=== PATIENT | female | born 1945 | race Caucasian/White ===

== ENCOUNTER 2016-12-06 09:08 | Inpatient (IN) | payer OTHER ==
[~2016-12-06] VITALS: Ht 157.5 cm; Wt 92.0 kg
[~2016-12-06 09:08] MED LIST: ACET-1138 PO; ALBU1AER9 INH; ASPEC81 PO; CLB200 PO; FLVHFA110 INH; OTC SLEEP AID PO; OXYSR10 PO; RXC5 PO; SNK PO
[2016-12-06] MEDS ORDERED: HYDR-3419 PO (10:21)
--- NOTE | 2016-12-06 10:24 | EMERGENCY ROOM VISIT NOTE ---
History Report prepared by Hira: Jeremías Payne Under the Supervision of: Dr. Himanshu Zelaya M.D. First contact with patient: 09:26 Chief Complaint: LEG PAIN,LEG INJURY Stated Complaint: SWOLLEN SORE LEG History of Present Illness The patient is a 71 year old female who presents to the Emergency Room with complaints of worsening left leg pain that started 2 days ago. She also complains of swelling to that leg. The patient notes that her pain is worsened with walking. She denies any chest pain, shortness of breath, fevers, chills, or recent trauma or weight loss. The patient has been having some night-time sweating over the past few days, to the point where she has had to change her clothes. She has past medical history of a left DVT 20 years ago, as well as surgery 10 years ago on her left knee. The patient had a right knee replacement in July. She is not taking any hormonal therapies. She does not smoke or drink alcohol. The patient is not on any blood thinners. Source of History: patient Onset: 2 days ago Position: leg (left) Timing: worsening Modifying Factors (Worsening): exertion (walking) Associated Symptoms: + diaphoresis, No SOB, No chest pain, No chills, No fevers Note: Associated symptoms: Left leg swelling. Review of Systems See HPI for pertinent positives & negatives. A total of 10 systems reviewed and were otherwise negative. Past Medical & Surgical Medical Problems: (1) Arthritis of right knee (2) Left leg DVT Family History Cancer Social History Smoking Status: Never Smoker Alcohol Use: none Drug Use: none Housing Status: lives alone Occupation Status: retired Current/Historical Medications Scheduled Acetaminophen (Tylenol Extra Strength), 1,000 MG PO TID Albuterol (Proair Hfa), 2 PUFFS INH Q4HR PRN Aspirin (Aspirin EC Low Dose), 81 MG PO BID Celecoxib (Celebrex), 200 MG PO BID Levothyroxine Sodium (Synthroid), 50 MCG PO QAM Losartan Potassium (Losartan Potassium), 12.5 MG PO QAM Polyethylene Glycol 3350 (Miralax), 17 GM PO PRN Rivaroxaban (Xarelto), 15 MG PO BID Senna (Senna Lax), 2 TABS PO HS Tolterodine Tartrate (Detrol LA), 1 CAP PO QAM Venlafaxine Hcl (Venlafaxine Hcl Er), 1 TAB PO QAM [Otc Sleep Aid], 1-2 TAB PO HS Scheduled PRN Fluticasone Propionate (Flovent Hfa 110MCG Inhaler *), 2 PUFFS INH BID PRN for PRN Hydrocodone/Acetaminophen 5MG/325MG ([place] 5MG/325MG), 1 TAB PO Q8 PRN for Pain Allergies Coded Allergies: Potato (Verified Allergy, Severe, THROAT SWELLS,EYES ITCHY (RAW POTATOES ONLY), 12/06/16) KOLE Inhibitors (Verified Allergy, Unknown, COUGH, 12/06/16) Adhesives (Verified Allergy, Unknown, HEAVIER SURG TAPE-REDNESS SORE SKIN , 12/06/16) Cat Dander (Verified Allergy, Unknown, ITCHY NOSE, ITCHY EYES,RUNNY NOSE, 12/06/16) Grass (Verified Allergy, Unknown, GRASS,MOLD-ITCHY EYES RUNNY NOSE, ) Latex1 -Allergic Contact Dermititis (Verified Allergy, Unknown, CONTACT DERMATITIS, 12/06/16) Tetanus Toxoid (Verified Allergy, Unknown, SWELLING AT SITE, 12/06/16) Physical Exam Vital Signs Date Time Temp Pulse Resp B/P Pulse Ox O2 Delivery O2 Flow Rate FiO2 12/06/16 13:47 100 18 129/84 94 Room Air 12/06/16 13:02 101 12/06/16 12:40 95 Room Air 12/06/16 12:40 105 19 150/83 95 Room Air 12/06/16 10:31 97 18 148/100 95 Room Air 12/06/16 09:17 37.0 91 18 123/55 92 Room Air Physical Exam GENERAL: Patient is a healthy-appearing well-nourished HEAD: Normocephalic atraumatic EYES: Ocular movements intact pupils equal and react to light OROPHARYNX mucous membranes are moist no exudates present no erythema or edema present NECK: Supple no nuchal rigidity CHEST: Good equal expansion LUNGS: Clear and equal to auscultation CARDIAC: Normal S1 and S2 ABDOMEN: Soft nontender no guarding BACK: No CVA tenderness EXTREMITIES: Left leg is grossly swollen NEURO: Patient is following commands is answering questions appropriately. Alert and oriented x3 Cranial Nerves 2-12 grossly intact Medical Decision & Procedures ER Provider Diagnostic Interpretation: X-ray results as stated below per my interpretation and radiologist interpretation. Other radiology results as stated below per my review and radiologist interpretation: ULTRASOUND LEFT LOWER EXTREMITY VENOUS CLINICAL HISTORY: Left leg swelling. COMPARISON STUDY: No priors. TECHNIQUE: Real-time, grayscale, and color Doppler sonography of the deep veins of the left lower extremity was performed from the inguinal crease to the calf. Compression and augmentation were utilized. FINDINGS: There is extensive and nearly occlusive deep venous thrombosis seen throughout the left lower extremity, extending from the left common femoral vein to the calf. There is complete thrombosis of the left greater saphenous vein at the junction with the common femoral vein. Thrombus is also seen within the profunda femoris vein. IMPRESSION: Extensive left lower extremity deep venous thrombosis as above. Electronically signed by: Henrry Vazquez M.D. 12/06/2016 12:28 PM Dictated Date/Time: 12/06/2016 12:[address] ANGIOGRAM OF THE CHEST CLINICAL HISTORY: Leg pain. Deep venous thrombosis. COMPARISON STUDY: Chest x-ray dated 05/30/2016. TECHNIQUE: Following the IV administration of 118 cc of Optiray 320, CT angiogram of the chest was performed from the upper abdomen to the thoracic inlet utilizing the pulmonary embolus protocol. Images are reviewed in the axial, sagittal, and coronal planes. 3-D MIPS images are created and assessed. IV contrast was administered without complication. CT DOSE: 581.22 mGy.cm FINDINGS: Thyroid: Imaged portions of the thyroid gland are normal in size and attenuation. Thoracic aorta: There is mild after carotid calcification of the thoracic aorta, which is normal in caliber and demonstrates bovine variant arch anatomy. No dissection is seen. Pulmonary vasculature: The pulmonary trunk is normal in caliber. There are no filling defects identified in main, lobar, or proximal segmental pulmonary branches to suggest pulmonary embolus. Evaluation of the peripheral branches is degraded by motion artifact. Heart: The heart is top normal in size and without pericardial effusion. Lungs and pleural spaces: Evaluation of the lung parenchyma is significantly degraded by expiratory motion artifact. There is no lobar consolidation or pleural effusion. Scarring is noted in the left upper lobe. Trachea and central airways appear clear. Mild diffuse peribronchial thickening is noted. Foci of air trapping are suggested. Mild mucous plugging is noted in the left lower lobe. Mediastinum: There is no mediastinal lymphadenopathy. Ronit: Clear. Axillae: There is no axillary lymphadenopathy. Upper abdomen: There is a small hiatal hernia. Fatty atrophy is noted in the pancreas. Partially visualized upper abdominal viscera is otherwise within normal limits. Skeletal structures: No lytic or blastic bony lesions are seen. IMPRESSION: 1. There is no evidence of pulmonary embolus in the main, lobar, or proximal segmental pulmonary arteries. 2. There is no airspace consolidation or pleural effusion. 3. Mild diffuse peribronchial thickening suggests reactive airway disease. Small foci of mucous plugging are noted in the lower lobes. Clinical correlation will be required. 4. Additional changes as above. Electronically signed by: Henrry Vazquez M.D. 12/06/2016 1:54 PM Dictated Date/Time: 12/06/2016 1:47 PM Laboratory Results Test 12/06/16 12:45 12/06/16 13:07 12/06/16 14:00 Immature Granulocyte % (Auto) 0.9 % White Blood Count 16.37 K/uL (4.8-10.8) Red Blood Count 4.78 M/uL (4.2-5.4) Hemoglobin 12.6 g/dL (12.0-16.0) Hematocrit 37.5 % (37-47) Mean Corpuscular Volume 78.5 fL (80-100) Mean Corpuscular Hemoglobin 26.4 pg (25-34) Mean Corpuscular Hemoglobin Concent 33.6 g/dl (32-36) Platelet Count 181 K/uL (130-400) Mean Platelet Volume 9.9 fL (7.4-10.4) Neutrophils (%) (Auto) 81.9 % Lymphocytes (%) (Auto) 8.7 % Monocytes (%) (Auto) 8.2 % Eosinophils (%) (Auto) 0.2 % Basophils (%) (Auto) 0.1 % Neutrophils # (Auto) 13.41 K/uL (1.4-6.5) Lymphocytes # (Auto) 1.43 K/uL (1.2-3.4) Monocytes # (Auto) 1.34 K/uL (0.11-0.59) Eosinophils # (Auto) 0.03 K/uL (0-0.5) Basophils # (Auto) 0.02 K/uL (0-0.2) Immature Granulocyte # (Auto) 0.14 K/uL (0.00-0.02) Activated Partial Thromboplast Time 25.8 SECONDS (21.0-31.0) Partial Thromboplastin Ratio 1.0 Total Bilirubin 0.8 mg/dl (0.2-1) Aspartate Amino Transf (AST/SGOT) 14 U/L (15-37) Alanine Aminotransferase (ALT/SGPT) 16 U/L (12-78) Alkaline Phosphatase 66 U/L (45-117) Total Protein 6.8 gm/dl (6.4-8.2) Albumin 2.9 gm/dl (3.4-5.0) Globulin 3.9 gm/dl (2.5-4.0) Albumin/Globulin Ratio 0.7 (0.9-2) Hepatitis C Antibody Screen NEG (NEG) Bedside Hemoglobin 12.6 g/dl (12.0-16.0) Bedside Hematocrit 37 % (37-47) Bedside Sodium 140 mEq/L (135-144) Bedside Potassium 3.4 mEq/L (3.3-5.0) Bedside Chloride 105 mEq/L (101-112) Bedside Total CO2 22 mEq/l (24-31) Bedside Blood Urea Nitrogen 14 mg/dl (7-18) Bedside Creatinine 0.9 mg/dl (0.6-1.3) Bedside Glucose (other) 90 mg/dl (70-99) Bedside Ionized Calcium (Rosario) 1.13 mmol/l (1.12-1.32) Labs reviewed by ED physician. Medications Administered Medications (Trade) Dose Ordered Sig/Anna Route Start Time Stop Time Status Last Admin Dose Admin Acetaminophen/ Hydrocodone Bitart ([place] 5/325 Tab) 2 tab NOW STAT PO 12/06/16 10:25 12/06/16 10:26 DC 12/06/16 10:31 2 TAB ED Course 1019: Past medical records reviewed. The patient was evaluated in room A2. A complete history and physical examination was performed. 1025: Ordered [place] 5/325 Tab 2 tab PO. 1403: I reevaluated the patient and she is resting comfortably. The patient verbally expressed understanding and agreement of the treatment plan. The patient will be evaluated for further treatment. 1406: I discussed the patient with Dr. Ulices Sauceda psychiatric aide instructor - he will evaluate the patient for further treatment. Medical Decision Differential diagnosis: Etiologies such as DVT, musculoskeletal, infection, joint effusion, trauma, lymphedema, idiopathic, CHF, as well as others were entertained. This is a 71-year-old female who presents emergency department complaining of swollen left leg to the point that the patient cannot longer walk in her leg. She does have a large DVT present. Because of the size of the DVT the patient was also sent for CAT scan of the chest. This did not show any evidence of a PE. I did discuss the case with the hospitalist service who agreed to admit the patient. Patient family were in agreement with the treatment plan. Consults Time Called: 1400 Consulting Physician: Dr. Ulices Sauceda psychiatric aide instructor Returned Call: 1406 I discussed the patient with Dr. Ulices Sauceda psychiatric aide instructor - he will evaluate the patient for further treatment. Impression Primary Impression: Deep vein thrombosis Scribe Attestation The scribe's documentation has been prepared under my direction and personally reviewed by me in its entirety. I confirm that the note above accurately reflects all work, treatment, procedures, and medical decision making performed by me. Departure Information Dispostion Being Evaluated By Hospitalist Prescriptions Rivaroxaban (Xarelto) 15 Mg Tab 15 MG PO BID for 21 Days, #42 Prov: Ayana Betancur M.D. 12/07/16 Hydrocodone/Acetaminophen 5MG/325MG ([place] 5MG/325MG) Tab 1 TAB PO Q8 Y for Pain for 7 Days, #21 TAB PRN PAIN Prov: Ayana Betancur M.D. 12/07/16 Referrals Kari Walters D.O. (PCP) Patient Instructions My [facility] Problem Qualifiers Primary Impression: Deep vein thrombosis DVT location: lower extremity Affected thrombotic vein of extremity: unspecified vein of extremity Laterality: left Chronicity: acute Qualified Codes: I82.402 - Acute embolism and thrombosis of unspecified deep veins of left lower extremity
[2016-12-06] MEDS ORDERED: HYDROCODONE/ACETAMOPHEN 5/325MG TAB PO STA (10:25)
--- NOTE | 2016-12-06 12:29 | DIAGNOSTIC IMAGING REPORT ---
ULTRASOUND LEFT LOWER EXTREMITY VENOUS CLINICAL HISTORY: Left leg swelling. COMPARISON STUDY: No priors. TECHNIQUE: Real-time, grayscale, and color Doppler sonography of the deep veins of the left lower extremity was performed from the inguinal crease to the calf. Compression and augmentation were utilized. FINDINGS: There is extensive and nearly occlusive deep venous thrombosis seen throughout the left lower extremity, extending from the left common femoral vein to the calf. There is complete thrombosis of the left greater saphenous vein at the junction with the common femoral vein. Thrombus is also seen within the profunda femoris vein. IMPRESSION: Extensive left lower extremity deep venous thrombosis as above. Electronically signed by: Henrry Vazquez M.D. 12/06/2016 12:28 PM Dictated Date/Time: 12/06/2016 12:26 PM
[2016-12-06] MEDS ORDERED: OPTIRAY 320 IV PRN (12:45)
[2016-12-06 13:01] LABS: BASO % 0.1 %; BASO ABS # 0.02 K/uL (0-0.2); COMPLETE YES; EOS % 0.2 %; HEMATOCRIT 37.5 % (37-47); IG% 0.9 %; LYMPH % 8.7 %; LYMPH ABS # 1.43 K/uL (1.2-3.4); MEAN CELL VOLUME 78.5 fL (80-100); MEAN CORPUSCULAR HEMOGLOBIN 26.4 pg (25-34); MEAN CORPUSCULAR HGB CONC 33.6 g/dl (32-36); MEAN PLATELET VOLUME 9.9 fL (7.4-10.4); MONO % 8.2 %; NEUT % 81.9 %; PLATELET COUNT 181 K/uL (130-400); RED BLOOD COUNT 4.78 M/uL (4.2-5.4); WHITE BLOOD COUNT 16.37 K/uL (4.8-10.8)
[2016-12-06 13:18] LABS: ISTAT CREATININE 0.9 mg/dl (0.6-1.3); ISTAT HEMOGLOBIN 12.6 g/dl (12.0-16.0); ISTAT IONIZED CALCIUM 1.13 mmol/l (1.12-1.32)
[2016-12-06 13:18] LABS: BUN/CREATININE RATIO 15.9 (10-20); CALCIUM 8.3 mg/dl (8.5-10.1); CREATININE 0.92 mg/dl (0.60-1.20); POTASSIUM 3.5 mmol/L (3.5-5.1)
[2016-12-06 13:21] LABS: ALB/GLOB RATIO 0.7 (0.9-2)
[2016-12-06 13:25] LABS: INR 1.1 (0.9-1.1); PROTHROMBIN TIME (PATIENT) 11.4 SECONDS (9.0-12.0)
--- NOTE | 2016-12-06 13:55 | DIAGNOSTIC IMAGING REPORT ---
CT ANGIOGRAM OF THE CHEST CLINICAL HISTORY: Leg pain. Deep venous thrombosis. COMPARISON STUDY: Chest x-ray dated 05/30/2016. TECHNIQUE: Following the IV administration of 118 cc of Optiray 320, CT angiogram of the chest was performed from the upper abdomen to the thoracic inlet utilizing the pulmonary embolus protocol. Images are reviewed in the axial, sagittal, and coronal planes. 3-D MIPS images are created and assessed. IV contrast was administered without complication. CT DOSE: 581.22 mGy.cm FINDINGS: Thyroid: Imaged portions of the thyroid gland are normal in size and attenuation. Thoracic aorta: There is mild after carotid calcification of the thoracic aorta, which is normal in caliber and demonstrates bovine variant arch anatomy. No dissection is seen. Pulmonary vasculature: The pulmonary trunk is normal in caliber. There are no filling defects identified in main, lobar, or proximal segmental pulmonary branches to suggest pulmonary embolus. Evaluation of the peripheral branches is degraded by motion artifact. Heart: The heart is top normal in size and without pericardial effusion. Lungs and pleural spaces: Evaluation of the lung parenchyma is significantly degraded by expiratory motion artifact. There is no lobar consolidation or pleural effusion. Scarring is noted in the left upper lobe. Trachea and central airways appear clear. Mild diffuse peribronchial thickening is noted. Foci of air trapping are suggested. Mild mucous plugging is noted in the left lower lobe. Mediastinum: There is no mediastinal lymphadenopathy. Ronit: Clear. Axillae: There is no axillary lymphadenopathy. Upper abdomen: There is a small hiatal hernia. Fatty atrophy is noted in the pancreas. Partially visualized upper abdominal viscera is otherwise within normal limits. Skeletal structures: No lytic or blastic bony lesions are seen. IMPRESSION: 1. There is no evidence of pulmonary embolus in the main, lobar, or proximal segmental pulmonary arteries. 2. There is no airspace consolidation or pleural effusion. 3. Mild diffuse peribronchial thickening suggests reactive airway disease. Small foci of mucous plugging are noted in the lower lobes. Clinical correlation will be required. 4. Additional changes as above. Electronically signed by: Henrry Vazquez M.D. 12/06/2016 1:54 PM Dictated Date/Time: 12/06/2016 1:47 PM
[2016-12-06] MEDS ORDERED: ENOXAPARIN 1 MG/KG SQ SCH (14:45)
[2016-12-06] MEDS ORDERED: ACETAMINOPHEN 325 MG TAB PO PRN (15:00)
[2016-12-06] MEDS ORDERED: ONDANSETRON INJ 2 MG/ML 2 ML VIAL IV PRN (15:00)
[2016-12-06] MEDS ORDERED: ENOXAPARIN 100 MG/1ML SYR SQ SCH (16:15)
[2016-12-06] MEDS ORDERED: FLUTICASONE HFA 110MCG INHALER INH PRN (16:30)
[2016-12-06] MEDS ORDERED: HYDROCODONE/ACETAMOPHEN 5/325MG TAB PO PRN (16:30)
[2016-12-06 17:00] VITALS: BP 118/77; PULSE 93; PULSE 96; TEMP 36.5; O2SAT 93; O2SAT 94; Ht 157.5 cm; Wt 92.0 kg
--- NOTE | 2016-12-06 20:32 | History and Physical ---
History & Physical Date & Time of Service: Dec 06, 2016 at 20:01 Chief Complaint: Deep Vein Thrombosis Primary Care Physician: Kari Walters D.O. History of Present Illness Source: patient, clinic records, hospital records 71 year old female with PMH HTN, obesity, history of MTHFR mutation, OA presents to the Emergency Room with complaints of worsening LLE pain and swelling that started since Saturday. Pt said that today the pain got worst. she said that she cannot walk or stand for a long period of time on the left leg due to the pain. She said that she has been having some night-time sweating over the past few days. she had right knee surgery done last July. She denies any recent travel, long car trip or trauma. She had a Right LE DVT back about 15 to 20 years ago. Denies any chest pain, shortness of breath, fevers, palpitation. Past Medical/Surgical History Medical Problems: (1) Left leg DVT Status: Resolved Family History Cancer Social History Smoking Status: Never Smoker Alcohol Use: none Drug Use: none Occupational Status: retired Immunizations History of Influenza Vaccine: Yes History of Tetanus Vaccine?: No History of Pneumococcal: Yes History of Hepatitis B Vaccine: No Multi-Drug Resistant Organisms History of MDRO: No Allergies Coded Allergies: Potato (Verified Allergy, Severe, THROAT SWELLS,EYES ITCHY (RAW POTATOES ONLY), 12/06/16) KOLE Inhibitors (Verified Allergy, Unknown, COUGH, 12/06/16) Adhesives (Verified Allergy, Unknown, HEAVIER SURG TAPE-REDNESS SORE SKIN , 12/06/16) Cat Dander (Verified Allergy, Unknown, ITCHY NOSE, ITCHY EYES,RUNNY NOSE, 12/06/16) Grass (Verified Allergy, Unknown, GRASS,MOLD-ITCHY EYES RUNNY NOSE, ) Latex1 -Allergic Contact Dermititis (Verified Allergy, Unknown, CONTACT DERMATITIS, 12/06/16) Tetanus Toxoid (Verified Allergy, Unknown, SWELLING AT SITE, 12/06/16) Home Medications Scheduled Acetaminophen (Tylenol Extra Strength), 1,000 MG PO TID Albuterol (Proair Hfa), 2 PUFFS INH Q4HR PRN Aspirin (Aspirin EC Low Dose), 81 MG PO BID Celecoxib (Celebrex), 200 MG PO BID Levothyroxine Sodium (Synthroid), 50 MCG PO QAM Losartan Potassium (Losartan Potassium), 12.5 MG PO QAM Polyethylene Glycol 3350 (Miralax), 17 GM PO PRN Senna (Senna Lax), 2 TABS PO HS Tolterodine Tartrate (Detrol LA), 1 CAP PO QAM Venlafaxine Hcl (Venlafaxine Hcl Er), 1 TAB PO QAM [Otc Sleep Aid], 1-2 TAB PO HS Scheduled PRN Fluticasone Propionate (Flovent Hfa 110MCG Inhaler *), 2 PUFFS INH BID PRN for PRN Physical Exam Vital Signs Date Time Temp Pulse Resp B/P Pulse Ox O2 Delivery O2 Flow Rate FiO2 12/06/16 17:00 36.5 96 24 118/77 93 Room Air 12/06/16 16:52 101 18 100/79 93 Room Air 12/06/16 15:42 93 18 120/80 93 Room Air 12/06/16 13:47 100 18 129/84 94 Room Air 12/06/16 13:02 101 12/06/16 12:40 95 Room Air 12/06/16 12:40 105 19 150/83 95 Room Air 12/06/16 10:31 97 18 148/100 95 Room Air 12/06/16 09:17 37.0 91 18 123/55 92 Room Air General Appearance: WD/WN, no apparent distress Head: normocephalic, atraumatic Eyes: normal inspection, PERRL, EOMI ENT: normal ENT inspection, hearing grossly normal Neck: supple, no JVD Respiratory/Chest: lungs clear, normal breath sounds, no respiratory distress, no accessory muscle use Cardiovascular: regular rate, rhythm, no JVD Abdomen/GI: normal bowel sounds, non tender, soft Back: normal inspection, no CVA tenderness Extremities/Musculoskelatal: + calf tenderness (left), + pertinent finding ( left left tendernes and swelling) Neurologic/Psych: fine hairer II-XII nml as tested, no motor/sensory deficits, alert, normal mood/affect, oriented x 3 Skin: warm/dry, no rash Diagnostics Laboratory Results Results Past 24 Hours Test 12/06/16 12:45 12/06/16 13:07 12/06/16 14:00 Range/Units White Blood Count 16.37 4.8-10.8 K/uL Red Blood Count 4.78 4.2-5.4 M/uL Hemoglobin 12.6 12.0-16.0 g/dL Hematocrit 37.5 37-47 % Mean Corpuscular Volume 78.5 80-100 fL Mean Corpuscular Hemoglobin 26.4 25-34 pg Mean Corpuscular Hemoglobin Concent 33.6 32-36 g/dl Platelet Count 181 130-400 K/uL Mean Platelet Volume 9.9 7.4-10.4 fL Neutrophils (%) (Auto) 81.9 % Lymphocytes (%) (Auto) 8.7 % Monocytes (%) (Auto) 8.2 % Eosinophils (%) (Auto) 0.2 % Basophils (%) (Auto) 0.1 % Neutrophils # (Auto) 13.41 1.4-6.5 K/uL Lymphocytes # (Auto) 1.43 1.2-3.4 K/uL Monocytes # (Auto) 1.34 0.11-0.59 K/uL Eosinophils # (Auto) 0.03 0-0.5 K/uL Basophils # (Auto) 0.02 0-0.2 K/uL RDW Standard Deviation 49.4 36.4-46.3 fL RDW Coefficient of Variation 17.2 11.5-14.5 % Immature Granulocyte % (Auto) 0.9 % Immature Granulocyte # (Auto) 0.14 0.00-0.02 K/uL Prothrombin Time 11.4 9.0-12.0 SECONDS Prothromb Time International Ratio 1.1 0.9-1.1 Activated Partial Thromboplast Time 25.8 21.0-31.0 SECONDS Partial Thromboplastin Ratio 1.0 Sodium Level 142 136-145 mmol/L Potassium Level 3.5 3.5-5.1 mmol/L Chloride Level 109 98-107 mmol/L Carbon Dioxide Level 24 21-32 mmol/L Anion Gap 9.0 17.0 16-25 mmol/L Blood Urea Nitrogen 15 7-18 mg/dl Creatinine 0.92 0.60-1.20 mg/dl Est Creatinine Clear Calc Drug Dose 60.1 ml/min Estimated GFR () 73.1 Estimated GFR (Non- 63.1 BUN/Creatinine Ratio 15.9 10-20 Random Glucose 89 70-99 mg/dl Calcium Level 8.3 8.5-10.1 mg/dl Total Bilirubin 0.8 0.2-1 mg/dl Aspartate Amino Transf (AST/SGOT) 14 15-37 U/L Alanine Aminotransferase (ALT/SGPT) 16 12-78 U/L Alkaline Phosphatase 66 45-117 U/L Total Protein 6.8 6.4-8.2 gm/dl Albumin 2.9 3.4-5.0 gm/dl Globulin 3.9 2.5-4.0 gm/dl Albumin/Globulin Ratio 0.7 0.9-2 Bedside Hemoglobin 12.6 12.0-16.0 g/dl Bedside Hematocrit 37 37-47 % Bedside Sodium 140 135-144 mEq/L Bedside Potassium 3.4 3.3-5.0 mEq/L Bedside Chloride 105 101-112 mEq/L Bedside Total CO2 22 24-31 mEq/l Bedside Blood Urea Nitrogen 14 7-18 mg/dl Bedside Creatinine 0.9 0.6-1.3 mg/dl Bedside Glucose (other) 90 70-99 mg/dl Bedside Ionized Calcium (Rosario) 1.13 1.12-1.32 mmol/l Diagnostic Radiology ULTRASOUND LEFT LOWER EXTREMITY VENOUS CLINICAL HISTORY: Left leg swelling. COMPARISON STUDY: No priors. TECHNIQUE: Real-time, grayscale, and color Doppler sonography of the deep veins of the left lower extremity was performed from the inguinal crease to the calf. Compression and augmentation were utilized. FINDINGS: There is extensive and nearly occlusive deep venous thrombosis seen throughout the left lower extremity, extending from the left common femoral vein to the calf. There is complete thrombosis of the left greater saphenous vein at the junction with the common femoral vein. Thrombus is also seen within the profunda femoris vein. IMPRESSION: Extensive left lower extremity deep venous thrombosis as above. Electronically signed by: Henrry Vazquez M.D. 12/06/2016 12:[address] ANGIOGRAM OF THE CHEST CLINICAL HISTORY: Leg pain. Deep venous thrombosis. COMPARISON STUDY: Chest x-ray dated 05/30/2016. TECHNIQUE: Following the IV administration of 118 cc of Optiray 320, CT angiogram of the chest was performed from the upper abdomen to the thoracic inlet utilizing the pulmonary embolus protocol. Images are reviewed in the axial, sagittal, and coronal planes. 3-D MIPS images are created and assessed. IV contrast was administered without complication. CT DOSE: 581.22 mGy.cm FINDINGS: Thyroid: Imaged portions of the thyroid gland are normal in size and attenuation. Thoracic aorta: There is mild after carotid calcification of the thoracic aorta, which is normal in caliber and demonstrates bovine variant arch anatomy. No dissection is seen. Pulmonary vasculature: The pulmonary trunk is normal in caliber. There are no filling defects identified in main, lobar, or proximal segmental pulmonary branches to suggest pulmonary embolus. Evaluation of the peripheral branches is degraded by motion artifact. Heart: The heart is top normal in size and without pericardial effusion. Lungs and pleural spaces: Evaluation of the lung parenchyma is significantly degraded by expiratory motion artifact. There is no lobar consolidation or pleural effusion. Scarring is noted in the left upper lobe. Trachea and central airways appear clear. Mild diffuse peribronchial thickening is noted. Foci of air trapping are suggested. Mild mucous plugging is noted in the left lower lobe. Mediastinum: There is no mediastinal lymphadenopathy. Ronit: Clear. Axillae: There is no axillary lymphadenopathy. Upper abdomen: There is a small hiatal hernia. Fatty atrophy is noted in the pancreas. Partially visualized upper abdominal viscera is otherwise within normal limits. Skeletal structures: No lytic or blastic bony lesions are seen. IMPRESSION: 1. There is no evidence of pulmonary embolus in the main, lobar, or proximal segmental pulmonary arteries. 2. There is no airspace consolidation or pleural effusion. 3. Mild diffuse peribronchial thickening suggests reactive airway disease. Small foci of mucous plugging are noted in the lower lobes. Clinical correlation will be required. 4. Additional changes as above. Electronically signed by: Henrry Vazquez M.D. Impression Assessment and Plan LLE DVT/PAIN Doppler U/S showed There is extensive and nearly occlusive deep venous thrombosis seen throughout the left lower extremity, extending from the left common femoral vein to the calf. There is complete thrombosis of the left greater saphenous vein at the junction with the common femoral vein CTA thorax was negative for PE VS stable, saturated well RA Coag work up pending Will start on lovenox 90 mg BID and coumadin 5 mg Will monitor INR Will do hydrocodone prn for the pain continue monitor pt. HTN Continue losartan 12.5 mg daily continue monitor BP ELEVATED DVT mostly reactive due to DVT afebrile will monitor CBC Asthma stable continue respiratory treatment Obesity Diet and exrcise DVT px on lovenox/coumadin CODE STATUS DNR Level of Care Med/Surg Advanced Directives Existing Living Will: No Existing Power of Donor Specialist: No Resuscitation Status DO NOT RESUSCITATE VTE Prophylaxis VTE Risk Assessment Done? Y/N: Yes Risk Level: High Given or contraindicated: Enoxaparin (Lovenox)SQ, Warfarin (Coumadin) Additional Copies To Kari Walters D.O.
[2016-12-06] MEDS ORDERED: WARFARIN SOD 5 MG TAB PO ONE (21:00)
[2016-12-06] MEDS: ASPIRIN 81 MG ECTAB PO SCH (22:07)
[2016-12-06 23:03] VITALS: BP 120/73; PULSE 95; TEMP 36.7; O2SAT 92
[2016-12-06] MEDS ORDERED: LORAZEPAM 0.5 MG TAB PO ONE (23:30)
[2016-12-07] VITALS: O2SAT 95
[2016-12-07] MEDS ORDERED: HYDROmorphone INJ 0.5 MG/0.5 ML SYR IV ONE (02:00)
[2016-12-07] MEDS ORDERED: HYDROCODONE/ACETAMOPHEN 5/325MG TAB PO PRN ×2 (04:00→06:00)
[2016-12-07] MEDS ORDERED: ENOXAPARIN 100 MG/1ML SYR SQ SCH (06:00)
[2016-12-07] MEDS ORDERED: LEVOTHYROXINE 50 MCG TAB PO SCH (06:30)
[2016-12-07 07:32] LABS: HEMATOCRIT 35.1 % (37-47); MEAN CELL VOLUME 80.9 fL (80-100); MEAN CORPUSCULAR HEMOGLOBIN 26.3 pg (25-34); MEAN CORPUSCULAR HGB CONC 32.5 g/dl (32-36); MEAN PLATELET VOLUME 10.1 fL (7.4-10.4); PLATELET COUNT 181 K/uL (130-400); RED BLOOD COUNT 4.34 M/uL (4.2-5.4); WHITE BLOOD COUNT 11.29 K/uL (4.8-10.8)
[2016-12-07 07:37] LABS: INR 1.1 (0.9-1.1); PROTHROMBIN TIME (PATIENT) 11.3 SECONDS (9.0-12.0)
[2016-12-07 08:06] VITALS: O2SAT 95
[2016-12-07 08:07] VITALS: BP 132/84; PULSE 80; TEMP 36.8; O2SAT 95
[2016-12-07 08:17] LABS: BUN/CREATININE RATIO 18.1 (10-20); CALCIUM 8.5 mg/dl (8.5-10.1); CREATININE 0.98 mg/dl (0.60-1.20); POTASSIUM 3.6 mmol/L (3.5-5.1)
[2016-12-07] MEDS: ASPIRIN 81 MG ECTAB PO SCH (08:17)
[2016-12-07] MEDS ORDERED: TOLTERODINE TARTRATE LA 4 MG CAPCR PO SCH (09:00)
[2016-12-07] MEDS ORDERED: VENLAFAXINE HCL XR 150 MG CAPXR PO SCH (09:00)
[2016-12-07] MEDS ORDERED: LOSARTAN POTASSIUM 25 MG TAB PO SCH (09:00)
[2016-12-07 09:22] VITALS: O2SAT 95
--- NOTE | 2016-12-07 12:30 | Progress Note ---
Medicine Progress Note Date & Time of Visit: Dec 07, 2016 at 12:17. Subjective Pt was seen and examined Lying in bed with no distress Pt said that she is still having pain in the left leg The leg is swollen Denies any chest pain, palpitation, dizziness and SOB Objective Last 8 Hrs Date Time Temp Pulse Resp B/P Pulse Ox O2 Delivery O2 Flow Rate FiO2 12/07/16 09:22 95 Room Air 12/07/16 08:07 36.8 80 16 132/84 95 Room Air 12/07/16 08:06 95 Room Air Physical Exam: General- No acute distress Head- atraumatic Eyes- PERRL, EOMI ENT- oropharynx clear Neck- supple, no JVD Lungs- clear to auscultation and percussion Heart- regular rhythm; no murmur Abdomen- normal bowel sounds, soft Extremities- + LLE edema and pain Neuro- alert, oriented x 3; PERRL, EOMI Skin- warm & dry Laboratory Results: Last 24 Hours Test 12/06/16 12:45 12/06/16 13:07 12/06/16 14:00 12/07/16 07:18 White Blood Count 16.37 K/uL 11.29 K/uL Red Blood Count 4.78 M/uL 4.34 M/uL Hemoglobin 12.6 g/dL 11.4 g/dL Hematocrit 37.5 % 35.1 % Mean Corpuscular Volume 78.5 fL 80.9 fL Mean Corpuscular Hemoglobin 26.4 pg 26.3 pg Mean Corpuscular Hemoglobin Concent 33.6 g/dl 32.5 g/dl Platelet Count 181 K/uL 181 K/uL Mean Platelet Volume 9.9 fL 10.1 fL Neutrophils (%) (Auto) 81.9 % Lymphocytes (%) (Auto) 8.7 % Monocytes (%) (Auto) 8.2 % Eosinophils (%) (Auto) 0.2 % Basophils (%) (Auto) 0.1 % Neutrophils # (Auto) 13.41 K/uL Lymphocytes # (Auto) 1.43 K/uL Monocytes # (Auto) 1.34 K/uL Eosinophils # (Auto) 0.03 K/uL Basophils # (Auto) 0.02 K/uL RDW Standard Deviation 49.4 fL 52.4 fL RDW Coefficient of Variation 17.2 % 17.6 % Immature Granulocyte % (Auto) 0.9 % Immature Granulocyte # (Auto) 0.14 K/uL Prothrombin Time 11.4 SECONDS 11.3 SECONDS Prothromb Time International Ratio 1.1 1.1 Activated Partial Thromboplast Time 25.8 SECONDS Partial Thromboplastin Ratio 1.0 Sodium Level 142 mmol/L 139 mmol/L Potassium Level 3.5 mmol/L 3.6 mmol/L Chloride Level 109 mmol/L 105 mmol/L Carbon Dioxide Level 24 mmol/L 23 mmol/L Anion Gap 9.0 mmol/L 17.0 mmol/L 11.0 mmol/L Blood Urea Nitrogen 15 mg/dl 18 mg/dl Creatinine 0.92 mg/dl 0.98 mg/dl Est Creatinine Clear Calc Drug Dose 60.1 ml/min 56.4 ml/min Estimated GFR () 73.1 67.7 Estimated GFR (Non- 63.1 58.4 BUN/Creatinine Ratio 15.9 18.1 Random Glucose 89 mg/dl 114 mg/dl Calcium Level 8.3 mg/dl 8.5 mg/dl Total Bilirubin 0.8 mg/dl Aspartate Amino Transf (AST/SGOT) 14 U/L Alanine Aminotransferase (ALT/SGPT) 16 U/L Alkaline Phosphatase 66 U/L Total Protein 6.8 gm/dl Albumin 2.9 gm/dl Globulin 3.9 gm/dl Albumin/Globulin Ratio 0.7 Hepatitis C Antibody Screen NEG Bedside Hemoglobin 12.6 g/dl Bedside Hematocrit 37 % Bedside Sodium 140 mEq/L Bedside Potassium 3.4 mEq/L Bedside Chloride 105 mEq/L Bedside Total CO2 22 mEq/l Bedside Blood Urea Nitrogen 14 mg/dl Bedside Creatinine 0.9 mg/dl Bedside Glucose (other) 90 mg/dl Bedside Ionized Calcium (Rosario) 1.13 mmol/l Assessment & Plan LLE DVT/PAIN Doppler U/S showed There is extensive and nearly occlusive deep venous thrombosis seen throughout the left lower extremity, extending from the left common femoral vein to the calf. There is complete thrombosis of the left greater saphenous vein at the junction with the common femoral vein CTA thorax was negative for PE VS stable, saturated well RA Coag work up pending Case discussed today with vascular for the complete saphenous vein that recommends to treat with anticoagulant. She was started on lovenox 90 mg BID and coumadin 5 mg yesterday Pt said that she would rather try the new anticoagulant agents Will check to see if her insurance will cover for the new agents Continue hydrocodone prn for the pain HTN Continue losartan 12.5 mg daily continue monitor BP ELEVATED DVT mostly reactive due to DVT afebrile WBC trending down Asthma stable continue respiratory treatment Obesity Diet and exrcise DVT px on lovenox/coumadin CODE STATUS DNR Current Inpatient Medications: Current Inpatient Medications Medications (Trade) Dose Ordered Sig/Anna Route Start Time Stop Time Status Last Admin Dose Admin Ioversol (Optiray 320) 100 ml UD PRN IV 12/06/16 12:45 12/10/16 12:44 Acetaminophen (Tylenol Tab) 650 mg Q4H PRN PO 12/06/16 15:00 01/05/17 14:59 Ondansetron HCl (Zofran Inj) 4 mg Q6H PRN IV 12/06/16 15:00 01/05/17 14:59 Aspirin (Ecotrin Tab) 81 mg BID PO 12/06/16 21:00 01/05/17 20:59 12/07/16 08:17 81 MG Fluticasone Propionate (Flovent Hfa 110MCG Inhaler) 2 puffs BID PRN INH 12/06/16 16:30 01/05/17 16:29 Levothyroxine Sodium (Synthroid Tab) 50 mcg DAILYBB PO 12/07/16 06:30 01/06/17 06:29 12/07/16 05:55 50 MCG Losartan Potassium (coZAAR TAB) 12.5 mg QAM PO 12/07/16 09:00 01/06/17 08:59 12/07/16 08:18 12.5 MG Tolterodine Tartrate (Detrol LA Cap) 4 mg QAM PO 12/07/16 09:00 01/06/17 08:59 12/07/16 08:17 4 MG Venlafaxine HCl (effeXOR EXTENDED REL CAP) 150 mg QAM PO 12/07/16 09:00 01/06/17 08:59 12/07/16 08:17 150 MG Enoxaparin Sodium (Lovenox Inj) 90 mg Q12@0600,1800 SQ 12/07/16 06:00 01/06/17 05:59 12/07/16 05:56 90 MG Warfarin Sodium (Coumadin Tab) 5 mg DAILY@16 PO 12/07/16 16:00 01/06/17 15:59 Acetaminophen/ Hydrocodone Bitart ([place] 5/325 Tab) pain not relieved by tylenol Q6HWA PRN PO 12/07/16 04:00 12/21/16 03:59
[2016-12-07 15:19] VITALS: BP 114/69; PULSE 97; TEMP 36.8; O2SAT 96
[2016-12-07] MEDS ORDERED: WARFARIN SOD 5 MG TAB PO SCH (16:00)
[2016-12-07] MEDS ORDERED: RIVAROXABAN TAB 15 MG TAB PO ONE (16:09)
[2016-12-07] MEDS ORDERED: HYDR-5688 PO (16:20)
--- NOTE | 2016-12-07 16:39 | Discharge Instructions ---
Discharge Instructions Admission Reason for Admission: Deep Vein Thrombosis Discharge Discharge Diagnosis / Problem: (1) Deep vein thrombosis VTE Date & Time Date of VTE Diagnosis: Dec 06, 2016 Time of VTE Diagnosis: 12:26 Discharge Goals Goal(s): Decrease discomfort, Improve function, Improve disease control Activity Recommendations Activity Limitations: resume your previous activity (as tolerated) . Instructions / Follow-Up Instructions / Follow-Up Please follow up with your primary care provider Dr. Walters on Dec 13 at 10: 50 am you will be starting on Xarelto that is a blood thinner, first dose given before discharge Please monitor for any bleeding, if any bleeding occurs, please seek medical attention Please give patient one tab of Xarelto to take home that she can take in the morning. Medication Instructions: Your condition is typically treated with an anticoagulant. Anticoagulants will thin your blood to help prevent new clots. * You should take her medication exactly as directed. * Never skip a dose. * Never take a double dose. If you miss a dose, take it as soon as you remember. Call your Primary Care doctor if you experience any of the following: * Swelling or Pain in your leg * Sudden, continuous pain deep in a muscle * Pain that worsens when you are active or when you stand still for a long time * Chest Pain * Sudden Shortness of Breath * Rapid or pounding heart beat * Fainting * Dizziness * Cough with blood or bloody sputum * Sweating more than normal * Bruises * Heavy or uncontrolled bleeding * Blood in your urine, stool or vomit * Black or tarry stools Caring for Your Self at Home: * Avoid sitting, standing or lying down for long periods without moving your legs and feet * When traveling by car, stop to get out and move around at least once every 3 hours * On long airplane, train or bus rides, get up and move around when possible * If you can't get up, wiggle your toes and tighten your calves to keep your blood moving Follow Up: It is important for you to keep your follow up appointments with your medical provider. Current Hospital Diet Patient's current hospital diet: AHA Diet (Heart Healthy) Discharge Diet Recommended Diet: AHA Diet (Heart Healthy) Pending Studies Studies pending at discharge: yes List of pending studies: Coag work up pending Medical Emergencies . Who to Call and When: Medical Emergencies: If at any time you feel your situation is an emergency, please call 911 immediately. . Non-Emergent Contact Non-Emergency issues call your: Primary Care Provider Call Non-Emergent contact if: you have any medication questions . . "Provider Documentation" section prepared by Ayana Betancur. VTE Core Measure Inpt VTE Proph given/why not?: Enoxaparin (Lovenox)SQ, Warfarin (Coumadin) [place] Drug Monitoring Program Search Results: no issues identified
[2016-12-07] MEDS ORDERED: XRL15 PO (16:40)
[2016-12-07] MEDS ORDERED: RIVAROXABAN TAB 15 MG TAB PO SCH ×2 (16:45)
[2016-12-07 17:21] VITALS: BP 114/69; PULSE 97; TEMP 36.8; O2SAT 96
[2016-12-08] MEDS ORDERED: RIVAROXABAN TAB 15 MG TAB PO SCH (09:00)
--- NOTE | 2016-12-09 21:14 | Discharge Summary ---
Discharge Summary Admission Date: Dec 06, 2016 at 15:03 Discharge Date: Dec 07, 2016 Discharge Disposition: Home Principal Diagnosis: LLE DVT Secondary Diagnoses/Problems: HTN Asthma Obesity Procedures: CT ANGIOGRAM OF THE CHEST CLINICAL HISTORY: Leg pain. Deep venous thrombosis. COMPARISON STUDY: Chest x-ray dated 05/30/2016. TECHNIQUE: Following the IV administration of 118 cc of Optiray 320, CT angiogram of the chest was performed from the upper abdomen to the thoracic inlet utilizing the pulmonary embolus protocol. Images are reviewed in the axial, sagittal, and coronal planes. 3-D MIPS images are created and assessed. IV contrast was administered without complication. CT DOSE: 581.22 mGy.cm FINDINGS: Thyroid: Imaged portions of the thyroid gland are normal in size and attenuation. Thoracic aorta: There is mild after carotid calcification of the thoracic aorta, which is normal in caliber and demonstrates bovine variant arch anatomy. No dissection is seen. Pulmonary vasculature: The pulmonary trunk is normal in caliber. There are no filling defects identified in main, lobar, or proximal segmental pulmonary branches to suggest pulmonary embolus. Evaluation of the peripheral branches is degraded by motion artifact. Heart: The heart is top normal in size and without pericardial effusion. Lungs and pleural spaces: Evaluation of the lung parenchyma is significantly degraded by expiratory motion artifact. There is no lobar consolidation or pleural effusion. Scarring is noted in the left upper lobe. Trachea and central airways appear clear. Mild diffuse peribronchial thickening is noted. Foci of air trapping are suggested. Mild mucous plugging is noted in the left lower lobe. Mediastinum: There is no mediastinal lymphadenopathy. Ronit: Clear. Axillae: There is no axillary lymphadenopathy. Upper abdomen: There is a small hiatal hernia. Fatty atrophy is noted in the pancreas. Partially visualized upper abdominal viscera is otherwise within normal limits. Skeletal structures: No lytic or blastic bony lesions are seen. IMPRESSION: 1. There is no evidence of pulmonary embolus in the main, lobar, or proximal segmental pulmonary arteries. 2. There is no airspace consolidation or pleural effusion. 3. Mild diffuse peribronchial thickening suggests reactive airway disease. Small foci of mucous plugging are noted in the lower lobes. Clinical correlation will be required. 4. Additional changes as above. Electronically signed by: Henrry Vazquez M.D. 12/06/2016 1:54 PM Dictated Date/Time: 12/06/2016 1:47 PM ULTRASOUND LEFT LOWER EXTREMITY VENOUS CLINICAL HISTORY: Left leg swelling. COMPARISON STUDY: No priors. TECHNIQUE: Real-time, grayscale, and color Doppler sonography of the deep veins of the left lower extremity was performed from the inguinal crease to the calf. Compression and augmentation were utilized. FINDINGS: There is extensive and nearly occlusive deep venous thrombosis seen throughout the left lower extremity, extending from the left common femoral vein to the calf. There is complete thrombosis of the left greater saphenous vein at the junction with the common femoral vein. Thrombus is also seen within the profunda femoris vein. IMPRESSION: Extensive left lower extremity deep venous thrombosis as above. Electronically signed by: Henrry Vazquez M.D. 12/06/2016 12:28 PM Dictated Date/Time: 12/06/2016 12:26 PM Medication Reconciliation New Medications: Rivaroxaban (Xarelto) 15 Mg Tab 15 MG PO BID for 21 Days, #42 Hydrocodone/Acetaminophen 5MG/325MG ([place] 5MG/325MG) Tab 1 TAB PO Q8 PRN for Pain for 7 Days, #21 TAB PRN PAIN Continued Medications: Acetaminophen (Tylenol Extra Strength) 500 Mg Tab 1000 MG PO TID for 21 Days, #126 TAB Albuterol (Proair Hfa) Aers 2 PUFFS INH Q4HR PRN Aspirin (Aspirin EC Low Dose) 81 Mg Ectab 81 MG PO BID for 30 Days Celecoxib (Celebrex) 200 Mg Cap 200 MG PO BID, #60 CAP Fluticasone Propionate (Flovent Hfa 110MCG Inhaler *) Aero 2 PUFFS INH BID PRN for PRN, 0 Refills Levothyroxine Sodium (Synthroid) 50 Mcg Tab 50 MCG PO QAM, TAB Losartan Potassium (Losartan Potassium) 25 Mg Tab 12.5 MG PO QAM Polyethylene Glycol 3350 (Miralax) 1 Pow Pow 17 GM PO PRN, #255 GM Senna (Senna Lax) 8.6 Mg Tab 2 TABS PO HS, #30 Tolterodine Tartrate (Detrol LA) 4 Mg Capcr 1 CAP PO QAM for 90 Days, #90 CAP 3 Refills Venlafaxine Hcl (Venlafaxine Hcl Er) 150 Mg Tab 1 TAB PO QAM for 30 Days, #30 TAB 2 Refills Discontinued Medications: [Otc Sleep Aid] () 1-2 TAB PO HS Admission Information HPI (per Admitting provider): 71 year old female with PMH HTN, obesity, history of MTHFR mutation, OA presents to the Emergency Room with complaints of worsening LLE pain and swelling that started since Saturday. Pt said that today the pain got worst. she said that she cannot walk or stand for a long period of time on the left leg due to the pain. She said that she has been having some night-time sweating over the past few days. she had right knee surgery done last July. She denies any recent travel, long car trip or trauma. She had a Right LE DVT back about 15 to 20 years ago. Denies any chest pain, shortness of breath, fevers, palpitation. 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 There is complete thrombosis of the left greater saphenous vein at the junction with the common femoral vein CTA thorax was negative for PE VS stable, saturated well RA Coag work up pending Case discussed today with vascular for the complete saphenous vein that recommends to treat with anticoagulant. She was started on lovenox 90 mg BID and coumadin 5 mg yesterday Pt said that she would rather try the new anticoagulant agents Will check to see if her insurance will cover for the new agents Continue hydrocodone prn for the pain HTN Continue losartan 12.5 mg daily continue monitor BP ELEVATED DVT mostly reactive due to DVT afebrile WBC trending down Asthma stable continue respiratory treatment Obesity Diet and exrcise DVT px on lovenox/coumadin CODE STATUS DNR Total time spent on discharge = 35 minutes This includes examination of the patient, discharge planning, medication reconciliation, and communication with other providers. Discharge Instructions Discharge Instructions Admission Reason for Admission: Deep Vein Thrombosis Discharge Discharge Diagnosis / Problem: (1) Deep vein thrombosis VTE Date & Time Date of VTE Diagnosis: Dec 06, 2016 Time of VTE Diagnosis: 12:26 Discharge Goals Goal(s): Decrease discomfort, Improve function, Improve disease control Activity Recommendations Activity Limitations: resume your previous activity (as tolerated) . Instructions / Follow-Up Instructions / Follow-Up Please follow up with your primary care provider Dr. Walters on Dec 13 at 10: 50 am you will be starting on Xarelto that is a blood thinner, first dose given before discharge Please monitor for any bleeding, if any bleeding occurs, please seek medical attention Please give patient one tab of Xarelto to take home that she can take in the morning. Medication Instructions: Your condition is typically treated with an anticoagulant. Anticoagulants will thin your blood to help prevent new clots. * You should take her medication exactly as directed. * Never skip a dose. * Never take a double dose. If you miss a dose, take it as soon as you remember. Call your Primary Care doctor if you experience any of the following: * Swelling or Pain in your leg * Sudden, continuous pain deep in a muscle * Pain that worsens when you are active or when you stand still for a long time * Chest Pain * Sudden Shortness of Breath * Rapid or pounding heart beat * Fainting * Dizziness * Cough with blood or bloody sputum * Sweating more than normal * Bruises * Heavy or uncontrolled bleeding * Blood in your urine, stool or vomit * Black or tarry stools Caring for Your Self at Home: * Avoid sitting, standing or lying down for long periods without moving your legs and feet * When traveling by car, stop to get out and move around at least once every 3 hours * On long airplane, train or bus rides, get up and move around when possible * If you can't get up, wiggle your toes and tighten your calves to keep your blood moving Follow Up: It is important for you to keep your follow up appointments with your medical provider. Current Hospital Diet Patient's current hospital diet: AHA Diet (Heart Healthy) Discharge Diet Recommended Diet: AHA Diet (Heart Healthy) Pending Studies Studies pending at discharge: yes List of pending studies: Coag work up pending Medical Emergencies . Who to Call and When: Medical Emergencies: If at any time you feel your situation is an emergency, please call 911 immediately. . Non-Emergent Contact Non-Emergency issues call your: Primary Care Provider Call Non-Emergent contact if: you have any medication questions . . "Provider Documentation" section prepared by Ayana Betancur. VTE Core Measure Inpt VTE Proph given/why not?: Enoxaparin (Lovenox)SQ, Warfarin (Coumadin) [place] Drug Monitoring Program Search Results: no issues identified Additional Copies To Kari Walters D.O.
[2016-12-12 16:35] LABS: ANTITHROMBINIII ACTIVITY** 95 % activity (80-120); B2 GLYCOPROTEIN IGA <9 SAU (<=20); B2 GLYCOPROTEIN IGG <9 SGU (<=20); B2 GLYCOPROTEIN IGM <9 SMU (<=20); LUPUS ANTICOAGULANT** TC36573X Negative (Negative); PROTEIN C ACTIVITY** TC 1777X 125 % (70-180); PROTEIN S ACT(FUNCT)**1779X 87 % (60-140)
[2017-04-23] MEDS ORDERED: DTRSR4 PO (12:14)
[2017-04-23] MEDS ORDERED: VENL150T33 PO (12:14)
[2017-04-23] MEDS ORDERED: POLY335019 PO (12:18)
[2017-04-23] MEDS ORDERED: CZR25 PO (14:33)
[2017-04-23] MEDS ORDERED: LEVO50TA PO (14:33)
== END 2016-12-07 17:51 | disposition home or self-care (01) | DRG 300 ==
LOC: ENRESERVDT → ENRESERVTM → C.EDB 09:10 → C.MS2W 15:03
PROVIDERS: ADMIT Internal Medicine; ATTEND Internal Medicine
DX: I82.412 Acute embolism and thrombosis of left femoral vein (principal); E72.12 Methylenetetrahydrofolate reductase deficiency; I82.492 Acute embolism and thrombosis of other specified deep vein of left lower extremity; I82.4Z2 Acute embolism and thrombosis of unspecified deep veins of left distal lower extremity; I10 Essential (primary) hypertension; J45.909 Unspecified asthma, uncomplicated; E66.9 Obesity, unspecified; Z51.81 Encounter for therapeutic drug level monitoring; Z79.899 Other long term (current) drug therapy; Z79.01 Long term (current) use of anticoagulants; Z79.82 Long term (current) use of aspirin; Z86.718 Personal history of other venous thrombosis and embolism; Z66 Do not resuscitate; Z68.37 Body mass index [BMI] 37.0-37.9, adult

== ENCOUNTER 2017-04-23 18:01 | Emergency (ER) | payer OTHER ==
[~2017-04-23] VITALS: Ht 157.5 cm; Wt 100.0 kg
[~2017-04-23 18:01] MED LIST changes: +CZR25 PO; +DTRSR4 PO; +HYDR-5688 PO; +LEVO50TA PO; -OTC SLEEP AID PO; -OXYSR10 PO; +POLY335019 PO; -RXC5 PO; +VENL150T33 PO; +XRL15 PO
[2017-04-23 18:11] VITALS: TEMP 36.8; Ht 157.5 cm; Wt 100.0 kg
[2017-04-23] MEDS ORDERED: SNG10 PO (18:26)
[2017-04-23] MEDS ORDERED: HYDR-5688 PO (18:26)
[2017-04-23] MEDS ORDERED: FLNIN INH (18:26)
[2017-04-23] MEDS ORDERED: VNTHFA/IN INH (18:26)
[2017-04-23] MEDS ORDERED: PRED10TA PO (18:26)
[2017-04-23] MEDS ORDERED: CALC600T37 PO (18:26)
[2017-04-23] MEDS ORDERED: LIDO/EPINEPHRINE/SOD BICARB 20 ML VIAL INFIL ONE (18:30)
--- NOTE | 2017-04-23 18:31 | EMERGENCY ROOM VISIT NOTE ---
ED Visit Note First contact with patient: 18:15 CHIEF COMPLAINT: Left ankle laceration HISTORY OF PRESENT ILLNESS: This 72-year-old female patient presents to the emergency department by ambulance after cutting the left ankle on a piece of porcelain. The bleeding has stopped. Denies weakness or numbness of the left foot. The patient rates the pain as and 1/10. The patient denies any other injuries. The patient's Tetanus shot is up to date. REVIEW OF SYSTEMS: A 6 system review of systems was completed with positives and pertinent negatives listed in the HPI. ALLERGIES: Jer inhibitors, latex MEDICATIONS: Reviewed with the patient PMH: Hypertension, anxiety, history of DVT SOCIAL HISTORY: She does not smoke, occasionally drinks alcohol. She lives at home by herself. PHYSICAL EXAM: Vital Signs: Reviewed Nurse's notes, vital signs stable. GENERAL : 72-year-old female, in no acute distress, well-developed, well-nourished. SKIN: There is a 1 cm, superficial flap-like laceration noted to the medial aspect of the left ankle. It does not keep apart.. There is no foreign material in the wound and it looks clean. There is some oozing of blood from the wound. No deep structures such as tendons, bones, or significant blood vessels are seen in the base of the wound. EMERGENCY DEPARTMENT COURSE: I examined the patient. Verbal consent was obtained to perform the procedure. Using sterile technique the wound was cleansed with Betadine. The area was sterilely draped. 2 ml of 1% buffered lidocaine with epinephrine was used to anesthetize the laceration on the ankle. Once the patient was anesthetized, the wound was copiously irrigated under pressure with sterile saline. The wound was explored and was as described above. The laceration was repaired using 2 simple interrupted 5-0 nylon sutures with the wound edges being well approximated. The patient tolerated the procedure well. Hemostasis was achieved. The area was cleaned with sterile saline and dressed with bacitracin ointment and bandage. The patient was discharged home in good condition. DIAGNOSIS: Left ankle laceration DISCHARGE INSTRUCTIONS & TREATMENT: Keep wound clean and dry. Please elevate the leg overnight. Keep the dressing in place overnight. Also, apply some cold compresses for 20 minute intervals for the next few hours. You May unbandage it tomorrow. Do not allow any crusting or dried blood to accumulate on sutures. If this occurs, use a 1:1 solution of hydrogen peroxide/water on a Q-tip to clean the wound. Use an antibiotic ointment for 3-4 days, then let wound dry. Suture removal in 10-12 days. Return sooner for any signs of infection (increasing redness, swelling, drainage). Tylenol 500 mg every 6 hrs for pain. Keep covered when in sun until sutures removed then SPF 50 or higher for one year. Vitamin E oil if desired two weeks after suture removal for reduction of scar.
--- NOTE | 2017-04-23 19:00 | EMERGENCY ROOM VISIT NOTE ---
ED Visit Note First contact with patient: 18:15 I did evaluate and examine this patient myself. I did guide management for the patient. I agree with the APC's assessment as discussed. Please see the APC's dictation for further details. She has a laceration to her left ankle which was repaired. Her tetanus is up-to-date.
[2017-04-23 19:13] VITALS: BP 158/98; PULSE 89; O2SAT 96
== END 2017-04-23 19:14 | disposition home or self-care (01) ==
LOC: EDBD 18:01 → C.EDD 18:02
DX: S91.012A Laceration without foreign body, left ankle, initial encounter (principal); W45.8XXA Other foreign body or object entering through skin, initial encounter; I10 Essential (primary) hypertension; F41.9 Anxiety disorder, unspecified

== ENCOUNTER → 2017-08-28 | Outpatient (CLI) | payer OTHER ==
[~2017-08-28] MED LIST changes: -ACET-1138 PO; -ALBU1AER9 INH; -ASPEC81 PO; +CALC600T37 PO; -CLB200 PO; +FLNIN INH; -FLVHFA110 INH; +PRED10TA PO; +SNG10 PO; -SNK PO; +VNTHFA/IN INH; -XRL15 PO
[2017-08-28 17:06] LABS: SYNOVIAL FLUID APPEARANCE CLEAR; SYNOVIAL FLUID COLOR YELLOW
== END | disposition home or self-care (01) ==
LOC: C.LAB 16:06
DX: T84.039A Mechanical loosening of unspecified internal prosthetic joint, initial encounter (principal); Y83.1 Surgical operation with implant of artificial internal device as the cause of abnormal reaction of the patient, or of later complication, without mention of misadventure at the time of the procedure

== ENCOUNTER 2017-11-13 17:44 | Emergency (ER) | payer OTHER ==
[~2017-11-13] VITALS: Ht 157.5 cm; Wt 107.1 kg
[2017-11-13 17:56] VITALS: TEMP 36.7; Ht 157.5 cm; Wt 107.1 kg
--- NOTE | 2017-11-13 18:49 | EMERGENCY ROOM VISIT NOTE ---
History Report prepared by Hira: Samira Loza Under the Supervision of: Dr. Himanshu Zelaya M.D. First contact with patient: 18:43 Chief Complaint: LEG PAIN,LEG INJURY Stated Complaint: PAIN IN LEFT LEG History of Present Illness The patient is a 72 year old female who presents to the Emergency Room with complaints of persistent left leg swelling that began about one week ago. The patient states her leg has been sore and she has been short of breath. She notes that she prescribed Coumadin last summer after being diagnosed with a blood clot. The patient denies any abdominal pain. Source of History: patient Onset: one week Position: leg (left) Quality: other (swelling) Timing: other (persistent) Associated Symptoms: + SOB Review of Systems See HPI for pertinent positives & negatives. A total of 10 systems reviewed and were otherwise negative. Past Medical & Surgical Medical Problems: (1) Arthritis of right knee (2) Left leg DVT Family History Cancer Social History Smoking Status: Never Smoker Alcohol Use: none Drug Use: none Housing Status: lives alone Occupation Status: retired Current/Historical Medications Scheduled Cephalexin Monohydrate (Keflex), 500 MG PO QID Hydrocodone/Acetaminophen 5MG/325MG (Thompson 5MG/325MG), 1 TABLET PO Q8 Levothyroxine Sodium (Synthroid), 50 MCG PO QAM Losartan Potassium (Losartan Potassium), 12.5 MG PO QAM Montelukast Sod (Montelukast Sodium), 10 MG PO DAILY Polyethylene Glycol 3350 (Miralax), 17 GM PO PRN Sulfa/Trimethoprim (Bactrim Ds 800MG/160MG), 1 TAB PO BID Tolterodine Tartrate (Detrol LA), 4 MG PO QAM Venlafaxine Hcl (Venlafaxine Hcl Er), 150 MG PO QAM Scheduled PRN Albuterol Hfa (Ventolin Hfa), 2 PUFFS INH Q6H PRN for SOB/Wheezing Fluticasone Propionate (Fluticasone Propionate), 2 PUFFS INH QAM PRN for SOB/ Wheezing Allergies Coded Allergies: Potato (Verified Allergy, Severe, THROAT SWELLS,EYES ITCHY (RAW POTATOES ONLY), 11/13/17) KOLE Inhibitors (Verified Allergy, Unknown, COUGH, 11/13/17) Adhesives (Verified Allergy, Unknown, HEAVIER SURG TAPE-REDNESS SORE SKIN , 11/13/17) Cat Dander (Verified Allergy, Unknown, ITCHY NOSE, ITCHY EYES,RUNNY NOSE, 11/13/17) Grass (Verified Allergy, Unknown, GRASS,MOLD-ITCHY EYES RUNNY NOSE, ) Latex1 -Allergic Contact Dermititis (Verified Allergy, Unknown, CONTACT DERMATITIS, 11/13/17) Tetanus Toxoid (Verified Allergy, Unknown, SWELLING AT SITE, 11/13/17) Physical Exam Vital Signs Date Time Temp Pulse Resp B/P (MAP) Pulse Ox O2 Delivery O2 Flow Rate FiO2 11/13/17 20:59 96 20 130/82 96 Room Air 11/13/17 19:28 91 11/13/17 19:11 98 11/13/17 18:37 92 154/80 95 Room Air 11/13/17 17:56 36.7 105 18 184/108 95 Room Air Physical Exam GENERAL: Patient is a healthy-appearing well-nourished female HEAD: Normocephalic atraumatic EYES: Ocular movements intact pupils equal and react to light OROPHARYNX mucous membranes are moist no exudates present no erythema or edema present NECK: Supple no nuchal rigidity CHEST: Good equal expansion LUNGS: Clear and equal to auscultation CARDIAC: Normal S1 and S2 ABDOMEN: Soft nontender no guarding BACK: No CVA tenderness EXTREMITIES: Cellulitis to right lower extremity. NEURO: Patient is following commands and answering questions appropriately. Alert and oriented x3 Cranial Nerves 2-12 grossly intact Medical Decision & Procedures ER Provider Diagnostic Interpretation: Radiology results as stated below per my review and radiologist interpretation: CT ANGIOGRAM OF THE CHEST CLINICAL HISTORY: Dyspnea. COMPARISON STUDY: Chest x-ray dated 11/13/2017. Chest CT dated 12/06/2016. TECHNIQUE: Following the IV administration of 89 cc of Optiray 320, CT angiogram of the chest was performed from the upper abdomen to the thoracic inlet utilizing the pulmonary embolus protocol. Images are reviewed in the axial, sagittal, and coronal planes. 3-D MIPS images are created and assessed. IV contrast was administered without complication. A dose lowering technique was utilized adhering to the principles of ALARA. The examination is degraded by motion artifact. CT DOSE: 650.98 mGy.cm FINDINGS: Thyroid: Imaged portions of the thyroid gland are normal in size and attenuation. Thoracic aorta: There is mild atherosclerotic calcification of the thoracic aorta, which is normal in caliber and demonstrates bovine variant arch anatomy. No dissection is seen. Pulmonary vasculature: The pulmonary trunk is normal in caliber. There are no filling defects identified in main, lobar, or segmental pulmonary branches to suggest pulmonary embolus. Heart: The heart is enlarged and without pericardial effusion. Lungs and pleural spaces: Evaluation of the lung parenchyma is degraded by motion artifact. Parenchymal scarring are is identified in the anterior left upper lobe, similar in appearance to previous. No airspace consolidation or pleural effusion is identified. The trachea and central airways are patent. Mediastinum: There is no mediastinal lymphadenopathy. Ronit: Clear. Axillae: There is no axillary lymphadenopathy. Upper abdomen: There is a tiny hiatal hernia. Partially visualized upper abdominal viscera is otherwise within normal limits. Skeletal structures: The skeletal structures are osteopenic. No lytic or blastic bony lesions are seen. IMPRESSION: 1. There is no evidence of pulmonary embolus in the main, lobar, or segmental pulmonary arteries. 2. There is no airspace consolidation or pleural effusion. 3. Cardiomegaly. Electronically signed by: Henrry Vazquez M.D. 11/13/2017 9:08 PM Dictated Date/Time: 11/13/2017 9:02 PM SINGLE VIEW CHEST CLINICAL HISTORY: Atypical chest pain. FINDINGS: An AP, portable, upright chest radiograph is compared to study dated 05/30/2016 and correlated with chest CT dated 12/06/2016. The examination is degraded by portable technique, apical lordotic positioning, and patient rotation. The heart is enlarged. There is pulmonary vascular congestion. No airspace consolidation or large pleural effusion is identified. No pneumothorax is seen. The skeletal structures are osteopenic. The bony thorax is grossly intact. IMPRESSION: Cardiomegaly with mild pulmonary vascular congestion. Electronically signed by: Henrry Vazquez M.D. 11/13/2017 7:09 PM Dictated Date/Time: 11/13/2017 7:06 PM ULTRASOUND LEFT LOWER EXTREMITY VENOUS CLINICAL HISTORY: Left leg swelling. COMPARISON STUDY: Left lower extremity venous ultrasound dated 12/06/2016. TECHNIQUE: Real-time, grayscale, and color Doppler sonography of the deep veins of the left lower extremity was performed from the inguinal crease to the calf. Compression and augmentation were utilized. FINDINGS: There is no sonographic evidence of deep venous thrombosis identified in the left lower extremity. The common femoral, superficial femoral, and popliteal veins are patent and normally compressible. The greater saphenous vein and the profunda femoris vein at the junction with the common femoral vein are clear. Reversal of flow is noted in the greater saphenous vein. The visualized calf veins are patent. IMPRESSION: There is no sonographic evidence of deep venous thrombosis identified in the left lower extremity. Electronically signed by: Henrry Vazquez M.D. 11/13/2017 8:37 PM Dictated Date/Time: 11/13/2017 8:36 PM Laboratory Results 11/13/17 18:55 Red Blood Count 4.47, Mean Corpuscular Volume 82.6, Mean Corpuscular Hemoglobin 27.5, Mean Corpuscular Hemoglobin Concent 33.3, Mean Platelet Volume 10.9, Neutrophils (%) (Auto) 59.1, Lymphocytes (%) (Auto) 27.8, Monocytes (%) (Auto) 10.0, Eosinophils (%) (Auto) 2.1, Basophils (%) (Auto) 0.7, Neutrophils # (Auto ) 4.48, Lymphocytes # (Auto) 2.11, Monocytes # (Auto) 0.76, Eosinophils # (Auto ) 0.16, Basophils # (Auto) 0.05 11/13/17 18:55 Test 11/13/17 18:55 11/13/17 19:02 11/13/17 19:06 White Blood Count 7.58 K/uL (4.8-10.8) Red Blood Count 4.47 M/uL (4.2-5.4) Hemoglobin 12.3 g/dL (12.0-16.0) Hematocrit 36.9 % (37-47) Mean Corpuscular Volume 82.6 fL (80-100) Mean Corpuscular Hemoglobin 27.5 pg (25-34) Mean Corpuscular Hemoglobin Concent 33.3 g/dl (32-36) Platelet Count 261 K/uL (130-400) Mean Platelet Volume 10.9 fL (7.4-10.4) Neutrophils (%) (Auto) 59.1 % Lymphocytes (%) (Auto) 27.8 % Monocytes (%) (Auto) 10.0 % Eosinophils (%) (Auto) 2.1 % Basophils (%) (Auto) 0.7 % Neutrophils # (Auto) 4.48 K/uL (1.4-6.5) Lymphocytes # (Auto) 2.11 K/uL (1.2-3.4) Monocytes # (Auto) 0.76 K/uL (0.11-0.59) Eosinophils # (Auto) 0.16 K/uL (0-0.5) Basophils # (Auto) 0.05 K/uL (0-0.2) RDW Standard Deviation 44.8 fL (36.4-46.3) RDW Coefficient of Variation 14.9 % (11.5-14.5) Immature Granulocyte % (Auto) 0.3 % Immature Granulocyte # (Auto) 0.02 K/uL (0.00-0.02) Est Creatinine Clear Calc Drug Dose 63.9 ml/min Estimated GFR () 71.7 Estimated GFR (Non- 61.8 BUN/Creatinine Ratio 16.9 (10-20) Calcium Level 8.7 mg/dl (8.5-10.1) Total Bilirubin 0.3 mg/dl (0.2-1) Direct Bilirubin < 0.1 mg/dl (0-0.2) Aspartate Amino Transf (AST/SGOT) 19 U/L (15-37) Alanine Aminotransferase (ALT/SGPT) 22 U/L (12-78) Alkaline Phosphatase 81 U/L (45-117) Total Creatine Kinase 42 U/L (26-192) Creatine Kinase MB 1.1 ng/ml (0.5-3.6) Creatine Kinase MB Ratio 2.6 (0-3.0) Troponin I < 0.015 ng/ml (0-0.045) Total Protein 7.0 gm/dl (6.4-8.2) Albumin 3.4 gm/dl (3.4-5.0) Lipase 137 U/L (73-393) Bedside D-Dimer > 450 ng/mlFEU (0-450) Bedside Hemoglobin 11.6 g/dl (12.0-16.0) Bedside Hematocrit 34 % (37-47) Bedside Sodium 143 mEq/L (135-144) Bedside Potassium 3.6 mEq/L (3.3-5.0) Bedside Chloride 107 mEq/L (101-112) Bedside Total CO2 24 mEq/l (24-31) Anion Gap 16.0 mmol/L (16-25) Bedside Blood Urea Nitrogen 16 mg/dl (7-18) Bedside Creatinine 0.8 mg/dl (0.6-1.3) Bedside Glucose (other) 120 mg/dl (70-99) Bedside Ionized Calcium (Rosario) 1.16 mmol/l (1.12-1.32) Labs reviewed by ED physician. Medications Administered Medications (Trade) Dose Ordered Sig/Anna Route Start Time Stop Time Status Last Admin Dose Admin Ceftriaxone Sodium (Rocephin Inj) 1 gm NOW STAT IV 11/13/17 20:48 11/13/17 20:50 DC 11/13/17 21:09 1 GM Trimethoprim/ Sulfamethoxazole (Septra Ds 800/ 160MG Tab) 1 tab NOW STAT PO 11/13/17 20:48 11/13/17 20:50 DC 11/13/17 21:09 1 TAB ECG Indication: other (leg swelling) Rate (beats per minute): 81 Rhythm: sinus rhythm Findings: no acute ischemic change, no ectopy Change: Patient's Electrocardiogram interpreted by me. ED Course 1845: Past medical records reviewed. The patient was evaluated in room B11. A complete history and physical examination was performed. 1944: Ordered Ioversol 100ml IV. 2047: Ordered Rocephin Inj 1gm IV and Septra Ds 800/160m Tab 1 tab PO. 2122: Upon reexamination the patient is feeling significantly better. I discussed results and treatment plan with the patient. She verbalizes agreement and understanding. The patient is ready for discharge. Medical Decision Differential diagnosis: Etiologies such as cellulitis, abscess, MRSA infection, DVT, necrotizing fasciitis, dermatitis, drug eruption, as well as others were entertained. This is a 72-year-old female presents emergency department complaining of left lower extremities swelling. Patient does have history of DVT therefore laboratory work was drawn. Patient does have an elevation in her d-dimer. In addition the patient was sent for an ultrasound of her left lower extremity as well as CT of her chest that she is complaining of shortness of breath. Both tests are negative for PE or DVT. Based on this finding I feel the patient can be started on Rocephin and Bactrim however I stressed the need for repeat ultrasound in 1 week if she is any drinking or pain going up her leg move the patient was in agreement with treatment plan. She was also given compression stockings to wear. Medication Reconcilliation Current Medication List: was personally reviewed by me Blood Pressure Screening Patient's blood pressure: Normal blood pressure Impression Primary Impression: Cellulitis Scribe Attestation The scribe's documentation has been prepared under my direction and personally reviewed by me in its entirety. I confirm that the note above accurately reflects all work, treatment, procedures, and medical decision making performed by me. Departure Information Dispostion Home / Self-Care Prescriptions Sulfa/Trimethoprim (Bactrim Ds 800MG/160MG) Tab 1 TAB PO BID for 10 Days, #20 TAB Prov: Himanshu Zelaya MD 11/13/17 Cephalexin Monohydrate (KEFLEX) 500 Mg Cap 500 MG PO QID for 10 Days, #40 CAP Prov: Himanshu Zelaya MD 11/13/17 Referrals No Doctor, Assigned (PCP) Forms HOME CARE DOCUMENTATION FORM, IMPORTANT VISIT INFORMATION Patient Instructions My [facility] Additional Instructions Return if you develop streaking, fevers, chills or pain worsens for repeat U/S You have been examined and treated today on an emergency basis only. This is not a substitute for, or an effort to provide, complete comprehensive medical care. It is impossible to recognize and treat all injuries or illnesses in a single emergency department visit. It is therefore important that you follow up closely with DR Walters. Call as soon as possible for an appointment. Thank you for your time and consideration. I look forward to speaking with you again soon. Please don't hesitate to call us if you have any questions. Problem Qualifiers Primary Impression: Cellulitis Site of cellulitis: extremity Site of cellulitis of extremity: lower extremity Laterality: unspecified laterality Qualified Codes: L03.119 - Cellulitis of unspecified part of limb
[2017-11-13 19:08] LABS: BASO % 0.7 %; BASO ABS # 0.05 K/uL (0-0.2); EOS % 2.1 %; EOS ABS # 0.16 K/uL (0-0.5); HEMATOCRIT 36.9 % (37-47); HEMOGLOBIN 12.3 g/dL (12.0-16.0); IG# 0.02 K/uL (0.00-0.02); LYMPH % 27.8 %; LYMPH ABS # 2.11 K/uL (1.2-3.4); MEAN CELL VOLUME 82.6 fL (80-100); MEAN CORPUSCULAR HEMOGLOBIN 27.5 pg (25-34); MEAN CORPUSCULAR HGB CONC 33.3 g/dl (32-36); MEAN PLATELET VOLUME 10.9 fL (7.4-10.4); MONO ABS # 0.76 K/uL (0.11-0.59); NEUT % 59.1 %; NEUT ABS # 4.48 K/uL (1.4-6.5); PLATELET COUNT 261 K/uL (130-400); RED CELL DISTRIBUTION WIDTH CV 14.9 % (11.5-14.5); RED CELL DISTRIBUTION WIDTH SD 44.8 fL (36.4-46.3); WHITE BLOOD COUNT 7.58 K/uL (4.8-10.8)
[2017-11-13 19:11] VITALS: O2SAT 98
--- NOTE | 2017-11-13 19:11 | DIAGNOSTIC IMAGING REPORT ---
SINGLE VIEW CHEST CLINICAL HISTORY: Atypical chest pain. FINDINGS: An AP, portable, upright chest radiograph is compared to study dated 05/30/2016 and correlated with chest CT dated 12/06/2016. The examination is degraded by portable technique, apical lordotic positioning, and patient rotation. The heart is enlarged. There is pulmonary vascular congestion. No airspace consolidation or large pleural effusion is identified. No pneumothorax is seen. The skeletal structures are osteopenic. The bony thorax is grossly intact. IMPRESSION: Cardiomegaly with mild pulmonary vascular congestion. Electronically signed by: Henrry Vazquez M.D. 11/13/2017 7:09 PM Dictated Date/Time: 11/13/2017 7:06 PM
[2017-11-13 19:18] LABS: ISTAT CREATININE 0.8 mg/dl (0.6-1.3); ISTAT IONIZED CALCIUM 1.16 mmol/l (1.12-1.32); ISTAT POTASSIUM 3.6 mEq/L (3.3-5.0)
[2017-11-13 19:27] LABS: ALBUMIN 3.4 gm/dl (3.4-5.0); ALT/SGPT 22 U/L (12-78); AST/SGOT 19 U/L (15-37); BLOOD UREA NITROGEN 16 mg/dl (7-18); CALCIUM 8.7 mg/dl (8.5-10.1); CARBON DIOXIDE 24 mmol/L (21-32); CREATININE 0.93 mg/dl (0.60-1.20); GLUCOSE 115 mg/dl (70-99); LIPASE 137 U/L (73-393); POTASSIUM 3.5 mmol/L (3.5-5.1); SODIUM 141 mmol/L (136-145)
[2017-11-13 19:32] LABS: ALKALINE PHOSPHATASE 81 U/L (45-117); CKMB 1.1 ng/ml (0.5-3.6)
[2017-11-13] MEDS ORDERED: OPTIRAY 320 IV PRN (19:45)
--- NOTE | 2017-11-13 20:39 | DIAGNOSTIC IMAGING REPORT ---
ULTRASOUND LEFT LOWER EXTREMITY VENOUS CLINICAL HISTORY: Left leg swelling. COMPARISON STUDY: Left lower extremity venous ultrasound dated 12/06/2016. TECHNIQUE: Real-time, grayscale, and color Doppler sonography of the deep veins of the left lower extremity was performed from the inguinal crease to the calf. Compression and augmentation were utilized. FINDINGS: There is no sonographic evidence of deep venous thrombosis identified in the left lower extremity. The common femoral, superficial femoral, and popliteal veins are patent and normally compressible. The greater saphenous vein and the profunda femoris vein at the junction with the common femoral vein are clear. Reversal of flow is noted in the greater saphenous vein. The visualized calf veins are patent. IMPRESSION: There is no sonographic evidence of deep venous thrombosis identified in the left lower extremity. Electronically signed by: Henrry Vazquez M.D. 11/13/2017 8:37 PM Dictated Date/Time: 11/13/2017 8:36 PM
[2017-11-13] MEDS ORDERED: SULFAMETHOXAZOLE/TRIMETHOPRIM DS 800/160MG TAB PO STA (20:48)
[2017-11-13] MEDS ORDERED: CEFTRIAXONE SOD INJ 1 GM ADDVIAL IV STA (20:48)
[2017-11-13 20:59] VITALS: BP 130/82; PULSE 96; O2SAT 96
--- NOTE | 2017-11-13 21:10 | DIAGNOSTIC IMAGING REPORT ---
CT ANGIOGRAM OF THE CHEST CLINICAL HISTORY: Dyspnea. COMPARISON STUDY: Chest x-ray dated 11/13/2017. Chest CT dated 12/06/2016. TECHNIQUE: Following the IV administration of 89 cc of Optiray 320, CT angiogram of the chest was performed from the upper abdomen to the thoracic inlet utilizing the pulmonary embolus protocol. Images are reviewed in the axial, sagittal, and coronal planes. 3-D MIPS images are created and assessed. IV contrast was administered without complication. A dose lowering technique was utilized adhering to the principles of ALARA. The examination is degraded by motion artifact. CT DOSE: 650.98 mGy.cm FINDINGS: Thyroid: Imaged portions of the thyroid gland are normal in size and attenuation. Thoracic aorta: There is mild atherosclerotic calcification of the thoracic aorta, which is normal in caliber and demonstrates bovine variant arch anatomy. No dissection is seen. Pulmonary vasculature: The pulmonary trunk is normal in caliber. There are no filling defects identified in main, lobar, or segmental pulmonary branches to suggest pulmonary embolus. Heart: The heart is enlarged and without pericardial effusion. Lungs and pleural spaces: Evaluation of the lung parenchyma is degraded by motion artifact. Parenchymal scarring are is identified in the anterior left upper lobe, similar in appearance to previous. No airspace consolidation or pleural effusion is identified. The trachea and central airways are patent. Mediastinum: There is no mediastinal lymphadenopathy. Ronit: Clear. Axillae: There is no axillary lymphadenopathy. Upper abdomen: There is a tiny hiatal hernia. Partially visualized upper abdominal viscera is otherwise within normal limits. Skeletal structures: The skeletal structures are osteopenic. No lytic or blastic bony lesions are seen. IMPRESSION: 1. There is no evidence of pulmonary embolus in the main, lobar, or segmental pulmonary arteries. 2. There is no airspace consolidation or pleural effusion. 3. Cardiomegaly. Electronically signed by: Henrry Vazquez M.D. 11/13/2017 9:08 PM Dictated Date/Time: 11/13/2017 9:02 PM
[2017-11-13] MEDS ORDERED: CEPH500C2 PO (21:24)
[2017-11-13] MEDS ORDERED: SULF800T23 PO (21:24)
== END 2017-11-13 21:36 | disposition home or self-care (01) ==
LOC: C.EDB 17:45
DX: L03.115 Cellulitis of right lower limb (principal); M17.11 Unilateral primary osteoarthritis, right knee; Z79.01 Long term (current) use of anticoagulants; Z86.718 Personal history of other venous thrombosis and embolism

== ENCOUNTER → 2018-01-15 | Day surgery (SDC) | payer OTHER ==
[2018-01-08 09:15] VITALS: Ht 157.5 cm; Wt 104.5 kg
[~2018-01-15] VITALS: Ht 157.5 cm; Wt 104.5 kg
[~2018-01-15] MED LIST changes: +500ML BSS 0.3ML EPI 1:1000PF IRRIG ONE; +ACETAMINOPHEN 325 MG TAB PO PRN; +AMVISC PLUS 0.8ML SYRINGE INT OCU ONE; +ATROPINE SULFATE 0.1 MG/ML 5ML SYR IV PRN; +BSS FLUSH ONE; -CALC600T37 PO; +ENDOCOAT 0.85ML SYRINGE INT OCU ONE; +EpHEDrine SULFATE INJ 50 MG/ML AMP IV PRN; +EpINEphrine INJ 1MG/ML AMP 1 MG/ML AMP ONE; +LACTATED RINGER'S 1000ML 500 ML IV SCH; +LIDOCAINE 4% OP SOLN DROP CHARGE ONE; +LIDOCAINE 4% OP SOLN DROP CHARGE OPR SCH; +LIDOCAINE HCL 1% MPF 2 ML VIAL ONE; +MIDAZOLAM HCL 1 MG/ML 2ML VIAL ONE; +MIX: 4ML BSS 1ML EPI 1:1000 PF TOP ONE; +MOXIFLOXACIN OPH SOLN PER DROP CHARGE ONE; +POVIDONE-IODINE OP SOLN 30 ML BTL ONE; -PRED10TA PO; +PROPARACAINE 0.5% OP SOLN PER DROP CHARGE OPR SCH; +TOBRAMYCIN/DEXAMETHASONE OPH OINT PER APPLN CHARGE ONE
--- NOTE | 2018-01-15 06:35 | History & Physical Bridge - SC ---
H&P Re-Evaluation Bridge Note: I have examined the patient, reviewed the History & Physical and in the interval since the performance of the History & Physical I have noted the following changes of clinical significance: No changes noted
[2018-01-15] MEDS: PHENYLEPHRINE HCL 2.5% OP SOLN PER DROP CHARGE OPR SCH ×3 (06:39→06:49)
[2018-01-15] MEDS: TROPICAMIDE 1% OP SOLN PER DROP CHARGE OPR SCH ×3 (06:40→06:50)
[2018-01-15] MEDS: CYCLOPENTOLATE HCL 1% OP SOLN PER DROP CHARGE OPR SCH ×3 (06:41→06:51)
[2018-01-15] MEDS: MOXIFLOXACIN OPH SOLN PER DROP CHARGE OPR SCH ×3 (06:42→06:52)
--- NOTE | 2018-01-15 07:21 | [facility] Post Operative Brief Note ---
Immediate Operative Summary Operative Date Jan 15, 2018. Pre-Operative Diagnosis Right Eye Cataract Post-Operative Diagnosis same Procedure(s) Performed Right Cataract Phacoemulsification With Intraocular Lens Implant Surgeon Dr. Inessa Chavez Apple Picker Surgeon(s) 0 Estimated Blood Loss 0 Findings Consistent with Post-Op Diagnosis Specimens none Anesthesia Type MAC Complication(s) none Disposition Accompanied Pt To Recovery: no Disposition:
--- NOTE | 2018-01-15 07:22 | [facility] Operative Report ---
Operative Report Date of Service Jan 15, 2018. Operative Report DATE OF OPERATION: 01/15/18 PREOPERATIVE DIAGNOSIS: Senile nuclear cataract, right eye POSTOPERATIVE DIAGNOSIS: Senile nuclear cataract, right eye PROCEDURE PERFORMED: Phacoemulsification with intraocular lens implantation, right eye SURGEON: Dr. Mateusz Chavez ANESTHESIA: Topical with 1% intracameral lidocaine and monitored anesthesia care COMPLICATIONS: None DESCRIPTION OF PROCEDURE: After positively identifying the patient both verbally and by wristband in the preoperative area, the right eye was marked as the operative eye. The patient was then brought back to the operating room by the anesthesia and nursing staff where they were given a drop of Lidocaine and betadine into the operative eye. They were then sterilely prepped and draped in the standard fashion typical for ophthalmic surgery. Steri-strips were placed along the upper eyelids to keep the lashes back, and a lid speculum was placed into the operative eye. At this point, a documented time out was performed with members of the ophthalmology, nursing, and anesthesia staffs all agreeing upon the correct patient, correct location for surgery, correct procedure, and correct type and power of intraocular lens to be implanted. The microscope was then swung into position. First, a paracentesis wound was made using a sideport blade. Then, in sequence, 1% preservative-free lidocaine followed by Endocoat viscoelastic was injected into the anterior chamber. Next , the main incision was made with a keratome blade in triplanar fashion. A sharp cystotome was introduced into the eye and used to create a tear in the anterior capsule, which was directed into a continuous curvilinear capsulorrhexis using Utrata forceps. Hydrodissection was then performed with BSS on a flat-tip cannula. Next, the phacoemulsification handpiece was introduced into the eye and used to remove the nucleus in a [id number] fashion. This was done without complication and then the irrigation-aspiration handpiece was introduced into the eye and used to remove all remaining cortical and epinuclear material. Amvisc was then injected into the anterior chamber as well as into the capsular bag and using the lens injector system, an MX60 19.5 D lens, serial number [id number], and expiration date 05/2020 was injected into the capsular bag and rotated into the correct position. Next, the irrigation- aspiration handpiece was used to remove all remaining Amvisc. BSS was used to hydrate the main wound, and then BSS was injected into the paracentesis site to reach physiologic pressure and then the main wound was checked and found to be watertight. The patient was given drops of Vigamox and Tobradex ointment into the operative eye, and then the surrounding area was cleaned and dried. A clear plastic shield was placed over the eye and the patient was then sat up and taken from the operating room by the anesthesia staff having tolerated the procedure well and suffering no complications. DISPOSITION: The patient was returned to the recovery room in stable condition. I attest to the content of the Intraoperative Record and any orders documented therein. Any exceptions are noted below.
[2018-01-15 07:23] VITALS: TEMP 36.8
--- NOTE | 2018-01-15 07:23 | Discharge Instructions-SurgCtr ---
Discharge Instructions Date of Service Jan 15, 2018. Visit Reason for Visit: Cataract Right Eye Discharge Discharge Diagnosis / Problem: right cataract Discharge Goals Goal(s): Decrease discomfort, Improve function Activity Recommendations Activity Limitations: as noted below Anesthesia . Post Anesthesia Instructions: If you have had General Anesthesia or IV Sedation: * Do not drive today. * Resume driving when surgeon permits. * Do not make important decisions or sign legal documents today. * Call surgeon for: 1. Temperature elevations greater than 101 degrees F. 2. Uncontrollable pain. 3. Excessive bleeding. 4. Persistent nausea and vomiting. 5. Medication intolerance (nausea, vomiting or rash). * For nausea and vomiting use only clear liquids such as: tea, soda, bouillon until nausea subsides, then gradually increase diet as tolerated. * If you have any concerns or questions, call your surgeon's office. If physician is unavailable and it is an emergency, call 911 or go to the nearest emergency room. . Instructions / Follow-Up Instructions / Follow-Up ACTIVITY RECOMMENDATIONS: * Light activities. * You may walk outside, read, watch television. * You may notice redness on the white part of the eye and some blurry vision - this is normal. MEDICATIONS: Resume previous medications unless instructed otherwise by your surgeon. Start all eye drops at 9:30 am today: * Eye drops (today): Prednisone - one drop in operative eye every 2 hours while awake Ofloxacin - one drop in operative eye every 2 hours while awake Ketorolac - one drop in operative eye 4 times daily SPECIAL CARE INSTRUCTIONS: * Tape plastic shield over eye to sleep at night. Call your doctor at with any concerns or problems. FOLLOW UP VISIT: Follow-up with Dr Chavez at [facility] as scheduled. Diet Recommendations Home Diet: no limitations Procedures Procedures Performed: Right Cataract Phacoemulsification With Intraocular Lens Implant Pending Studies Studies pending at discharge: no Medical Emergencies . Who to Call and When: Medical Emergencies: If at any time you feel your situation is an emergency, please call 911 immediately. . Non-Emergent Contact Non-Emergency issues call your: Surgeon . . "Provider Documentation" section prepared by aMteusz Chavez. .
--- NOTE | 2018-01-15 07:33 | Anesthesia Progress Nt - [facility] ---
Anesthesia Post Op Note Date & Time Jan 15, 2018 at 07:33 Vital Signs Pain Intensity: 0 Vital Signs Past 12 Hours Date Time Temp Pulse Resp B/P (MAP) Pulse Ox O2 Delivery O2 Flow Rate FiO2 01/15/18 07:23 36.8 71 16 139/86 (103) 96 Room Air 01/15/18 06:34 36.8 89 16 151/55 (87) 95 Room Air Notes Mental Status: alert / awake / arousable, participated in evaluation Pt Amnestic to Procedure: Yes Nausea / Vomiting: adequately controlled Pain: adequately controlled Airway Patency, RR, SpO2: stable & adequate BP & HR: stable & adequate Hydration State: stable & adequate Anesthetic Complications: no major complications apparent
[2018-01-15 07:43] VITALS: BP 147/88; PULSE 86; O2SAT 97
== END | disposition home or self-care (01) ==
LOC: X.SURG 06:07
PROVIDERS: ATTEND Ophthalmology
DX: H25.11 Age-related nuclear cataract, right eye (principal); I10 Essential (primary) hypertension; J45.909 Unspecified asthma, uncomplicated; Z86.718 Personal history of other venous thrombosis and embolism; Z85.3 Personal history of malignant neoplasm of breast

== ENCOUNTER → 2018-01-23 | Outpatient (CLI) | payer OTHER ==
[~2018-01-23] MED LIST changes: -500ML BSS 0.3ML EPI 1:1000PF IRRIG ONE; -ACETAMINOPHEN 325 MG TAB PO PRN; -AMVISC PLUS 0.8ML SYRINGE INT OCU ONE; -ATROPINE SULFATE 0.1 MG/ML 5ML SYR IV PRN; -BSS FLUSH ONE; -ENDOCOAT 0.85ML SYRINGE INT OCU ONE; -EpHEDrine SULFATE INJ 50 MG/ML AMP IV PRN; -EpINEphrine INJ 1MG/ML AMP 1 MG/ML AMP ONE; +GADAVIST IV PRN; -LACTATED RINGER'S 1000ML 500 ML IV SCH; -LIDOCAINE 4% OP SOLN DROP CHARGE ONE; -LIDOCAINE 4% OP SOLN DROP CHARGE OPR SCH; -LIDOCAINE HCL 1% MPF 2 ML VIAL ONE; -MIDAZOLAM HCL 1 MG/ML 2ML VIAL ONE; -MIX: 4ML BSS 1ML EPI 1:1000 PF TOP ONE; -MOXIFLOXACIN OPH SOLN PER DROP CHARGE ONE; -POVIDONE-IODINE OP SOLN 30 ML BTL ONE; -PROPARACAINE 0.5% OP SOLN PER DROP CHARGE OPR SCH; -TOBRAMYCIN/DEXAMETHASONE OPH OINT PER APPLN CHARGE ONE; +TROS1CAP2 PO
--- NOTE | 2018-01-23 18:52 | DIAGNOSTIC IMAGING REPORT ---
MRI OF THE LUMBAR SPINE COMBO CLINICAL HISTORY: Chronic low back pain. Bilateral leg pain. COMPARISON STUDY: No priors. TECHNIQUE: MRI of the lumbar spine is performed utilizing various T1 and T2-weighted sequences in the axial and sagittal planes. Contrast-enhanced sequences are acquired following the IV administration of 10.5 cc of Gadavist. The examination is compromised by large body habitus, motion artifact, and susceptibility artifact from metallic orthopedic spinal hardware. FINDINGS: Lumbar spine: Vertebral body height and alignment are maintained throughout the lumbar spine. Anterior osteophytes are seen throughout. There are extensive postoperative changes from laminectomy and posterior fusion seen from L2 through S1. Interpedicular screws are present at all levels. The transverse processes are grossly intact. Chronic degenerative endplate change is seen at T12-L1. Significant endplate edema is noted at L1-L2. No destructive bony lesion is suggested. Intervertebral discs: Degenerative disc desiccation is seen throughout the lumbar spine. There is advanced loss of height at all levels from L1-L2 through L5-S1. Spinal cord: The visualized spinal cord is normal in morphology and signal intensity. The conus medullaris terminates at the L1-L2 interspace. The nerve roots of the cauda equina are normal in morphology. No abnormal enhancement is identified on the postcontrast sequences. T12-L1: This is only seen on the sagittal sequence. There is a small posterior disc bulge with annular fissure. There is no significant acquired compromise of the central canal. L1-L2: There is a small posterior disc osteophyte complex. There is no significant acquired compromise of the central canal. This causes bilateral subarticular stenosis. The disc bulge may abut the transiting bilateral nerve roots. The neural foramina appear patent. Facet arthropathy is of no consequence. L2-L3: There is a small posterior disc bulge with annular fissure. There is no significant acquired compromise of the central canal. Bilateral subarticular stenosis is observed. The disc bulge may abut the transiting bilateral nerve roots. L3-L4: The central canal and neural foramina are grossly patent. L4-L5: The central canal and neural foramina are grossly patent. L5-S1: A left lateral disc bulge is suggested. This causes subarticular stenosis and impinges on the exiting left L5 nerve root. The central canal and neural foramina are grossly clear. Sacrum: The visualized sacrum is normal in morphology and signal intensity. Soft tissues: There is diffuse fatty atrophy of the paraspinous musculature. There is a simple appearing fluid collection identified within the dorsal subcutaneous soft tissues at the operative levels. This measures approximately 11 x 1.5 x 1.0 cm and likely represent a chronic seroma. This does not approach the central canal. An additional small fluid collection is seen posterior to the thecal sac at L4-L5. This measures 2.9 x 1.1 x 2.3 cm and also likely represents a seroma. There is no associated mass effect on the thecal sac. Bilateral renal cysts are noted. The largest on the right measures 6.6 cm only seen on the tube buffer sequence. IMPRESSION: 1. The examination is compromised by motion artifact, large body habitus, and susceptibility artifact from extensive metallic spinal hardware. 2. There is no large disc herniation or significant acquired compromise of the central canal. 3. Spondylotic change as above. See discussion for detailed level by level analysis. 4. There is a large simple appearing dorsal subcutaneous fluid collection deep to the incision site, likely representing a large seroma. 5. An additional small simple appearing fluid collection is seen posterior to the thecal sac at L4-L5. This also likely represents a small seroma, there is no associated mass effect on the posterior thecal sac. 6. Significant degenerative endplate edema is seen at L1-L2. Dictated: 01/23/2018 6:08 PM Transcribed: 01/23/2018 6:51 PM [facility] Electronically signed by: Henrry Vazquez M.D. 01/24/2018 7:16 AM Dictated Date/Time: 01/23/2018 6:08 PM
== END | disposition home or self-care (01) ==
LOC: C.MRI 16:55
PROVIDERS: ATTEND Orthopaedic Surgery Orthopaedic Surgery of the Spine
DX: M54.5 Low back pain (principal); R60.0 Localized edema

== ENCOUNTER → 2018-01-29 | Day surgery (SDC) | payer OTHER ==
[2018-01-27 15:39] VITALS: Ht 157.5 cm; Wt 104.5 kg
[~2018-01-29] VITALS: Ht 157.5 cm; Wt 104.5 kg
[~2018-01-29] MED LIST changes: +500ML BSS 0.3ML EPI 1:1000PF IRRIG ONE; +ACETAMINOPHEN 325 MG TAB PO PRN; +AMVISC PLUS 0.8ML SYRINGE INT OCU ONE; +ATROPINE SULFATE 0.1 MG/ML 5ML SYR IV PRN; +BSS FLUSH ONE; -DTRSR4 PO; +ENDOCOAT 0.85ML SYRINGE INT OCU ONE; +EpHEDrine SULFATE INJ 50 MG/ML AMP IV PRN; +EpINEphrine INJ 1MG/ML AMP 1 MG/ML AMP ONE; -GADAVIST IV PRN; +LACTATED RINGER'S 1000ML 500 ML IV SCH; +LIDOCAINE 4% OP SOLN DROP CHARGE ONE; +LIDOCAINE 4% OP SOLN DROP CHARGE OPL SCH; +LIDOCAINE HCL 1% MPF 2 ML VIAL ONE; +MIDAZOLAM HCL 1 MG/ML 2ML VIAL ONE; +MIX: 4ML BSS 1ML EPI 1:1000 PF TOP ONE; +MOXIFLOXACIN OPH SOLN PER DROP CHARGE ONE; +POVIDONE-IODINE OP SOLN 30 ML BTL ONE; +PROPARACAINE 0.5% OP SOLN PER DROP CHARGE OPL SCH; +TOBRAMYCIN/DEXAMETHASONE OPH OINT PER APPLN CHARGE ONE
[2018-01-29] MEDS: PHENYLEPHRINE HCL 2.5% OP SOLN PER DROP CHARGE OPL SCH ×3 (06:42→06:51)
[2018-01-29] MEDS: TROPICAMIDE 1% OP SOLN PER DROP CHARGE OPL SCH ×3 (06:43→06:53)
[2018-01-29] MEDS: CYCLOPENTOLATE HCL 1% OP SOLN PER DROP CHARGE OPL SCH ×3 (06:44→06:54)
[2018-01-29] MEDS: MOXIFLOXACIN OPH SOLN PER DROP CHARGE OPL SCH ×3 (06:45→06:55)
--- NOTE | 2018-01-29 07:57 | [facility] Post Operative Brief Note ---
Immediate Operative Summary Operative Date Jan 29, 2018. Pre-Operative Diagnosis Left Eye Cataract Post-Operative Diagnosis Same Procedure(s) Performed Left Cataract Phacoemulsification With Intraocular Lens Implant Surgeon Dr. Inessa Chavez Electromechanic Surgeon(s) None Estimated Blood Loss 0 Findings Consistent with Post-Op Diagnosis Specimens None Anesthesia Type MAC Complication(s) none Disposition Accompanied Pt To Recovery: no Disposition:
--- NOTE | 2018-01-29 07:58 | [facility] Operative Report ---
Operative Report Date of Service Jan 29, 2018. Operative Report DATE OF OPERATION: 01/29/18 PREOPERATIVE DIAGNOSIS: Senile nuclear cataract, left eye POSTOPERATIVE DIAGNOSIS: Senile nuclear cataract, left eye PROCEDURE PERFORMED: Phacoemulsification with intraocular lens implantation, left eye SURGEON: Dr. Mateusz Chavez ANESTHESIA: Topical with 1% intracameral lidocaine and monitored anesthesia care COMPLICATIONS: None DESCRIPTION OF PROCEDURE: After positively identifying the patient both verbally and by wristband in the preoperative area, the left eye was marked as the operative eye. The patient was then brought back to the operating room by the anesthesia and nursing staff where they were given a drop of Lidocaine and betadine into the operative eye. They were then sterilely prepped and draped in the standard fashion typical for ophthalmic surgery. Steri-strips were placed along the upper eyelids to keep the lashes back, and a lid speculum was placed into the operative eye. At this point, a documented time out was performed with members of the ophthalmology, nursing, and anesthesia staffs all agreeing upon the correct patient, correct location for surgery, correct procedure, and correct type and power of intraocular lens to be implanted. The microscope was then swung into position. First, a paracentesis wound was made using a sideport blade. Then, in sequence, 1% preservative-free lidocaine followed by Endocoat viscoelastic was injected into the anterior chamber. Next , the main incision was made with a keratome blade in triplanar fashion. A sharp cystotome was introduced into the eye and used to create a tear in the anterior capsule, which was directed into a continuous curvilinear capsulorrhexis using Utrata forceps. Hydrodissection was then performed with BSS on a flat-tip cannula. Next, the phacoemulsification handpiece was introduced into the eye and used to remove the nucleus in a [id number] fashion. This was done without complication and then the irrigation-aspiration handpiece was introduced into the eye and used to remove all remaining cortical and epinuclear material. Amvisc was then injected into the anterior chamber as well as into the capsular bag and using the lens injector system, an MX60 19.5 D lens, serial number [id number], and expiration date 09/2019 was injected into the capsular bag and rotated into the correct position. Next, the irrigation- aspiration handpiece was used to remove all remaining Amvisc. BSS was used to hydrate the main wound, and then BSS was injected into the paracentesis site to reach physiologic pressure and then the main wound was checked and found to be watertight. The patient was given drops of Vigamox and Tobradex ointment into the operative eye, and then the surrounding area was cleaned and dried. A clear plastic shield was placed over the eye and the patient was then sat up and taken from the operating room by the anesthesia staff having tolerated the procedure well and suffering no complications. DISPOSITION: The patient was returned to the recovery room in stable condition. I attest to the content of the Intraoperative Record and any orders documented therein. Any exceptions are noted below.
--- NOTE | 2018-01-29 07:59 | Discharge Instructions-[facility]urgCtr ---
Discharge Instructions Date of Service Jan 29, 2018. Visit Reason for Visit: Cataract Left Eye Discharge Discharge Diagnosis / Problem: left cataract Discharge Goals Goal(s): Decrease discomfort, Improve function Activity Recommendations Activity Limitations: as noted below Anesthesia . Post Anesthesia Instructions: If you have had General Anesthesia or IV Sedation: * Do not drive today. * Resume driving when surgeon permits. * Do not make important decisions or sign legal documents today. * Call surgeon for: 1. Temperature elevations greater than 101 degrees F. 2. Uncontrollable pain. 3. Excessive bleeding. 4. Persistent nausea and vomiting. 5. Medication intolerance (nausea, vomiting or rash). * For nausea and vomiting use only clear liquids such as: tea, soda, bouillon until nausea subsides, then gradually increase diet as tolerated. * If you have any concerns or questions, call your surgeon's office. If physician is unavailable and it is an emergency, call 911 or go to the nearest emergency room. . Instructions / Follow-Up Instructions / Follow-Up ACTIVITY RECOMMENDATIONS: * Light activities. * You may walk outside, read, watch television. * You may notice redness on the white part of the eye and some blurry vision - this is normal. MEDICATIONS: Resume previous medications unless instructed otherwise by your surgeon. Start all eye drops at 10 am today: * Eye drops (today): Prednisone - one drop in operative eye every 2 hours while awake Ofloxacin - one drop in operative eye every 2 hours while awake Ketorolac - one drop in operative eye 4 times daily SPECIAL CARE INSTRUCTIONS: * Tape plastic shield over eye to sleep at night. Call your doctor at with any concerns or problems. FOLLOW UP VISIT: Follow-up with Dr Chavez at [facility] as scheduled. Diet Recommendations Home Diet: no limitations Procedures Procedures Performed: Left Cataract Phacoemulsification With Intraocular Lens Implant Pending Studies Studies pending at discharge: no Medical Emergencies . Who to Call and When: Medical Emergencies: If at any time you feel your situation is an emergency, please call 911 immediately. . Non-Emergent Contact Non-Emergency issues call your: Surgeon . . "Provider Documentation" section prepared by Mateusz Chavez. .
[2018-01-29 08:02] VITALS: TEMP 36.8
[2018-01-29 08:20] VITALS: BP 151/84; PULSE 89; O2SAT 95
--- NOTE | 2018-01-29 08:25 | Anesthesia Progress Nt - [facility] ---
Anesthesia Post Op Note Date & Time Jan 29, 2018 at 08:24 Vital Signs Pain Intensity: 0 Vital Signs Past 12 Hours Date Time Temp Pulse Resp B/P (MAP) Pulse Ox O2 Delivery O2 Flow Rate FiO2 01/29/18 08:20 89 16 151/84 (106) 95 Room Air 01/29/18 08:02 36.8 89 20 158/96 (116) 96 Room Air 01/29/18 06:32 36.8 95 20 153/94 (113) 94 Room Air Notes Mental Status: alert / awake / arousable, participated in evaluation Pt Amnestic to Procedure: Yes Nausea / Vomiting: adequately controlled Pain: adequately controlled Airway Patency, RR, SpO2: stable & adequate BP & HR: stable & adequate Hydration State: stable & adequate Anesthetic Complications: no major complications apparent
== END | disposition home or self-care (01) ==
LOC: X.SURG 06:11
PROVIDERS: ATTEND Ophthalmology
DX: H25.12 Age-related nuclear cataract, left eye (principal); I10 Essential (primary) hypertension; J45.909 Unspecified asthma, uncomplicated; E66.01 Morbid (severe) obesity due to excess calories; Z88.7 Allergy status to serum and vaccine; Z91.040 Latex allergy status; Z96.653 Presence of artificial knee joint, bilateral; Z98.890 Other specified postprocedural states; Z98.41 Cataract extraction status, right eye; Z86.718 Personal history of other venous thrombosis and embolism; Z85.3 Personal history of malignant neoplasm of breast

== ENCOUNTER 2019-07-03 11:23 | Inpatient (IN) ==
[2019-07-03] MEDS ORDERED: dilTIAZem HCl 5 MG/ML 5 ML VIAL IV STA (11:35)
[2019-07-03] MEDS ORDERED: SODIUM CHLORIDE 0.9% 500 ML IV SCH (11:45)
[2019-07-03] MEDS: dilTIAZem HCL 125 MG in DEXTROSE 5% 100 ML IV SCH ×2 (11:58→21:16)
--- NOTE | 2019-07-03 12:00 | XRay Report ---
XR chest 1V portable CLINICAL HISTORY: Chest Pain dyspnea COMPARISON STUDY: 11/13/2017 FINDINGS: Moderate cardiomegaly. Prominent pulmonary vasculature. Diaphragms are smooth. IMPRESSION: Congestive heart failure The above report was generated using voice recognition software. It may contain grammatical, syntax or spelling errors. Electronically signed by: Johann Pena M.D. 07/03/2019 11:58 AM
[2019-07-03 12:01] LABS: Basophils # (auto) 0.05 K/uL (0-0.2); Basophils % (auto) 0.5 %; Eosinophils # (auto) 0.18 K/uL (0-0.5); Hematocrit (blood only) 40.9 % (37-47); Hemoglobin 13.6 g/dL (12.0-16.0); Immature Granulocytes # (auto) 0.03 K/uL (0.00-0.02); Immature Granulocytes % (auto) 0.3 %; Lymphocytes % (auto) 16.4 %; Mean Corpuscular Hgb Conc 33.3 g/dL (32-36); Mean Corpuscular Volume 87.2 fL (80-100); Mean Platelet Volume 11.1 fL (7.4-10.4); Monocytes # (auto) 0.65 K/uL (0.11-0.59); Monocytes % (auto) 7.1 %; Neutrophils # (auto) 6.71 K/uL (1.4-6.5); Neutrophils % (auto) 73.7 %; Platelet Count 305 K/uL (130-400); RDW Coefficient of Variation 14.6 % (11.5-14.5); RDW Standard Deviation 46.1 fL (36.4-46.3); Red Blood Count 4.69 M/uL (4.2-5.4); White Blood Count 9.12 K/uL (4.8-10.8)
[2019-07-03 12:18] LABS: Alanine Aminotransferase 18 U/L (12-78); Albumin Level 3.4 gm/dl (3.4-5.0); Aspartate Aminotransferase 17 U/L (15-37); BUN Creatinine Ratio 14.4 (10-20); Blood Urea Nitrogen 16 mg/dl (7-18); Calcium 8.9 mg/dl (8.5-10.1); Carbon Dioxide 24 mmol/L (21-32); Chloride 110 mmol/L (98-107); Creatinine Clr Calc Pharmacy 51.3 ml/min; Est GFR (Non-African American) 50.9; Glucose 140 mg/dl (70-99); Lipase 81 U/L (73-393); Potassium 3.6 mmol/L (3.5-5.1); Sodium 143 mmol/L (136-145)
[2019-07-03 12:23] LABS: Albumin Globulin Ratio 0.9 (0.9-2); Alkaline Phosphatase 89 U/L (45-117); Bilirubin,Total 0.7 mg/dl (0.2-1); Globulin 3.9 gm/dl (2.5-4.0); Total Protein 7.3 gm/dl (6.4-8.2); Troponin I < 0.015 ng/ml (0-0.045)
--- NOTE | 2019-07-03 14:37 | History & Physical Report ---
Date of Service July 03, 2019 Assessment & Plan (1) Acute respiratory failure with hypoxia: This is a 74yo F with a PMH of asthma, h/o DVT, mood disorder, HTN, hypothyroidism and other medical problems listed below who presents with progressive SOB x 3 days and was found to have new onset A fib with RVR and asthma exacerbation. -Has been saturating at 95% on 4L NC. Does not require oxygen at home -In setting of A Fib with RVR and asthma exacerbation (2) Atrial fibrillation with RVR: Found to be tachycardic at 155 bpm, EKG with atrial fibrillation with RVR -No leukocytosis or electrolyte abnormalities. Troponin is normal. TSH and mag pending -Chest x-ray with evidence of congestive heart failure -Started on diltiazem bolus and drip with reduction of HR to 120s -Plan to continue drip for now -IV heparin for anticoagulation -Routine cardio consult (3) Asthma exacerbation: Non-compliant with Flovent but has been taking rescue inhaler -Added Xopenex nebs Q6H, solumedrol 40mg x 1. Will continue with prednisone 40mg daily -Continue supplemental O2 (4) Volume overload: Evidence of CHF on CXR -No documented history of CHF -Given 20mg IV Lasix and will give another 20mg this evening. Monitor volume status -2D echo (5) HTN (hypertension): Continue losartan (6) Mood disorder: Stable. Continue Effexor, Buspar DVT Ppx: Receiving IV heparin Code status: FULL PCP: Prateek Walters Dispo: Admitted to telemetry. Plan to return home once medically stable. Patient seen in collaboration with Dr. Warner. Please see addendum. History of Present Illness Chief Complaint: resp distress Primary Care Provider: Dameon Wallace DO This is a 74yo F with a PMH of asthma, h/o DVT, mood disorder, HTN, hypothyroidism and other medical problems listed below who presents with progressive SOB x 3 days. Shortness of breath started as exertional but progressed to constant as of today. Patient has not been able to do her normal amount of housework. Associated symptoms include lightheadedness, dizziness and nausea. Has been audibly wheezing for the past few days and has been using rescue albuterol inhaler as well as her nebulizer treatment nightly. 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 Denies chest pain or palpitations. No fever, chills, headache, visual changes, vomiting, abdominal pain, dysuria, constipation or diarrhea. Denies weight gain, orthopnea or PND. Has chronic lower extremity swelling that is at baseline. ED, patient found to be tachycardic at 155 bpm. EKG with atrial fibrillation with RVR. Is saturation at 97% on 4 L NC O2 (does not require O2 at home). Chest x-ray with evidence of congestive heart failure. No leukocytosis or electrolyte abnormalities. Troponin is normal. Denies history of atrial fibrillation. Does have history of DVT was approximately 5-10 years ago. Allergies Allergy/AdvReac Type Severity Reaction Status Date / Time potato Allergy Severe THROAT Verified 07/03/19 12:25 SWELLS,EYES ITCHY (RAW POTATOES ONLY) adhesive Allergy Unknown HEAVIER Verified 07/03/19 12:25 SURG TAPE-REDNESS SORE SKIN cat dander Allergy Unknown ITCHY Verified 07/03/19 12:25 NOSE, ITCHY EYES,RUNNY NOSE grass pollen-perennial rye, Allergy Unknown GRASS,MOLD-ITCHY Verified 07/03/19 12:25 standar EYES RUNNY NOSE latex Allergy Unknown CONTACT Verified 07/03/19 12:25 DERMATITIS tetanus toxoid, adsorbed Allergy Unknown SWELLING Verified 07/03/19 12:25 AT SITE KOLE Inhibitors AdvReac Unknown COUGH Unverified 07/03/19 12:25 Home Medications Home Medications Medication Instructions Recorded Confirmed Type buspirone 10 mg PO BID 01/24/19 07/03/19 History levothyroxine 50 mcg PO QAM 01/24/19 07/03/19 History losartan 12.5 mg PO QAM 01/24/19 07/03/19 History montelukast 10 mg PO QAM 01/24/19 07/03/19 History venlafaxine 150 mg PO QAM 01/24/19 07/03/19 History albuterol sulfate 2 inh INHALATION Q4H PRN 07/03/19 07/03/19 History fluticasone propionate [Flovent 2 puff INHALATION BID 07/03/19 07/03/19 History HFA] gabapentin 300 mg PO HS 07/03/19 07/03/19 History Past Med/Surg History Medical History Mood disorder (Chronic) History of DVT (deep vein thrombosis) (Chronic) Depression (Chronic) HTN (hypertension) (Chronic) Prediabetes (Chronic) Asthma (Chronic) Scoliosis (Chronic) Arthritis (Chronic) Surgical History H/O: hysterectomy (Chronic) History of mastectomy (Chronic) Family History Other Heart disease Social History Preferred Language: Latvian Feels Safe at Home: Yes Smoking Status: Never smoker Review of Systems Review of Systems: At least ten systems reviewed and negative except as noted in the HPI. Physical Exam Physical Exam: General Appearance: WD/WN, vitals as above, appears to be in respiratory distress when speaking with accessory muscle use, diaphoretic, saturating at 95% on 4L NC Head: normocephalic, atraumatic Eyes: normal inspection, PERRL, conjunctivae normal, anicteric sclerae ENT: external ear and nose normal, oropharynx normal Neck: trachea midline, no thyromegaly, normal visual inspection Respiratory: normal respiratory effort, poor air movement bilaterally, expiratory wheezes. + accessory muscle use Cardiovascular: tachycardic, irregular rate & rhythm, no murmur appreciated, normal peripheral pulses, trace BLE edema L>R. Vessels: no JVD or carotid bruit Chest: normal inspection of chest Abdomen/GI: normal bowel sounds, soft, nontender, no hepatosplenomegaly Extremities/Musculoskelatal: no cyanosis or clubbing, extremities motor strength 5/5 Neurologic: PERRL, EOMI, accommodation nl, no face palsy, no dysarthria CN's II-XI intact bilaterally and moves all extremities Psychiatric: A+Ox3, euthymic affect Skin: no rashes, normal color, warm/dry Results & Data Vital Signs (Past 12 Hours) Vital Signs Temp Pulse Pulse Resp BP BP Pulse Ox 07/03/19 13:18 105 H 20 151/117 H 96 07/03/19 12:30 107 H 23 161/132 H 92 07/03/19 12:17 112 H 28 H 158/106 H 93 07/03/19 12:00 105 H 25 H 93 07/03/19 11:51 110 H 28 H 151/85 H 94 07/03/19 11:45 139 H 26 H 96 07/03/19 11:38 36.5 C 150 H 22 162/124 H 97 07/03/19 11:33 166 H 26 H 95 07/03/19 11:31 151 H 26 H 162/124 H 07/03/19 11:29 155 H 21 140/125 H Laboratory Results Short CBC 07/03/19 Range/Units 11:47 WBC 9.12 (4.8-10.8) K/uL Hgb 13.6 (12.0-16.0) g/dL Hct 40.9 (37-47) % Plt Count 305 (130-400) K/uL BMP 07/03/19 11:47 Sodium 143 Potassium 3.6 Chloride 110 H Carbon Dioxide 24 BUN 16 Creatinine 1.08 Glucose 140 H Calcium 8.9 Cardiac Enzymes 07/03/19 Range/Units 11:47 Troponin I < 0.015 (0-0.045) ng/ml Liver Function 07/03/19 Range/Units 11:47 Total Bilirubin 0.7 (0.2-1) mg/dl AST 17 (15-37) U/L ALT 18 (12-78) U/L Alkaline Phosphatase 89 (45-117) U/L Albumin 3.4 (3.4-5.0) gm/dl Diagnostic Findings CXR: IMPRESSION: Congestive heart failure ECG Rhythm: atrial fibrillation Code Status & VTE Plan VTE Prophylaxis Plan VTE Prophylaxis will be ordered: Yes Supervising Physician Co-Signing Physician Notes I have seen and assessed the patient with physician plant attendant or assistant operator and agree with the assessment and plan and would like to comment that This is a 74 year old female with History of Thromboembolism in the distant past with residual left lower extremity swelling and not currently on anticoagulation medication at home, with history of asthma, and no previous known cardiac arrhythmia, with primary symptoms of dyspnea and on presentation to the ED was found to be in ATRIAL FIBRILLATION WITH RAPID VENTRICULAR RESPONSE and also wheezing suggestive of ACUTE ASTHMA EXACERBATION. Om Chest X ray suggestive of volume overload and suggestive of Acute Congestive heart failure. In treatment of the atrial fibrillation, patient has elly on Diltiazem drip and started on IV heparin and will need over time to be transition to oral rate control medications. Patient's acute asthma exacerbation also refractory to initial nebulizer treatments and will need further nebulizer treatments and solumedrol 40 mg IV x 1 given. would avoid excessive IV solumedrol to avoid exacerbation of tachycardia. Because of patient's history of thromboembolism in the past, a d- dimer was sent to try to rule out pulmonary embolism. However patient has ELEVA CAMILLE D-DIMER and plans are being made to obtain CTA of the Chest while currently on ANTICOAGULATION WITH ANTICOAGULATION THERAPY of HEPARIN IV for treatment of stroke prevention from atrial fibrillation. will continue to monitor patient on telemetry otherwise agree with assessment and plan of physician plant attendant or assistant operator On exam General: awake and verbal, cooperative Lungs: expiratory wheezes Heart: tachycardia to the 120s with irregular rhythm Abdomen: soft, nontender, positive bowel sounds Extremities: left lower extremity more swollen the left lower extremity My colleague Dr. Ashby will be following the patient starting on 07/04/19
[2019-07-03] MEDS ORDERED: LEVALBUTEROL HCL 0.63 MG/3 ML NEB NEB STA (14:38)
--- NOTE | 2019-07-03 14:46 | Emergency Department Note ---
Entered by Cielo Faye acting as a scribe for Himanshu Silveira DO History of Present Illness General Chief complaint: Respiratory Distress Time Seen by Provider: 07/03/19 11:35 Source: patient and EMS History of Present Illness Provider complaint: respiratory distress Onset (ago): day(s) 2 Pain Consistency: + other (worsening) Quality: + other (respiratory distress) Relieved By: + none Associated symptoms: + other (could barely talk secondary to respiratory distress, runny nose); no cough Treatments prior to arrival: other (albuterol inhaler) The patient is a 74 year old female who presents to the ED with complaints of worsening shortness of breath that started 2 days ago. The patient states that she has asthma and has been using her inhaler and nebulizer but it has not been helping. Per EMS, the patient could barely breathe upon arrival. Per EMS, the patient was given an albuterol inhaler en route. The patient states that she also has a runny nose but denies having a cough. Home Medications Home Medications Medication Instructions Recorded Confirmed Type buspirone 10 mg PO BID 01/24/19 07/03/19 History levothyroxine 50 mcg PO QAM 01/24/19 07/03/19 History losartan 12.5 mg PO QAM 01/24/19 07/03/19 History montelukast 10 mg PO QAM 01/24/19 07/03/19 History venlafaxine 150 mg PO QAM 01/24/19 07/03/19 History gabapentin 300 mg PO HS 07/03/19 07/03/19 History Allergies Allergy/AdvReac Type Severity Reaction Status Date / Time potato Allergy Severe THROAT Verified 07/03/19 12:25 SWELLS,EYES ITCHY (RAW POTATOES ONLY) adhesive Allergy Unknown HEAVIER Verified 07/03/19 12:25 SURG TAPE-REDNESS SORE SKIN cat dander Allergy Unknown ITCHY Verified 07/03/19 12:25 NOSE, ITCHY EYES,RUNNY NOSE grass pollen-perennial rye, Allergy Unknown GRASS,MOLD-ITCHY Verified 07/03/19 12:25 standar EYES RUNNY NOSE latex Allergy Unknown CONTACT Verified 07/03/19 12:25 DERMATITIS tetanus toxoid, adsorbed Allergy Unknown SWELLING Verified 07/03/19 12:25 AT SITE KOLE Inhibitors AdvReac Unknown COUGH Unverified 07/03/19 12:25 Past Med/Surg History Medical History Asthma Scoliosis Arthritis Social History Preferred Language: Austrian Feels Safe at Home: Yes Smoking Status: Never smoker Review of Systems See HPI for pertinent positives & negatives. and A total of 10 systems reviewed and were otherwise negative Physical Exam Vital Signs Vital Signs - 24 hr 07/03/19 11:29 07/03/19 11:31 07/03/19 11:33 Temperature Temperature Source Sepsis Recent Fever Within 48 Hours Sepsis New/Unexplained Change in Mental Status Sepsis Action Taken by Nursing Pulse Rate 155 H 151 H 166 H Pulse Rate [Right Radial] Pulse Rate from SpO2 Sensor 165 H Pulse Rhythm Pulse Strength Respiratory Rate 21 26 H 26 H Respiratory Effort / Characteristics Respiratory Depth Respiratory Pattern Blood Pressure 140/125 H 162/124 H Blood Pressure [Right Arm] Blood Pressure Mean 130 136 Blood Pressure Mean [Right Arm] Blood Pressure Position Blood Pressure Position [Right Arm] Pulse Oximetry 95 Oxygen Delivery Method Nasal Cannula Oxygen Flow Rate 4 07/03/19 11:35 07/03/19 11:38 07/03/19 11:45 Temperature 36.5 C Temperature Source Oral Sepsis Recent Fever Within 48 Hours No Sepsis New/Unexplained Change in Mental Status No Sepsis Action Taken by Nursing No Action Required Pulse Rate 150 H 139 H Pulse Rate [Right Radial] Pulse Rate from SpO2 Sensor 148 H Pulse Rhythm Irregular Pulse Strength Normal Respiratory Rate 22 26 H Respiratory Effort / Characteristics Labored Short of Breath Non-Labored Spontaneous Respiratory Depth Shallow Normal Respiratory Pattern Tachypnea Regular Blood Pressure 162/124 H Blood Pressure [Right Arm] Blood Pressure Mean 136 Blood Pressure Mean [Right Arm] Blood Pressure Position Lying Blood Pressure Position [Right Arm] Pulse Oximetry 97 96 Oxygen Delivery Method Nasal Cannula Nasal Cannula Nasal Cannula Oxygen Flow Rate 4 4 4 07/03/19 11:51 07/03/19 12:00 07/03/19 12:17 Temperature Temperature Source Sepsis Recent Fever Within 48 Hours Sepsis New/Unexplained Change in Mental Status Sepsis Action Taken by Nursing Pulse Rate 110 H 105 H Pulse Rate [Right Radial] 112 H Pulse Rate from SpO2 Sensor 115 H 111 H Pulse Rhythm Pulse Strength Respiratory Rate 28 H 25 H 28 H Respiratory Effort / Characteristics Labored Short of Breath Respiratory Depth Shallow Respiratory Pattern Blood Pressure 151/85 H Blood Pressure [Right Arm] 158/106 H Blood Pressure Mean 107 Blood Pressure Mean [Right Arm] 123 Blood Pressure Position Blood Pressure Position [Right Arm] Lying Pulse Oximetry 94 93 93 Oxygen Delivery Method Nasal Cannula Nasal Cannula Nasal Cannula Oxygen Flow Rate 4 4 4 07/03/19 12:30 07/03/19 13:18 Temperature Temperature Source Sepsis Recent Fever Within 48 Hours Sepsis New/Unexplained Change in Mental Status Sepsis Action Taken by Nursing Pulse Rate 107 H Pulse Rate [Right Radial] 105 H Pulse Rate from SpO2 Sensor 122 H Pulse Rhythm Pulse Strength Respiratory Rate 23 20 Respiratory Effort / Characteristics Respiratory Depth Respiratory Pattern Blood Pressure 161/132 H Blood Pressure [Right Arm] 151/117 H Blood Pressure Mean 141 Blood Pressure Mean [Right Arm] 128 Blood Pressure Position Blood Pressure Position [Right Arm] Pulse Oximetry 92 96 Oxygen Delivery Method Room Air Oxygen Flow Rate CONSTITUTIONAL/VITAL SIGNS: Reviewed / noted above. GENERAL: Non-toxic in appearance. INTEGUMENTARY: Warm, dry, and [place]. HEAD: Normocephalic. EYES: without scleral icterus or trauma. ENT/OROPHARYNX: clear and moist. LYMPHADENOPATHY/NECK: Is supple without lymphadenopathy or meningismus. RESPIRATORY: Increased work of breathing. Stridulous breathing in upper airway that can be controlled by the patient. CARDIOVASCULAR: Irregular, tachycardic rate and regular rhythm. GI/ABDOMEN: Soft and nontender. No organomegaly or pulsatile mass. No rebound or guarding. Normal bowel sounds. EXTREMITIES: Warm and well perfused. BACK: No CVA tenderness. NEUROLOGICAL: Intact without focal deficits. PSYCHIATRIC: normal affect. MUSCULOSKELETAL: Normally developed with good muscle tone. Course 1129: Past medical records reviewed. The patient was evaluated in room A4. A complete history and physical exam was performed. 1357: I discussed the patient's case with Marivel Sauceda PA-C. She will evaluate the patient for further management. Consultations Consultation #1: I discussed the patient's case with Marivel Sauceda PA-C. She will evaluate the patient for further management. Time: 13:57 Administered Medications Diltiazem HCl 125 mg/ Dextrose 125 mls @ 10 mls/hr IV .[id number] [facility]; Protocol Stop: 08/02/19 11:44 Last Admin: 07/03/19 11:58 Dose: 10 mg/hr, 10 mls/hr Documented by: [id number] Cosigned by: [id number] Discontinued Medications Diltiazem HCl (Cardizem) 25 mg IV NOW STA Stop: 07/03/19 11:36 Last Admin: 07/03/19 11:45 Dose: 25 mg Documented by: [id number] Cosigned by: [id number] Sodium Chloride (Nss) 500 mls @ 999 mls/hr IV .Q31M DAO Stop: 07/03/19 12:15 Last Infusion: 07/03/19 12:21 Dose: 0 mls/hr Documented by: [id number] Admin: 07/03/19 11:47 Dose: 999 mls/hr Documented by: [id number] Medical Decision Making Differential Diagnosis Differential diagnosis: Etiologies such as infections, reactive airway disease, COPD, pneumonia, pleural effusion, pulmonary edema, ARDS, pneumothorax, CHF, cardiac ischemia, cardiac tamponade, dysrhythmia, anemia, pulmonary embolism, musculoskeletal, gastroin testinal process, as well as others were entertained. Medical Records Attestation: I reviewed the patient's medical records. Home Medications Current Medication List: was personally reviewed by me Laboratory Data Attestation: I reviewed the patient's lab results. Result diagrams: 07/03/19 11:47 07/03/19 11:47 Lab Results 07/03/19 07/03/19 Range/Units 11:47 11:47 WBC 9.12 (4.8-10.8) K/uL RBC 4.69 (4.2-5.4) M/uL Hgb 13.6 (12.0-16.0) g/dL Hct 40.9 (37-47) % MCV 87.2 (80-100) fL MCH 29.0 (25-34) pg MCHC 33.3 (32-36) g/dL RDW Std Deviation 46.1 (36.4-46.3) fL RDW Coeff of Stephan 14.6 H (11.5-14.5) % Plt Count 305 (130-400) K/uL MPV 11.1 H (7.4-10.4) fL Immature Gran % (Auto) 0.3 % Neut % (Auto) 73.7 % Lymph % (Auto) 16.4 % Wayne % (Auto) 7.1 % Eos % (Auto) 2.0 % Baso % (Auto) 0.5 % Immature Gran # (Auto) 0.03 H (0.00-0.02) K/uL Neut # (Auto) 6.71 H (1.4-6.5) K/uL Lymph # (Auto) 1.50 (1.2-3.4) K/uL Wayne # (Auto) 0.65 H (0.11-0.59) K/uL Eos # (Auto) 0.18 (0-0.5) K/uL Baso # (Auto) 0.05 (0-0.2) K/uL Sodium 143 (136-145) mmol/L Potassium 3.6 (3.5-5.1) mmol/L Chloride 110 H (98-107) mmol/L Carbon Dioxide 24 (21-32) mmol/L Anion Gap 9.0 (3-11) BUN 16 (7-18) mg/dl Creatinine 1.08 (0.6-1.2) mg/dl Est Cr Clr Drug Dosing 51.3 ml/min Est GFR ( Amer) 59.0 Est GFR (Non-Af Amer) 50.9 BUN/Creatinine Ratio 14.4 (10-20) Glucose 140 H (70-99) mg/dl Calcium 8.9 (8.5-10.1) mg/dl Total Bilirubin 0.7 (0.2-1) mg/dl AST 17 (15-37) U/L ALT 18 (12-78) U/L Alkaline Phosphatase 89 (45-117) U/L Troponin I < 0.015 (0-0.045) ng/ml Total Protein 7.3 (6.4-8.2) gm/dl Albumin 3.4 (3.4-5.0) gm/dl Globulin 3.9 (2.5-4.0) gm/dl Albumin/Globulin Ratio 0.9 (0.9-2) Lipase 81 (73-393) U/L Imaging Data Radiologist's Impression: Radiology results as stated below per my review and the radiologist's interpretation: XR chest 1V portable CLINICAL HISTORY: Chest Pain dyspnea COMPARISON STUDY: 11/13/2017 FINDINGS: Moderate cardiomegaly. Prominent pulmonary vasculature. Diaphragms are smooth. IMPRESSION: Congestive heart failure The above report was generated using voice recognition software. It may contain grammatical, syntax or spelling errors. Electronically signed by: Johann Pena M.D. 07/03/2019 11:58 AM ECG Data Attestation: I personally reviewed and interpreted this ECG as follows: Indication: SOB/dyspnea Rate (beats per minute): 162 Rhythm: atrial fibrillation Findings: no PAC, no PVC, no ST elevation and no ectopy Blood Pressure Blood Pressure Findings: Elevated blood pressure Blood Pressure Disposition: further management by hospitalist MDM Narrative This is a 74-year-old female who presents to the ED with a chief complaint of shortness of breath x2 days. The patient was brought in by EMS wheezing and short of breath. She is found to be in A. fib with RVR. The patient was given IV Solu-Medrol by EMS and a DuoNeb treatment. The patient's exam reveals some upper airway stridorous noises that are distractible or can be resolved by the patient. She is moving good air in her lungs. She is tachycardic. EKG showed A. fib with a rate of 160. No ST elevations or ectopy. CBC and complete metabolic panel were normal lipase was negative. Troponin was negative. Chest x-ray, per the radiologist reveals congestive changes. The patient was given IV diltiazem bolus and IV diltiazem drip. Heart rate was improved. She was given a DuoNeb treatment. The patient did have some improvement of her symptoms with this. Her oxygen saturations remained around 96% on room air. Her vital signs improved. She will be seen by the hospitalist for further evaluation and care. Impression & Plan Atrial fibrillation with RVR Critical Care Time Critical Care Time: Yes Total Critical Care Time: 35 I have personally spent 35 minutes of critical care time in the direct management of this patient. This includes bedside care, interpretation of diagnostic studies, and testing, discussion with consultants, patient, and family members, and other required patient management activities. This 35 mi nutes is in excess of all separately billable procedures. Discharge Plan Visit Data Chief Complaint: Respiratory Distress ED Provider: Himanshu Silveira Discharge Problem: Atrial fibrillation with RVR Patient Disposition: Being Evaluated by Hospitalist Forms Stand Alone Forms: My [facility] Prescriptions Prescriptions: No Action venlafaxine 150 mg capsule,extended release 24hr 150 mg PO QAM RF: 0 levothyroxine 50 mcg tablet 50 mcg PO QAM RF: 0 buspirone 10 mg tablet 10 mg PO BID RF: 0 losartan 25 mg tablet 12.5 mg PO QAM RF: 0 montelukast 10 mg tablet 10 mg PO QAM RF: 0 gabapentin 300 mg capsule 300 mg PO HS RF: 0 Referrals Referrals: Dameon Wallace, [Primary Care Provider] - The scribe's documentation has been prepared under my direction and personally reviewed by me in its entirety. I confirm that the note above accurately reflects all work, treatment, procedures, and medical decision making performed by me.
[2019-07-03] MEDS ORDERED: HEPARIN SOD (PORCINE) 1000 UNIT/ML 10 ML VIAL IV STA (15:14)
[2019-07-03] MEDS ORDERED: FUROSEMIDE 20 MG in SYRINGE 0 ML IV ONE ×2 (15:22→18:45)
[2019-07-03 15:48] LABS: D Dimer 1090 ug/L FEU (0-500)
[2019-07-03] MEDS ORDERED: ALBUTEROL HFA 8 GM INHALER INH ONE (15:56)
[2019-07-03 16:10] LABS: Magnesium 2.2 mg/dl (1.8-2.4); Thyroid Stimulating Hormone 3.15 uIu/ml (0.300-4.500)
[2019-07-03] MEDS: HEPARIN SODIUM/DEXTROSE 25,000 UNITS/500 ML BAG IV SCH (16:26)
[2019-07-03] MEDS ORDERED: ONDANSETRON INJ 2 MG/ML 2 ML VIAL IV PRN (16:57)
[2019-07-03] MEDS ORDERED: POLYETHYLENE (MIRALAX) 17 GM PACK PO PRN (16:57)
[2019-07-03] MEDS ORDERED: ALBUTEROL HFA 8 GM INHALER INH PRN (16:57)
[2019-07-03] MEDS ORDERED: FUROSEMIDE 40 MG/4 ML VIAL IV ONE (17:00)
[2019-07-03] MEDS ORDERED: METOPROLOL TARTRATE 25 MG TAB PO STA (18:24)
[2019-07-03] MEDS ORDERED: METOPROLOL TARTRATE 1 MG/ML VIAL IV STA (18:25)
[2019-07-03] MEDS ORDERED: METOPROLOL TARTRATE 1 MG/ML VIAL IV PRN (18:25)
[2019-07-03] MEDS ORDERED: METOPROLOL TARTRATE 1 MG/ML VIAL IV ONE (18:29)
[2019-07-03] MEDS: FUROSEMIDE 20 MG in SYRINGE 0 ML IV SCH ×2 (18:32→21:48)
[2019-07-03] MEDS: LEVALBUTEROL HCL 0.63 MG/3 ML NEB NEB SCH (18:51)
[2019-07-03] MEDS: FLUTICASONE HFA 110MCG INHALER INH SCH (21:18)
[2019-07-03] MEDS: GABAPENTIN 300 MG CAP PO SCH (21:20)
[2019-07-03] MEDS ORDERED: OPTIRAY 320 125ml IV PRN (21:27)
--- NOTE | 2019-07-03 21:55 | CT Scan Report ---
CT ANGIOGRAPHY OF THE CHEST, PULMONARY EMBOLUS PROTOCOL CLINICAL HISTORY: Shortness of breath. Evaluate for pulmonary embolus. COMPARISON STUDY: Chest CT January 24, 2019. Chest radiograph performed earlier today. TECHNIQUE: Following IV administration of 119 mL of Optiray-320, helical axial images of the chest we re obtained utilizing the pulmonary embolus protocol. Maximal intensity projections and sagittal and coronal reformats were viewed on an independent 3D workstation. IV contrast was administered withou t complication. Automated exposure control was utilized for the study. A dose lowering technique wa s utilized adhering to the principles of ALARA. CT DOSE: 543.61 mGy.cm FINDINGS: No central pulmonary emboli are identified. This exam is significantly compromised by resp iratory motion. The segmental and subsegmental pulmonary arteries are suboptimally assessed. There is moderate cardiomegaly. No enlarged thoracic lymph node is are present. There is no pneumothorax. Sma ll bilateral pleural effusions are noted. Lungs are suboptimally assessed given respiratory motion. G roundglass opacities are noted within the lungs. There are scattered bilateral airspace opacities as well. These are most pronounced within the bilateral lower lobes. Bony thorax and upper abdomen are u nremarkable. IMPRESSION: 1. No central or lobar pulmonary emboli identified. Remainder of pulmonary arteries suboptimally asse ssed respiratory motion. 2. Suspected pulmonary edema with small bilateral pleural effusions. 3. Additional bilateral airspace opacities within the lungs which may reflect a superimposed infectio us process or alveolar edema. 4. Moderate cardiomegaly. Electronically signed by: Mohan Hutson M.D. 07/03/2019 9:53 PM
[2019-07-03 22:46] LABS: Partial Thromboplastin Ratio 2.4
[2019-07-03 22:48] LABS: Partial Thromboplastin Time 65.3 Seconds (21.0-31.0)
[2019-07-04] MEDS: LEVALBUTEROL HCL 0.63 MG/3 ML NEB NEB SCH ×3 (00:43→13:40)
[2019-07-04] MEDS: dilTIAZem HCL 125 MG in DEXTROSE 5% 100 ML IV SCH ×3 (05:51→23:29)
[2019-07-04] MEDS: LEVOTHYROXINE SODIUM 50 MCG TABLET PO SCH (06:05)
[2019-07-04 06:13] LABS: Hematocrit (blood only) 37.6 % (37-47); Hemoglobin 12.4 g/dL (12.0-16.0); Mean Corpuscular Hemoglobin 28.3 pg (25-34); Mean Corpuscular Volume 85.8 fL (80-100); Mean Platelet Volume 11.4 fL (7.4-10.4); Platelet Count 339 K/uL (130-400); RDW Coefficient of Variation 14.4 % (11.5-14.5); RDW Standard Deviation 44.7 fL (36.4-46.3); Red Blood Count 4.38 M/uL (4.2-5.4); White Blood Count 8.04 K/uL (4.8-10.8)
[2019-07-04 06:30] LABS: Partial Thromboplastin Time 54.9 Seconds (21.0-31.0)
[2019-07-04 06:37] LABS: Albumin Level 3.3 gm/dl (3.4-5.0); BUN Creatinine Ratio 16.6 (10-20); Calcium 8.3 mg/dl (8.5-10.1); Creatinine Clr Calc Pharmacy 49.5 ml/min; Est GFR (African American) 54.7; Est GFR (Non-African American) 47.2; Potassium 3.3 mmol/L (3.5-5.1)
[2019-07-04 06:40] LABS: Albumin Globulin Ratio 0.9 (0.9-2); Bilirubin,Total 0.7 mg/dl (0.2-1); Globulin 3.6 gm/dl (2.5-4.0); Total Protein 6.9 gm/dl (6.4-8.2)
[2019-07-04] MEDS ORDERED: POTASSIUM CHLORIDE 20 MEQ TABCR PO ONE (07:45)
[2019-07-04] MEDS: FLUTICASONE HFA 110MCG INHALER INH SCH ×2 (07:49→20:13)
[2019-07-04] MEDS: MONTELUKAST SODIUM 10 MG TABLET PO SCH (07:50)
[2019-07-04] MEDS: LOSARTAN POTASSIUM 25 MG TAB PO SCH (07:52)
[2019-07-04] MEDS: VENLAFAXINE HCL XR 150 MG CAPXR PO SCH (07:54)
[2019-07-04] MEDS ORDERED: predniSONE 20 MG TAB PO SCH (09:00)
[2019-07-04] MEDS ORDERED: METOPROLOL TARTRATE 25 MG TAB PO SCH (09:00)
[2019-07-04] MEDS ORDERED: methylPREDNISolone 125 MG/2 ML VIAL IV STA (11:52)
[2019-07-04] MEDS ORDERED: methylPREDNISolone 125 MG in SYRINGE 0 ML IV ONE (12:00)
--- NOTE | 2019-07-04 12:00 | Cardiology Consultation ---
Date of Consultation July 04, 2019 Assessment & Plan (1) Acute respiratory failure with hypoxia: (2) Asthma exacerbation: (3) Atrial fibrillation with RVR: (4) Volume overload: I would continue the IV Lasix but I would hold metoprolol at present due to exacerbation of asthma. I also increased her steroids to Solu-Medrol 120 mg daily. Her heart rate is controlled with IV diltiazem which I would continue. I will review her echocardiogram when it is complete. History of Present Illness Attending Physician: Evelyn Ashby DO History of Present Illness This is a 74-year-old female with no previous history of heart disease. She does have a history of asthma starting approximately 5 years ago. She was in her usual state of health until several weeks ago she noted increased shortness of breath with activity. Her symptoms have progressed over the past several weeks and recently become worse resulting in her coming to the hospital. After arrival here she was noted to be in atrial fibrillation with RVR. CT of the chest was negative for pulmonary emboli. She has been started on oxygen and treatment for both exacerbation of asthma and heart failure. She was also started on diltiazem which has improved her heart rates. She states that she is feeling better. Allergies Allergy/AdvReac Type Severity Reaction Status Date / Time potato Allergy Severe THROAT Verified 07/03/19 12:25 SWELLS,EYES ITCHY (RAW POTATOES ONLY) adhesive Allergy Unknown HEAVIER Verified 07/03/19 12:25 SURG TAPE-REDNESS SORE SKIN cat dander Allergy Unknown ITCHY Verified 07/03/19 12:25 NOSE, ITCHY EYES,RUNNY NOSE grass pollen-perennial rye, Allergy Unknown GRASS,MOLD-ITCHY Verified 07/03/19 12:25 standar EYES RUNNY NOSE latex Allergy Unknown CONTACT Verified 07/03/19 12:25 DERMATITIS tetanus toxoid, adsorbed Allergy Unknown SWELLING Verified 07/03/19 12:25 AT SITE KOLE Inhibitors AdvReac Unknown COUGH Unverified 07/03/19 12:25 Home Medications Home Medications Medication Instructions Recorded Confirmed Type buspirone 10 mg PO BID 01/24/19 07/03/19 History levothyroxine 50 mcg PO QAM 01/24/19 07/03/19 History losartan 12.5 mg PO QAM 01/24/19 07/03/19 History montelukast 10 mg PO QAM 01/24/19 07/03/19 History venlafaxine 150 mg PO QAM 01/24/19 07/03/19 History albuterol sulfate 2 inh INHALATION Q4H PRN 07/03/19 07/03/19 History fluticasone propionate [Flovent 2 puff INHALATION BID 07/03/19 07/03/19 History HFA] gabapentin 300 mg PO HS 07/03/19 07/03/19 History Patient History Medical History Mood disorder (Chronic) History of DVT (deep vein thrombosis) (Chronic) Depression (Chronic) HTN (hypertension) (Chronic) Prediabetes (Chronic) Asthma (Chronic) Scoliosis (Chronic) Arthritis (Chronic) Surgical History H/O: hysterectomy (Chronic) History of mastectomy (Chronic) Family History Other Heart disease Social History Preferred Language: [place]i Communication Ability: Effective Assembly Technician Required: No Beliefs That Will Affect Care: None Current Living Situation: Alone Other Information That Helps Us Care for You: No Feels Safe at Home: Yes Safety Concerns: Feels Safe At This Time Smoking Status: Never smoker Hx Alcohol Use: Yes Alcohol type: wine Hx Substance Use: No Review of Systems Review of Systems: All systems reviewed & are unremarkable except as noted in HPI & below Nothing additional Physical Exam Physical Exam: General: no acute distress and stated age Head: normocephalic, no masses, lesions, tenderness or abnormalities Eyes: conjunctiva are pink and non-injected, sclera clear Neck: supple, no adenopathy, no bruits, normal jugular venous pulse, no hepatojugular reflux Chest: normal shape and normal respiratory effort Lungs: Wheezing both lung perez Cardiac Exam: - irregular rate & rhythm, no murmurs gallops or rubs - normal S1, normal S2 Pulses: 2(+) throughout Abdomen: abdomen soft, non-tender, no abnormal masses and no hepatosplenomegaly Musculoskeletal: no gait disturbance, no joint inflammation, no deforming ar thritis Extremities: no edema and no cyanosis Neuro: grossly normal exam Results & Data Vital Signs (Past 12 Hours) Vital Signs Temp Pulse Pulse Resp BP Pulse Ox 07/04/19 11:43 36.8 C 80 22 129/80 92 07/04/19 08:45 71 18 93 07/04/19 08:06 92 H 22 151/85 H 93 07/04/19 04:32 36.2 C L 81 24 132/78 91 07/04/19 00:44 77 22 93 Laboratory Results Laboratory Results - last 24 hr 07/03/19 07/03/19 07/03/19 11:47 11:47 11:51 WBC RBC Hgb Hct MCV MCH MCHC RDW Std Deviation RDW Coeff of Stephan Plt Count MPV APTT PTT Ratio D-Dimer 1090 H* Sodium 143 Potassium 3.6 Chloride 110 H Carbon Dioxide 24 Anion Gap 9.0 BUN 16 Creatinine 1.08 Est Cr Clr Drug Dosing 51.3 Est GFR ( Amer) 59.0 Est GFR (Non-Af Amer) 50.9 BUN/Creatinine Ratio 14.4 Glucose 140 H Calcium 8.9 Magnesium 2.2 Total Bilirubin 0.7 AST 17 ALT 18 Alkaline Phosphatase 89 Troponin I < 0.015 Total Protein 7.3 Albumin 3.4 Globulin 3.9 Albumin/Globulin Ratio 0.9 Lipase 81 TSH 3.150 07/03/19 07/04/19 07/04/19 22:20 05:42 05:42 WBC 8.04 RBC 4.38 Hgb 12.4 Hct 37.6 MCV 85.8 MCH 28.3 MCHC 33.0 RDW Std Deviation 44.7 RDW Coeff of Stephan 14.4 Plt Count 339 MPV 11.4 H APTT 65.3 H* 54.9 H* PTT Ratio 2.4 2.0 D-Dimer Sodium Potassium Chloride Carbon Dioxide Anion Gap BUN Creatinine Est Cr Clr Drug Dosing Est GFR ( Amer) Est GFR (Non-Af Amer) BUN/Creatinine Ratio Glucose Calcium Magnesium Total Bilirubin AST ALT Alkaline Phosphatase Troponin I Total Protein Albumin Globulin Albumin/Globulin Ratio Lipase TSH 07/04/19 05:42 WBC RBC Hgb Hct MCV MCH MCHC RDW Std Deviation RDW Coeff of Stephan Plt Count MPV APTT PTT Ratio D-Dimer Sodium 140 Potassium 3.3 L Chloride 106 Carbon Dioxide 23 Anion Gap 11.0 BUN 19 H Creatinine 1.15 Est Cr Clr Drug Dosing 49.5 Est GFR ( Amer) 54.7 Est GFR (Non-Af Amer) 47.2 BUN/Creatinine Ratio 16.6 Glucose 180 H Calcium 8.3 L Magnesium 2.0 Total Bilirubin 0.7 AST 16 ALT 20 Alkaline Phosphatase 76 Troponin I Total Protein 6.9 Albumin 3.3 L Globulin 3.6 Albumin/Globulin Ratio 0.9 Lipase TSH Medications Administered Laboratory Results - last 24 hr 07/03/19 07/03/19 07/03/19 11:47 11:47 11:51 WBC RBC Hgb Hct MCV MCH MCHC RDW Std Deviation RDW Coeff of Stephan Plt Count MPV APTT PTT Ratio D-Dimer 1090 H* Sodium 143 Potassium 3.6 Chloride 110 H Carbon Dioxide 24 Anion Gap 9.0 BUN 16 Creatinine 1.08 Est Cr Clr Drug Dosing 51.3 Est GFR ( Amer) 59.0 Est GFR (Non-Af Amer) 50.9 BUN/Creatinine Ratio 14.4 Glucose 140 H Calcium 8.9 Magnesium 2.2 Total Bilirubin 0.7 AST 17 ALT 18 Alkaline Phosphatase 89 Troponin I < 0.015 Total Protein 7.3 Albumin 3.4 Globulin 3.9 Albumin/Globulin Ratio 0.9 Lipase 81 TSH 3.150 07/03/19 07/04/19 07/04/19 22:20 05:42 05:42 WBC 8.04 RBC 4.38 Hgb 12.4 Hct 37.6Current Inpatient Medications Acetaminophen (Tylenol) 650 mg PO Q4H PRN PRN Reason: Pain or Fever Stop: 08/02/19 16:56 Albuterol (Ventolin Hfa) 2 puffs INH Q4H PRN PRN Reason: Shortness Of Breath Stop: 08/02/19 16:56 Buspirone HCl (Buspar) 10 mg PO BID DAO Stop: 08/02/19 20:59 Last Admin: 07/04/19 07:53 Dose: 10 mg Documented by: Fluticasone Propionate (Flovent Hfa 110mch) 2 puffs INH BID DAO Stop: 08/02/19 20:59 Last Admin: 07/04/19 07:49 Dose: 2 puffs Documented by: Gabapentin (Neurontin) 300 mg PO HS DAO Stop: 08/02/19 20:59 Last Admin: 07/03/19 21:20 Dose: 300 mg Documented by: Diltiazem HCl 125 mg/ Dextrose 125 mls @ 15 mls/hr IV .Q8H20M [facility]; Protocol Stop: 08/02/19 11:44 Last Admin: 07/04/19 05:51 Dose: 15 mg/hr, 15 mls/hr Documented by: Heparin Sodium/Dextrose (Heparin Sodium/Dextrose) 25,000 units in 500 mls @ 25 mls/hr IV .Q20H [facility]; Protocol Stop: 08/02/19 15:14 Last Titration: 07/03/19 19:13 Dose: 1,250 units/hr, 25 mls/hr Documented by: Methylprednisolone 125 mg/ (Syringe) 2 mls @ 1.5 mls/min IV DAILY DAO Stop: 08/04/19 08:59 Furosemide 20 mg/ Syringe 2 mls @ 4 mls/min IV BID [facility] Stop: 08/03/19 20:59 Ioversol (Optiray 320 125ml) 119 ml IV ONCE PRN PRN Reason: Interaction Checking Stop: 07/07/19 21:26 Last Admin: 07/03/19 21:28 Dose: 119 ml Documented by: Levalbuterol HCl (Xopenex 0.63 Mg/3 Ml Neb) 0.63 mg NEB Q6R [facility] Stop: 08/02/19 18:59 Last Admin: 07/04/19 08:49 Dose: 0.63 mg Documented by: Levothyroxine Sodium (Synthroid) 50 mcg PO DAILYBB [facility] Stop: 08/03/19 06:29 Last Admin: 07/04/19 06:05 Dose: 50 mcg Documented by: Losartan Potassium (Cozaar) 12.5 mg PO QAM [facility] Stop: 08/03/19 08:59 Last Admin: 07/04/19 07:52 Dose: 12.5 mg Documented by: Metoprolol Tartrate (Lopressor) 5 mg IV Q4 PRN PRN Reason: heart rate above 110 beats per minute Stop: 08/02/19 19:59 Montelukast Sodium (Singulair) 10 mg PO QAM [facility] Stop: 08/03/19 08:59 Last Admin: 07/04/19 07:50 Dose: 10 mg Documented by: Ondansetron HCl (Zofran) 4 mg IV Q6H PRN PRN Reason: Nausea Stop: 08/02/19 16:56 Polyethylene Glycol (Miralax Powder Packet) 17 gm PO DAILY PRN PRN Reason: Constipation Stop: 08/02/19 16:56 Venlafaxine HCl (Effexor Extended Release) 150 mg PO QAM [facility] Stop: 08/03/19 08:59 Last Admin: 07/04/19 07:54 Dose: 150 mg Documented by: MCV 85.8 MCH 28.3 MCHC 33.0 RDW Std Deviation 44.7 RDW Coeff of Stephan 14.4 Plt Count 339 MPV 11.4 H APTT 65.3 H* 54.9 H* PTT Ratio 2.4 2.0 D-Dimer Sodium Potassium Chloride Carbon Dioxide Anion Gap BUN Creatinine Est Cr Clr Drug Dosing Est GFR ( Amer) Est GFR (Non-Af Amer) BUN/Creatinine Ratio Glucose Calcium Magnesium Total Bilirubin AST ALT Alkaline Phosphatase Troponin I Total Protein Albumin Globulin Albumin/Globulin Ratio Lipase TSH 07/04/19 05:42 WBC RBC Hgb Hct MCV MCH MCHC RDW Std Deviation RDW Coeff of Stephan Plt Count MPV APTT PTT Ratio D-Dimer Sodium 140 Potassium 3.3 L Chloride 106 Carbon Dioxide 23 Anion Gap 11.0 BUN 19 H Creatinine 1.15 Est Cr Clr Drug Dosing 49.5 Est GFR ( Amer) 54.7 Est GFR (Non-Af Amer) 47.2 BUN/Creatinine Ratio 16.6 Glucose 180 H Calcium 8.3 L Magnesium 2.0 Total Bilirubin 0.7 AST 16 ALT 20 Alkaline Phosphatase 76 Troponin I Total Protein 6.9 Albumin 3.3 L Globulin 3.6 Albumin/Globulin Ratio 0.9 Lipase TSH
[2019-07-04] MEDS: HEPARIN SODIUM/DEXTROSE 25,000 UNITS/500 ML BAG IV SCH (13:17)
--- NOTE | 2019-07-04 16:42 | Hospitalist Progress Note ---
Date of Service July 04, 2019 Assessment & Plan (1) Acute respiratory failure with hypoxia: Secondary to acute heart failure exacerbation in the setting of atrial fibrillation with RVR. Continue management of atrial fibrillation with diltiazem for rate control. Cont IV Lasix. Continue anticoagulation while cardiology is considering immediate cardioversion versus elective cardioversion as an outpatient. (2) Acute diastolic heart failure: Cont Lasix. (3) Atrial fibrillation with RVR: Continue diltiazem and heparin. Awaiting cardiology recommendations for immediate cardioversion versus elective cardioversion as outpatient. The patient remains in atrial fibrillation on telemetry overnight. (4) Asthma exacerbation: Reports a history of asthma but also denies any history of pulmonary function test or methacholine challenge test to confirm the diagnosis of asthma. She is on PRN nebulizers and prednisone. Changing to IV solumedrol. Continue supplemental oxygen. (5) HTN (hypertension): Continue diltiazem. Cont losartan per home regimen. Currently at goal. (6) DVT prophylaxis: Heparin drip Full code Disposition-hospitalized for the next 2 to 3 days. Expect home when medically stable. Evelyn Ashby DO [facility] Hospitalist Subjective Significant work of breathing. Hypoxia ongoing. She is still in atrial fibrillation and significantly fatigued. Denies limitations, chest pain. Tolerating p.o. Reports feeling improved from admission. Review of Systems Review of Systems: All systems reviewed & are unremarkable except as noted in HPI & below Physical Exam Physical Exam: CONSTITUTIONAL: obese, vitals as above, generally well- appearing with some conversational dyspnea EYES: normal conjunctivae, no scleral icterus ENT: MMM RESPIRATORY: clear to auscultation bilaterally, no crackles, rales or wheezes, increased respiratory effort, slight conversational dyspnea as noted above. CARDIOVASCULAR: regular rate and rhythm, S1 and 2 heard without murmurs, gallops or rubs, no JVD, no peripheral edema GASTROINTESTINAL: normal bowel sounds, soft, nontender, nondistended MUSCULOSKELETAL: strength 5/5 throughout, head is normocephalic and atraumatic SKIN: warm and dry NEUROLOGIC: CN 2-12 grossly intact, no sensory deficit, normal cognition, no gross focal deficits. PSYCHIATRIC: alert cooperative and oriented to person, place and time. Euthymic mood, makes good eye contact, language grossly intact Results & Data Vital Signs (Past 12 Hours) Vital Signs Temp Pulse Resp BP Pulse Ox 07/04/19 15:51 36.7 C 86 20 135/83 95 07/04/19 11:43 36.8 C 80 22 129/80 92 07/04/19 08:45 71 18 93 07/04/19 08:06 92 H 22 151/85 H 93 Laboratory Results Short CBC 07/04/19 Range/Units 05:42 WBC 8.04 (4.8-10.8) K/uL Hgb 12.4 (12.0-16.0) g/dL Hct 37.6 (37-47) % Plt Count 339 (130-400) K/uL BMP 07/04/19 05:42 Sodium 140 Potassium 3.3 L Chloride 106 Carbon Dioxide 23 BUN 19 H Creatinine 1.15 Glucose 180 H Calcium 8.3 L Liver Function 07/04/19 Range/Units 05:42 Total Bilirubin 0.7 (0.2-1) mg/dl AST 16 (15-37) U/L ALT 20 (12-78) U/L Alkaline Phosphatase 76 (45-117) U/L Albumin 3.3 L (3.4-5.0) gm/dl Medications Administered Current Inpatient Medications Acetaminophen (Tylenol) 650 mg PO Q4H PRN PRN Reason: Pain or Fever Stop: 08/02/19 16:56 Albuterol (Ventolin Hfa) 2 puffs INH Q4H PRN PRN Reason: Shortness Of Breath Stop: 08/02/19 16:56 Buspirone HCl (Buspar) 10 mg PO BID [facility] Stop: 08/02/19 20:59 Last Admin: 07/04/19 07:53 Dose: 10 mg Documented by: Fluticasone Propionate (Flovent Hfa 110mch) 2 puffs INH BID DAO Stop: 08/02/19 20:59 Last Admin: 07/04/19 07:49 Dose: 2 puffs Documented by: Gabapentin (Neurontin) 300 mg PO HS [facility] Stop: 08/02/19 20:59 Last Admin: 07/03/19 21:20 Dose: 300 mg Documented by: Diltiazem HCl 125 mg/ Dextrose 125 mls @ 15 mls/hr IV .Q8H20M [facility]; Protocol Stop: 08/02/19 11:44 Last Admin: 07/04/19 14:15 Dose: 15 mg/hr, 15 mls/hr Documented by: Heparin Sodium/Dextrose (Heparin Sodium/Dextrose) 25,000 units in 500 mls @ 25 mls/hr IV .Q20H [facility]; Protocol Stop: 08/02/19 15:14 Last Admin: 07/04/19 13:17 Dose: 1,250 units/hr, 25 mls/hr Documented by: Furosemide 20 mg/ Syringe 2 mls @ 4 mls/min IV BID [facility] Stop: 08/03/19 20:59 Ioversol (Optiray 320 125ml) 119 ml IV ONCE PRN PRN Reason: Interaction Checking Stop: 07/07/19 21:26 Last Admin: 07/03/19 21:28 Dose: 119 ml Documented by: Levalbuterol HCl (Xopenex 0.63 Mg/3 Ml Neb) 0.63 mg NEB Q6R [facility] Stop: 08/02/19 18:59 Last Admin: 07/04/19 13:40 Dose: Not Given Documented by: Levothyroxine Sodium (Synthroid) 50 mcg PO DAILYBB [facility] Stop: 08/03/19 06:29 Last Admin: 07/04/19 06:05 Dose: 50 mcg Documented by: Losartan Potassium (Cozaar) 12.5 mg PO [facility] Stop: 08/03/19 08:59 Last Admin: 07/04/19 07:52 Dose: 12.5 mg Documented by: Metoprolol Tartrate (Lopressor) 5 mg IV Q4 PRN PRN Reason: heart rate above 110 beats per minute Stop: 08/02/19 19:59 Montelukast Sodium (Singulair) 10 mg PO [facility] Stop: 08/03/19 08:59 Last Admin: 07/04/19 07:50 Dose: 10 mg Documented by: Ondansetron HCl (Zofran) 4 mg IV Q6H PRN PRN Reason: Nausea Stop: 08/02/19 16:56 Polyethylene Glycol (Miralax Powder Packet) 17 gm PO DAILY PRN PRN Reason: Constipation Stop: 08/02/19 16:56 Venlafaxine HCl (Effexor Extended Release) 150 mg PO [facility] Stop: 08/03/19 08:59 Last Admin: 07/04/19 07:54 Dose: 150 mg Documented by:
[2019-07-04] MEDS ORDERED: LEVALBUTEROL HCL 0.63 MG/3 ML NEB NEB PRN (18:39)
[2019-07-04] MEDS: FUROSEMIDE 20 MG in SYRINGE 0 ML IV SCH (20:13)
[2019-07-04] MEDS: GABAPENTIN 300 MG CAP PO SCH (20:14)
[2019-07-05] MEDS: LEVOTHYROXINE SODIUM 50 MCG TABLET PO SCH (06:15)
[2019-07-05] MEDS: FLUTICASONE HFA 110MCG INHALER INH SCH ×2 (07:37→20:35)
[2019-07-05] MEDS: LOSARTAN POTASSIUM 25 MG TAB PO SCH (07:38)
[2019-07-05] MEDS: VENLAFAXINE HCL XR 150 MG CAPXR PO SCH (07:38)
[2019-07-05] MEDS: MONTELUKAST SODIUM 10 MG TABLET PO SCH (07:39)
[2019-07-05 07:40] LABS: Hematocrit (blood only) 40.1 % (37-47); Hemoglobin 13.3 g/dL (12.0-16.0); Mean Corpuscular Hgb Conc 33.2 g/dL (32-36); Mean Corpuscular Volume 87.4 fL (80-100); Mean Platelet Volume 11.6 fL (7.4-10.4); Platelet Count 382 K/uL (130-400); RDW Coefficient of Variation 14.7 % (11.5-14.5); RDW Standard Deviation 46.3 fL (36.4-46.3); Red Blood Count 4.59 M/uL (4.2-5.4); White Blood Count 14.99 K/uL (4.8-10.8)
[2019-07-05] MEDS: FUROSEMIDE 20 MG in SYRINGE 0 ML IV SCH (07:40)
[2019-07-05] MEDS: ACETAMINOPHEN 325 MG TAB PO PRN (07:45)
[2019-07-05 08:12] LABS: Creatinine Clr Calc Pharmacy 38.4 ml/min; Est GFR (Non-African American) 34.5; Potassium 3.4 mmol/L (3.5-5.1)
[2019-07-05 08:13] LABS: Partial Thromboplastin Ratio 2.1
[2019-07-05] MEDS: dilTIAZem HCL 125 MG in DEXTROSE 5% 100 ML IV SCH ×2 (08:43→17:42)
[2019-07-05] MEDS ORDERED: methylPREDNISolone 125 MG in SYRINGE 0 ML IV SCH (09:00)
[2019-07-05] MEDS: methylPREDNISolone 40 MG in SYRINGE 0 ML IV SCH ×2 (09:36→17:52)
[2019-07-05] MEDS: HEPARIN SODIUM/DEXTROSE 25,000 UNITS/500 ML BAG IV SCH (09:38)
--- NOTE | 2019-07-05 12:19 | Cardiology Progress Note ---
Date of Service July 05, 2019 Assessment & Plan (1) Acute respiratory failure with hypoxia: (2) Asthma exacerbation: (3) Atrial fibrillation with RVR: (4) Volume overload: The patient is markedly improved. I will discontinue the IV Lasix. Continue the diltiazem drip to control her heart rates. Eventually she will have to be switched over to p.o. medications. Consideration has to be given to either immediate cardioversion or sending the patient home for several weeks on anticoagulation to return to have an elective cardioversion. Subjective Feeling much improved today. Less short of breath. She remains in atrial fibrillation but her heart rates are controlled. Review of Systems Review of Systems: All systems reviewed & are unremarkable except as noted in HPI & below Nothing additional. Physical Exam Physical Exam: General: no acute distress and stated age Head: normocephalic, no masses, lesions, tenderness or abnormalities Eyes: conjunctiva are pink and non-injected, sclera clear Neck: supple, no adenopathy, no bruits, normal jugular venous pulse, no hepatojugular reflux Chest: normal shape and normal respiratory effort Lungs: clear to auscultation and percussion Cardiac Exam: - irregular rate & rhythm, no murmurs gallops or rubs - normal S1, normal S2 Pulses: 2(+) throughout Abdomen: abdomen soft, non-tender, no abnormal masses and no hepatosplenomegaly Musculoskeletal: no gait disturbance, no joint inflammation, no deforming arthritis Extremities: no edema and no cyanosis Neuro: grossly normal exam Results & Data Vital Signs (Past 12 Hours) Vital Signs Temp Pulse Resp BP Pulse Ox 07/05/19 11:24 76 18 131/92 94 07/05/19 07:11 36.4 C L 92 H 22 147/81 H 95 07/05/19 04:00 36.5 C 76 20 150/97 H 94 Laboratory Results Laboratory Results - last 24 hr 07/05/19 07/05/19 07/05/19 06:50 06:50 06:50 WBC 14.99 H RBC 4.59 Hgb 13.3 Hct 40.1 MCV 87.4 MCH 29.0 MCHC 33.2 RDW Std Deviation 46.3 RDW Coeff of Stephan 14.7 H Plt Count 382 MPV 11.6 H APTT 57.0 H* PTT Ratio 2.1 Sodium 139 Potassium 3.4 L Chloride 104 Carbon Dioxide 24 Anion Gap 11.0 BUN 30 H D Creatinine 1.49 H D Est Cr Clr Drug Dosing 38.4 Est GFR ( Amer) 40.0 Est GFR (Non-Af Amer) 34.5 BUN/Creatinine Ratio 20.0 Glucose 163 H Calcium 9.0 Medications Administered Current Inpatient Medications Acetaminophen (Tylenol) 650 mg PO Q4H PRN PRN Reason: Pain or Fever Stop: 08/02/19 16:56 Last Admin: 07/05/19 07:45 Dose: 650 mg Documented by: Albuterol (Ventolin Hfa) 2 puffs INH Q4H PRN PRN Reason: Shortness Of Breath Stop: 08/02/19 16:56 Buspirone HCl (Buspar) 10 mg PO BID [facility] Stop: 08/02/19 20:59 Last Admin: 07/05/19 07:38 Dose: 10 mg Documented by: Fluticasone Propionate (Flovent Hfa 110mch) 2 puffs INH BID DAO Stop: 08/02/19 20:59 Last Admin: 07/05/19 07:37 Dose: 2 puffs Documented by: Gabapentin (Neurontin) 300 mg PO HS DAO Stop: 08/02/19 20:59 Last Admin: 07/04/19 20:14 Dose: 300 mg Documented by: Diltiazem HCl 125 mg/ Dextrose 125 mls @ 15 mls/hr IV .Q8H20M [facility]; Protocol Stop: 08/02/19 11:44 Last Admin: 07/05/19 08:43 Dose: 15 mg/hr, 15 mls/hr Documented by: Heparin Sodium/Dextrose (Heparin Sodium/Dextrose) 25,000 units in 500 mls @ 25 mls/hr IV .Q20H [facility]; Protocol Stop: 08/02/19 15:14 Last Admin: 07/05/19 09:38 Dose: 1,250 units/hr, 25 mls/hr Documented by: Methylprednisolone 40 mg/ (Syringe) 0.64 mls @ 1.5 mls/min IV Q8H [facility] Stop: 08/04/19 08:29 Last Admin: 07/05/19 09:36 Dose: 1.5 mls/min Documented by: Ioversol (Optiray 320 125ml) 119 ml IV ONCE PRN PRN Reason: Interaction Checking Stop: 07/07/19 21:26 Last Admin: 07/03/19 21:28 Dose: 119 ml Documented by: Levalbuterol HCl (Xopenex 0.63 Mg/3 Ml Neb) 0.63 mg NEB Q6R PRN PRN Reason: Shortness Of Breath Or Wheezing Stop: 08/02/19 18:59 [facility]: 08/03/19 06:29 Last Admin: 07/05/19 06:15 Dose: 50 mcg Documented by: Losartan Potassium (Cozaar) 12.5 mg PO [facility] Stop: 08/03/19 08:59 Last Admin: 07/05/19 07:38 Dose: 12.5 mg Documented by: Metoprolol Tartrate (Lopressor) 5 mg IV Q4 PRN PRN Reason: heart rate above 110 beats per minute Stop: 08/02/19 19:59 Montelukast Sodium (Singulair) 10 mg PO [facility] Stop: 08/03/19 08:59 Last Admin: 07/05/19 07:39 Dose: 10 mg Documented by: Ondansetron HCl (Zofran) 4 mg IV Q6H PRN PRN Reason: Nausea Stop: 08/02/19 16:56 Polyethylene Glycol (Miralax Powder Packet) 17 gm PO DAILY PRN PRN Reason: Constipation Stop: 08/02/19 16:56 Venlafaxine HCl (Effexor Extended Release) 150 mg PO [facility] Stop: 08/03/19 08:59 Last Admin: 07/05/19 07:38 Dose: 150 mg Documented by:
--- NOTE | 2019-07-05 12:36 | Hospitalist Progress Note ---
Date of Service July 05, 2019 Assessment & Plan (1) Acute respiratory failure with hypoxia: Secondary to acute heart failure exacerbation in the setting of atrial fibrillation with RVR. Continue management of atrial fibrillation with diltiazem for rate control. No further IV Lasix per cardiology at this point. Continue anticoagulation while cardiology is considering immediate cardioversion versus elective cardioversion as an outpatient. (2) Acute diastolic heart failure: Improved from a breathing standpoint. Lasix discontinued by cardiology today. Continue good blood pressure control efforts. Losartan held but diltiazem running. Acute kidney injury is present so no further p.o. Lasix is recommended at this time. Continue to trend BMP. (3) Atrial fibrillation with RVR: Continue diltiazem and heparin. Awaiting cardiology recommendations for immediate cardioversion versus elective cardioversion as outpatient. The patient remains in atrial fibrillation on telemetry overnight. (4) Acute kidney injury: Likely related to atrial fibrillation with RVR in addition to diuretics today for treatment of CHF exacerbation. Holding Lasix at this time. We will also hold losartan at this time. (5) Asthma exacerbation: Reports a history of asthma but also denies any history of pulmonary function test or methacholine challenge test to confirm the diagnosis of asthma. She is on PRN nebulizers and Solu-Medrol 40 mg every 8. Continue this for another day and consider transition to prednisone. Wheezing is resolved. She is improved from a breathing standpoint today. Continue supplemental oxygen. (6) HTN (hypertension): Continue diltiazem. Losartan on hold in setting of KALEE. Currently at goal. (7) DVT prophylaxis: Heparin drip Full code Disposition-supplies for the next 2 to 3 days. Expect home when medically stable. Evelyn Ashby, [facility] Subjective Improved today, feels less short of breath. Denies coughing. Reports that she is doing less belly breathing, however, I am seeing some of this going during her conversation in addition to conversational dyspnea to a certain extent. She is still hypoxic. Telemetry review reveals consistent atrial fibrillation with PVCs with a rate of 70s to 80s overnight leukocytosis was noted with an increase of 8-15K likely as a result of steroids. Review of Systems Review of Systems: All systems reviewed & are unremarkable except as noted in HPI & below Physical Exam Physical Exam: CONSTITUTIONAL: obese, vitals as above, generally well- appearing with some conversational dyspnea that is improved since yesterday. EYES: normal conjunctivae, no scleral icterus ENT: MMM RESPIRATORY: clear to auscultation bilaterally, no crackles, rales or wheezes, normal respiratory effort, slight conversational dyspnea as noted above. CARDIOVASCULAR: regular rate and rhythm, S1 and 2 heard without murmurs, gallops or rubs, no JVD, no peripheral edema GASTROINTESTINAL: normal bowel sounds, soft, nontender, nondistended MUSCULOSKELETAL: strength 5/5 throughout, head is normocephalic and atraumatic SKIN: warm and dry NEUROLOGIC: CN 2-12 grossly intact, no sensory deficit, normal cognition, no gross focal deficits. PSYCHIATRIC: alert cooperative and oriented to person, place and time. Euthymic mood, makes good eye contact, language grossly intact Results & Data Vital Signs (Past 12 Hours) Vital Signs Temp Pulse Resp BP Pulse Ox 07/05/19 11:24 76 18 131/92 94 07/05/19 07:11 36.4 C L 92 H 22 147/81 H 95 07/05/19 04:00 36.5 C 76 20 150/97 H 94 Laboratory Results Short CBC 07/05/19 Range/Units 06:50 WBC 14.99 H (4.8-10.8) K/uL Hgb 13.3 (12.0-16.0) g/dL Hct 40.1 (37-47) % Plt Count 382 (130-400) K/uL BMP 07/05/19 06:50 Sodium 139 Potassium 3.4 L Chloride 104 Carbon Dioxide 24 BUN 30 H D Creatinine 1.49 H D Glucose 163 H Calcium 9.0 Medications Administered Current Inpatient Medications Acetaminophen (Tylenol) 650 mg PO Q4H PRN PRN Reason: Pain or Fever Stop: 08/02/19 16:56 Last Admin: 07/05/19 07:45 Dose: 650 mg Documented by: Albuterol (Ventolin Hfa) 2 puffs INH Q4H PRN PRN Reason: Shortness Of Breath Stop: 08/02/19 16:56 Buspirone HCl (Buspar) 10 mg PO BID DAO Stop: 08/02/19 20:59 Last Admin: 07/05/19 07:38 Dose: 10 mg Documented by: Fluticasone Propionate (Flovent Hfa 110mch) 2 puffs INH BID DAO Stop: 08/02/19 20:59 Last Admin: 07/05/19 07:37 Dose: 2 puffs Documented by: Gabapentin (Neurontin) 300 mg PO HS [facility] Stop: 08/02/19 20:59 Last Admin: 07/04/19 20:14 Dose: 300 mg Documented by: Diltiazem HCl 125 mg/ Dextrose 125 mls @ 15 mls/hr IV .Q8H20M [facility]; Protocol Stop: 08/02/19 11:44 Last Admin: 07/05/19 08:43 Dose: 15 mg/hr, 15 mls/hr Documented by: Heparin Sodium/Dextrose (Heparin Sodium/Dextrose) 25,000 units in 500 mls @ 25 mls/hr IV .Q20H [facility]; Protocol Stop: 08/02/19 15:14 Last Admin: 07/05/19 09:38 Dose: 1,250 units/hr, 25 mls/hr Documented by: Methylprednisolone 40 mg/ (Syringe) 0.64 mls @ 1.5 mls/min IV Q8H [facility] Stop: 08/04/19 08:29 Last Admin: 07/05/19 09:36 Dose: 1.5 mls/min Documented by: Ioversol (Optiray 320 125ml) 119 ml IV ONCE PRN PRN Reason: Interaction Checking Stop: 07/07/19 21:26 Last Admin: 07/03/19 21:28 Dose: 119 ml Documented by: Levalbuterol HCl (Xopenex 0.63 Mg/3 Ml Neb) 0.63 mg NEB Q6R PRN PRN Reason: Shortness Of Breath Or Wheezing Stop: 08/02/19 18:59 Levothyroxine S[facility] ([facility]) [facility] Stop: 08/03/19 06:29 Last Admin: 07/05/19 06:15 Dose: 50 mcg Documented by: Losartan Potassium (Cozaar) 12.5 mg PO [facility] Stop: 08/03/19 08:59 Last Admin: 07/05/19 07:38 Dose: 12.5 mg Documented by: Metoprolol Tartrate (Lopressor) 5 mg IV Q4 PRN PRN Reason: heart rate above 110 beats per minute Stop: 08/02/19 19:59 Montelukast Sodium (Singulair) 10 mg PO [facility] Stop: 08/03/19 08:59 Last Admin: 07/05/19 07:39 Dose: 10 mg Documented by: Ondansetron HCl (Zofran) 4 mg IV Q6H PRN PRN Reason: Nausea Stop: 08/02/19 16:56 Polyethylene Glycol (Miralax Powder Packet) 17 gm PO DAILY PRN PRN Reason: Constipation Stop: 08/02/19 16:56 Venlafaxine HCl (Effexor Extended Release) 150 mg PO [facility] Stop: 08/03/19 08:59 Last Admin: 07/05/19 07:38 Dose: 150 mg Documented by:
[2019-07-05] MEDS: GABAPENTIN 300 MG CAP PO SCH (20:36)
[2019-07-06] MEDS: dilTIAZem HCL 125 MG in DEXTROSE 5% 100 ML IV SCH ×2 (00:14→08:04)
[2019-07-06] MEDS: methylPREDNISolone 40 MG in SYRINGE 0 ML IV SCH ×2 (00:52→18:58)
[2019-07-06] MEDS: LEVOTHYROXINE SODIUM 50 MCG TABLET PO SCH (06:04)
[2019-07-06] MEDS: HEPARIN SODIUM/DEXTROSE 25,000 UNITS/500 ML BAG IV SCH (06:05)
[2019-07-06 06:17] LABS: Hematocrit (blood only) 38.3 % (37-47); Hemoglobin 12.6 g/dL (12.0-16.0); Mean Corpuscular Hemoglobin 28.6 pg (25-34); Mean Corpuscular Hgb Conc 32.9 g/dL (32-36); Mean Corpuscular Volume 86.8 fL (80-100); Mean Platelet Volume 10.8 fL (7.4-10.4); Platelet Count 288 K/uL (130-400); RDW Coefficient of Variation 14.5 % (11.5-14.5); RDW Standard Deviation 45.6 fL (36.4-46.3); Red Blood Count 4.41 M/uL (4.2-5.4); White Blood Count 8.18 K/uL (4.8-10.8)
[2019-07-06 06:48] LABS: Partial Thromboplastin Ratio 1.8
[2019-07-06 06:49] LABS: BUN Creatinine Ratio 24.2 (10-20); Calcium 8.8 mg/dl (8.5-10.1); Creatinine Clr Calc Pharmacy 42.9 ml/min; Est GFR (African American) 45.4; Est GFR (Non-African American) 39.2; Potassium 3.5 mmol/L (3.5-5.1)
[2019-07-06 06:56] LABS: Partial Thromboplastin Time 48.8 Seconds (21.0-31.0)
[2019-07-06] MEDS: MONTELUKAST SODIUM 10 MG TABLET PO SCH (08:01)
[2019-07-06] MEDS: VENLAFAXINE HCL XR 150 MG CAPXR PO SCH (08:01)
[2019-07-06] MEDS: FLUTICASONE HFA 110MCG INHALER INH SCH ×2 (08:02→20:55)
--- NOTE | 2019-07-06 09:29 | Hospitalist Progress Note ---
Date of Service July 06, 2019 Assessment & Plan (1) Acute respiratory failure with hypoxia: Secondary to acute heart failure exacerbation in the setting of atrial fibrillation with RVR. Continue management of atrial fibrillation with diltiazem for rate control. Cont IV Lasix. Continue anticoagulation while cardiology is considering immediate cardioversion versus elective cardioversion as an outpatient. Cannot cardiovert until pulmonary status is improved and more stable, ideally off oxygen. (2) Acute diastolic heart failure: Lasix held in setting of KALEE. Cont low sodium diet. (3) Atrial fibrillation with RVR: Continue diltiazem and heparin. Awaiting cardiology recommendations for immediate cardioversion versus elective cardioversion as outpatient. The patient remains in atrial fibrillation on telemetry overnight. (4) Asthma exacerbation: Reports a history of asthma but also denies any history of pulmonary function test or methacholine challenge test to confirm the diagnosis of asthma. She is on PRN nebulizers and solumedrol. Switch to short course of prednisone. Continue supplemental oxygen. (5) HTN (hypertension): Continue diltiazem. (6) DVT prophylaxis: Heparin drip Full code Disposition-hospitalized for the next 2 to 3 days while pulmonary status improves. Expect home when medically stable. Evelyn Ashby DO [facility] Hospitalist Subjective Improved from a breathing standpoint Denies chest pain still hypoxic and afib on tele overnight 6-beat run of NSVT overnight KALEE improving. Review of Systems Review of Systems: All systems reviewed & are unremarkable except as noted in HPI & below Physical Exam Physical Exam: CONSTITUTIONAL: obese, vitals as above, generally well- appearing, no conversational dyspnea noted. EYES: normal conjunctivae, no scleral icterus ENT: MMM RESPIRATORY: no wheezing or rales, crackles at right base. Normal respiratory effort on supplemental oxygen. CARDIOVASCULAR: irregular rate and rhythm, S1 and 2 heard without murmurs, gallops or rubs, no JVD, no peripheral edema GASTROINTESTINAL: normal bowel sounds, soft, nontender, nondistended MUSCULOSKELETAL: strength 5/5 throughout, head is normocephalic and atraumatic SKIN: warm and dry NEUROLOGIC: CN 2-12 grossly intact, no sensory deficit, normal cognition, no gross focal deficits. PSYCHIATRIC: alert cooperative and oriented to person, place and time. Euthymic mood, makes good eye contact, language grossly intact Results & Data Vital Signs (Past 12 Hours) Vital Signs Temp Pulse Pulse Resp BP Pulse Ox 07/06/19 06:52 36.5 C 77 19 130/73 93 07/06/19 03:15 36.5 C 73 18 145/85 H 94 07/05/19 22:40 37 C 80 16 120/73 93 07/05/19 22:20 85 Laboratory Results Short CBC 07/06/19 Range/Units 06:01 WBC 8.18 (4.8-10.8) K/uL Hgb 12.6 (12.0-16.0) g/dL Hct 38.3 (37-47) % Plt Count 288 (130-400) K/uL BMP 07/06/19 06:01 Sodium 140 Potassium 3.5 Chloride 104 Carbon Dioxide 26 BUN 32 H Creatinine 1.34 H Glucose 186 H Calcium 8.8 Medications Administered Current Inpatient Medications Acetaminophen (Tylenol) 650 mg PO Q4H PRN PRN Reason: Pain or Fever Stop: 08/02/19 16:56 Last Admin: 07/05/19 07:45 Dose: 650 mg Documented by: Albuterol (Ventolin Hfa) 2 puffs INH Q4H PRN PRN Reason: Shortness Of Breath Stop: 08/02/19 16:56 Buspirone HCl (Buspar) 10 mg PO BID [facility] Stop: 08/02/19 20:59 Last Admin: 07/06/19 08:01 Dose: 10 mg Documented by: Fluticasone Propionate (Flovent Hfa 110mch) 2 puffs INH BID [facility] Stop: 08/02/19 20:59 Last Admin: 07/06/19 08:02 Dose: 2 puffs Documented by: Gabapentin (Neurontin) 300 mg PO HS [facility] Stop: 08/02/19 20:59 Last Admin: 07/05/19 20:36 Dose: 300 mg Documented by: Diltiazem HCl 125 mg/ Dextrose 125 mls @ 15 mls/hr IV .Q8H20M [facility]; Protocol Stop: 08/02/19 11:44 Last Admin: 07/06/19 08:04 Dose: 15 mg/hr, 15 mls/hr Documented by: Heparin Sodium/Dextrose (Heparin Sodium/Dextrose) 25,000 units in 500 mls @ 25 mls/hr IV .Q20H [facility]; Protocol Stop: 08/02/19 15:14 Last Admin: 07/06/19 06:05 Dose: 1,250 units/hr, 25 mls/hr Documented by: Methylprednisolone 40 mg/ (Syringe) 0.64 mls @ 1.5 mls/min IV Q8H [facility] Stop: 08/04/19 08:29 Last Admin: 07/06/19 00:52 Dose: 1.5 mls/min Documented by: Ioversol (Optiray 320 125ml) 119 ml IV ONCE PRN PRN Reason: Interaction Checking Stop: 07/07/19 21:26 Last Admin: 07/03/19 21:28 Dose: 119 ml Documented by: Levalbuterol HCl (Xopenex 0.63 Mg/3 Ml Neb) 0.63 mg NEB Q6R PRN PRN Reason: Shortness Of Breath Or Wheezing Stop: 08/02/19 18:59 Last Admin: 07/05/19 17:21 Dose: 0.63 mg Documented by: Levothyroxine Sodium (Synthroid) [facility] Stop: 08/03/19 06:29 Last Admin: 07/06/19 06:04 Dose: 50 mcg Documented by: Losartan Potassium (Cozaar) 12.5 mg PO [facility] Stop: 08/03/19 08:59 Last Admin: 07/05/19 07:38 Dose: 12.5 mg Documented by: Metoprolol Tartrate (Lopressor) 5 mg IV Q4 PRN PRN Reason: heart rate above 110 beats per minute Stop: 08/02/19 19:59 Montelukast Sodium (Singulair) 10 mg PO [facility] Stop: 08/03/19 08:59 Last Admin: 07/06/19 08:01 Dose: 10 mg Documented by: Ondansetron HCl (Zofran) 4 mg IV Q6H PRN PRN Reason: Nausea Stop: 08/02/19 16:56 Polyethylene Glycol (Miralax Powder Packet) 17 gm PO DAILY PRN PRN Reason: Constipation Stop: 08/02/19 16:56 Venlafaxine HCl (Effexor Extended Release) [facility] Stop: 08/03/19 08:59 Last Admin: 07/06/19 08:01 Dose: 150 mg Documented by:
[2019-07-06] MEDS ORDERED: predniSONE 20 MG TAB PO ONE ×2 (09:45)
--- NOTE | 2019-07-06 10:20 | Cardiology Progress Note ---
Date of Service July 06, 2019 Assessment & Plan (1) Acute respiratory failure with hypoxia: (2) Asthma exacerbation: (3) Atrial fibrillation with RVR: (4) Volume overload: The patient is slowly improving. She is still hypoxic and requiring oxygen. I will switch her over to oral anticoagulation and diltiazem. Although her exam does not suggest congestive heart failure I will give her another 20 mg of IV Lasix today. It may take another day or so before her hypoxia improves. Subjective The patient feels better but is still hypoxic on room air. Review of Systems Review of Systems: All systems reviewed & are unremarkable except as noted in HPI & below Nothing additional to add. Physical Exam Physical Exam: General: no acute distress and stated age Head: normocephalic, no masses, lesions, tenderness or abnormalities Eyes: conjunctiva are pink and non-injected, sclera clear Neck: supple, no adenopathy, no bruits, normal jugular venous pulse, no hepatojugular reflux Chest: normal shape and normal respiratory effort Lungs: clear to auscultation and percussion Cardiac Exam: - irregular rate & rhythm, no murmurs gallops or rubs - normal S1, normal S2 Pulses: 2(+) throughout Abdomen: abdomen soft, non-tender, no abnormal masses and no hepatosplenomegaly Musculoskeletal: no gait disturbance, no joint inflammation, no deforming arthritis Extremities: no edema and no cyanosis Neuro: grossly normal exam Results & Data Vital Signs (Past 12 Hours) Vital Signs Temp Pulse Pulse Resp BP Pulse Ox 07/06/19 06:52 36.5 C 77 19 130/73 93 07/06/19 03:15 36.5 C 73 18 145/85 H 94 07/05/19 22:40 37 C 80 16 120/73 93 07/05/19 22:20 85 Laboratory Results Laboratory Results - last 24 hr 07/06/19 07/06/19 07/06/19 06:01 06:01 06:01 WBC 8.18 RBC 4.41 Hgb 12.6 Hct 38.3 MCV 86.8 MCH 28.6 MCHC 32.9 RDW Std Deviation 45.6 RDW Coeff of Stephan 14.5 Plt Count 288 MPV 10.8 H APTT 48.8 H* PTT Ratio 1.8 Sodium 140 Potassium 3.5 Chloride 104 Carbon Dioxide 26 Anion Gap 10.0 BUN 32 H Creatinine 1.34 H Est Cr Clr Drug Dosing 42.9 Est GFR ( Amer) 45.4 Est GFR (Non-Af Amer) 39.2 BUN/Creatinine Ratio 24.2 H Glucose 186 H Calcium 8.8 Medications Administered Current Inpatient Medications Acetaminophen (Tylenol) 650 mg PO Q4H PRN PRN Reason: Pain or Fever Stop: 08/02/19 16:56 Last Admin: 07/05/19 07:45 Dose: 650 mg Documented by: Albuterol (Ventolin Hfa) 2 puffs INH Q4H PRN PRN Reason: Shortness Of Breath Stop: 08/02/19 16:56 Apixaban (Eliquis) 5 mg PO BID [facility] Stop: 08/05/19 10:14 Buspirone HCl (Buspar) 10 mg PO BID [facility] Stop: 08/02/19 20:59 Last Admin: 07/06/19 08:01 Dose: 10 mg Documented by: Diltiazem HCl (Cardizem) 60 mg PO QID [facility] Stop: 08/05/19 12:59 Fluticasone Propionate (Flovent Hfa 110mch) 2 puffs INH BID [facility] Stop: 08/02/19 20:59 Last Admin: 07/06/19 08:02 Dose: 2 puffs Documented by: Gabapentin (Neurontin) 300 mg PO HS [facility] Stop: 08/02/19 20:59 Last Admin: 07/05/19 20:36 Dose: 300 mg Documented by: Furosemide 20 mg/ Syringe 2 mls @ 4 mls/min IV ONE ONE Stop: 07/06/19 10:15 Ioversol (Optiray 320 125ml) 119 ml IV ONCE PRN PRN Reason: Interaction Checking Stop: 07/07/19 21:26 Last Admin: 07/03/19 21:28 Dose: 119 ml Documented by: Levalbuterol HCl (Xopenex 0.63 Mg/3 Ml Neb) 0.63 mg NEB Q6R PRN PRN Reason: Shortness Of Breath Or Wheezing Stop: 08/02/19 18:59 Last Admin: 07/05/19 17:21 Dose: 0.63 mg Documented by: Levothyroxine Sodium (Synthroid) 50 mcg PO DAILYBB [facility] Stop: 08/03/19 06:29 Last Admin: 09/16/19 06:04 Dose: 50 mcg Documented by: Losartan Potassium (Cozaar) [facility] Stop: 08/03/19 08:59 Last Admin: 07/05/19 07:38 Dose: 12.5 mg Documented by: Metoprolol Tartrate (Lopressor) 5 mg IV Q4 PRN PRN Reason: heart rate above 110 beats per minute Stop: 08/02/19 19:59 Montelukast Sodium (Singulair) 10 mg PO [facility] Stop: 08/03/19 08:59 Last Admin: 07/06/19 08:01 Dose: 10 mg Documented by: Ondansetron HCl (Zofran) 4 mg IV Q6H PRN PRN Reason: Nausea Stop: 08/02/19 16:56 Polyethylene Glycol (Miralax Powder Packet) 17 gm PO DAILY PRN PRN Reason: Constipation Stop: 08/02/19 16:56 Prednisone (Prednisone) 40 mg PO DAILY [facility] Stop: 08/06/19 08:59 Venlafaxine HCl (Effexor Extended Release) 150 mg PO [facility] Stop: 08/03/19 08:59 Last Admin: 07/06/19 08:01 Dose: 150 mg Documented by:
[2019-07-06] MEDS: FUROSEMIDE 20 MG in SYRINGE 0 ML IV ONE ×2 (11:36→11:37)
[2019-07-06] MEDS: APIXABAN 5 MG TABLET PO SCH ×3 (11:36→20:54)
[2019-07-06] MEDS: dilTIAZem HCl 60 MG TAB PO SCH ×3 (13:16→20:52)
[2019-07-06] MEDS: ACETAMINOPHEN 325 MG TAB PO PRN (19:50)
[2019-07-06] MEDS: GABAPENTIN 300 MG CAP PO SCH (20:53)
[2019-07-07] MEDS: LEVOTHYROXINE SODIUM 50 MCG TABLET PO SCH (06:24)
[2019-07-07 06:57] LABS: Hematocrit (blood only) 41.9 % (37-47); Hemoglobin 13.7 g/dL (12.0-16.0); Mean Corpuscular Hemoglobin 28.2 pg (25-34); Mean Corpuscular Hgb Conc 32.7 g/dL (32-36); Mean Corpuscular Volume 86.4 fL (80-100); Mean Platelet Volume 10.7 fL (7.4-10.4); Platelet Count 257 K/uL (130-400); RDW Coefficient of Variation 14.4 % (11.5-14.5); Red Blood Count 4.85 M/uL (4.2-5.4); White Blood Count 6.01 K/uL (4.8-10.8)
[2019-07-07 07:22] LABS: Appearance Urine Clear (Clear); Bacteria Urine Automated Negative (Negative); Bilirubin Urine Negative (Negative); Blood Urine Negative (Negative); Color Urine Yellow; Epithelial Cell Urine Auto >30 /lpf (0-5); Glucose Urine UA Trace (Negative); Ketones Urine Negative (Negative); Leukocyte Esterase Urine 1+ (Negative); Nitrite Urine Negative (Negative); Protein Urine Negative (Negative); RBC Urine Automated 0-4 /hpf (0-4); Specific Gravity Urine 1.017 (1.000-1.030); Urobilinogen Urine Negative (Negative); pH Urine 6.5 (4.5-7.5)
[2019-07-07 07:42] LABS: BUN Creatinine Ratio 26.5 (10-20); Calcium 8.2 mg/dl (8.5-10.1); Creatinine Clr Calc Pharmacy 59.4 ml/min; Est GFR (Non-African American) 58.7; Magnesium 2.5 mg/dl (1.8-2.4); Potassium 3.3 mmol/L (3.5-5.1)
[2019-07-07] MEDS: ACETAMINOPHEN 325 MG TAB PO PRN (07:56)
[2019-07-07] MEDS: APIXABAN 5 MG TABLET PO SCH ×2 (07:59→20:44)
[2019-07-07] MEDS: VENLAFAXINE HCL XR 150 MG CAPXR PO SCH (07:59)
[2019-07-07] MEDS: MONTELUKAST SODIUM 10 MG TABLET PO SCH (08:00)
[2019-07-07] MEDS: dilTIAZem HCl 60 MG TAB PO SCH ×4 (08:00→20:42)
[2019-07-07] MEDS: FLUTICASONE HFA 110MCG INHALER INH SCH ×2 (08:00→20:43)
[2019-07-07] MEDS: predniSONE 20 MG TAB PO SCH (08:00)
[2019-07-07] MEDS: POTASSIUM CHLORIDE 20 MEQ TABCR PO SCH ×2 (08:54→16:10)
--- NOTE | 2019-07-07 09:30 | Hospitalist Progress Note ---
Date of Service July 07, 2019 Assessment & Plan (1) Acute respiratory failure with hypoxia: Resolved, secondary to acute heart failure exacerbation in the setting of atrial fibrillation with RVR. Titrating oxygen off as tolerated. (2) Acute diastolic heart failure: Lasix held in setting of KALEE. Cont low sodium diet. (3) Atrial fibrillation with RVR: Cont diltiazem and eliquis. Awaiting cardiology recommendations for immediate cardioversion versus elective cardioversion as outpatient. The patient remains in atrial fibrillation on telemetry overnight. (4) Asthma exacerbation: Cont with short course of prednisone. PRN nebs, but no wheezing. Questionable diagnosis of asthma as no prior PFTs performed per patient. PCP to follow-up (5) HTN (hypertension): Losartan was held in setting of KALEE which has improved. Losartan restart as this has resolved and BP has increased. (6) Acute kidney injury: resolved (7) DVT prophylaxis: Eliquis Full code Disposition-per Cardio recommendations. Evelyn Ashby DO [facility] Hospitalist Subjective doing well Breathing is improved and not requiring oxygen for support any longer Lungs are now clear to auscultation where there were crackles yesterday on exam. Hypertensive off Losartan which was held in setting of KALEE PVCs on telemetry review Denies chest pain or other symptoms at this time Ambulating at baseline. Review of Systems Review of Systems: All systems reviewed & are unremarkable except as noted in HPI & below Physical Exam Physical Exam: CONSTITUTIONAL: obese, vitals as above, generally well- appearing, no conversational dyspnea noted. EYES: normal conjunctivae, no scleral icterus ENT: MMM RESPIRATORY: Clear to auscultation bilaterally. No crackles, wheezes or rales. Normal respiratory effort on supplemental oxygen. CARDIOVASCULAR: irregular rate and rhythm, S1 and 2 heard without murmurs, gallops or rubs, no JVD, no peripheral edema GASTROINTESTINAL: normal bowel sounds, soft, nontender, nondistended MUSCULOSKELETAL: strength 5/5 throughout, head is normocephalic and atraumatic SKIN: warm and dry NEUROLOGIC: CN 2-12 grossly intact, no sensory deficit, normal cognition, no gross focal deficits. PSYCHIATRIC: alert cooperative and oriented to person, place and time. Euthymic mood, makes good eye contact, language grossly intact Results & Data Vital Signs (Past 12 Hours) Vital Signs Temp Pulse Resp BP Pulse Ox 07/07/19 07:53 36.7 C 110 H 22 165/102 H 96 07/07/19 03:48 36.5 C 110 H 20 160/90 H 96 07/07/19 00:22 36.7 C 91 H 19 164/98 H 94 Laboratory Results Short CBC 07/07/19 Range/Units 06:34 WBC 6.01 (4.8-10.8) K/uL Hgb 13.7 (12.0-16.0) g/dL Hct 41.9 (37-47) % Plt Count 257 (130-400) K/uL BMP 07/07/19 06:34 Sodium 142 Potassium 3.3 L Chloride 106 Carbon Dioxide 28 BUN 25 H Creatinine 0.96 D Glucose 137 H Calcium 8.2 L Urine 07/07/19 Range/Units 07:00 Urine Color Yellow Urine Appearance Clear (Clear) Urine pH 6.5 (4.5-7.5) Ur Specific [place] 1.017 (1.000-1.030) Urine Protein Negative (Negative) Urine Glucose (UA) Trace H (Negative) Medications Administered Current Inpatient Medications Acetaminophen (Tylenol) 650 mg PO Q4H PRN PRN Reason: Pain or Fever Stop: 08/02/19 16:56 Last Admin: 07/07/19 07:56 Dose: 650 mg Documented by: Albuterol (Ventolin Hfa) 2 puffs INH Q4H PRN PRN Reason: Shortness Of Breath Stop: 08/02/19 16:56 Apixaban (Eliquis) 5 mg PO BID [facility] Stop: 08/05/19 10:59 Last Admin: 07/07/19 07:59 Dose: 5 mg Documented by: Buspirone HCl (Buspar) 10 mg PO BID [facility] Stop: 08/02/19 20:59 Last Admin: 07/07/19 08:00 Dose: 10 mg Documented by: Diltiazem HCl (Cardizem) 60 mg PO QID [facility] Stop: 08/05/19 12:59 Last Admin: 07/07/19 08:00 Dose: 60 mg Documented by: Fluticasone Propionate (Flovent Hfa 110mch) 2 puffs INH BID [facility] Stop: 08/02/19 20:59 Last Admin: 07/07/19 08:00 Dose: 2 puffs Documented by: Gabapentin (Neurontin) 300 mg PO HS [facility] Stop: 08/02/19 20:59 Last Admin: 07/06/19 20:53 Dose: 300 mg Documented by: Ioversol (Optiray 320 125ml) 119 ml IV ONCE PRN PRN Reason: Interaction Checking Stop: 07/07/19 21:26 Last Admin: 07/03/19 21:28 Dose: 119 ml Documented by: Levalbuterol HCl (Xopenex 0.63 Mg/3 Ml Neb) 0.63 mg NEB Q6R PRN PRN Reason: Shortness Of Breath Or Wheezing Stop: 08/02/19 18:59 Last Admin: 07/05/19 17:21 Dose: 0.63 mg Documented by: Levothyroxine Sodium (Synthroid) 50 mcg PO DAILYPSYCHIATRIC Stop: 08/03/19 06:29 Last Admin: 07/07/19 06:24 Dose: 50 mcg Documented by: Losartan Potassium (Cozaar) [facility] Stop: 08/03/19 08:59 Last Admin: 07/05/19 07:38 Dose: 12.5 mg Documented by: Metoprolol Tartrate (Lopressor) 5 mg IV Q4 PRN PRN Reason: heart rate above 110 beats per minute Stop: 08/02/19 19:59 Montelukast Sodium (Singulair) [facility] Stop: 08/03/19 08:59 Last Admin: 07/07/19 08:00 Dose: 10 mg Documented by: Ondansetron HCl (Zofran) 4 mg IV Q6H PRN PRN Reason: Nausea Stop: 08/02/19 16:56 Polyethylene Glycol (Miralax Powder Packet) 17 gm PO DAILY PRN PRN Reason: Constipation Stop: 08/02/19 16:56 Potassium Chloride (Klor-Con M20) 40 meq PO Q6H [facility] Stop: 07/07/19 14:16 Last Admin: 07/07/19 08:54 Dose: 40 meq Documented by: Prednisone (Prednisone) 40 mg PO DAILY [facility] Stop: 08/06/19 08:59 Last Admin: 07/07/19 08:00 Dose: 40 mg Documented by: Venlafaxine HCl (Effexor Extended Release) [facility] Stop: 08/03/19 08:59 Last Admin: 07/07/19 07:59 Dose: 150 mg Documented by:
--- NOTE | 2019-07-07 10:53 | Cardiology Progress Note ---
Date of Service July 07, 2019 Assessment & Plan (1) Acute respiratory failure with hypoxia: (2) Asthma exacerbation: (3) Atrial fibrillation with RVR: (4) Volume overload: The patient is sating well on room air. She remains in atrial fibrillation with controlled heart rate. She is hypertensive and I will add her losartan back which she takes at home. Continue with Eliquis. Reassess tomorrow with potential discharge and elective cardioversion as an outpatient. Subjective The patient continues to improve and has no current complaints. She is in atrial fibrillation with. Review of Systems Review of Systems: All systems reviewed & are unremarkable except as noted in HPI & below Nothing additional to add. Physical Exam Physical Exam: General: no acute distress and stated age Head: normocephalic, no masses, lesions, tenderness or abnormalities Eyes: conjunctiva are pink and non-injected, sclera clear Neck: supple, no adenopathy, no bruits, normal jugular venous pulse, no hepatojugular reflux Chest: normal shape and normal respiratory effort Lungs: clear to auscultation and percussion Cardiac Exam: - regular rate & rhythm, no murmurs gallops or rubs - normal S1, normal S2 Pulses: 2(+) throughout Abdomen: abdomen soft, non-tender, no abnormal masses and no hepatosplenomegaly Musculoskeletal: no gait disturbance, no joint inflammation, no deforming arthritis Extremities: no edema and no cyanosis Neuro: grossly normal exam Results & Data Vital Signs (Past 12 Hours) Vital Signs Temp Pulse Resp BP Pulse Ox 07/07/19 10:44 94 07/07/19 10:43 36.6 C 108 H 20 163/110 H 95 07/07/19 07:53 36.7 C 110 H 22 165/102 H 96 07/07/19 03:48 36.5 C 110 H 20 160/90 H 96 07/07/19 00:22 36.7 C 91 H 19 164/98 H 94 Laboratory Results Laboratory Results - last 24 hr 07/07/19 07/07/19 07/07/19 06:34 06:34 07:00 WBC 6.01 RBC 4.85 Hgb 13.7 Hct 41.9 MCV 86.4 MCH 28.2 MCHC 32.7 RDW Std Deviation 45.0 RDW Coeff of Stephan 14.4 Plt Count 257 MPV 10.7 H Sodium 142 Potassium 3.3 L Chloride 106 Carbon Dioxide 28 Anion Gap 8.0 BUN 25 H Creatinine 0.96 D Est Cr Clr Drug Dosing 59.4 Est GFR ( Amer) 68.0 Est GFR (Non-Af Amer) 58.7 BUN/Creatinine Ratio 26.5 H Glucose 137 H Calcium 8.2 L Magnesium 2.5 H Urine Color Yellow Urine Appearance Clear Urine pH 6.5 Ur Specific [place] 1.017 Urine Protein Negative Urine Glucose (UA) Trace H Urine Ketones Negative Urine Blood Negative Urine Nitrite Negative Urine Bilirubin Negative Urine Urobilinogen Negative Ur Leukocyte Esterase 1+ H Urine WBC (Auto) 5-10 H Urine RBC (Auto) 0-4 U Hyaline Cast (Auto) 1-5 U Epithel Cells (Auto) >30 H Urine Bacteria (Auto) Negative Medications Administered Current Inpatient Medications Acetaminophen (Tylenol) 650 mg PO Q4H PRN PRN Reason: Pain or Fever Stop: 08/02/19 16:56 Last Admin: 07/07/19 07:56 Dose: 650 mg Documented by: Albuterol (Ventolin Hfa) 2 puffs INH Q4H PRN PRN Reason: Shortness Of Breath Stop: 08/02/19 16:56 Apixaban (Eliquis) 5 mg PO BID [facility] Stop: 08/05/19 10:59 Last Admin: 07/07/19 07:59 Dose: 5 mg Documented by: Buspirone HCl (Buspar) 10 mg PO BID [facility] Stop: 08/02/19 20:59 Last Admin: 07/07/19 08:00 Dose: 10 mg Documented by: Diltiazem HCl (Cardizem) 60 mg PO QID [facility] Stop: 08/05/19 12:59 Last Admin: 07/07/19 08:00 Dose: 60 mg Documented by: Fluticasone Propionate (Flovent Hfa 110mch) 2 puffs INH BID [facility] Stop: 08/02/19 20:59 Last Admin: 07/07/19 08:00 Dose: 2 puffs Documented by: Gabapentin (Neurontin) 300 mg PO HS [facility] Stop: 08/02/19 20:59 Last Admin: 07/06/19 20:53 Dose: 300 mg Documented by: Ioversol (Optiray 320 125ml) 119 ml IV ONCE PRN PRN Reason: Interaction Checking Stop: 07/07/19 21:26 Last Admin: 07/03/19 21:28 Dose: 119 ml Documented by: Levalbuterol HCl (Xopenex 0.63 Mg/3 Ml Neb) 0.63 mg NEB Q6R PRN PRN Reason: Shortness Of Breath Or Wheezing Stop: 08/02/19 18:59 Last Admin: 07/05/19 17:21 Dose: 0.63 mg Documented by: Levothyroxine Sodium (Synthroid) 50 mcg PO DAILYBB [facility] Stop: 08/03/19 06:29 Last Admin: 07/07/19 06:24 Dose: 50 mcg Documented by: [facility]artan Pot[facility]) [facility] Stop: 08/06/19 10:59 Metoprolol Tartrate (Lopressor) 5 mg IV Q4 PRN PRN Reason: heart rate above 110 beats per minute Stop: 08/02/19 19:59 Montelukast Sodium (Singulair) [facility] Stop: 08/03/19 08:59 Last Admin: 07/07/19 08:00 Dose: 10 mg Documented by: Ondansetron HCl (Zofran) 4 mg IV Q6H PRN PRN Reason: Nausea Stop: 08/02/19 16:56 Polyethylene Glycol (Miralax Powder Packet) 17 gm PO DAILY PRN PRN Reason: Constipation Stop: 08/02/19 16:56 Potassium Chloride (Klor-Con M20) 40 meq PO Q6H [facility] Stop: 07/07/19 14:16 Last Admin: 07/07/19 08:54 Dose: 40 meq Documented by: Prednisone (Prednisone) 40 mg PO DAILY [facility] Stop: 08/06/19 08:59 Last Admin: 07/07/19 08:00 Dose: 40 mg Documented by: Venlafaxine HCl (Effexor Extended Release) [facility] Stop: 08/03/19 08:59 Last Admin: 07/07/19 07:59 Dose: 150 mg Documented by:
[2019-07-07] MEDS: LOSARTAN POTASSIUM 25 MG TAB PO SCH (12:13)
[2019-07-07] MEDS: GABAPENTIN 300 MG CAP PO SCH (20:43)
[2019-07-08] MEDS: LEVOTHYROXINE SODIUM 50 MCG TABLET PO SCH (06:35)
[2019-07-08] MEDS: dilTIAZem HCl 60 MG TAB PO SCH (07:38)
[2019-07-08] MEDS: APIXABAN 5 MG TABLET PO SCH ×2 (07:38→20:49)
[2019-07-08] MEDS: FLUTICASONE HFA 110MCG INHALER INH SCH ×2 (07:39→20:48)
[2019-07-08] MEDS: predniSONE 20 MG TAB PO SCH (07:39)
[2019-07-08] MEDS: MONTELUKAST SODIUM 10 MG TABLET PO SCH (07:39)
[2019-07-08] MEDS: LOSARTAN POTASSIUM 25 MG TAB PO SCH (07:39)
[2019-07-08] MEDS: VENLAFAXINE HCL XR 150 MG CAPXR PO SCH (07:40)
[2019-07-08 08:09] LABS: BUN Creatinine Ratio 22.9 (10-20); Calcium 8.5 mg/dl (8.5-10.1); Est GFR (African American) 71.6; Est GFR (Non-African American) 61.8; Magnesium 2.3 mg/dl (1.8-2.4); Potassium 3.5 mmol/L (3.5-5.1)
--- NOTE | 2019-07-08 10:19 | Cardiology Progress Note ---
Date of Service July 08, 2019 Assessment & Plan (1) Acute respiratory failure with hypoxia: (2) Asthma exacerbation: (3) Atrial fibrillation with RVR: (4) Volume overload: On the telemetry the patient is still in atrial fibrillation but I can occasionally see sinus beats, so I am hopeful that she may convert to normal sinus rhythm on her own. She is now on room air and ambulating without dyspnea. I think she can be discharged to outpatient follow-up. I would continue the diltiazem, which we increased today. Along with Evan. I will see her as an outpatient and if necessary proceed with an elective cardioversion. Subjective The patient had an uneventful night and has no new cardiac complaints. Review of Systems Review of Systems: All systems reviewed & are unremarkable except as noted in HPI & below Nothing additional. Physical Exam Physical Exam: General: no acute distress and stated age Head: normocephalic, no masses, lesions, tenderness or abnormalities Eyes: conjunctiva are pink and non-injected, sclera clear Neck: supple, no adenopathy, no bruits, normal jugular venous pulse, no hepatojugular reflux Chest: normal shape and normal respiratory effort Lungs: clear to auscultation and percussion Cardiac Exam: - irregular rate & rhythm, no murmurs gallops or rubs - normal S1, normal S2 Pulses: 2(+) throughout Abdomen: abdomen soft, non-tender, no abnormal masses and no hepatosplenomegaly Musculoskeletal: no gait disturbance, no joint inflammation, no deforming arthritis Extremities: no edema and no cyanosis Neuro: grossly normal exam Results & Data Vital Signs (Past 12 Hours) Vital Signs Temp Pulse Resp BP Pulse Ox 07/08/19 08:10 36.8 C 101 H 18 161/94 H 93 07/08/19 04:55 36.6 C 100 H 21 158/96 H 95 07/07/19 23:51 36.7 C 101 H 19 152/93 H 93 Laboratory Results Laboratory Results - last 24 hr 07/08/19 07:14 Sodium 141 Potassium 3.5 Chloride 108 H Carbon Dioxide 27 Anion Gap 7.0 BUN 21 H Creatinine 0.92 Est Cr Clr Drug Dosing 62.0 Est GFR ( Amer) 71.6 Est GFR (Non-Af Amer) 61.8 BUN/Creatinine Ratio 22.9 H Glucose 98 Calcium 8.5 Magnesium 2.3 Medications Administered Current Inpatient Medications Acetaminophen (Tylenol) 650 mg PO Q4H PRN PRN Reason: Pain or Fever Stop: 08/02/19 16:56 Last Admin: 07/07/19 07:56 Dose: 650 mg Documented by: Albuterol (Ventolin Hfa) 2 puffs INH Q4H PRN PRN Reason: Shortness Of Breath Stop: 08/02/19 16:56 Apixaban (Eliquis) 5 mg PO BID [facility] Stop: 08/05/19 10:59 Last Admin: 07/08/19 07:38 Dose: 5 mg Documented by: Buspirone HCl (Buspar) 10 mg PO BID [facility] Stop: 08/02/19 20:59 Last Admin: 07/08/19 07:39 Dose: 10 mg Documented by: Diltiazem HCl (Cardizem Cd) 300 mg PO QAM [facility] Stop: 08/08/19 08:59 Diltiazem HCl (Cardizem Cd) 300 mg PO TODAY@1500 [facility] Stop: 07/08/19 15:01 Fluticasone Propionate (Flovent Hfa 110mch) 2 puffs INH BID [facility] Stop: 08/02/19 20:59 Last Admin: 07/08/19 07:39 Dose: 2 puffs Documented by: Gabapentin (Neurontin) 300 mg PO HS [facility] Stop: 08/02/19 20:59 Last Admin: 07/07/19 20:43 Dose: 300 mg Documented by: Levalbuterol HCl (Xopenex 0.63 Mg/3 Ml Neb) 0.63 mg NEB Q6R PRN PRN Reason: Shortness Of Breath Or Wheezing Stop: 08/02/19 18:59 Last Admin: 07/05/19 17:21 Dose: 0.63 mg Documented by: Levothyroxine Sodium (Synthroid) 50 mcg PO DAILYBB [facility] Stop: 08/03/19 06:29 Last Admin: 07/08/19 06:35 Dose: 50 mcg Documented by: Losartan Potassium (Cozaar) 25 mg PO QAM [facility] Stop: 08/06/19 10:59 Last Admin: 07/08/19 07:39 Dose: 25 mg Documented by: Metoprolol Tartrate (Lopressor) 5 mg IV Q4 PRN PRN Reason: heart rate above 110 beats per minute Stop: 08/02/19 19:59 Montelukast Sodium (Singulair) 10 mg PO QAM [facility] Stop: 08/03/19 08:59 Last Admin: 07/08/19 07:39 Dose: 10 mg Documented by: Ondansetron HCl (Zofran) 4 mg IV Q6H PRN PRN Reason: Nausea Stop: 08/02/19 16:56 Polyethylene Glycol (Miralax Powder Packet) 17 gm PO DAILY PRN PRN Reason: Constipation Stop: 08/02/19 16:56 Prednisone (Prednisone) 40 mg PO DAILY [facility] Stop: 08/06/19 08:59 Last Admin: 07/08/19 07:39 Dose: 40 mg Documented by: Venlafaxine HCl (Effexor Extended Release) 150 mg PO [facility] Stop: 08/03/19 08:59 Last Admin: 07/08/19 07:40 Dose: 150 mg Documented by:
[2019-07-08] MEDS ORDERED: dilTIAZem HCL 300 MG CAPCR PO SCH (15:00)
[2019-07-08] MEDS ORDERED: POTASSIUM CHLORIDE 20 MEQ TABCR PO STA (15:34)
[2019-07-08] MEDS ORDERED: hydroCHLOROthiazide 25 MG TAB PO STA (15:35)
--- NOTE | 2019-07-08 15:46 | Hospitalist Progress Note ---
Date of Service July 08, 2019 Assessment & Plan (1) Acute respiratory failure with hypoxia: -This is a 74yo F with a PMH of asthma, h/o DVT, mood disorder, HTN, hypothyroidism and other medical problems listed below who presented with progressive SOB and was found to have new onset A fib with RVR and asthma exacerbation -acute respiratory failure had resolved -patient breathing on room air comfortably (2) Asthma exacerbation: -patient had wheezes on this admission -as per review of previous hospitalist review, patient had no prior pulmonary function testing -prednisone taper -PRN nebulizers as needed -will need outpatient follow up (3) Atrial fibrillation with RVR: Atrial fibrillation with rapid ventricular response (heart rate better controlled but there is persistent atrial fibrillation) Anticoagulated by Anticoagulation treatment -continue current anticoagulation as Eliquis 5 mg for stroke risk prevention because of atrial fibrillation -patient recently in the hospital on diltiazem 60 mg QID -had received diltiazem 60 mg in AM of 07/08/19 but review of telemetry continued to show atrial fibrillation with tachycardia above 100 beats per minute, discussed with cardiology Dr. Green about changing to ditliazem CD at 3PM 07/08/19 and then continue diltiazem CD as 300 mg daily -given patient has returned to sinus rhythm during this hospital stay, patient may need outpatient cardioversion (4) Acute diastolic heart failure: -patient had Lasix on this hospital stay but then was stopped due to elevated creatinine and concerns for acute kidney injury -low sodium diet (5) HTN (hypertension): -at home patient takes 12.5 mg daily of Losartan -Losartan was initially held in setting of acute kidney injury which has improved -Losartan was restarted as 25 mg daily starting on 07/07/19 -Blood pressure remains elevated on 07/08/19, start 25 mg HCTZ in addition to Losartan (6) Acute kidney injury: -resolved -monitor renal function while on HCTZ diuretic for blood pressure controll (7) DVT prophylaxis: -Eliquis Full code Subjective Patient continues to be tachycardic to 110 beats per minute with atrial fibrillation. Patient also with elevated blood pressure. Plans were discussed earlier today with patient about potential hospital discharge but because of hypertension, patient agrees to stay in the hospital for cardiovascular medication adjustments including heart rate control and monitoring. No lightheadedness. No dizziness. No headache. denies chest pain or palpitations. no shortness of breath. no wheezing. breathing on room air Physical Exam Constitutional: + obese and comfortable Eyes: PERRL, conjunctivae normal, anicteric sclerae EOM intact bilaterally ENMT: external ear and nose normal, oropharynx normal Neck: normal visual inspection Respiratory: normal respiratory effort Cardiovascular: Rate/Rhythm: + tachycardic and + irregularly irregular Gastrointestinal (Abdomen): normal bowel sounds, soft, nontender, no hepatosplenomegaly Musculoskeletal: Head/Neck/Chest: normocephalic and head atraumatic Neurologic: PERRL, EOMI, accommodation nl, no face palsy, no dysarthria CN's II-XI intact bilaterally Psychiatric: A+Ox3, euthymic affect Results & Data Vital Signs (Past 12 Hours) Vital Signs Temp Pulse Pulse Pulse Resp BP BP 07/08/19 15:32 110 H 179/100 H 07/08/19 15:28 36.5 C 96 H 18 180/94 H 07/08/19 11:51 36.6 C 111 H 18 171/89 H 07/08/19 11:38 110 H 07/08/19 08:10 36.8 C 101 H 18 161/94 H 07/08/19 04:55 36.6 C 100 H 21 158/96 H Pulse Ox 07/08/19 15:32 07/08/19 15:28 92 07/08/19 11:51 93 07/08/19 11:38 07/08/19 08:10 93 07/08/19 04:55 95
[2019-07-08] MEDS: GABAPENTIN 300 MG CAP PO SCH (20:48)
[2019-07-09] MEDS: LEVOTHYROXINE SODIUM 50 MCG TABLET PO SCH (05:49)
[2019-07-09 07:22] LABS: Albumin Level 3.1 gm/dl (3.4-5.0); BUN Creatinine Ratio 22.7 (10-20); Calcium 8.7 mg/dl (8.5-10.1); Creatinine Clr Calc Pharmacy 60.7 ml/min; Est GFR (African American) 71.6; Est GFR (Non-African American) 61.8; Magnesium 2.4 mg/dl (1.8-2.4); Potassium 3.5 mmol/L (3.5-5.1)
[2019-07-09 07:25] LABS: Albumin Globulin Ratio 0.9 (0.9-2); Bilirubin,Total 0.5 mg/dl (0.2-1); Globulin 3.3 gm/dl (2.5-4.0); Total Protein 6.4 gm/dl (6.4-8.2)
[2019-07-09 07:55] VITALS: O2SAT 93
[2019-07-09] MEDS: MONTELUKAST SODIUM 10 MG TABLET PO SCH (08:16)
[2019-07-09] MEDS: VENLAFAXINE HCL XR 150 MG CAPXR PO SCH (08:16)
[2019-07-09] MEDS: LOSARTAN POTASSIUM 25 MG TAB PO SCH (08:16)
[2019-07-09] MEDS: APIXABAN 5 MG TABLET PO SCH (08:17)
[2019-07-09] MEDS: FLUTICASONE HFA 110MCG INHALER INH SCH (08:17)
[2019-07-09] MEDS ORDERED: dilTIAZem HCL 300 MG CAPCR PO SCH (09:00)
[2019-07-09] MEDS ORDERED: hydroCHLOROthiazide 25 MG TAB PO SCH (09:00)
[2019-07-09] MEDS ORDERED: predniSONE 20 MG TAB PO SCH (09:00)
--- NOTE | 2019-07-09 11:01 | Hospitalist Progress Note ---
Date of Service July 09, 2019 Assessment & Plan (1) Acute respiratory failure with hypoxia: -This is a 74yo F with a PMH of asthma, h/o DVT, mood disorder, HTN, hypothyroidism and other medical problems listed below who presented with progressive SOB and was found to have new onset A fib with RVR and asthma exacerbation -acute respiratory failure had resolved -patient breathing on room air comfortably (2) Asthma exacerbation: -patient had wheezes on this admission and treatment included nebulizer treatments and systemic steroids -as per review of previous hospitalist review, patient had no prior pulmonary function testing -on prednisone taper -Patient to take prednisone 20 mg daily for 3 more days because of asthma. Patient should discuss with primary care doctor if any further testing for asthma diagnosis Elevated D-Dimer on admission -07/03/19 CTA: No central or lobar pulmonary emboli identified. Remainder of pulmonary arteries suboptimally assessed respiratory motion. (3) Atrial fibrillation with RVR: Atrial fibrillation with rapid ventricular response (heart rate better controlled but there is persistent atrial fibrillation) Anticoagulated by Anticoagulation treatment -continue current anticoagulation as Eliquis 5 mg for stroke risk prevention because of atrial fibrillation -patient recently in the hospital on diltiazem 60 mg QID -had received diltiazem 60 mg in AM of 07/08/19 but review of telemetry continued to show atrial fibrillation with tachycardia above 100 beats per minute, discussed with cardiology Dr. Green about changing to ditliazem CD at 3PM 07/08/19 and then continue diltiazem CD as 300 mg daily -given patient has returned to sinus rhythm during this hospital stay, patient may need outpatient cardioversion -Discharge Medications sent to [address] [address] Patient should take Diltiazem 300 mg daily, Eliquis 5 mg twice a day for heart rate control of the atrial fibrillation and to prevent stroke from atrial fibrillation. Dr. Green of [facility] Cardiology service evaluated the patient at [facility] to coordinate outpatient follow up for cardioversion. A hospital follow up appointment to cardiology 07/14/2019 1:00 PM Provider Aamir Green, DO Department Cardiology, [facility] (4) Acute diastolic heart failure: -patient had Lasix on this hospital stay but then was stopped due to elevated creatinine and concerns for acute kidney injury -heart healthy low sodium diet (5) HTN (hypertension): -at home patient takes 12.5 mg daily of Losartan -Losartan was initially held in setting of acute kidney injury which has improved -Losartan was restarted as 25 mg daily starting on 07/07/19 -Blood pressure remains elevated on 07/08/19, start 25 mg HCTZ in addition to Losartan -Blood pressure improved by 07/09/19 -Patient should take Losartan 25 mg daily, Hydrochlorothiazide 25 mg daily for blood pressure Patient should take potassium supplements of 10 meq daily until follow up with primary care doctor. Patient should have basic metabolic panel lab and serum magnesium check by primary care doctor because of being on increased dose of Losartan and also on Hydrochlorothiazide Patient has primary care doctor follow up 07/15/2019 11:10 AM Provider Kari Walters DO [facility] (6) Acute kidney injury: -resolved -monitor renal function while on HCTZ diuretic for blood pressure controll (7) DVT prophylaxis: -Eliquis Full code Discharge Diagnosis: Acute respiratory failure with hypoxia (Resolved), Atrial fibrillation with rapid ventricular response (heart rate better controlled but there is persistent atrial fibrillation), Anticoagulated by Anticoagulation treatment, Exacerbation of asthma, hypertension, elevated D-dimer on this admission Subjective Patient continues to be in atrial fibrillation but recent heart rates are under 100 beats per minute. Blood pressure better controlled today. no dizziness. no headache. no chest pain. no palpitations. no shortness of breath. patient breathing on room air. discharge plans discussed at length Physical Exam Constitutional: + obese and comfortable Eyes: PERRL, conjunctivae normal, anicteric sclerae EOM intact bilaterally ENMT: external ear and nose normal, oropharynx normal Neck: normal visual inspection Respiratory: normal respiratory effort Cardiovascular: Rate/Rhythm: + tachycardic and + irregularly irregular Gastrointestinal (Abdomen): normal bowel sounds, soft, nontender, no hepatosplenomegaly Musculoskeletal: Head/Neck/Chest: normocephalic and head atraumatic Neurologic: PERRL, EOMI, accommodation nl, no face palsy, no dysarthria CN's II-XI intact bilaterally Psychiatric: A+Ox3, euthymic affect Results & Data Vital Signs (Past 12 Hours) Vital Signs Temp Pulse Resp BP Pulse Ox 07/09/19 07:54 36.3 C L 82 18 149/85 H 93 07/09/19 04:15 36.9 C 107 H 18 174/94 H 95 07/09/19 00:20 36.8 C 92 H 18 129/82 92
--- NOTE | 2019-07-09 11:13 | Discharge Summary ---
Date of Service July 09, 2019 Admission HPI Per Admitting Provider This is a 74yo F with a PMH of asthma, h/o DVT, mood disorder, HTN, hypothyroidism and other medical problems listed below who presents with progressive SOB x 3 days. Shortness of breath started as exertional but pr ogressed to constant as of today. Patient has not been able to do her normal amount of housework. Associated symptoms include lightheadedness, dizziness and nausea. Has been audibly wheezing for the past few days and has been using rescue albuterol inhaler as well as her nebulizer treatment nightly. 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 Denies chest pain or palpitations. No fever, chills, headache, visual changes, vomiting, abdominal pain, dysuria, constipation or diarrhea. Denies weight gain, orthopnea or PND. Has chronic lower extremity swelling that is at baseline. ED, patient found to be tachycardic at 155 bpm. EKG with atrial fibrillation with RVR. Is saturation at 97% on 4 L NC O2 (does not require O2 at home). Chest x-ray with evidence of congestive heart failure. No leukocytosis or electrolyte abnormalities. Troponin is normal. Denies history of atrial fibrillation. Does have history of DVT was approximately 5-10 years ago. Admission Exam Per Admitting Provider General Appearance: WD/WN, vitals as above, appears to be in respiratory distress when speaking with accessory muscle use, diaphoretic, saturating at 95% on 4L NC Head: normocephalic, atraumatic Eyes: normal inspection, PERRL, conjunctivae normal, anicteric sclerae ENT: external ear and nose normal, oropharynx normal Neck: trachea midline, no thyromegaly, normal visual inspection Respiratory: normal respiratory effort, poor air movement bilaterally, expiratory wheezes. + accessory muscle use Cardiovascular: tachycardic, irregular rate & rhythm, no murmur appreciated, normal peripheral pulses, trace BLE edema L>R. Vessels: no JVD or carotid bruit Chest: normal inspection of chest Abdomen/GI: normal bowel sounds, soft, nontender, no hepatosplenomegaly Extremities/Musculoskelatal: no cyanosis or clubbing, extremities motor strength 5/5 Neurologic: PERRL, EOMI, accommodation nl, no face palsy, no dysarthria CN's II-XI intact bilaterally and moves all extremities Psychiatric: A+Ox3, euthymic affect Skin: no rashes, normal color, warm/dry Principal Diagnosis Acute respiratory failure with hypoxia (Resolved), Atrial fibrillation with rapid ventricular response (heart rate better controlled but there is persistent atrial fibrillation), Anticoagulated by Anticoagulation treatment, Exacerbation of asthma, hypertension, elevated D-dimer on this admission Discharge Exam Constitutional + obese and comfortable Eyes PERRL, conjunctivae normal, anicteric sclerae EOM intact bilaterally ENMT external ear and nose normal, oropharynx normal Neck normal visual inspection Respiratory normal respiratory effort Cardiovascular Rate/Rhythm: regular rate and + irregularly irregular Gastrointestinal (Abdomen) normal bowel sounds, soft, nontender, no hepatosplenomegaly Musculoskeletal Head/Neck/Chest: normocephalic and head atraumatic Neurologic PERRL, EOMI, accommodation nl, no face palsy, no dysarthria CN's II-XI intact bilaterally Psychiatric A+Ox3, euthymic affect Discharge Data Allergies Allergy/AdvReac Type Severity Reaction Status Date / Time adhesive Allergy Unknown HEAVIER Verified 07/03/19 12:25 SURG TAPE-REDNESS SORE SKIN cat dander Allergy Unknown ITCHY Verified 07/03/19 12:25 NOSE, ITCHY EYES,RUNNY NOSE grass pollen-perennial rye, Allergy Unknown GRASS,MOLD-ITCHY Verified 07/03/19 12:25 standar EYES RUNNY NOSE latex Allergy Unknown CONTACT Verified 07/03/19 12:25 DERMATITIS tetanus toxoid, adsorbed Allergy Unknown SWELLING Verified 07/03/19 12:25 AT SITE KOLE Inhibitors AdvReac Unknown COUGH Unverified 07/03/19 12:25 Consultations 07/03/19 16:14 ED Decision to Admit Stat 07/03/19 16:57 Consult Cardiology Routine Ordered Studies 07/03/19 15:56 CT angio chest PE protocol Routine Hospital Course (1) Acute respiratory failure with hypoxia: -This is a 74yo F with a PMH of asthma, h/o DVT, mood disorder, HTN, hypothyroidism and other medical problems listed below who presented with progressive SOB and was found to have new onset A fib with RVR and asthma exacerbation -acute respiratory failure had resolved -patient breathing on room air comfortably (2) Asthma exacerbation: -patient had wheezes on this admission and treatment included nebulizer treatments and systemic steroids -as per review of previous hospitalist review, patient had no prior pulmonary function testing -on prednisone taper -Patient to take prednisone 20 mg daily for 3 more days because of asthma. Patient should discuss with primary care doctor if any further testing for asthma diagnosis Elevated D-Dimer on admission -07/03/19 CTA: No central or lobar pulmonary emboli identified. Remainder of pulmonary arteries suboptimally assessed respiratory motion. (3) Atrial fibrillation with RVR: Atrial fibrillation with rapid ventricular response (heart rate better controlled but there is persistent atrial fibrillation) Anticoagulated by Anticoagulation treatment -continue current anticoagulation as Eliquis 5 mg for stroke risk prevention because of atrial fibrillation -patient recently in the hospital on diltiazem 60 mg QID -had received diltiazem 60 mg in AM of 07/08/19 but review of telemetry continued to show atrial fibrillation with tachycardia above 100 beats per minute, discussed with cardiology Dr. Green about changing to ditliazem CD at 3PM 06/21 06/08 and then continue diltiazem CD as 300 mg daily -given patient has returned to sinus rhythm during this hospital stay, patient may need outpatient cardioversion -Discharge Medications sent to [address] [address] Patient should take Diltiazem 300 mg daily, Eliquis 5 mg twice a day for heart rate control of the atrial fibrillation and to prevent stroke from atrial fibrillation. Dr. Green of [facility] Cardiology service evaluated the patient at [facility] to coordinate outpatient follow up for cardioversion. A hospital follow up appointment to cardiology 07/14/2019 1:00 PM Provider Aamir Green, Department Cardiology, [facility] (4) Acute diastolic heart failure: -patient had Lasix on this hospital stay but then was stopped due to elevated creatinine and concerns for acute kidney injury -heart healthy low sodium diet (5) HTN (hypertension): -at home patient takes 12.5 mg daily of Losartan -Losartan was initially held in setting of acute kidney injury which has improved -Losartan was restarted as 25 mg daily starting on 07/07/19 -Blood pressure remains elevated on 07/08/19, start 25 mg HCTZ in addition to Losartan -Blood pressure improved by 07/09/19 -Patient should take Losartan 25 mg daily, Hydrochlorothiazide 25 mg daily for blood pressure Patient should take potassium supplements of 10 meq daily until follow up with primary care doctor. Patient should have basic metabolic panel lab and serum magnesium check by primary care doctor because of being on increased dose of Losartan and also on Hydrochlorothiazide Patient has primary care doctor follow up 07/15/2019 11:10 AM Provider Kari Walters DO Department [facility] (6) Acute kidney injury: -resolved -monitor renal function while on HCTZ diuretic for blood pressure controll (7) DVT prophylaxis: -Eliquis Full code Discharge Diagnosis: Acute respiratory failure with hypoxia (Resolved), Atrial fibrillation with rapid ventricular response (heart rate better controlled but there is persistent atrial fibrillation), Anticoagulated by Anticoagulation treatment, Exacerbation of asthma, hypertension, elevated D-dimer on this admi ssion Total Time Total Time Spent Total Time Spent (In Minutes): 40 minutes Total Time Includes: Examination of the Patient, Discharge Planning, Medication Reconciliation and Communication With Other Providers Discharge Plan Discharge Items Patient Disposition: Home - Self-Care Reason For Visit: RESP DISTRESS, A FIB WITH RVR Discharge Diagnosis: Acute respiratory failure with hypoxia (Resolved), Atrial fibrillation with rapid ventricular response (heart rate better controlled but there is persistent atrial fibrillation), Anticoagulated by Anticoagulation treatment, Exacerbation of asthma, hypertension, elevated D-dimer on this admission Condition on Discharge: Good Activity: Per Instructions section Non-emergency contact: Primary Care Provider and Hand Picker Call non-emergency contact if: you have any medication questions Follow-up/Referrals: Dameon Wallace DO [Primary Care Provider] - Diet: Heart Healthy and Low Sodium (2gm) Addtl Attending Provider Instructions: Discharge Medications sent to [address] [address] Patient should take Diltiazem 300 mg daily, Eliquis 5 mg twice a day for heart rate control of the atrial fibrillation and to prevent stroke from atrial fibrillation. Dr. Green of [facility] Cardiology service evaluated the patient at [facility] to coordinate outpatient follow up for cardioversion. A hospital follow up appointment to cardiology 07/14/2019 1:00 PM Provider Aamir Green DO Department Cardiology, [facility] Patient should take Losartan 25 mg daily, Hydrochlorothiazide 25 mg daily for blood pressure Patient should take potassium supplements of 10 meq daily until follow up with primary care doctor. Patient should have basic metabolic panel lab and serum magnesium check by primary care doctor because of being on increased dose of Losartan and also on Hydrochlorothiazide Patient has primary care doctor follow up 07/15/2019 11:10 AM Provider Kari Walters DO [facility] Patient to take prednisone 20 mg daily for 3 more days because of asthma. Patient should discuss with primary care doctor if any further testing for asthma diagnosis Other follow up 07/21/2019 1:00 PM Provider Brenda Trujillo PA-C [facility] Call your Primary Care doctor if any of the following symptoms or problems start or get worse: * Shortness of breath or difficulty breathing * Wake up at night short of breath * Chest pain * Cough * Swelling of your hands, feet, or legs * More fatigued or tired with your normal activity * Palpitations - sudden fast heart beats WEIGHT * Weigh yourself every morning after using the bathroom. * Use the same scale. * Wear the same amount of clothing. * Write your weight down on a chart. * Call your Primary Care doctor if you gain more than 2-3 pounds in 1-2 days. MEDICATIONS * Use this discharge instruction sheet for medication instructions. * Take your medications at the time your doctor ordered. * Do not skip a dose of your medicines. * If you miss a dose of medicine, take it as soon as possible, but DO NOT DOUBLE A DOSE. * Read your medicine information when you get home. * Know all of the side effects of your medicine. If in doubt, ask your pharmacist * Call your Primary Care doctor's office if you have any side effects. * Be sure all of your doctors know what medicine and herbs you take (including cold, flu, and herbal medicine). Take the following with you to your follow-up doctor appointments: * Weight Chart * Medication List * List of questions Do not drink excessive alcohol, beer or wine. Pending Studies at Discharge: No Stand-Alone Forms: My [facility] Medications and DC Order Prescriptions: New diltiazem HCl [Cardizem CD] 300 mg Capsule,Extended Release 24hr 300 mg PO QAM 30 Days Qty: 30 RF: 0 Eliquis 5 mg Tablet 5 mg PO BID 30 Days Qty: 60 RF: 0 prednisone 20 mg Tablet 20 mg PO DAILY 3 Days Qty: 3 RF: 0 losartan 25 mg Tablet 25 mg PO QAM 30 Days Qty: 30 RF: 0 hydrochlorothiazide 25 mg Tablet 25 mg PO QAM 30 Days Qty: 30 RF: 0 potassium chloride [Klor-Con M10] 10 mEq Tablet,Er Particles/Crystals 10 meq PO DAILY 10 Days Qty: 10 RF: 0 Continued venlafaxine 150 mg capsule,extended release 24hr 150 mg PO QAM RF: 0 levothyroxine 50 mcg tablet 50 mcg PO QAM RF: 0 buspirone 10 mg tablet 10 mg PO BID RF: 0 montelukast 10 mg tablet 10 mg PO QAM RF: 0 gabapentin 300 mg capsule 300 mg PO HS RF: 0 albuterol sulfate 90 mcg/actuation HFA aerosol inhaler 2 inh inhalation Q4H PRN (Reason: Shortness Of Breath) RF: 0 Flovent HFA 110 mcg/actuation Hfa Aerosol Inhaler 2 puff INHALATION BID RF: 0 Discontinued losartan 25 mg tablet 12.5 mg PO QAM RF: 0 Discharge Orders: Discharge Order (Routine); Ordered 07/09/19 Ordered By: Kendall Warner Admission Data Admit Date/Time: 07/03/19 14:25 Attending Provider: Kendall Warner Admit Provider: Kendall Warner Primary Care Provider: Dameon Wallace Other Providers: Kendall Wraner ; Tucker Purvis
[2019-07-09 12:13] VITALS: BP 130/80; PULSE 96; TEMP 97.9
[2019-07-10] MEDS ORDERED: POTASSIUM CHLORIDE 10 MEQ TABCR PO SCH (09:00)
== END 2019-07-09 12:21 | disposition home or self-care (01) | DRG 308 ==
LOC: ED 11:23 → 2S 14:25 → SUATTDRO 14:25 → 2S 16:30

== ENCOUNTER 2019-08-27 09:04 | Inpatient (IN) ==
[2019-08-27 10:22] LABS: Base Excess VBG 0.4 mEq/L; pH VBG 7.42 (7.36-7.41)
[2019-08-27 10:24] LABS: Basophils # (auto) 0.02 K/uL (0-0.2); Basophils % (auto) 0.2 %; Eosinophils # (auto) 0.11 K/uL (0-0.5); Eosinophils % (auto) 1.3 %; Hematocrit (blood only) 41.2 % (37-47); Hemoglobin 13.3 g/dL (12.0-16.0); Immature Granulocytes # (auto) 0.03 K/uL (0.00-0.02); Immature Granulocytes % (auto) 0.4 %; Lymphocytes # (auto) 2.03 K/uL (1.2-3.4); Mean Corpuscular Hemoglobin 28.2 pg (25-34); Mean Corpuscular Hgb Conc 32.3 g/dL (32-36); Mean Corpuscular Volume 87.5 fL (80-100); Monocytes # (auto) 0.79 K/uL (0.11-0.59); Monocytes % (auto) 9.3 %; Neutrophils # (auto) 5.48 K/uL (1.4-6.5); Neutrophils % (auto) 64.8 %; Platelet Count 308 K/uL (130-400); RDW Coefficient of Variation 16.2 % (11.5-14.5); RDW Standard Deviation 51.6 fL (36.4-46.3); Red Blood Count 4.71 M/uL (4.2-5.4); White Blood Count 8.46 K/uL (4.8-10.8)
[2019-08-27 10:35] LABS: INR 1.2 (0.9-1.1); Partial Thromboplastin Time 26.5 Seconds (21.0-31.0); Prothrombin Time 12.4 Seconds (9.0-12.0)
[2019-08-27] MEDS ORDERED: LORazepam 0.5 MG/1 ML VIAL IV STA (10:38)
[2019-08-27 10:40] LABS: Alanine Aminotransferase 16 U/L (12-78); Albumin Level 3.2 gm/dl (3.4-5.0); Aspartate Aminotransferase 11 U/L (15-37); BUN Creatinine Ratio 13.7 (10-20); Blood Urea Nitrogen 16 mg/dl (7-18); Carbon Dioxide 24 mmol/L (21-32); Chloride 113 mmol/L (98-107); Creatinine Clr Calc Pharmacy 49.9 ml/min; Est GFR (African American) 55.8; Est GFR (Non-African American) 48.2; Glucose 118 mg/dl (70-99); Magnesium 2.1 mg/dl (1.8-2.4); Potassium 3.5 mmol/L (3.5-5.1); Sodium 144 mmol/L (136-145)
--- NOTE | 2019-08-27 10:47 | XRay Report ---
XR chest 1V portable CLINICAL HISTORY: 74 years-old Female presenting with SOB. TECHNIQUE: Portable upright AP view of the chest was obtained. COMPARISON: 07/03/2019. FINDINGS: Atherosclerosis of the aortic arch. Cardiac silhouette enlarged. Mild pulmonary vascular prominence t uziel this is slightly decreased from prior. Heterogeneous and coarsened lung markings. Minimal basil ar opacities. Trace bilateral pleural effusions may be present. No pneumothorax. Degenerative changes of the thoracic spine. Surgical clips noted in the left breast indicating biopsy or lumpectomy. IMPRESSION: 1. Cardiomegaly with mild volume overload and congestive change. No uday pulmonary edema. 2. Suspected bibasilar atelectasis possible trace bilateral pleural effusions. Electronically signed by: Antelmo Cole M.D. 08/27/2019 10:46 AM
[2019-08-27 10:51] LABS: Albumin Globulin Ratio 0.9 (0.9-2); Alkaline Phosphatase 74 U/L (45-117); Bilirubin,Total 0.7 mg/dl (0.2-1); Globulin 3.5 gm/dl (2.5-4.0); NT Pro B Type Natriuretic Pept 4492 pg/ml (0-900); Phosphorus 3.7 mg/dl (2.5-4.9); Total Protein 6.7 gm/dl (6.4-8.2); Troponin I < 0.015 ng/ml (0-0.045)
[2019-08-27 11:03] LABS: T4 Free Thyroxine 1.17 ng/dl (0.8-1.6)
[2019-08-27] MEDS ORDERED: dilTIAZem HCl 5 MG/ML 5 ML VIAL IV STA (11:24)
[2019-08-27] MEDS ORDERED: FUROSEMIDE 40 MG/4 ML VIAL IV STA (11:28)
[2019-08-27] MEDS ORDERED: POTASSIUM CHLORIDE 20 MEQ TABCR PO STA (11:30)
[2019-08-27 12:44] LABS: Appearance Urine Turbid (Clear); Bacteria Urine Automated Negative (Negative); Blood Urine 2+ (Negative); Color Urine Dark Yellow; Epithelial Cell Urine Auto >30 /lpf (0-5); Glucose Urine UA Negative (Negative); Ketones Urine Negative (Negative); Leukocyte Esterase Urine Negative (Negative); Nitrite Urine Negative (Negative); Protein Urine Trace (Negative); Specific Gravity Urine 1.025 (1.000-1.030); Urobilinogen Urine Negative (Negative)
[2019-08-27] MEDS ORDERED: APIXABAN 5 MG TABLET PO ONE (12:53)
[2019-08-27] MEDS ORDERED: FUROSEMIDE 20 MG in SYRINGE 0 ML IV ONE (12:58)
[2019-08-27] MEDS ORDERED: FUROSEMIDE 40 MG/4 ML VIAL IV ONE (12:58)
[2019-08-27] MEDS ORDERED: LOSARTAN POTASSIUM 25 MG TAB PO ONE (13:15)
[2019-08-27 13:24] LABS: Bilirubin Urine Negative (Negative); Ictotest Urine Negative (Negative)
[2019-08-27] MEDS ORDERED: METOPROLOL TARTRATE 50 MG TAB PO STA (13:26)
[2019-08-27] MEDS ORDERED: dilTIAZem HCL 300 MG CAPCR PO ONE (13:29)
--- NOTE | 2019-08-27 13:33 | History & Physical Report ---
Date of Service August 27, 2019 Assessment & Plan (1) Heart failure, diastolic, with acute decompensation: This is a 74yo F with a PMH of persistent atrial fibrillation on Eliquis, asthma, chronic diastolic heart failure, HTN, depression, hypothyroidism and other medical problems listed below who presents with progressive SOB and was found to have atrial fibrillation with RVR and acute decompensated diastolic heart failure. -SOB, BLE edema, weight gain -Chest x-ray cardiomegaly with mild volume overload and congestive change. No uday pulmonary edema. Suspected bibasilar atelectasis possible trace bilateral pleural effusions -Given 40mg IV Lasix in ED. Plan to continue diuresis with 40mg IV BID with strict I&Os, daily weight, low sodium diet -Continue supplemental O2 -Can in place (2) Atrial fibrillation with RVR: Admitted with new onset A Fib in Jun 2019, was discharged home on Cartia XT 300mg daily, Lopressor 25mg BID and anticoagulated on Eliquis -BORIS guided external direct current cardioversion attempted by Dr. Hilario on 07/15/19 but unsuccessful x 4 attempts -Presenting with A Fib with RVR today, given 20mg diltiazem by EMS and an additional 25mg in ED -Given missed morning dose of Cartia XT 300mg and Eliquis -Discussed with Dr. Walters who recommends holding Lopressor while patient in respiratory distress. Will re-evaluate for beta luis armando in AM -Placed on diltiazem drip @ 5 mls/hr -Monitor on telemetry (3) Acute respiratory failure with hypoxia: Initially hypoxic and high 80s, now 98% on 4 L nasal cannula O2 -Does not require home O2 -H/o asthma, although recently seen by Dr. Anderson in pulm clinic and he is not convinced patient has asthma- suspects possible cardiac etiology related to fluid overload resulting in her shortness of breath and wheezing -Has PFTs pending for next week - singulair, nebs and inhalers have been on hold, per patient -Discussed with Dr. Hubbard today, who recommends starting with diuresis and he will evaluate patient tomorrow. No nebs or steroids for now (4) Mood disorder: Continue Venlafaxine, buspirone (5) HTN (hypertension): Mildly elevated upon arrival -Continue losartan. Holding hctz while receiving IV lasix DVT Ppx: Eliquis Code status: FULL per discussion with patient PCP: Radha Dispo: Admitted to PCU. Discharge planning ordered (needs additional help managing medications at home) Patient seen in collaboration with Dr. García. Please see addendum. History of Present Illness Chief Complaint: SOB Primary Care Provider: Kari Walters DO This is a 74yo F with a PMH of persistent atrial fibrillation on Eliquis, asthma, chronic diastolic heart failure, HTN, depression, hypothyroidism and other medical problems listed below who presents with progressive SOB. Patient was recently admitted from 07/09-07/09 with new onset atrial fibrillation with RVR , decompensated diastolic heart failure and asthma exacerbation. Did not spontaneously convert to NSR during admission and was discharged home on Cartia XT 300mg daily and anticoagulated on Eliquis. BORIS guided external direct current cardioversion attempted by Dr. Hilario on 07/15/19 but unsuccessful x 4 attempts. Followed up with cardiology service on August 10 and it was determined that patient had not yet filled metoprolol tartrate prescription and was encouraged to do so. However, patient is still unsure if she is taking medication or not. Followed up with Dr. Anderson of pulmonary group on August 20 and asthma felt to be secondary to cardiac etiology and close cardiac follow-up was strongly recommended. Due for PFTs next week. Has been short of breath since discharge from previous admission but became progressively so last evening. Now wheezing as well and endorsing intermittent palpitations. Also with lower extremity edema and 8 pound weight gain. Denies any lightheadedness, visual changes, chest pain, nausea, vomiting, abdominal pain, dysuria, diarrhea or constipation. In the ED, noted to be tachycardic in 130s. EKG with atrial fibrillation with RVR. Is saturation at 98% on 4 L NC O2 (does not require O2 at home). BiPAP was initiated but patient intolerant so was discontinued as she was switched back to nasal cannula oxygen. Chest x-ray cardiomegaly with mild volume overload and congestive change. No uday pulmonary edema. Suspected bibasilar atelectasis possible trace bilateral pleural effusions. Allergies Allergy/AdvReac Type Severity Reaction Status Date / Time adhesive Allergy Unknown HEAVIER Verified 08/27/19 09:30 SURG TAPE-REDNESS SORE SKIN cat dander Allergy Unknown ITCHY Verified 08/27/19 09:30 NOSE, ITCHY EYES,RUNNY NOSE grass pollen-perennial rye, Allergy Unknown GRASS,MOLD-ITCHY Verified 08/27/19 09:30 standar EYES RUNNY NOSE latex Allergy Unknown CONTACT Verified 08/27/19 09:30 DERMATITIS tetanus toxoid, adsorbed Allergy Unknown SWELLING Verified 08/27/19 09:30 AT SITE KOLE Inhibitors AdvReac Unknown COUGH Unverified 08/27/19 09:30 Home Medications Home Medications Medication Instructions Recorded Confirmed Type buspirone 10 mg PO BID 01/24/19 08/27/19 History montelukast 10 mg PO QAM 01/24/19 08/27/19 History albuterol sulfate 2 inh INHALATION Q4H PRN 07/03/19 08/27/19 History gabapentin 300 mg PO HS 07/03/19 08/27/19 History apixaban 5 mg tablet 5 mg PO BID 08/19/19 08/27/19 History hydrochlorothiazide 25 mg tablet 25 mg PO QAM 08/19/19 08/27/19 History losartan 25 mg tablet 12.5 mg PO QAM 08/19/19 08/27/19 History potassium chloride ER 10 mEq 10 meq PO DAILY 08/19/19 08/27/19 History capsule,extended release ipratropium-albuterol 3 ml INHALATION QID 08/27/19 08/27/19 History levothyroxine 25 mcg PO QAM 08/27/19 08/27/19 History metoprolol tartrate 25 mg PO BID 08/27/19 08/27/19 History venlafaxine 75 mg PO DAILY 08/27/19 08/27/19 History Past Med/Surg History Medical History Chronic diastolic heart failure (Chronic) Mood disorder (Chronic) Depression (Chronic) HTN (hypertension) (Chronic) Prediabetes (Chronic) Asthma (Chronic) Scoliosis (Chronic) Arthritis (Chronic) History of DVT (deep vein thrombosis) Surgical History H/O: hysterectomy (Chronic) History of mastectomy (Chronic) Family History Other Heart disease Social History Preferred Language: French Communication Ability: Effective Hearing Dog Trainer Required: No Beliefs That Will Affect Care: None Current Living Situation: Alone Other Information That Helps Us Care for You: No Feels Safe at Home: Yes Safety Concerns: Feels Safe At This Time Smoking Status: Never smoker Do You Dip or Chew Tobacco: No ; Second Hand Exposure: No ; Tobacco Cessation Education Requested by Patient: No Hx Alcohol Use: Yes Alcohol type: wine Hx Substance Use: No Review of Systems Review of Systems: At least ten systems reviewed and negative except as noted in the HPI. Physical Exam Physical Exam: General Appearance: WD/WN, vitals as above, dyspneic when speaking, 98% on 4L NC, obese Head: normocephalic, atraumatic Eyes: normal inspection, PERRL, conjunctivae normal, anicteric sclerae ENT: external ear and nose normal, oropharynx normal Neck: trachea midline, no thyromegaly normal visual inspection Respiratory: diffuse wheezing throughout lung perez. No rales or rhonchi. Increased insp/exp effort, + accessory muscle use Cardiovascular: irregular rate & rhythm, no murmur appreciated, normal peripheral pulses, 1+ BLE edema bilaterally. Vessels: no JVD or carotid bruit Chest: normal inspection of chest Abdomen/GI: normal bowel sounds, soft, nontender, no hepatosplenomegaly Extremities/Musculoskelatal: no cyanosis or clubbing, extremities motor strength 5/5 Neurologic: PERRL, EOMI, accommodation nl, no face palsy, no dysarthria CN's II-XI intact bilaterally and moves all extremities Psychiatric: A+Ox3, euthymic affect Skin: no rashes, normal color, warm/dry Results & Data Vital Signs (Past 12 Hours) Vital Signs Temp Pulse Pulse Resp BP BP Pulse Ox 08/27/19 13:11 118 H 22 08/27/19 13:00 127 H 23 149/118 H 98 08/27/19 12:56 112 H 20 130/89 98 08/27/19 12:51 116 H 30 H 150/108 H 98 08/27/19 12:46 119 H 30 H 153/123 H 99 08/27/19 12:41 129 H 28 H 121/84 100 08/27/19 12:35 114 H 25 H 167/107 H 98 08/27/19 12:30 109 H 25 H 155/129 H 98 08/27/19 12:20 101 H 24 121/96 98 08/27/19 12:16 106 H 29 H 121/88 99 08/27/19 12:11 97 H 31 H 97/82 L 98 08/27/19 12:05 110 H 31 H 140/77 99 08/27/19 12:00 112 H 30 H 117/83 95 08/27/19 11:56 104 H 31 H 128/93 96 08/27/19 11:46 116 H 30 H 118/111 H 08/27/19 11:41 107 H 28 H 133/100 93 08/27/19 11:35 138 H 34 H 173/114 H 97 08/27/19 11:30 131 H 28 H 145/103 H 98 08/27/19 11:00 137 H 25 H 155/128 H 100 08/27/19 10:50 129 H 33 H 156/114 H 97 08/27/19 10:30 134 H 24 156/114 H 86 L 08/27/19 10:29 133 H 24 141/107 H 90 08/27/19 10:22 131 H 22 100 08/27/19 09:23 94 08/27/19 09:17 36.7 C 123 H 33 H 163/100 H 94 08/27/19 09:16 115 H 31 H 163/100 H 96 Laboratory Results Short CBC 08/27/19 Range/Units 10:06 WBC 8.46 (4.8-10.8) K/uL Hgb 13.3 (12.0-16.0) g/dL Hct 41.2 (37-47) % Plt Count 308 (130-400) K/uL BMP 08/27/19 10:06 Sodium 144 Potassium 3.5 Chloride 113 H Carbon Dioxide 24 BUN 16 Creatinine 1.13 Glucose 118 H Calcium 9.0 Cardiac Enzymes 08/27/19 Range/Units 10:06 Troponin I < 0.015 (0-0.045) ng/ml Liver Function 08/27/19 Range/Units 10:06 Total Bilirubin 0.7 (0.2-1) mg/dl AST 11 L (15-37) U/L ALT 16 (12-78) U/L Alkaline Phosphatase 74 (45-117) U/L Albumin 3.2 L (3.4-5.0) gm/dl Urine 08/27/19 Range/Units 12:30 Urine Color Dark Yellow Urine Appearance Turbid A (Clear) Urine pH 5.0 (4.5-7.5) Ur Specific Hayden 1.025 (1.000-1.030) Urine Protein Trace H (Negative) Urine Glucose (UA) Negative (Negative) Diagnostic Findings CXR: IMPRESSION: 1. Cardiomegaly with mild volume overload and congestive change. No uday pulmonary edema. 2. Suspected bibasilar atelectasis possible trace bilateral pleural effusions. ECG Rhythm: atrial fibrillation Code Status & VTE Plan VTE Prophylaxis Plan VTE Prophylaxis will be ordered: Yes Supervising Physician Co-Signing Physician Notes Attending Addendum: care coordinated with SÁNCHEZ Wilks please refer to her notes for full details, I agree with her notes patient seen and examined, records reviewed by myself as well on exam, patient seen resting in bed, comfortable states she feels improved compared to admission denies shortness of breath, chest pain no other symptoms VS noted and reviewed oriented x 3, not in distress, speaks in sentences with no effort nor accessory muscle use normal rate,irregularly irregular rhythm, no murmurs mild rales at the bases, no wheezing non distended, soft, nontender mild bipedal edema, erythema, warmth no neuro deficits WBC 8.4 Hg 13.3 Crea 1.13 ASSESSMENT AND PLAN A FIB IN RVR continue Diltiazem drip hold B blockers in light of possible Asthma component ACUTE DECOMPENSATION OF CHRONIC DIASTOLIC CHF likely from #1 Lasix IV BID ordered other diagnoses and plan of care as per SÁNCHEZ Wilks's notes Contreras García MD
[2019-08-27 13:39] LABS: Amorphous Sediment Urine Present (None Prsent); Mucus Urine Present (None Prsent)
[2019-08-27] MEDS ORDERED: dilTIAZem HCl 125 MG in DEXTROSE 5% 100 ML IV SCH (13:45)
[2019-08-27] MEDS: dilTIAZem HCl 125 MG in DEXTROSE 5% 100 ML IV SCH (13:59)
[2019-08-27] MEDS ORDERED: POLYETHYLENE (MIRALAX) 17 GM PACK PO PRN (14:34)
[2019-08-27] MEDS ORDERED: ALBUTEROL HFA 8 GM INHALER INH PRN (14:51)
--- NOTE | 2019-08-27 16:45 | Emergency Department Note ---
Entered by Jem Santacruz acting as a scribe for History of Present Illness General Chief complaint: Shortness of Breath/Dyspnea Time Seen by Provider: 08/27/19 09:12 Source: patient History of Present Illness Provider complaint: Shortness of breath Onset (ago): week(s) (Couple weeks) Location: chest Severity: similar to prior episodes Pain Consistency: + other (Worsening) Maximum Pain Intensity: 2 Current Pain Intensity: 2 Relieved By: + medication Exacerbated By: + movement Associated symptoms: + chest pain and + other (Lower extremity swelling) The patient is a 74 year old female who presents to the Emergency Room via EMS with complaints of constant shortness of breath that has been persistent for the past couple of weeks but became acutely worse this morning. The patient states her breathing is especially difficult when she is walking. The patient endorses some chest pressure that does not radiate anywhere. The patient also has noticed an increase in her lower extremity swelling as well as recent weight gain. Upon arrival to the ED the patient's oxygen saturation was 94% on 2L NC however the patient mentioned that she normally does not wear any oxygen. The patient has a history of Afib with RVR for which she takes 300mg PO Cardizem daily. Per EMS, the patient's heart rate was initially in the 140s-180s but after receiving 20mg IV of Cardizem it improved to the 120s. They also reports that the patient's respiratory rate was 30-40s. The patient explained that she is unsure if it is asthma or allergies that is causing the breathing issues but she has a breathing test scheduled for this month to further evaluate. Home Medications Home Medications Medication Instructions Recorded Confirmed Type buspirone 10 mg PO BID 01/24/19 08/27/19 History montelukast 10 mg PO QAM 01/24/19 08/27/19 History albuterol sulfate 2 inh INHALATION Q4H PRN 07/03/19 08/27/19 History gabapentin 300 mg PO HS 07/03/19 08/27/19 History apixaban 5 mg tablet 5 mg PO BID 08/19/19 08/27/19 History hydrochlorothiazide 25 mg tablet 25 mg PO QAM 08/19/19 08/27/19 History losartan 25 mg tablet 12.5 mg PO QAM 08/19/19 08/27/19 History potassium chloride ER 10 mEq 10 meq PO DAILY 08/19/19 08/27/19 History capsule,extended release ipratropium-albuterol 3 ml INHALATION QID 08/27/19 08/27/19 History levothyroxine 25 mcg PO QAM 08/27/19 08/27/19 History metoprolol tartrate 25 mg PO BID 08/27/19 08/27/19 History venlafaxine 75 mg PO DAILY 08/27/19 08/27/19 History Allergies Allergy/AdvReac Type Severity Reaction Status Date / Time adhesive Allergy Unknown HEAVIER Verified 08/27/19 09:30 SURG TAPE-REDNESS SORE SKIN cat dander Allergy Unknown ITCHY Verified 08/27/19 09:30 NOSE, ITCHY EYES,RUNNY NOSE grass pollen-perennial rye, Allergy Unknown GRASS,MOLD-ITCHY Verified 08/27/19 09:30 standar EYES RUNNY NOSE latex Allergy Unknown CONTACT Verified 08/27/19 09:30 DERMATITIS tetanus toxoid, adsorbed Allergy Unknown SWELLING Verified 08/27/19 09:30 AT SITE KOLE Inhibitors AdvReac Unknown COUGH Unverified 08/27/19 09:30 Past Med/Surg History Medical History Chronic diastolic heart failure (Chronic) Mood disorder (Chronic) Depression (Chronic) HTN (hypertension) (Chronic) Prediabetes (Chronic) Asthma (Chronic) Scoliosis (Chronic) Arthritis (Chronic) History of DVT (deep vein thrombosis) Surgical History H/O: hysterectomy (Chronic) History of mastectomy (Chronic) Family History Other Heart disease Social History Preferred Language: Kazakh Communication Ability: Effective Ssas Developer Required: No Beliefs That Will Affect Care: None Current Living Situation: Alone Other Information That Helps Us Care for You: No Feels Safe at Home: Yes Safety Concerns: Feels Safe At This Time Smoking Status: Never smoker Do You Dip or Chew Tobacco: No ; Second Hand Exposure: No ; Tobacco Cessation Education Requested by Patient: No Hx Alcohol Use: Yes Alcohol type: wine Hx Substance Use: No Review of Systems See HPI for pertinent positives & negatives. and A total of 10 systems reviewed and were otherwise negative Physical Exam Vital Signs Vital Signs - 24 hr 08/27/19 09:16 08/27/19 09:17 08/27/19 09:23 Temperature 36.7 C Temperature Source Oral Sepsis Recent Fever Within 48 Hours No Sepsis New/Unexplained Change in Mental Status No Sepsis Action Taken by Nursing No Action Required Pulse Rate 115 H 123 H Pulse Rate [Apical] Pulse Rate from SpO2 Sensor 118 H Pulse Rhythm Irregular Pulse Rhythm [Apical] Respiratory Rate 31 H 33 H Respiratory Effort / Characteristics Short of Breath Respiratory Depth Respiratory Pattern Blood Pressure 163/100 H 163/100 H Blood Pressure [Right Arm] Blood Pressure Mean 121 121 Blood Pressure Mean [Right Arm] Pulse Oximetry 96 94 94 Oxygen Delivery Method Nasal Cannula Nasal Cannula Oxygen Flow Rate 2 2 Fraction of Inspired Oxygen 08/27/19 10:22 08/27/19 10:29 08/27/19 10:30 Temperature Temperature Source Sepsis Recent Fever Within 48 Hours Sepsis New/Unexplained Change in Mental Status Sepsis Action Taken by Nursing Pulse Rate 131 H 133 H 134 H Pulse Rate [Apical] Pulse Rate from SpO2 Sensor 131 H 140 H Pulse Rhythm Pulse Rhythm [Apical] Respiratory Rate 22 24 24 Respiratory Effort / Characteristics Non-Labored Spontaneous Respiratory Depth Normal Respiratory Pattern Regular Blood Pressure 141/107 H 156/114 H Blood Pressure [Right Arm] Blood Pressure Mean 118 128 Blood Pressure Mean [Right Arm] Pulse Oximetry 100 90 86 L Oxygen Delivery Method Oxygen Flow Rate Fraction of Inspired Oxygen 30 08/27/19 10:50 08/27/19 11:00 08/27/19 11:30 Temperature Temperature Source Sepsis Recent Fever Within 48 Hours Sepsis New/Unexplained Change in Mental Status Sepsis Action Taken by Nursing Pulse Rate 137 H 131 H Pulse Rate [Apical] 129 H Pulse Rate from SpO2 Sensor 139 H 132 H Pulse Rhythm Pulse Rhythm [Apical] Irregular Respiratory Rate 33 H 25 H 28 H Respiratory Effort / Characteristics Short of Breath Respiratory Depth Respiratory Pattern Blood Pressure 155/128 H 145/103 H Blood Pressure [Right Arm] 156/114 H Blood Pressure Mean 137 117 Blood Pressure Mean [Right Arm] 128 Pulse Oximetry 97 100 98 Oxygen Delivery Method Nasal Cannula Oxygen Flow Rate 4 Fraction of Inspired Oxygen 08/27/19 11:35 08/27/19 11:41 08/27/19 11:46 Temperature Temperature Source Sepsis Recent Fever Within 48 Hours Sepsis New/Unexplained Change in Mental Status Sepsis Action Taken by Nursing Pulse Rate 138 H 107 H 116 H Pulse Rate [Apical] Pulse Rate from SpO2 Sensor 138 H 160 H Pulse Rhythm Pulse Rhythm [Apical] Respiratory Rate 34 H 28 H 30 H Respiratory Effort / Characteristics Respiratory Depth Respiratory Pattern Blood Pressure 173/114 H 133/100 118/111 H Blood Pressure [Right Arm] Blood Pressure Mean 133 111 113 Blood Pressure Mean [Right Arm] Pulse Oximetry 97 93 Oxygen Delivery Method Oxygen Flow Rate Fraction of Inspired Oxygen 08/27/19 11:56 08/27/19 12:00 08/27/19 12:05 Temperature Temperature Source Sepsis Recent Fever Within 48 Hours Sepsis New/Unexplained Change in Mental Status Sepsis Action Taken by Nursing Pulse Rate 104 H 112 H 110 H Pulse Rate [Apical] Pulse Rate from SpO2 Sensor 90 103 H 111 H Pulse Rhythm Pulse Rhythm [Apical] Respiratory Rate 31 H 30 H 31 H Respiratory Effort / Characteristics Respiratory Depth Respiratory Pattern Blood Pressure 128/93 117/83 140/77 Blood Pressure [Right Arm] Blood Pressure Mean 104 94 98 Blood Pressure Mean [Right Arm] Pulse Oximetry 96 95 99 Oxygen Delivery Method Oxygen Flow Rate Fraction of Inspired Oxygen 08/27/19 12:11 08/27/19 12:16 08/27/19 12:20 Temperature Temperature Source Sepsis Recent Fever Within 48 Hours Sepsis New/Unexplained Change in Mental Status Sepsis Action Taken by Nursing Pulse Rate 97 H 106 H 101 H Pulse Rate [Apical] Pulse Rate from SpO2 Sensor 104 H 104 H 103 H Pulse Rhythm Pulse Rhythm [Apical] Respiratory Rate 31 H 29 H 24 Respiratory Effort / Characteristics Respiratory Depth Respiratory Pattern Blood Pressure 97/82 L 121/88 121/96 Blood Pressure [Right Arm] Blood Pressure Mean 87 99 104 Blood Pressure Mean [Right Arm] Pulse Oximetry 98 99 98 Oxygen Delivery Method Oxygen Flow Rate Fraction of Inspired Oxygen 08/27/19 12:30 08/27/19 12:35 08/27/19 12:41 Temperature Temperature Source Sepsis Recent Fever Within 48 Hours Sepsis New/Unexplained Change in Mental Status Sepsis Action Taken by Nursing Pulse Rate 109 H 114 H 129 H Pulse Rate [Apical] Pulse Rate from SpO2 Sensor 118 H 124 H 132 H Pulse Rhythm Pulse Rhythm [Apical] Respiratory Rate 25 H 25 H 28 H Respiratory Effort / Characteristics Respiratory Depth Respiratory Pattern Blood Pressure 155/129 H 167/107 H 121/84 Blood Pressure [Right Arm] Blood Pressure Mean 137 127 96 Blood Pressure Mean [Right Arm] Pulse Oximetry 98 98 100 Oxygen Delivery Method Oxygen Flow Rate Fraction of Inspired Oxygen 08/27/19 12:46 08/27/19 12:51 08/27/19 12:56 Temperature Temperature Source Sepsis Recent Fever Within 48 Hours Sepsis New/Unexplained Change in Mental Status Sepsis Action Taken by Nursing Pulse Rate 119 H 116 H 112 H Pulse Rate [Apical] Pulse Rate from SpO2 Sensor 125 H 121 H 120 H Pulse Rhythm Pulse Rhythm [Apical] Respiratory Rate 30 H 30 H 20 Respiratory Effort / Characteristics Respiratory Depth Respiratory Pattern Blood Pressure 153/123 H 150/108 H 130/89 Blood Pressure [Right Arm] Blood Pressure Mean 133 122 102 Blood Pressure Mean [Right Arm] Pulse Oximetry 99 98 98 Oxygen Delivery Method Oxygen Flow Rate Fraction of Inspired Oxygen 08/27/19 13:00 Temperature Temperature Source Sepsis Recent Fever Within 48 Hours Sepsis New/Unexplained Change in Mental Status Sepsis Action Taken by Nursing Pulse Rate 127 H Pulse Rate [Apical] Pulse Rate from SpO2 Sensor 124 H Pulse Rhythm Pulse Rhythm [Apical] Respiratory Rate 23 Respiratory Effort / Characteristics Respiratory Depth Respiratory Pattern Blood Pressure 149/118 H Blood Pressure [Right Arm] Blood Pressure Mean 128 Blood Pressure Mean [Right Arm] Pulse Oximetry 98 Oxygen Delivery Method Oxygen Flow Rate Fraction of Inspired Oxygen GENERAL: Awake, alert, mild dyspneic HENT: Normocephalic, atraumatic. Oropharynx unremarkable. EYES: Normal conjunctiva. Sclera non-icteric. NECK: Supple. No nuchal rigidity. FROM. No JVD. RESPIRATORY: Diminished breath sounds at bilateral bases. CARDIAC: Tachycardic rate, irregular rhythm. Extremities warm and well perfused. Pulses equal. ABDOMEN: Soft, non-distended. No tenderness to palpation. No rebound or guarding. No masses. RECTAL: Deferred. MUSCULOSKELETAL: Chest examination reveals no tenderness. The back is symmetrica l on inspection without obvious abnormality. There is no CVA tenderness to palpation. No joint edema. LOWER EXTREMITIES: Calves are equal size bilaterally and non-tender.1+ bilateral LE edema.. No discoloration. NEURO: Normal sensorium. No sensory or motor deficits noted. SKIN: No rash or jaundice noted. Course 0958: Past medical records reviewed. The patient was evaluated in room B09, and a complete history and physical examination were performed. 1126: I reevaluated the patient and updated her on results. We also discussed the treatment plan and she is agreeable. 1201: I spoke to Ida Sauceda PAC under Dr. Ricky Nicole about the patient's case. They are going to accept the patient for further evaluation. Consultations Consultation #1: I spoke to Ida Sauceda PAC under Dr. Ricky Nicole about the patient's case. They are going to accept the patient for further evaluation. Time: 12:01 Administered Medications Apixaban (Eliquis) 5 mg PO BID DAO Stop: 09/26/19 20:59 Last Admin: 08/27/19 20:34 Dose: 5 mg Documented by: [id number] Buspirone HCl (Buspar) 10 mg PO BID DAO Stop: 09/26/19 20:59 Last Admin: 08/27/19 20:33 Dose: 10 mg Documented by: [id number] Gabapentin (Neurontin) 300 mg PO HS DAO Stop: 09/26/19 20:59 Last Admin: 08/27/19 20:33 Dose: 300 mg Documented by: [id number] Diltiazem HCl 125 mg/ Dextrose 125 mls @ 5 mls/hr IV .Q24H DAO Stop: 09/26/19 13:44 Last Admin: 08/27/19 13:59 Dose: 5 mg/hr, 5 mls/hr Documented by: [id number] Furosemide 40 mg/ Syringe 4 mls @ 4 mls/min IV BID DAO Stop: 09/26/19 20:59 Last Admin: 08/27/19 20:34 Dose: 4 mls/min Documented by: [id number] Discontinued Medications Apixaban (Eliquis) 5 mg PO NOW ONE Stop: 08/27/19 12:54 Last Admin: 08/27/19 13:52 Dose: 5 mg Documented by: [id number] Diltiazem HCl (Cardizem) 25 mg IV NOW STA Stop: 08/27/19 11:25 Last Admin: 08/27/19 11:32 Dose: 25 mg Documented by: [id number] Cosigned by: [id number] Diltiazem HCl (Cardizem Cd) 300 mg PO NOW ONE Stop: 08/27/19 13:30 Last Admin: 08/27/19 13:55 Dose: 300 mg Documented by: [id number] Furosemide (Lasix) 20 mg IV NOW STA Stop: 08/27/19 11:29 Last Admin: 08/27/19 12:36 Dose: 20 mg Documented by: [id number] Furosemide (Lasix) 20 mg IV NOW ONE Stop: 08/27/19 12:59 Last Admin: 08/27/19 13:54 Dose: 20 mg Documented by: [id number] Lorazepam (Ativan) 0.5 mg in 1 mls @ 0.5 mls/min IV NOW STA Stop: 08/27/19 10:39 Last Admin: 08/27/19 10:48 Dose: 0.5 mls/min Documented by: [id number] Losartan Potassium (Cozaar) 12.5 mg PO NOW ONE Stop: 08/27/19 13:16 Last Admin: 08/27/19 13:52 Dose: 12.5 mg Documented by: [id number] Metoprolol Tartrate (Lopressor) 25 mg PO NOW STA Stop: 08/27/19 13:27 Last Admin: 08/27/19 13:59 Dose: 25 mg Documented by: [id number] Potassium Chloride (Klor-Con M20) 40 meq PO NOW STA Stop: 08/27/19 11:31 Last Admin: 08/27/19 12:36 Dose: 40 meq Documented by: [id number] Medical Decision Making Differential Diagnosis Differential diagnoses includes but is not limited to pneumonia, bronchitis, COPD/Asthma exacerbation, pneumothorax, pulmonary embolism, congestive heart failure, acute coronary syndrome, amongst others. Medical Records Attestation: I reviewed the patient's medical records. Home Medications Current Medication List: was personally reviewed by me Laboratory Data Attestation: I reviewed the patient's lab results. Result diagrams: 08/27/19 10:06 08/27/19 10:06 Lab Results 08/27/19 08/27/19 08/27/19 Range/Units 10:06 10:06 10:06 WBC 8.46 (4.8-10.8) K/uL RBC 4.71 (4.2-5.4) M/uL Hgb 13.3 (12.0-16.0) g/dL Hct 41.2 (37-47) % MCV 87.5 (80-100) fL MCH 28.2 (25-34) pg MCHC 32.3 (32-36) g/dL RDW Std Deviation 51.6 H (36.4-46.3) fL RDW Coeff of Stephan 16.2 H (11.5-14.5) % Plt Count 308 (130-400) K/uL MPV 11.0 H (7.4-10.4) fL Immature Gran % (Auto) 0.4 % Neut % (Auto) 64.8 % Lymph % (Auto) 24.0 % [place] % (Auto) 9.3 % Eos % (Auto) 1.3 % Baso % (Auto) 0.2 % Immature Gran # (Auto) 0.03 H (0.00-0.02) K/uL Neut # (Auto) 5.48 (1.4-6.5) K/uL Lymph # (Auto) 2.03 (1.2-3.4) K/uL [place] # (Auto) 0.79 H (0.11-0.59) K/uL Eos # (Auto) 0.11 (0-0.5) K/uL Baso # (Auto) 0.02 (0-0.2) K/uL PT 12.4 H (9.0-12.0) Seconds INR 1.2 H (0.9-1.1) APTT 26.5 (21.0-31.0) Seconds PTT Ratio 1.0 VBG pH (7.36-7.41) VBG pCO2 (38-50) mmHg VBG pO2 mmHg VBG HCO3 mmol/L VBG O2 Saturation % VBG Base Excess mEq/L Barometric Pressure mm/Hg Sodium 144 (136-145) mmol/L Potassium 3.5 (3.5-5.1) mmol/L Chloride 113 H (98-107) mmol/L Carbon Dioxide 24 (21-32) mmol/L Anion Gap 7.0 (3-11) BUN 16 (7-18) mg/dl Creatinine 1.13 (0.6-1.2) mg/dl Est Cr Clr Drug Dosing 49.9 ml/min Est GFR ( Amer) 55.8 Est GFR (Non-Af Amer) 48.2 BUN/Creatinine Ratio 13.7 (10-20) Glucose 118 H (70-99) mg/dl Calcium 9.0 (8.5-10.1) mg/dl Phosphorus 3.7 (2.5-4.9) mg/dl Magnesium 2.1 (1.8-2.4) mg/dl Total Bilirubin 0.7 (0.2-1) mg/dl AST 11 L (15-37) U/L ALT 16 (12-78) U/L Alkaline Phosphatase 74 (45-117) U/L Troponin I < 0.015 (0-0.045) ng/ml NT-Pro-B Natriuret Pep 4492 H (0-900) pg/ml Total Protein 6.7 (6.4-8.2) gm/dl Albumin 3.2 L (3.4-5.0) gm/dl Globulin 3.5 (2.5-4.0) gm/dl Albumin/Globulin Ratio 0.9 (0.9-2) TSH 4.540 H (0.300-4.500) uIu/ml Free T4 1.17 (0.8-1.6) ng/dl Urine Color Urine Appearance (Clear) Urine pH (4.5-7.5) Ur Specific [place] (1.000-1.030) Urine Protein (Negative) Urine Glucose (UA) (Negative) Urine Ketones (Negative) Urine Blood (Negative) Urine Nitrite (Negative) Urine Bilirubin (Negative) Urine Urobilinogen (Negative) Ur Leukocyte Esterase (Negative) Urine WBC (Auto) (0-5) /hpf Urine RBC (Auto) (0-4) /hpf U Hyaline Cast (Auto) (0-5) /lpf U Epithel Cells (Auto) (0-5) /lpf Urine Bacteria (Auto) (Negative) Ur Renal Epithelial Cell Amorphous Sediment (None Prsent) Urine Mucus (None Prsent) 08/27/19 08/27/19 Range/Units 10:08 12:30 WBC (4.8-10.8) K/uL RBC (4.2-5.4) M/uL Hgb (12.0-16.0) g/dL Hct (37-47) % MCV (80-100) fL MCH (25-34) pg MCHC (32-36) g/dL RDW Std Deviation (36.4-46.3) fL RDW Coeff of Stephan (11.5-14.5) % Plt Count (130-400) K/uL MPV (7.4-10.4) fL Immature Gran % (Auto) % Neut % (Auto) % Lymph % (Auto) % [place] % (Auto) % Eos % (Auto) % Baso % (Auto) % Immature Gran # (Auto) (0.00-0.02) K/uL Neut # (Auto) (1.4-6.5) K/uL Lymph # (Auto) (1.2-3.4) K/uL [place] # (Auto) (0.11-0.59) K/uL Eos # (Auto) (0-0.5) K/uL Baso # (Auto) (0-0.2) K/uL PT (9.0-12.0) Seconds INR (0.9-1.1) APTT (21.0-31.0) Seconds PTT Ratio VBG pH 7.42 H (7.36-7.41) VBG pCO2 39 (38-50) mmHg VBG pO2 32 mmHg VBG HCO3 25 mmol/L VBG O2 Saturation 61.0 % VBG Base Excess 0.4 mEq/L Barometric Pressure 734.4 mm/Hg Sodium (136-145) mmol/L Potassium (3.5-5.1) mmol/L Chloride (98-107) mmol/L Carbon Dioxide (21-32) mmol/L Anion Gap (3-11) BUN (7-18) mg/dl Creatinine (0.6-1.2) mg/dl Est Cr Clr Drug Dosing ml/min Est GFR ( Amer) Est GFR (Non-Af Amer) BUN/Creatinine Ratio (10-20) Glucose (70-99) mg/dl Calcium (8.5-10.1) mg/dl Phosphorus (2.5-4.9) mg/dl Magnesium (1.8-2.4) mg/dl Total Bilirubin (0.2-1) mg/dl AST (15-37) U/L ALT (12-78) U/L Alkaline Phosphatase (45-117) U/L Troponin I (0-0.045) ng/ml NT-Pro-B Natriuret Pep (0-900) pg/ml Total Protein (6.4-8.2) gm/dl Albumin (3.4-5.0) gm/dl Globulin (2.5-4.0) gm/dl Albumin/Globulin Ratio (0.9-2) TSH (0.300-4.500) uIu/ml Free T4 (0.8-1.6) ng/dl Urine Color Dark Yellow Urine Appearance Turbid A (Clear) Urine pH 5.0 (4.5-7.5) Ur Specific [place] 1.025 (1.000-1.030) Urine Protein Trace H (Negative) Urine Glucose (UA) Negative (Negative) Urine Ketones Negative (Negative) Urine Blood 2+ H (Negative) Urine Nitrite Negative (Negative) Urine Bilirubin Negative (Negative) Urine Urobilinogen Negative (Negative) Ur Leukocyte Esterase Negative (Negative) Urine WBC (Auto) 1-5 (0-5) /hpf Urine RBC (Auto) 5-10 H (0-4) /hpf U Hyaline Cast (Auto) 1-5 (0-5) /lpf U Epithel Cells (Auto) >30 H (0-5) /lpf Urine Bacteria (Auto) Negative (Negative) Ur Renal Epithelial Cell Not Reportable Amorphous Sediment Present A (None Prsent) Urine Mucus Present A (None Prsent) Imaging Data Radiologist's Impression: Radiology results as stated below per my review and the radiologist's interpretation: XR chest 1V portable CLINICAL HISTORY: 74 years-old Female presenting with SOB. TECHNIQUE: Portable upright AP view of the chest was obtained. COMPARISON: 07/03/2019. FINDINGS: Atherosclerosis of the aortic arch. Cardiac silhouette enlarged. Mild pulmonary vascular prominence though this is slightly decreased from prior. Heterogeneous and coarsened lung markings. Minimal basilar opacities. Trace bilateral pleural effusions may be present. No pneumothorax. Degenerative changes of the thoracic spine. Surgical clips noted in the left breast indicating biopsy or lumpectomy. IMPRESSION: 1. Cardiomegaly with mild volume overload and congestive change. No uday pulm onary edema. 2. Suspected bibasilar atelectasis possible trace bilateral pleural effusions. Electronically signed by: Antelmo Cole M.D. 08/27/2019 10:46 AM ECG Data Attestation: I personally reviewed and interpreted this ECG as follows: Indication: + SOB/dyspnea Rate (beats per minute): 123 Rhythm: + atrial fibrillation (with RVR) ECG [place]: + Normal ECG ST segments: no ST elevation ECG Findings: + Other (Non specific ST & T wave abnormality, QTC of 518); no PACs and no PVCs Blood Pressure Blood Pressure Findings: Elevated blood pressure Blood Pressure Disposition: further management by hospitalist MDM Narrative The patient is a pleasant 74-year-old woman with a past medical history of A. fib on Eliquis, CHF, HTN who presents emergency department with worsening shortness of breath and increased weight gain per hpi. Patient was given 20 mg of IV diltiazem by EMS prior to arrival with improvement in heart rate from 160s 130s. On arrival patient is chronically ill-appearing with mild respiratory d istress, afebrile with heart rate in the 130s, O2 saturation 94% on 2L and otherwise vital signs stable. Patient did appear to have increased work of breathing and therefore was ordered for BiPAP however she was unable to tolerate this despite Ativan given her report of claustrophia. Chest x-ray does demonstrate venous congestion and bilateral pleural effusions. WBC, H/H, platelets wnl. Chemistry without acidosis. VBG unremarkable. LFTs and electrolytes unremarkable. Troponin negative. BNP 4400 without prior for comparison. Patient was given additional IV diltiazem for her RVR. Given the tiffany cecilia's symptoms with respiratory failure related to volume overload reasonable to admit the patient for further management. Patient was agreeable with this. Case was discussed with Sohail Garcia PA-C, who evaluate the patient for admission. Impression & Plan Atrial fibrillation with RVR, Congestive heart failure, Acute respiratory failure with hypoxia, On apixaban therapy Critical Care Time Critical Care Time: Yes Total Critical Care Time: 60 I have personally spent greater than 60 minutes of critical care time in the direct management of this patient. This includes bedside care, interpretation of diagnostic studies, and testing, discussion with consultants, patient, and family members, and other required patient management activities. This 60 minutes is in excess of all separately billable procedures. Discharge Plan Visit Data *Final* Discharge Date/Time: 08/27/19 14:02 Chief Complaint: Shortness of Breath/Dyspnea ED Provider: Eligio Merchant Discharge Problem: Atrial fibrillation with RVR, Congestive heart failure, Acute respiratory failure with hypoxia, On apixaban therapy Patient Disposition: Admitted As Inpatient Discharge Instructions Interventions: ED Discharge Assessment Last Done: 08/27/19 14:02 The scribe's documentation has been prepared under my direction and personally reviewed by me in its entirety. I confirm that the note above accurately reflects all work, treatment, procedures, and medical decision making performed by me.
[2019-08-27] MEDS: GABAPENTIN 300 MG CAP PO SCH (20:33)
[2019-08-27] MEDS: FUROSEMIDE 40 MG in SYRINGE 0 ML IV SCH (20:34)
[2019-08-27] MEDS: APIXABAN 5 MG TABLET PO SCH (20:34)
[2019-08-27] MEDS ORDERED: METOPROLOL TARTRATE 25 MG TAB PO SCH (21:00)
[2019-08-28 05:54] LABS: Hematocrit (blood only) 39.2 % (37-47); Hemoglobin 12.6 g/dL (12.0-16.0); Mean Corpuscular Hemoglobin 28.1 pg (25-34); Mean Corpuscular Hgb Conc 32.1 g/dL (32-36); Mean Corpuscular Volume 87.5 fL (80-100); Mean Platelet Volume 10.8 fL (7.4-10.4); Platelet Count 289 K/uL (130-400); RDW Coefficient of Variation 16.1 % (11.5-14.5); RDW Standard Deviation 51.5 fL (36.4-46.3); Red Blood Count 4.48 M/uL (4.2-5.4); White Blood Count 8.21 K/uL (4.8-10.8)
[2019-08-28] MEDS: LEVOTHYROXINE SODIUM 25 MCG TABLET PO SCH (05:57)
[2019-08-28 06:33] LABS: BUN Creatinine Ratio 11.8 (10-20); Calcium 8.6 mg/dl (8.5-10.1); Creatinine Clr Calc Pharmacy 49.9 ml/min; Est GFR (African American) 55.8; Est GFR (Non-African American) 48.2; Potassium 3.2 mmol/L (3.5-5.1)
[2019-08-28] MEDS: VENLAFAXINE HCL XR 75 MG CAPXR PO SCH (08:05)
[2019-08-28] MEDS: LOSARTAN POTASSIUM 25 MG TAB PO SCH (08:05)
[2019-08-28] MEDS: APIXABAN 5 MG TABLET PO SCH ×2 (08:06→21:33)
[2019-08-28] MEDS: FUROSEMIDE 40 MG in SYRINGE 0 ML IV SCH ×2 (08:12→19:42)
[2019-08-28] MEDS ORDERED: POTASSIUM CHLORIDE 10 MEQ TABCR PO STA (08:48)
[2019-08-28] MEDS ORDERED: POTASSIUM CHLORIDE 10 MEQ TABCR PO SCH (09:00)
[2019-08-28] MEDS: POTASSIUM CHLORIDE 10 MEQ TABCR PO SCH ×2 (09:24→21:32)
[2019-08-28] MEDS: MONTELUKAST SODIUM 10 MG TABLET PO SCH (09:24)
--- NOTE | 2019-08-28 11:38 | Pulmonary Consultation ---
Date of Consultation August 28, 2019 Assessment & Plan (1) Acute diastolic heart failure: Recommend continue IV diuresis and following her I/Os closely. I think she is responding to diuresis and she is feeling better today. Her BNP was severely elevated on admission. I do not think she has significant underlying asthma. She will need PFTs as an outpatient. Her history really is not very compelling for asthma and it seems that she has had significant improvement with diuresis as noted previously. I would limit her use of albuterol as this could potentiate her atrial fibrillation. I discussed with her checking her daily weight and taking extra dose of Lasix if her weight gain is substantial. She needs to monitor her weight daily with a scale at home and know what her dry weight is as well. Weight loss is advised. She would benefit from an outpatient sleep study. She needs follow-up with Dr. Anderson after discharge. Lastly, as of note, she does have some issues of medical compliance as noted above. She stopped medications on her own because she felt that she was taking too many medications. I did address this with her. Pulmonary will sign off. Please call us with questions. Thank you for the consult. (2) Mitral valve regurgitation: (3) Acute respiratory failure with hypoxia: (4) Medical non-compliance: History of Present Illness Reason for Consultation: Shortness of breath and possible asthma Attending Physician: Grady Griffiths MD History of Present Illness This is a 74-year-old female with past medical history of diastolic heart failure, mitral valve regurgitation, atrial fibrillation on Eliquis, arthritis who presented to the hospital due to increasing shortness of breath. Patient notes that for the last 2 weeks she has been feeling increasingly short of breath with an occasional wheeze and cough. She describes that she stopped most of her medications about 2 weeks ago for unclear reasons. She notes that she just felt that she was taking too many medications. She was started on IV diuresis in the hospital and feels about 50% better today. She denies any f cirilo, chills or weight loss. She does endorse some weight gain but cannot quantify how much. She notes that her legs were also swelling have decreased since admission.She does endorse night sweats on occasion. She lives alone at home and has a few steps that she has had trouble with walking up lately. She notes that she has been very short of breath walking just a few steps lately and is normally able to walk about 50-100 feet. She also notes that she has had significant Paroxysmal nocturnal dyspnea. She sleeps on a bed that is adjustable and has been sleeping and increased angle lately. She does endorse some seasonal allergies as well that manifest as rhinitis. She lives alone at home. She has a wall unit for air conditioning and forced oil and electric heating .Does have some carpeting at home. She has 1 dog. She is allergic to cats, grass and dust. She does mow the lawn's herself.She is a non-smoker. She notes that her parents smoked heavily when she was a child. She denies any respiratory issues as a child. 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 She also previously worked for [employer]. 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 She has been receiving IV Lasix in the hospital and has had substantial improvement in her symptoms. She had an elevated pro-BNP on admission of over 4000. Allergies Allergy/AdvReac Type Severity Reaction Status Date / Time adhesive Allergy Unknown HEAVIER Verified 08/27/19 09:30 SURG TAPE-REDNESS SORE SKIN cat dander Allergy Unknown ITCHY Verified 08/27/19 09:30 NOSE, ITCHY EYES,RUNNY NOSE grass pollen-perennial rye, Allergy Unknown GRASS,MOLD-ITCHY Verified 08/27/19 09:30 standar EYES RUNNY NOSE latex Allergy Unknown CONTACT Verified 08/27/19 09:30 DERMATITIS tetanus toxoid, adsorbed Allergy Unknown SWELLING Verified 08/27/19 09:30 AT SITE KOLE Inhibitors AdvReac Unknown COUGH Unverified 08/27/19 09:30 Home Medications Home Medications Medication Instructions Recorded Confirmed Type buspirone 10 mg PO BID 01/24/19 08/27/19 History montelukast 10 mg PO QAM 01/24/19 08/27/19 History albuterol sulfate 2 inh INHALATION Q4H PRN 07/03/19 08/27/19 History gabapentin 300 mg PO HS 07/03/19 08/27/19 History apixaban 5 mg tablet 5 mg PO BID 08/19/19 08/27/19 History hydrochlorothiazide 25 mg tablet 25 mg PO QAM 08/19/19 08/27/19 History losartan 25 mg tablet 12.5 mg PO QAM 08/19/19 08/27/19 History potassium chloride ER 10 mEq 10 meq PO DAILY 08/19/19 08/27/19 History capsule,extended release ipratropium-albuterol 3 ml INHALATION QID 08/27/19 08/27/19 History levothyroxine 25 mcg PO QAM 08/27/19 08/27/19 History metoprolol tartrate 25 mg PO BID 08/27/19 08/27/19 History venlafaxine 75 mg PO DAILY 08/27/19 08/27/19 History Patient History Medical History Chronic diastolic heart failure (Chronic) Mood disorder (Chronic) Depression (Chronic) HTN (hypertension) (Chronic) Prediabetes (Chronic) Asthma (Chronic) Scoliosis (Chronic) Arthritis (Chronic) History of DVT (deep vein thrombosis) Surgical History H/O: hysterectomy (Chronic) History of mastectomy (Chronic) Family History Other Heart disease Social History Preferred Language: Togolese Communication Ability: Effective 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 Eyes: PERRL, conjunctivae normal, anicteric sclerae ENMT: external ear and nose normal, oropharynx normal Neck: normal visual inspection Respiratory: normal respiratory effort, lungs clear to auscultation Cardiovascular: Rate/Rhythm: regular rate and regular rhythm Heart Sounds: normal S2 Extremities: + varicosities 1-2+ pitting edema bilateral lower extremity. She has varicose veins on her left leg. Gastrointestinal (Abdomen): normal bowel sounds, soft, nontender, no hepatosplenomegaly Musculoskeletal: no cyanosis or clubbing, extremities motor strength 5/5 Skin: no rashes, warm and dry She has a Red lesion on her forearm that was apparently from prior IV stick. Neurologic: PERRL, EOMI, accommodation nl, no face palsy, no dysarthria Psychiatric: A+Ox3, euthymic affect Lymphatic: no cervical or axillary lymphadenopathy Results & Data Vital Signs (Past 12 Hours) Vital Signs Temp Pulse Resp BP Pulse Ox 08/28/19 06:58 97.5 F L 93 H 20 136/88 90 08/28/19 03:00 97.5 F L 98 H 15 131/80 96 08/27/19 23:38 97.3 F L 98 H 20 128/75 96 Personally reviewed the patient's pertinent labs and chest imaging. PG Care Time/CCT Total # of Minutes Spent Total Time Spent with Patient: Total time spent is greater than 50% in coordination of care (as documented) at patient's floor/unit and/or counseling patient:
[2019-08-28] MEDS: dilTIAZem HCL 300 MG CAPCR PO SCH (12:41)
--- NOTE | 2019-08-28 12:54 | Cardiology Progress Note ---
Date of Service August 28, 2019 Assessment & Plan (1) Acute diastolic heart failure: (2) Atrial fibrillation with RVR: (3) Medical non-compliance: Restart Cardizem CD 300 mg daily. Wean diltiazem infusion as tolerated. Consider addition of low-dose metoprolol today pending heart rate response. Continue apixaban twice daily. Volume status improved since admission. Continue IV diuretic therapy. Follow daily weight, GFR, electrolytes, and fluid balance. Replace electrolytes as in dicated. I long discussion with the patient regarding importance of compliance. All questions answered to her satisfaction. Subjective Patient seen and examined the bedside. Heart rate improved overnight. Intravenous diltiazem infusing at 5 mg/h. She did not receive her a.m. dose of diltiazem CD. Metoprolol on hold due to active wheezing on admission. Fluid balance -3.7 L since admission. Renal function remains stable. Patient states overall she is feeling much better. Review of Systems Review of Systems: All systems reviewed & are unremarkable except as noted in HPI & below Physical Exam Physical Exam: General: NAD, AAO x3, well nourished. Obese. HEENT: Normocephalic. Atraumatic. Conjunctiva pink, no scleral icterus. Neck: No carotid bruits, the carotid upstrokes are brisk. Unable to assess neck veins due to body habitus. Heart: Irregular rhythm, tachycardic, normal S1 and S2. No murmur, or rub appreciated. PMI is not displaced. No RV heave. Lungs: Clear bilateral without rales , rhonchi, or wheeze. Abdomen: Normal bowel sounds. Soft. Nontender. No masses or organomegaly. No abdominal bruits. Extremities: 1+ bilateral pretibial edema. Pulses: radial=2/4, Dorsalis pedis =2/4, posterior tibial=2/4. Neuro: Cranial nerves grossly intact. No focal motor deficit. Results & Data Vital Signs (Past 12 Hours) Vital Signs Temp Pulse Resp BP Pulse Ox 08/28/19 11:13 36.4 C L 98 H 22 142/88 H 93 08/28/19 06:58 36.4 C L 93 H 20 136/88 90 08/28/19 03:00 36.4 C L 98 H 15 131/80 96
[2019-08-28] MEDS: dilTIAZem HCl 125 MG in DEXTROSE 5% 100 ML IV SCH (15:04)
--- NOTE | 2019-08-28 18:12 | Hospitalist Progress Note ---
Date of Service August 28, 2019 Assessment & Plan (1) Heart failure, diastolic, with acute decompensation: Patient is a 74-year-old female with H/O persistent atrial fibrillation on Eliquis, asthma, chronic diastolic heart failure, HTN, depression, hypothyroidism and other medical problems listed below who presents with progressive SOB and was found to have atrial fibrillation with RVR and acute decompensated diastolic heart failure. Acute on chronic diastolic heart failure Chest x-ray cardiomegaly with mild volume overload and congestive change. No uday pulmonary edema. Suspected bibasilar atelectasis possible trace bilateral pleural effusions Continue IV diuresis Monitor electrolytes, renal function, daily weight Continue supplemental oxygen as needed Appreciate cardiology input (2) Atrial fibrillation with RVR: A. fib RVR BORIS guided external direct current cardioversion attempted by Dr. Hilario on 07/15/19 but unsuccessful x 4 attempts Likely due to noncompliance with medications Wean off off Cardizem drip as able Restarted Cardizem p.o. 300 mg daily Plan to restart metoprolol as able On Eliquis for anticoagulation Cardiology on board (3) Acute respiratory failure with hypoxia: Acute respiratory failure with hypoxia Likely secondary to CHF exacerbation Needs PFTs, sleep study as outpatient Asthma exacerbation less likely Appreciate pulmonology input Continue singular Minimize albuterol use due to tachycardia Supplemental oxygen as needed (4) Mood disorder: Continue Venlafaxine, buspirone (5) HTN (hypertension): Presented with elevated hypertension Likely secondary to noncompliance Continue current medications Monitor blood pressure DVT Px: Eliquis Code status: FULL Disposition Likely discharge home when stable Subjective Patient is seen and examined at bedside Shortness of breath slightly better today Reports dry cough Leg swelling improved Denies any chest pain, palpitation, nausea, abdominal pain, dizziness On Cardizem drip Review of Systems Review of Systems: All systems reviewed & are unremarkable except as noted in HPI & below Physical Exam Physical Exam: Physical Exam: Vitals signs as noted above General Appearance:Moderately built and nourished, no apparent distress Head: normocephalic, Atraumatic Eyes: normal inspection, EOMI Neck: supple, Trachea midline Respiratory/Chest: Normal breath sounds, B/L wheezing Cardiovascular: Irregularly Irregular, +Tachycardia, No murmur Abdomen/GI:Soft, Non tender, Bowel sounds present Extremities/Musculoskelatal:normal inspection, B/L LE edema improving Neurologic/Psych:AAOX3, grossly no focal neurological deficits Skin: normal color, warm Results & Data Vital Signs (Past 12 Hours) Vital Signs Temp Pulse Resp BP Pulse Ox 08/28/19 15:22 36.5 C 109 H 18 124/71 97 08/28/19 11:13 36.4 C L 98 H 22 142/88 H 93 08/28/19 06:58 36.4 C L 93 H 20 136/88 90 Laboratory Results Short CBC 08/28/19 Range/Units 05:25 WBC 8.21 (4.8-10.8) K/uL Hgb 12.6 (12.0-16.0) g/dL Hct 39.2 (37-47) % Plt Count 289 (130-400) K/uL BMP 08/28/19 05:25 Sodium 141 Potassium 3.2 L Chloride 106 Carbon Dioxide 28 BUN 13 Creatinine 1.13 Glucose 105 H Calcium 8.6
[2019-08-28] MEDS: GABAPENTIN 300 MG CAP PO SCH (22:13)
[2019-08-29] MEDS ORDERED: COUGH DROP (SUGAR FREE) LOZ 24 LOZ/1 BOX BUCCAL STA (03:45)
[2019-08-29] MEDS: LEVOTHYROXINE SODIUM 25 MCG TABLET PO SCH (05:25)
[2019-08-29 05:49] LABS: Hematocrit (blood only) 39.7 % (37-47); Hemoglobin 13.3 g/dL (12.0-16.0); Mean Corpuscular Hemoglobin 29.1 pg (25-34); Mean Corpuscular Hgb Conc 33.5 g/dL (32-36); Mean Corpuscular Volume 86.9 fL (80-100); Mean Platelet Volume 10.9 fL (7.4-10.4); Platelet Count 317 K/uL (130-400); RDW Coefficient of Variation 15.8 % (11.5-14.5); RDW Standard Deviation 50.3 fL (36.4-46.3); Red Blood Count 4.57 M/uL (4.2-5.4); White Blood Count 9.01 K/uL (4.8-10.8)
[2019-08-29 06:16] LABS: BUN Creatinine Ratio 16.9 (10-20); Calcium 8.7 mg/dl (8.5-10.1); Creatinine Clr Calc Pharmacy 46.8 ml/min; Est GFR (African American) 54.1; Est GFR (Non-African American) 46.7; Magnesium 1.9 mg/dl (1.8-2.4); Potassium 3.5 mmol/L (3.5-5.1)
[2019-08-29] MEDS: FUROSEMIDE 40 MG in SYRINGE 0 ML IV SCH (08:07)
[2019-08-29] MEDS: LOSARTAN POTASSIUM 25 MG TAB PO SCH (08:07)
[2019-08-29] MEDS: dilTIAZem HCL 300 MG CAPCR PO SCH (08:08)
[2019-08-29] MEDS: MONTELUKAST SODIUM 10 MG TABLET PO SCH (08:09)
[2019-08-29] MEDS: APIXABAN 5 MG TABLET PO SCH ×2 (08:09→19:39)
[2019-08-29] MEDS: POTASSIUM CHLORIDE 10 MEQ TABCR PO SCH (08:10)
[2019-08-29] MEDS: VENLAFAXINE HCL XR 75 MG CAPXR PO SCH (08:10)
--- NOTE | 2019-08-29 11:40 | Cardiology Progress Note ---
Date of Service August 29, 2019 Assessment & Plan (1) Acute diastolic heart failure: Patient clinically improving with IV diuretics, heart rate controlled. Anticoagulated with apixaban Plan discontinue IV furosemide Add Toprol-XL 12.5 mg p.o. twice daily to diltiazem for heart rate control Change diuretics to furosemide 20 mg p.o. daily spironolactone 12.5 g p.o. day while holding Would recommend discontinuing Can catheter and increasing activity If blood pressure is low would hold losartan in setting of preserved LV function and nondiabetic (2) Atrial fibrillation with RVR: (3) Acute respiratory failure with hypoxia: Subjective Patient seen and examined, chart, medications, telemetry reviewed. Patient improved this morning heart rates lower, lower extremity edema improved less dyspneic. Patient ambulatory in room. No chest pains or discomfort. No dizziness or lightheadedness. No bleeding difficulties. Physical Exam Constitutional: WD/WN, vitals as above + obese; no acute distress Eyes: PERRL, conjunctivae normal, anicteric sclerae ENMT: external ear and nose normal, oropharynx normal Neck: trachea midline, no thyromegaly + thick neck Respiratory: normal respiratory effort, lungs clear to auscultation Cardiovascular: Rate/Rhythm: + irregularly irregular Heart Sounds: normal S1 and normal S2; no gallop and no murmur Palpation: normal PMI Vessels: normal carotid upstroke and radial pulses present; no JVD and no carotid bruit Extremities: + edema (Trace) Gastrointestinal (Abdomen): normal bowel sounds, soft, nontender, no hepatosplenomegaly Musculoskeletal: no cyanosis or clubbing, extremities motor strength 5/5 Skin: no rashes, warm and dry Neurologic: PERRL, EOMI, accommodation nl, no face palsy, no dysarthria Psychiatric: A+Ox3, euthymic affect Results & Data Vital Signs (Past 12 Hours) Vital Signs Temp Pulse Resp BP Pulse Ox 08/29/19 10:58 36.7 C 92 H 22 97/59 L 94 08/29/19 06:56 36.5 C 81 20 108/72 94 08/29/19 03:56 36.3 C L 85 22 108/61 96 08/29/19 00:07 36.5 C 82 20 122/73 95 Laboratory Results Laboratory Results - last 24 hr 08/29/19 08/29/19 05:24 05:24 WBC 9.01 RBC 4.57 Hgb 13.3 Hct 39.7 MCV 86.9 MCH 29.1 MCHC 33.5 RDW Std Deviation 50.3 H RDW Coeff of Stephan 15.8 H Plt Count 317 MPV 10.9 H Sodium 141 Potassium 3.5 Chloride 106 Carbon Dioxide 28 Anion Gap 7.0 BUN 20 H D Creatinine 1.16 Est Cr Clr Drug Dosing 46.8 Est GFR ( Amer) 54.1 Est GFR (Non-Af Amer) 46.7 BUN/Creatinine Ratio 16.9 Glucose 97 Calcium 8.7 Magnesium 1.9
--- NOTE | 2019-08-29 17:15 | Hospitalist Progress Note ---
Date of Service August 29, 2019 Assessment & Plan (1) Heart failure, diastolic, with acute decompensation: Patient is a 74-year-old female with H/O persistent atrial fibrillation on Eliquis, asthma, chronic diastolic heart failure, HTN, depression, hypothyroidism and other medical problems listed below who presents with progressive SOB and was found to have atrial fibrillation with RVR and acute decompensated diastolic heart failure. Acute on chronic diastolic heart failure Chest x-ray cardiomegaly with mild volume overload and congestive change. No uday pulmonary edema. Suspected bibasilar atelectasis possible trace bilateral pleural effusions IV diuresis transition to Lasix p.o. 20 mg daily, spironolactone to 12.5 mg daily Monitor electrolytes, renal function, daily weight Continue supplemental oxygen as needed Appreciate cardiology input (2) Atrial fibrillation with RVR: A. fib RVR BORIS guided external direct current cardioversion attempted by Dr. Hilario on 07/15/19 but unsuccessful x 4 attempts Likely due to noncompliance with medications Weaned off off Cardizem drip Continue Cardizem p.o. 300 mg daily Continue metoprolol 12.5 mg p.o. twice daily On Eliquis for anticoagulation Cardiology on board (3) Acute respiratory failure with hypoxia: Acute respiratory failure with hypoxia Likely secondary to CHF exacerbation Needs PFTs, sleep study as outpatient Asthma exacerbation less likely Appreciate pulmonology input Continue singular Minimize albuterol use due to tachycardia Supplemental oxygen as needed (4) Mood disorder: Continue Venlafaxine, buspirone (5) HTN (hypertension): Presented with elevated hypertension Likely secondary to noncompliance Continue current medications Monitor blood pressure Hold losartan if blood pressure low DVT Px: Eliquis Code status: FULL Disposition Likely discharge home when stable Subjective Patient is seen and examined at bedside Minimal CARRASCO Leg edema improved Denies any chest pain, palpitation, nausea, abdominal pain, dizziness Weaned off of Cardizem drip Review of Systems Review of Systems: All systems reviewed & are unremarkable except as noted in HPI & below Physical Exam Physical Exam: Physical Exam: Vitals signs as noted above General Appearance:Moderately built and nourished, no apparent distress Head: normocephalic, Atraumatic Eyes: normal inspection, EOMI Neck: supple, Trachea midline Respiratory/Chest: Normal breath sounds, CTA Cardiovascular: Irregularly Irregular, No murmur Abdomen/GI:Soft, Non tender, Bowel sounds present Extremities/Musculoskelatal:normal inspection, B/L LE edema improved Neurologic/Psych:AAOX3, grossly no focal neurological deficits Skin: normal color, warm Results & Data Vital Signs (Past 12 Hours) Vital Signs Temp Pulse Resp BP Pulse Ox 08/29/19 15:16 36.5 C 89 18 105/73 92 08/29/19 14:55 96 08/29/19 10:58 36.7 C 92 H 22 97/59 L 94 08/29/19 06:56 36.5 C 81 20 108/72 94 Laboratory Results Short CBC 08/29/19 Range/Units 05:24 WBC 9.01 (4.8-10.8) K/uL Hgb 13.3 (12.0-16.0) g/dL Hct 39.7 (37-47) % Plt Count 317 (130-400) K/uL BMP 08/29/19 05:24 Sodium 141 Potassium 3.5 Chloride 106 Carbon Dioxide 28 BUN 20 H D Creatinine 1.16 Glucose 97 Calcium 8.7
[2019-08-29] MEDS: METOPROLOL SUCC 25MG EXT REL TAB PO SCH (18:00)
[2019-08-29] MEDS: GABAPENTIN 300 MG CAP PO SCH (19:37)
[2019-08-30] MEDS: ACETAMINOPHEN 325 MG TAB PO PRN (04:55)
[2019-08-30] MEDS: LEVOTHYROXINE SODIUM 25 MCG TABLET PO SCH (05:59)
[2019-08-30 06:15] LABS: BUN Creatinine Ratio 20.2 (10-20); Est GFR (African American) 59.6; Est GFR (Non-African American) 51.5; Potassium 3.7 mmol/L (3.5-5.1)
[2019-08-30] MEDS: dilTIAZem HCL 300 MG CAPCR PO SCH (08:53)
[2019-08-30] MEDS: LOSARTAN POTASSIUM 25 MG TAB PO SCH (08:53)
[2019-08-30] MEDS: VENLAFAXINE HCL XR 75 MG CAPXR PO SCH (08:53)
[2019-08-30] MEDS: MONTELUKAST SODIUM 10 MG TABLET PO SCH (08:54)
[2019-08-30] MEDS: SPIRONOLACTONE 25 MG TAB PO SCH (08:54)
[2019-08-30] MEDS: METOPROLOL SUCC 25MG EXT REL TAB PO SCH ×3 (08:54→19:36)
[2019-08-30] MEDS: FUROSEMIDE 20 MG TAB PO SCH (08:55)
[2019-08-30] MEDS ORDERED: APIXABAN 2.5 MG TAB PO SCH (09:00)
--- NOTE | 2019-08-30 10:29 | Cardiology Progress Note ---
Date of Service August 30, 2019 Assessment & Plan (1) Acute diastolic heart failure: Patient clinically improving with IV diuretics, heart rate controlled. Anticoagulated with apixaban Plan discontinue IV furosemide Add Toprol-XL 12.5 mg p.o. twice daily to diltiazem for heart rate control Change diuretics to furosemide 20 mg p.o. daily spironolactone 12.5 g p.o. day while holding Patient without complaint this morning heart rate coming under slightly better control. Transient run of nonsustained VT last night concerning and patient may warrant ischemic work-up this admission Will keep npo after midnight (2) Atrial fibrillation with RVR: Rates improving. Still dyspnea with exertion (3) Acute respiratory failure with hypoxia: Subjective Patient seen and examined, chart, medications, telemetry reviewed. Clinically patient feels improved though still dyspneic with exertion Telemetry last night demonstrated 2 runs of nonsustained ventricular tachycardia, asymptomatic Patient denies any chest pains dizziness, lightheadedness Physical Exam Constitutional: WD/WN, vitals as above + obese; no acute distress Eyes: PERRL, conjunctivae normal, anicteric sclerae ENMT: external ear and nose normal, oropharynx normal Neck: trachea midline, no thyromegaly + thick neck Respiratory: normal respiratory effort, lungs clear to auscultation Cardiovascular: Rate/Rhythm: + irregularly irregular Heart Sounds: normal S1 and normal S2; no gallop and no murmur Palpation: normal PMI Vessels: normal carotid upstroke and radial pulses present; no JVD and no carotid bruit Extremities: + edema (Trace) Gastrointestinal (Abdomen): normal bowel sounds, soft, nontender, no hepatosplenomegaly Musculoskeletal: no cyanosis or clubbing, extremities motor strength 5/5 Skin: no rashes, warm and dry Neurologic: PERRL, EOMI, accommodation nl, no face palsy, no dysarthria Psychiatric: A+Ox3, euthymic affect Results & Data Vital Signs (Past 12 Hours) Vital Signs Temp Pulse Resp BP Pulse Ox 08/30/19 06:44 36.5 C 94 H 20 106/81 95 08/30/19 04:12 36.9 C 75 20 112/73 94 08/29/19 23:11 36.6 C 81 20 138/70 95 Laboratory Results Laboratory Results - last 24 hr 08/30/19 05:12 Sodium 139 Potassium 3.7 Chloride 104 Carbon Dioxide 30 Anion Gap 5.0 BUN 22 H Creatinine 1.07 Est Cr Clr Drug Dosing 51.0 Est GFR ( Amer) 59.6 Est GFR (Non-Af Amer) 51.5 BUN/Creatinine Ratio 20.2 H Glucose 99 Calcium 9.0
--- NOTE | 2019-08-30 14:10 | Hospitalist Progress Note ---
Date of Service August 30, 2019 Assessment & Plan (1) Heart failure, diastolic, with acute decompensation: Patient is a 74-year-old female with H/O persistent atrial fibrillation on Eliquis, asthma, chronic diastolic heart failure, HTN, depression, hypothyroidism and other medical problems listed below who presents with progressive SOB and was found to have atrial fibrillation with RVR and acute decompensated diastolic heart failure. Acute on chronic diastolic heart failure Chest x-ray cardiomegaly with mild volume overload and congestive change. No uday pulmonary edema. Suspected bibasilar atelectasis possible trace bilateral pleural effusions IV diuresis transition to Lasix p.o. 20 mg daily, spironolactone to 12.5 mg daily Monitor electrolytes, renal function, daily weight Continue supplemental oxygen as needed Appreciate cardiology input (2) Atrial fibrillation with RVR: A. fib RVR NSVT BORIS guided external direct current cardioversion attempted by Dr. Hilario on 07/15/19 but unsuccessful x 4 attempts Likely due to noncompliance with medications Weaned off off Cardizem drip Continue Cardizem 300 mg daily Increased metoprolol 12.5 mg TID Eliquis on hold for Cath in AM Cardiology on board NPO after midnight (3) Acute respiratory failure with hypoxia: Acute respiratory failure with hypoxia Likely secondary to CHF exacerbation Needs PFTs, sleep study as outpatient Asthma exacerbation less likely Appreciate pulmonology input Continue singular Minimize albuterol use due to tachycardia Supplemental oxygen as needed (4) Mood disorder: Continue Venlafaxine, buspirone (5) HTN (hypertension): Presented with elevated hypertension Likely secondary to noncompliance Continue current medications Monitor blood pressure Hold losartan for now DVT Px: Eliquis on hold Code status: FULL Disposition Likely discharge home when stable Subjective Patient is seen and examined at bedside Still has Minimal CARRASCO Also reports intermittent chest tightness associated with palpitations 2 runs of NSVT overnight Denies any nausea, abdominal pain, dizziness Review of Systems Review of Systems: All systems reviewed & are unremarkable except as noted in HPI & below Physical Exam Physical Exam: Physical Exam: Vitals signs as noted above General Appearance:Moderately built and nourished, no apparent distress Head: normocephalic, Atraumatic Eyes: normal inspection, EOMI Neck: supple, Trachea midline Respiratory/Chest: Normal breath sounds, CTA Cardiovascular: Irregularly Irregular, No murmur Abdomen/GI:Soft, Non tender, Bowel sounds present Extremities/Musculoskelatal:normal inspection, B/L LE edema improved Neurologic/Psych:AAOX3, grossly no focal neurological deficits Skin: normal color, warm Results & Data Vital Signs (Past 12 Hours) Vital Signs Temp Pulse Resp BP Pulse Ox Pulse Ox Pulse Ox 08/30/19 11:51 36.4 C L 88 17 126/83 94 08/30/19 10:55 98 97 08/30/19 06:44 36.5 C 94 H 20 106/81 95 08/30/19 04:12 36.9 C 75 20 112/73 94 Pulse Ox 08/30/19 11:51 08/30/19 10:55 98 08/30/19 06:44 08/30/19 04:12 Laboratory Results [facility] 08/30/19 05:12 Sodium 139 Potassium 3.7 Chloride 104 Carbon Dioxide 30 BUN 22 H Creatinine 1.07 Glucose 99 Calcium 9.0
[2019-08-30] MEDS: GABAPENTIN 300 MG CAP PO SCH (19:37)
[2019-08-30] MEDS ORDERED: APIXABAN 5 MG TABLET PO SCH (21:00)
[2019-08-31] MEDS: LEVOTHYROXINE SODIUM 25 MCG TABLET PO SCH (06:02)
[2019-08-31 06:32] LABS: BUN Creatinine Ratio 16.7 (10-20); Calcium 9.2 mg/dl (8.5-10.1); Est GFR (Non-African American) 55.2; Potassium 3.9 mmol/L (3.5-5.1)
[2019-08-31] MEDS ORDERED: NITROGLYCERIN SL 0.4 MG/TAB TAB SL STA (07:55)
[2019-08-31] MEDS: VENLAFAXINE HCL XR 75 MG CAPXR PO SCH (09:03)
[2019-08-31] MEDS: METOPROLOL SUCC 25MG EXT REL TAB PO SCH ×3 (09:04→22:55)
[2019-08-31] MEDS: dilTIAZem HCL 300 MG CAPCR PO SCH (09:05)
[2019-08-31] MEDS: SPIRONOLACTONE 25 MG TAB PO SCH (09:05)
[2019-08-31] MEDS: FUROSEMIDE 20 MG TAB PO SCH (09:06)
[2019-08-31] MEDS: MONTELUKAST SODIUM 10 MG TABLET PO SCH (09:06)
--- NOTE | 2019-08-31 09:42 | Cardiology Progress Note ---
Date of Service August 31, 2019 Assessment & Plan (1) Acute diastolic heart failure: Patient clinically improving with IV diuretics, heart rate controlled. Anticoagulated with apixaban Plan discontinue IV furosemide Add Toprol-XL 12.5 mg p.o. twice daily to diltiazem for heart rate control Change diuretics to furosemide 20 mg p.o. daily spironolactone 12.5 g p.o. day while holding Patient with once again episode of nonsustained VT last night Chest tightness this morning We will proceed with diagnostic cardiac catheterization later today apixaban on hold (2) Atrial fibrillation with RVR: Rates improving. Still dyspnea with exertion (3) Acute respiratory failure with hypoxia: Subjective Patient seen and examined, chart, medications, telemetry reviewed. Telemetry notable for 1 additional run of nonsustained VT last night Patient complains of mild chest tightness this morning. No tachypalpitations syncope or near syncope. No orthopnea worsening peripheral edema. Rhythm remains atrial fibrillation with generally controlled ventricular response rate Physical Exam Constitutional: WD/WN, vitals as above + obese; no acute distress Eyes: PERRL, conjunctivae normal, anicteric sclerae ENMT: external ear and nose normal, oropharynx normal Neck: trachea midline, no thyromegaly + thick neck Respiratory: normal respiratory effort, lungs clear to auscultation Cardiovascular: Rate/Rhythm: + irregularly irregular Heart Sounds: normal S1 and normal S2; no gallop and no murmur Palpation: normal PMI Vessels: normal carotid upstroke and radial pulses present; no JVD and no carotid bruit Extremities: + edema (Trace) Gastrointestinal (Abdomen): normal bowel sounds, soft, nontender, no hepatosplenomegaly Musculoskeletal: no cyanosis or clubbing, extremities motor strength 5/5 Skin: no rashes, warm and dry Neurologic: PERRL, EOMI, accommodation nl, no face palsy, no dysarthria Psychiatric: A+Ox3, euthymic affect Results & Data Vital Signs (Past 12 Hours) Vital Signs Temp Pulse Pulse Pulse Resp BP Pulse Ox 08/31/19 07:22 36.7 C 91 H 20 109/89 94 08/31/19 03:34 36.5 C 69 18 124/82 95 08/31/19 00:53 81 08/30/19 23:01 36.7 C 74 16 144/77 H 94 Laboratory Results Laboratory Results - last 24 hr 08/31/19 05:19 Sodium 141 Potassium 3.9 Chloride 104 Carbon Dioxide 31 Anion Gap 6.0 BUN 17 Creatinine 1.01 Est Cr Clr Drug Dosing 54.0 Est GFR ( Amer) 64.0 Est GFR (Non-Af Amer) 55.2 BUN/Creatinine Ratio 16.7 Glucose 104 H Calcium 9.2
[2019-08-31] MEDS: SODIUM CHLORIDE 0.9% 1000ML 1,000 ML IV SCH (10:00)
[2019-08-31] MEDS ORDERED: HEPARIN (PORCINE) 1000 UNIT/ML 10 ML (CATH LAB USE ONLY) ONE ×3 (13:50→15:37)
[2019-08-31] MEDS ORDERED: MIDAZOLAM HCL 1 MG/ML 2ML VIAL ONE ×2 (13:51→15:37)
[2019-08-31] MEDS ORDERED: NITROGLYCERIN/D5W 100MCG/ML 20ML SYR ONE ×2 (13:51→15:37)
[2019-08-31] MEDS ORDERED: fentaNYL citrate 100 MCG/2 ML VIAL ONE ×2 (13:51→15:37)
[2019-08-31] MEDS ORDERED: NiCARDipine HCL INJ 2.5 MG/ML 10 ML AMP ONE ×2 (13:51→15:37)
--- NOTE | 2019-08-31 14:09 | Pre Anesthesia Assessment ---
Date of Service August 31, 2019 Pre Sedation Assessment Vital Signs Temp Pulse Pulse Pulse Resp BP Pulse Ox 08/31/19 11:19 36.8 C 95 H 20 129/80 92 08/31/19 07:22 36.7 C 91 H 20 109/89 94 08/31/19 03:34 36.5 C 69 18 124/82 95 08/31/19 00:53 81 08/30/19 23:01 36.7 C 74 16 144/77 H 94 08/30/19 19:34 36.6 C 84 17 120/77 96 08/30/19 15:42 36.4 C L 76 18 103/67 96 Cardiovascular + irregularly irregular + S1 normal and + S2 normal Respiratory normal respiratory effort, lungs clear to auscultation Pre-Sedation Airway Assessment Smoking Status: Never smoker Hx Sleep Apnea: No Hx Difficult Intubation: No Short, Thick Neck: No Thyromental Distance: > or= 3.5 Finger Breadths Oral Cavity: + WNL Mallampati Class: IV ASA: ASA4 NPO Status Date of Last Intake of Fluids: 08/31/19 Time of Last Intake of Fluids: 08:00 Last Oral Intake of Fluids Comment: sip with meds Date of Last Intake of Solid Food: 08/30/19 Procedure Planning Contraindications for Sedation: none Current Medications Reviewed: Yes Notes The planned sedation has been discussed with the patient. Informed Consent was obtained. I have identified the patient, determined the appropriateness of sedation and have assessed the patient immediately prior to the procedure. All medicine(s) and interventions are by my order.
[2019-08-31] MEDS ORDERED: ADENOSINE IV SOLN 3 MG/ML 20 ML VIAL IV ONE (14:38)
--- NOTE | 2019-08-31 14:45 | Cardiac Catheterization ---
Cardiac Cath Procedure: Brief Procedure Date August 31, 2019 Pre-Procedure Diagnosis Pre-Procedure Diagnosis: Arrhythmia and Cardiothoracic Symptom AUC Score AUC Score: 7 Post-Procedure Diagnosis Post-Procedure Diagnosis: Moderate CAD Procedure(s) Performed Procedure(s) Performed: Coronary Angiography and Left Heart Cath [employer] Consultant Paul Toussaint MD Estimated Blood Loss Estimated Blood Loss: <15cc Medication(s) Medication(s): Fentanyl (12.5 mcg IV), Heparin (4000 units IV), Lidocaine 1% (Local infiltration access site), Nicardipine (250 mcg intra-arterial after arterial sheath insertion) and Versed (1 mg IV) Preliminary Findings Right dominant coronary anatomy Left main: Long with minimal irregularities and no calcium Left anterior descending: Type III in distribution within thin small caliber mid and apical segment. Gives rise to a moderate large bifurcating diagonal branch and 2 large septal branches in its midportion. Then gives rise to 2 thin diagonal branches in its mid apical second. Within the left anterior descending there is diffuse moderate luminal irregularities in its mid and apical portion with a discrete 50 to 60% at the juncture of the mid and apical segments. Left circumflex: Large but nondominant giving rise to a large high marginal branch which courses to the apex and trifurcates at its termination. The left circumflex then continues as a single posterior lateral branch of moderate caliber there is mild luminal irregularities in the circumflex system only Right coronary artery: Very large dominant vessel giving rise to a conus and a sinoatrial branch shortly after its origin at the AV groove along posterior descending artery and along the AV groove a large terminal posterior ventricular branch with a very large atrial branch. Within the right coronary artery there is a hazy 60% stenosis in its proximal third the distal vessel has mild luminal irregularities LV angiography not performed, LVEDP 17 Patient referred for and underwent FFR evaluation of the proximal right coronary artery, nonobstructive with separate report generated Impression: Moderate coronary atherosclerosis with eccentric 60% proximal right coronary artery stenosis, 50 to 60% narrowing the mid apical left anterior descending with this being a very thin caliber vessel Recommendations Recommendations: Medical Therapy and/or Counseling Specimens Specimens: None Fluids (cc crystalloids) Fluids (cc crystalloids): 10 Anesthesia Start time: 1413, stop time: 1438 Procedural Complication(s) None Disposition Recovery Room\PACU
--- NOTE | 2019-08-31 15:10 | Cardiac Catheterization ---
Cardiac Cath Procedure Full Procedure Date August 31, 2019 Pre-Procedure Diagnosis Pre-Procedure Diagnosis: Arrhythmia and Cardiothoracic Symptom AUC Score AUC Score: 7 Post-Procedure Diagnosis Post-Procedure Diagnosis: Moderate CAD Procedure(s) Performed Procedure(s) Performed: Coronary Angiography and Left Heart Cath Stroke Coordinator Paul Toussaint MD Estimated Blood Loss Estimated Blood Loss: <15cc Medication(s) Medication(s): Fentanyl (12.5 mcg IV), Heparin (4000 units IV), Lidocaine 1% (Local infiltration access site), Nicardipine (250 mcg intra-arterial after arterial sheath insertion) and Versed (1 mg IV) Summary of Findings Right dominant coronary anatomy Left main: Long with minimal irregularities and no calcium Left anterior descending: Type III in distribution within thin small caliber mid and apical segment. Gives rise to a moderate large bifurcating diagonal branch and 2 large septal branches in its midportion. Then gives rise to 2 thin diagonal branches in its mid apical second. Within the left anterior descending there is diffuse moderate luminal irregularities in its mid and apical portion with a discrete 50 to 60% at the juncture of the mid and apical segments. Left circumflex: Large but nondominant giving rise to a large high marginal branch which courses to the apex and trifurcates at its termination. The left circumflex then continues as a single posterior lateral branch of moderate caliber there is mild luminal irregularities in the circumflex system only Right coronary artery: Very large dominant vessel giving rise to a conus and a sinoatrial branch shortly after its origin at the AV groove along posterior descending artery and along the AV groove a large terminal posterior ventricular branch with a very large atrial branch. Within the right coronary artery there is a hazy 60% stenosis in its proximal third the distal vessel has mild luminal irregularities LV angiography not performed, LVEDP 17 Patient referred for and underwent FFR evaluation of the proximal right coronary artery, nonobstructive with separate report generated Impression: Moderate coronary atherosclerosis with eccentric 60% proximal right coronary artery stenosis, 50 to 60% narrowing the mid apical left anterior descending with this being a very thin caliber vessel Hemodynamics Rest Ao:: 139/86/108 Final Ao: 139/77/103 LV: 139/0/17 Recommendations Recommendations: Medical Therapy and/or Counseling Specimens Specimens: None Radiation Exposure (mGy) 1030 Contrast (mls) 49 Fluids (cc crystalloids) Fluids (cc crystalloids): 10 Anesthesia Start time: 1413, stop time: 1438 Procedural Complication(s) None Disposition Recovery Room\PACU I attest to the content of the Intraoperative Record and any orders documented therein. Any exceptions are noted below. 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 Cardiac Status Clinical evaluation leading to the procedure Patient is a 74-year-old female with persistent atrial fibrillation and difficult to control ventricular response rates hospitalized with diastolic heart failure, chest pressure and noted nonsustained ventricular tachycardia on telemetry CAD Presenation: Stable angina (Dyspnea on exertion) Anginal Classification: CCS III Heart Failure: No Cardiogenic Shock within 24 Hours: No Cardiac Arrest within 24 Hours: No Imaging Studies Past 6 Months: Yes Stress Studies Past 6 Months: No Standard Exercise Test: No Stress Echocardiogram: No Stress Testing w/SPECT MPI: No Cardiac CTA: No Coronary Anatomy Dominant: Right Left Main (% Stenosis): Normal LAD (% Stenosis): Mid (30) and Distal (60) D1 (% Stenosis): Proximal (30, small caliber) D2 (% Stenosis): Normal Circumflex (% Stenosis): Proximal (10) OM1 (% Stenosis): Proximal (30) L PL1 (% Stenosis): Normal RCA (% Stenosis): Proximal (60 eccentric) and Mid (20) R PDA (% Stenosis): Normal R PL1 (% Stenosis): Normal Diagnostic Physicians Name: Paul Toussaint MD Status: Urgent Closure Device Percutaneous Entry Location: Radial Closure Device: Radial Band Recommendations: Medical Therapy and/or Counseling
[2019-08-31] MEDS ORDERED: SODIUM CHLORIDE 0.9% 1000ML 1,000 ML IV SCH (15:15)
[2019-08-31] MEDS ORDERED: NOREPINEPHRINE BITARTRATE 1 MG/ML 4 ML VIAL (CATH LAB USE ONLY) ONE (15:27)
[2019-08-31] MEDS ORDERED: EPTIFIBATIDE 2 MG/ML 10 ML VIAL (CATH LAB USE ONLY) ONE ×2 (15:42→15:54)
[2019-08-31] MEDS ORDERED: EPTIFIBATIDE 0.75 MG/ML 75MG VIAL (CATH LAB USE ONLY) ONE (15:49)
--- NOTE | 2019-08-31 16:35 | Post Anesthesia Assessment ---
Date of Service August 31, 2019 Post Sedation Assessment Vital Signs Temp Pulse Pulse Pulse Resp BP Pulse Ox 08/31/19 15:20 85 16 57/46 L 91 08/31/19 15:05 81 16 115/66 91 08/31/19 11:19 98.2 F 95 H 20 129/80 92 08/31/19 07:22 98.1 F 91 H 20 109/89 94 08/31/19 03:34 97.7 F 69 18 124/82 95 08/31/19 00:53 81 08/30/19 23:01 98.1 F 74 16 144/77 H 94 08/30/19 19:34 97.9 F 84 17 120/77 96 Recovery Score Activity: Moves 4 extremities Respiration: Deep Breath/Cough Circulation: +/-20% PreAnes Value Consciousness: Arouseable (by name) Oxygen Saturation: > 92% On Room Air Post Anesthesia Score: 9 Discharge Sedation Level of Care: Fast Track Phase II Post Sedation Plan On clinical assessment, the patient appears to have tolerated the sedation without complications. Patient is recovering as anticipated. Patient will continue to be monitored by nursing and may be discharged when sedation discharge criteria are met per below protocol. Upon Completions of procedure and additional 15 minutes continue every 5 minute vital signs and the P.A.R. score; then discharge to a Phase I or Fast Track to Phase II per the following guidelines: * Discharge Patient to appropriate Phase II area if PAR is 8 or greater or return to pre- procedure baseline. The post - procedure orders will be as directed. * If PAR score is less than 8 or not return to pre-procedure baseline then patient will follow Phase I monitoring till PAR is reached for Phase II. The Phase I may be done in procedure room or may call to secure a Phase I area. * If naloxone or flumazenil are used for reversal, hold in Phase I for continued monitoring from when last reversal dose was given for a minimum of 60 minutes or longer pending the nurse and/or physician discretion of patient condition before discharge to Phase II. Please call the Sedation Physician to re-evaluate and complete post-note for discharge to Phase II area. Do NOT discharge from procedure sedation or Phase 1 until post- sedation evaluation note is complete by procedure /sedation MD Sedation Discharge Instructions to be given to the patient at discharge to home.
[2019-08-31] MEDS ORDERED: CLOPIDOGREL BISULFATE 300 MG TAB ONE (16:48)
--- NOTE | 2019-08-31 16:48 | Cardiac Catheterization ---
[facility] Data: [employer] Carpenter Cardiac Status Clinical evaluation leading to the procedure CAD Presenation: STEMI Anginal Classification: CCS IV Heart Failure: No Cardiogenic Shock within 24 Hours: No Cardiac Arrest within 24 Hours: No Imaging Studies Past 6 Months: Yes Stress Studies Past 6 Months: No Diagnostic Physicians Name: Lavelle Akhtar MD Status: Elective Closure Device Percutaneous Entry Location: Femoral Closure Device: Angio-Seal Recommendations: Medical Therapy and/or Counseling and PCI without planned CABG PCI Indication: PCI for STEMI - Stable Lesion Segment Name: proximal RCA Culprit Artery: Yes Stenosis Prior to Rx (%): 60 Chronic Total Occlusion: No IVUS: No FFR: No Pre-Procedure AQUILINO Flow: 2 Previously Treated Lesion: No Lesion Complexity: Non-High/Non-C Thrombus Present: Yes Bifurcation Lesion: No Guidewire Across Lesion: Stenosis Post-Procedure (%): 0 Post-Procedure AQUILINO Flow: 3 Devices(s) Deployed: Yes Yes Intraprocedure Events Significant Disection: No Perforation: No Cardiac Cath Procedure Full Procedure Date August 31, 2019 Pre-Procedure Diagnosis Pre-Procedure Diagnosis: STEMI and Cardiothoracic Symptom AUC Score AUC Score: 9 Post-Procedure Diagnosis Post-Procedure Diagnosis: Severe CAD and Successful PCI Procedure(s) Performed Procedure(s) Performed: Coronary Angiography, Drug Eluting Stent, IVUS and Fractional Flow [employer] Associate Lavelle Akhtar MD Industrial Safety Engineer(s) Kamar Prado Estimated Blood Loss Estimated Blood Loss: <15cc Medication(s) Medication(s): Adenosine, Fentanyl (12.5 mcg IV), Heparin (4000 units IV), Integrilin, Lidocaine 1% (Local infiltration access site), Nicardipine (250 mcg intra-arterial after arterial sheath insertion), Nitroglycerin and Versed (1 mg IV) Summary of Findings Indication: Exertional dyspnea/CAD, Inferior ST elevations Access: 6Fr right radial artery 6Fr right VICE PRESIDENT LENDING Catheters: JR4 guide Findings: For full details of patient's initial coronary angiography please see cath repor t dictated by Dr. Toussaint. Briefly patient found to have a intermediate proximal-mid RCA lesion. Decision to proceed with FFR. - RCA cannulated with JR4 guide - BMW wire placed into distal RCA - ACIST FFR catheter placed into mid RCA - FFR 0.92 - Post procedure angiography revealed no coronary complications. - Patient returned to holding area where became hypotensive, pale with chest pain and inferior ST elevations. - Brought back emergently to clinical laboratory aide for repeat angiography. -- PCI -- Antithrombotic therapy: Heparin, integrilin, clopidogrel Procedure: - 6Fr sheath placed to RT VICE PRESIDENT LENDING - RCA cannulated with JR4 guide - RCA found to have clot in proximal, mid and distal segments with some apparent clot/dye hang-up in distal branches of PDA. - Started on IV integrilin - BMW wire placed into distal vessel - Post integrilin thombus improved. - IVUS catheter placed into distal vessel - pullback revealed no residual intra- vessel thrombus and minimal disease in mid segment. Proximal lesion with circumferential calcium, ~50-60% stenosis. - Decision made to stent proximal lesion and 4.0 x 15 mm [place] JAILENE placed - Stent post-dilated with 4.0 noncompliant balloon - IC vasodilators administered for spasm - Post procedure AQUILINO 3 flow, stent well expanded with minimal residual stenosis and no apparent cardiac complications. Arterial Closure: Angio-Seal Summary: 1. Acute diffuse RCA thrombosis post FFR procedure. 2. Calcified, moderate to severe proximal RCA stenosis. 3. Successful PCI of proximal RCA with single JAILENE (4.0 x 15 [place]). Recommendations: To PCU for continued monitoring Continue integrilin for 4 hrs Loaded with clopidogrel 600mg in clinical laboratory aide Resume Eliquis tomorrow and continue dual therapy with clopidogrel, DOAC for at least 6 months. Continue statin, and ASCVD risk factor modification Consult cardiac Rehab Hemodynamics Rest Ao:: 100/62/80 Final Ao: 106/61/78 LV: -- Recommendations Recommendations: Medical Therapy and/or Counseling and PCI without planned CABG Specimens Specimens: None Radiation Exposure (mGy) 1303 Contrast (mls) 80 Fluids (cc crystalloids) Fluids (cc crystalloids): 600 Drains Drains: none Anesthesia moderate Procedural Complication(s) None Disposition PCU I attest to the content of the Intraoperative Record and any orders documented therein. Any exceptions are noted below.
--- NOTE | 2019-08-31 16:55 | Cardiology Progress Note ---
Date of Service August 31, 2019 Subjective Event summary of this afternoon. Patient underwent diagnostic coronary angiography via right radial access with hazy moderate 50 to 60% narrowing of the proximal right coronary noted. Patient underwent FFR evaluation without obstructive disease discerned with uneventful procedure and appropriate therapies She returned to the holding area post procedure where she developed sudden onset chest pressure pain shortness of breath and diaphoresis transient hypotension. EKG reflected acute ST elevation inferior leads with posterior reflection and patient returned emergently to the diagnostic cardiac catheterization lab. Full report per Dr. Akhtar. In summary patient had diffuse thrombus initially through the right coronary artery which improved dramatically with Integrilin infusion. EDUARDO of the proximal right coronary lesion did not demonstrate an acute plaque but given transient change in size and acute event elected to to receive drug-eluting stent to this area. With good result Patient symptoms resolved and Research Kennel Supervisor promptly Second procedure was performed via right femoral access Plan: Plavix load given in the Research Kennel Supervisor and will continue orally daily. Patient to complete Integrilin infusion this evening Resume Eliquis in a.m. after evaluated Results & Data Vital Signs (Past 12 Hours) Vital Signs Temp Pulse Resp BP Pulse Ox 08/31/19 16:40 92 H 18 107/82 93 08/31/19 16:25 90 18 130/92 93 08/31/19 15:20 85 16 57/46 L 91 08/31/19 15:05 81 16 115/66 91 08/31/19: 36.8 C 95 H 20 129/80 92 08/31/19 07:22 36.7 C 91 H 20 109/89 94
[2019-08-31] MEDS ORDERED: EPTIFIBATIDE BOLUS/DRIP IV STA (17:07)
[2019-08-31] MEDS ORDERED: EPTIFIBATIDE 75 MG/100 ML VIAL IV SCH (17:15)
--- NOTE | 2019-08-31 18:12 | Hospitalist Progress Note ---
Date of Service August 31, 2019 Assessment & Plan (1) Heart failure, diastolic, with acute decompensation: Patient is a 74-year-old female with H/O persistent atrial fibrillation on Eliquis, asthma, chronic diastolic heart failure, HTN, depression, hypothyroidism and other medical problems listed below who presents with progressive SOB and was found to have atrial fibrillation with RVR and acute decompensated diastolic heart failure. Acute on chronic diastolic heart failure Chest x-ray cardiomegaly with mild volume overload and congestive change. No uday pulmonary edema. Suspected bibasilar atelectasis possible trace bilateral pleural effusions IV diuresis transition to Lasix p.o. 20 mg daily, spironolactone to 12.5 mg daily Monitor electrolytes, renal function, daily weight Continue supplemental oxygen as needed Appreciate cardiology input STEMI Coronary artery disease 08/31/19: S/P cardiac cath: Moderate coronary atherosclerosis with eccentric 60% proximal right coronary artery stenosis, 50 to 60% narrowing the mid apical left anterior descending with this being a very thin caliber vessel 08/31/19: Repeat Cardiac Cath:Acute diffuse RCA thrombosis post FFR procedure. Calcified, moderate to severe proximal RCA stenosis. Successful PCI of proximal RCA with single JAILENE (4.0 x 15 [place]). Needs dual antiplatelet therapy for at least 6 months Plan to resume Eliquis tomorrow Cardiac rehab Continue statin Appreciate Cardiology help (2) Atrial fibrillation with RVR: A. fib RVR NSVT BORIS guided external direct current cardioversion attempted by Dr. Hilario on 07/15/19 but unsuccessful x 4 attempts Likely due to noncompliance with medications Weaned off off Cardizem drip Continue Cardizem 300 mg daily Increased metoprolol 12.5 mg TID Plan to resume Eliquis in AM Cardiology on board (3) Acute respiratory failure with hypoxia: Acute respiratory failure with hypoxia Likely secondary to CHF exacerbation Needs PFTs, sleep study as outpatient Asthma exacerbation less likely Appreciate pulmonology input Continue singular Minimize albuterol use due to tachycardia Supplemental oxygen as needed (4) Mood disorder: Continue Venlafaxine, buspirone (5) HTN (hypertension): Presented with elevated hypertension Likely secondary to noncompliance Continue current medications Monitor blood pressure Hold losartan for now DVT Px: SCDs Eliquis on hold Code status: FULL Disposition Likely discharge home when stable Subjective Patient is seen and examined at bedside Transient chest pain this morning Had cardiac catheterization today Had 1 NSVT overnight Denies any nausea, SOB, abdominal pain, dizziness Review of Systems Review of Systems: All systems reviewed & are unremarkable except as noted in HPI & below Physical Exam Physical Exam: Physical Exam: Vitals signs as noted above General Appearance:Moderately built and nourished, no apparent distress Head: normocephalic, Atraumatic Eyes: normal inspection, EOMI Neck: supple, Trachea midline Respiratory/Chest: Normal breath sounds, CTA Cardiovascular: Irregularly Irregular, No murmur Abdomen/GI:Soft, Non tender, Bowel sounds present Extremities/Musculoskelatal:normal inspection, B/L LE edema improved Neurologic/Psych:AAOX3, grossly no focal neurological deficits Skin: normal color, warm Results & Data Vital Signs (Past 12 Hours) Vital Signs Temp Pulse Resp BP Pulse Ox 08/31/19 17:31 36.6 C 92 H 18 127/100 96 08/31/19 17:25 36.3 C L 95 H 17 128/70 97 08/31/19 16:40 92 H 18 107/82 93 08/31/19 16:25 90 18 130/92 93 08/31/19 15:20 85 16 57/46 L 91 08/31/19 15:05 81 16 115/66 91 08/31/19 11:19 36.8 C 95 H 20 129/80 92 08/31/19 07:22 36.7 C 91 H 20 109/89 94 Laboratory Results [facility] 08/31/19 05:19 Sodium 141 Potassium 3.9 Chloride 104 Carbon Dioxide 31 BUN 17 Creatinine 1.01 Glucose 104 H Calcium 9.2
[2019-08-31] MEDS: ACETAMINOPHEN 325 MG TAB PO PRN (18:14)
[2019-08-31] MEDS: GABAPENTIN 300 MG CAP PO SCH (22:55)
[2019-09-01 06:14] LABS: Hematocrit (blood only) 40.6 % (37-47); Hemoglobin 13.1 g/dL (12.0-16.0); Mean Corpuscular Hemoglobin 28.3 pg (25-34); Mean Corpuscular Hgb Conc 32.3 g/dL (32-36); Mean Corpuscular Volume 87.7 fL (80-100); Mean Platelet Volume 10.8 fL (7.4-10.4); Platelet Count 302 K/uL (130-400); RDW Coefficient of Variation 15.7 % (11.5-14.5); RDW Standard Deviation 50.7 fL (36.4-46.3); Red Blood Count 4.63 M/uL (4.2-5.4); White Blood Count 10.81 K/uL (4.8-10.8)
[2019-09-01] MEDS: LEVOTHYROXINE SODIUM 25 MCG TABLET PO SCH (06:14)
[2019-09-01] MEDS: SODIUM CHLORIDE 0.9% 1000ML 1,000 ML IV SCH (06:22)
[2019-09-01 06:53] LABS: BUN Creatinine Ratio 15.1 (10-20); Calcium 9.1 mg/dl (8.5-10.1); Creatinine Clr Calc Pharmacy 55.6 ml/min; Est GFR (African American) 65.5; Est GFR (Non-African American) 56.5; Magnesium 2.4 mg/dl (1.8-2.4)
[2019-09-01] MEDS: METOPROLOL SUCC 25MG EXT REL TAB PO SCH ×3 (08:59→20:23)
[2019-09-01] MEDS: VENLAFAXINE HCL XR 75 MG CAPXR PO SCH (09:00)
[2019-09-01] MEDS: CLOPIDOGREL BISULFATE 75 MG TAB PO SCH (09:01)
[2019-09-01] MEDS: APIXABAN 5 MG TABLET PO SCH ×2 (09:01→20:24)
[2019-09-01] MEDS: SPIRONOLACTONE 25 MG TAB PO SCH (09:02)
[2019-09-01] MEDS: MONTELUKAST SODIUM 10 MG TABLET PO SCH (09:03)
[2019-09-01] MEDS: FUROSEMIDE 20 MG TAB PO SCH (09:03)
[2019-09-01] MEDS: dilTIAZem HCL 300 MG CAPCR PO SCH (09:04)
--- NOTE | 2019-09-01 15:00 | Hospitalist Progress Note ---
Date of Service September 01, 2019 Assessment & Plan (1) Heart failure, diastolic, with acute decompensation: Patient is a 74-year-old female with H/O persistent atrial fibrillation on Eliquis, asthma, chronic diastolic heart failure, HTN, depression, hypothyroidism and other medical problems listed below who presents with progressive SOB and was found to have atrial fibrillation with RVR and acute decompensated diastolic heart failure. Acute on chronic diastolic heart failure Chest x-ray cardiomegaly with mild volume overload and congestive change. No uday pulmonary edema. Suspected bibasilar atelectasis possible trace bilateral pleural effusions IV diuresis transition to Lasix p.o. 20 mg daily, spironolactone to 12.5 mg daily Monitor electrolytes, renal function, daily weight Continue supplemental oxygen as needed Appreciate cardiology input STEMI Coronary artery disease 08/31/19: S/P cardiac cath: Moderate coronary atherosclerosis with eccentric 60% proximal right coronary artery stenosis, 50 to 60% narrowing the mid apical left anterior descending with this being a very thin caliber vessel 08/31/19: Repeat Cardiac Cath:Acute diffuse RCA thrombosis post FFR procedure. Calcified, moderate to severe proximal RCA stenosis. Successful PCI of proximal RCA with single JAILENE (4.0 x 15 [place]). Continue Plavix Eliquis resumed today Started on Lipitor Check lipid panel Cardiac rehab Appreciate Cardiology help (2) Atrial fibrillation with RVR: A. fib RVR NSVT BORIS guided external direct current cardioversion attempted by Dr. Hilario on 07/15/19 but unsuccessful x 4 attempts Likely due to noncompliance with medications Weaned off off Cardizem drip Continue Cardizem 300 mg daily Increased metoprolol 12.5 mg TID On Eliquis for anticoagulation Cardiology on board (3) Acute respiratory failure with hypoxia: Acute respiratory failure with hypoxia Likely secondary to CHF exacerbation Needs PFTs, sleep study as outpatient Asthma exacerbation less likely Appreciate pulmonology input Continue singular Minimize albuterol use due to tachycardia Supplemental oxygen as needed (4) Mood disorder: Continue Venlafaxine, buspirone (5) HTN (hypertension): Presented with elevated hypertension Likely secondary to noncompliance Continue current medications Monitor blood pressure Hold losartan for now DVT Px: Eliquis Code status: FULL Disposition Likely discharge home with Home Health when medically stable Subjective Patient is seen and examined at bedside Reports mild frontal headache and feels tired Mild leukocytosis today, afebrile Denies any chest pain, palpitations, SOB, dizziness Had cardiac catheterization yesterday Also denies any nausea, SOB, abdominal pain Review of Systems Review of Systems: All systems reviewed & are unremarkable except as noted in HPI & below Physical Exam Physical Exam: Physical Exam: Vitals signs as noted above General Appearance:Moderately built and nourished, no apparent distress Head: normocephalic, Atraumatic Eyes: normal inspection, EOMI Neck: supple, Trachea midline Respiratory/Chest: Normal breath sounds, CTA Cardiovascular: Irregularly Irregular, No murmur Abdomen/GI:Soft, Non tender, Bowel sounds present Extremities/Musculoskelatal:normal inspection, B/L LE edema improved Neurologic/Psych:AAOX3, grossly no focal neurological deficits Skin: normal color, warm Results & Data Vital Signs (Past 12 Hours) Vital Signs Temp Pulse Pulse Pulse Resp BP Pulse Ox 09/01/19 13:56 92 H 147/82 H 09/01/19 11:22 37 C 89 18 108/73 95 09/01/19 08:00 78 09/01/19 07:44 36.6 C 87 18 141/86 H 94 09/01/19 04:00 36.3 C L 86 20 129/80 96 Laboratory Results Short CBC 09/01/19 Range/Units 05:25 WBC 10.81 H (4.8-10.8) K/uL Hgb 13.1 (12.0-16.0) g/dL Hct 40.6 (37-47) % Plt Count 302 (130-400) K/uL BMP 09/01/19 05:25 Sodium 141 Potassium 4.0 Chloride 105 Carbon Dioxide 31 BUN 15 Creatinine 0.99 Glucose 103 H Calcium 9.1
--- NOTE | 2019-09-01 15:15 | Cardiology Progress Note ---
Date of Service September 01, 2019 Assessment & Plan (1) ACS (acute coronary syndrome): Cardiac catheterization performed on 08/31/2019 demonstrated hazy proximal right coronary stenosis. Lesion was interrogated by flow wire and shortly after patient developed acute coronary syndrome with right coronary artery diffuse thrombosis. Patient responded to IV Integrilin. Proximal right coronary artery lesion stented successfully with clinical improvement Patient tolerated the events well except for superficial ecchymoses Plan: Restart apixaban, continue aspirin x30 days then discontinue continue clopidogrel 75 mill grams per day treat lipids as already started (2) Acute diastolic heart failure: Clinically improved (3) Atrial fibrillation with RVR: Rates improving. Willing increase Toprol to 25 mg twice per day (4) Acute respiratory failure with hypoxia: Subjective Patient seen and examined, chart, medications, telemetry reviewed. Patient complains of bruising and ecchymoses this morning but otherwise no complaints. Breathing is somewhat easier. She remains in atrial fibrillation with variable rate response. No chest pains or discomfort Physical Exam Constitutional: WD/WN, vitals as above + obese; no acute distress Eyes: PERRL, conjunctivae normal, anicteric sclerae ENMT: Mallampati Class: IV Neck: trachea midline, no thyromegaly + thick neck Respiratory: normal respiratory effort, lungs clear to auscultation Cardiovascular: Rate/Rhythm: + irregularly irregular Heart Sounds: normal S1 and normal S2; no gallop and no murmur Palpation: normal PMI Vessels: normal carotid upstroke and radial pulses present; no JVD and no carotid bruit Extremities: no edema Right radial and right femoral access sites without hematoma Gastrointestinal (Abdomen): normal bowel sounds, soft, nontender, no hepatosplenomegaly Musculoskeletal: no cyanosis or clubbing, extremities motor strength 5/5 Skin: no rashes, warm and dry Neurologic: PERRL, EOMI, accommodation nl, no face palsy, no dysarthria Psychiatric: A+Ox3, euthymic affect Results & Data Vital Signs (Past 12 Hours) Vital Signs Temp Pulse Pulse Pulse Resp BP Pulse Ox 09/01/19 13:56 92 H 147/82 H 09/01/19 11:22 37 C 89 18 108/73 95 09/01/19 08:00 78 09/01/19 07:44 36.6 C 87 18 141/86 H 94 09/01/19 04:00 36.3 C L 86 20 129/80 96 Laboratory Results Laboratory Results - last 24 hr 09/01/19 09/01/19 05:25 05:25 WBC 10.81 H RBC 4.63 Hgb 13.1 Hct 40.6 MCV 87.7 MCH 28.3 MCHC 32.3 RDW Std Deviation 50.7 H RDW Coeff of Stpehan 15.7 H Plt Count 302 MPV 10.8 H Sodium 141 Potassium 4.0 Chloride 105 Carbon Dioxide 31 Anion Gap 5.0 BUN 15 Creatinine 0.99 Est Cr Clr Drug Dosing 55.6 Est GFR ( Amer) 65.5 Est GFR (Non-Af Amer) 56.5 BUN/Creatinine Ratio 15.1 Glucose 103 H Calcium 9.1 Magnesium 2.4
[2019-09-01] MEDS ORDERED: METOPROLOL SUCC 25MG EXT REL TAB PO SCH (17:00)
[2019-09-01] MEDS: ATORVASTATIN 40 MG TAB PO SCH (17:16)
[2019-09-01] MEDS ORDERED: Nursing to Pharmacy Communication ONE (18:22)
[2019-09-01] MEDS: GABAPENTIN 300 MG CAP PO SCH (20:24)
[2019-09-02 06:08] LABS: Basophils # (auto) 0.02 K/uL (0-0.2); Basophils % (auto) 0.2 %; Eosinophils # (auto) 0.26 K/uL (0-0.5); Eosinophils % (auto) 2.8 %; Hematocrit (blood only) 37.9 % (37-47); Hemoglobin 12.3 g/dL (12.0-16.0); Immature Granulocytes # (auto) 0.02 K/uL (0.00-0.02); Immature Granulocytes % (auto) 0.2 %; Lymphocytes # (auto) 1.78 K/uL (1.2-3.4); Mean Corpuscular Hemoglobin 28.3 pg (25-34); Mean Corpuscular Hgb Conc 32.5 g/dL (32-36); Mean Corpuscular Volume 87.3 fL (80-100); Monocytes # (auto) 1.15 K/uL (0.11-0.59); Monocytes % (auto) 12.3 %; Neutrophils # (auto) 6.14 K/uL (1.4-6.5); Neutrophils % (auto) 65.5 %; Platelet Count 266 K/uL (130-400); RDW Coefficient of Variation 15.5 % (11.5-14.5); RDW Standard Deviation 49.9 fL (36.4-46.3); Red Blood Count 4.34 M/uL (4.2-5.4); White Blood Count 9.37 K/uL (4.8-10.8)
[2019-09-02 06:28] LABS: BUN Creatinine Ratio 14.9 (10-20); Calcium 8.7 mg/dl (8.5-10.1); Est GFR (African American) 67.2; Est GFR (Non-African American) 57.9; Potassium 3.6 mmol/L (3.5-5.1)
[2019-09-02] MEDS: LEVOTHYROXINE SODIUM 25 MCG TABLET PO SCH (06:34)
[2019-09-02] MEDS: dilTIAZem HCL 300 MG CAPCR PO SCH (08:04)
[2019-09-02] MEDS: SPIRONOLACTONE 25 MG TAB PO SCH (08:05)
[2019-09-02] MEDS: FUROSEMIDE 20 MG TAB PO SCH (08:05)
[2019-09-02] MEDS: MONTELUKAST SODIUM 10 MG TABLET PO SCH (08:05)
[2019-09-02] MEDS: METOPROLOL SUCC 25MG EXT REL TAB PO SCH (08:06)
[2019-09-02] MEDS: ATORVASTATIN 40 MG TAB PO SCH (08:06)
[2019-09-02] MEDS: APIXABAN 5 MG TABLET PO SCH (08:07)
[2019-09-02] MEDS: VENLAFAXINE HCL XR 75 MG CAPXR PO SCH (08:07)
[2019-09-02] MEDS: CLOPIDOGREL BISULFATE 75 MG TAB PO SCH (08:07)
--- NOTE | 2019-09-02 12:50 | Cardiology Progress Note ---
Date of Service September 02, 2019 Assessment & Plan (1) ACS (acute coronary syndrome): Cardiac catheterization performed on 08/31/2019 demonstrated hazy proximal right coronary stenosis. Lesion was interrogated by flow wire and shortly after patient developed acute coronary syndrome with right coronary artery diffuse thrombosis. Patient responded to IV Integrilin. Proximal right coronary artery lesion stented successfully with clinical improvement Patient tolerated the events well except for superficial ecchymoses Plan: Continue apixaban and Plavix. Aspirin 81 mg x 30 days then discontinue Follow-up cardiology 1 to 2 weeks time, cardiac rehab (2) Acute diastolic heart failure: Clinically improved Would continue low-dose furosemide 20 g/day with spironolactone 12.5 mill grams per day (3) Atrial fibrillation with RVR: Better rate control on current combination therapies would continue diltiazem and Toprol as currently ordered (4) Acute respiratory failure with hypoxia: Subjective Patient was seen, examined, chart, medications and telemetry reviewed. Patient was ambulatory in room with physical therapy and in hallway with walker with good tolerance. Notes dyspnea has improved. She remains in atrial fibrillation with controlled ventricular response rate. No dizziness or lightheadedness. No chest pain no bleeding difficulties. Physical Exam Constitutional: WD/WN, vitals as above + obese; no acute distress Eyes: PERRL, conjunctivae normal, anicteric sclerae ENMT: Mallampati Class: IV Neck: trachea midline, no thyromegaly + thick neck Respiratory: normal respiratory effort, lungs clear to auscultation Cardiovascular: Rate/Rhythm: + irregularly irregular Heart Sounds: normal S1 and normal S2; no gallop and no murmur Palpation: normal PMI Vessels: normal carotid upstroke and radial pulses present; no JVD and no carotid bruit Extremities: no edema Right radial and right femoral puncture sites healing well no bruit Gastrointestinal (Abdomen): normal bowel sounds, soft, nontender, no hepatosplenomegaly Musculoskeletal: no cyanosis or clubbing, extremities motor strength 5/5 Skin: no rashes, warm and dry Neurologic: PERRL, EOMI, accommodation nl, no face palsy, no dysarthria Psychiatric: A+Ox3, euthymic affect Results & Data Vital Signs (Past 12 Hours) Vital Signs Temp Pulse Pulse Resp BP Pulse Ox 09/02/19 11:17 36.9 C 85 19 130/75 96 09/02/19 08:00 88 09/02/19 07:45 36.6 C 93 H 18 123/81 97 09/02/19 04:12 36.4 C L 62 20 110/74 96
--- NOTE | 2019-09-02 16:01 | Hospitalist Progress Note ---
Date of Service September 02, 2019 Assessment & Plan (1) ACS (acute coronary syndrome): Presented with dyspnea on exertion. Cardiac catheterization demonstrated 50 to 60% narrowing of the proximal RCA. FFR evaluation did not show any significant obstructive disease. After the procedure, she developed sudden onset of chest pressure, dyspnea, diaphoresis, and hypotension. EKG demonstrated ST elevation inferiorly. Patient returned to [facility] where she was found to have thrombosis in the RCA. PCI with drug-eluting stent performed with good results. Patient is anticoagulated with apixaban for chronic atrial fibrillation and history of DVT. Dual antiplatelet therapy with aspirin and clopidogrel recommended for 30 days, then monotherapy with clopidogrel thereafter. Beta blockade with metoprolol succinate. LDL-c = 108. High-intensity atorvastatin 40 mg daily. (2) Heart failure, diastolic, with acute decompensation: Admission chest x-ray showed cardiomegaly and pulmonary vascular congestion. Recent echocardiogram 07/04/19 demonstrated normal left ventricular systolic function. Acute on chronic left ventricular diastolic heart failure. Diuretics adjusted with improvement. Discharged on furosemide 20 mg daily and spironolactone 12.5 mg daily. Received CHF instructions. (3) Atrial fibrillation with RVR: Chronic atrial fibrillation. Atrial fibrillation with rapid ventricular response at time of admission. Rate controlled with metoprolol succinate 25 twice daily and diltiazem extended release 300 mg daily. Continue anticoagulation with apixaban. (4) HTN (hypertension): Continue cardiovascular medications as noted above. (5) DVT prophylaxis: Received apixaban for chronic atrial fibrillation and history of DVT. (6) Discharge planning issues: Discharge to home. Family Medicine follow-up with Dr. Kari Walters. Cardiology follow-up with [facility]. Subjective Recheck for acute coronary syndrome and other problems. Patient seen in their room around 1530. Doing well. No chest pain or SOB. Ready to go home. Physical Exam Constitutional: no acute distress Respiratory: no respiratory distress Auscultation: lungs clear to a uscultation bilaterally Cardiovascular: Rate/Rhythm: + irregularly irregular Heart Sounds: no gallop and no cardiac rub Vessels: no JVD Extremities: no calf tenderness and no edema Gastrointestinal (Abdomen): normal bowel sounds, soft, nontender, no hepatosplenomegaly Skin: no rashes, warm and dry Psychiatric: Orientation: alert and oriented x 3 Results & Data Vital Signs (Past 12 Hours) Vital Signs Temp Pulse Pulse Resp BP Pulse Ox 09/02/19 15:01 36.4 C L 88 20 130/74 96 09/02/19 11:17 36.9 C 85 19 130/75 96 09/02/19 08:00 88 09/02/19 07:45 36.6 C 93 H 18 123/81 97 09/02/19 04:12 36.4 C L 62 20 110/74 96 Laboratory Results 09/02/19 05:39 09/02/19 05:39
--- NOTE | 2019-09-02 17:07 | Discharge Summary ---
Date of Service Date of Admission: 08/27/19 Date of Discharge: 09/02/19 Admission HPI Per Admitting Provider This is a 74yo F with a PMH of persistent atrial fibrillation on Eliquis, asthma, chronic diastolic heart failure, HTN, depression, hypothyroidism and other medical problems listed below who presents with progressive SOB. Patient was recently admitted from 07/09-07/09 with new onset atrial fibrillation with RVR, decompensated diastolic heart failure and asthma exacerbation. Did not spontaneously convert to NSR during admission and was discharged home on Cartia XT 300mg daily and anticoagulated on Eliquis. BORIS guided external direct current cardioversion attempted by Dr. Hilario on 07/15/19 but unsuccessful x 4 attempts. Followed up with cardiology service on August 10 and it was determined that patient had not yet filled metoprolol tartrate prescription and was encouraged to do so. However, patient is still unsure if she is taking medication or not. Followed up with Dr. Anderson of pulmonary group on August 20 and asthma felt to be secondary to cardiac etiology and close cardiac follow-up was strongly recommended. Due for PFTs next week. Has been short of breath since discharge from previous admission but became progressively so last evening. Now wheezing as well and endorsing intermittent palpitations. Also with lower extremity edema and 8 pound weight gain. Denies any lightheadedness, visual changes, chest pain, nausea, vomiting, abdominal pain, dysuria, diarrhea or constipation. In the ED, noted to be tachycardic in 130s. EKG with atrial fibrillation with RVR. Is saturation at 98% on 4 L NC O2 (does not require O2 at home). BiPAP was initiated but patient intolerant so was discontinued as she was switched back to nasal cannula oxygen. Chest x-ray cardiomegaly with mild volume overload and congestive change. No uday pulmonary edema. Suspected bibasilar atelectasis possible trace bilateral pleural effusions. Admission Exam Per Admitting Provider General Appearance: WD/WN, vitals as above, dyspneic when speaking, 98% on 4L NC, obese Head: normocephalic, atraumatic Eyes: normal inspection, PERRL, conjunctivae normal, anicteric sclerae ENT: external ear and nose normal, oropharynx normal Neck: trachea midline, no thyromegaly normal visual inspection Respiratory: diffuse wheezing throughout lung perez. No rales or rhonchi. Increased insp/exp effort, + accessory muscle use Cardiovascular: irregular rate & rhythm, no murmur appreciated, normal peripheral pulses, 1+ BLE edema bilaterally. Vessels: no JVD or carotid bruit Chest: normal inspection of chest Abdomen/GI: normal bowel sounds, soft, nontender, no hepatosplenomegaly Extremities/Musculoskelatal: no cyanosis or clubbing, extremities motor strength 5/5 Neurologic: PERRL, EOMI, accommodation nl, no face palsy, no dysarthria CN's II-XI intact bilaterally and moves all extremities Psychiatric: A+Ox3, euthymic affect Skin: no rashes, normal color, warm/dry Principal Diagnosis acute coronary syndrome with ST elevation MT acute on chronic left ventricular diastolic heart failure atrial fibrillation with rapid ventricular response Discharge Data Allergies Allergy/AdvReac Type Severity Reaction Status Date / Time adhesive Allergy Unknown HEAVIER Verified 08/27/19 09:30 SURG TAPE-REDNESS SORE SKIN cat dander Allergy Unknown ITCHY Verified 08/27/19 09:30 NOSE, ITCHY EYES,RUNNY NOSE grass pollen-perennial rye, Allergy Unknown GRASS,MOLD-ITCHY Verified 08/27/19 09:30 standar EYES RUNNY NOSE latex Allergy Unknown CONTACT Verified 08/27/19 09:30 DERMATITIS tetanus toxoid, adsorbed Allergy Unknown SWELLING Verified 08/27/19 09:30 AT SITE KOLE Inhibitors AdvReac Unknown COUGH Unverified 08/27/19 09:30 Consultations 08/27/19 11:28 ED Decision to Admit Stat 08/27/19 14:34 Consult Cardiology Routine Consult Case Management - Discharge Planning Routine 08/27/19 14:52 Consult Pulmonology Routine 08/31/19 17:11 Consult Cardiac Rehabilitation Routine Procedures Performed Operation Date: 08/31/19 12:00 Actual Procedures p Cath, Left with Cors and Vent - Paul Toussaint MD s Cineradiography w/Routine Exam - Paul Toussaint MD s Fraction Flow Spreckels SGL Ves - Yony Akhtar MD Operation Date: 08/31/19 15:30 Actual Procedures p Drug Eluting Stent SGl Vessel - Yony Akhtar MD s IVUS Coronary Single Vessel - Yony Akhtar MD s Cineradiography w/Routine Exam - Yony Akhtar MD Ordered Studies 08/31/19 13:36 CL Cath Imgs for PACS use only Routine 08/31/19 15:34 CL Cath Imgs for PACS use only Routine 08/31/19 16:24 CL IVUS Coronary Single Vessel Routine Hospital Course (1) ACS (acute coronary syndrome): Presented with dyspnea on exertion. Cardiac catheterization demonstrated 50 to 60% narrowing of the proximal RCA. FFR evaluation did not show any significant obstructive disease. After the procedure, she developed sudden onset of chest pressure, dyspnea, diaphoresis, and hypotension. EKG demonstrated ST elevation inferiorly. Patient returned to the [facility] where she was found to have thrombosis in the RCA. PCI with drug-eluting stent performed with good results. Patient is anticoagulated with apixaban for chronic atrial fibrillation and history of DVT. Dual antiplatelet therapy with aspirin and clopidogrel recommended for 30 days, then monotherapy with clopidogrel thereafter. Beta blockade with metoprolol succinate. LDL-c = 108. High-intensity atorvastatin 40 mg daily. (2) Heart failure, diastolic, with acute decompensation: Admission chest x-ray showed cardiomegaly and pulmonary vascular congestion. Recent echocardiogram 07/04/19 demonstrated normal left ventricular systolic function. Acute on chronic left ventricular diastolic heart failure. Diuretics adjusted with improvement. Discharged on furosemide 20 mg daily and spironolactone 12.5 mg daily. Received CHF instructions. (3) Atrial fibrillation with RVR: Chronic atrial fibrillation. Atrial fibrillation with rapid ventricular response at time of admission. Rate controlled with metoprolol succinate 25 twice daily and diltiazem extended release 300 mg daily. Continue anticoagulation with apixaban. (4) HTN (hypertension): Continue cardiovascular medications as noted above. (5) DVT prophylaxis: Received apixaban for chronic atrial fibrillation and history of DVT. (6) Discharge planning issues: Discharged to home. Family Medicine follow-up with Dr. Krai Walters. Cardiology follow-up with [facility]. Total Time Total Time Spent Total Time Spent (In Minutes): 45 Discharge Plan Discharge Items Patient Disposition: Home - Self-Care Reason For Visit: shortness of breath Discharge Diagnosis: coronary artery disease (blockage in coronary artery) congestive heart failure (fluid in lungs) atrial fibrillation (irregular heart rhythm) Condition on Discharge: Good Activity: As commented below Activity Comment: gradually increase acitivity as tolerated; rest if tired or short of breath Non-emergency contact: Primary Care Provider, Hospitalist and Cheesemaker Call non-emergency contact if: you have any medication questions, your symptoms worsen and your temperature is above 101 Follow-up/Referrals: Kari Walters DO [Primary Care Provider] - (09/07/2019 3:10 PM Johann Vang MD (covering for Dr. Waltesr) [facility]) Sara Nunez PA-C [Physician State Comptroller] - (09/11/2019 3:30 PM Sara Nunez PA-C Cardiology [facility]) Diet: Heart Healthy Add Attending Provider Instructions: MEDICATION CHANGES: Start aspirin 81 mg daily for 30 days, then stop. For coronary disease & stent. Start clopidogrel (Plavix) 75 mg daily, continue unless instructed by Cardiology to stop. For coronary disease & stent. Start metoprolol succinate (Toprol XL) 25 mg twice a day. For coronary disease and atrial fibrillation. Start furosemide (Lasix) 20 mg daily For congestive heart failure. Start spironolactone (Aldactone) 12.5 mg daily. For congestive heart failure. Start atorvastatin (Lipitor) 40 mg daily. For coronary disease and high cholesterol. Start nitroglycerin (Nitrostat) 0.4 mg under tongue as needed. Take as needed for chest pain or pressure. May repeat dose in 5 min. Call 911 if no relief. STOP: metoprolol tartrate (Lopressor), hydrochlorothiazide, potassium chloride, losartan (Cozaar) SUMMARY OF TEST RESULTS: Chest x-ray showed fluid in lungs. Electrocardiogram showed atrial fibrillation. Heart catheterization showed blockage in coronary artery. LDL cholesterol = 108. INSTRUCTIONS FOR CONGESTIVE HEART FAILURE: Call 911 and go to the Emergency Room if: * You have tightness or pain in your chest that does not go away with rest or Nitroglycerin * You are very short of breath even with rest Call your doctor if any of the following symptoms or problems start or get worse: * Shortness of breath or difficulty breathing * Wake up at night short of breath * Chest pain * Cough * Swelling of your hands, fee, or legs * More fatigued or tired with your normal activity * Palpitations - sudden fast heart beats WEIGHT * Weigh yourself every morning after using the bathroom. * Use the same scale. * Wear the same amount of clothing. * Write your weight down on your chart. * Call your doctor if you gain more than 2-3 pounds in 1-2 days. MEDICATIONS * Use this discharge instruction sheet for instructions. * Take your medications at the time your doctor ordered. * Do not skip a dose of your medicines. * If you miss a dose of medicine, take as soon as possible, but DO NOT DOUBLE A DOSE. * Read your medicine information when you get home. * Know all of the side effects of your medicine. * Call your doctor's office if you have any side effects. * Be sure all of your doctors know what medicine and herbs you take (including cold, flu, and herbal medicine). * Pain Medicine: If you do not get relief from your pain, please call your doctor for help. Take the following with you to your follow-up doctor appointments: * Weight Chart * Medication List * List of questions Do not drink excessive alcohol, beer or wine. OTHER INSTRUCTIONS: Seek medical attention if you have: * temperature above 101 * chest pain or trouble breathing * abdominal pain, nausea, vomiting * diarrhea, dark stools or bloody stools * any unanswered questions or concerns Call 911 if symptoms are severe. Please take good care of yourself. Call if you have any questions or problems. You can reach a [facility] hospitalist on duty at [facility] 24 hours a day by calling [phone]. My cell # is [phone]. Pending Studies at Discharge: No Stand-Alone Forms: My [facility], Smoking Cessation Medications and DC Order Prescriptions: New atorvastatin 40 mg Tablet 40 mg PO QAM Qty: 30 RF: 5 clopidogrel 75 mg Tablet 75 mg PO QAM Qty: 30 RF: 5 spironolactone 25 mg Tablet 12.5 mg PO DAILY Qty: 30 RF: 5 metoprolol succinate 25 mg Tablet Extended Release 24 Hr 25 mg PO BID Qty: 60 RF: 5 aspirin [Adult Low Dose Aspirin] 81 mg tablet,delayed release (DR/EC) 81 mg PO DAILY Qty: 30 RF: 0 nitroglycerin [Nitrostat] 0.4 mg tablet, sublingual 0.4 mg Sublingual Q5M PRN (Reason: chest pain) Qty: 25 RF: 1 furosemide 20 mg Tablet 20 mg PO QAM Qty: 30 RF: 5 Continued Eliquis 5 mg tablet 5 mg PO BID RF: 0 buspirone 10 mg tablet 10 mg PO BID RF: 0 montelukast 10 mg tablet 10 mg PO DAILY RF: 0 gabapentin 300 mg capsule 300 mg PO HS RF: 0 albuterol sulfate 90 mcg/actuation HFA aerosol inhaler 2 inh inhalation Q4H PRN (Reason: Shortness Of Breath) RF: 0 ipratropium-albuterol 0.5 mg-3 mg(2.5 mg base)/3 mL solution for nebulization 3 ml inhalation QID RF: 0 levothyroxine 25 mcg tablet 25 mcg PO QAM RF: 0 venlafaxine 75 mg capsule,extended release 24hr 75 mg PO DAILY RF: 0 diltiazem HCl [Cardizem CD] 300 mg capsule,extended release 24hr 300 mg PO DAILY RF: 0 Discontinued potassium chloride 10 mEq capsule, extended release 10 meq PO DAILY RF: 0 losartan 25 mg tablet 12.5 mg PO QAM RF: 0 hydrochlorothiazide 25 mg tablet 25 mg PO QAM RF: 0 metoprolol tartrate 25 mg tablet 25 mg PO BID RF: 0 Discharge Orders: Discharge Order (Routine); Ordered 09/02/19 Ordered By: hSay Hargorve Admission Data Admit Date/Time: 08/27/19 13:03 Attending Provider: Shay Hargrove Admit Provider: Contreras García Primary Care Provider: Kari Walters Other Providers: González Hubbard ; Cezar Walters ; Marion Rodriguez ; Grady Griffiths
--- NOTE | 2019-09-03 12:14 | Cardiology Consultation ---
Date of Consultation August 27, 2019 Assessment & Plan (1) Acute diastolic heart failure: (2) Permanent atrial fibrillation with rapid ventricular response: (3) Asthma: Recommend rate control strategy. Restart oral diltiazem 300 mg daily. IV Cardizem infusion will be added at this time due to active wheezing to improve rate control. Beta-luis armando will not be started until respiratory status/wheeze has improved. Continue IV diuresis with Lasix 40 mg twice daily. Follow fluid balance, daily weight, GFR, and electrolytes. Continue Eliquis 5 mg twice daily. History of Present Illness Reason for Consultation: Atrial fibrillation with rapid ventricular response, acute decompensated diastolic heart failure Requesting Physician: Dr. Griffiths Attending Physician: Dr. Griffiths History of Present Illness Complex 74-year-old female presented to the emergency department with progressive shortness of breath, edema, weight gain, and palpitations. Carries history of persistent atrial fibrillation with rapid ventricular response, asthma, chronic diastolic heart failure, and hypertension. Recent history significant for attempted outpatient BORIS guided external direct-current cardioversion 07/15/[address] Arellano. Cardioversion was unsuccessful x4 attempts. Metoprolol 25 mill grams twice daily added at that time, however, patient misunderstood instructions and did not fill the prescription. May not have taken diltiazem now in several days. Atrial fibrillation with rapid ventricular response noted on presentation. Treated with intravenous diltiazem with improvement of heart rate. She is chronically anticoagulated with Eliquis. Patient reports mild dyspnea at rest. She received 1 dose of intravenous Lasix in ER and is currently diuresing. Heart rate 120 bpm. Intolerant to BiPAP. No signs/symptoms of GI/ blood loss. Offers no other concerns/complaints at this time. Allergies Allergy/AdvReac Type Severity Reaction Status Date / Time adhesive Allergy Unknown HEAVIER Verified 08/27/19 09:30 SURG TAPE-REDNESS SORE SKIN cat dander Allergy Unknown ITCHY Verified 08/27/19 09:30 NOSE, ITCHY EYES,RUNNY NOSE grass pollen-perennial rye, Allergy Unknown GRASS,MOLD-ITCHY Verified 08/27/19 09:30 standar EYES RUNNY NOSE latex Allergy Unknown CONTACT Verified 08/27/19 09:30 DERMATITIS tetanus toxoid, adsorbed Allergy Unknown SWELLING Verified 08/27/19 09:30 AT SITE KOLE Inhibitors AdvReac Unknown COUGH Unverified 08/27/19 09:30 Home Medications Home Medications Medication Instructions Recorded Confirmed Type buspirone 10 mg PO BID 01/24/19 08/27/19 History montelukast 10 mg PO DAILY 01/24/19 09/02/19 History albuterol sulfate 2 inh INHALATION Q4H PRN 07/03/19 08/27/19 History gabapentin 300 mg PO HS 07/03/19 08/27/19 History apixaban 5 mg tablet 5 mg PO BID 08/19/19 08/27/19 History ipratropium-albuterol 3 ml INHALATION QID 08/27/19 08/27/19 History levothyroxine 25 mcg PO QAM 08/27/19 08/27/19 History venlafaxine 75 mg PO DAILY 08/27/19 08/27/19 History aspirin [Adult Low Dose Aspirin] 81 mg PO DAILY #30 tab 09/02/19 Rx atorvastatin 40 mg PO QAM #30 tab 09/02/19 Rx clopidogrel 75 mg PO QAM #30 tab 09/02/19 Rx diltiazem HCl [Cardizem CD] 300 mg PO DAILY 09/02/19 09/02/19 History furosemide 20 mg PO QAM #30 tab 09/02/19 Rx metoprolol succinate 25 mg PO BID #60 tab 09/02/19 Rx nitroglycerin [Nitrostat] 0.4 mg SUBLINGUAL Q5M PRN #25 tab 09/02/19 Rx spironolactone 12.5 mg PO DAILY #30 tab 09/02/19 Rx Patient History Medical History Arthritis (Chronic) Asthma (Chronic) Atrial fibrillation Chronic diastolic heart failure (Chronic) Coronary artery disease 08/31/19 thrombus RCA, PCI with JAILENE Depression (Chronic) Dyslipidemia History of DVT (deep vein thrombosis) Hypertension Mood disorder (Chronic) Prediabetes (Chronic) Scoliosis (Chronic) Surgical History H/O: hysterectomy (Chronic) History of mastectomy (Chronic) Status post coronary artery stent placement 08/31/19 thrombus RCA, PCI with JAILENE Family History Other Heart disease Social History Preferred Language: Setswana Communication Ability: Effective Scrap Handler Required: No Beliefs That Will Affect Care: None Current Living Situation: Alone Feels Safe at Home: Yes Smoking Status: Never smoker Second Hand Exposure: No ; Hx Alcohol Use: Yes Alcohol type: wine Hx Substance Use: No Review of Systems Review of Systems: All systems reviewed & are unremarkable except as noted in HPI & below Physical Exam Physical Exam: General: NAD, AAO x3, well nourished. Obese. HEENT: Normocephalic. Atraumatic. Conjunctiva pink, no scleral icterus. Neck: No carotid bruits, the carotid upstrokes are brisk. Unable to assess neck veins due to body habitus. Heart: Irregular rhythm, tachycardic, normal S1 and S2. No murmur, or rub appreciated. PMI is not displaced. No RV heave. Lungs: Clear bilateral without rales , rhonchi, or wheeze. Abdomen: Normal bowel sounds. Soft. Nontender. No masses or organomegaly. No abdominal bruits. Extremities: 1+ bilateral pretibial edema. Pulses: radial=2/4, Dorsalis pedis =2/4, posterior tibial=2/4. Neuro: Cranial nerves grossly intact. No focal motor deficit.
== END 2019-09-02 18:30 | disposition home or self-care (01) | DRG 246 ==
LOC: ED 09:04 → SUATTDRO 13:03 → 2S 13:03

== ENCOUNTER 2020-04-19 13:51 | Inpatient (IN) ==
[2020-04-19] MEDS ORDERED: cefTRIAXone SODIUM 2,000 MG/70 ML BAG IV STA (15:08)
[2020-04-19] MEDS ORDERED: MoRPHine SULFATE 2 MG/ML CARP IV STA (15:08)
[2020-04-19] MEDS ORDERED: SODIUM CHLORIDE 0.9% 1000ML 500 ML IV ONE (15:08)
[2020-04-19] MEDS ORDERED: ACETAMINOPHEN 1,000 MG/100 ML VIAL IV STA (15:08)
--- NOTE | 2020-04-19 15:47 | XRay Report ---
XR chest 1V portable HISTORY: weakness COMPARISON: Chest 08/27/2019. FINDINGS: The heart remains enlarged. No new focal lung consolidations to suggest pneumonia. No evide nce for pulmonary edema. No pleural effusion is. No pneumothorax. IMPRESSION: Stable mild cardiomegaly. ACT 112: Negative or not required by law. Electronically signed by: Demetrius Caraballo M.D. 04/19/2020 3:46 PM
--- NOTE | 2020-04-19 16:18 | CT Scan Report ---
HEAD CT NONCONTRAST CT DOSE: 614.27 mGy.cm HISTORY: Altered mental status. TECHNIQUE: Multiaxial CT images of the head were performed without the use of intravenous contrast. A utomated exposure control was utilized for this study. A dose lowering technique was utilized adheri ng to the principles of ALARA. Comparison: None. Findings: The paranasal sinuses and mastoid air cells are clear. The calvarium and skull base are int act. There is no hematoma or acute infarct. White matter hypodensity is nonspecific but suggestive of microvascular ischemic change. The ventricles and sulci demonstrate mild age-related involutional ch anges. There is a 2 cm hyperdense extra-axial mass within the left high convexity with associated jens cification. This likely represents a meningioma. No adjacent edema. No midline shift. Impression: 1. No acute intracranial abnormality. 2. A 2 cm extra-axial mass within the left high convexity. This favors a meningioma. ACT 112: Negative or not required by law. Electronically signed by: Demetrius Caraballo M.D. 04/19/2020 4:17 PM
[2020-04-19 16:25] LABS: Basophils # (auto) 0.02 K/uL (0-0.2); Basophils % (auto) 0.1 %; Eosinophils # (auto) 0.01 K/uL (0-0.5); Eosinophils % (auto) 0.1 %; Hematocrit (blood only) 41.7 % (37-47); Hemoglobin 13.5 g/dL (12.0-16.0); Immature Granulocytes # (auto) 0.03 K/uL (0.00-0.02); Immature Granulocytes % (auto) 0.2 %; Lymphocytes # (auto) 0.97 K/uL (1.2-3.4); Lymphocytes % (auto) 6.9 %; Mean Corpuscular Hemoglobin 28.4 pg (25-34); Mean Corpuscular Hgb Conc 32.4 g/dL (32-36); Mean Corpuscular Volume 87.6 fL (80-100); Mean Platelet Volume 11.5 fL (7.4-10.4); Monocytes % (auto) 7.8 %; Neutrophils # (auto) 11.96 K/uL (1.4-6.5); Neutrophils % (auto) 84.9 %; Platelet Count 296 K/uL (130-400); RDW Coefficient of Variation 14.7 % (11.5-14.5); RDW Standard Deviation 47.5 fL (36.4-46.3); Red Blood Count 4.76 M/uL (4.2-5.4); White Blood Count 14.09 K/uL (4.8-10.8)
[2020-04-19 16:34] LABS: Alanine Aminotransferase 16 U/L (12-78); Albumin Level 3.5 gm/dl (3.4-5.0); Aspartate Aminotransferase 38 U/L (15-37); BUN Creatinine Ratio 20.7 (10-20); Blood Urea Nitrogen 28 mg/dl (7-18); Calcium 9.1 mg/dl (8.5-10.1); Carbon Dioxide 24 mmol/L (21-32); Chloride 105 mmol/L (98-107); Creatinine Clr Calc Pharmacy 37.5 ml/min; Est GFR (African American) 45.1; Est GFR (Non-African American) 38.9; Glucose 107 mg/dl (70-99); Sodium 137 mmol/L (136-145)
--- NOTE | 2020-04-19 16:38 | Electrocardiogram Report ---
Test Reason : Blood Pressure : / mmHG Vent. Rate : 088 BPM Atrial Rate : 300 BPM P-R Int : 000 ms QRS Dur : 082 ms QT Int : 376 ms P-R-T Axes : 000 026 -18 degrees QTc Int : 454 ms Poor data quality, interpretation may be adversely affected Atrial fibrillation with premature ventricular or aberrantly conducted complexes Diffuse Minor Nonspecific ST and T wave abnormality Abnormal ECG When compared with ECG of 01-SEP-2019 12:24, No significant change Confirmed by Josue Barger ([id number]) on 04/19/2020 4:38:29 PM Referred By: REFERRED SELF Confirmed By:Josue Barger
[2020-04-19 16:49] LABS: Albumin Globulin Ratio 0.9 (0.9-2); Alkaline Phosphatase 112 U/L (45-117); Bilirubin,Total 1.2 mg/dl (0.2-1); Creatine Kinase 1442 U/L (26-192); Creatine Kinase MB 17.9 ng/ml (0.5-3.6); Globulin 3.7 gm/dl (2.5-4.0); Total Protein 7.2 gm/dl (6.4-8.2); Troponin I < 0.015 ng/ml (0-0.045)
[2020-04-19] MEDS ORDERED: SODIUM CHLORIDE 0.9% 500 ML IV ONE (17:11)
[2020-04-19 17:27] LABS: Appearance Urine Cloudy (Clear); Bacteria Urine Automated 4+ (Negative); Bilirubin Urine Negative (Negative); Blood Urine 1+ (Negative); Color Urine Dark Yellow; Epithelial Cell Urine Auto 0-5 /lpf (0-5); Glucose Urine UA Negative (Negative); Ketones Urine Negative (Negative); Leukocyte Esterase Urine 2+ (Negative); Nitrite Urine Positive (Negative); Protein Urine Negative (Negative); RBC Urine Automated 0-4 /hpf (0-4); Specific Gravity Urine 1.021 (1.000-1.030); Urobilinogen Urine Negative (Negative); WBC Urine Automated >30 /hpf (0-5)
--- NOTE | 2020-04-19 18:46 | History & Physical Report ---
Date of Service April 19, 2020 Assessment & Plan (1) UTI (urinary tract infection): Has been complaining of frequency with dysuria No fever at home but noted to be febrile in the emergency room UA suggestive of infection with high white count Started with intravenous ceftriaxone and will continue Urine and blood cultures have been ordered (2) KALEE (acute kidney injury): Has been on oral spironolactone and Lasix as an outpatient for diastolic heart failure Looks dry BUN and creatinine has been increased compared with prior results KALEE secondary to dehydration We will give cautious amount of intravenous fluid and hold Lasix and spironolactone for now Hold lisinopril as well We will need to restart these medications when improvement of kidney function Status post fall with increased creatinine Doubt any rhabdomyolysis We will give IV fluid and monitor kidney function (3) Mood disorder: History of mood disorders with anxiety Has been complaining of occasional hallucination with mild confusion Head CT has been negative May be complicated by dehydration and renal impairment with infection We will observe Psychiatric evaluation if the condition gets worse (4) Chronic diastolic heart failure: Has been on Lasix and Spironolactone as an outpatient Admitted with dehydration and KALEE Will need diuretics on discharge (5) Asthma: Stable DVT prophylaxis On apixaban History of Present Illness Chief Complaint: Weakness, urinary frequency and increasing confusion Primary Care Provider: Kari Walters DO She is a 75-year-old female with significant past medical history including atrial fibrillation on anticoagulation, history of diastolic heart failure, mitral valve regurgitation, depression with mood disorder, controlled asthma and osteoarthritis has been complaining of occasional hallucination and forgetfulness for the last 2 to 3 weeks. She has been gradually weak and the weakness is worse as of today when she ended up with a fall injuring her left k nee. She also complains to have increasing frequency and pain associated with urination. Denies any fever but did have sweating and feeling of cold with it. Denies any shortness of breath and/or chest pain, any nausea or vomiting and complains that her legs have been swollen for a long time denies any acute swelling. In the ER she was noted to be febrile without tachycardia and a low blood pres sure. Her white count was elevated to 14,000 with UA very suggestive of infection and she was noted to be in acute kidney injury. She is admitted to [facility] telemetry unit for continuation of care. Allergies Allergy/AdvReac Type Severity Reaction Status Date / Time adhesive Allergy Unknown HEAVIER Verified 04/19/20 15:33 SURG TAPE-REDNESS SORE SKIN cat dander Allergy Unknown ITCHY Verified 04/19/20 15:33 NOSE, ITCHY EYES,RUNNY NOSE grass pollen-perennial rye, Allergy Unknown GRASS,MOLD-ITCHY Verified 04/19/20 15:33 standar EYES RUNNY NOSE latex Allergy Unknown CONTACT Verified 04/19/20 15:33 DERMATITIS tetanus toxoid, adsorbed Allergy Unknown SWELLING Verified 04/19/20 15:33 AT SITE KOLE Inhibitors AdvReac Unknown COUGH Unverified 04/19/20 15:33 Home Medications Home Medications Medication Instructions Recorded Confirmed Type buspirone 10 mg PO BID 01/24/19 04/19/20 History montelukast 10 mg PO DAILY 01/24/19 04/19/20 History gabapentin 300 mg PO HS 07/03/19 04/19/20 History apixaban 5 mg tablet 5 mg PO BID 08/19/19 04/19/20 History levothyroxine 25 mcg PO QAM 08/27/19 04/19/20 History atorvastatin 40 mg PO QAM #30 tab 09/02/19 04/19/20 Rx clopidogrel 75 mg PO QAM #30 tab 09/02/19 04/19/20 Rx diltiazem HCl [Cardizem CD] 300 mg PO DAILY 09/02/19 04/19/20 History furosemide 20 mg PO QAM #30 tab 09/02/19 04/19/20 Rx nitroglycerin [Nitrostat] 0.4 mg SUBLINGUAL Q5M PRN #25 tab 09/02/19 04/19/20 Rx digoxin 125 mcg PO 3XWK 04/19/20 04/19/20 History losartan 25 mg PO DAILY 04/19/20 04/19/20 History metoprolol succinate 50 mg PO BID 04/19/20 04/19/20 History potassium chloride 10 meq PO DAILY 04/19/20 04/19/20 History sertraline 25 mg PO DAILY 04/19/20 04/19/20 History spironolactone 25 mg PO DAILY 04/19/20 04/19/20 History Past Med/Surg History Medical History Arthritis (Chronic) Asthma (Chronic) Atrial fibrillation Chronic diastolic heart failure (Chronic) Coronary artery disease 08/31/19 thrombus RCA, PCI with JAILENE Depression (Chronic) Dyslipidemia History of DVT (deep vein thrombosis) Hypertension Mood disorder (Chronic) Prediabetes (Chronic) Scoliosis (Chronic) Surgical History H/O: hysterectomy (Chronic) History of mastectomy (Chronic) Status post coronary artery stent placement 08/31/19 thrombus RCA, PCI with JAILENE Family History Other Heart disease Social History Preferred Language: Czech Communication Ability: Effective [employer] Required: No Beliefs That Will Affect Care: None Current Living Situation: Family Current Living Situation Comment: w/ son Feels Safe at Home: Yes Smoking Status: Never smoker Second Hand Exposure: No ; Hx Alcohol Use: Yes Alcohol type: wine Hx Substance Use: No Review of Systems Review of Systems: All systems reviewed & are unremarkable except as noted in HPI & below Physical Exam Physical Exam: Lying in bed comfortably Constitutional: well developed, well nourished, + ill appearing and + obese; no acute distress Eyes: PERRL, conjunctivae normal, anicteric sclerae ENMT: Dry mouth Neck: trachea midline, no thyromegaly Respiratory: normal respiratory effort; no respiratory distress Auscultation: lungs clear to auscultation bilaterally Cardiovascular: Rate/Rhythm: + irregularly irregular Heart Sounds: + murmur Extremities: + edema (Bilateral leg edema, chronic, and may have component of lymphedema) Gastrointestinal (Abdomen): Inspection/Auscultation: abdomen normal to inspection and normal bowel sounds; abdomen not distended Percussion/Palpation: + abdomen tender (Minimally tender in the hypogastrium) and abdomen soft Musculoskeletal: Osteoarthritic changes generally. Minimal bruising involving the lateral aspect of left knee Neurologic: moves all extremities; no focal motor deficits Alert, awake and oriented x3 Psychiatric: Orientation: alert and oriented x 3 Mood: + depressed mood Complains to have hallucination with mild confusion for the last 3 weeks Results & Data Results & Data ([facility]) Vital Signs (Past 12 Hours) Vital Signs Temp Pulse Pulse Resp BP Pulse Ox 04/19/20 18:01 77 18 132/67 96 04/19/20 17:30 87 24 97 04/19/20 17:00 83 24 152/92 H 95 04/19/20 16:30 90 22 158/95 H 97 04/19/20 16:24 36.9 C 83 24 97 04/19/20 15:30 88 19 116/87 98 04/19/20 15:25 88 20 134/90 99 04/19/20 15:10 99 04/19/20 14:42 88 20 168/90 H 95 04/19/20 14:06 37.8 C H 86 18 137/96 95 Laboratory Results Short CBC 04/19/20 Range/Units 15:54 WBC 14.09 H (4.8-10.8) K/uL Hgb 13.5 (12.0-16.0) g/dL Hct 41.7 (37-47) % Plt Count 296 (130-400) K/uL BMP 04/19/20 15:54 Sodium 137 Potassium 4.0 Chloride 105 Carbon Dioxide 24 BUN 28 H Creatinine 1.34 H Glucose 107 H Calcium 9.1 Cardiac Enzymes 04/19/20 Range/Units 15:54 Total Creatine Kinase 1442 H (26-192) U/L CK-MB (CK-2) 17.9 H (0.5-3.6) ng/ml Troponin I < 0.015 (0-0.045) ng/ml Liver Function 04/19/20 Range/Units 15:54 Total Bilirubin 1.2 H (0.2-1) mg/dl AST 38 H (15-37) U/L ALT 16 (12-78) U/L Alkaline Phosphatase 112 (45-117) U/L Albumin 3.5 (3.4-5.0) gm/dl Urine 04/19/20 Range/Units 16:41 Urine Color Dark Yellow Urine Appearance Cloudy A (Clear) Urine pH 5.0 (4.5-7.5) Ur Specific [place] 1.021 (1.000-1.030) Urine Protein Negative (Negative) Urine Glucose (UA) Negative (Negative) Medications Administered Home Medications Medication Instructions Recorded Confirmed buspirone 10 mg PO BID 01/24/19 04/19/20 montelukast 10 mg PO DAILY 01/24/19 04/19/20 gabapentin 300 mg PO HS 07/03/19 04/19/20 apixaban 5 mg tablet 5 mg PO BID 08/19/19 04/19/20 levothyroxine 25 mcg PO QAM 08/27/19 04/19/20 diltiazem HCl [Cardizem CD] 300 mg PO DAILY 09/02/19 04/19/20 digoxin 125 mcg PO 3XWK 04/19/20 04/19/20 losartan 25 mg PO DAILY 04/19/20 04/19/20 metoprolol succinate 50 mg PO BID 04/19/20 04/19/20 potassium chloride 10 meq PO DAILY 04/19/20 04/19/20 sertraline 25 mg PO DAILY 04/19/20 04/19/20 spironolactone 25 mg PO DAILY 04/19/20 04/19/20 Previous Rx's Medication Instructions Recorded atorvastatin 40 mg PO QAM #30 tab 09/02/19 clopidogrel 75 mg PO QAM #30 tab 09/02/19 furosemide 20 mg PO QAM #30 tab 09/02/19 nitroglycerin [Nitrostat] 0.4 mg SUBLINGUAL Q5M PRN #25 tab 09/02/19 Code Status & VTE Plan VTE Prophylaxis Plan VTE Prophylaxis will be ordered: Yes
[2020-04-19] MEDS: SODIUM CHLORIDE 0.9% 1000ML 1,000 ML IV SCH (18:58)
--- NOTE | 2020-04-19 21:36 | Emergency Department Note ---
History of Present Illness General Chief complaint: Illness Stated complaint: mhid Time Seen by Provider: 04/19/20 14:58 Source: patient, EMS, RN notes reviewed and old records reviewed Mode of arrival: EMS Limitations: no limitations History of Present Illness Provider complaint: Hallucinations Onset (ago): day(s) 2 Maximum Pain Intensity: 4 Current Pain Intensity: 0 Treatments prior to arrival: none This is a 75-year-old female sent in by her family over concerns of the patient is hallucinating. The family notes that the patient gets like this when she has a urinary tract infection. The patient thought there were elephants in her room today. She denies any pain any shortness of breath any chest pain. She denies any close contact with the virus. She did not take anything for the hallucinations prior to coming in. Patient is aware of where she is knows who the president is and knows what month we are in. Home Medications Home Medications Medication Instructions Recorded Confirmed Type buspirone 10 mg PO BID 01/24/19 04/19/20 History montelukast 10 mg PO DAILY 01/24/19 04/19/20 History gabapentin 300 mg PO HS 07/03/19 04/19/20 History apixaban 5 mg tablet 5 mg PO BID 08/19/19 04/19/20 History levothyroxine 25 mcg PO QAM 08/27/19 04/19/20 History atorvastatin 40 mg PO QAM #30 tab 09/02/19 04/19/20 Rx clopidogrel 75 mg PO QAM #30 tab 09/02/19 04/19/20 Rx diltiazem HCl [Cardizem CD] 300 mg PO DAILY 09/02/19 04/19/20 History furosemide 20 mg PO QAM #30 tab 09/02/19 04/19/20 Rx nitroglycerin [Nitrostat] 0.4 mg SUBLINGUAL Q5M PRN #25 tab 09/02/19 04/19/20 Rx digoxin 125 mcg PO 3XWK 04/19/20 04/19/20 History losartan 25 mg PO DAILY 04/19/20 04/19/20 History metoprolol succinate 50 mg PO BID 04/19/20 04/19/20 History potassium chloride 10 meq PO DAILY 04/19/20 04/19/20 History sertraline 25 mg PO DAILY 04/19/20 04/19/20 History spironolactone 25 mg PO DAILY 04/19/20 04/19/20 History Allergies Allergy/AdvReac Type Severity Reaction Status Date / Time adhesive Allergy Unknown HEAVIER Verified 04/19/20 15:33 SURG TAPE-REDNESS SORE SKIN cat dander Allergy Unknown ITCHY Verified 04/19/20 15:33 NOSE, ITCHY EYES,RUNNY NOSE grass pollen-perennial rye, Allergy Unknown GRASS,MOLD-ITCHY Verified 04/19/20 15:33 standar EYES RUNNY NOSE latex Allergy Unknown CONTACT Verified 04/19/20 15:33 DERMATITIS tetanus toxoid, adsorbed Allergy Unknown SWELLING Verified 04/19/20 15:33 AT SITE KOLE Inhibitors AdvReac Unknown COUGH Unverified 04/19/20 15:33 Past Med/Surg History Medical History Arthritis (Chronic) Asthma (Chronic) Atrial fibrillation Chronic diastolic heart failure (Chronic) Coronary artery disease 08/31/19 thrombus RCA, PCI with JAILENE Depression (Chronic) Dyslipidemia History of DVT (deep vein thrombosis) Hypertension Mood disorder (Chronic) Prediabetes (Chronic) Scoliosis (Chronic) Surgical History H/O: hysterectomy (Chronic) History of mastectomy (Chronic) Status post coronary artery stent placement 08/31/19 thrombus RCA, PCI with JAILENE Family History Other Heart disease Social History Preferred Language: Citizen Of [place] Communication Ability: Effective Recruiting Manager Required: No Beliefs That Will Affect Care: None Current Living Situation: Family Current Living Situation Comment: w/ son Feels Safe at Home: Yes Smoking Status: Never smoker Second Hand Exposure: No ; Hx Alcohol Use: Yes Alcohol type: wine Hx Substance Use: No Review of Systems A total of 10 systems reviewed and were otherwise negative Physical Exam Vital Signs Vital Signs - 24 hr 04/19/20 14:06 04/19/20 14:42 04/19/20 15:10 Temperature 37.8 C H Temperature Source Oral Pulse Rate 86 88 Pulse Rate [Apical] Pulse Rate from SpO2 Sensor Respiratory Rate 18 20 Respiratory Effort / Characteristics Respiratory Depth Respiratory Pattern Blood Pressure 137/96 168/90 H Blood Pressure Mean 109 120 Pulse Oximetry 95 95 99 Oxygen Delivery Method Room Air Room Air Sepsis Recent Fever Within 48 Hours No Sepsis Action Taken by Nursing No Action Required 04/19/20 15:25 04/19/20 15:30 04/19/20 16:24 Temperature 36.9 C Temperature Source Oral Pulse Rate 88 88 Pulse Rate [Apical] 83 Pulse Rate from SpO2 Sensor 89 Respiratory Rate 20 19 24 Respiratory Effort / Characteristics Non-Labored Spontaneous Respiratory Depth Normal Respiratory Pattern Regular Blood Pressure 134/90 116/87 Blood Pressure Mean 96 98 Pulse Oximetry 99 98 97 Oxygen Delivery Method Room Air Room Air Room Air Sepsis Recent Fever Within 48 Hours Sepsis Action Taken by Nursing 04/19/20 16:30 04/19/20 17:00 04/19/20 17:30 Temperature Temperature Source Pulse Rate 90 83 87 Pulse Rate [Apical] Pulse Rate from SpO2 Sensor 88 83 85 Respiratory Rate 22 24 24 Respiratory Effort / Characteristics Respiratory Depth Respiratory Pattern Blood Pressure 158/95 H 152/92 H Blood Pressure Mean 116 118 Pulse Oximetry 97 95 97 Oxygen Delivery Method Sepsis Recent Fever Within 48 Hours Sepsis Action Taken by Nursing 04/19/20 18:01 04/19/20 18:30 04/19/20 19:00 Temperature Temperature Source Pulse Rate 77 78 80 Pulse Rate [Apical] Pulse Rate from SpO2 Sensor Respiratory Rate 18 16 17 Respiratory Effort / Characteristics Respiratory Depth Respiratory Pattern Blood Pressure 132/67 132/78 132/77 Blood Pressure Mean 86 104 90 Pulse Oximetry 96 98 95 Oxygen Delivery Method Sepsis Recent Fever Within 48 Hours Sepsis Action Taken by Nursing 04/19/20 19:30 04/19/20 20:00 04/19/20 20:37 Temperature 36.6 C Temperature Source Oral Pulse Rate 82 88 77 Pulse Rate [Apical] Pulse Rate from SpO2 Sensor 75 Respiratory Rate 21 16 20 Respiratory Effort / Characteristics Respiratory Depth Respiratory Pattern Blood Pressure 136/80 145/72 H 118/73 Blood Pressure Mean 85 100 85 Pulse Oximetry 97 97 Oxygen Delivery Method Sepsis Recent Fever Within 48 Hours Sepsis Action Taken by Nursing 04/19/20 21:01 Temperature Temperature Source Pulse Rate 73 Pulse Rate [Apical] Pulse Rate from SpO2 Sensor 74 Respiratory Rate 20 Respiratory Effort / Characteristics Respiratory Depth Respiratory Pattern Blood Pressure 122/70 Blood Pressure Mean 82 Pulse Oximetry 95 Oxygen Delivery Method Sepsis Recent Fever Within 48 Hours Sepsis Action Taken by Nursing VITAL SIGNS - Vital signs and nursing notes were reviewed. GENERAL - 75-year-old female appearing stated age who is in no acute distress. Communicates well with provider and answers questions appropriately. SKIN - Without rashes. HEAD - NC/AT. EYES - PERRL with EOMI bilaterally. Sclera anicteric. Palpebral conjunctiva pink and moist with no injection noted. EARS - No deformities of external structures noted on gross examination bilaterally. No pain elicited with palpation of the tragus bilaterally. External auditory canals without discharge or otorrhea. Tympanic membranes pearly gonzalez without retraction or bulging. No fluid or purulent material visualized behind the TM. Handle of malleus, umbo, cone of light, pars tensa/flaccid all easily visualized. NOSE - Midline and without cyanosis. No epistaxis or purulent drainage noted. Septum midline without deviation or septal hematoma noted. MOUTH/OROPHARYNX - Without perioral cyanosis. Buccal mucosa pink and moist and without leukoplakia. Tongue midline with equal elevation of palate bilaterally. No tonsillar hypertrophy, erythema, or exudates noted. dentition noted. NECK - Neck with FROM. Supple to palpation. lymphadenopathy noted. No nuchal rigidity. LUNGS - Chest wall symmetric without accessory muscle use, intercostals retractions, or central cyanosis. Normal vesicular breath sounds CTA B/L. No wheezes, rales, or rhonchi appreciated. CARDIAC - RRR with S1/S2. No murmur, rubs, or gallops appreciated. ABDOMEN - Abdominal contour without pulsations or visible masses. BS normoactive all four quadrants. No tenderness, palpable masses, hepatosplenomegaly, or ascites noted. EXTREMITIES - No clubbing or peripheral cyanosis. No pretibial edema present. +3/5 radial, posterior tibial, and dorsalis pedis pulses palpated throughout. +5/5 strength noted in UE/LE bilaterally. NEUROLOGIC - Cranial nerves II through XII grossly intact. Sensory intact to light touch throughout. Patellar reflexes +2/4. PSYCH - A&Ox3 and cooperates fully with examiner. Pt is very pleasant and interacts well with examiner. Course Administered Medications Sodium Chloride (Nss 1000ml) 1,000 mls @ 125 mls/hr IV .Q8H DAO Stop: 04/20/20 18:29 Last Admin: 04/19/20 18:58 Dose: 125 mls/hr Documented by: [id number] Discontinued Medications Sodium Chloride (Nss 1000ml) 500 mls @ 999 mls/hr IV .Q31M ONE Stop: 04/19/20 15:38 Last Infusion: 04/19/20 15:57 Dose: 0 mls/hr Documented by: [id number] Admin: 04/19/20 15:26 Dose: 999 mls/hr Documented by: [id number] Acetaminophen (Ofirmev) 1,000 mg in 100 mls @ 400 mls/hr IV NOW STA Stop: 04/19/20 15:22 Last Infusion: 04/19/20 15:43 Dose: 0 mls/hr Documented by: [id number] Admin: 04/19/20 15:25 Dose: 400 mls/hr Documented by: [id number] Ceftriaxone Sodium (Rocephin) 2,000 mg in 70 mls @ 140 mls/hr IV NOW STA Stop: 04/19/20 15:37 Last Infusion: 04/19/20 15:56 Dose: 0 mls/hr Documented by: [id number] Admin: 04/19/20 15:26 Dose: 140 mls/hr Documented by: [id number] Sodium Chloride (Nss) 500 mls @ 999 mls/hr IV .Q31M ONE Stop: 04/19/20 17:41 Last Infusion: 04/19/20 17:56 Dose: 0 mls/hr Documented by: [id number] Admin: 04/19/20 17:25 Dose: 999 mls/hr Documented by: [id number] Morphine Sulfate (Morphine Sulfate) 2 mg IV NOW STA Stop: 04/19/20 15:09 Last Admin: 04/19/20 15:25 Dose: 2 mg Documented by: [id number] Medical Decision Making Differential Diagnosis Infection, dehydration, metabolic abnormality, hypo/hyperglycemia, electrolyte disturbance, anemia, hypoxia, cardiac sources, intracerebral event, toxicologic, neurologic, as well as other pathologies. Medical Records Attestation: I reviewed the patient's medical records. Home Medications Current Medication List: was personally reviewed by me Laboratory Data Attestation: I reviewed the patient's lab results. Result diagrams: 04/19/20 15:54 04/19/20 15:54 Lab Results 04/19/20 04/19/20 04/19/20 Range/Units 15:54 15:54 16:41 WBC 14.09 H (4.8-10.8) K/uL RBC 4.76 (4.2-5.4) M/uL Hgb 13.5 (12.0-16.0) g/dL Hct 41.7 (37-47) % MCV 87.6 (80-100) fL MCH 28.4 (25-34) pg MCHC 32.4 (32-36) g/dL RDW Std Deviation 47.5 H (36.4-46.3) fL RDW Coeff of Stephan 14.7 H (11.5-14.5) % Plt Count 296 (130-400) K/uL MPV 11.5 H (7.4-10.4) fL Immature Gran % (Auto) 0.2 % Neut % (Auto) 84.9 % Lymph % (Auto) 6.9 % [place] % (Auto) 7.8 % Eos % (Auto) 0.1 % Baso % (Auto) 0.1 % Neut # (Auto) 11.96 H (1.4-6.5) K/uL Lymph # (Auto) 0.97 L (1.2-3.4) K/uL [place] # (Auto) 1.10 H (0.11-0.59) K/uL Eos # (Auto) 0.01 (0-0.5) K/uL Baso # (Auto) 0.02 (0-0.2) K/uL Immature Gran # (Auto) 0.03 H (0.00-0.02) K/uL Sodium 137 (136-145) mmol/L Potassium 4.0 (3.5-5.1) mmol/L Chloride 105 (98-107) mmol/L Carbon Dioxide 24 (21-32) mmol/L Anion Gap 8.0 (3-11) BUN 28 H (7-18) mg/dl Creatinine 1.34 H (0.6-1.2) mg/dl Est Cr Clr Drug Dosing 37.5 ml/min Est GFR ( Amer) 45.1 Est GFR (Non-Af Amer) 38.9 BUN/Creatinine Ratio 20.7 H (10-20) Glucose 107 H (70-99) mg/dl Calcium 9.1 (8.5-10.1) mg/dl Total Bilirubin 1.2 H (0.2-1) mg/dl AST 38 H (15-37) U/L ALT 16 (12-78) U/L Alkaline Phosphatase 112 (45-117) U/L Total Creatine Kinase 1442 H (26-192) U/L CK-MB (CK-2) 17.9 H (0.5-3.6) ng/ml CK/CKMB % Calc 1.2 (0-3.0) Troponin I < 0.015 (0-0.045) ng/ml Total Protein 7.2 (6.4-8.2) gm/dl Albumin 3.5 (3.4-5.0) gm/dl Globulin 3.7 (2.5-4.0) gm/dl Albumin/Globulin Ratio 0.9 (0.9-2) TSH 2.330 (0.300-4.500) uIu/ml Urine Color Dark Yellow Urine Appearance Cloudy A (Clear) Urine pH 5.0 (4.5-7.5) Ur Specific [place] 1.021 (1.000-1.030) Urine Protein Negative (Negative) Urine Glucose (UA) Negative (Negative) Urine Ketones Negative (Negative) Urine Blood 1+ H (Negative) Urine Nitrite Positive A (Negative) Urine Bilirubin Negative (Negative) Urine Urobilinogen Negative (Negative) Ur Leukocyte Esterase 2+ H (Negative) Urine WBC (Auto) >30 H (0-5) /hpf Urine RBC (Auto) 0-4 (0-4) /hpf U Hyaline Cast (Auto) Not Reportable U Epithel Cells (Auto) 0-5 (0-5) /lpf Urine Bacteria (Auto) 4+ H (Negative) Imaging Data Radiologist's Impression: [facility], [place] [phone] XRay Report Patient: LISA THOMAS Date: 04/19/20 MR#: [id number]: [address] Acct ID:[id number]: [facility] Zip[facility] [place] [address] Age: 75Location: ED Sex: F Room/Bed: Att Phy:Diagnosis: mhid [place] Phy: Kari Walters DOService Date: 04/19/20 Fam Phy:Interpreting Phy: Demetrius Caraballo MD Admit Phy: Ordering Phy: Himanshu Zelaya MD cc: ~ XR chest 1V portable HISTORY: weakness COMPARISON: Chest 08/27/2019. FINDINGS: The heart remains enlarged. No new focal lung consolidations to suggest pneumonia. No evidence for pulmonary edema. No pleural effusion is. No pneumothorax. IMPRESSION: Stable mild cardiomegaly. ACT 112: Negative or not required by law. Electronically signed by: Demetrius Caraballo M.D. 04/19/2020 3:46 PM Dictated: 04/19/20 1540 Transcribed: 04/19/20 1540 [place], [place] [phone] CT Scan Report Patient: LISA THOMAS Date: 04/19/20 MR#: [id number]: [address] Acct ID:[id number]: Date: [address] [place] [address] Zip: [place] [address] Age: 75Location: ED Sex: F Room/Bed: Att Phy:Diagnosis: mhid [place] Phy: Kari Walters DOService Date: 04/19/20 Fam Phy:Interpreting Phy: Demetrius Caraballo MD Admit Phy: Ordering Phy: Himanshu Zelaya MD cc: ~ HEAD CT NONCONTRAST CT DOSE: 614.27 mGy.cm HISTORY: Altered mental status. TECHNIQUE: Multiaxial CT images of the head were performed without the use of intravenous contrast. Automated exposure control was utilized for this study. A dose lowering technique was utilized adhering to the principles of ALARA. Comparison: None. Findings: The paranasal sinuses and mastoid air cells are clear. The calvarium and skull base are intact. There is no hematoma or acute infarct. White matter hypodensity is nonspecific but suggestive of microvascular ischemic change. The ventricles and sulci demonstrate mild age-related involutional changes. There is a 2 cm hyperdense extra-axial mass within the left high convexity with associated calcification. This likely represents a meningioma. No adjacent edema. No midline shift. Impression: 1. No acute intracranial abnormality. 2. A 2 cm extra-axial mass within the left high convexity. This favors a meningioma. ACT 112: Negative or not required by law. Electronically signed by: Demetrius Caraballo M.D. 04/19/2020 4:17 PM Dictated: 04/19/20 1612 ECG Data Attestation: I personally reviewed and interpreted this ECG as follows: Indication: + altered mental status Rate (beats per minute): 88 Rhythm: + atrial fibrillation ECG Terril: + Normal ECG ST segments: no ST depression and no ST elevation ECG Findings: + PVCs Comparison ECG Date: from (09/01/2019) Change: no significant change MDM Narrative Patient was seen and evaluated as above in room A10. Review was performed of nursing notes and vital signs. I did review pertinent previous visits and patient history. After obtaining a thorough history and physical examination the above work up was performed. This is a 75-year-old female who presents the emergency department with concerns about hallucinations. Patient does have an elevation in her white blood cell count does appear to have a urinary tract infection. Based on all these fi ndings I did discuss the case with the hospitalist service who did agree to admit the patient. Patient is in agreement with the treatment plan. An order was placed for continuous cardiac monitoring. The monitor shows a rate of 73 with Normal Sinus rhythm. The patient was evaluated during the global COVID-19 pandemic, and that diagnosis was suspected/considered upon their initial presentation. Their evaluation, treatment and testing was consistent with current guidelines for patients who present with complaints or symptoms that may be related to COVID- 19. Impression & Plan UTI (urinary tract infection), KALEE (acute kidney injury), Altered mental status Discharge Plan Visit Data Chief Complaint: Illness Stated Complaint: mhid ED Provider: Himanshu Zelaya Discharge Problem: UTI (urinary tract infection), KALEE (acute kidney injury), Altered mental status Forms Stand Alone Forms: [facility] Prescriptions Prescriptions: No Action Eliquis 5 mg tablet 5 mg PO BID RF: 0 buspirone 10 mg tablet 10 mg PO BID RF: 0 montelukast 10 mg tablet 10 mg PO DAILY RF: 0 gabapentin 300 mg capsule 300 mg PO HS RF: 0 metoprolol succinate 50 mg tablet extended release 24 hr 50 mg PO BID RF: 0 losartan 25 mg tablet 25 mg PO DAILY RF: 0 sertraline 25 mg tablet 25 mg PO DAILY RF: 0 digoxin 125 mcg (0.125 mg) tablet 125 mcg PO 3XWK RF: 0 potassium chloride 10 mEq tablet,ER particles/crystals 10 meq PO DAILY RF: 0 spironolactone 25 mg tablet 25 mg PO DAILY RF: 0 levothyroxine 25 mcg tablet 25 mcg PO QAM RF: 0 diltiazem HCl [Cardizem CD] 300 mg capsule,extended release 24hr 300 mg PO DAILY RF: 0 furosemide 20 mg Tablet 20 mg PO QAM Qty: 30 RF: 5 atorvastatin 40 mg Tablet 40 mg PO QAM Qty: 30 RF: 5 clopidogrel 75 mg Tablet 75 mg PO QAM Qty: 30 RF: 5 nitroglycerin [Nitrostat] 0.4 mg tablet, sublingual 0.4 mg Sublingual Q5M PRN (Reason: chest pain) Qty: 25 RF: 1 Referrals Referrals: Kari Walters DO [Primary Care Provider] - Discharge Problem: UTI (urinary tract infection) Qualifiers: Urinary tract infection type: site unspecified Hematuria presence: without hematuria Qualified Code(s): N39.0 - Urinary tract infection, site not specified Altered mental status Qualifiers: Altered mental status type: unspecified Qualified Code(s): R41.82 - Altered mental status, unspecified
[2020-04-19] MEDS ORDERED: NITROGLYCERIN SL 0.4 MG/TAB TAB SL PRN (23:09)
[2020-04-20] MEDS: APIXABAN 5 MG TABLET PO SCH ×3 (00:23→20:45)
[2020-04-20] MEDS: GABAPENTIN 300 MG CAP PO SCH ×2 (00:23→20:46)
[2020-04-20] MEDS: METOPROLOL SUCC 50MG EXT REL TAB PO SCH ×3 (00:24→20:45)
[2020-04-20] MEDS ORDERED: OXYCODONE HCL IR 5 MG TAB (IMMEDIATE RELEASE) PO STA (00:41)
[2020-04-20] MEDS: NYSTATIN POWDER 15GM BTL EXT SCH ×3 (03:19→20:46)
[2020-04-20] MEDS: SODIUM CHLORIDE 0.9% 1000ML 1,000 ML IV SCH ×2 (03:19→10:39)
[2020-04-20] MEDS: LEVOTHYROXINE SODIUM 25 MCG TABLET PO SCH (06:40)
[2020-04-20 06:41] LABS: Basophils # (auto) 0.02 K/uL (0-0.2); Basophils % (auto) 0.2 %; Eosinophils # (auto) 0.18 K/uL (0-0.5); Hematocrit (blood only) 36.1 % (37-47); Hemoglobin 11.9 g/dL (12.0-16.0); Immature Granulocytes # (auto) 0.03 K/uL (0.00-0.02); Immature Granulocytes % (auto) 0.3 %; Lymphocytes # (auto) 1.45 K/uL (1.2-3.4); Lymphocytes % (auto) 15.8 %; Mean Corpuscular Hemoglobin 28.4 pg (25-34); Mean Corpuscular Volume 86.2 fL (80-100); Mean Platelet Volume 10.7 fL (7.4-10.4); Monocytes # (auto) 1.07 K/uL (0.11-0.59); Monocytes % (auto) 11.7 %; Neutrophils # (auto) 6.41 K/uL (1.4-6.5); Platelet Count 238 K/uL (130-400); RDW Standard Deviation 47.6 fL (36.4-46.3); Red Blood Count 4.19 M/uL (4.2-5.4); White Blood Count 9.16 K/uL (4.8-10.8)
[2020-04-20 07:16] LABS: BUN Creatinine Ratio 20.3 (10-20); Calcium 8.2 mg/dl (8.5-10.1); Creatinine Clr Calc Pharmacy 54.2 ml/min; Est GFR (African American) 69.3; Est GFR (Non-African American) 59.8; Magnesium 2.1 mg/dl (1.8-2.4); Potassium 3.8 mmol/L (3.5-5.1)
[2020-04-20] MEDS: dilTIAZem HCL 300 MG CAPCR PO SCH (07:54)
[2020-04-20] MEDS: SERTRALINE HCL 50 MG TABLET PO SCH (07:54)
[2020-04-20] MEDS: MONTELUKAST SODIUM 10 MG TABLET PO SCH (07:54)
[2020-04-20] MEDS: POTASSIUM CHLORIDE 10 MEQ TABCR PO SCH (07:54)
[2020-04-20] MEDS: CLOPIDOGREL BISULFATE 75 MG TAB PO SCH (07:54)
[2020-04-20] MEDS: cefTRIAXone SODIUM 2,000 MG in DEXTROSE 5% 50 ML IV SCH (16:11)
[2020-04-20] MEDS: TRAMADOL HCL 50 MG TABLET PO PRN ×2 (16:11→21:29)
[2020-04-20] MEDS: DIGOXIN 0.125 MG TAB PO SCH (16:12)
--- NOTE | 2020-04-20 18:26 | Hospitalist Progress Note ---
Date of Service April 20, 2020 Assessment & Plan (1) UTI (urinary tract infection): UTI Urine culture: Gram-negative bacilli Leukocytosis normalized Continue IV fluids Continue Rocephin Mild rhabdomyolysis Likely secondary to fall Continue IV fluids Monitor CK levels Meningioma CT Head: No acute intracranial abnormality. A 2 cm extra-axial mass within the left high convexity. This favors a meningioma. Incidental finding on CT scan Follow up as outpatient (2) KALEE (acute kidney injury): On diuretics-- spironolactone and Lasix for diastolic heart failure Dehydrated on admission Hold diuretics Continue IV fluids for now Monitor volume status Cr levels improved Monitor renal function Also hold lisinopril for now (3) Mood disorder: H/O Mood disorder with anxiety Continue Zoloft (4) Chronic diastolic heart failure: Lasix, and spironolactone as able Monitor volume status Hypothyroidism continue levothyroxine (5) Asthma: Stable DVT Px: Eliquis Admission and Anticipated Discharge Date Admission Date: April 19, 2020 Subjective Patient is seen and examined at bedside Sleepy this morning Complains of chronic left-sided pain Hallucinations resolved States having some dysuria Denies any chest pain, shortness of breath, dizziness, nausea, abdominal pain Review of Systems Review of Systems: All systems reviewed & are unremarkable except as noted in HPI & below Physical Exam Physical Exam: Physical Exam: Vitals signs as noted above General Appearance:Obese, no apparent distress Head: normocephalic, Atraumatic Eyes: normal inspection, EOMI Neck: supple, Trachea midline Respiratory/Chest: Normal breath sounds, CTA Cardiovascular: S1, S2, + murmur Abdomen/GI:Soft, Non tender, Bowel sounds present Extremities/Musculoskelatal:normal inspection, 1+ B/L leg edema Neurologic/Psych:AAOX3, grossly no focal neurological deficits Skin: normal color, warm Results & Data Results & Data ([facility]) Vital Signs (Past 12 Hours) Vital Signs Temp Pulse Pulse Resp BP Pulse Ox 04/20/20 16:30 65 04/20/20 16:20 37.1 C 63 20 116/73 94 04/20/20 16:12 62 04/20/20 11:50 36.6 C 87 16 131/76 95 04/20/20 08:00 85 04/20/20 07:27 36.8 C 87 16 124/77 92 Laboratory Results Short CBC 04/20/20 Range/Units 06:25 WBC 9.16 (4.8-10.8) K/uL Hgb 11.9 L (12.0-16.0) g/dL Hct 36.1 L (37-47) % Plt Count 238 (130-400) K/uL BMP 04/20/20 06:25 Sodium 141 Potassium 3.8 Chloride 112 H Carbon Dioxide 24 BUN 19 H Creatinine 0.94 D Glucose 94 Calcium 8.2 L Cardiac Enzymes 04/20/20 Range/Units 06:25 Total Creatine Kinase 1040 H (26-192) U/L (1) UTI (urinary tract infection) Hematuria presence: without hematuria Urinary tract infection type: site unspecified Qualified Code(s): N39.0 - Urinary tract infection, site not specified
[2020-04-21] MEDS: LEVOTHYROXINE SODIUM 25 MCG TABLET PO SCH (05:49)
[2020-04-21 06:20] LABS: Hematocrit (blood only) 35.4 % (37-47); Hemoglobin 11.7 g/dL (12.0-16.0); Mean Corpuscular Hgb Conc 33.1 g/dL (32-36); Mean Corpuscular Volume 87.6 fL (80-100); Platelet Count 256 K/uL (130-400); RDW Coefficient of Variation 15.2 % (11.5-14.5); RDW Standard Deviation 49.4 fL (36.4-46.3); Red Blood Count 4.04 M/uL (4.2-5.4); White Blood Count 8.83 K/uL (4.8-10.8)
[2020-04-21 06:55] LABS: BUN Creatinine Ratio 18.5 (10-20); Calcium 8.3 mg/dl (8.5-10.1); Creatinine Clr Calc Pharmacy 59.2 ml/min; Est GFR (African American) 76.1; Est GFR (Non-African American) 65.6
[2020-04-21] MEDS: METOPROLOL SUCC 50MG EXT REL TAB PO SCH ×2 (08:04→20:04)
[2020-04-21] MEDS: MONTELUKAST SODIUM 10 MG TABLET PO SCH (08:04)
[2020-04-21] MEDS: NYSTATIN POWDER 15GM BTL EXT SCH ×2 (08:04→20:03)
[2020-04-21] MEDS: CLOPIDOGREL BISULFATE 75 MG TAB PO SCH (08:04)
[2020-04-21] MEDS: APIXABAN 5 MG TABLET PO SCH ×2 (08:04→20:03)
[2020-04-21] MEDS: SERTRALINE HCL 50 MG TABLET PO SCH (08:04)
[2020-04-21] MEDS: POTASSIUM CHLORIDE 10 MEQ TABCR PO SCH (08:04)
[2020-04-21] MEDS: dilTIAZem HCL 300 MG CAPCR PO SCH (08:05)
[2020-04-21] MEDS: cefTRIAXone SODIUM 2,000 MG in DEXTROSE 5% 50 ML IV SCH (15:57)
[2020-04-21] MEDS: TRAMADOL HCL 50 MG TABLET PO PRN ×2 (16:00→21:02)
--- NOTE | 2020-04-21 16:09 | Hospitalist Progress Note ---
Date of Service April 21, 2020 Assessment & Plan (1) UTI (urinary tract infection): UTI Urine culture: Klebsiella pneumonia Leukocytosis normalized Received IV fluids Continue Rocephin Mild rhabdomyolysis Likely secondary to fall Received IV fluids CK levels improved Meningioma CT Head: No acute intracranial abnormality. A 2 cm extra-axial mass within the left high convexity. This favors a meningioma. Incidental finding on CT scan Follow up as outpatient (2) KALEE (acute kidney injury): On diuretics-- spironolactone and Lasix for diastolic heart failure Dehydrated on admission Received IV fluids Monitor volume status Cr levels normalized Monitor renal function Diuretics/lisinopril held (3) Mood disorder: H/O Mood disorder with anxiety Continue Zoloft (4) Chronic diastolic heart failure: Resume Lasix, spironolactone tomorrow Monitor volume status Hypothyroidism continue levothyroxine (5) Asthma: Stable DVT Px: Eliquis Admission and Anticipated Discharge Date Admission Date: April 19, 2020 Subjective Patient is seen and examined at bedside Feels lot better today Dysuria resolved Denies any chest pain, SOB, dizziness, nausea, abdominal pain, hematuria Offers no other complaints Review of Systems Review of Systems: All systems reviewed & are unremarkable except as noted in HPI & below Physical Exam Physical Exam: Physical Exam: Vitals signs as noted above General Appearance:Obese, no apparent distress Head: normocephalic, Atraumatic Eyes: normal inspection, EOMI Neck: supple, Trachea midline Respiratory/Chest: Normal breath sounds, CTA Cardiovascular: Irregularly Irregular, + murmur Abdomen/GI:Soft, Non tender, Bowel sounds present Extremities/Musculoskelatal:normal inspection, 1+ B/L leg edema Neurologic/Psych:AAOX3, grossly no focal neurological deficits Skin: normal color, warm Results & Data Results & Data ([facility]) Vital Signs (Past 12 Hours) Vital Signs Temp Pulse Pulse Resp BP Pulse Ox 04/21/20 12:05 36.5 C 58 L 18 105/62 97 04/21/20 08:30 49 L 04/21/20 08:08 36.3 C L 69 18 110/66 90 04/21/20 08:00 65 04/21/20 04:52 36.5 C 58 L 18 101/58 L 94 Laboratory Results Short CBC 04/21/20 Range/Units 05:58 WBC 8.83 (4.8-10.8) K/uL Hgb 11.7 L (12.0-16.0) g/dL Hct 35.4 L (37-47) % Plt Count 256 (130-400) K/uL BMP 04/21/20 05:58 Sodium 139 Potassium 4.0 Chloride 111 H Carbon Dioxide 22 BUN 16 Creatinine 0.87 Glucose 87 Calcium 8.3 L Cardiac Enzymes 04/21/20 Range/Units 05:58 Total Creatine Kinase 529 H (26-192) U/L (1) UTI (urinary tract infection) Hematuria presence: without hematuria Urinary tract infection type: site unspecified Qualified Code(s): N39.0 - Urinary tract infection, site not specified
[2020-04-21] MEDS: GABAPENTIN 300 MG CAP PO SCH (20:03)
[2020-04-22] MEDS: LEVOTHYROXINE SODIUM 25 MCG TABLET PO SCH (05:47)
[2020-04-22 07:08] LABS: BUN Creatinine Ratio 21.3 (10-20); Calcium 8.5 mg/dl (8.5-10.1); Creatinine Clr Calc Pharmacy 55.9 ml/min; Est GFR (African American) 70.2; Est GFR (Non-African American) 60.5; Potassium 4.4 mmol/L (3.5-5.1)
[2020-04-22] MEDS: dilTIAZem HCL 300 MG CAPCR PO SCH (08:47)
[2020-04-22] MEDS: POTASSIUM CHLORIDE 10 MEQ TABCR PO SCH (08:47)
[2020-04-22] MEDS: TRAMADOL HCL 50 MG TABLET PO PRN ×2 (08:47→12:33)
[2020-04-22] MEDS: APIXABAN 5 MG TABLET PO SCH ×2 (08:47→20:29)
[2020-04-22] MEDS: MONTELUKAST SODIUM 10 MG TABLET PO SCH (08:47)
[2020-04-22] MEDS: METOPROLOL SUCC 50MG EXT REL TAB PO SCH ×2 (08:48→20:28)
[2020-04-22] MEDS: NYSTATIN POWDER 15GM BTL EXT SCH ×2 (08:48→20:29)
[2020-04-22] MEDS: SERTRALINE HCL 50 MG TABLET PO SCH (08:48)
[2020-04-22] MEDS: CLOPIDOGREL BISULFATE 75 MG TAB PO SCH (08:48)
--- NOTE | 2020-04-22 14:37 | XRay Report ---
XR thoracolumbar spine 2V CLINICAL HISTORY: back pain pain COMPARISON STUDY: MRI lumbar spine FINDINGS: Moderate levo scoliosis. Considerable degenerative disc changes throughout. Findings consis tent with a posterior laminectomy and fusion from L2 through S1. Increased fecal load throughout the colon consistent with fecal stasis. IMPRESSION: 1. Degenerative and postoperative change. 2. Scoliosis. 3. Fecal stasis throughout the colon ACT 112: Negative or not required by law. The above report was generated using voice recognition software. It may contain grammatical, syntax or spelling errors. Electronically signed by: Johann Pena M.D. 04/22/2020 2:35 PM
--- NOTE | 2020-04-22 14:58 | XRay Report ---
XR hip LT 2V w pelvis CLINICAL HISTORY: left hip pain COMPARISON STUDY: None. FINDINGS: Posterior decompression fusion within the visualized lumbar spine. Multiple suture coils se en within the pelvis. No acute fracture or dislocation within the pelvis or hips. Soft tissues are un remarkable. Moderate well-formed stool within the colon and rectum. Severe cartilage space narrowing with subchondral sclerosis and subchondral cystic change within the bilateral hips. There is bone-on- bone articulation. This is consistent with osteoarthritis. Possible lucency within the left superior femoral head and sclerosis within the right superior femoral head. There may be slight collapse of th e femoral heads. This could be due to long-standing degenerative change or superimposed avascular nec rosis. IMPRESSION: 1. Severe osteoarthritis within the bilateral hips with [id number] articulation. Possible avascular necrosis within the bilateral femoral heads. 2. No acute fracture or dislocation within the pelvis or hips. ACT 112: Negative or not required by law. Electronically signed by: Demetrius Caraballo M.D. 04/22/2020 2:39 PM
[2020-04-22] MEDS: OXYCODONE/ACETAMINOPHEN 5mg/325mg TAB PO PRN (17:03)
[2020-04-22] MEDS: cefTRIAXone SODIUM 2,000 MG in DEXTROSE 5% 50 ML IV SCH (17:03)
[2020-04-22] MEDS: POLYETHYLENE (MIRALAX) 17 GM PACK PO PRN (17:04)
[2020-04-22] MEDS: DIGOXIN 0.125 MG TAB PO SCH (17:04)
--- NOTE | 2020-04-22 17:37 | Hospitalist Progress Note ---
Date of Service April 22, 2020 Assessment & Plan (1) UTI (urinary tract infection): UTI Urine culture: Klebsiella pneumonia Leukocytosis normalized Received IV fluids Continue Rocephin while hospitalized Back Pain: Left Hip Pain H/O Sciatica --Thoracolumbar spine x-ray:The lateral projection confirms multilevel considerable degenerative disc changes throughout. The metallic hardware previously described appears to be intact. No evidence for subluxation. --Hip X ray:Severe osteoarthritis within the bilateral hips with ohqg-lb-amlq articulation. Possible avascular necrosis within the bilateral femoral heads. No acute fracture or dislocation within the pelvis or hips. Consulted Orthopedics Pain control Mild rhabdomyolysis Likely secondary to fall Received IV fluids CK levels improved Meningioma CT Head: No acute intracranial abnormality. A 2 cm extra-axial mass within the left high convexity. This favors a meningioma. Incidental finding on CT scan Follow up as outpatient (2) KALEE (acute kidney injury): On diuretics-- spironolactone and Lasix for diastolic heart failure Dehydrated on admission Received IV fluids Monitor volume status Cr levels normalized Monitor renal function KALEE resolved (3) Mood disorder: H/O Mood disorder with anxiety Continue Zoloft (4) Chronic diastolic heart failure: Resume Lasix, spironolactone Monitor volume status Hypothyroidism continue levothyroxine (5) Asthma: Stable DVT Px: Eliquis Admission and Anticipated Discharge Date Admission Date: April 19, 2020 Subjective Patient is seen and examined at bedside Complains of low back pain, left hip pain Denies any chest pain, SOB, dizziness, nausea, abdominal pain, hematuria Offers no other complaints Review of Systems Review of Systems: All systems reviewed & are unremarkable except as noted in HPI & below Physical Exam Physical Exam: Physical Exam: Vitals signs as noted above General Appearance:Obese, no apparent distress Head: normocephalic, Atraumatic Eyes: normal inspection, EOMI Neck: supple, Trachea midline Respiratory/Chest: Normal breath sounds, CTA Cardiovascular: Irregularly Irregular, + murmur Abdomen/GI:Soft, Non tender, Bowel sounds present Extremities/Musculoskelatal:normal inspection, 1+ B/L leg edema Neurologic/Psych:AAOX3, grossly no focal neurological deficits Skin: normal color, warm Results & Data Results & Data ([facility]) Vital Signs (Past 12 Hours) Vital Signs Temp Pulse Pulse Resp BP Pulse Ox 04/22/20 17:04 71 04/22/20 16:00 65 04/22/20 15:10 36.7 C 65 18 107/64 96 04/22/20 11:51 36.9 C 70 17 111/60 91 04/22/20 07:33 36.4 C L 72 17 108/68 92 04/22/20 07:00 55 L Laboratory Results [facility] 04/22/20 06:06 Sodium 139 Potassium 4.4 Chloride 108 H Carbon Dioxide 28 BUN 20 H Creatinine 0.93 Glucose 93 Calcium 8.5 (1) UTI (urinary tract infection) Hematuria presence: without hematuria Urinary tract infection type: site unspecified Qualified Code(s): N39.0 - Urinary tract infection, site not spe cified
[2020-04-22] MEDS: GABAPENTIN 300 MG CAP PO SCH (20:28)
[2020-04-22] MEDS ORDERED: KETOROLAC 30 MG/ML VIAL ONE (20:53)
[2020-04-23] MEDS: OXYCODONE/ACETAMINOPHEN 5mg/325mg TAB PO PRN ×3 (00:19→14:00)
[2020-04-23] MEDS: LEVOTHYROXINE SODIUM 25 MCG TABLET PO SCH (05:39)
[2020-04-23 07:40] LABS: BUN Creatinine Ratio 22.7 (10-20); Calcium 8.9 mg/dl (8.5-10.1); Creatinine Clr Calc Pharmacy 56.9 ml/min; Est GFR (Non-African American) 62.2; Potassium 4.3 mmol/L (3.5-5.1)
[2020-04-23] MEDS: METOPROLOL SUCC 50MG EXT REL TAB PO SCH ×3 (07:58→20:28)
[2020-04-23] MEDS: POLYETHYLENE (MIRALAX) 17 GM PACK PO PRN (07:59)
[2020-04-23] MEDS: SPIRONOLACTONE 25 MG TAB PO SCH (07:59)
[2020-04-23] MEDS: FUROSEMIDE 20 MG TAB PO SCH (07:59)
[2020-04-23] MEDS: APIXABAN 5 MG TABLET PO SCH ×2 (08:00→20:27)
[2020-04-23] MEDS: MONTELUKAST SODIUM 10 MG TABLET PO SCH (08:00)
[2020-04-23] MEDS: CLOPIDOGREL BISULFATE 75 MG TAB PO SCH (08:00)
[2020-04-23] MEDS: POTASSIUM CHLORIDE 10 MEQ TABCR PO SCH (08:00)
[2020-04-23] MEDS: SERTRALINE HCL 50 MG TABLET PO SCH (08:00)
[2020-04-23] MEDS: NYSTATIN POWDER 15GM BTL EXT SCH ×2 (08:00→20:29)
[2020-04-23] MEDS: dilTIAZem HCL 300 MG CAPCR PO SCH (08:01)
[2020-04-23] MEDS: dilTIAZem HCL 240 MG CAPCR PO SCH (09:42)
--- NOTE | 2020-04-23 10:18 | Orthopedic Consultation ---
Date of Consultation April 23, 2020 Assessment & Plan (1) Bilateral primary osteoarthritis of hip: At this time I would like to update an MRI of the lumbar spine to rule out any pathology contributing to her symptom complex. However believe the majority of her symptoms are in fact the advanced hip osteoarthritis possible AVN bilaterally. I have discussed with her outpatient follow-up with a hip surgeon. She understands and agrees. Present on Admission?: Yes History of Present Illness Reason for Consultation: Back and leg pain Attending Physician: Grady Griffiths MD History of Present Illness This is a 75-year-old female who presents with worsening back and bilateral leg pain. She describes her symptoms as involving the lumbosacral junction radiating into the left buttock and groin and down the leg to the knee. Activity or any hip flexion exacerbates her symptoms. They have declined significantly over the past several weeks. She denies any trauma fall or event. She does have a history of multilevel lumbar decompression and fusion. Allergies Allergy/AdvReac Type Severity Reaction Status Date / Time adhesive Allergy Unknown HEAVIER Verified 04/19/20 15:33 SURG TAPE-REDNESS SORE SKIN cat dander Allergy Unknown ITCHY Verified 04/19/20 15:33 NOSE, ITCHY EYES,RUNNY NOSE grass pollen-perennial rye, Allergy Unknown GRASS,MOLD-ITCHY Verified 04/19/20 15:33 standar EYES RUNNY NOSE latex Allergy Unknown CONTACT Verified 04/19/20 15:33 DERMATITIS tetanus toxoid, adsorbed Allergy Unknown SWELLING Verified 04/19/20 15:33 AT SITE KOLE Inhibitors AdvReac Unknown COUGH Unverified 04/19/20 15:33 Home Medications Home Medications Medication Instructions Recorded Confirmed Type buspirone 10 mg PO BID 01/24/19 04/19/20 History montelukast 10 mg PO DAILY 01/24/19 04/19/20 History gabapentin 300 mg PO HS 07/03/19 04/19/20 History apixaban 5 mg tablet 5 mg PO BID 08/19/19 04/19/20 History levothyroxine 25 mcg PO QAM 08/27/19 04/19/20 History atorvastatin 40 mg PO QAM #30 tab 09/02/19 04/19/20 Rx clopidogrel 75 mg PO QAM #30 tab 09/02/19 04/19/20 Rx diltiazem HCl [Cardizem CD] 300 mg PO DAILY 09/02/19 04/19/20 History furosemide 20 mg PO QAM #30 tab 09/02/19 04/19/20 Rx nitroglycerin [Nitrostat] 0.4 mg SUBLINGUAL Q5M PRN #25 tab 09/02/19 04/19/20 Rx digoxin 125 mcg PO 3XWK 04/19/20 04/19/20 History losartan 25 mg PO DAILY 04/19/20 04/19/20 History metoprolol succinate 50 mg PO BID 04/19/20 04/19/20 History potassium chloride 10 meq PO DAILY 04/19/20 04/19/20 History sertraline 25 mg PO DAILY 04/19/20 04/19/20 History spironolactone 25 mg PO DAILY 04/19/20 04/19/20 History Patient History Medical History Arthritis (Chronic) Asthma (Chronic) Atrial fibrillation Chronic diastolic heart failure (Chronic) Coronary artery disease 08/31/19 thrombus RCA, PCI with JAILENE Depression (Chronic) Dyslipidemia History of DVT (deep vein thrombosis) Hypertension Mood disorder (Chronic) Prediabetes (Chronic) Scoliosis (Chronic) Surgical History H/O: hysterectomy (Chronic) History of mastectomy (Chronic) Status post coronary artery stent placement 08/31/19 thrombus RCA, PCI with JAILENE Family History Other Heart disease Social History Preferred Language: Citizen Of [place] Communication Ability: Effective Taxation Agent Required: No Beliefs That Will Affect Care: None Current Living Situation: Family Current Living Situation Comment: w/ son Feels Safe at Home: Yes Smoking Status: Never smoker Second Hand Exposure: No ; Hx Alcohol Use: Yes Alcohol type: wine Hx Substance Use: No Physical Exam Physical Exam: On exam she is alert and oriented. She is cooperative. She has marked hesitation to range of motion of her legs. She is a markedly positive logroll and significant pain with straight leg raising on the left. She exhibits breakaway weakness. Results & Data ([facility]) Vital Signs (Past 12 Hours) Vital Signs Temp Pulse Pulse Resp BP Pulse Ox 04/23/20 09:38 55 L 102/65 04/23/20 08:33 58 L 04/23/20 08:04 37.0 C 58 L 18 93/59 L 93 04/23/20 03:31 36.7 C 53 L 18 100/54 L 93 04/23/20 00:59 66 04/22/20 23:58 36.5 C 62 20 96/63 L 97
--- NOTE | 2020-04-23 14:59 | CT Scan Report ---
CT OF THE RIGHT HIP WITHOUT CONTRAST CLINICAL HISTORY: avascular necrosis femoral head COMPARISON STUDY: Pelvis radiograph April 22, 2020. TECHNIQUE: Axial images of the right hip were obtained without IV contrast. Sagittal and coronal van nstructions were viewed. Automated exposure control was utilized for the study. A dose lowering tech nique was utilized adhering to the principles of ALARA. FINDINGS: Complete loss of the superior right hip joint space is noted. There is extensive osteophyte ptosis, subchondral sclerosis and subchondral cystic change. Note is made of a 1.8 cm subchondral mi xed lucent and sclerotic focus within the superior aspect of the right femoral head. No acute fractur e is noted. There are no suspicious osseous lesions. Small right hip joint effusion is present. The C T of the left hip will be reported separately. IMPRESSION: 1. Severe osteoarthritis of the right hip. 2. 1.8 cm subchondral mixed lucent and sclerotic focus within the superior aspect of the right femora l head. This could be secondary to osteoarthritis or reflect underlying avascular necrosis. ACT 112: Negative or not required by law. Electronically signed by: Mohan Hutson M.D. 04/23/2020 2:58 PM
--- NOTE | 2020-04-23 15:03 | CT Scan Report ---
CT OF THE LEFT HIP WITHOUT CONTRAST CLINICAL HISTORY: avascular necrosis femoral head COMPARISON STUDY: Pelvis and left hip radiographs April 22, 2020. TECHNIQUE: Axial images of the left hip were obtained without IV contrast. Sagittal and coronal recon structions were viewed. Automated exposure control was utilized for the study. A dose lowering techn ique was utilized adhering to the principles of ALARA. FINDINGS: Note is made of complete loss of the left hip joint space. There is extensive osteophytosis , sclerosis and subchondral cystic change within the left acetabulum and femoral head. No acute fract ure is noted. There is no suspicious osseous lesion. There is a small left joint effusion. Note is ma de of several subchondral lucencies within the superior aspect of the left femoral head. This could i ndicate avascular necrosis with collapse or sequela of severe osteoarthritis. There is no left inguin al lymphadenopathy. Previous ventral hernia repair with mesh is partially imaged. Bladder is distende d. IMPRESSION: 1. Severe osteoarthritis of the left hip. 2. No acute fracture. 3. Several subchondral lucencies within the superior aspect of the left femoral head. These could ind icate sequela of severe osteoarthritis or underlying avascular necrosis with collapse. ACT 112: Negative or not required by law. Electronically signed by: Mohan Hutson M.D. 04/23/2020 3:02 PM
--- NOTE | 2020-04-23 16:41 | Hospitalist Progress Note ---
Date of Service April 23, 2020 Assessment & Plan (1) UTI (urinary tract infection): UTI Urine culture: Klebsiella pneumonia Leukocytosis normalized Received IV fluids Continue Rocephin Day #4 Back Pain: Left Hip Pain H/O Sciatica --Thoracolumbar spine x-ray:The lateral projection confirms multilevel considerable degenerative disc changes throughout. The metallic hardware previously described appears to be intact. No evidence for subluxation. --Hip X ray:Severe osteoarthritis within the bilateral hips with wery-an-pjax articulation. Possible avascular necrosis within the bilateral femoral heads. No acute fracture or dislocation within the pelvis or hips. --CT L hip:Severe osteoarthritis of the left hip. No acute fracture. Several subchondral lucencies within the superior aspect of the left femoral head. These could indicate sequela of severe osteoarthritis or underlying avascular necrosis with collapse. --CT R hip:Severe osteoarthritis of the right hip. 1.8 cm subchondral mixed lucent and sclerotic focus within the superior aspect of the right femoral head. This could be secondary to osteoarthritis or reflect underlying avascular necrosis. --MRI lumbar Spine:Pending Appreciate Orthopedics Input Pain control PT/OT Needs to be evaluated by hip surgeon inpatient Vs outpatient outpatient Mild rhabdomyolysis Likely secondary to fall Received IV fluids CK levels improved Meningioma CT Head: No acute intracranial abnormality. A 2 cm extra-axial mass within the l eft high convexity. This favors a meningioma. Incidental finding on CT scan Follow up as outpatient Atrial Fibrillation Bradycardia noted Discussed with on 04/23/20 Continue Metoprolol 50mg BID Cardizem dose decreased to 240mg daily On Digoxin M// On Eliquis for anticoagulation monitor (2) KALEE (acute kidney injury): On diuretics-- spironolactone and Lasix for diastolic heart failure Dehydrated on admission Received IV fluids Monitor volume status Cr levels normalized Monitor renal function KALEE resolved (3) Mood disorder: H/O Mood disorder with anxiety Continue Zoloft (4) Chronic diastolic heart failure: Resume Lasix, spironolactone Monitor volume status Hypothyroidism continue levothyroxine (5) Asthma: Stable DVT Px: Eliquis Admission and Anticipated Discharge Date Admission Date: April 19, 2020 Subjective Patient is seen and examined at bedside Persistent low back pain with minimal movement Evaluated by orthopedics today Bradycardic overnight, asymptomatic No new complaints Left hip pain is better Denies any chest pain, SOB, dizziness, nausea, abdominal pain, hematuria Review of Systems Review of Systems: All systems reviewed & are unremarkable except as noted in HPI & below Physical Exam Physical Exam: Physical Exam: Vitals signs as noted above General Appearance:Obese, no apparent distress Head: normocephalic, Atraumatic Eyes: normal inspection, EOMI Neck: supple, Trachea midline Respiratory/Chest: Normal breath sounds, CTA Cardiovascular: Irregularly Irregular, + murmur Abdomen/GI:Soft, Non tender, Bowel sounds present Extremities/Musculoskelatal:normal inspection, 1+ B/L leg edema Neurologic/Psych:AAOX3, grossly no focal neurological deficits Skin: normal color, warm Results & Data Results & Data ([facility]) Vital Signs (Past 12 Hours) Vital Signs Temp Pulse Pulse Resp BP Pulse Ox 04/23/20 14:56 37.1 C 70 18 114/72 97 04/23/20 11:54 37.1 C 68 18 110/69 96 04/23/20 09:38 55 L 102/65 04/23/20 08:33 58 L 04/23/20 08:04 37.0 C 58 L 18 93/59 L 93 Laboratory Results [facility] 04/23/20 06:53 Sodium 136 Potassium 4.3 Chloride 105 Carbon Dioxide 27 BUN 21 H Creatinine 0.91 Glucose 93 Calcium 8.9 (1) UTI (urinary tract infection) Hematuria presence: without hematuria Urinary tract infection type: site unspecified Qualified Code(s): N39.0 - Urinary tract infection, site not specified
[2020-04-23] MEDS: cefTRIAXone SODIUM 2,000 MG in DEXTROSE 5% 50 ML IV SCH (17:25)
[2020-04-23] MEDS ORDERED: POLYETHYLENE (MIRALAX) 17 GM PACK PO ONE (20:00)
[2020-04-23] MEDS: GABAPENTIN 300 MG CAP PO SCH (20:29)
[2020-04-24] MEDS: LEVOTHYROXINE SODIUM 25 MCG TABLET PO SCH (05:27)
[2020-04-24] MEDS: APIXABAN 5 MG TABLET PO SCH ×2 (09:16→20:21)
[2020-04-24] MEDS: METOPROLOL SUCC 50MG EXT REL TAB PO SCH ×2 (09:16→20:22)
[2020-04-24] MEDS: CLOPIDOGREL BISULFATE 75 MG TAB PO SCH (09:16)
[2020-04-24] MEDS: MONTELUKAST SODIUM 10 MG TABLET PO SCH (09:17)
[2020-04-24] MEDS: NYSTATIN POWDER 15GM BTL EXT SCH ×2 (09:17→20:20)
[2020-04-24] MEDS: POTASSIUM CHLORIDE 10 MEQ TABCR PO SCH (09:17)
[2020-04-24] MEDS: dilTIAZem HCL 240 MG CAPCR PO SCH (09:18)
[2020-04-24] MEDS: FUROSEMIDE 20 MG TAB PO SCH (09:18)
[2020-04-24] MEDS: SERTRALINE HCL 50 MG TABLET PO SCH (09:18)
[2020-04-24] MEDS: SPIRONOLACTONE 25 MG TAB PO SCH (09:18)
[2020-04-24] MEDS: OXYCODONE/ACETAMINOPHEN 5mg/325mg TAB PO PRN ×3 (09:21→23:24)
[2020-04-24] MEDS ORDERED: LORazepam 0.5 MG TAB PO ONE (11:54)
--- NOTE | 2020-04-24 16:37 | Magnetic Resonance Report ---
MR lumbar spine wo con CLINICAL HISTORY: 75 years-old Female with back and leg pain. Chronic low back pain with radiation i nto the lower extremities. History of prior lumbar spine fusion. Lower extremity weakness. COMPARISON: MRI lumbar spine November 07, 2018 TECHNIQUE: Multiplanar, multi sequence MRI of the lumbar spine was performed without intravenous cont rast. FINDINGS: The community engagement manager localizer images demonstrate T2 hyperintense foci of the bilateral kidneys measuring up to 6.9 cm within the inferior pole right kidney suggestive of probable renal cysts, however not fully ch aracterized on this exam. The spleen appears mildly enlarged. Lumbar levoscoliosis, apex at L1-L2. Po sterior interbody estephanie and screw fusion extends from L2-S1. Multilocular fluid collection is noted wit hin the laminectomy bed at L4-L5 measuring 3.3 x 1.0 cm (image 10 series 8) which appears generally s table from the prior exam. Again, this is suggestive of a probable seroma and demonstrates no signifi cant compression of the central canal. No acute fracture, subluxation or significant bone marrow diana a. T12-L1: Mild intervertebral disc space narrowing with mild spondylitic spurring and small circumfere ntial annular disc bulge. Moderate facet arthrosis. There is apparent mild central canal stenosis wit h mild right foraminal narrowing as seen on the sagittal images. The left neuroforamen appears patent . No significant change from comparison. L1-L2: Moderate to severe disc space narrowing with moderate spondylitic spurring and small circumfe rential annular disc bulge. Ligamentum flavum thickening with severe facet arthrosis. Flattening of t he ventral thecal sac. No significant central canal stenosis. There is mild narrowing of the right la teral recess. Moderate right foraminal narrowing has not significantly changed. The left neuroforamen is patent. L2-L3: Moderate disc space narrowing and spondylitic spurring with small posterior disc osteophyte c omplex. Ligamentum flavum thickening with advanced facet arthrosis. Flattening of the ventral thecal sac without significant central canal stenosis. Moderate narrowing of the right lateral recess. There is mild left and moderate right foraminal narrowing appears stable to slightly progressed from emely rison. L3-L4: Moderate disc space narrowing with mild spondylitic spurring. No central canal or left forami nal narrowing. There is at least mild right foraminal stenosis which appears unchanged. L4-L5: Mild to moderate disc space narrowing with mild spondylitic spurring. No central canal or sig nificant foraminal narrowing, unchanged. L5-S1: Mild spondylitic spurring with small posterior annular disc bulge. Central canal appears soler nt. Mild right foraminal narrowing. Evaluation of the left neuroforamen is limited secondary to artif act. There is suggestion of at least mild left foraminal narrowing which appears unchanged. IMPRESSION: 1. No acute fracture, subluxation or bone marrow edema. 2. Posterior interbody estephanie and screw fusion redemonstrated at L2-S1. 3. Multilevel foraminal narrowing is redemonstrated as detailed above which has not significantly tracy nged from the November 07, 2018 exam. 4. No significant central canal stenosis. ACT 112: Negative or not required by law. The above report was generated using voice recognition software. It may contain grammatical, syntax o r spelling errors. Electronically signed by: Luiz Wiseman M.D. 04/24/2020 4:36 PM
--- NOTE | 2020-04-24 16:46 | Hospitalist Progress Note ---
Date of Service April 24, 2020 Assessment & Plan (1) UTI (urinary tract infection): UTI Urine culture: Klebsiella pneumonia Leukocytosis normalized Received IV fluids Continue Rocephin currently asymptomatic Back Pain: Left Hip Pain H/O Sciatica --Thoracolumbar spine x-ray:The lateral projection confirms multilevel considerable degenerative disc changes throughout. The metallic hardware previously described appears to be intact. No evidence for subluxation. --Hip X ray:Severe osteoarthritis within the bilateral hips with [id number]-iv-uaqs articulation. Possible avascular necrosis within the bilateral femoral heads. No acute fracture or dislocation within the pelvis or hips. --CT L hip:Severe osteoarthritis of the left hip. No acute fracture. Several subchondral lucencies within the superior aspect of the left femoral head. These could indicate sequela of severe osteoarthritis or underlying avascular necrosis with collapse. --CT R hip:Severe osteoarthritis of the right hip. 1.8 cm subchondral mixed lucent and sclerotic focus within the superior aspect of the right femoral head. This could be secondary to osteoarthritis or reflect underlying avascular necrosis. --MRI lumbar Spine:No acute fracture, subluxation or bone marrow edema. Posterior interbody estephanie and screw fusion redemonstrated at L2-S1. Multilevel foraminal narrowing is redemonstrated as detailed above which has not significantly changed from the November 07, 2018 exam. No significant central canal stenosis. Appreciate Orthopedics Input Pain control Continue PT/OT Needs to be evaluated by hip surgeon inpatient Vs outpatient outpatient Complains of leg cramps today Mild rhabdomyolysis Likely secondary to fall Received IV fluids Resolved Meningioma CT Head: No acute intracranial abnormality. A 2 cm extra-axial mass within the left high convexity. This favors a meningioma. Incidental finding on CT scan Follow up as outpatient Atrial Fibrillation Bradycardia resolved Discussed with on 04/23/20 Continue Metoprolol 50mg BID Cardizem dose decreased to 240mg daily On Digoxin M// On Eliquis for anticoagulation monitor (2) KALEE (acute kidney injury): On diuretics-- spironolactone and Lasix for diastolic heart failure Dehydrated on admission Received IV fluids Monitor volume status Cr levels normalized Monitor renal function KALEE resolved (3) Mood disorder: H/O Mood disorder with anxiety Continue Zoloft (4) Chronic diastolic heart failure: Resume Lasix, spironolactone Monitor volume status Hypothyroidism continue levothyroxine (5) Asthma: Stable DVT Px: Evan Admission and Anticipated Discharge Date Admission Date: April 19, 2020 Subjective Patient is seen and examined at bedside Back pain, hip pain is better today Reports bilateral leg cramps No other complaints Denies any chest pain, SOB, dizziness, nausea, abdominal pain, hematuria Review of Systems Review of Systems: All systems reviewed & are unremarkable except as noted in HPI & below Physical Exam Physical Exam: Physical Exam: Vitals signs as noted above General Appearance:Obese, no apparent distress Head: normocephalic, Atraumatic Eyes: normal inspection, EOMI Neck: supple, Trachea midline Respiratory/Chest: Normal breath sounds, CTA Cardiovascular: Irregularly Irregular, + murmur Abdomen/GI:Soft, Non tender, Bowel sounds present Extremities/Musculoskelatal:normal inspection, 1+ B/L leg edema Neurologic/Psych:AAOX3, grossly no focal neurological deficits Skin: normal color, warm Results & Data Results & Data ([facility]) Vital Signs (Past 12 Hours) Vital Signs Temp Pulse Resp BP Pulse Ox 04/24/20 15:29 36.7 C 68 18 110/64 97 04/24/20 11:22 36.7 C 94 H 20 110/71 95 04/24/20 07:52 37.1 C 64 20 100/62 95 (1) UTI (urinary tract infection) Hematuria presence: without hematuria Urinary tract infection type: site unspecified Qualified Code(s): N39.0 - Urinary tract infection, site not specified
[2020-04-24] MEDS: cefTRIAXone SODIUM 2,000 MG in DEXTROSE 5% 50 ML IV SCH (17:03)
[2020-04-24] MEDS: GABAPENTIN 300 MG CAP PO SCH (20:21)
[2020-04-25] MEDS: LEVOTHYROXINE SODIUM 25 MCG TABLET PO SCH (05:36)
[2020-04-25] MEDS: NYSTATIN POWDER 15GM BTL EXT SCH ×2 (08:08→20:51)
[2020-04-25] MEDS: OXYCODONE/ACETAMINOPHEN 5mg/325mg TAB PO PRN ×2 (08:08→15:46)
[2020-04-25] MEDS: SPIRONOLACTONE 25 MG TAB PO SCH (08:09)
[2020-04-25] MEDS: POTASSIUM CHLORIDE 10 MEQ TABCR PO SCH (08:09)
[2020-04-25] MEDS: APIXABAN 5 MG TABLET PO SCH ×2 (08:09→20:51)
[2020-04-25] MEDS: SERTRALINE HCL 50 MG TABLET PO SCH (08:09)
[2020-04-25] MEDS: METOPROLOL SUCC 50MG EXT REL TAB PO SCH ×2 (08:09→20:48)
[2020-04-25] MEDS: MONTELUKAST SODIUM 10 MG TABLET PO SCH (08:09)
[2020-04-25] MEDS: dilTIAZem HCL 240 MG CAPCR PO SCH (08:09)
[2020-04-25] MEDS: FUROSEMIDE 20 MG TAB PO SCH (08:09)
[2020-04-25] MEDS: CLOPIDOGREL BISULFATE 75 MG TAB PO SCH (08:09)
--- NOTE | 2020-04-25 11:22 | Orthopedic Progress Note ---
Date of Service April 25, 2020 Assessment & Plan (1) Bilateral primary osteoarthritis of hip: I did have discussion with this patient today reviewing her MRI findings of the lumbar spine. It is relatively benign. There is no gross neural compression it is unchanged from previous images. Suspect majority of her symptoms are in fact coming from her bilateral hip osteoarthritis. She does not currently have a orthopedic surgeon. I will have her see my partner who specializes in total hip arthroplasty. Present on Admission?: Yes Admission and Anticipated Discharge Date Admission Date: April 19, 2020 Subjective Patient complaining of bilateral leg pain with activity. Physical Exam Physical Exam: Patient is in chair at the bedside is neurologically intact. Results & Data ([facility]) Vital Signs (Past 12 Hours) Vital Signs Temp Pulse Pulse Resp BP Pulse Ox 04/25/20 07:26 36.7 C 61 20 114/72 96 04/25/20 07:00 77 04/25/20 03:00 36.5 C 76 19 110/72 92 04/24/20 23:32 36.8 C 81 19 109/68 95
--- NOTE | 2020-04-25 14:11 | Hospitalist Progress Note ---
Date of Service April 25, 2020 Assessment & Plan (1) UTI (urinary tract infection): UTI Urine culture: Klebsiella pneumonia Leukocytosis normalized Received IV fluids Received IV Rocephin currently asymptomatic Switch to p.o. antibiotics to complete the course Back Pain: Left Hip Pain H/O Sciatica --Thoracolumbar spine x-ray:The lateral projection confirms multilevel considerable degenerative disc changes throughout. The metallic hardware previously described appears to be intact. No evidence for subluxation. --Hip X ray:Severe osteoarthritis within the bilateral hips with [id number] articulation. Possible avascular necrosis within the bilateral femoral heads. No acute fracture or dislocation within the pelvis or hips. --CT L hip:Severe osteoarthritis of the left hip. No acute fracture. Several subchondral lucencies within the superior aspect of the left femoral head. These could indicate sequela of severe osteoarthritis or underlying avascular necrosis with collapse. --CT R hip:Severe osteoarthritis of the right hip. 1.8 cm subchondral mixed lucent and sclerotic focus within the superior aspect of the right femoral head. This could be secondary to osteoarthritis or reflect underlying avascular necrosis. --MRI lumbar Spine:No acute fracture, subluxation or bone marrow edema. Posterior interbody estephanie and screw fusion redemonstrated at L2-S1. Multilevel foraminal narrowing is redemonstrated as detailed above which has not significantly changed from the November 07, 2018 exam. No significant central canal stenosis. Appreciate 's Input Pain control Continue PT/OT Needs acute rehab placement No plan for any back surgery Await for orthopedics input Mild rhabdomyolysis Likely secondary to fall Received IV fluids Resolved Meningioma CT Head: No acute intracranial abnormality. A 2 cm extra-axial mass within the left high convexity. This favors a meningioma. Incidental finding on CT scan Follow up as outpatient Atrial Fibrillation Bradycardia resolved Discussed with on 04/23/20 Continue Metoprolol 50mg BID Cardizem dose decreased to 240mg daily On Digoxin // On Eliquis for anticoagulation monitor (2) KALEE (acute kidney injury): On diuretics-- spironolactone and Lasix for diastolic heart failure Dehydrated on admission Received IV fluids Monitor volume status Cr levels normalized Monitor renal function KALEE resolved (3) Mood disorder: H/O Mood disorder with anxiety Continue Zoloft (4) Chronic diastolic heart failure: Resume Lasix, spironolactone Monitor volume status Hypothyroidism continue levothyroxine (5) Asthma: Stable DVT Px: Evan Admission and Anticipated Discharge Date Admission Date: April 19, 2020 Subjective Patient is seen and examined at bedside Complains of bilateral leg pain today Improved back pain, hip pain No other complaints Denies any leg cramps today Denies any chest pain, SOB, dizziness, nausea, abdominal pain Review of Systems Review of Systems: All systems reviewed & are unremarkable except as noted in HPI & below Physical Exam Physical Exam: Physical Exam: Vitals signs as noted above General Appearance:Obese, no apparent distress Head: normocephalic, Atraumatic Eyes: normal inspection, EOMI Neck: supple, Trachea midline Respiratory/Chest: Normal breath sounds, CTA Cardiovascular: Irregularly Irregular, + murmur Abdomen/GI:Soft, Non tender, Bowel sounds present Extremities/Musculoskelatal:normal inspection, 1+ B/L leg edema Neurologic/Psych:AAOX3, grossly no focal neurological deficits Skin: normal color, warm Results & Data Results & Data ([facility]) Vital Signs (Past 12 Hours) Vital Signs Temp Pulse Pulse Resp BP Pulse Ox 04/25/20 11:00 36.7 C 90 20 110/73 96 04/25/20 07:26 36.7 C 61 20 114/72 96 04/25/20 07:00 77 04/25/20 03:00 36.5 C 76 19 110/72 92 (1) UTI (urinary tract infection) Hematuria presence: without hematuria Urinary tract infection type: site unspecified Qualified Code(s): N39.0 - Urinary tract infection, site not specified
[2020-04-25] MEDS: DIGOXIN 0.125 MG TAB PO SCH (15:46)
[2020-04-25] MEDS: CEFDINIR 300 MG CAP PO SCH ×2 (15:46→20:50)
--- NOTE | 2020-04-25 17:35 | Orthopedic Consultation ---
Date of Consultation April 25, 2020 Assessment & Plan (1) Bilateral primary osteoarthritis of hip: Severe bilateral hip AVN/DJD. I discussed with the patient conservative versus surgical treatment options. Unfortunately patient is unable to take NSAIDs secondary to being on blood thinner for atrial fibrillation. Recommended against intra-articular corticosteroid injection secondary to underlying avascular necrosis and the severity of her underlying degenerative joint disease. Recommend protected weightbearing, ambulating with walker and may participate in physical and occupational therapy as she tolerates. We discussed at length surgical treatment options including total hip replacement surgery. This is nonurgent and I would recommend follow-up in the outpatient setting once medically stabilized. She may call the office at [phone] to schedule follow-up appointment with Dr. Palmer. Patient but was agreeable to plan and all questions were answered to satisfaction. Thank you for the consultation. History of Present Illness Reason for Consultation: Bilateral hip pain and DJD/AVN Attending Physician: Grady Griffiths MD History of Present Illness The patient is a 75-year-old female admitted to [facility] secondary to UTI and KALEE who complains of chronic atraumatic bilateral hip pain, left greater than right. Reports she has tried NSAIDs in the past however she does take a blood thinner, space clopidogrel for atrial fibrillation. She does not see an orthopedic surgeon for this problem. Denies any previous surgery. Denies F/C/N/V/SOB/CP. Allergies Allergy/AdvReac Type Severity Reaction Status Date / Time adhesive Allergy Unknown HEAVIER Verified 04/19/20 15:33 SURG TAPE-REDNESS SORE SKIN cat dander Allergy Unknown ITCHY Verified 04/19/20 15:33 NOSE, ITCHY EYES,RUNNY NOSE grass pollen-perennial rye, Allergy Unknown GRASS,MOLD-ITCHY Verified 04/19/20 15:33 standar EYES RUNNY NOSE latex Allergy Unknown CONTACT Verified 04/19/20 15:33 DERMATITIS tetanus toxoid, adsorbed Allergy Unknown SWELLING Verified 04/19/20 15:33 AT SITE KOLE Inhibitors AdvReac Unknown COUGH Unverified 04/19/20 15:33 Home Medications Home Medications Medication Instructions Recorded Confirmed Type buspirone 10 mg PO BID 01/24/19 04/19/20 History montelukast 10 mg PO DAILY 01/24/19 04/19/20 History gabapentin 300 mg PO HS 07/03/19 04/19/20 History apixaban 5 mg tablet 5 mg PO BID 08/19/19 04/19/20 History levothyroxine 25 mcg PO QAM 08/27/19 04/19/20 History atorvastatin 40 mg PO QAM #30 tab 09/02/19 04/19/20 Rx clopidogrel 75 mg PO QAM #30 tab 09/02/19 04/19/20 Rx diltiazem HCl [Cardizem CD] 300 mg PO DAILY 09/02/19 04/19/20 History furosemide 20 mg PO QAM #30 tab 09/02/19 04/19/20 Rx nitroglycerin [Nitrostat] 0.4 mg SUBLINGUAL Q5M PRN #25 tab 09/02/19 04/19/20 Rx digoxin 125 mcg PO 3XWK 04/19/20 04/19/20 History losartan 25 mg PO DAILY 04/19/20 04/19/20 History metoprolol succinate 50 mg PO BID 04/19/20 04/19/20 History potassium chloride 10 meq PO DAILY 04/19/20 04/19/20 History sertraline 25 mg PO DAILY 04/19/20 04/19/20 History spironolactone 25 mg PO DAILY 04/19/20 04/19/20 History Patient History Medical History Arthritis (Chronic) Asthma (Chronic) Atrial fibrillation Chronic diastolic heart failure (Chronic) Coronary artery disease 08/31/19 thrombus RCA, PCI with JAILENE Depression (Chronic) Dyslipidemia History of DVT (deep vein thrombosis) Hypertension Mood disorder (Chronic) Prediabetes (Chronic) Scoliosis (Chronic) Surgical History H/O: hysterectomy (Chronic) History of mastectomy (Chronic) Status post coronary artery stent placement 08/31/19 thrombus RCA, PCI with JAILENE Family History Other Heart disease Social History Preferred Language: Romansh Communication Ability: Effective Pourer Off Required: No Beliefs That Will Affect Care: None Current Living Situation: Family Current Living Situation Comment: w/ son Feels Safe at Home: Yes Smoking Status: Never smoker Second Hand Exposure: No ; Hx Alcohol Use: Yes Alcohol type: wine Hx Substance Use: No Review of Systems Review of Systems: All systems reviewed & are unremarkable except as noted in HPI & below Constitutional: as per Subjective / HPI Physical Exam Physical Exam: Bilateral lower extremities are neurovascular and sensory intact grossly, limited painful range of motion bilateral hips, antalgic gait, compartment soft nontender. Constitutional: WD/WN, vitals as above Results & Data ([facility]) Vital Signs (Past 12 Hours) Vital Signs Temp Pulse Pulse Resp BP Pulse Ox 04/25/20 16:03 37.2 C 74 20 112/75 95 04/25/20 15:46 73 04/25/20 14:59 67 04/25/20 11:00 36.7 C 90 20 110/73 96 04/25/20 07:26 36.7 C 61 20 114/72 96 04/25/20 07:00 77 Diagnostic Findings XR hip LT 2V w pelvis CLINICAL HISTORY: left hip pain COMPARISON STUDY: None. FINDINGS: Posterior decompression fusion within the visualized lumbar spine. Multiple suture coils seen within the pelvis. No acute fracture or dislocation within the pelvis or hips. Soft tissues are unremarkable. Moderate well-formed stool within the colon and rectum. Severe cartilage space narrowing with subchondral sclerosis and subchondral cystic change within the bilateral hips. There is [id number] articulation. This is consistent with osteoarthritis. Possible lucency within the left superior femoral head and sclerosis within the right superior femoral head. There may be slight collapse of the femoral heads. This could be due to long-standing degenerative change or superimposed avascular necrosis. IMPRESSION: 1. Severe osteoarthritis within the bilateral hips with [id number] articulation. Possible avascular necrosis within the bilateral femoral heads. 2. No acute fracture or dislocation within the pelvis or hips. CT OF THE LEFT HIP WITHOUT CONTRAST CLINICAL HISTORY: avascular necrosis femoral head COMPARISON STUDY: Pelvis and left hip radiographs April 22, 2020. TECHNIQUE: Axial images of the left hip were obtained without IV contrast. Sagittal and coronal reconstructions were viewed. Automated exposure control was utilized for the study. A dose lowering technique was utilized adhering to the principles of ALARA. FINDINGS: Note is made of complete loss of the left hip joint space. There is extensive osteophytosis, sclerosis and subchondral cystic change within the left acetabulum and femoral head. No acute fracture is noted. There is no suspicious osseous lesion. There is a small left joint effusion. Note is made of several subchondral lucencies within the superior aspect of the left femoral head. This could indicate avascular necrosis with collapse or sequela of severe osteoarthritis. There is no left inguinal lymphadenopathy. Previous ventral hernia repair with mesh is partially imaged. Bladder is distended. IMPRESSION: 1. Severe osteoarthritis of the left hip. 2. No acute fracture. 3. Several subchondral lucencies within the superior aspect of the left femoral head. These could indicate sequela of severe osteoarthritis or underlying avascular necrosis with collapse. CT OF THE RIGHT HIP WITHOUT CONTRAST CLINICAL HISTORY: avascular necrosis femoral head COMPARISON STUDY: Pelvis radiograph April 22, 2020. TECHNIQUE: Axial images of the right hip were obtained without IV contrast. Sagittal and coronal reconstructions were viewed. Automated exposure control was utilized for the study. A dose lowering technique was utilized adhering to the principles of ALARA. FINDINGS: Complete loss of the superior right hip joint space is noted. There is extensive osteophyte ptosis, subchondral sclerosis and subchondral cystic change. Note is made of a 1.8 cm subchondral mixed lucent and sclerotic focus within the superior aspect of the right femoral head. No acute fracture is noted. There are no suspicious osseous lesions. Small right hip joint effusion is present. The CT of the left hip will be reported separately. IMPRESSION: 1. Severe osteoarthritis of the right hip. 2. 1.8 cm subchondral mixed lucent and sclerotic focus within the superior aspect of the right femoral head. This could be secondary to osteoarthritis or reflect underlying avascular necrosis.
[2020-04-25] MEDS: GABAPENTIN 300 MG CAP PO SCH (20:50)
[2020-04-26] MEDS ORDERED: ACETAMINOPHEN 325 MG TAB PO PRN (00:10)
[2020-04-26] MEDS: LIDOCAINE 5% 1 PATCH TD SCH (02:10)
[2020-04-26] MEDS: TRAMADOL HCL 50 MG TABLET PO PRN (02:20)
[2020-04-26] MEDS: LEVOTHYROXINE SODIUM 25 MCG TABLET PO SCH (05:18)
[2020-04-26] MEDS: CLOPIDOGREL BISULFATE 75 MG TAB PO SCH (07:59)
[2020-04-26] MEDS: APIXABAN 5 MG TABLET PO SCH ×2 (07:59→20:39)
[2020-04-26] MEDS: SPIRONOLACTONE 25 MG TAB PO SCH (07:59)
[2020-04-26] MEDS: METOPROLOL SUCC 50MG EXT REL TAB PO SCH ×2 (07:59→20:40)
[2020-04-26] MEDS: FUROSEMIDE 20 MG TAB PO SCH (07:59)
[2020-04-26] MEDS: POTASSIUM CHLORIDE 10 MEQ TABCR PO SCH (07:59)
[2020-04-26] MEDS: MONTELUKAST SODIUM 10 MG TABLET PO SCH (07:59)
[2020-04-26] MEDS: NYSTATIN POWDER 15GM BTL EXT SCH ×2 (08:00→20:41)
[2020-04-26] MEDS: SERTRALINE HCL 50 MG TABLET PO SCH (08:00)
[2020-04-26] MEDS: OXYCODONE/ACETAMINOPHEN 5mg/325mg TAB PO PRN ×2 (08:00→15:34)
[2020-04-26] MEDS: dilTIAZem HCL 240 MG CAPCR PO SCH (08:39)
[2020-04-26] MEDS: CEFDINIR 300 MG CAP PO SCH ×2 (08:39→20:40)
--- NOTE | 2020-04-26 14:30 | Hospitalist Progress Note ---
Date of Service April 26, 2020 Assessment & Plan (1) UTI (urinary tract infection): UTI Urine culture: Klebsiella pneumonia Leukocytosis normalized Received IV fluids Received IV Rocephin To complete antibiotic course today Back Pain: Severe Avascular Necrosis/ DJD bilateral Hip H/O Sciatica --Thoracolumbar spine x-ray:The lateral projection confirms multilevel considerable degenerative disc changes throughout. The metallic hardware previously described appears to be intact. No evidence for subluxation. --Hip X ray:Severe osteoarthritis within the bilateral hips with [id number] articulation. Possible avascular necrosis within the bilateral femoral heads. No acute fracture or dislocation within the pelvis or hips. --CT L hip:Severe osteoarthritis of the left hip. No acute fracture. Several subchondral lucencies within the superior aspect of the left femoral head. These could indicate sequela of severe osteoarthritis or underlying avascular necrosis with collapse. --CT R hip:Severe osteoarthritis of the right hip. 1.8 cm subchondral mixed lucent and sclerotic focus within the superior aspect of the right femoral head. This could be secondary to osteoarthritis or reflect underlying avascular necrosis. --MRI lumbar Spine:No acute fracture, subluxation or bone marrow edema. Posterior interbody estephanie and screw fusion redemonstrated at L2-S1. Multilevel foraminal narrowing is redemonstrated as detailed above which has not significantly changed from the November 07, 2018 exam. No significant central canal stenosis. Appreciate 's Input Pain control Continue PT/OT Needs acute rehab placement No plan for any back surgery Appreciate Orthopedics input Needs nonurgent total hip replacement Patient o call [phone] to schedule follow-up appointment with Dr. Palmer. Mild rhabdomyolysis Likely secondary to fall Received IV fluids Resolved Meningioma CT Head: No acute intracranial abnormality. A 2 cm extra-axial mass within the left high convexity. This favors a meningioma. Incidental finding on CT scan Follow up as outpatient Atrial Fibrillation Bradycardia resolved Discussed with on 04/23/20 Continue Metoprolol 50mg BID Cardizem dose decreased to 240mg daily On Digoxin // On Eliquis for anticoagulation monitor HTN BP low Losartan Held Monitor BP meds adjust meds as needed (2) KALEE (acute kidney injury): On diuretics-- spironolactone and Lasix for diastolic heart failure Dehydrated on admission Received IV fluids Monitor volume status Cr levels normalized Monitor renal function KALEE resolved (3) Mood disorder: H/O Mood disorder with anxiety Continue Zoloft (4) Chronic diastolic heart failure: Resume Lasix, spironolactone Monitor volume status Hypothyroidism continue levothyroxine (5) Asthma: Stable DVT Px: Debbyquis Admission and Anticipated Discharge Date Admission Date: April 19, 2020 Subjective Patient is seen and examined at bedside Reports B/L hip pain today No other complaints Back pain improved Denies any chest pain, SOB, dizziness, nausea, abdominal pain Needs Rehab placement Review of Systems Review of Systems: All systems reviewed & are unremarkable except as noted in HPI & below Physical Exam Physical Exam: Physical Exam: Vitals signs as noted above General Appearance:Obese, no apparent distress Head: normocephalic, Atraumatic Eyes: normal inspection, EOMI Neck: supple, Trachea midline Respiratory/Chest: Normal breath sounds, CTA Cardiovascular: Irregularly Irregular, + murmur Abdomen/GI:Soft, Non tender, Bowel sounds present Extremities/Musculoskelatal:normal inspection, 1+ B/L leg edema Neurologic/Psych:AAOX3, grossly no focal neurological deficits Skin: normal color, warm Results & Data Results & Data ([facility]) Vital Signs (Past 12 Hours) Vital Signs Temp Pulse Pulse Resp BP BP Pulse Ox 04/26/20 11:49 36.4 C L 65 18 84/54 L 97 04/26/20 09:50 62 04/26/20 08:09 37.0 C 64 20 106/65 95 04/26/20 03:52 37.2 C 56 L 22 107/71 96 (1) UTI (urinary tract infection) Hematuria presence: without hematuria Urinary tract infection type: site unspecified Qualified Code(s): N39.0 - Urinary tract infection, site not specified
[2020-04-26] MEDS: GABAPENTIN 300 MG CAP PO SCH (20:40)
[2020-04-27] MEDS: TRAMADOL HCL 50 MG TABLET PO PRN ×3 (03:45→23:26)
[2020-04-27] MEDS: LEVOTHYROXINE SODIUM 25 MCG TABLET PO SCH (05:22)
[2020-04-27 06:24] LABS: Hematocrit (blood only) 34.9 % (37-47); Hemoglobin 11.1 g/dL (12.0-16.0); Mean Corpuscular Hemoglobin 27.8 pg (25-34); Mean Corpuscular Hgb Conc 31.8 g/dL (32-36); Mean Corpuscular Volume 87.5 fL (80-100); Mean Platelet Volume 10.3 fL (7.4-10.4); Platelet Count 349 K/uL (130-400); RDW Coefficient of Variation 15.1 % (11.5-14.5); RDW Standard Deviation 49.1 fL (36.4-46.3); Red Blood Count 3.99 M/uL (4.2-5.4); White Blood Count 10.36 K/uL (4.8-10.8)
[2020-04-27 06:40] LABS: BUN Creatinine Ratio 25.8 (10-20); Creatinine Clr Calc Pharmacy 59.9 ml/min; Est GFR (African American) 77.1; Est GFR (Non-African American) 66.6; Potassium 4.6 mmol/L (3.5-5.1)
[2020-04-27] MEDS: SPIRONOLACTONE 25 MG TAB PO SCH (08:11)
[2020-04-27] MEDS: CLOPIDOGREL BISULFATE 75 MG TAB PO SCH (08:11)
[2020-04-27] MEDS: APIXABAN 5 MG TABLET PO SCH ×2 (08:11→21:38)
[2020-04-27] MEDS: dilTIAZem HCL 240 MG CAPCR PO SCH (08:11)
[2020-04-27] MEDS: SERTRALINE HCL 50 MG TABLET PO SCH (08:11)
[2020-04-27] MEDS: POTASSIUM CHLORIDE 10 MEQ TABCR PO SCH (08:11)
[2020-04-27] MEDS: MONTELUKAST SODIUM 10 MG TABLET PO SCH (08:11)
[2020-04-27] MEDS: METOPROLOL SUCC 50MG EXT REL TAB PO SCH ×2 (08:11→21:39)
[2020-04-27] MEDS: FUROSEMIDE 20 MG TAB PO SCH (08:12)
[2020-04-27] MEDS: LIDOCAINE 5% 1 PATCH TD SCH (08:12)
[2020-04-27] MEDS: NYSTATIN POWDER 15GM BTL EXT SCH ×2 (08:12→21:38)
--- NOTE | 2020-04-27 15:17 | Hospitalist Progress Note ---
Date of Service April 27, 2020 Assessment & Plan (1) UTI (urinary tract infection): UTI Urine culture: Klebsiella pneumonia Leukocytosis normalized Received IV fluids Received IV Rocephin Antibiotic course this is finished and the patient does not have any urinary symptoms Back Pain: Severe Avascular Necrosis/ DJD bilateral Hip H/O Sciatica --. No evidence for subluxation. --Hip X ray:Severe osteoarthritis within the bilateral hips with [id number] articulation. Possible avascular necrosis within the bilateral femoral heads. No acute fracture or dislocation within the pelvis or hips. --CT L hip:Severe osteoarthritis of the left hip. No acute fracture. Several subchondral lucencies within the superior aspect of the left femoral head. These could indicate sequela of severe osteoarthritis or underlying avascular necrosis with collapse. --CT R hip:Severe osteoarthritis of the right hip. 1.8 cm subchondral mixed lucent and sclerotic focus within the superior aspect of the right femoral head. This could be secondary to osteoarthritis or reflect underlying avascular necrosis. -Appreciate Orthopedics input Needs nonurgent total hip replacement Patient o call [phone] to schedule follow-up appointment with Dr. Palmer. History of back surgery, now with ongoing back pain Thoracolumbar spine x-ray:The lateral projection confirms multilevel considerable degenerative disc changes throughout. The metallic hardware previously described appears to be intact MRI lumbar Spine:No acute fracture, subluxation or bone marrow edema. Posterior interbody estephanie and screw fusion redemonstrated at L2-S1. Multilevel foraminal narrowing is redemonstrated as detailed above which has not significantly changed from the November 07, 2018 exam. No significant central canal stenosis. Appreciate Dr. Potts's input and recommendation Continue PT/OT Needs acute rehab placement No plan for any back surgery Mild rhabdomyolysis Likely secondary to fall Received IV fluids Resolved Meningioma CT Head: No acute intracranial abnormality. A 2 cm extra-axial mass within the left high convexity. This favors a meningioma. Incidental finding on CT scan Follow up as outpatient Atrial Fibrillation Bradycardia resolved Discussed with on 04/23/20 Continue Metoprolol 50mg BID Cardizem dose decreased to 240mg daily On Digoxin M//F On Eliquis for anticoagulation monitor HTN BP low Losartan Held Monitor BP meds adjust meds as needed (2) KALEE (acute kidney injury): On diuretics-- spironolactone and Lasix for diastolic heart failure Dehydrated on admission Received IV fluids Monitor volume status Cr levels normalized Monitor renal function KALEE resolved (3) Mood disorder: H/O Mood disorder with anxiety Continue Zoloft (4) Chronic diastolic heart failure: Resume Lasix, spironolactone Monitor volume status Hypothyroidism continue levothyroxine (5) Asthma: Stable DVT Px: Evan Admission and Anticipated Discharge Date Admission Date: April 19, 2020 Subjective The patient was seen and examined in medical floor She has been complaining of pain in the hip mostly on the left side She denies any chest pain and/or palpitation, no abdominal pain nausea no vomiting, no fever and/or chills Awaiting results of coffee test before discharging from the hospital Review of Systems Review of Systems: All systems reviewed and are unremarkable except as noted below Musculoskeletal: + back pain Bilateral hip pain Physical Exam Physical Exam: Sitting on a chair without any acute distress Constitutional: well developed, well nourished and + obese; no acute distress Eyes: PERRL, conjunctivae normal, anicteric sclerae Neck: trachea midline, no thyromegaly Respiratory: normal respiratory effort; no respiratory distress Auscultation: lungs clear to auscultation bilaterally Cardiovascular: Rate/Rhythm: + irregularly irregular Heart Sounds: + murmur Extremities: + edema (Bilateral leg edema, chronic, and may have component of lymphedema) Gastrointestinal (Abdomen): Inspection/Auscultation: abdomen normal to inspection and normal bowel sounds; abdomen not distended Percussion/Palpation: abdomen soft; abdomen nontender (Minimally tender in the hypogastrium) Musculoskeletal: Pain with movement of the hip joints bilaterally Neurologic: moves all extremities; no focal motor deficits Psychiatric: Orientation: alert and oriented x 3 Mood: + depressed mood Results & Data Results & Data ([facility]) Vital Signs (Past 12 Hours) Vital Signs Temp Pulse Pulse Resp BP Pulse Ox 04/27/20 12:00 36.7 C 76 18 114/71 97 04/27/20 08:00 36.9 C 63 18 99/63 L 94 04/27/20 07:39 77 04/27/20 05:02 60 Laboratory Results Short CBC 04/27/20 Range/Units 05:50 WBC 10.36 (4.8-10.8) K/uL Hgb 11.1 L (12.0-16.0) g/dL Hct 34.9 L (37-47) % Plt Count 349 (130-400) K/uL BMP 04/27/20 05:50 Sodium 135 L Potassium 4.6 Chloride 104 Carbon Dioxide 26 BUN 22 H Creatinine 0.86 Glucose 90 Calcium 9.0 Medications Administered Current Inpatient Medications Acetaminophen (Tylenol) 650 mg PO Q6H PRN PRN Reason: Fever Stop: 05/26/20 00:09 Apixaban (Eliquis) 5 mg PO BID [facility] Stop: 05/19/20 23:08 Last Admin: 04/27/20 08:11 Dose: 5 mg Documented by: Buspirone HCl (Buspar) 10 mg PO BID [facility] Stop: 05/19/20 23:08 Last Admin: 04/27/20 08:11 Dose: 10 mg Documented by: Clopidogrel Bisulfate (Plavix) 75 mg PO QAM [facility] Stop: 05/20/20 08:59 Last Admin: 04/27/20 08:11 Dose: 75 mg Documented by: Digoxin (Lanoxin) 0.125 mg PO MoWeFr@1600 [facility] Stop: 05/20/20 15:59 Last Admin: 04/25/20 15:46 Dose: 0.125 mg Documented by: Diltiazem HCl (Cardizem Cd) 240 mg PO DAILY [facility] Stop: 05/23/20 09:29 Last Admin: 04/27/20 08:11 Dose: 240 mg Documented by: Furosemide (Lasix) 20 mg PO QAM [facility] Stop: 05/23/20 08:59 Last Admin: 04/27/20 08:12 Dose: 20 mg Documented by: Gabapentin (Neurontin) 300 mg PO HS [facility] Stop: 05/19/20 23:08 Last Admin: 04/26/20 20:40 Dose: 300 mg Documented by: Levothyroxine Sodium (Synthroid) 25 mcg PO DAILYBB [facility] Stop: 05/20/20 06:29 Last Admin: 04/27/20 05:22 Dose: 25 mcg Documented by: Lidocaine (Lidoderm 5%) 1 patch TD QAM [facility] Stop: 05/26/20 00:59 Last Admin: 04/27/20 08:12 Dose: 1 patch Documented by: Metoprolol Succinate (Toprol Xl) 50 mg PO BID [facility] Stop: 05/19/20 23:08 Last Admin: 04/27/20 08:11 Dose: 50 mg Documented by: Miscellaneous (Remove Lidoderm Patch) 1 ea N/A DAILY@2100 [facility] Stop: 05/26/20 12:59 Last Admin: 04/26/20 12:17 Dose: Not Given Documented by: Montelukast Sodium (Singulair) 10 mg PO DAILY [facility] Stop: 05/20/20 08:59 Last Admin: 04/27/20 08:11 Dose: 10 mg Documented by: Nitroglycerin (Nitrostat) 0.4 mg SL Q5M PRN PRN Reason: chest pain Stop: 05/19/20 23:08 Nystatin (Mycostatin) 1 appln EXT BID [facility] Stop: 05/20/20 01:34 Last Admin: 04/27/20 08:12 Dose: 1 appln Documented by: Oxycodone/Acetaminophen (Percocet 5mg/325mg) 1 tab PO Q6H PRN PRN Reason: Pain Stop: 05/06/20 15:29 Last Admin: 04/26/20 15:34 Dose: 1 tab Documented by: Polyethylene Glycol (Miralax Powder Packet) 17 gm PO DAILY PRN PRN Reason: Constipation Stop: 05/21/20 12:39 Last Admin: 04/23/20 07:59 Dose: 17 gm Documented by: Potassium Chloride (Klor-Con M10) 10 meq PO DAILY [facility] Stop: 05/20/20 08:59 Last Admin: 04/27/20 08:11 Dose: 10 meq Documented by: Sertraline HCl (Zoloft) 25 mg PO DAILY [facility] Stop: 05/20/20 08:59 Last Admin: 04/27/20 08:11 Dose: 25 mg Documented by: Spironolactone (Aldactone) 25 mg PO DAILY [facility] Stop: 05/23/20 08:59 Last Admin: 04/27/20 08:11 Dose: 25 mg Documented by: Tramadol HCl (Ultram) 25 - 50 mg PO Q4H PRN PRN Reason: Pain Stop: 05/26/20 00:09 Last Admin: 04/27/20 08:11 Dose: 50 mg Documented by: (1) UTI (urinary tract infection) Hematuria presence: without hematuria Urinary tract infection type: site unspecified Qualified Code(s): N39.0 - Urinary tract infection, site not specified
[2020-04-27] MEDS: DIGOXIN 0.125 MG TAB PO SCH (15:50)
[2020-04-27] MEDS: GABAPENTIN 300 MG CAP PO SCH (21:38)
[2020-04-28] MEDS: OXYCODONE/ACETAMINOPHEN 5mg/325mg TAB PO PRN (02:32)
[2020-04-28] MEDS: LEVOTHYROXINE SODIUM 25 MCG TABLET PO SCH (06:42)
[2020-04-28] MEDS: TRAMADOL HCL 50 MG TABLET PO PRN ×2 (06:42→15:38)
[2020-04-28] MEDS: FUROSEMIDE 20 MG TAB PO SCH (08:20)
[2020-04-28] MEDS: NYSTATIN POWDER 15GM BTL EXT SCH ×2 (08:20→20:18)
[2020-04-28] MEDS: dilTIAZem HCL 240 MG CAPCR PO SCH (08:20)
[2020-04-28] MEDS: SPIRONOLACTONE 25 MG TAB PO SCH (08:20)
[2020-04-28] MEDS: POTASSIUM CHLORIDE 10 MEQ TABCR PO SCH (08:20)
[2020-04-28] MEDS: CLOPIDOGREL BISULFATE 75 MG TAB PO SCH (08:20)
[2020-04-28] MEDS: APIXABAN 5 MG TABLET PO SCH ×2 (08:20→20:16)
[2020-04-28] MEDS: MONTELUKAST SODIUM 10 MG TABLET PO SCH (08:21)
[2020-04-28] MEDS: LIDOCAINE 5% 1 PATCH TD SCH (08:21)
[2020-04-28] MEDS: SERTRALINE HCL 50 MG TABLET PO SCH (08:21)
[2020-04-28] MEDS: METOPROLOL SUCC 50MG EXT REL TAB PO SCH ×2 (08:21→20:16)
--- NOTE | 2020-04-28 16:43 | Hospitalist Progress Note ---
Date of Service April 28, 2020 Assessment & Plan (1) UTI (urinary tract infection): UTI Urine culture: Klebsiella pneumonia Leukocytosis normalized Received IV fluids Received IV Rocephin Antibiotic course this is finished and the patient does not have any urinary symptoms Back Pain: Severe Avascular Necrosis/ DJD bilateral Hip H/O Sciatica --. No evidence for subluxation. --Hip X ray:Severe osteoarthritis within the bilateral hips with [id number] articulation. Possible avascular necrosis within the bilateral femoral heads. No acute fracture or dislocation within the pelvis or hips. --CT L hip:Severe osteoarthritis of the left hip. No acute fracture. Several subchondral lucencies within the superior aspect of the left femoral head. These could indicate sequela of severe osteoarthritis or underlying avascular necrosis with collapse. --CT R hip:Severe osteoarthritis of the right hip. 1.8 cm subchondral mixed lucent and sclerotic focus within the superior aspect of the right femoral head. This could be secondary to osteoarthritis or reflect underlying avascular necrosis. -Appreciate Orthopedics input Needs nonurgent total hip replacement Patient o call [phone] to schedule follow-up appointment with Dr. Palmer. Remains stable with minimal pain at rest History of back surgery, now with ongoing back pain Thoracolumbar spine x-ray:The lateral projection confirms multilevel considerable degenerative disc changes throughout. The metallic hardware previously described appears to be intact MRI lumbar Spine:No acute fracture, subluxation or bone marrow edema. Posterior interbody estephanie and screw fusion redemonstrated at L2-S1. Multilevel foraminal narrowing is redemonstrated as detailed above which has not significantly changed from the November 07, 2018 exam. No significant central canal stenosis. Appreciate Dr. Potts's input and recommendation Continue PT/OT Needs acute rehab placement No plan for any back surgery Mild rhabdomyolysis Likely secondary to fall Received IV fluids Resolved Meningioma CT Head: No acute intracranial abnormality. A 2 cm extra-axial mass within the left high convexity. This favors a meningioma. Incidental finding on CT scan Follow up as outpatient No neurological symptoms Atrial Fibrillation Bradycardia resolved Discussed with on 04/23/20 Continue Metoprolol 50mg BID Cardizem dose decreased to 240mg daily On Digoxin M// On Eliquis for anticoagulation monitor -rate remains controlled HTN BP low Losartan Held Monitor BP meds adjust meds as needed (2) KALEE (acute kidney injury): On diuretics-- spironolactone and Lasix for diastolic heart failure Dehydrated on admission Received IV fluids Monitor volume status Cr levels normalized Monitor renal function KALEE resolved (3) Mood disorder: H/O Mood disorder with anxiety Continue Zoloft (4) Chronic diastolic heart failure: Resume Lasix, spironolactone Monitor volume status Hypothyroidism continue levothyroxine (5) Asthma: Stable DVT Px: Eliquis Avoid deep COVID-19 test results before being transferred to rehab facility Admission and Anticipated Discharge Date Admission Date: April 19, 2020 Subjective The patient was seen and examined in medical floor She has been complaining of pain in the hip mostly on the left side She denies any chest pain and/or palpitation, no abdominal pain nausea no vomiting, no fever and/or chills Awaiting results of coffee test before discharging from the hospital 04/28/2020 The patient was seen and examined in medical floor She has been waiting for the cord be placed before she can be transferred to rehab facility Denies any significant symptoms except ongoing pain in the hips Review of Systems Review of Systems: All systems reviewed and are unremarkable except as noted below Musculoskeletal: + back pain Bilateral hip pain Physical Exam Physical Exam: Lying in bed comfortably Constitutional: well developed, well nourished and + obese; no acute distress Eyes: PERRL, conjunctivae normal, anicteric sclerae Neck: trachea midline, no thyromegaly Respiratory: normal respiratory effort; no respiratory distress Auscultation: lungs clear to auscultation bilaterally Cardiovascular: Rate/Rhythm: + irregularly irregular; + abnormal rate and + abnormal rhythm Heart Sounds: + murmur Extremities: + edema (Bilateral leg edema, chronic, and may have component of lymphedema) Gastrointestinal (Abdomen): Inspection/Auscultation: abdomen normal to inspection and normal bowel sounds; abdomen not distended Percussion/Palpation: abdomen soft; abdomen nontender (Minimally tender in the hypogastrium) Musculoskeletal: Bilateral hip pain on movement of the hips Neurologic: moves all extremities; no focal motor deficits Psychiatric: Orientation: alert and oriented x 3 Mood: + depressed mood Results & Data Results & Data ([facility]) Vital Signs (Past 12 Hours) Vital Signs Temp Pulse Pulse Resp BP BP Pulse Ox 04/28/20 16:00 72 04/28/20 14:37 37.0 C 67 18 100/65 94 04/28/20 11:00 36.6 C 90 18 110/72 98 04/28/20 09:11 62 04/28/20 07:00 36.6 C 58 L 18 114/72 97 Medications Administered Current Inpatient Medications Acetaminophen (Tylenol) 650 mg PO Q6H PRN PRN Reason: Fever Stop: 05/26/20 00:09 Apixaban (Eliquis) 5 mg PO BID [facility] Stop: 05/19/20 23:08 Last Admin: 04/28/20 08:20 Dose: 5 mg Documented by: Buspirone HCl (Buspar) 10 mg PO BID [facility] Stop: 05/19/20 23:08 Last Admin: 04/28/20 08:20 Dose: 10 mg Documented by: Clopidogrel Bisulfate (Plavix) 75 mg PO QAM [facility] Stop: 05/20/20 08:59 Last Admin: 04/28/20 08:20 Dose: 75 mg Documented by: Digoxin (Lanoxin) 0.125 mg PO MoWeFr@1600 [facility] Stop: 05/20/20 15:59 Last Admin: 04/27/20 15:50 Dose: 0.125 mg Documented by: Diltiazem HCl (Cardizem Cd) 240 mg PO DAILY [facility] Stop: 05/23/20 09:29 Last Admin: 04/28/20 08:20 Dose: 240 mg Documented by: Furosemide (Lasix) 20 mg PO QAM [facility] Stop: 05/23/20 08:59 Last Admin: 04/28/20 08:20 Dose: 20 mg Documented by: Gabapentin (Neurontin) 300 mg PO HS [facility] Stop: 05/19/20 23:08 Last Admin: 04/27/20 21:38 Dose: 300 mg Documented by: Levothyroxine Sodium (Synthroid) 25 mcg PO DAILYBB [facility] Stop: 05/20/20 06:29 Last Admin: 04/28/20 06:42 Dose: 25 mcg Documented by: Lidocaine (Lidoderm 5%) 1 patch TD QAM [facility] Stop: 05/26/20 00:59 Last Admin: 04/28/20 08:21 Dose: 1 patch Documented by: Metoprolol Succinate (Toprol Xl) 50 mg PO BID [facility] Stop: 05/19/20 23:08 Last Admin: 04/28/20 08:21 Dose: 50 mg Documented by: Miscellaneous (Remove Lidoderm Patch) 1 ea N/A DAILY@2100 [facility] Stop: 05/26/20 12:59 Last Admin: 04/27/20 21:39 Dose: 1 ea Documented by: Montelukast Sodium (Singulair) 10 mg PO DAILY [facility] Stop: 05/20/20 08:59 Last Admin: 04/28/20 08:21 Dose: 10 mg Documented by: Nitroglycerin (Nitrostat) 0.4 mg SL Q5M PRN PRN Reason: chest pain Stop: 05/19/20 23:08 Nystatin (Mycostatin) 1 appln EXT BID [facility] Stop: 05/20/20 01:34 Last Admin: 04/28/20 08:20 Dose: 1 appln Documented by: Oxycodone/Acetaminophen (Percocet 5mg/325mg) 1 tab PO Q6H PRN PRN Reason: Pain Stop: 05/06/20 15:29 Last Admin: 04/28/20 02:32 Dose: 1 tab Documented by: Polyethylene Glycol (Miralax Powder Packet) 17 gm PO DAILY PRN PRN Reason: Constipation Stop: 05/21/20 12:39 Last Admin: 04/23/20 07:59 Dose: 17 gm Documented by: Potassium Chloride (Klor-Con M10) 10 meq PO DAILY [facility] Stop: 05/20/20 08:59 Last Admin: 04/28/20 08:20 Dose: 10 meq Documented by: Sertraline HCl (Zoloft) 25 mg PO DAILY [facility] Stop: 05/20/20 08:59 Last Admin: 04/28/20 08:21 Dose: 25 mg Documented by: Spironolactone (Aldactone) 25 mg PO DAILY [facility] Stop: 05/23/20 08:59 Last Admin: 04/28/20 08:20 Dose: 25 mg Documented by: Tramadol HCl (Ultram) 25 - 50 mg PO Q4H PRN PRN Reason: Pain Stop: 05/26/20 00:09 Last Admin: 04/28/20 15:38 Dose: 50 mg Documented by: (1) UTI (urinary tract infection) Hematuria presence: without hematuria Urinary tract infection type: site unspecified Qualified Code(s): N39.0 - Urinary tract infection, site not specified
[2020-04-28] MEDS: GABAPENTIN 300 MG CAP PO SCH (20:18)
[2020-04-29] MEDS: TRAMADOL HCL 50 MG TABLET PO PRN ×2 (06:01→10:32)
[2020-04-29] MEDS: LEVOTHYROXINE SODIUM 25 MCG TABLET PO SCH (06:01)
[2020-04-29 07:03] LABS: Basophils # (auto) 0.04 K/uL (0-0.2); Basophils % (auto) 0.5 %; Eosinophils # (auto) 0.23 K/uL (0-0.5); Eosinophils % (auto) 2.7 %; Hematocrit (blood only) 35.9 % (37-47); Hemoglobin 11.7 g/dL (12.0-16.0); Immature Granulocytes # (auto) 0.03 K/uL (0.00-0.02); Immature Granulocytes % (auto) 0.4 %; Mean Corpuscular Hemoglobin 28.3 pg (25-34); Mean Corpuscular Hgb Conc 32.6 g/dL (32-36); Mean Corpuscular Volume 86.9 fL (80-100); Mean Platelet Volume 10.4 fL (7.4-10.4); Monocytes # (auto) 0.78 K/uL (0.11-0.59); Monocytes % (auto) 9.3 %; Neutrophils # (auto) 5.73 K/uL (1.4-6.5); Neutrophils % (auto) 68.1 %; Platelet Count 378 K/uL (130-400); RDW Coefficient of Variation 15.1 % (11.5-14.5); RDW Standard Deviation 48.2 fL (36.4-46.3); Red Blood Count 4.13 M/uL (4.2-5.4); White Blood Count 8.41 K/uL (4.8-10.8)
[2020-04-29 07:32] LABS: BUN Creatinine Ratio 26.9 (10-20); Calcium 8.9 mg/dl (8.5-10.1); Creatinine Clr Calc Pharmacy 53.8 ml/min; Est GFR (African American) 69.3; Est GFR (Non-African American) 59.8; Potassium 4.6 mmol/L (3.5-5.1)
[2020-04-29] MEDS: POTASSIUM CHLORIDE 10 MEQ TABCR PO SCH (07:49)
[2020-04-29] MEDS: APIXABAN 5 MG TABLET PO SCH (07:49)
[2020-04-29] MEDS: NYSTATIN POWDER 15GM BTL EXT SCH (07:49)
[2020-04-29] MEDS: CLOPIDOGREL BISULFATE 75 MG TAB PO SCH (07:49)
[2020-04-29] MEDS: MONTELUKAST SODIUM 10 MG TABLET PO SCH (07:49)
[2020-04-29] MEDS: METOPROLOL SUCC 50MG EXT REL TAB PO SCH (07:50)
[2020-04-29] MEDS: dilTIAZem HCL 240 MG CAPCR PO SCH (07:50)
[2020-04-29] MEDS: FUROSEMIDE 20 MG TAB PO SCH (07:50)
[2020-04-29] MEDS: SPIRONOLACTONE 25 MG TAB PO SCH (07:50)
[2020-04-29] MEDS: LIDOCAINE 5% 1 PATCH TD SCH (07:54)
[2020-04-29] MEDS: SERTRALINE HCL 50 MG TABLET PO SCH (07:54)
--- NOTE | 2020-04-29 11:46 | Hospitalist Progress Note ---
Date of Service April 29, 2020 Assessment & Plan (1) UTI (urinary tract infection): UTI Urine culture: Klebsiella pneumonia Leukocytosis normalized Received IV fluids Received IV Rocephin Antibiotic course this is finished and the patient does not have any urinary symptoms Denies any symptoms of UTI Back Pain: Severe Avascular Necrosis/ DJD bilateral Hip H/O Sciatica --. No evidence for subluxation. --Hip X ray:Severe osteoarthritis within the bilateral hips with [id number] articulation. Possible avascular necrosis within the bilateral femoral heads. No acute fracture or dislocation within the pelvis or hips. --CT L hip:Severe osteoarthritis of the left hip. No acute fracture. Several subchondral lucencies within the superior aspect of the left femoral head. These could indicate sequela of severe osteoarthritis or underlying avascular necrosis with collapse. --CT R hip:Severe osteoarthritis of the right hip. 1.8 cm subchondral mixed lucent and sclerotic focus within the superior aspect of the right femoral head. This could be secondary to osteoarthritis or reflect underlying avascular necrosis. -Appreciate Orthopedics input Needs nonurgent total hip replacement Patient o call [phone] to schedule follow-up appointment with Dr. Palmer. Remains stable with minimal pain at rest History of back surgery, now with ongoing back pain Thoracolumbar spine x-ray:The lateral projection confirms multilevel considerable degenerative disc changes throughout. The metallic hardware previously described appears to be intact MRI lumbar Spine:No acute fracture, subluxation or bone marrow edema. Posterior interbody estephanie and screw fusion redemonstrated at L2-S1. Multilevel foraminal narrowing is redemonstrated as detailed above which has not significantly changed from the November 07, 2018 exam. No significant central canal stenosis. Appreciate Dr. Potts's input and recommendation Continue PT/OT Needs acute rehab placement Does not have any radiculopathy pain Mild rhabdomyolysis Likely secondary to fall Received IV fluids Resolved Meningioma CT Head: No acute intracranial abnormality. A 2 cm extra-axial mass within the left high convexity. This favors a meningioma. Incidental finding on CT scan Follow up as outpatient with neurologist No neurological symptoms Atrial Fibrillation Bradycardia resolved Discussed with on 04/23/20 Continue Metoprolol 50mg BID Cardizem dose decreased to 240mg daily On Digoxin M//F On Eliquis for anticoagulation monitor -rate remains controlled HTN BP low Losartan Held Monitor BP meds adjust meds as needed (2) KALEE (acute kidney injury): On diuretics-- spironolactone and Lasix for diastolic heart failure Dehydrated on admission Received IV fluids Monitor volume status Cr levels normalized Monitor renal function KALEE resolved (3) Mood disorder: H/O Mood disorder with anxiety Continue Zoloft (4) Chronic diastolic heart failure: Resume Lasix, spironolactone Monitor volume status Not hypervolemic Hypothyroidism continue levothyroxine (5) Asthma: Stable DVT Px: Eliquis COVID-19 test is negative She will be discharged to rehab this afternoon Admission and Anticipated Discharge Date Admission Date: April 19, 2020 Subjective The patient was seen and examined in medical floor She has been complaining of pain in the hip mostly on the left side She denies any chest pain and/or palpitation, no abdominal pain nausea no vomiting, no fever and/or chills Awaiting results of coffee test before discharging from the hospital 04/28/2020 The patient was seen and examined in medical floor She has been waiting for the cord be placed before she can be transferred to rehab facility Denies any significant symptoms except ongoing pain in the hips 04/29/2020 The patient was seen and examined in medical telemetry unit She complains to have pain in both the hips but otherwise unremarkable symptoms Denies any chest pain, shortness of breath, palpitation, any abdominal pain, nausea and/or vomiting Review of Systems Review of Systems: All systems reviewed and are unremarkable except as noted below Musculoskeletal: + back pain Bilateral hip pain Physical Exam Physical Exam: Lying in bed comfortably Constitutional: well developed, well nourished and + obese; no acute distress Eyes: PERRL, conjunctivae normal, anicteric sclerae Neck: trachea midline, no thyromegaly Respiratory: normal respiratory effort; no respiratory distress Auscultation: lungs clear to auscultation bilaterally Cardiovascular: Rate/Rhythm: + irregularly irregular; + abnormal rate and + abnormal rhythm Heart Sounds: + murmur Extremities: + edema (Bilateral leg edema, chronic, and may have component of lymphedema) Gastrointestinal (Abdomen): Inspection/Auscultation: abdomen normal to inspection and normal bowel sounds; abdomen not distended Percussion/Palpation: abdomen soft; abdomen nontender (Minimally tender in the hypogastrium) Musculoskeletal: Bilateral hip pain with movement of the hip joints Neurologic: moves all extremities; no focal motor deficits Psychiatric: Orientation: alert and oriented x 3 Mood: + depressed mood Lymphatic: no cervical or axillary lymphadenopathy Results & Data Results & Data ([facility]) Vital Signs (Past 12 Hours) Vital Signs Temp Pulse Pulse Resp BP BP Pulse Ox 04/29/20 11:17 37.2 C 71 20 108/68 96 04/29/20 07:28 68 04/29/20 06:59 36.8 C 67 19 115/73 96 04/29/20 04:28 36.6 C 59 L 18 107/66 95 04/28/20 23:43 69 04/28/20 23:42 102/62 Laboratory Results Short CBC 04/29/20 Range/Units 06:37 WBC 8.41 (4.8-10.8) K/uL Hgb 11.7 L (12.0-16.0) g/dL Hct 35.9 L (37-47) % Plt Count 378 (130-400) K/uL BMP 04/29/20 06:37 Sodium 136 Potassium 4.6 Chloride 105 Carbon Dioxide 25 BUN 25 H Creatinine 0.94 Glucose 91 Calcium 8.9 Medications Administered Current Inpatient Medications Acetaminophen (Tylenol) 650 mg PO Q6H PRN PRN Reason: Fever Stop: 05/26/20 00:09 Apixaban (Eliquis) 5 mg PO BID [facility] Stop: 05/19/20 23:08 Last Admin: 04/29/20 07:49 Dose: 5 mg Documented by: Buspirone HCl (Buspar) 10 mg PO BID [facility] Stop: 05/19/20 23:08 Last Admin: 04/29/20 07:48 Dose: 10 mg Documented by: Clopidogrel Bisulfate (Plavix) 75 mg PO QAM [facility] Stop: 05/20/20 08:59 Last Admin: 04/29/20 07:49 Dose: 75 mg Documented by: Digoxin (Lanoxin) 0.125 mg PO MoWeFr@1600 [facility] Stop: 05/20/20 15:59 Last Admin: 04/27/20 15:50 Dose: 0.125 mg Documented by: Diltiazem HCl (Cardizem Cd) 240 mg PO DAILY [facility] Stop: 05/23/20 09:29 Last Admin: 04/29/20 07:50 Dose: 240 mg Documented by: Furosemide (Lasix) 20 mg PO QAM [facility] Stop: 05/23/20 08:59 Last Admin: 04/29/20 07:50 Dose: 20 mg Documented by: Gabapentin (Neurontin) 300 mg PO HS [facility] Stop: 05/19/20 23:08 Last Admin: 04/28/20 20:18 Dose: 300 mg Documented by: Levothyroxine Sodium (Synthroid) 25 mcg PO DAILYBB [facility] Stop: 05/20/20 06:29 Last Admin: 04/29/20 06:01 Dose: 25 mcg Documented by: Lidocaine (Lidoderm 5%) 1 patch TD QAM [facility] Stop: 05/26/20 00:59 Last Admin: 04/29/20 07:54 Dose: 1 patch Documented by: Metoprolol Succinate (Toprol Xl) 50 mg PO BID [facility] Stop: 05/19/20 23:08 Last Admin: 04/29/20 07:50 Dose: 50 mg Documented by: Miscellaneous (Remove Lidoderm Patch) 1 ea N/A DAILY@2100 [facility] Stop: 05/26/20 12:59 Last Admin: 04/28/20 20:16 Dose: 1 ea Documented by: Montelukast Sodium (Singulair) 10 mg PO DAILY [facility] Stop: 05/20/20 08:59 Last Admin: 04/29/20 07:49 Dose: 10 mg Documented by: Nitroglycerin (Nitrostat) 0.4 mg SL Q5M PRN PRN Reason: chest pain Stop: 05/19/20 23:08 Nystatin (Mycostatin) 1 appln EXT BID [facility] Stop: 05/20/20 01:34 Last Admin: 04/29/20 07:49 Dose: 1 appln Documented by: Oxycodone/Acetaminophen (Percocet 5mg/325mg) 1 tab PO Q6H PRN PRN Reason: Pain Stop: 05/06/20 15:29 Last Admin: 04/28/20 02:32 Dose: 1 tab Documented by: Polyethylene Glycol (Miralax Powder Packet) 17 gm PO DAILY PRN PRN Reason: Constipation Stop: 05/21/20 12:39 Last Admin: 04/23/20 07:59 Dose: 17 gm Documented by: Potassium Chloride (Klor-Con M10) 10 meq PO DAILY [facility] Stop: 05/20/20 08:59 Last Admin: 04/29/20 07:49 Dose: 10 meq Documented by: Sertraline HCl (Zoloft) 25 mg PO DAILY [facility] Stop: 05/20/20 08:59 Last Admin: 04/29/20 07:54 Dose: 25 mg Documented by: Spironolactone (Aldactone) 25 mg PO DAILY [facility] Stop: 05/23/20 08:59 Last Admin: 04/29/20 07:50 Dose: 25 mg Documented by: Tramadol HCl (Ultram) 25 - 50 mg PO Q4H PRN PRN Reason: Pain Stop: 05/26/20 00:09 Last Admin: 04/29/20 10:32 Dose: 50 mg Documented by: (1) UTI (urinary tract infection) Hematuria presence: without hematuria Urinary tract infection type: site unspecified Qualified Code(s): N39.0 - Urinary tract infection, site not specified
[2020-04-29] MEDS: OXYCODONE/ACETAMINOPHEN 5mg/325mg TAB PO PRN (15:05)
[2020-04-29] MEDS: DIGOXIN 0.125 MG TAB PO SCH (15:06)
--- NOTE | 2020-04-30 08:39 | Discharge Summary ---
Date of Service April 30, 2020 Admission HPI Per Admitting Provider She is a 75-year-old female with significant past medical history including atrial fibrillation on anticoagulation, history of diastolic heart failure, mitral valve regurgitation, depression with mood disorder, controlled asthma and osteoarthritis has been complaining of occasional hallucination and forgetfulness for the last 2 to 3 weeks. She has been gradually weak and the weakness is worse as of today when she ended up with a fall injuring her left knee. She also complains to have increasing frequency and pain associated with urination. Denies any fever but did have sweating and feeling of cold with it. Denies any shortness of breath and/or chest pain, any nausea or vomiting and complains that her legs have been swollen for a long time denies any acute swelling. In the ER she was noted to be febrile without tachycardia and a low blood pressure. Her white count was elevated to 14,000 with UA very suggestive of infection and she was noted to be in acute kidney injury. She is admitted to [facility] telemetry unit for continuation of care. Admission Exam Per Admitting Provider Physical Exam: Lying in bed comfortably Constitutional: well developed, well nourished, + ill appearing and + obese; no acute distress Eyes: PERRL, conjunctivae normal, anicteric sclerae ENMT: Dry mouth Neck: trachea midline, no thyromegaly Respiratory: normal respiratory effort; no respiratory distress Auscultation: lungs clear to auscultation bilaterally Cardiovascular: Rate/Rhythm: + irregularly irregular Heart Sounds: + murmur Extremities: + edema (Bilateral leg edema, chronic, and may have component of lymphedema) Gastrointestinal (Abdomen): Inspection/Auscultation: abdomen normal to inspection and normal bowel sounds; abdomen not distended Percussion/Palpation: + abdomen tender (Minimally tender in the hypogastrium) and abdomen soft Musculoskeletal: Osteoarthritic changes generally. Minimal bruising involving the lateral aspect of left knee Neurologic: moves all extremities; no focal motor deficits Alert, awake and oriented x3 Psychiatric: Orientation: alert and oriented x 3 Mood: + depressed mood C omplains to have hallucination with mild confusion for the last 3 weeks Principal Diagnosis Bilateral hip pain secondary to avascular necrosis, chronic back pain with history of back surgery, atrial fibrillation on Eliquis, chronic diastolic heart failure Discharge Exam Constitutional well developed, well nourished and + obese; no acute distress Eyes PERRL, conjunctivae normal, anicteric sclerae Neck trachea midline, no thyromegaly Respiratory normal respiratory effort; no respiratory distress Auscultation: lungs clear to auscultation bilaterally Cardiovascular Rate/Rhythm: + irregularly irregular; + abnormal rate and + abnormal rhythm Heart Sounds: + murmur Extremities: + edema (Bilateral leg edema, chronic, and may have component of lymphedema) Gastrointestinal (Abdomen) Inspection/Auscultation: abdomen normal to inspection and normal bowel sounds; abdomen not distended Percussion/Palpation: abdomen soft; abdomen nontender (Minimally tender in the hypogastrium) Neurologic moves all extremities; no focal motor deficits Psychiatric Orientation: alert and oriented x 3 Mood: + depressed mood Lymphatic no cervical or axillary lymphadenopathy Discharge Data Allergies Allergy/AdvReac Type Severity Reaction Status Date / Time adhesive Allergy Unknown HEAVIER Verified 04/19/20 15:33 SURG TAPE-REDNESS SORE SKIN cat dander Allergy Unknown ITCHY Verified 04/19/20 15:33 NOSE, ITCHY EYES,RUNNY NOSE grass pollen-perennial rye, Allergy Unknown GRASS,MOLD-ITCHY Verified 04/19/20 15:33 standar EYES RUNNY NOSE latex Allergy Unknown CONTACT Verified 04/19/20 15:33 DERMATITIS tetanus toxoid, adsorbed Allergy Unknown SWELLING Verified 04/19/20 15:33 AT SITE KOLE Inhibitors AdvReac Unknown COUGH Unverified 04/19/20 15:33 Consultations 04/19/20 17:37 ED Decision to Admit Stat 04/22/20 12:28 Consult Orthopedic Surgery Routine 04/25/20 11:34 Consult Orthopedic Surgery Routine Ordered Studies 04/19/20 15:08 CT head/brain wo con Stat 04/23/20 12:47 CT hip LT wo con Routine CT hip RT wo con Routine 04/24/20 MR lumbar spine wo con Routine Hospital Course (1) UTI (urinary tract infection): UTI Urine culture: Klebsiella pneumonia Leukocytosis normalized Received IV fluids Received IV Rocephin Antibiotic course this is finished and the patient does not have any urinary sym ptoms Denies any symptoms of UTI Back Pain: Severe Avascular Necrosis/ DJD bilateral Hip H/O Sciatica --. No evidence for subluxation. --Hip X ray:Severe osteoarthritis within the bilateral hips with [id number] articulation. Possible avascular necrosis within the bilateral femoral heads. No acute fracture or dislocation within the pelvis or hips. --CT L hip:Severe osteoarthritis of the left hip. No acute fracture. Several subchondral lucencies within the superior aspect of the left femoral head. These could indicate sequela of severe osteoarthritis or underlying avascular necrosis with collapse. --CT R hip:Severe osteoarthritis of the right hip. 1.8 cm subchondral mixed lucent and sclerotic focus within the superior aspect of the right femoral head. This could be secondary to osteoarthritis or reflect underlying avascular necrosis. -Appreciate Orthopedics input Needs nonurgent total hip replacement Patient o call [phone] to schedule follow-up appointment with Dr. Palmer. Remains stable with minimal pain at rest History of back surgery, now with ongoing back pain Thoracolumbar spine x-ray:The lateral projection confirms multilevel considerable degenerative disc changes throughout. The metallic hardware previously described appears to be intact MRI lumbar Spine:No acute fracture, subluxation or bone marrow edema. Posterior interbody estephanie and screw fusion redemonstrated at L2-S1. Multilevel foraminal narrowing is redemonstrated as detailed above which has not significantly changed from the November 07, 2018 exam. No significant central canal stenosis. Appreciate Dr. Potts's input and recommendation Continue PT/OT Needs acute rehab placement Does not have any radiculopathy pain Mild rhabdomyolysis Likely secondary to fall Received IV fluids Resolved Meningioma CT Head: No acute intracranial abnormality. A 2 cm extra-axial mass within the left high convexity. This favors a meningioma. Incidental finding on CT scan Follow up as outpatient with neurologist No neurological symptoms Atrial Fibrillation Bradycardia resolved Discussed with on 04/23/20 Continue Metoprolol 50mg BID Cardizem dose decreased to 240mg daily On Digoxin // On Eliquis for anticoagulation monitor -rate remains controlled HTN BP low Losartan Held Monitor BP meds adjust meds as needed (2) KALEE (acute kidney injury): On diuretics-- spironolactone and Lasix for diastolic heart failure Dehydrated on admission Received IV fluids Monitor volume status Cr levels normalized Monitor renal function KALEE resolved (3) Mood disorder: H/O Mood disorder with anxiety Continue Zoloft (4) Chronic diastolic heart failure: Resume Lasix, spironolactone Monitor volume status Not hypervolemic Hypothyroidism continue levothyroxine (5) Asthma: Stable DVT Px: Eliquis COVID-19 test is negative She will be discharged to rehab this afternoon Total Time Total Time Spent Total Time Spent (In Minutes): 35 minutes Total Time Includes: Examination of the Patient, Discharge Planning, Medication Reconciliation and Communication With Other Providers Discharge Plan Discharge Items Patient Disposition: Transfer Inpatient Rehab Fac Reason For Visit: KALEE,UTI Discharge Diagnosis: Bilateral hip pain secondary to avascular necrosis, chronic back pain with history of back surgery, atrial fibrillation on Eliquis, chronic diastolic heart failure Condition on Discharge: Fair Activity: As commented below Activity Comment: Continue PT Non-emergency contact: Primary Care Provider Call non-emergency contact if: you have any medication questions and your symptoms worsen Follow-up/Referrals: Kari Walters DO [Primary Care Provider] - (Please make an appointment with your primary care physician within 7 days following discharge from the facility) Dilip Palmer DO [Physician] - (Please call Dr. Palmer's office for an appointment Follow up for treatment of hip AVN/DJD) Diet: Heart Healthy Addtl Attending Provider Instructions: Please take precaution to avoid falls Pending Studies at Discharge: No Stand-Alone Forms: My [employer] Skilled Items Patient informed of condition?: Yes DNR: Yes Discharge Level of Care: Skilled Communicable Disease: No Discharge Prognosis: Stable Lines: None Urinary Catheter: No Medications and DC Order Prescriptions: New diltiazem HCl 240 mg Capsule,Extended Release 24hr 240 mg PO DAILY 30 Days Qty: 30 RF: 0 oxycodone-acetaminophen [Percocet] 5-325 mg Tablet 1 tab PO Q4H PRN (Reason: pain) 3 Days Qty: 15 RF: 0 lidocaine 5 % Adhesive Patch,Medicated 1 patch transdermal QAM 30 Days Qty: 30 RF: 0 Continued Eliquis 5 mg tablet 5 mg PO BID RF: 0 buspirone 10 mg tablet 10 mg PO BID RF: 0 montelukast 10 mg tablet 10 mg PO DAILY RF: 0 gabapentin 300 mg capsule 300 mg PO HS RF: 0 metoprolol succinate 50 mg tablet extended release 24 hr 50 mg PO BID RF: 0 sertraline 25 mg tablet 25 mg PO DAILY RF: 0 digoxin 125 mcg (0.125 mg) tablet 125 mcg PO 3XWK RF: 0 potassium chloride 10 mEq tablet,ER particles/crystals 10 meq PO DAILY RF: 0 spironolactone 25 mg tablet 25 mg PO DAILY RF: 0 levothyroxine 25 mcg tablet 25 mcg PO QAM RF: 0 furosemide 20 mg Tablet 20 mg PO QAM Qty: 30 RF: 5 atorvastatin 40 mg Tablet 40 mg PO QAM Qty: 30 RF: 5 clopidogrel 75 mg Tablet 75 mg PO QAM Qty: 30 RF: 5 nitroglycerin [Nitrostat] 0.4 mg tablet, sublingual 0.4 mg Sublingual Q5M PRN (Reason: chest pain) Qty: 25 RF: 1 Discontinued losartan 25 mg tablet 25 mg PO DAILY RF: 0 diltiazem HCl [Cardizem CD] 300 mg capsule,extended release 24hr 300 mg PO DAILY RF: 0 Discharge Orders: Discharge Order (Routine); Ordered 04/29/20 Ordered By: Leandro Blanco Admission Data Admit Date/Time: 04/19/20 18:28 Attending Provider: Leandro Blanco Admit Provider: Leandro Blanco Primary Care Provider: Kari Walters Other Providers: Marion Rodriguez ; Eddi Potts Casey R ; Grady Griffiths Other Interventions: Discharge Summary Assessment (RN) Last Done: 04/29/20 12:17 DC Date/Time DO NOT enter until pt leaves facility: 04/29/20 16:34
== END 2020-04-29 16:34 | DRG 690 ==
LOC: ED 13:51 → 2N 18:28 → SUATTDRO 18:28 → 2N 22:47

== ENCOUNTER 2020-09-05 00:05 | Inpatient (IN) ==
--- NOTE | 2020-09-05 00:22 | Emergency Department Note ---
Impression & Plan Depression with suicidal ideation ED Provider Note Name: LISA THOMAS Age: 75 Sex: F Arrives Via: Ambulance Informant: Patient, Crisis Paperwork ED Provider: Nehemiah Rosa MD Chief Complaint: Mental Health Evaluation Impression: Depression with Suicidal Ideation Medical Decision Makin yr old female arrives for mental health evaluation after making suicidal statements to both son and CAN help worker. Patient downplaying what happened but clearly made statements which she does admit. Previous psychiatric evaluations, most recently due to UTI and hallucinations. She is medically clear here with her Afib stable, CT head negative, CXR clear, covid negative and labs unremarkable. There is no current evidence of infection nor medical reason for her current state. She is calm, though disagrees she is a threat to herself thus proceed with 302. Crisis to work on placement. Stable throughout stay. Prior Medical Record and Triage/Nursing Notes reviewed by Me Additional history obtained from Crisis paperwork Differentials:Mood disorder, infection, hypoglycemia, electrolyte abnormalities, cardiac sources, intracerebral event, toxicologic, trauma, neurologic, as well as other pathologies. Vital Signs: reviewed and remarkable for no significant abnormalities Interventions: none Labs:Reviewed and remarkable for no significant abnormalities Imaging:X ray results are stated below per my interpretation: Chest: 1 view: No infiltrate, no effusion, normal cardiac border. [facility] Radiologist interpretation reviewed by me: CT head no acute findings EKG:Per My Interpretation: Indication Mental Health Eval: Afib 104 bpm, qtc 449. No Ectopy. No Ischemia. Compared to EKG 04/19/20, no significant changes. Cardiac/Tele Monitoring: Cardiac Monitoring: An Order was placed for continuous cardiac monitoring. The monitor shows a rate of 80 with a afib rhythm. Plan: Disposition: Signed out to Dr Mendez pending placement Condition: Good History of Present Illness:75 yr old female arrives for psychiatric evaluation. Patient reports she was in fight with son and admits making suicidal threat. She denies plan to harm self. States she said she was going to take all her medications, but she does not feels she would have harmed self. Denies suicidal ideation currently nor earlier. Denies attempt at harm. Admits depression due to anger with her son. No trauma, injuries. Denies drug, alcohol use. Fighting with son makes worse, getting out of situation makes better. Admits she is anxious right now. No medications taken for this this evening. Admits chronic back pain which is slightly worse due to getting upset. No cp, sob, abdominal pain, headache, neck pain, vision changes, syncope, shob, nausea, vomiting, urinary/bowel changes, leg swelling nor other symptoms. Admits history of psychiatric issues due to UTIs but states she feels well tonight. ROS: See above HPI for pertinent positives & negatives. A total of 10 systems reviewed and were otherwise negative. Past Medical History:Mood Disorder, Afib, Depression, Asthma, Arthritis, Dyslipidemia, Hypothyroid Past Surgical History:Knee replacement, cardiac stents, lumbar surgery, hernia surgery, csection, cataracts Family History:Father: CAD Social History:Lives with son, no smoking, occasional etoh Home Medications:See Below Allergies:adhesive, latex, tetanus toxoid, kole inhibitors Vitals:Blood Pressure: 128/94, Pulse 86, RR 20, T 37C, O2 98% on RA Physical Exam: GENERAL: Patient is elderly appearing and in no distress. EYES: No scleral icterus, unremarkable pupils. ENT: Mucous membranes moist, no nasal congestion. NECK: No masses appreciated, nomeningismus, trachea is midline. RESPIRATORY: No dyspnea. Clear to auscultation and equal bilaterally. No wheeze, no rhonchi. CARDIOVASCULAR: Irregular.No murmurs, rubs, gallops appreciated. GASTROINTESTINAL: Abdomen soft, non-tender, no peritonitis.Bowel sounds positive.No masses appreciated. BACK: No midline tenderness, no CVA tenderness EXTREMITIES: Normal motion all extremities, no cyanosis, no edema. NEUROLOGIC: Alert and oriented, no acute motor or sensory deficits, no focal weakness, cranial nerves grossly intact. SKIN: No rash, no jaundice, no diaphoresis. PSYCH: Upset she is here though calmed down quickly, admits suicidal statements and depression, denies she was actually planning on killing self, downplaying what was said GCS: 15 ED Course: Times/Reassessments: Stable, cooperative Nehemiah Rosa MD Past Med/Surg History Medical History Anxiety Arthritis Asthma rescue inhaler weekly PRN Atrial fibrillation hx cardioversion (unsuccessful) Chronic diastolic heart failure Coronary artery disease 08/31/19 thrombus RCA, PCI with JAILENE Depression Dyslipidemia History of cardioversion History of DVT (deep vein thrombosis) ~1999. Hx of breast cancer left Hypertension Hypothyroidism Kidney stones Prediabetes Scoliosis Urinary tract infection 04/19/20 treated at [facility] -- sent to [facility] [place] d/t hallucinations and further treatment for ~1 week. currently at home. Surgical History History of bilateral tubal ligation History of cataract surgery bilateral History of section x2 History of colonoscopy History of left knee replacement History of right knee joint replacement Hx of lumpectomy Left lumpectomy with lymph node removal S/P bunionectomy bilateral S/P left inguinal hernia repair x2 S/P QUINCY-BSO Status post coronary artery stent placement 08/31/19 thrombus RCA, PCI with JAILENE ([facility]). Follows with Sara Nunez. Status post lumbar surgery [facility] Family History Other Heart disease No family history of adverse response to anesthesia Social History Smoking Status: Never smoker Second Hand Exposure: Yes (hx); Hx Alcohol Use: Yes Alcohol type: wine Hx Substance Use: No Preferred Language: Georgian Communication Ability: Effective Bb Shot Packer Required: No Beliefs That Will Affect Care: None Current Living Situation: Family Current Living Situation Comment: w/ son Feels Safe at Home: Yes Assistive Devices: Cane, Glasses and Walker Allergies Allergies Allergy/AdvReac Type Severity Reaction Status Date / Time adhesive Allergy Unknown HEAVIER Verified 09/05/20 01:28 SURG TAPE-REDNESS SORE SKIN cat dander Allergy Unknown ITCHY Verified 09/05/20 01:28 NOSE, ITCHY EYES,RUNNY NOSE grass pollen-perennial rye, Allergy Unknown GRASS,MOLD-ITCHY Verified 09/05/20 01:28 standar EYES RUNNY NOSE latex Allergy Unknown CONTACT Verified 09/05/20 01:28 DERMATITIS tetanus toxoid, adsorbed Allergy Unknown SWELLING Verified 09/05/20 01:28 AT SITE KOLE Inhibitors AdvReac Unknown COUGH Unverified 09/05/20 01:28 Home Meds Home Medications Medication Instructions Recorded Confirmed gabapentin 300 mg PO HS 07/03/19 09/05/20 apixaban 5 mg tablet 5 mg PO BID 08/19/19 09/05/20 levothyroxine 25 mcg PO QAM 08/27/19 09/05/20 digoxin 125 mcg PO 3XWK 04/19/20 09/05/20 potassium chloride 10 meq PO DAILY 04/19/20 09/05/20 sertraline 25 mg PO QAM 04/19/20 09/05/20 spironolactone 25 mg PO QAM 04/19/20 09/05/20 albuterol sulfate [Ventolin HFA] 1 inh INHALATION QID PRN 05/19/20 09/05/20 hydrocodone-acetaminophen 1 tab PO Q6 PRN 05/19/20 09/05/20 aspirin [Aspirin Low Dose] 81 mg PO DAILY 09/05/20 09/05/20 metoprolol succinate 100 mg PO BID 09/05/20 09/05/20 Previous Rx's Medication Instructions Recorded atorvastatin 40 mg PO QAM #30 tab 09/02/19 nitroglycerin [Nitrostat] 0.4 mg SUBLINGUAL Q5M PRN #25 tab 09/02/19 Results & Data (ED) Vital Signs Vital Signs - 24 hr 09/05/20 00:16 09/05/20 00:58 09/05/20 02:23 Temperature 37 C Temperature Source Oral Pulse Rate 108 H Pulse Rate [Bilateral Apical] 96 H 87 Respiratory Rate 20 20 20 Respiratory Effort / Characteristics Non-Labored Respiratory Depth Normal Blood Pressure 148/98 H Blood Pressure [Right Arm] 128/91 124/78 Blood Pressure Mean 114 Blood Pressure Mean [Right Arm] 103 93 Pulse Oximetry 95 93 95 Oxygen Delivery Method Room Air Room Air Room Air Sepsis Recent Fever Within 48 Hours No Sepsis New/Unexplained Change in Mental Status N/A Sepsis Action Taken by Nursing No Action Required 09/05/20 03:28 09/05/20 05:02 Temperature Temperature Source Pulse Rate Pulse Rate [Bilateral Apical] 90 86 Respiratory Rate 20 20 Respiratory Effort / Characteristics Respiratory Depth Blood Pressure Blood Pressure [Right Arm] 118/65 128/94 Blood Pressure Mean Blood Pressure Mean [Right Arm] 82 105 Pulse Oximetry 92 98 Oxygen Delivery Method Room Air Room Air Sepsis Recent Fever Within 48 Hours Sepsis New/Unexplained Change in Mental Status Sepsis Action Taken by Nursing Laboratory Data Result diagrams: 09/05/20 00:28 09/05/20 00:28 Lab Results 09/05/20 09/05/20 09/05/20 Range/Units 00:20 00:20 00:28 WBC 11.17 H (4.8-10.8) K/uL RBC 4.33 (4.2-5.4) M/uL Hgb 13.0 (12.0-16.0) g/dL Hct 38.3 (37-47) % MCV 88.5 (80-100) fL MCH 30.0 (25-34) pg MCHC 33.9 (32-36) g/dL RDW Std Deviation 44.9 (36.4-46.3) fL RDW Coeff of Stephan 13.9 (11.5-14.5) % Plt Count 269 (130-400) K/uL MPV 10.6 H (7.4-10.4) fL Immature Gran % (Auto) 0.2 % Neut % (Auto) 67.4 % Lymph % (Auto) 21.3 % [place] % (Auto) 9.0 % Eos % (Auto) 1.9 % Baso % (Auto) 0.2 % Neut # (Auto) 7.53 H (1.4-6.5) K/uL Lymph # (Auto) 2.38 (1.2-3.4) K/uL [place] # (Auto) 1.01 H (0.11-0.59) K/uL Eos # (Auto) 0.21 (0-0.5) K/uL Baso # (Auto) 0.02 (0-0.2) K/uL Immature Gran # (Auto) 0.02 (0.00-0.02) K/uL Sodium (136-145) mmol/L Potassium (3.5-5.1) mmol/L Chloride (98-107) mmol/L Carbon Dioxide (21-32) mmol/L Anion Gap (3-11) BUN (7-18) mg/dl Creatinine (0.6-1.2) mg/dl Est Cr Clr Drug Dosing ml/min Est GFR ( Amer) Est GFR (Non-Af Amer) BUN/Creatinine Ratio (10-20) Glucose (70-99) mg/dl Calcium (8.5-10.1) mg/dl Total Bilirubin (0.2-1) mg/dl AST (15-37) U/L ALT (12-78) U/L Alkaline Phosphatase (45-117) U/L Total Protein (6.4-8.2) gm/dl Albumin (3.4-5.0) gm/dl Globulin (2.5-4.0) gm/dl Albumin/Globulin Ratio (0.9-2) TSH (0.300-4.500) uIu/ml Urine Color Yellow Urine Appearance Clear (Clear) Urine pH 6.5 (4.5-7.5) Ur Specific Hope 1.017 (1.000-1.030) Urine Protein Negative (Negative) Urine Glucose (UA) Negative (Negative) Urine Ketones Negative (Negative) Urine Blood Negative (Negative) Urine Nitrite Negative (Negative) Urine Bilirubin Negative (Negative) Urine Urobilinogen Negative (Negative) Ur Leukocyte Esterase Negative (Negative) Digoxin (0.8-2.0) ng/ml Salicylates (2.8-20) mg/dl Urine Opiates Screen Pos H (Neg) Ur Methadone, Qual Neg (Neg) Acetaminophen (10-30) ug/ml Urine Barbiturates Neg (Neg) Ur Phencyclidine (PCP) Neg (Neg) U Amphetamin/Meth Scrn Neg (Neg) MDMA (Ecstasy) Screen Neg (Neg) U Benzodiazepines Scrn Neg (Neg) Ur Cocaine Metabolite Neg (Neg) U Marijuana (THC) Screen Neg (Neg) Ethyl Alcohol mg/dL (0-3) mg/dl COVID-19 Eval Order SARS-CoV-2, RNA, NAAT (NEGATIVE) 09/05/20 09/05/20 09/05/20 Range/Units 00:28 00:28 00:28 WBC (4.8-10.8) K/uL RBC (4.2-5.4) M/uL Hgb (12.0-16.0) g/dL Hct (37-47) % MCV (80-100) fL MCH (25-34) pg MCHC (32-36) g/dL RDW Std Deviation (36.4-46.3) fL RDW Coeff of Stephan (11.5-14.5) % Plt Count (130-400) K/uL MPV (7.4-10.4) fL Immature Gran % (Auto) % Neut % (Auto) % Lymph % (Auto) % [place] % (Auto) % Eos % (Auto) % Baso % (Auto) % Neut # (Auto) (1.4-6.5) K/uL Lymph # (Auto) (1.2-3.4) K/uL [place] # (Auto) (0.11-0.59) K/uL Eos # (Auto) (0-0.5) K/uL Baso # (Auto) (0-0.2) K/uL Immature Gran # (Auto) (0.00-0.02) K/uL Sodium 143 (136-145) mmol/L Potassium 3.6 (3.5-5.1) mmol/L Chloride 112 H (98-107) mmol/L Carbon Dioxide 25 (21-32) mmol/L Anion Gap 6.0 (3-11) BUN 13 (7-18) mg/dl Creatinine 0.90 (0.6-1.2) mg/dl Est Cr Clr Drug Dosing 53.6 ml/min Est GFR ( Amer) 73.0 Est GFR (Non-Af Amer) 63.0 BUN/Creatinine Ratio 14.1 (10-20) Glucose 102 H (70-99) mg/dl Calcium 8.7 (8.5-10.1) mg/dl Total Bilirubin 0.6 (0.2-1) mg/dl AST 20 (15-37) U/L ALT 32 (12-78) U/L Alkaline Phosphatase 100 (45-117) U/L Total Protein 6.7 (6.4-8.2) gm/dl Albumin 3.2 L (3.4-5.0) gm/dl Globulin 3.5 (2.5-4.0) gm/dl Albumin/Globulin Ratio 0.9 (0.9-2) TSH 4.380 (0.300-4.500) uIu/ml Urine Color Urine Appearance (Clear) Urine pH (4.5-7.5) Ur Specific Hope (1.000-1.030) Urine Protein (Negative) Urine Glucose (UA) (Negative) Urine Ketones (Negative) Urine Blood (Negative) Urine Nitrite (Negative) Urine Bilirubin (Negative) Urine Urobilinogen (Negative) Ur Leukocyte Esterase (Negative) Digoxin (0.8-2.0) ng/ml Salicylates < 1.7 L (2.8-20) mg/dl Urine Opiates Screen (Neg) Ur Methadone, Qual (Neg) Acetaminophen 7 L (10-30) ug/ml Urine Barbiturates (Neg) Ur Phencyclidine (PCP) (Neg) U Amphetamin/Meth Scrn (Neg) MDMA (Ecstasy) Screen (Neg) U Benzodiazepines Scrn (Neg) Ur Cocaine Metabolite (Neg) U Marijuana (THC) Screen (Neg) Ethyl Alcohol mg/dL < 3.0 (0-3) mg/dl COVID-19 Eval Order SARS-CoV-2, RNA, NAAT (NEGATIVE) 09/05/20 09/05/20 09/05/20 Range/Units 00:28 03:30 03:30 WBC (4.8-10.8) K/uL RBC (4.2-5.4) M/uL Hgb (12.0-16.0) g/dL Hct (37-47) % MCV (80-100) fL MCH (25-34) pg MCHC (32-36) g/dL RDW Std Deviation (36.4-46.3) fL RDW Coeff of Stephan (11.5-14.5) % Plt Count (130-400) K/uL MPV (7.4-10.4) fL Immature Gran % (Auto) % Neut % (Auto) % Lymph % (Auto) % [place] % (Auto) % Eos % (Auto) % Baso % (Auto) % Neut # (Auto) (1.4-6.5) K/uL Lymph # (Auto) (1.2-3.4) K/uL [place] # (Auto) (0.11-0.59) K/uL Eos # (Auto) (0-0.5) K/uL Baso # (Auto) (0-0.2) K/uL Immature Gran # (Auto) (0.00-0.02) K/uL Sodium (136-145) mmol/L Potassium (3.5-5.1) mmol/L Chloride (98-107) mmol/L Carbon Dioxide (21-32) mmol/L Anion Gap (3-11) BUN (7-18) mg/dl Creatinine (0.6-1.2) mg/dl Est Cr Clr Drug Dosing ml/min Est GFR ( Amer) Est GFR (Non-Af Amer) BUN/Creatinine Ratio (10-20) Glucose (70-99) mg/dl Calcium (8.5-10.1) mg/dl Total Bilirubin (0.2-1) mg/dl AST (15-37) U/L ALT (12-78) U/L Alkaline Phosphatase (45-117) U/L Total Protein (6.4-8.2) gm/dl Albumin (3.4-5.0) gm/dl Globulin (2.5-4.0) gm/dl Albumin/Globulin Ratio (0.9-2) TSH (0.300-4.500) uIu/ml Urine Color Urine Appearance (Clear) Urine pH (4.5-7.5) Ur Specific Hope (1.000-1.030) Urine Protein (Negative) Urine Glucose (UA) (Negative) Urine Ketones (Negative) Urine Blood (Negative) Urine Nitrite (Negative) Urine Bilirubin (Negative) Urine Urobilinogen (Negative) Ur Leukocyte Esterase (Negative) Digoxin 0.4 L (0.8-2.0) ng/ml Salicylates (2.8-20) mg/dl Urine Opiates Screen (Neg) Ur Methadone, Qual (Neg) Acetaminophen (10-30) ug/ml Urine Barbiturates (Neg) Ur Phencyclidine (PCP) (Neg) U Amphetamin/Meth Scrn (Neg) MDMA (Ecstasy) Screen (Neg) U Benzodiazepines Scrn (Neg) Ur Cocaine Metabolite (Neg) U Marijuana (THC) Screen (Neg) Ethyl Alcohol mg/dL (0-3) mg/dl COVID-19 Eval Order [facility] SARS-CoV-2, RNA, NAAT NEGATIVE (NEGATIVE) Administered Medications Hydrocodone Bitart/Acetaminophen (Hydrocodone/Acetamophen 5/325mg Tab) 1 tab PO Q6 PRN PRN Reason: Pain Stop: 09/19/20 14:59 Last Admin: 09/06/20 10:48 Dose: 1 tab Documented by: [id number] Admin: 09/05/20 20:21 Dose: 1 tab Documented by: [id number] Apixaban (Apixaban 5 Mg Tablet) 5 mg PO BID DAO Stop: 10/05/20 20:59 Last Admin: 09/06/20 08:34 Dose: 5 mg Documented by: [id number] Admin: 09/05/20 20:20 Dose: 5 mg Documented by: [id number] Aspirin (Aspirin 81 Mg Ectab) 81 mg PO DAILY DAO Stop: 10/06/20 08:59 Last Admin: 09/06/20 08:33 Dose: 81 mg Documented by: [id number] Atorvastatin Calcium (Atorvastatin 40 Mg Tab) 40 mg PO QAM DAO Stop: 10/06/20 08:59 Last Admin: 09/06/20 08:34 Dose: 40 mg Documented by: [id number] Gabapentin (Gabapentin 300 Mg Cap) 300 mg PO HS DAO Stop: 10/05/20 21:59 Last Admin: 09/05/20 20:20 Dose: 300 mg Documented by: [id number] Levothyroxine Sodium (Levothyroxine Sodium 25 Mcg Tablet) 25 mcg PO DAILYBB DAO Stop: 10/06/20 07:59 Last Admin: 09/06/20 08:33 Dose: 25 mcg Documented by: [id number] Metoprolol Succinate (Metoprolol Succ 50mg Ext Rel Tab) 100 mg PO BID DAO Stop: 10/05/20 20:59 Last Admin: 09/06/20 08:34 Dose: 100 mg Documented by: [id number] Admin: 09/05/20 20:19 Dose: 100 mg Documented by: [id number] Potassium Chloride (Potassium Chloride 10 Meq Tabcr) 10 meq PO DAILY [facility] Stop: 10/06/20 08:59 Last Admin: 09/06/20 08:34 Dose: 10 meq Documented by: [id number] Sertraline HCl (Sertraline Hcl 50 Mg Tablet) 50 mg PO QAM DAO Stop: 10/06/20 08:59 Last Admin: 09/06/20 08:34 Dose: 50 mg Documented by: [id number] Spironolactone (Spironolactone 25 Mg Tab) 25 mg PO QAM [facility] Stop: 10/06/20 08:59 Last Admin: 09/06/20 08:33 Dose: 25 mg Documented by: [id number] Discontinued Medications Apixaban (Apixaban 5 Mg Tablet) 5 mg PO BID DAO Stop: 10/05/20 08:59 Last Admin: 09/05/20 09:49 Dose: 5 mg Documented by: [id number] Aspirin (Aspirin 81 Mg Ectab) 81 mg PO DAILY DAO Stop: 10/05/20 08:59 Last Admin: 09/05/20 09:49 Dose: 81 mg Documented by: [id number] Atorvastatin Calcium (Atorvastatin 40 Mg Tab) 40 mg PO QAM DAO Stop: 10/05/20 08:59 Last Admin: 09/05/20 09:49 Dose: 40 mg Documented by: [id number] Digoxin (Digoxin 0.125 Mg Tab) 0.125 mg PO MoWeFr DAO Stop: 10/05/20 09:59 Last Admin: 09/05/20 10:09 Dose: 0.125 mg Documented by: [id number] Levothyroxine Sodium (Levothyroxine Sodium 25 Mcg Tablet) 25 mcg PO QAM [facility] Stop: 10/05/20 08:59 Last Admin: 09/05/20 09:49 Dose: 25 mcg Documented by: [id number] Metoprolol Succinate (Metoprolol Succ 50mg Ext Rel Tab) 100 mg PO BID DAO Stop: 10/05/20 08:59 Last Admin: 09/05/20 09:50 Dose: 100 mg Documented by: [id number] Morphine Sulfate (Morphine Sulfate 2 Mg/Ml Carp) 2 mg IV NOW STA Stop: 09/05/20 09:25 Last Admin: 09/05/20 09:50 Dose: 2 mg Documented by: [id number] Potassium Chloride (Potassium Chloride 10 Meq Tabcr) 10 meq PO DAILY DAO Stop: 10/05/20 08:59 Last Admin: 09/05/20 09:49 Dose: 10 meq Documented by: [id number] Sertraline HCl (Sertraline Hcl 50 Mg Tablet) 25 mg PO QAM [facility] Stop: 10/05/20 08:59 Last Admin: 09/05/20 09:50 Dose: 25 mg Documented by: [id number] Spironolactone (Spironolactone 25 Mg Tab) 25 mg PO QAM [facility] Stop: 10/05/20 08:59 Last Admin: 09/05/20 09:49 Dose: 25 mg Documented by: [id number] Discharge Plan Visit Data Chief Complaint: Mental Health Evaluation Stated Complaint: MENTAL HEALTH ED Provider: Karthik Mendez Discharge Problem: Depression with suicidal ideation Patient Disposition: Admitted As Inpatient Discharge Instructions Interventions: ED Discharge Assessment Last Done: 09/05/20 14:53
[2020-09-05 00:46] LABS: Basophils # (auto) 0.02 K/uL (0-0.2); Basophils % (auto) 0.2 %; Eosinophils # (auto) 0.21 K/uL (0-0.5); Eosinophils % (auto) 1.9 %; Hematocrit (blood only) 38.3 % (37-47); Immature Granulocytes # (auto) 0.02 K/uL (0.00-0.02); Immature Granulocytes % (auto) 0.2 %; Lymphocytes # (auto) 2.38 K/uL (1.2-3.4); Lymphocytes % (auto) 21.3 %; Mean Corpuscular Hgb Conc 33.9 g/dL (32-36); Mean Corpuscular Volume 88.5 fL (80-100); Mean Platelet Volume 10.6 fL (7.4-10.4); Monocytes # (auto) 1.01 K/uL (0.11-0.59); Neutrophils # (auto) 7.53 K/uL (1.4-6.5); Neutrophils % (auto) 67.4 %; Platelet Count 269 K/uL (130-400); RDW Coefficient of Variation 13.9 % (11.5-14.5); RDW Standard Deviation 44.9 fL (36.4-46.3); Red Blood Count 4.33 M/uL (4.2-5.4); White Blood Count 11.17 K/uL (4.8-10.8)
[2020-09-05 00:48] LABS: Appearance Urine Clear (Clear); Bilirubin Urine Negative (Negative); Blood Urine Negative (Negative); Color Urine Yellow; Glucose Urine UA Negative (Negative); Ketones Urine Negative (Negative); Leukocyte Esterase Urine Negative (Negative); Nitrite Urine Negative (Negative); Protein Urine Negative (Negative); Specific Gravity Urine 1.017 (1.000-1.030); Urobilinogen Urine Negative (Negative); pH Urine 6.5 (4.5-7.5)
[2020-09-05 01:06] LABS: Albumin Level 3.2 gm/dl (3.4-5.0); BUN Creatinine Ratio 14.1 (10-20); Calcium 8.7 mg/dl (8.5-10.1); Creatinine Clr Calc Pharmacy 53.6 ml/min; Potassium 3.6 mmol/L (3.5-5.1)
[2020-09-05 01:10] LABS: Amphetamines+Metham, Urine Neg (Neg); Barbiturates, Urine Neg (Neg); Benzodiazepine, Urine Neg (Neg); Cocaine, Urine Neg (Neg); MDMA (Ecstacy), Urine Neg (Neg); Methadone, Urine Neg (Neg); Opiate, Urine Pos (Neg); Phencyclidine, Urine Neg (Neg)
[2020-09-05 01:16] LABS: Albumin Globulin Ratio 0.9 (0.9-2); Bilirubin,Total 0.6 mg/dl (0.2-1); Globulin 3.5 gm/dl (2.5-4.0); Thyroid Stimulating Hormone 4.38 uIu/ml (0.300-4.500); Total Protein 6.7 gm/dl (6.4-8.2)
[2020-09-05 01:22] LABS: Acetaminophen 7 ug/ml (10-30); Salicylate < 1.7 mg/dl (2.8-20)
--- NOTE | 2020-09-05 07:14 | CT Scan Report ---
HEAD CT NONCONTRAST CT DOSE: 614.27 mGy.cm HISTORY: psychiatric evaluation in elderly patient TECHNIQUE: Multiaxial CT images of the head were performed without the use of intravenous contrast. A utomated exposure control was utilized for this study. A dose lowering technique was utilized adheri ng to the principles of ALARA. Comparison: Head CT 04/19/2020. Findings: The paranasal sinuses and mastoid air cells are clear. The calvarium and skull base are int act. There is no hematoma, midline shift, acute infarct. White matter hypodensity is nonspecific but suggestive of microvascular ischemic change. The ventricles and sulci demonstrate mild age-related in volutional changes. Stable 2 cm extra-axial partially calcified mass within the left frontal region. This favors a meningioma. Impression: No significant change compared to the prior study. No acute intracranial abnormality. ACT 112: Negative or not required by law. Electronically signed by: Demetrius Caraballo M.D. 09/05/2020 7:13 AM
--- NOTE | 2020-09-05 07:15 | Emergency Department Note ---
ED Visit Note 0713: Signout from Dr. Rosa. 75-year-old female with suicidal ideation. Hemodynamically stable. Medically cleared. Awaiting psychiatric evaluation. 1442: Patient to be admitted to the psych floor .
--- NOTE | 2020-09-05 08:01 | XRay Report ---
SINGLE VIEW CHEST CLINICAL HISTORY: Preadmission testing. Medical clearance for [facility]. FINDINGS: An AP, portable, semierect chest radiograph is compared to study dated 04/19/2020 and correl ated with chest CT dated 07/03/2019. The heart is enlarged noting atherosclerotic calcification of the thoracic aorta. The pulmonary vasculature is noncongested. Chronic interstitial thickening is simila r to previous. There is bibasilar scarring/atelectasis. No airspace consolidation or large pleural ef fusion is identified. No pneumothorax is seen. The skeletal structures are osteopenic. The bony thora x is grossly intact. IMPRESSION: Cardiomegaly with no acute cardiopulmonary abnormality. ACT 112: Negative or not required by law. Electronically signed by: Henrry Vazquez M.D. 09/05/2020 8:00 AM
[2020-09-05] MEDS ORDERED: SPIRONOLACTONE 25 MG TAB PO SCH (09:00)
[2020-09-05] MEDS ORDERED: APIXABAN 5 MG TABLET PO SCH (09:00)
[2020-09-05] MEDS ORDERED: POTASSIUM CHLORIDE 10 MEQ TABCR PO SCH (09:00)
[2020-09-05] MEDS ORDERED: LEVOTHYROXINE SODIUM 25 MCG TABLET PO SCH (09:00)
[2020-09-05] MEDS ORDERED: SERTRALINE HCL 50 MG TABLET PO SCH (09:00)
[2020-09-05] MEDS ORDERED: METOPROLOL SUCC 50MG EXT REL TAB PO SCH (09:00)
[2020-09-05] MEDS ORDERED: ASPIRIN 81 MG ECTAB PO SCH (09:00)
[2020-09-05] MEDS ORDERED: ATORVASTATIN 40 MG TAB PO SCH (09:00)
[2020-09-05] MEDS ORDERED: MoRPHine SULFATE 2 MG/ML CARP IV STA (09:24)
[2020-09-05] MEDS ORDERED: DIGOXIN 0.125 MG TAB PO SCH (10:00)
--- NOTE | 2020-09-05 13:44 | Electrocardiogram Report ---
Test Reason : Blood Pressure : / mmHG Vent. Rate : 104 BPM Atrial Rate : 131 BPM P-R Int : 000 ms QRS Dur : 080 ms QT Int : 342 ms P-R-T Axes : 000 017 006 degrees QTc Int : 449 ms Atrial fibrillation with rapid ventricular response Nonspecific ST abnormality Abnormal ECG When compared with ECG of 19-APR-2020 14:34, T wave inversion no longer evident in Lateral leads Confirmed by Neo Lemus ([id number]) on 09/05/2020 1:44:09 PM Referred By: REFERRED SELF Confirmed By:Neo Lemus
[2020-09-05] MEDS ORDERED: ALUMINUM/MAGNESIUM SUSP 30 ML UDC PO PRN (13:45)
[2020-09-05] MEDS ORDERED: MAGNESIUM HYDROXIDE SUSP 30 ML UDC PO PRN (13:45)
[2020-09-05] MEDS ORDERED: SODIUM CHLORIDE 0.65% NA SOLN 45 ML (OCEAN) PRN (13:45)
[2020-09-05] MEDS ORDERED: hydrOXYzine HCl 25 MG TAB PO PRN ×2 (13:45)
[2020-09-05] MEDS ORDERED: HYDROCODONE/ACETAMOPHEN 5/325MG TAB PO PRN (13:53)
[2020-09-05] MEDS ORDERED: NITROGLYCERIN SL 0.4 MG/TAB TAB SL PRN (14:56)
[2020-09-05] MEDS ORDERED: ALBUTEROL HFA 8 GM INHALER INH PRN (14:56)
--- NOTE | 2020-09-05 15:01 | History & Physical ---
Date of Service September 05, 2020 Impression / Recommendations Impression 75-year-old patient admitted involuntarily for inpatient psychiatric treatment on 09/05/2020 after being brought to the ED on a 302 warrant for suicidal statements with plan verbalized to social worker health services. The story leading to admission does seem convoluted, despite attempts to clarify in the ED. Nonetheless, the patient admits to significant stressors at home, reports she did verbalize suicidal statements with plan to overdose on pills, and upon arrival on the unit admits that she did have suicidal thoughts in the context of an argument with her son. Regardless of whether patient truly intended to use pills to attempt to end her life, it does seem the patient was uncooperative with social worker health services and resisted presenting to the ED for evaluation. It also seems that the living situation she describes is very unsafe, and without adequate support patient would not be able to provide for her own needs. Although the patient is uncertain of the history of her sertraline prescription, she does admit to desire to increase the dose of the medication to assist with symptoms of depression and increased anxiety related to her son's family now living in her home. It has been suggested that patient open up about these situations with other supports in attempts to develop a safe discharge plan for patient's physical and mental health needs. Pt is at acute risk of self harm if discharged prematurely, and it is not clear that she would be able to provide for her most basic needs at this time without additional coordination of services. Inpatient psychiatric treatment is medically necessary at this time. Dr. Marimar Wang was directly involved in review and discussion of the patient's case and participated in medical decision making regarding treatment recommendations. (1) Verbalizes suicidal thoughts: 09/05 - Pt denies SI now; however, she does admit to passive SI during argument with son. Regardless of intent to act on suicidal statements verbalized, she did have means to follow through with reported plan to overdose on medications. - Admitted to a locked inpatient behavioral health unit, on q15 minute safety checks - Encourage medication initiation/adjustments as indicated - Encourage participation in group and recreational therapies as able - Gather collateral information from outpatient providers - Suggest family meeting to involve outpatient supports in safety planning - Arrange appropriate aftercare (2) Depression: 09/05 - Current diagnosis of unspecified depressive disorder - will attempt to gather additional information to clarify diagnosis over the course of the patient's stay. She is currently prescribed low-dose sertraline 25mg and external medication history shows previous prescriptions for buspirone and venlafaxine within the last year. Pt did agree to maximize her dose of sertraline and was willing to increase to 50mg tomorrow morning - Strongly encouraged patient to consider a family meeting with outpatient supports - pt is able to identify a sister in law who lives locally and may be supportive - Pt will be encouraged to attend group programming if able; however, will work to facilitated augmented therapeutic interventions as needed given her physical limitations. - Will need to work with patient to develop a safe and appropriate discharge plan Depression Type: unspecified Qualified Code(s): F32.9 - Major depressive disorder, single episode, unspecified (3) Permanent atrial fibrillation with rapid ventricular response: 09/05 - Continue apixaban, aspirin, digoxin, metoprolol and nitroglycerin (4) Arthritis: 09/05 - Pt with significant physical limitations related to osteoarthritis of hip - requires 2 assist OOB and will likely need significant nursing interventions during stay. May need to consider augmented therapeutic interventions based on patient's ability to ambulate to group programming as scheduled. - Pt hopeful to be able to follow-up with hip replacement surgery as scheduled in 09/2020 - Continue home dose of hydrocodone q6h prn pain - Will likely need to evaluate whether patient requires additional assistance at home, will attempt to gather further information on this - PT consult placed to evaluate for needs Protective Factors Assessment Employed: No Psychiatric History Identifying Data ANA ECKERT is a 75-year-old F who currently lives in [place], [place] with her son and his family - stating she had been living independently until Summer 2019. Pt denies previous psychiatric history, but was admitted on 09/05/20 13:45 on a 302 involuntary commitment after an altercation with her son during which the patient had verbalized suicidal statements with specific plan. Additional clarification will be needed, but it appears both parties were verbalizing these statements during the argument. Chief Complaint "Well, I'll tell you. My son just gets set off so easily." History of Present Illness Ana Eckert is a 75-year-old female admitted involuntarily for inpatient psychiatric treatment on 09/05/2020 after presenting to the ED via EMS on a 302 warrant. It was reported that the patient had been engaged in a verbal altercation with her son, when he began verbalizing suicidal statements himself. Pt told ED staff that she reacted to his statements by saying she would end her life by taking pills, expressing that she had the means available to her. It is reported that the patient called the Crisis Line to report the situation, but patient hung up and did not answer attempts to call patient back. At that time, a warrant was issued and patient was brought to the ED for further evaluation. 302 petitioning statement was completed by [facility]. mental health delegate and reads: "Ana Eckert called [facility] at 9:55 PM and during the call, Ana told this social worker health services "I have a bottle of pills here I am looking at right now and if I didn't need them, I would take them all." Upon attempting to gather more information about the nature of Ana's call, Ana became tearful and began yelling at this social worker health services. Ana ended the call. This social worker health services attempted to call Ana back but there was no answer. This social worker health services left a message requesting a call back. Ana did not call back." 302 warrant was upheld in the ED as patient did not feel she needed inpatient psychiatric treatment and disagreed that she was a threat to herself. Pt was cooperative with psychiatric assessment and stated "Well, I'll tell you. My son just gets set off so easily." Pt shares that she had been living independently until Summer 2019, when her son's family got evicted from their trailer and son "called and told me he and the family were moving in." Pt states that she had stipulations with the agreement, being that they would help care for her needs and "leave a walkway for me to get around the house." Pt states that little was done to comply with these stipulations and she feels she is not getting any assistance from the family. Pt states that the son is often resistant to helping the patient when asked, and tasks are often pushed onto his three teenage boys. The patient states that when her son is overwhelmed or asked to do something, he will say "I might as well go in the garage and kill myself". The patient reports the argument leading to her admission was related to the son not reasonably fulfilling her request to fix the wheel of her walker. When the wheel broke again, an argument broke out. Pt state her son again threatened to go in the garage and kill himself. Pt states "so I told him, '' Well, I have a bottle of pills, so I'll do it right here'." Pt states to this provider that she did not intent to take the pills, but she is now admitting that she was having passive SI at that time, "wishing it would all just end." Pt admits that she did call Crisis herself, to report the situation as she feared for her son's life. It is the patient's perception that the fire crew worker was unhelpful, so she hung up the phone. Pt states that when the social worker health services called back her son answer the phone - "and he's a smooth talker." She states that he "twisted the story" to make it seem as though the patient was suicidal. Nonetheless, when police arrived, patient was unwilling to cooperate with recommendation she present to the ED for evaluation. Based on patient's reports of her home situation and concern for very poor mobility, the safety of the patient in her home is not entirely clear. Pt states that she is embarrassed for her family to see her home now that her son's family has moved in. She admits she has not disclosed most of this stress to any of her supports. She reports isolating and sleeping to escape her frustration. Pt denies previous psychiatric history and is unable to provide information related to a history of previous psychotropic prescriptions. Pt denied other needs at this time. Past Psychiatric History Current Psychiatric Diagnosis: None Outpatient Services: None recently. She states she did have 3 sessions of outpatient therapy in [place] within the last year, but is unable to recall the provider she met with. Previous Psych Admissions: Denied History of Previous Suicide Attempt: No Past Medication Trials: External medication history suggests previous prescriptions for: venlafaxine, buspirone, and sertraline. Past Head Trauma/Neuro History History of Concussion/Seizure: No Allergies Allergy/AdvReac Type Severity Reaction Status Date / Time adhesive Allergy Unknown HEAVIER Verified 09/05/20 01:28 SURG TAPE-REDNESS SORE SKIN cat dander Allergy Unknown ITCHY Verified 09/05/20 01:28 NOSE, ITCHY EYES,RUNNY NOSE grass pollen-perennial rye, Allergy Unknown GRASS,MOLD-ITCHY Verified 09/05/20 01:28 standar EYES RUNNY NOSE latex Allergy Unknown CONTACT Verified 09/05/20 01:28 DERMATITIS tetanus toxoid, adsorbed Allergy Unknown SWELLING Verified 09/05/20 01:28 AT SITE KOLE Inhibitors AdvReac Unknown COUGH Unverified 09/05/20 01:28 Home Medications Medication Instructions Recorded Confirmed Type gabapentin 300 mg PO HS 07/03/19 09/05/20 History apixaban 5 mg tablet 5 mg PO BID 08/19/19 09/05/20 History levothyroxine 25 mcg PO QAM 08/27/19 09/05/20 History atorvastatin 40 mg PO QAM #30 tab 09/02/19 09/05/20 Rx nitroglycerin [Nitrostat] 0.4 mg SUBLINGUAL Q5M PRN #25 tab 09/02/19 09/05/20 Rx digoxin 125 mcg PO 3XWK 04/19/20 09/05/20 History potassium chloride 10 meq PO DAILY 04/19/20 09/05/20 History sertraline 25 mg PO QAM 04/19/20 09/05/20 History spironolactone 25 mg PO QAM 04/19/20 09/05/20 History albuterol sulfate [Ventolin HFA] 1 inh INHALATION QID PRN 05/19/20 09/05/20 History hydrocodone-acetaminophen 1 tab PO Q6 PRN 05/19/20 09/05/20 History aspirin [Aspirin Low Dose] 81 mg PO DAILY 09/05/20 09/05/20 History metoprolol succinate 100 mg PO BID 09/05/20 09/05/20 History Family History Family History of: Doesn't Know Alcohol History Hx of Alcohol Use Over the Past 12 Months: No Smoking Use Smoking Status: Never smoker Substance History Hx of Prescription Med Misuse Over the Past 12 Months: No Hx of Over the Counter Med Misuse Over the Past 12 Months: No Hx of Inhalent Misuse Over the Past 12 Months: No Hx of Organic Substance Use Over the Past 12 Months: No Hx of Illegal Substances/Street Drug Use Over Past 12 Months: No Personal History Living Arrangements: Home (in [place]) Living Arrangements Comments: Patient's son, son's significant other, and son's 4 children recently moved into the home as well Employment Status: Retired Marital Status: Beliefs That Will Affect Care: None Hx Legal Problems: No Patient History Medical History Anxiety Arthritis Asthma rescue inhaler weekly PRN Atrial fibrillation hx cardioversion (unsuccessful) Chronic diastolic heart failure Coronary artery disease 08/31/19 thrombus RCA, PCI with JAILENE Depression Dyslipidemia History of cardioversion History of DVT (deep vein thrombosis) ~1999. Hx of breast cancer left Hypertension Hypothyroidism Kidney stones Prediabetes Scoliosis Urinary tract infection 04/19/20 treated at [facility] -- [facility] hallucinations and further treatment for ~1 week. currently at home. Surgical History History of bilateral tubal ligation History of cataract surgery bilateral History of section x2 History of colonoscopy History of left knee replacement History of right knee joint replacement Hx of lumpectomy Left lumpectomy with lymph node removal S/P bunionectomy bilateral S/P left inguinal hernia repair x2 S/P QUINCY-BSO Status post coronary artery stent placement 08/31/19 thrombus RCA, PCI with JAILENE ([facility]). Follows with Sara Nunez. Status post lumbar surgery [facility] Family History Other Heart disease No family history of adverse response to anesthesia Social History Smoking Status: Never smoker Second Hand Exposure: Yes (hx); Hx Alcohol Use: Yes Alcohol type: wine Hx Substance Use: No Preferred Language: Montserratian Communication Ability: Effective Dean Required: No Beliefs That Will Affect Care: None Current Living Situation: Family Current Living Situation Comment: w/ son Feels Safe at Home: Yes Assistive Devices: Cane, Glasses and Walker Review of Systems Review of Systems: Constitutional: reports fatigue Cardiovascular: denied Respiratory: denied Gastrointestinal: denied Neurological: denied Musculoskeletal: reports significant hip/leg pain Psychiatric: denies symptoms other than stated above Total of at least 10 systems reviewed, pertinent positives as above and in HPI. Physical Exam Psychiatric: Orientation: alert, oriented x 3 and cooperative Apperance: a ppropriately dressed, appropriately groomed and appeared stated age Obese appearing female, laying in bed appearing to be in moderate pain. Pt is appropriately dressed in hospital gown. Short gonzalez hair appearing clean and decently styled. Level of hygiene appears adequate. Eye Contact: + fair eye contact Motor Behavior: no abnormal motor movements (observed while laying down in bed) Speech: normal rate/rhythm/volume of speech Affect: + depressed affect, + tearful affect and mood congruent with affect Mood: + depressed mood and + anxious mood Thought Process: goal directed thought process and clear/coherent thought process Thought Content: reality based without delusions and + hopelessness Suicidal Thoughts: denies suicidal thoughts and denies suicidal intent states she has intermittent passive SI related to situational stressors, but denies active SI or intent to harm self. Homicidal Thoughts: denies homicidal thoughts Hallucinations: no auditory hallucinations and no visual hallucinations Cognition: recent memory grossly intact, attention grossly intact and language grossly intact Estimated Intelligence: consistent with education level Insight: + fair insight Judgement: + fair judgement Vital Signs (Past 24 Hours): Last Vital Signs Temp 37 C 09/05/20 00:16 Pulse 88 09/05/20 10:09 Resp 18 09/05/20 09:48 BP 133/84 09/05/20 09:48 Pulse Ox 99 09/05/20 09:48 Exam Statement: A physical exam was performed in the ER prior to admission to the unit by Dr. Nehemiah Rosa MD. I accept that physical as correct/medical clearance for the inpatient physical exam. Results & Data ([facility]) Laboratory Results Laboratory Results - last 24 hr 09/05/20 09/05/20 09/05/20 00:20 00:20 00:20 WBC RBC Hgb Hct MCV MCH MCHC RDW Std Deviation RDW Coeff of Stephan Plt Count MPV Immature Gran % (Auto) Neut % (Auto) Lymph % (Auto) [place] % (Auto) Eos % (Auto) Baso % (Auto) Neut # (Auto) Lymph # (Auto) [place] # (Auto) Eos # (Auto) Baso # (Auto) Immature Gran # (Auto) Sodium Potassium Chloride Carbon Dioxide Anion Gap BUN Creatinine Est Cr Clr Drug Dosing Est GFR ( Amer) Est GFR (Non-Af Amer) BUN/Creatinine Ratio Glucose Calcium Total Bilirubin AST ALT Alkaline Phosphatase Total Protein Albumin Globulin Albumin/Globulin Ratio TSH Urine Color Yellow Urine Appearance Clear Urine pH 6.5 Ur Specific Arboles 1.017 Urine Protein Negative Urine Glucose (UA) Negative Urine Ketones Negative Urine Blood Negative Urine Nitrite Negative Urine Bilirubin Negative Urine Urobilinogen Negative Ur Leukocyte Esterase Negative Digoxin Salicylates Urine Opiates Screen Pos H U Codeine Confrm GC/MS Pending Ur Morphine (GC/MS) Pending Ur Hydrocodone (GC/MS) Pending Ur Norhydrocodone Pending Ur Noroxycodone Pending Urine Oxycodone (GC/MS) Pending U Oxymorphone GC/MS Pending Ur Methadone, Qual Neg Ur Hydromorphone (GC/MS) Pending Acetaminophen Urine Barbiturates Neg Ur Phencyclidine (PCP) Neg U Amphetamin/Meth Scrn Neg MDMA (Ecstasy) Screen Neg U Benzodiazepines Scrn Neg Ur Cocaine Metabolite Neg U Marijuana (THC) Screen Neg Drug Screen Comment Pending Ethyl Alcohol mg/dL COVID-19 Eval Order SARS-CoV-2, RNA, NAAT 09/05/20 09/05/20 09/05/20 00:28 00:28 00:28 WBC 11.17 H RBC 4.33 Hgb 13.0 Hct 38.3 MCV 88.5 MCH 30.0 MCHC 33.9 RDW Std Deviation 44.9 RDW Coeff of Stephan 13.9 Plt Count 269 MPV 10.6 H Immature Gran % (Auto) 0.2 Neut % (Auto) 67.4 Lymph % (Auto) 21.3 Culberson % (Auto) 9.0 Eos % (Auto) 1.9 Baso % (Auto) 0.2 Neut # (Auto) 7.53 H Lymph # (Auto) 2.38 Culberson # (Auto) 1.01 H Eos # (Auto) 0.21 Baso # (Auto) 0.02 Immature Gran # (Auto) 0.02 Sodium 143 Potassium 3.6 Chloride 112 H Carbon Dioxide 25 Anion Gap 6.0 BUN 13 Creatinine 0.90 Est Cr Clr Drug Dosing 53.6 Est GFR ( Amer) 73.0 Est GFR (Non-Af Amer) 63.0 BUN/Creatinine Ratio 14.1 Glucose 102 H Calcium 8.7 Total Bilirubin 0.6 AST 20 ALT 32 Alkaline Phosphatase 100 Total Protein 6.7 Albumin 3.2 L Globulin 3.5 Albumin/Globulin Ratio 0.9 TSH 4.380 Urine Color Urine Appearance Urine pH Ur Specific Arboles Urine Protein Urine Glucose (UA) Urine Ketones Urine Blood Urine Nitrite Urine Bilirubin Urine Urobilinogen Ur Leukocyte Esterase Digoxin Salicylates < 1.7 L Urine Opiates Screen U Codeine Confrm GC/MS Ur Morphine (GC/MS) Ur Hydrocodone (GC/MS) Ur Norhydrocodone Ur Noroxycodone Urine Oxycodone (GC/MS) U Oxymorphone GC/MS Ur Methadone, Qual Ur Hydromorphone (GC/MS) Acetaminophen 7 L Urine Barbiturates Ur Phencyclidine (PCP) U Amphetamin/Meth Scrn MDMA (Ecstasy) Screen U Benzodiazepines Scrn Ur Cocaine Metabolite U Marijuana (THC) Screen Drug Screen Comment Ethyl Alcohol mg/dL COVID-19 Eval Order SARS-CoV-2, RNA, NAAT 09/05/20 09/05/20 09/05/20 00:28 00:28 03:30 WBC RBC Hgb Hct MCV MCH MCHC RDW Std Deviation RDW Coeff of Stephan Plt Count MPV Immature Gran % (Auto) Neut % (Auto) Lymph % (Auto) [place] % (Auto) Eos % (Auto) Baso % (Auto) Neut # (Auto) Lymph # (Auto) [place] # (Auto) Eos # (Auto) Baso # (Auto) Immature Gran # (Auto) Sodium Potassium Chloride Carbon Dioxide Anion Gap BUN Creatinine Est Cr Clr Drug Dosing Est GFR ( Amer) Est GFR (Non-Af Amer) BUN/Creatinine Ratio Glucose Calcium Total Bilirubin AST ALT Alkaline Phosphatase Total Protein Albumin Globulin Albumin/Globulin Ratio TSH Urine Color Urine Appearance Urine pH Ur Specific Arboles Urine Protein Urine Glucose (UA) Urine Ketones Urine Blood Urine Nitrite Urine Bilirubin Urine Urobilinogen Ur Leukocyte Esterase Digoxin 0.4 L Salicylates Urine Opiates Screen U Codeine Confrm GC/MS Ur Morphine (GC/MS) Ur Hydrocodone (GC/MS) Ur Norhydrocodone Ur Noroxycodone Urine Oxycodone (GC/MS) U Oxymorphone GC/MS Ur Methadone, Qual Ur Hydromorphone (GC/MS) Acetaminophen Urine Barbiturates Ur Phencyclidine (PCP) U Amphetamin/Meth Scrn MDMA (Ecstasy) Screen U Benzodiazepines Scrn Ur Cocaine Metabolite U Marijuana (THC) Screen Drug Screen Comment Ethyl Alcohol mg/dL < 3.0 COVID-19 Eval Order Covid19 IDNow atMDEC SARS-CoV-2, RNA, NAAT 09/05/20 03:30 WBC RBC Hgb Hct MCV MCH MCHC RDW Std Deviation RDW Coeff of Stephan Plt Count MPV Immature Gran % (Auto) Neut % (Auto) Lymph % (Auto) [place] % (Auto) Eos % (Auto) Baso % (Auto) Neut # (Auto) Lymph # (Auto) [place] # (Auto) Eos # (Auto) Baso # (Auto) Immature Gran # (Auto) Sodium Potassium Chloride Carbon Dioxide Anion Gap BUN Creatinine Est Cr Clr Drug Dosing Est GFR ( Amer) Est GFR (Non-Af Amer) BUN/Creatinine Ratio Glucose Calcium Total Bilirubin AST ALT Alkaline Phosphatase Total Protein Albumin Globulin Albumin/Globulin Ratio TSH Urine Color Urine Appearance Urine pH Ur Specific Arboles Urine Protein Urine Glucose (UA) Urine Ketones Urine Blood Urine Nitrite Urine Bilirubin Urine Urobilinogen Ur Leukocyte Esterase Digoxin Salicylates Urine Opiates Screen U Codeine Confrm GC/MS Ur Morphine (GC/MS) Ur Hydrocodone (GC/MS) Ur Norhydrocodone Ur Noroxycodone Urine Oxycodone (GC/MS) U Oxymorphone GC/MS Ur Methadone, Qual Ur Hydromorphone (GC/MS) Acetaminophen Urine Barbiturates Ur Phencyclidine (PCP) U Amphetamin/Meth Scrn MDMA (Ecstasy) Screen U Benzodiazepines Scrn Ur Cocaine Metabolite U Marijuana (THC) Screen Drug Screen Comment Ethyl Alcohol mg/dL COVID-19 Eval Order SARS-CoV-2, RNA, NAAT NEGATIVE Current Inpatient Medications Current Inpatient Medications: Current Inpatient Medications Hydrocodone Bitart/Acetaminophen (Hydrocodone/Acetamophen 5/325mg Tab) 1 tab PO Q6 PRN PRN Reason: Pain Stop: 09/19/20 14:59 Al Hydrox/Mg Hydrox/Simethicone (Aluminum/Magnesium Susp 30 Ml Udc) 30 ml PO Q4H PRN PRN Reason: GI Upset Stop: 10/05/20 13:44 Albuterol (Albuterol Hfa 8 Gm Inhaler) 1 puffs INH Q6R PRN PRN Reason: sob Stop: 10/05/20 14:55 Apixaban (Apixaban 5 Mg Tablet) 5 mg PO BID DAO Stop: 10/05/20 20:59 Aspirin (Aspirin 81 Mg Ectab) 81 mg PO DAILY [facility] Stop: 10/06/20 08:59 Atorvastatin Calcium (Atorvastatin 40 Mg Tab) 40 mg PO QAM [facility] Stop: 10/06/20 08:59 Digoxin (Digoxin 0.125 Mg Tab) 0.125 mg PO MoWeFr DAO Stop: 10/05/20 14:59 Gabapentin (Gabapentin 300 Mg Cap) 300 mg PO HS DAO Stop: 10/05/20 21:59 Hydroxyzine HCl (Hydroxyzine Hcl 25 Mg Tab) 50 mg PO HSZ PRN PRN Reason: Insomnia Stop: 10/05/20 13:44 Hydroxyzine HCl (Hydroxyzine Hcl 25 Mg Tab) 25 mg PO Q4H PRN PRN Reason: Anxiety Stop: 10/05/20 13:44 Levothyroxine Sodium (Levothyroxine Sodium 25 Mcg Tablet) 25 mcg PO QAM [facility] Stop: 10/06/20 08:59 Magnesium Hydroxide (Magnesium Hydroxide Susp 30 Ml Udc) 30 ml PO DAILY PRN PRN Reason: Constipation Stop: 10/05/20 13:44 Nitroglycerin (Nitroglycerin Sl 0.4 Mg/Tab Tab) 0.4 mg SL Q5M PRN PRN Reason: chest pain Stop: 10/05/20 14:55 Sodium Chloride (Sodium Chloride 0.65% Na Soln 45 Ml (Cobb)) 1 - 2 sprays NA PRN PRN PRN Reason: Nasal Dryness/Congestion Stop: 10/05/20 13:44
[2020-09-05] MEDS: METOPROLOL SUCC 50MG EXT REL TAB PO SCH (20:19)
[2020-09-05] MEDS: GABAPENTIN 300 MG CAP PO SCH (20:20)
[2020-09-05] MEDS: APIXABAN 5 MG TABLET PO SCH (20:20)
[2020-09-05] MEDS: HYDROCODONE/ACETAMOPHEN 5/325MG TAB PO PRN (20:21)
[2020-09-05] MEDS ORDERED: GABAPENTIN 300 MG CAP PO SCH (21:00)
--- NOTE | 2020-09-06 07:58 | Psychiatric Progress Note ---
Date of Service September 06, 2020 Impression / Recommendations Impression 75-year-old patient admitted involuntarily for inpatient psychiatric treatment on 09/05/2020 after being brought to the ED on a 302 warrant for suicidal statements with plan verbalized to wood processing worker. The story leading to admission does seem convoluted, despite attempts to clarify in the ED. Nonetheless, the patient admits to significant stressors at home, reports she did verbalize suicidal statements with plan to overdose on pills, and upon arrival on the unit admits that she did have suicidal thoughts in the context of an argument with her son. Regardless of whether patient truly intended to use pills to attempt to end her life, it does seem the patient was uncooperative with wood processing worker and resisted presenting to the ED for evaluation. It also seems that the living situation she describes is very unsafe, and without adequate support patient would not be able to provide for her own needs. Although the patient is uncertain of the history of her sertraline prescription, she does admit to desire to increase the dose of the medication to assist with symptoms of depression and increased anxiety related to her son's family now living in her home. It has been suggested that patient open up about these situations with other supports in attempts to develop a safe discharge plan for patient's physical and mental health needs. Pt is at acute risk of self harm if discharged prematurely, and it is not clear that she would be able to provide for her most basic needs at this time without additional coordination of services. Inpatient psychiatric treatment is medically necessary at this time. (1) Verbalizes suicidal thoughts: 09/05 - Pt denies SI now; however, she does admit to passive SI during argument with son. Regardless of intent to act on suicidal statements verbalized, she did have means to follow through with reported plan to overdose on medications. - Admitted to a locked inpatient behavioral health unit, on q15 minute safety checks - Encourage medication initiation/adjustments as indicated - Encourage participation in group and recreational therapies as able - Gather collateral information from outpatient providers - Suggest family meeting to involve outpatient supports in safety planning - Arrange appropriate aftercare 09/06 - Patient denying SI now, reporting these thoughts occurred when arguing with her son and feeling overwhelmed with the situation and his behavior. - Continue to attend groups and work on coping skills and safety plan. Encouraged to involve her supports, including her brother and sister. (2) Depression: 09/05 - Current diagnosis of unspecified depressive disorder - will attempt to gather additional information to clarify diagnosis over the course of the patient's stay. She is currently prescribed low-dose sertraline 25mg and external medication history shows previous prescriptions for buspirone and venlafaxine within the last year. Pt did agree to maximize her dose of sertraline and was willing to increase to 50mg tomorrow morning - Strongly encouraged patient to consider a family meeting with outpatient supports - pt is able to identify a sister in law who lives locally and may be supportive - Pt will be encouraged to attend group programming if able; however, will work to facilitated augmented therapeutic interventions as needed given her physical limitations. - Will need to work with patient to develop a safe and appropriate discharge plan 09/06 - Continue sertraline, explore options for supportive therapy. - Coordinate with [facility]OA who have been involved. Recommend meeting with son and possibly her sister or brother as well, for assistance in setting boundaries with her son. (3) Permanent atrial fibrillation with rapid ventricular response: 09/05 - Continue apixaban, aspirin, digoxin, metoprolol and nitroglycerin (4) Arthritis: 09/05 - Pt with significant physical limitations related to osteoarthritis of hip - requires 2 assist OOB and will likely need significant nursing interventions during stay. May need to consider augmented therapeutic interventions based on patient's ability to ambulate to group programming as scheduled. - Pt hopeful to be able to follow-up with hip replacement surgery as scheduled in 09/2020 - Continue home dose of hydrocodone q6h prn pain - Will likely need to evaluate whether patient requires additional assistance at home, will attempt to gather further information on this - PT consult placed to evaluate for needs Risk Factors Assessment Male: No : Yes Do You Have Access To A Gun?: No Health Problems: Yes Mental Health Diagnoses: Yes Substance Use Disorders: No Family History of Suicide: No Previous Psychiatric Hospitalization: No Hopelessness: No Smoker: No Protective Factors Assessment : No Responsible for Young Children: No Employed: No Stable Relationships: Yes Supportive Family: Yes Good Rapport with Provider: Yes Interval History Identifying Information LISA THOMAS is a 75-year-old F who currently lives in [place], [place] with her son and his family, denies previous psychiatric history but is prescribed sertraline, and was admitted on 09/05/20 13:45 on a 302 involuntary commitment after an altercation with her son during which the patient had verbalized suicidal statements with specific plan. Chief Complaint "Oh I've been waiting to see you". Review of Systems Sleep Information Total Hours of Sleep: 7.75 Meal Information Percent Meal Consumed - Dinner: 25 Subjective Subjective Patient was seen & assessed and interval progress reviewed with nursing and social work. Staff report she is denying SI and is processing stressors with her son and his family, who have been staying with her. She identified a sister as her primary support. She is requiring 2 person assist in the unit, and PT/OT consults have been requested. On my assessment, she was seen in her room where she had returned to bed to rest due to hip pain. She is supposed to have surgery in Sep. and has been having difficulty getting around due to pain. She reports distress due to her son's behavior, stating she has been telling him for months that he and his girlfriend and their children and dogs need to get their own place and move out, but he is refusing to leave, saying it is all going to be his when she dies so she can't make him leave. She denies SI and says mood is "not too bad, if I could just stay away from my son, I'd be fine, that's what this is all about." She says he refuses to move out when she asks him to, and if she pushes him, he threatens to kill himself. She is overwhelmed by him, his girlfriend, her 3 children and his child, and their 2 dogs have all been staying at her house for 8 months. She said he only works 1-2 days a week, and used to use drugs, but now just uses marijuana. She feels it is her fault for enabling him and always giving into him. He tries to make her feel guilty, accuses her of saying things she didn't say, like she wished he would have in a car accident instead of his brother. She feels she "just needs to stand up to him," but isn't sure how to do that. Reports good support from her sister and brother, who live nearby. She is not sure how the Office of Aging got involved, but says they dropped off some information for her to help her "stand up for myself." She would like to have a meeting with the older adult social work specialist and her son. Physical Exam Psychiatric Orientation: alert and cooperative Apperance: appropriately dressed, appropriately groomed and appeared stated age Lying in bed awake, in NAD Eye Contact: + fair eye contact Motor Behavior: no abnormal motor movements Speech: normal rate/rhythm/volume of speech Affect: + anxious affect "okay" Thought Process: goal directed thought process and linear/logical thought process Thought Content: reality based without delusions Suicidal Thoughts: denies suicidal thoughts Homicidal Thoughts: denies homicidal thoughts Hallucinations: no auditory hallucinations Cognition: recent memory grossly intact, attention grossly intact and language grossly intact Estimated Intelligence: average estimated intelligence Insight: + fair insight Judgement: + fair judgement Vital Signs (Past 24 Hours) Last Vital Signs Temp 36.6 C 09/06/20 06:00 Pulse 86 09/06/20 06:38 Resp 18 09/06/20 06:00 BP 148/93 H 09/06/20 06:38 Pulse Ox 98 09/05/20 17:25 Results & Data ([facility]) Current Inpatient Medications Current Inpatient Medications: Current Inpatient Medications Hydrocodone Bitart/Acetaminophen (Hydrocodone/Acetamophen 5/325mg Tab) 1 tab PO Q6 PRN PRN Reason: Pain Stop: 09/19/20 14:59 Last Admin: 09/05/20 20:21 Dose: 1 tab Documented by: Al Hydrox/Mg Hydrox/Simethicone (Aluminum/Magnesium Susp 30 Ml Udc) 30 ml PO Q4H PRN PRN Reason: GI Upset Stop: 10/05/20 13:44 Albuterol (Albuterol Hfa 8 Gm Inhaler) 1 puffs INH Q6R PRN PRN Reason: sob Stop: 10/05/20 14:55 Apixaban (Apixaban 5 Mg Tablet) 5 mg PO BID DAO Stop: 10/05/20 20:59 Last Admin: 09/05/20 20:20 Dose: 5 mg Documented by: Aspirin (Aspirin 81 Mg Ectab) 81 mg PO DAILY [facility] Stop: 10/06/20 08:59 Atorvastatin Calcium (Atorvastatin 40 Mg Tab) 40 mg PO QAM DAO Stop: 10/06/20 08:59 Digoxin (Digoxin 0.125 Mg Tab) 0.125 mg PO MoWeFr@0900 DAO Stop: 10/07/20 08:59 Gabapentin (Gabapentin 300 Mg Cap) 300 mg PO HS DOA Stop: 10/05/20 21:59 Last Admin: 09/05/20 20:20 Dose: 300 mg Documented by: Hydroxyzine HCl (Hydroxyzine Hcl 25 Mg Tab) 50 mg PO HSZ PRN PRN Reason: Insomnia Stop: 10/05/20 13:44 Hydroxyzine HCl (Hydroxyzine Hcl 25 Mg Tab) 25 mg PO Q4H PRN PRN Reason: Anxiety Stop: 10/05/20 13:44 Levothyroxine Sodium (Levothyroxine Sodium 25 Mcg Tablet) 25 mcg PO DAILYBB DAO Stop: 10/06/20 07:59 Magnesium Hydroxide (Magnesium Hydroxide Susp 30 Ml Udc) 30 ml PO DAILY PRN PRN Reason: Constipation Stop: 10/05/20 13:44 Metoprolol Succinate (Metoprolol Succ 50mg Ext Rel Tab) 100 mg PO BID DAO Stop: 10/05/20 20:59 Last Admin: 09/05/20 20:19 Dose: 100 mg Documented by: Nitroglycerin (Nitroglycerin Sl 0.4 Mg/Tab Tab) 0.4 mg SL Q5M PRN PRN Reason: chest pain Stop: 10/05/20 14:55 Potassium Chloride (Potassium Chloride 10 Meq Tabcr) 10 meq PO DAILY DAO Stop: 10/06/20 08:59 Sertraline HCl (Sertraline Hcl 50 Mg Tablet) 50 mg PO QAM DAO Stop: 10/06/20 08:59 Sodium Chloride (Sodium Chloride 0.65% Na Soln 45 Ml ([place])) 1 - 2 sprays NA PRN PRN PRN Reason: Nasal Dryness/Congestion Stop: 10/05/20 13:44 Spironolactone (Spironolactone 25 Mg Tab) 25 mg PO QAM DAO Stop: 10/06/20 08:59 Mental Health & Subst Abuse Tx Therapist Name of Therapist: None Creative Producer Name of Creative Producer: None Post Discharge Appointments Primary Care Physician Name Of Family Doctor: Selena (1) Depression Depression Type: unspecified Qualified Code(s): F32.9 - Major depressive disorder, single episode, unspecified
[2020-09-06] MEDS: SPIRONOLACTONE 25 MG TAB PO SCH (08:33)
[2020-09-06] MEDS: LEVOTHYROXINE SODIUM 25 MCG TABLET PO SCH (08:33)
[2020-09-06] MEDS: ASPIRIN 81 MG ECTAB PO SCH (08:33)
[2020-09-06] MEDS: APIXABAN 5 MG TABLET PO SCH ×2 (08:34→20:39)
[2020-09-06] MEDS: METOPROLOL SUCC 50MG EXT REL TAB PO SCH ×2 (08:34→20:39)
[2020-09-06] MEDS: POTASSIUM CHLORIDE 10 MEQ TABCR PO SCH (08:34)
[2020-09-06] MEDS: ATORVASTATIN 40 MG TAB PO SCH (08:34)
[2020-09-06] MEDS: SERTRALINE HCL 50 MG TABLET PO SCH (08:34)
[2020-09-06] MEDS ORDERED: SERTRALINE HCL 50 MG TABLET PO SCH (09:00)
[2020-09-06] MEDS: HYDROCODONE/ACETAMOPHEN 5/325MG TAB PO PRN ×2 (10:48→20:43)
[2020-09-06] MEDS: GABAPENTIN 300 MG CAP PO SCH (20:40)
[2020-09-07 04:26] LABS: Codeine Urine NEGATIVE ng/mL (<50); Hydrocodone Urine 1200 ng/mL (<50); Hydromor Urine 287 ng/mL (<50); Morphine Urine NEGATIVE ng/mL (<50); Norhydrocodone Conf Ur 783 ng/mL (<50); Noroxycodone Urine NEGATIVE ng/mL (<50); Oxycodone Urine NEGATIVE ng/mL (<50); Oxymorph Urine NEGATIVE ng/mL (<50)
[2020-09-07] MEDS: LEVOTHYROXINE SODIUM 25 MCG TABLET PO SCH (09:30)
[2020-09-07] MEDS: ASPIRIN 81 MG ECTAB PO SCH (09:33)
[2020-09-07] MEDS: SPIRONOLACTONE 25 MG TAB PO SCH (09:33)
[2020-09-07] MEDS: DIGOXIN 0.125 MG TAB PO SCH (09:34)
[2020-09-07] MEDS: APIXABAN 5 MG TABLET PO SCH ×2 (09:34→20:32)
[2020-09-07] MEDS: ATORVASTATIN 40 MG TAB PO SCH (09:34)
[2020-09-07] MEDS: POTASSIUM CHLORIDE 10 MEQ TABCR PO SCH (09:34)
[2020-09-07] MEDS: METOPROLOL SUCC 50MG EXT REL TAB PO SCH ×2 (09:35→20:31)
[2020-09-07] MEDS: SERTRALINE HCL 50 MG TABLET PO SCH (09:35)
[2020-09-07] MEDS: HYDROCODONE/ACETAMOPHEN 5/325MG TAB PO PRN ×2 (09:39→20:33)
--- NOTE | 2020-09-07 10:02 | Psychiatric Progress Note ---
Date of Service September 07, 2020 Impression / Recommendations Impression 75-year-old patient admitted involuntarily for inpatient psychiatric treatment on 09/05/2020 after being brought to the ED on a 302 warrant for suicidal statements with plan verbalized to floor worker. The story leading to admission does seem convoluted, despite attempts to clarify in the ED. Nonetheless, the patient admits to significant stressors at home, reports she did verbalize suicidal statements with plan to overdose on pills, and upon arrival on the unit admits that she did have suicidal thoughts in the context of an argument with her son. Regardless of whether patient truly intended to use pills to attempt to end her life, it does seem the patient was uncooperative with floor worker and resisted presenting to the ED for evaluation. It also seems that the living situation she describes is very unsafe, and without adequate support patient would not be able to provide for her own needs. Although the patient is uncertain of the history of her sertraline prescription, she does admit to desire to increase the dose of the medication to assist with symptoms of depression and increased anxiety related to her son's family now living in her home. It has been suggested that patient open up about these situations with other supports in attempts to develop a safe discharge plan for patient's physical and mental health needs. Pt is at acute risk of self harm if discharged prematurely, and it is not clear that she would be able to provide for her most basic needs at this time without additional coordination of services. Inpatient psychiatric treatment is medically necessary at this time. (1) Verbalizes suicidal thoughts: 09/05 - Pt denies SI now; however, she does admit to passive SI during argument with son. Regardless of intent to act on suicidal statements verbalized, she did have means to follow through with reported plan to overdose on medications. - Admitted to a locked inpatient behavioral health unit, on q15 minute safety checks - Encourage medication initiation/adjustments as indicated - Encourage participation in group and recreational therapies as able - Gather collateral information from outpatient providers - Suggest family meeting to involve outpatient supports in safety planning - Arrange appropriate aftercare 09/06 - Patient denying SI now, reporting these thoughts occurred when arguing with her son and feeling overwhelmed with the situation and his behavior. - Continue to attend groups and work on coping skills and safety plan. Encouraged to involve her supports, including her brother and sister. 09/07 - Pt continues to deny SI. Focus at this point it on development of a safety plan and inclusion of positive supports that can offer additional assistance to the patient. Pt has numerous meetings planned to coordinate support and services for discharge. (2) Depression: 09/05 - Current diagnosis of unspecified depressive disorder - will attempt to gather additional information to clarify diagnosis over the course of the patient's stay. She is currently prescribed low-dose sertraline 25mg and external medication history shows previous prescriptions for buspirone and venlafaxine within the last year. Pt did agree to maximize her dose of sertraline and was willing to increase to 50mg tomorrow morning - Strongly encouraged patient to consider a family meeting with outpatient supports - pt is able to identify a sister in law who lives locally and may be supportive - Pt will be encouraged to attend group programming if able; however, will work to facilitated augmented therapeutic interventions as needed given her physical limitations. - Will need to work with patient to develop a safe and appropriate discharge plan 09/06 - Continue sertraline, explore options for supportive therapy. - Coordinate with OOA who have been involved. Recommend meeting with son and possibly her sister or brother as well, for assistance in setting boundaries with her son. 09/07 - Continue treatment plan as above - Meeting with son today, [facility]ging Zoom meeting tomorrow, and patient is hopeful for meeting with her [id number] as well - Pt admits to still feeling nervous about returning home, will likely need assistance with setting appropriate boundaries with her son and opening up to supports about her current needs (3) Permanent atrial fibrillation with rapid ventricular response: 09/05 - Continue apixaban, aspirin, digoxin, metoprolol and nitroglycerin (4) Arthritis: 09/05 - Pt with significant physical limitations related to osteoarthritis of hip - requires 2 assist OOB and will likely need significant nursing interventions during stay. May need to consider augmented therapeutic interventions based on patient's ability to ambulate to group programming as scheduled. - Pt hopeful to be able to follow-up with hip replacement surgery as scheduled in 09/2020 - Continue home dose of hydrocodone q6h prn pain - Will likely need to evaluate whether patient requires additional assistance at home, will attempt to gather further information on this - PT consult placed to evaluate for needs 09/07 - PT/OT consultations completed - primary recommendation is for more frequent, low-impact movement throughout the day. Heat/cold and consideration for an NSAID was suggested. - Pt does seem to be improving with regard to mobility, admitting that she had been more sedentary at home as "I just wanted to stay out of the way." Pt reports appreciation for being pushed to be more active Risk Factors Assessment Male: No : Yes Do You Have Access To A Gun?: No Health Problems: Yes Mental Health Diagnoses: Yes Substance Use Disorders: No Family History of Suicide: No Previous Psychiatric Hospitalization: No Hopelessness: No Smoker: No Protective Factors Assessment : No Responsible for Young Children: No Employed: No Stable Relationships: Yes Supportive Family: Yes Good Rapport with Provider: Yes Interval History Identifying Information LISA THOMAS is a 75-year-old F who currently lives in [place], [place] with her son and his family, denies previous psychiatric history but is prescribed sertraline, and was admitted on 09/05/20 13:45 on a 302 involuntary commitment after an altercation with her son during which the patient had verbalized suicidal statements with specific plan. Chief Complaint "I was doing really good, but now I'm thinking about this meeting." Review of Systems Notes Constitutional: denied Cardiovascular: denied Respiratory: denied Gastrointestinal: denied Neurological: denied Musculoskeletal: reports ongoing hip pain, improvement in strength/mobility Psychiatric: denies symptoms other than stated above Total of at least 10 systems reviewed, pertinent positives as above and in HPI. Sleep Information Total Hours of Sleep: 7.5 Meal Information Percent Meal Consumed - Dinner: 100 Subjective Subjective Patient was seen & assessed and interval progress reviewed with treatment team. Staff report the patient has been participating in programming and has been very pleasant. She has a meeting scheduled with her son for this afternoon. There is also a meeting scheduled with the Office of Aging tomorrow and a meeting to be scheduled with the patient's [id number]. Pt is denying SI. Pt was seen today to assess progress since admission. She reports "I was doing really good, but now I'm thinking about this meeting." Pt is nervous as "I know he'll be on his best behavior" and "I try to put my foot down, but I need to stand firm." Pt continues to feel it would also be helpful to have a separate meeting with her [id number], as patient states they are close but admits her [place] is likely not aware of the severity of the patient's recent situation. Pt feeling consultations with PT and OT were helpful and she admits "I truly appreciate everyone's help, I do feel I do better when people push me to be active." Pt continues to deny SI, but agrees that additional effort is necessary to develop a safe and appropriate discharge plan. Pt denies other needs at this time. Physical Exam Psychiatric Orientation: alert, oriented x 3 and cooperative Apperance: appropriately dressed, appropriately groomed and appeared stated age Eye Contact: good eye contact Motor Behavior: no abnormal motor movements (observed while sitting in wheelchair at table in day area) Speech: normal rate/rhythm/volume of speech Affect: + anxious affect and mood congruent with affect Mood: + anxious mood (admitting to being nervous for meeting with son) Thought Process: goal directed thought process and clear/coherent thought process Thought Content: reality based without delusions; no hopelessness and no worthlessness Suicidal Thoughts: denies suicidal thoughts and denies suicidal intent Homicidal Thoughts: denies homicidal thoughts Hallucinations: no auditory hallucinations and no visual hallucinations Cognition: attention grossly intact and language grossly intact Estimated Intelligence: consistent with education level Insight: + fair insight Judgement: + fair judgement Vital Signs (Past 24 Hours) Last Vital Signs Temp 36.5 C 09/07/20 06:40 Pulse 91 H 09/07/20 06:40 Resp 19 09/07/20 06:40 BP 129/82 09/07/20 06:40 Pulse Ox 98 09/05/20 17:25 Results & Data ([facility]) Laboratory Results Laboratory Results - last 24 hr 09/05/20 00:20 U Codeine Confrm GC/MS NEGATIVE Ur Morphine (GC/MS) NEGATIVE Ur Hydrocodone (GC/MS) 1200 H Ur Norhydrocodone 783 H Ur Noroxycodone NEGATIVE Urine Oxycodone (GC/MS) NEGATIVE U Oxymorphone GC/MS NEGATIVE Ur Hydromorphone (GC/MS) 287 H Drug Screen Comment SEE NOTE Current Inpatient Medications Current Inpatient Medications: Current Inpatient Medications Hydrocodone Bitart/Acetaminophen (Hydrocodone/Acetamophen 5/325mg Tab) 1 tab PO Q6 PRN PRN Reason: Pain Stop: 09/19/20 14:59 Last Admin: 09/07/20 09:39 Dose: 1 tab Documented by: Al Hydrox/Mg Hydrox/Simethicone (Aluminum/Magnesium Susp 30 Ml Udc) 30 ml PO Q4H PRN PRN Reason: GI Upset Stop: 10/05/20 13:44 Albuterol (Albuterol Hfa 8 Gm Inhaler) 1 puffs INH Q6R PRN PRN Reason: sob Stop: 10/05/20 14:55 Apixaban (Apixaban 5 Mg Tablet) 5 mg PO BID [facility] Stop: 10/05/20 20:59 Last Admin: 09/07/20 09:34 Dose: 5 mg Documented by: Aspirin (Aspirin 81 Mg Ectab) 81 mg PO DAILY [facility] Stop: 10/06/20 08:59 Last Admin: 09/07/20 09:33 Dose: 81 mg Documented by: Atorvastatin Calcium (Atorvastatin 40 Mg Tab) 40 mg PO QAM [facility] Stop: 10/06/20 08:59 Last Admin: 09/07/20 09:34 Dose: 40 mg Documented by: Digoxin (Digoxin 0.125 Mg Tab) 0.125 mg PO MoWeFr@0900 [facility] Stop: 10/07/20 08:59 Last Admin: 09/07/20 09:34 Dose: 0.125 mg Documented by: Gabapentin (Gabapentin 300 Mg Cap) 300 mg PO HS DAO Stop: 10/05/20 21:59 Last Admin: 09/06/20 20:40 Dose: 300 mg Documented by: Hydroxyzine HCl (Hydroxyzine Hcl 25 Mg Tab) 50 mg PO HSZ PRN PRN Reason: Insomnia Stop: 10/05/20 13:44 Hydroxyzine HCl (Hydroxyzine Hcl 25 Mg Tab) 25 mg PO Q4H PRN PRN Reason: Anxiety Stop: 10/05/20 13:44 Levothyroxine Sodium (Levothyroxine Sodium 25 Mcg Tablet) 25 mcg PO DAILYBB [facility] Stop: 10/06/20 07:59 Last Admin: 09/07/20 09:30 Dose: 25 mcg Documented by: Magnesium Hydroxide (Magnesium Hydroxide Susp 30 Ml Udc) 30 ml PO DAILY PRN PRN Reason: Constipation Stop: 10/05/20 13:44 Metoprolol Succinate (Metoprolol Succ 50mg Ext Rel Tab) 100 mg PO BID [facility] Stop: 10/05/20 20:59 Last Admin: 09/07/20 09:35 Dose: 100 mg Documented by: Nitroglycerin (Nitroglycerin Sl 0.4 Mg/Tab Tab) 0.4 mg SL Q5M PRN PRN Reason: chest pain Stop: 10/05/20 14:55 Potassium Chloride (Potassium Chloride 10 Meq Tabcr) 10 meq PO DAILY DAO Stop: 10/06/20 08:59 Last Admin: 09/07/20 09:34 Dose: 10 meq Documented by: Sertraline HCl (Sertraline Hcl 50 Mg Tablet) 50 mg PO QAM DAO Stop: 10/06/20 08:59 Last Admin: 09/07/20 09:35 Dose: 50 mg Documented by: Sodium Chloride (Sodium Chloride 0.65% Na Soln 45 Ml ([place])) 1 - 2 sprays NA PRN PRN PRN Reason: Nasal Dryness/Congestion Stop: 10/05/20 13:44 Spironolactone (Spironolactone 25 Mg Tab) 25 mg PO QAM DAO Stop: 10/06/20 08:59 Last Admin: 09/07/20 09:33 Dose: 25 mg Documented by: Mental Health & Subst Abuse Tx Therapist Name of Therapist: None Dexigraph Operator Name of Dexigraph Operator: Yuko SINGH Date of Appointment with Dexigraph Operator: 09/08/20 Time of Appointment with Dexigraph Operator: 11:00am Post Discharge Appointments Primary Care Physician Name Of Family Doctor: Dr. Walters Primary Care Provider Appointment Comment: [address] [place] [address] (1) Depression Depression Type: unspecified Qualified Code(s): F32.9 - Major depressive disorder, single episode, unspecified
[2020-09-07] MEDS: GABAPENTIN 300 MG CAP PO SCH (20:32)
[2020-09-08] MEDS: HYDROCODONE/ACETAMOPHEN 5/325MG TAB PO PRN ×2 (06:48→20:57)
[2020-09-08] MEDS: LEVOTHYROXINE SODIUM 25 MCG TABLET PO SCH (07:40)
[2020-09-08] MEDS: APIXABAN 5 MG TABLET PO SCH ×2 (09:10→20:53)
[2020-09-08] MEDS: POTASSIUM CHLORIDE 10 MEQ TABCR PO SCH (09:10)
[2020-09-08] MEDS: ASPIRIN 81 MG ECTAB PO SCH (09:10)
[2020-09-08] MEDS: SPIRONOLACTONE 25 MG TAB PO SCH (09:10)
[2020-09-08] MEDS: ATORVASTATIN 40 MG TAB PO SCH (09:11)
[2020-09-08] MEDS: SERTRALINE HCL 50 MG TABLET PO SCH (09:11)
[2020-09-08] MEDS: METOPROLOL SUCC 50MG EXT REL TAB PO SCH ×2 (09:11→20:55)
--- NOTE | 2020-09-08 10:47 | Psychiatric Progress Note ---
Date of Service September 08, 2020 Impression / Recommendations Impression 75-year-old patient admitted involuntarily for inpatient psychiatric treatment on 09/05/2020 after being brought to the ED on a 302 warrant for suicidal statements with plan verbalized to poultry husbandry worker. The story leading to admission does seem convoluted, despite attempts to clarify in the ED. Nonetheless, the patient admits to significant stressors at home, reports she did verbalize suicidal statements with plan to overdose on pills, and upon arrival on the unit admits that she did have suicidal thoughts in the context of an argument with her son. Regardless of whether patient truly intended to use pills to attempt to end her life, it does seem the patient was uncooperative with poultry husbandry worker and resisted presenting to the ED for evaluation. It also seems that the living situation she describes is very unsafe, and without adequate support patient would not be able to provide for her own needs. Although the patient is uncertain of the history of her sertraline prescription, she does admit to desire to increase the dose of the medication to assist with symptoms of depression and increased anxiety related to her son's family now living in her home. It has been suggested that patient open up about these situations with other supports in attempts to develop a safe discharge plan for patient's physical and mental health needs. Pt is at acute risk of self harm if discharged prematurely, and it is not clear that she would be able to provide for her most basic needs at this time without additional coordination of services. Inpatient psychiatric treatment is medically necessary at this time. (1) Verbalizes suicidal thoughts: 09/05 - Pt denies SI now; however, she does admit to passive SI during argument with son. Regardless of intent to act on suicidal statements verbalized, she did have means to follow through with reported plan to overdose on medications. - Admitted to a locked inpatient behavioral health unit, on q15 minute safety checks - Encourage medication initiation/adjustments as indicated - Encourage participation in group and recreational therapies as able - Gather collateral information from outpatient providers - Suggest family meeting to involve outpatient supports in safety planning - Arrange appropriate aftercare 09/06 - Patient denying SI now, reporting these thoughts occurred when arguing with her son and feeling overwhelmed with the situation and his behavior. - Continue to attend groups and work on coping skills and safety plan. Encouraged to involve her supports, including her brother and sister. 09/07 - Pt continues to deny SI. Focus at this point it on development of a safety plan and inclusion of positive supports that can offer additional assistance to the patient. Pt has numerous meetings planned to coordinate support and services for discharge. 09/08 - Continues to deny SI. (2) Depression: 09/05 - Current diagnosis of unspecified depressive disorder - will attempt to gather additional information to clarify diagnosis over the course of the patient's stay. She is currently prescribed low-dose sertraline 25mg and external medication history shows previous prescriptions for buspirone and venlafaxine within the last year. Pt did agree to maximize her dose of sertraline and was willing to increase to 50mg tomorrow morning - Strongly encouraged patient to consider a family meeting with outpatient supports - pt is able to identify a sister in law who lives locally and may be supportive - Pt will be encouraged to attend group programming if able; however, will work to facilitated augmented therapeutic interventions as needed given her physical limitations. - Will need to work with patient to develop a safe and appropriate discharge plan 09/06 - Continue sertraline, explore options for supportive therapy. - Coordinate with [facility] who have been involved. Recommend meeting with son and possibly her sister or brother as well, for assistance in setting boundaries with her son. 09/07 - Continue treatment plan as above - Meeting with son today, Office of Aging Zoom meeting tomorrow, and patient is hopeful for meeting with her [id number]-fr-qib as well - Pt admits to still feeling nervous about returning home, will likely need assistance with setting appropriate boundaries with her son and opening up to supports about her current needs 09/08 - Continue as above - Office of Aging meeting today, pt reports feeling safe to return home with the additional support of [facility] and her [id number] - Plan will be to discharge tomorrow (3) Permanent atrial fibrillation with rapid ventricular response: 09/05 - Continue apixaban, aspirin, digoxin, metoprolol and nitroglycerin (4) Arthritis: 09/05 - Pt with significant physical limitations related to osteoarthritis of hip - requires 2 assist OOB and will likely need significant nursing interventions during stay. May need to consider augmented therapeutic interventions based on patient's ability to ambulate to group programming as scheduled. - Pt hopeful to be able to follow-up with hip replacement surgery as scheduled in 09/2020 - Continue home dose of hydrocodone q6h prn pain - Will likely need to evaluate whether patient requires additional assistance at home, will attempt to gather further information on this - PT consult placed to evaluate for needs 09/07 - PT/OT consultations completed - primary recommendation is for more frequent, low-impact movement throughout the day. Heat/cold and consideration for an NSAID was suggested. - Pt does seem to be improving with regard to mobility, admitting that she had been more sedentary at home as "I just wanted to stay out of the way." Pt reports appreciation for being pushed to be more active Risk Factors Assessment Male: No : Yes Do You Have Access To A Gun?: No Health Problems: Yes Mental Health Diagnoses: Yes Substance Use Disorders: No Family History of Suicide: No Previous Psychiatric Hospitalization: No Hopelessness: No Smoker: No Protective Factors Assessment : No Responsible for Young Children: No Employed: No Stable Relationships: Yes Supportive Family: Yes Good Rapport with Provider: Yes Interval History Identifying Information LSIA THOMAS is a 75-year-old F who currently lives in [place], [place] with her son and his family, denies previous psychiatric history but is prescribed sertraline, and was admitted on 09/05/20 13:45 on a 302 involuntary commitment after an altercation with her son during which the patient had verbalized suicidal statements with specific plan. Chief Complaint "I'm just tired out." Review of Systems Notes Constitutional: reports fatigue Cardiovascular: denied Respiratory: denied Gastrointestinal: denied Neurological: denied Musculoskeletal: reports chronic hip pain Psychiatric: denies symptoms other than stated above Total of at least 10 systems reviewed, pertinent positives as above and in HPI. Sleep Information Total Hours of Sleep: 8 Sleep Comments: 4.5 hours was on 3-11 shift. Meal Information Percent Meal Consumed - Breakfast: 100 Percent Meal Consumed - Lunch: 100 Percent Meal Consumed - Dinner: 100 Subjective Subjective Patient was seen & assessed and interval progress reviewed with nursing and social work. Staff report the patient has been participating in group programming. Family meeting held with son yesterday, Office of Aging meeting today. Pt was seen today to assess progress since admission. Pt states she is "tired out", reporting "I'm just overwhelmed with talking about everything and all the arrangements, but I'm being discharged tomorrow and I think I'm ready." Pt continues to deny SI. She reports feeling comforted knowing that her tvxbai-qv-jir and nkyzhlu-rg-pts are aware of her situation. She states that they are planning to assist with a conversation with her son to determine what he may be struggling with on a deeper level and coordinate care overall. Pt denies feeling additional medication adjustments are needed. She is planning to be picked-up by her [id number] on discharge. Pt denied other needs or concerns today. Physical Exam Psychiatric Orientation: alert, oriented x 3 and cooperative Apperance: appropriately dressed, appropriately groomed and appeared stated age Eye Contact: good eye contact Motor Behavior: no abnormal motor movements (observed while laying in bed) Speech: normal rate/rhythm/volume of speech Affect: + blunted affect Mood: no depressed mood and no anxious mood (reporting feeling "tired out" from meetings today) Thought Process: goal directed thought process and linear/logical thought process Thought Content: reality based without delusions; no hopelessness and no worthlessness Suicidal Thoughts: denies suicidal thoughts Homicidal Thoughts: denies homicidal thoughts Hallucinations: no auditory hallucinations and no visual hallucinations Cognition: attention grossly intact and language grossly intact Estimated Intelligence: consistent with education level Insight: + fair insight Judgement: + fair judgement Vital Signs (Past 24 Hours) Last Vital Signs Temp 36.5 C 09/08/20 06:38 Pulse 87 09/08/20 06:38 Resp 18 09/08/20 06:38 BP 129/64 09/08/20 06:38 Pulse Ox 98 09/05/20 17:25 Results & Data ([facility]) Current Inpatient Medications Current Inpatient Medications: Current Inpatient Medications Hydrocodone Bitart/Acetaminophen (Hydrocodone/Acetamophen 5/325mg Tab) 1 tab PO Q6 PRN PRN Reason: Pain Stop: 09/19/20 14:59 Last Admin: 09/08/20 06:48 Dose: 1 tab Documented by: Al Hydrox/Mg Hydrox/Simethicone (Aluminum/Magnesium Susp 30 Ml Udc) 30 ml PO Q4H PRN PRN Reason: GI Upset Stop: 10/05/20 13:44 Albuterol (Albuterol Hfa 8 Gm Inhaler) 1 puffs INH Q6R PRN PRN Reason: sob Stop: 10/05/20 14:55 Apixaban (Apixaban 5 Mg Tablet) 5 mg PO BID DAO Stop: 10/05/20 20:59 Last Admin: 09/08/20 09:10 Dose: 5 mg Documented by: Aspirin (Aspirin 81 Mg Ectab) 81 mg PO DAILY [facility] Stop: 10/06/20 08:59 Last Admin: 09/08/20 09:10 Dose: 81 mg Documented by: Atorvastatin Calcium (Atorvastatin 40 Mg Tab) 40 mg PO QAM [facility] Stop: 10/06/20 08:59 Last Admin: 09/08/20 09:11 Dose: 40 mg Documented by: Digoxin (Digoxin 0.125 Mg Tab) 0.125 mg PO MoWeFr@0900 [facility] Stop: 10/07/20 08:59 Last Admin: 09/07/20 09:34 Dose: 0.125 mg Documented by: Gabapentin (Gabapentin 300 Mg Cap) 300 mg PO HS [facility] Stop: 10/05/20 21:59 Last Admin: 09/07/20 20:32 Dose: 300 mg Documented by: Hydroxyzine HCl (Hydroxyzine Hcl 25 Mg Tab) 50 mg PO HSZ PRN PRN Reason: Insomnia Stop: 10/05/20 13:44 Hydroxyzine HCl (Hydroxyzine Hcl 25 Mg Tab) 25 mg PO Q4H PRN PRN Reason: Anxiety Stop: 10/05/20 13:44 Levothyroxine Sodium (Levothyroxine Sodium 25 Mcg Tablet) 25 mcg PO DAILYBB [facility] Stop: 10/06/20 07:59 Last Admin: 09/08/20 07:40 Dose: 25 mcg Documented by: Magnesium Hydroxide (Magnesium Hydroxide Susp 30 Ml Udc) 30 ml PO DAILY PRN PRN Reason: Constipation Stop: 10/05/20 13:44 Metoprolol Succinate (Metoprolol Succ 50mg Ext Rel Tab) 100 mg PO BID [facility] Stop: 10/05/20 20:59 Last Admin: 09/08/20 09:11 Dose: 100 mg Documented by: Nitroglycerin (Nitroglycerin Sl 0.4 Mg/Tab Tab) 0.4 mg SL Q5M PRN PRN Reason: chest pain Stop: 10/05/20 14:55 Potassium Chloride (Potassium Chloride 10 Meq Tabcr) 10 meq PO DAILY [facility] Stop: 10/06/20 08:59 Last Admin: 09/08/20 09:10 Dose: 10 meq Documented by: Sertraline HCl (Sertraline Hcl 50 Mg Tablet) 50 mg PO QAM [facility] Stop: 10/06/20 08:59 Last Admin: 09/08/20 09:11 Dose: 50 mg Documented by: Sodium Chloride (Sodium Chloride 0.65% Na Soln 45 Ml ([place])) 1 - 2 sprays NA PRN PRN PRN Reason: Nasal Dryness/Congestion Stop: 10/05/20 13:44 Spironolactone (Spironolactone 25 Mg Tab) 25 mg PO QAM DAO Stop: 10/06/20 08:59 Last Admin: 09/08/20 09:10 Dose: 25 mg Documented by: Mental Health & Subst Abuse Tx Therapist Name of Therapist: [facility] Therapist's Design Director Name of Design Director: Yuko SINGH Date of Appointment with Design Director: 09/08/20 Time of Appointment with Design Director: 11:00am Post Discharge Appointments Primary Care Physician Name Of Family Doctor: Dr. [facility] Date of Appointment with PCP: 09/16/20 Time of Appointment with PCP: 10:55am Provider Appointment Comment: [address] [place] [address] (1) Depression Depression Type: unspecified Qualified Code(s): F32.9 - Major depressive disorder, single episode, unspecified
[2020-09-08] MEDS: GABAPENTIN 300 MG CAP PO SCH (20:57)
[2020-09-09] MEDS: LEVOTHYROXINE SODIUM 25 MCG TABLET PO SCH (07:53)
[2020-09-09] MEDS: SERTRALINE HCL 50 MG TABLET PO SCH (08:35)
[2020-09-09] MEDS: METOPROLOL SUCC 50MG EXT REL TAB PO SCH (08:36)
[2020-09-09] MEDS: APIXABAN 5 MG TABLET PO SCH (08:36)
[2020-09-09] MEDS: POTASSIUM CHLORIDE 10 MEQ TABCR PO SCH (08:36)
[2020-09-09] MEDS: ATORVASTATIN 40 MG TAB PO SCH (08:36)
[2020-09-09] MEDS: ASPIRIN 81 MG ECTAB PO SCH (08:36)
[2020-09-09] MEDS: DIGOXIN 0.125 MG TAB PO SCH (08:36)
[2020-09-09] MEDS: SPIRONOLACTONE 25 MG TAB PO SCH (08:37)
--- NOTE | 2020-09-09 09:57 | Discharge Summary ---
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 rapid ventricular response: 09/05 - Continue apixaban, aspirin, digoxin, metoprolol and nitroglycerin (4) Arthritis: 09/05 - Pt with significant physical limitations related to osteoarthritis of hip - requires 2 assist OOB and will likely need significant nursing interventions during stay. May need to consider augmented therapeutic interventions based on patient's ability to ambulate to group programming as scheduled. - Pt hopeful to be able to follow-up with hip replacement surgery as scheduled in 09/2020 - Continue home dose of hydrocodone q6h prn pain - Will likely need to evaluate whether patient requires additional assistance at home, will attempt to gather further information on this - PT consult placed to evaluate for needs 09/07 - PT/OT consultations completed - primary recommendation is for more frequent, low-impact movement throughout the day. Heat/cold and consideration for an NSAID was suggested. - Pt does seem to be improving with regard to mobility, admitting that she had been more sedentary at home as "I just wanted to stay out of the way." Pt reports appreciation for being pushed to be more active 09/09 -The patient is able to connect her periodic feelings of helplessness with her pattern of physical inactivity and her reticence to follow through on what she says is a recommendation to have hip replacement surgery in order to increase her mobility. She says that her goals will include being able to walk up and down the half flight of stairs that separate her living area from the bathroom in her home, and also her goal is to be able to "walk outside" and "sit in the sun," when the weather improves. The patient also reports that she is aware of her chronic hip pain and is realizes that following recovery from the proposed hip replacement surgery she will have relatively less pain. Mental Health & Subst Abuse Tx Therapist Name of Therapist: Abby Therapist's Engine Watchman Name of Engine Watchman: Yuko SINGH Phone Number for Engine Watchman: [phone] Date of Appointment with Engine Watchman: 09/09/20 Time of Appointment with Engine Watchman: late afternoon? Case Management Appointment Comment: At your residence Engine Watchman Release of Information: Obtained, Reviewed and Signed Post Discharge Appointments Primary Care Physician Name Of Family Doctor: Dr. Walters Primary Care Date of Appointment with PCP: 09/16/20 Time of Appointment with PCP: 10:55am Provider Appointment Comment: [address] [place] [address] Primary Care Release of Information: Obtained, Reviewed and Signed Smoking Cessation Counseling Tobacco Cessation Medication Prescribed at Discharge: Not Applicable/Non-Smoker Discharge Plan Discharge Items Patient Disposition: Home - Self-Care Reason For Visit: DEPRESSION NOS Discharge Diagnosis: Unspecified Depression Activity: Resume your previous activity Non-emergency contact: Primary Care Provider, Therapist and Videographer Call non-emergency contact if: you have any medication questions and your symptoms worsen Follow-up/Referrals: Kari Walters DO [Primary Care Provider] - Diet: Heart Healthy Addtl Attending Provider Instructions: SPECIAL CARE INSTRUCTIONS: 1. Follow through with your scheduled aftercare appointments. If unable to keep an appointment, please call to reschedule. 2. Take your medication only as prescribed. Medication should not be changed or stopped without the approval of your doctor. In the event of worsening symptoms or concerns about side effects, contact your doctor immediately. 3. Utilize new healthy coping skills, anger management skills, and stress management skills learned during your hospitalization. Journal feelings and process them with a support person. Identify stressors or situations that may result in relapse, deterioration or inappropriate behaviors and develop a plan to deal with those issues. 4. If your coping skills are ineffective and you are in crisis, contact your outpatient providers for direction. If unable to reach your providers, please call the [facility] CRISIS LINE AT , go to the [facility] walk-in center at [address], [address], [place], or go to the closest Emergency Room. 5. Avoid alcohol and un-prescribed drugs. 6. You have been provided with the Mental Health Advance Directives Pamphlet for your review. AFTERCARE APPOINTMENTS: * Please call your insurance company prior to your scheduled appointment to confirm your aftercare providers are covered. Take your insurance information to your appointments. WHO TO CALL AND WHEN: Medical Emergencies: For questions or emergencies related to your hospital stay, please contact the Inpatient Behavioral Health Unit at [phone]. A bulb grader is on-call 13/05 for the Behavioral Health Unit for emerg encies At any time you feel your situation is an emergency, you may also call [phone] immediately. Pending Studies at Discharge: No Stand-Alone Forms: My [employer], Smoking Cessation Medications and DC Order Prescriptions: New sertraline 50 mg Tablet 50 mg PO QAM Qty: 30 RF: 0 Continued Eliquis 5 mg tablet 5 mg PO BID RF: 0 gabapentin 300 mg capsule 300 mg PO HS RF: 0 digoxin 125 mcg (0.125 mg) tablet 125 mcg PO 3XWK RF: 0 potassium chloride 10 mEq tablet,ER particles/crystals 10 meq PO DAILY RF: 0 spironolactone 25 mg tablet 25 mg PO QAM RF: 0 hydrocodone-acetaminophen 5-325 mg tablet 1 tab PO Q6 PRN (Reason: Pain) RF: 0 albuterol sulfate [Ventolin HFA] 90 mcg/actuation Hfa Aerosol Inhaler 1 inh INHALATION QID PRN (Reason: sob) RF: 0 levothyroxine 25 mcg tablet 25 mcg PO QAM RF: 0 atorvastatin 40 mg Tablet 40 mg PO QAM Qty: 30 RF: 5 nitroglycerin [Nitrostat] 0.4 mg tablet, sublingual 0.4 mg Sublingual Q5M PRN (Reason: chest pain) Qty: 25 RF: 1 metoprolol succinate 100 mg tablet extended release 24 hr 100 mg PO BID RF: 0 aspirin [Aspirin Low Dose] 81 mg Tablet,Delayed Release (Dr/Ec) 81 mg PO DAILY RF: 0 Discontinued sertraline 25 mg tablet 25 mg PO QAM RF: 0 Discharge Orders: Discharge Order (Routine); Ordered 09/09/20 Ordered By: Tucker Macdonald Admission Data Admit Date/Time: 09/05/20 13:45 Attending Provider: Marimar Wang Admit Provider: Marimar Wang Primary Care Provider: Kari Walters Other Providers: Sara Nunez Other Interventions: Discharge Summary Assessment (RN) Last Done: 09/09/20 09:26 PSY Interdisciplinary Discharge Planning Last Done: 09/09/20 09:28 [place] [address] D/C day mgmt > 30 min Patient Type Established History Expanded Problem Focused Exam Expanded Problem Focused Medical Decision Making Moderate Complexity Diagnoses Verbalizes suicidal thoughts R45.851 Depression F32.9 Depression Type: unspecified Permanent atrial fibrillation with rapid ventricular response I48.21 Arthritis M19.90 Time Spent (min) 45
== END 2020-09-09 10:55 | disposition home or self-care (01) | DRG 881 ==
LOC: ED 00:05 → 3S 13:45

== ENCOUNTER 2020-09-25 22:15 | Inpatient (IN) ==
[2020-09-25] MEDS ORDERED: ONDANSETRON INJ 2 MG/ML 2 ML VIAL IV STA (22:21)
[2020-09-25] MEDS ORDERED: SODIUM CHLORIDE 0.9% 500 ML IV SCH (22:30)
--- NOTE | 2020-09-25 22:37 | Emergency Department Note ---
Impression & Plan Hip pain, Effusion of hip joint, left ED Provider Note NAME: LISA THOMAS AGE: 75 SEX: F : 1945 ARRIVES VIA: Ambulance INFORMANT: Patient, ED PROVIDER(S): Neo Lucas DO CHIEF COMPLAINT: Hip pain HPI: The patient is a 75-year-old female who presented to the emergency department for an evaluation of left hip pain. The patient has a history of severe degenerative disease in her left hip. She was started on pain medication by her primary care physician but was also referred for an orthopedic evaluation. The patient's arthritis is felt to be very advanced and she is scheduled for hip replacement within the next few weeks. She states over the last week especially she has noticed worsening pain. She states that she went to get out of the shower at [address] point and turned the wrong way with her left hip and felt a very severe sharp pain located on the lateral aspect the left hip. She states the pain goes into her back as well as into her knee. She states the pain is worsened with any movement or rotation of the hip. She also complains of very severe pain with any ambulation or weightbearing. She states the pain is mildly improved with her outpatient pain medication. She called the ambulance this evening because she was unable to ambulate any further. ROS: See above HPI for pertinent positives & negatives. A total of 10 systems reviewed and were otherwise negative. PAST MEDICAL HISTORY: See Below PAST SURGICAL HISTORY: See Below FAMILY HISTORY: See Below SOCIAL HISTORY: See Below HOME MEDICATIONS: See Below ALLERGIES: See Below VITALS: See Below PHYSICAL EXAMINATION: GENERAL: The patient is awake and alert very anxious appearing. She appears to be in very severe pain. EYES: The conjunctivae are clear. The pupils are round and reactive. EARS, NOSE, MOUTH AND THROAT: The nose is without any evidence of any deformity. NECK: The neck is nontender and supple. RESPIRATORY: Normal respiratory effort is noted there is no evidence of wheezing rhonchi or rales CARDIOVASCULAR: Regular rate and rhythm noted there no murmurs rubs or gallops normal S1 normal S2. GASTROINTESTINAL: The abdomen is soft. Abdomen is nontender. BACK: No midline tenderness was noted. Range of motion does appear to be intact but painful. MUSCULOSKELETAL/EXTREMITIES: There is severe pain with any range of motion testing of the left hip. There is no deformity. There is mild shortening however the patient is keeping the left knee slightly flexed. SKIN: Skin was warm and dry. Pedal edema was noted bilaterally. Pulses are symmetric in both feet. NEUROLOGIC: Patient is awake alert and oriented x3. MEDICAL DECISION MAKING: The patient is a 75-year-old female who presented to the emergency department by ambulance for an evaluation of left hip pain. The patient has had chronic left hip pain and is scheduled for hip replacement in the third week of this month. She started having worsening pain over the last few days. She states that she had no specific trauma but she did turn wrong when she was in her bathroom. She is had very severe pain ever since. She has been taking her outpatient pain medication with some relief but pain became much worse this evening and she presented to the emergency department. She has no fever. She does have significant pain with range of motion testing. Radiographic studies were obtained and appear to be consistent with very severe degenerative changes. She also has a small hip effusion. The patient was treated with pain medication in the emergency department but continues have very severe pain. I do not feel the patient would do well as an outpatient at this time. I will discuss this case with the on-call [facility] hospitalist group. Triage Nursing notes reviewed. Prior medical records reviewed Vital Signs: reviewed and remarkable for elevated blood pressure. Differential diagnosis: Fracture, subluxation, dislocation, contusion, ligamentous injury, neurovascular, compartment syndrome, rhabdomyolysis, as well as other pathologies. ER treatment provided: See below Diagnostics interpreted by me: ECG: none Cardiac Monitoring: An order was placed for continuous cardiac monitoring. The monitor shows a rate of 100 beats per minute with atrial fibrillation rhythm. Laboratory studies: As stated above and show below. Imaging studies: See below Consultation(s): 0020: I discussed this case with Dr. Hawk. He will evaluate the patient in the emergency department for further management and disposition. Past Med/Surg History Medical History Anxiety Arthritis Asthma rescue inhaler weekly PRN Atrial fibrillation hx cardioversion (unsuccessful) Chronic diastolic heart failure Coronary artery disease 08/31/19 thrombus RCA, PCI with JAILENE Depression Depression with suicidal ideation Dyslipidemia History of cardioversion History of DVT (deep vein thrombosis) ~1999. Hx of breast cancer left Hypertension Hypothyroidism Kidney stones Prediabetes Scoliosis Urinary tract infection 6/30/20 treated at [facility] -- sent to [facility] in [place], [place] d/t hallucinations and further treatment for ~1 week. currently at home. Surgical History History of bilateral tubal ligation History of cataract surgery bilateral History of section x2 History of colonoscopy History of left knee replacement History of right knee joint replacement Hx of lumpectomy Left lumpectomy with lymph node removal S/P bunionectomy bilateral S/P left inguinal hernia repair x2 S/P QUINCY-BSO Status post coronary artery stent placement 08/31/19 thrombus RCA, PCI with JAILENE ([facility]). Follows with Sara Nunez. Status post lumbar surgery [facility] Family History Other Heart disease No family history of adverse response to anesthesia Social History Smoking Status: Never smoker Second Hand Exposure: Yes (hx); Hx Alcohol Use: Yes Alcohol type: wine Hx Substance Use: No Preferred Language: Khmer Communication Ability: Effective Tub Wash Operator Required: No Beliefs That Will Affect Care: None Current Living Situation: Family Current Living Situation Comment: w/ son Feels Safe at Home: Yes Assistive Devices: Cane, Glasses and Walker Allergies Allergies Allergy/AdvReac Type Severity Reaction Status Date / Time adhesive Allergy Unknown HEAVIER Verified 09/25/20 23:01 SURG TAPE-REDNESS SORE SKIN cat dander Allergy Unknown ITCHY Verified 09/25/20 23:01 NOSE, ITCHY EYES,RUNNY NOSE grass pollen-perennial rye, Allergy Unknown GRASS,MOLD-ITCHY Verified 09/25/20 23:01 standar EYES RUNNY NOSE latex Allergy Unknown CONTACT Verified 09/25/20 23:01 DERMATITIS tetanus toxoid, adsorbed Allergy Unknown SWELLING Verified 09/25/20 23:01 AT SITE KOLE Inhibitors AdvReac Unknown COUGH Unverified 09/25/20 23:01 Home Meds Home Medications Medication Instructions Recorded Confirmed gabapentin 300 mg PO HS 07/03/19 09/25/20 apixaban 5 mg tablet 5 mg PO BID 08/19/19 09/25/20 levothyroxine 25 mcg PO QAM 11/07/19 12/06/20 digoxin 125 mcg PO 3XWK 04/19/20 09/25/20 potassium chloride 10 meq PO DAILY 04/19/20 09/25/20 spironolactone 25 mg PO QAM 04/19/20 09/25/20 albuterol sulfate [Ventolin HFA] 1 inh INHALATION QID PRN 05/19/20 09/25/20 aspirin [Aspirin Low Dose] 81 mg PO DAILY 09/05/20 09/25/20 metoprolol succinate 100 mg PO BID 09/05/20 09/25/20 oxycodone-acetaminophen 1 tab PO Q6 PRN 09/25/20 09/25/20 Previous Rx's Medication Instructions Recorded atorvastatin 40 mg PO QAM #30 tab 09/02/19 nitroglycerin [Nitrostat] 0.4 mg SUBLINGUAL Q5M PRN #25 tab 09/02/19 sertraline 50 mg PO QAM #30 tab 09/09/20 Results & Data (ED) Vital Signs Vital Signs - 24 hr 09/25/20 22:22 09/25/20 22:49 09/25/20 23:50 Temperature 37.3 C Temperature Source Oral Pulse Rate 107 H Pulse Rate [Finger] 105 H Respiratory Rate 20 20 Respiratory Effort / Characteristics Non-Labored Spontaneous Respiratory Depth Normal Blood Pressure 148/79 H Blood Pressure [Right Arm] 144/112 H Blood Pressure Mean 102 Blood Pressure Mean [Right Arm] 122 Pulse Oximetry 100 95 95 Oxygen Delivery Method Room Air Room Air Room Air Sepsis New/Unexplained Change in Mental Status N/A Sepsis Action Taken by Nursing No Action Required Home Medications Current Medication List: was personally reviewed by me Laboratory Data Attestation: I reviewed the patient's lab results. Result diagrams: 09/25/20 22:35 09/25/20 22:35 Lab Results 09/25/20 09/25/20 Range/Units 22:35 22:35 WBC 11.78 H (4.8-10.8) K/uL RBC 4.87 (4.2-5.4) M/uL Hgb 14.7 (12.0-16.0) g/dL Hct 43.1 (37-47) % MCV 88.5 (80-100) fL MCH 30.2 (25-34) pg MCHC 34.1 (32-36) g/dL RDW Std Deviation 45.1 (36.4-46.3) fL RDW Coeff of Stephan 13.8 (11.5-14.5) % Plt Count 334 (130-400) K/uL MPV 10.9 H (7.4-10.4) fL Immature Gran % (Auto) 0.2 % Neut % (Auto) 74.6 % Lymph % (Auto) 16.2 % [place] % (Auto) 7.6 % Eos % (Auto) 1.1 % Baso % (Auto) 0.3 % Neut # (Auto) 8.78 H (1.4-6.5) K/uL Lymph # (Auto) 1.91 (1.2-3.4) K/uL [place] # (Auto) 0.90 H (0.11-0.59) K/uL Eos # (Auto) 0.13 (0-0.5) K/uL Baso # (Auto) 0.04 (0-0.2) K/uL Immature Gran # (Auto) 0.02 (0.00-0.02) K/uL Sodium 144 (136-145) mmol/L Potassium 3.4 L (3.5-5.1) mmol/L Chloride 111 H (98-107) mmol/L Carbon Dioxide 26 (21-32) mmol/L Anion Gap 7.0 (3-11) BUN 14 (7-18) mg/dl Creatinine 1.08 (0.6-1.2) mg/dl Est Cr Clr Drug Dosing 44.7 ml/min Est GFR ( Amer) 58.6 Est GFR (Non-Af Amer) 50.5 BUN/Creatinine Ratio 13.0 (10-20) Glucose 131 H (70-99) mg/dl Calcium 8.9 (8.5-10.1) mg/dl Total Bilirubin 0.4 (0.2-1) mg/dl AST 13 L (15-37) U/L ALT 14 (12-78) U/L Alkaline Phosphatase 90 (45-117) U/L Total Protein 7.4 (6.4-8.2) gm/dl Albumin 3.5 (3.4-5.0) gm/dl Globulin 3.9 (2.5-4.0) gm/dl Albumin/Globulin Ratio 0.9 (0.9-2) Lipase 121 (73-393) U/L Administered Medications Morphine Sulfate (Morphine Sulfate 4 Mg/Ml 1 Ml Carp\Vial) 4 mg IV Q15M PRN PRN Reason: Pain Stop: 10/09/20 22:20 Last Admin: 09/25/20 23:42 Dose: 4 mg Documented by: [id number] Admin: 09/25/20 22:48 Dose: 4 mg Documented by: [id number] Discontinued Medications Sodium Chloride (Nss) 500 mls @ 999 mls/hr IV .Q31M DAO Stop: 09/25/20 23:00 Last Infusion: 09/25/20 23:20 Dose: 0 mls/hr Documented by: [id number] Admin: 09/25/20 22:48 Dose: 999 mls/hr Documented by: [id number] Ondansetron HCl (Ondansetron Inj 2 Mg/Ml 2 Ml Vial) 4 mg IV NOW STA Stop: 09/25/20 22:22 Last Admin: 09/25/20 22:47 Dose: 4 mg Documented by: [id number] Imaging Data Radiologist's Impression: Patient: LISA THOMAS (Female) : 47 Status: ER Date: 09/25/20 23:44 Room #: History: PAIN AT LOWER BACK AND DOWN LEFT LEG Slices: 833 Priors: Tech: Simone Taylor @ [phone] Exams: CT L SPINE Contrast: Accession Numbers: [id number] Preliminary Findings Only See Final Report For Complete Findings CT L SPINE: No acute lumbar spine fracture. Severe multilevel degenerative changes of the lumbar spine. Postsurgical changes of posterior lumbar fusion of L2-S1 without evident hardware complication. Diffuse bony demineralization. 1.9 cm right adrenal adenoma. 1.7 cm simple fluid density cyst of the left interpolar kidney and large simple fluid density cyst in the right inferior kidney measuring up to at least 5.1 cm. Radiologist: Terrell Eli MD Study ready at 23:49 and initial results transmitted at 23:53 Patient: LISA THOMAS (Female) : 47 Status: ER Date: 09/25/20 23:44 Room #: History: PAIN AT LEFT HIP Slices: 455 Priors: Tech: Simone Taylor @ [phone] Exams: CT LEFT HIP Contrast: Accession Numbers: [id number] Preliminary Findings Only See Final Report For Complete Findings CT LEFT HIP: Severe degenerative and erosive changes of the left hip. Left hip joint effusion. Surgical clips in the left groin. Radiologist: Terrell Eli MD Study ready at 23:49 and initial results transmitted at 00:00 Prescription Drug Monitoring [place] Drug Monitoring Program reviewed and findings noted below Prescription Drug Findings: The patient does take chronic pain medication and this does appear on her PDMP review. Blood Pressure Blood Pressure Findings: Elevated blood pressure Discharge Plan Visit Data Chief Complaint: Hip Pain Stated Complaint: LEFT HIP PAIN ED Provider: Neo Lucas Discharge Problem: Hip pain, Effusion of hip joint, left Patient Disposition: Being Evaluated by Hospitalist Condition: Good Forms Stand Alone Forms: [facility] Prescriptions Prescriptions: No Action Eliquis 5 mg tablet 5 mg PO BID RF: 0 gabapentin 300 mg capsule 300 mg PO HS RF: 0 digoxin 125 mcg (0.125 mg) tablet 125 mcg PO 3XWK RF: 0 potassium chloride 10 mEq tablet,ER particles/crystals 10 meq PO DAILY RF: 0 spironolactone 25 mg tablet 25 mg PO QAM RF: 0 albuterol sulfate [Ventolin HFA] 90 mcg/actuation Hfa Aerosol Inhaler 1 inh INHALATION QID PRN (Reason: sob) RF: 0 oxycodone-acetaminophen 5-325 mg tablet 1 tab PO Q6 PRN (Reason: Pain) RF: 0 levothyroxine 25 mcg tablet 25 mcg PO QAM RF: 0 atorvastatin 40 mg Tablet 40 mg PO QAM Qty: 30 RF: 5 nitroglycerin [Nitrostat] 0.4 mg tablet, sublingual 0.4 mg Sublingual Q5M PRN (Reason: chest pain) Qty: 25 RF: 1 metoprolol succinate 100 mg tablet extended release 24 hr 100 mg PO BID RF: 0 aspirin [Aspirin Low Dose] 81 mg Tablet,Delayed Release (Dr/Ec) 81 mg PO DAILY RF: 0 sertraline 50 mg Tablet 50 mg PO QAM Qty: 30 RF: 0 Referrals Referrals: Kari Walters DO [Primary Care Provider] -
[2020-09-25] MEDS: MoRPHine SULFATE 4 MG/ML 1 ML CARP\\VIAL IV PRN ×2 (22:48→23:42)
[2020-09-25 23:03] LABS: Basophils # (auto) 0.04 K/uL (0-0.2); Basophils % (auto) 0.3 %; Eosinophils # (auto) 0.13 K/uL (0-0.5); Eosinophils % (auto) 1.1 %; Hematocrit (blood only) 43.1 % (37-47); Hemoglobin 14.7 g/dL (12.0-16.0); Immature Granulocytes # (auto) 0.02 K/uL (0.00-0.02); Immature Granulocytes % (auto) 0.2 %; Lymphocytes # (auto) 1.91 K/uL (1.2-3.4); Lymphocytes % (auto) 16.2 %; Mean Corpuscular Hemoglobin 30.2 pg (25-34); Mean Corpuscular Hgb Conc 34.1 g/dL (32-36); Mean Corpuscular Volume 88.5 fL (80-100); Mean Platelet Volume 10.9 fL (7.4-10.4); Monocytes % (auto) 7.6 %; Neutrophils # (auto) 8.78 K/uL (1.4-6.5); Neutrophils % (auto) 74.6 %; Platelet Count 334 K/uL (130-400); RDW Coefficient of Variation 13.8 % (11.5-14.5); RDW Standard Deviation 45.1 fL (36.4-46.3); Red Blood Count 4.87 M/uL (4.2-5.4); White Blood Count 11.78 K/uL (4.8-10.8)
[2020-09-25 23:05] LABS: Albumin Level 3.5 gm/dl (3.4-5.0); Calcium 8.9 mg/dl (8.5-10.1); Creatinine Clr Calc Pharmacy 44.7 ml/min; Est GFR (African American) 58.6; Est GFR (Non-African American) 50.5; Potassium 3.4 mmol/L (3.5-5.1)
[2020-09-25 23:07] LABS: Albumin Globulin Ratio 0.9 (0.9-2); Bilirubin,Total 0.4 mg/dl (0.2-1); Globulin 3.9 gm/dl (2.5-4.0); Total Protein 7.4 gm/dl (6.4-8.2)
[2020-09-26] MEDS ORDERED: METOPROLOL SUCC 50MG EXT REL TAB PO STA (00:27)
[2020-09-26] MEDS ORDERED: POTASSIUM CHLORIDE CRTAB 20 MEQ TABCR PO STA (00:28)
[2020-09-26 00:35] LABS: C Reactive Protein 0.71 mg/dl (0-0.29)
--- NOTE | 2020-09-26 01:33 | History & Physical Report ---
Date of Service September 26, 2020 Assessment & Plan (1) Hip pain: History chronic left hip pain/avascular necrosis Failed conservative management with medications, cortisone injections and physical therapy as per outpatient orthopedics note Intractable discomfort in the last week HTN, elevated A. fib on Eliquis, rate slightly elevated Secondary to discomfort chronic diastolic heart failure as per records, patient euvolemic to dry CAD status post stent (08/2019) status post completion of Plavix Rx hyperlipidemia, on statin Rx DM 2 diet-controlled, well-controlled as of recent outpatient hemoglobin A1c of 6.22 May 2020 breast cancer left status post surgery status post tamoxifen Rx, past history DVT Hypothyroidism, euthyroid as of last month's TSH Hypokalemia mood disorder OBS Medical telemetry given BP and heart rate elevation Analgesia Facilitate home beta-luis armando, may need dose titration Orthopedics consult Re: Intractable left hip pain Hold Eliquis for now until patient evaluated by Orthopedics Resume Eliquis if no surgical procedure planned. Replace potassium, check magnesium from lab blood Basal insulin, ISS BG goal [id number], update hemoglobin A1c DVT prophylaxis. SCDs while Eliquis on hold in anticipation of procedural intervention Full code Text document was generated using [employer] voice recognition software. It may contain grammatical or spelling errors. Kindly contact undersigned for clarification of any documentation item in question. History of Present Illness Chief Complaint: Worsening left hip pain Primary Care Provider: Kari Walters DO History obtained from patient and records. Medical history significant for chronic diastolic heart failure (EF 55%, TTE 2019), CAD status post stent, A. fib on Eliquis, hypertension, hyperlipidemia, DM 2 diet-controlled, breast cancer left status post surgery status post radiation, tamoxifen Rx, past history DVT as per records (2017), mood disorder, hypothyroidism, chronic left hip pain/avascular necrosis as per records. Last confinement 3 weeks ago at the behavioral health unit for suicidality. Patient has had worsening chronic left hip pain for for more than a year now. Elective surgery scheduled by [facility] [place] orthopedics [address] [facility] [place] Cardiology preop eval last May 2020. Updated outpatient TTE as follows : Normal LV systolic, LVEF 55%, mild MR, mild global hypokinesis now resolved. Cardiology provider recommended stopping Plavix home Rx for good; holding Eliquis for 3 days prior to date of surgery and continuing aspirin 81 mg without interruption perioperatively. In the last week patient noted worsening of left hip pain. Possible twisting event. No chest pain, no shortness of breath, no fever, no chills. Recent narcotic regimen changed by PCP lasting long enough as per patient. Intractable discomfort at the ER. 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 Allergies Allergy/AdvReac Type Severity Reaction Status Date / Time adhesive Allergy Unknown HEAVIER Verified 09/25/20 23:01 SURG TAPE-REDNESS SORE SKIN cat dander Allergy Unknown ITCHY Verified 09/25/20 23:01 NOSE, ITCHY EYES,RUNNY NOSE grass pollen-perennial rye, Allergy Unknown GRASS,MOLD-ITCHY Verified 09/25/20 23:01 standar EYES RUNNY NOSE latex Allergy Unknown CONTACT Verified 09/25/20 23:01 DERMATITIS tetanus toxoid, adsorbed Allergy Unknown SWELLING Verified 09/25/20 23:01 AT SITE KOLE Inhibitors AdvReac Unknown COUGH Unverified 09/25/20 23:01 Home Medications Medication Instructions Recorded Confirmed Type gabapentin 300 mg PO HS 07/03/19 09/25/20 History apixaban 5 mg tablet 5 mg PO BID 08/19/19 09/25/20 History levothyroxine 25 mcg PO QAM 08/27/19 09/25/20 History atorvastatin 40 mg PO QAM #30 tab 09/02/19 09/25/20 Rx nitroglycerin [Nitrostat] 0.4 mg SUBLINGUAL Q5M PRN #25 tab 09/02/19 09/25/20 Rx digoxin 125 mcg PO 3XWK 04/19/20 09/25/20 History potassium chloride 10 meq PO DAILY 04/19/20 09/25/20 History spironolactone 25 mg PO QAM 04/19/20 09/25/20 History albuterol sulfate [Ventolin HFA] 1 inh INHALATION QID PRN 05/19/20 09/25/20 History aspirin [Aspirin Low Dose] 81 mg PO DAILY 09/05/20 09/25/20 History metoprolol succinate 100 mg PO BID 09/05/20 09/25/20 History sertraline 50 mg PO QAM #30 tab 09/09/20 09/25/20 Rx oxycodone-acetaminophen 1 tab PO Q6 PRN 09/25/20 09/25/20 History Past Med/Surg History Medical History Anxiety Arthritis Asthma rescue inhaler weekly PRN Atrial fibrillation hx cardioversion (unsuccessful) Chronic diastolic heart failure Coronary artery disease 08/31/19 thrombus RCA, PCI with JAILENE Depression Depression with suicidal ideation Dyslipidemia History of cardioversion History of DVT (deep vein thrombosis) ~1999. Hx of breast cancer left Hypertension Hypothyroidism Kidney stones Prediabetes Scoliosis Urinary tract infection 04/19/20 treated at [facility] -- sent to [facility] in [place], [place] d/t hallucinations and further treatment for ~1 week. currently at home. Surgical History History of bilateral tubal ligation History of cataract surgery bilateral History of section x2 History of colonoscopy History of left knee replacement History of right knee joint replacement Hx of lumpectomy Left lumpectomy with lymph node removal S/P bunionectomy bilateral S/P left inguinal hernia repair x2 S/P QUINCY-BSO Status post coronary artery stent placement 08/31/19 thrombus RCA, PCI with JAILENE ([facility]). Follows with Sara Nunez. Status post lumbar surgery [facility] Family History Other Heart disease No family history of adverse response to anesthesia Social History Smoking Status: Never smoker Second Hand Exposure: Yes (hx); Hx Alcohol Use: Yes Alcohol type: wine Hx Substance Use: No Preferred Language: Cymraes Communication Ability: Effective Fuel Assembler Required: No Beliefs That Will Affect Care: None Current Living Situation: Family Current Living Situation Comment: w/ son Feels Safe at Home: Yes Assistive Devices: Cane, Glasses and Walker Review of Systems Review of Systems: As per HPI, all 10 systems reviewed, all other ROS negative Physical Exam Physical Exam: GENERAL: Slightly uncomfortable, pleasant, obese, no respiratory distress SKIN: Normal color, warm HEENT: [place] palpebral conjunctivae, no ptosis, dry buccal mucosa NECK : Supple, no tenderness CHEST : CTA, no tenderness HEART : Irregular, tachycardic, no obvious murmurs ABDOMEN: Some distention, nontender EXTREMITIES : Minimal LE swelling, left hip tenderness, no other conspicuous deformities noted NEUROLOGIC : Coherent, no facial asymmetry, no other gross focality Results & Data Results & Data ([facility]) Vital Signs (Past 12 Hours) Vital Signs Temp Pulse Pulse Resp BP BP Pulse Ox 09/26/20 01:00 97 H 20 143/101 H 94 09/25/20 23:50 105 H 20 144/112 H 95 09/25/20 22:49 95 09/25/20 22:22 37.3 C 107 H 20 148/79 H 100 Laboratory Results Laboratory Results WBC 11.78 K/uL (4.8-10.8) H 09/25/20 22:35 RBC 4.87 M/uL (4.2-5.4) 09/25/20 22:35 Hgb 14.7 g/dL (12.0-16.0) 09/25/20 22:35 Hct 43.1 % (37-47) 09/25/20 22:35 MCV 88.5 fL (80-100) 09/25/20 22:35 MCH 30.2 pg (25-34) 09/25/20 22:35 MCHC 34.1 g/dL (32-36) 09/25/20 22:35 RDW Std Deviation 45.1 fL (36.4-46.3) 09/25/20 22:35 RDW Coeff of Stephan 13.8 % (11.5-14.5) 09/25/20 22:35 Plt Count 334 K/uL (130-400) 09/25/20 22:35 MPV 10.9 fL (7.4-10.4) H 09/25/20 22:35 Immature Gran % (Auto) 0.2 % 09/25/20 22:35 Neut % (Auto) 74.6 % 09/25/20 22:35 Lymph % (Auto) 16.2 % 09/25/20 22:35 Humphreys % (Auto) 7.6 % 09/25/20 22:35 Eos % (Auto) 1.1 % 09/25/20 22:35 Baso % (Auto) 0.3 % 09/25/20 22:35 Neut # (Auto) 8.78 K/uL (1.4-6.5) H 09/25/20 22:35 Lymph # (Auto) 1.91 K/uL (1.2-3.4) 09/25/20 22:35 Humphreys # (Auto) 0.90 K/uL (0.11-0.59) H 09/25/20 22:35 Eos # (Auto) 0.13 K/uL (0-0.5) 09/25/20 22:35 Baso # (Auto) 0.04 K/uL (0-0.2) 09/25/20 22:35 Immature Gran # (Auto) 0.02 K/uL (0.00-0.02) 09/25/20 22:35 ESR 28 mm/hr (0-21) H 09/25/20 22:38 Sodium 144 mmol/L (136-145) 09/25/20 22:35 Potassium 3.4 mmol/L (3.5-5.1) L 09/25/20 22:35 Chloride 111 mmol/L (98-107) H 09/25/20 22:35 Carbon Dioxide 26 mmol/L (21-32) 09/25/20 22:35 Anion Gap 7.0 (3-11) 09/25/20 22:35 BUN 14 mg/dl (7-18) 09/25/20 22:35 Creatinine 1.08 mg/dl (0.6-1.2) 09/25/20 22:35 Est Cr Clr Drug Dosing 44.7 ml/min 09/25/20 22:35 Est GFR ( Amer) 58.6 09/25/20 22:35 Est GFR (Non-Af Amer) 50.5 09/25/20 22:35 BUN/Creatinine Ratio 13.0 (10-20) 09/25/20 22:35 Glucose 131 mg/dl (70-99) H 09/25/20 22:35 Calcium 8.9 mg/dl (8.5-10.1) 09/25/20 22:35 Total Bilirubin 0.4 mg/dl (0.2-1) 09/25/20 22:35 AST 13 U/L (15-37) L 09/25/20 22:35 ALT 14 U/L (12-78) 09/25/20 22:35 Alkaline Phosphatase 90 U/L (45-117) 09/25/20 22:35 C-Reactive Protein 0.71 mg/dl (0-0.29) H 09/25/20 22:35 Total Protein 7.4 gm/dl (6.4-8.2) 09/25/20 22:35 Albumin 3.5 gm/dl (3.4-5.0) 09/25/20 22:35 Globulin 3.9 gm/dl (2.5-4.0) 09/25/20 22:35 Albumin/Globulin Ratio 0.9 (0.9-2) 09/25/20 22:35 Lipase 121 U/L (73-393) 09/25/20 22:35 Procalcitonin < 0.05 ng/ml (0-0.5) 09/25/20 22:38 Digoxin 0.2 ng/ml (0.8-2.0) L 09/25/20 22:38 SARS-CoV-2 Ag (Rapid) Negative (Negative) 09/26/20 00:[address] left hip initial read: Severe degenerative and erosive changes left hip. Left hip joint effusion. Surgical clips on left groin. CT L-spine: No acute lumbar spine fracture. Postsurgical changes of posterior lumbar fusion L2-S1 without evident hardware complication. Diffuse bony demineralization. 1.9 cm right adrenal adenoma. 1.7 cm simple fluid density cyst left interpolar kidney and large simple fluid density cyst right inferior kidney measuring up to 5.1 cm. EKG as per my interpretation: Rate 85, A. fib, normal axis, T wave abnormalities inferior leads no ischemia
[2020-09-26 01:41] LABS: Magnesium 1.8 mg/dl (1.8-2.4)
[2020-09-26] MEDS: MoRPHine SULFATE 4 MG/ML 1 ML CARP\\VIAL IV PRN (01:49)
[2020-09-26] MEDS ORDERED: ACETAMINOPHEN 325 MG TAB PO PRN (02:46)
[2020-09-26] MEDS ORDERED: GLUCOSE 40% GEL 15 GM TUBE PO PRN (02:46)
[2020-09-26] MEDS ORDERED: GLUCAGON FOR INJ 1 MG VIAL SQ PRN (02:46)
[2020-09-26] MEDS ORDERED: LORazepam 0.25 MG/0.5 ML VIAL IV PRN (02:46)
[2020-09-26] MEDS ORDERED: CARBOHYDRATES FOR HYPOGLYCEMIA PO PRN (02:46)
[2020-09-26] MEDS ORDERED: NITROGLYCERIN SL 0.4 MG/TAB TAB SL PRN (02:46)
[2020-09-26] MEDS ORDERED: DEXTROSE 50% 50 ML SYRINGE IV PRN (02:46)
[2020-09-26] MEDS ORDERED: PROMETHAZINE HCL 12.5 MG in SODIUM CHLORIDE 0.9% 50 ML IV PRN (02:46)
[2020-09-26] MEDS ORDERED: MoRPHine SULFATE 4 MG/ML 1 ML CARP\\VIAL IV PRN (02:46)
[2020-09-26] MEDS ORDERED: GLUCOSE 10 TABS/TUBE PO PRN (02:46)
[2020-09-26] MEDS ORDERED: MAGNESIUM SULFATE / D5W 1 GM/100 ML BAG IV ONE (02:56)
[2020-09-26] MEDS ORDERED: SODIUM CHLOR 0.45% + 20MEQ KCL 20 MEQ/1,000 ML BAG IV ONE (03:00)
[2020-09-26] MEDS ORDERED: HYDROmorphone INJ 1 MG/ML SYRINGE IV STA (03:19)
[2020-09-26] MEDS: HYDROmorphone INJ 0.5 MG/0.5 ML SYR IV PRN ×2 (03:25→17:39)
[2020-09-26] MEDS: LIDOCAINE 5% 1 PATCH TD SCH (03:45)
[2020-09-26] MEDS: INSULIN ASPART 100 UNITS/ML 3 ML PEN SC SCH ×5 (03:54→21:14)
[2020-09-26 06:33] LABS: Basophils # (auto) 0.04 K/uL (0-0.2); Basophils % (auto) 0.4 %; Eosinophils # (auto) 0.17 K/uL (0-0.5); Eosinophils % (auto) 1.6 %; Hematocrit (blood only) 38.2 % (37-47); Hemoglobin 13.1 g/dL (12.0-16.0); Immature Granulocytes # (auto) 0.02 K/uL (0.00-0.02); Immature Granulocytes % (auto) 0.2 %; Lymphocytes # (auto) 2.65 K/uL (1.2-3.4); Lymphocytes % (auto) 24.2 %; Mean Corpuscular Hemoglobin 31.1 pg (25-34); Mean Corpuscular Hgb Conc 34.3 g/dL (32-36); Mean Corpuscular Volume 90.7 fL (80-100); Mean Platelet Volume 10.8 fL (7.4-10.4); Monocytes # (auto) 1.02 K/uL (0.11-0.59); Monocytes % (auto) 9.3 %; Neutrophils # (auto) 7.03 K/uL (1.4-6.5); Neutrophils % (auto) 64.3 %; Platelet Count 303 K/uL (130-400); RDW Standard Deviation 46.1 fL (36.4-46.3); Red Blood Count 4.21 M/uL (4.2-5.4); White Blood Count 10.93 K/uL (4.8-10.8)
[2020-09-26 06:54] LABS: Estimated Average Glucose 131 mg/dl; Hemoglobin A1C 6.2 % (4.5-5.6)
[2020-09-26 07:00] LABS: BUN Creatinine Ratio 15.3 (10-20); Calcium 8.3 mg/dl (8.5-10.1); Creatinine Clr Calc Pharmacy 54.8 ml/min; Est GFR (Non-African American) 64.7; Potassium 4.5 mmol/L (3.5-5.1)
--- NOTE | 2020-09-26 07:10 | CT Scan Report ---
CT lumbar spine wo con CT DOSE: CLINICAL HISTORY: Severe back pain with left leg radiculopathy. TECHNIQUE: Helical images were acquired in transverse plane. Reformatted sagittal and coronal images were reviewed. A dose lowering technique was utilized adhering to the principles of ALARA. CONTRAST: No contrast was administered COMPARISON STUDY: MRI dated 04/24/2020 FINDINGS: There are postsurgical changes of an L2-S1 spinal decompression and fusion with pedicle screw fixatio n. There is mild retrolisthesis of L2 on L3 which is felt to be degenerative. There is artifact secondary to the spinal hardware. No acute fractures or subluxations are visualized. There is no evidence of significant bony foraminal stenosis. Incidental note is made of 2.5 cm right adrenal adenoma. Bilateral renal cysts are suspected. IMPRESSION: 1. Postsurgical changes of an L2-S1 spinal decompression and fusion 2. No evidence of significant bony foraminal stenosis 3. 2.5 cm right adrenal adenoma 4. No acute fractures ACT 112: Negative or not required by law. Electronically signed by: Karri Arzola M.D. 09/26/2020 7:09 AM
--- NOTE | 2020-09-26 07:29 | CT Scan Report ---
CT hip LT wo con HISTORY: 75 years-old Female pain acute left-sided hip pain COMPARISON: CT lumbar spine of same day, CT left hip 04/23/2020 TECHNIQUE: Multiple axial CT images of the left hip were obtained without the use of IV contrast. A d ose lowering technique was used consistent with the principals of HUMBERTO. FINDINGS: Classifications Officer Cc/Cm localizer images demonstrate lumbar spinal fusion hardware with herniorrhaphy changes of the lo wer pelvic wall. Surgical clips project over the left inguinal tissues. 4 mm calcification is noted a t the midline near the base of the urinary bladder, unchanged. No acute process of the imaged intrape lvic structures. Mildly demineralized appearance of the bones. No acute fracture or dislocation identified. There is s evere joint space narrowing with prominent subcortical cystic change, subchondral sclerosis and raysa nal osteophytosis of the left femoral acetabular joints. Subchondral lucencies in the superior aspect of the femoral head are redemonstrated there is no significant change from the 04/23/2020 exam. There is no acute fracture or dislocation identified. Calcified loose bodies are noted within the anterior joint space measuring up to 12 mm. Synovial thickening with probable small joint effusion. IMPRESSION: 1. No acute fracture or dislocation. 2. Severe severe joint space narrowing with pronounced subchondral sclerosis and subcortical cystic c hanges/erosions are redemonstrated. Underlying avascular necrosis would be difficult to exclude. 3. Unchanged small joint effusion with numerous corticated intra-articular loose bodies. ACT 112: Negative or not required by law. The above report was generated using voice recognition software. It may contain grammatical, syntax o r spelling errors. Electronically signed by: Luiz Wiseman M.D. 09/26/2020 7:28 AM
[2020-09-26] MEDS: POTASSIUM CHLORIDE 10 MEQ TABCR PO SCH (08:49)
[2020-09-26] MEDS: ASPIRIN 81 MG ECTAB PO SCH (08:49)
[2020-09-26] MEDS: ATORVASTATIN 40 MG TAB PO SCH (08:50)
[2020-09-26] MEDS: METOPROLOL SUCC 50MG EXT REL TAB PO SCH ×2 (08:50→20:36)
[2020-09-26] MEDS: LEVOTHYROXINE SODIUM 25 MCG TABLET PO SCH (08:50)
[2020-09-26] MEDS: SERTRALINE HCL 50 MG TABLET PO SCH (08:51)
--- NOTE | 2020-09-26 09:21 | Electrocardiogram Report ---
Test Reason : Blood Pressure : / mmHG Vent. Rate : 086 BPM Atrial Rate : 220 BPM P-R Int : 000 ms QRS Dur : 084 ms QT Int : 366 ms P-R-T Axes : 000 034 013 degrees QTc Int : 437 ms Atrial fibrillation Abnormal ECG When compared with ECG of 05-SEP-2020 00:27, No significant change was found Confirmed by Neo Lemus ([id number]) on 09/26/2020 9:20:44 AM Referred By: REFERRED SELF Confirmed By:Neo Lemus
[2020-09-26] MEDS: oxyCODONE HCL IR 5 MG TAB (IMMEDIATE RELEASE) PO PRN ×2 (11:25→20:39)
[2020-09-26] MEDS ORDERED: NURSING DECISION MEDICATION ONE (12:37)
[2020-09-26] MEDS ORDERED: MICONAZOLE NITRATE POWDER 43 GM EXT PRN (13:00)
[2020-09-26] MEDS: SODIUM CHLORIDE 0.9% 1000ML 1,000 ML IV SCH (16:07)
[2020-09-26] MEDS: DIGOXIN 0.125 MG TAB PO SCH (17:29)
--- NOTE | 2020-09-26 18:08 | Hospitalist Progress Note ---
Date of Service September 26, 2020 Assessment & Plan (1) Hip pain: Intractable chronic left hip/Back Pain Vascular necrosis Failed outpatient conservative management with medications, cortisone injections and PT -Left Hip CT:No acute fracture or dislocation. Severe severe joint space narrow ing with pronounced subchondral sclerosis and subcortical cystic changes/erosions are redemonstrated. Underlying avascular necrosis would be difficult to exclude. Unchanged small joint effusion with numerous corticated intra-articular loose bodies. -Lumbar CT: Postsurgical changes of an L2-S1 spinal decompression and fusion. No evidence of significant bony foraminal stenosis. 2.5 cm right adrenal adenoma. No acute fractures -Pain control -Continue gabapentin, sertraline PT OT Orthopedics consulted Eliquis held for now Hypertension Elevated blood pressure likely situational secondary to pain Continue metoprolol Monitor Chronic atrial fibrillation Rate control with metoprolol, digoxin Apixaban held for now Heparin SQ while off Apixaban Chronic diastolic heart failure No signs of exacerbation Resume home diuretics as able CAD S/P stent (08/2019) Continue aspirin, statin, metoprolol Hyperlipidemia on statin DM II Diet controlled Last HbA1C: 6.22 May 2020 Continue insulin therapy while hospitalized Monitor BGs Breast cancer S/P surgery and tamoxifen Rx H/O DVT Resume apixaban as able Hypothyroidism Continue levothyroxine Hypokalemia Replete electrolytes as able Monitor DVT Px: Was on Apixaban Heparin SQ while off Apixaban Code Status Full code Disposition PT/OT prior to discharge Admission and Anticipated Discharge Date Admission Date: September 26, 2020 Subjective Patient is seen and examined at bedside Complains of left hip and back pain RN reported decreased urine output today Denies chest pain, shortness of breath, dizziness, nausea, abdominal pain offers no other complaints Review of Systems Review of Systems: All systems reviewed & are unremarkable except as noted in HPI & below Physical Exam Physical Exam: Physical Exam: Vitals signs as noted above General Appearance:Obese, no apparent distress Head: normocephalic, Atraumatic Eyes: normal inspection, EOMI Neck: supple, Trachea midline Respiratory/Chest: Normal breath sounds, CTA Cardiovascular: Irregularly Irregular, + murmur Abdomen/GI:Soft, Non tender, Bowel sounds present Extremities/Musculoskelatal:normal inspection, 1+ B/L leg edema, 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 Neurologic/Psych:AAOX3, grossly no focal neurological deficits Skin: normal color, warm Results & Data Results & Data ([facility]) Vital Signs (Past 12 Hours) Vital Signs Temp Pulse Pulse Resp BP Pulse Ox 09/26/20 17:45 89 144/81 H 09/26/20 17:29 89 09/26/20 16:00 99/61 L 09/26/20 15:44 36.4 C L 67 18 88/49 L 97 09/26/20 12:00 78 09/26/20 11:18 36.4 C L 73 16 122/78 96 09/26/20 07:19 36.5 C 87 16 119/78 96 Laboratory Results Short CBC 09/25/20 09/26/20 Range/Units 22:35 06:03 WBC 11.78 H 10.93 H (4.8-10.8) K/uL Hgb 14.7 13.1 (12.0-16.0) g/dL Hct 43.1 38.2 (37-47) % Plt Count 334 303 (130-400) K/uL BMP 09/25/20 09/26/20 22:35 06:03 Sodium 144 142 Potassium 3.4 L 4.5 D Chloride 111 H 111 H Carbon Dioxide 26 27 BUN 14 14 Creatinine 1.08 0.88 Glucose 131 H 103 H Calcium 8.9 8.3 L Liver Function 09/25/20 Range/Units 22:35 Total Bilirubin 0.4 (0.2-1) mg/dl AST 13 L (15-37) U/L ALT 14 (12-78) U/L Alkaline Phosphatase 90 (45-117) U/L Albumin 3.5 (3.4-5.0) gm/dl
[2020-09-26] MEDS: HEPARIN SOD 5,000 UNIT/0.5 ML VIAL SQ SCH (20:35)
--- NOTE | 2020-09-26 20:35 | Orthopedic Consultation ---
Date of Consultation September 26, 2020 Assessment & Plan (1) Degenerative joint disease of left hip: Intractable left hip pain secondary to exacerbation of severe left hip DJD and avascular necrosis. Limited relief from pain medications. Her clinical exam is consistent with IA origin. Patient would benefit from L ANTOINETTE sooner than her currently scheduled surgery, timing discussed at length, patient is currently scheduled for elective L ANTOINETTE on 10/11/20 however due to worsening ambulatory dysfunction and limited relief with pain control will proceed with surgical planning at this time. Per cardiology recommendations, will need to hold Eliquis for 3 days. Last dose 09/25/20. Will coordinate with OR. Tentatively planning on surgery 09/28/20 or 09/29/20. Will need appropriate medical clearances prior to replacement surgery. Hold anticoagulation. WBAT LLE, ambulate with assistive device. Thank you for the consultation. History of Present Illness Reason for Consultation: Intractable left hip pain Attending Physician: Grady Griffiths MD History of Present Illness The patient is a 75 year old female known to my office who presented to [facility] secondary to intractable left hip pain. Patient seen previously for severe left hip DJD and underlying avascular necrosis. Tentatively scheduled for left ANTOINETTE on 10/11/20. Due to worsening left hip pain, inability to ambulate the patient was admitted for further evaluation and treatment. The patient denies trauma to the left hip. Patient also has history of chronic lumbago and previous spinal fusion. Denies radicular symptoms to LLE. Allergies Allergy/AdvReac Type Severity Reaction Status Date / Time adhesive Allergy Unknown HEAVIER Verified 09/25/20 23:01 SURG TAPE-REDNESS SORE SKIN cat dander Allergy Unknown ITCHY Verified 09/25/20 23:01 NOSE, ITCHY EYES,RUNNY NOSE grass pollen-perennial rye, Allergy Unknown GRASS,MOLD-ITCHY Verified 09/25/20 23:01 standar EYES RUNNY NOSE latex Allergy Unknown CONTACT Verified 09/25/20 23:01 DERMATITIS tetanus toxoid, adsorbed Allergy Unknown SWELLING Verified 09/25/20 23:01 AT SITE KOLE Inhibitors AdvReac Unknown COUGH Unverified 09/25/20 23:01 Home Medications Medication Instructions Recorded Confirmed Type gabapentin 300 mg PO HS 07/03/19 09/25/20 History apixaban 5 mg tablet 5 mg PO BID 08/19/19 09/25/20 History levothyroxine 25 mcg PO QAM 08/27/19 09/25/20 History atorvastatin 40 mg PO QAM #30 tab 09/02/19 09/25/20 Rx nitroglycerin [Nitrostat] 0.4 mg SUBLINGUAL Q5M PRN #25 tab 09/02/19 09/25/20 Rx digoxin 125 mcg PO 3XWK 04/19/20 09/25/20 History potassium chloride 10 meq PO DAILY 04/19/20 09/25/20 History spironolactone 25 mg PO QAM 04/19/20 09/25/20 History albuterol sulfate [Ventolin HFA] 1 inh INHALATION QID PRN 05/19/20 09/25/20 History aspirin [Aspirin Low Dose] 81 mg PO DAILY 09/05/20 09/25/20 History metoprolol succinate 100 mg PO BID 09/05/20 09/25/20 History sertraline 50 mg PO QAM #30 tab 09/09/20 09/25/20 Rx oxycodone-acetaminophen 1 tab PO Q6 PRN 09/25/20 09/25/20 History Patient History Medical History Anxiety Arthritis Asthma rescue inhaler weekly PRN Atrial fibrillation hx cardioversion (unsuccessful) Chronic diastolic heart failure Coronary artery disease 08/31/19 thrombus RCA, PCI with JAILENE Depression Depression with suicidal ideation Dyslipidemia History of cardioversion History of DVT (deep vein thrombosis) ~1999. Hx of breast cancer left Hypertension Hypothyroidism Kidney stones Prediabetes Scoliosis Urinary tract infection 04/19/20 treated at [facility] -- sent to [facility] in [place], [place] d/t hallucinations and further treatment for ~1 week. currently at home. Surgical History History of bilateral tubal ligation History of cataract surgery bilateral History of section x2 History of colonoscopy History of left knee replacement History of right knee joint replacement Hx of lumpectomy Left lumpectomy with lymph node removal S/P bunionectomy bilateral S/P left inguinal hernia repair x2 S/P QUINCY-BSO Status post coronary artery stent placement 08/31/19 thrombus RCA, PCI with JAILENE ([facility]). Follows with Sara Nunez. Status post lumbar surgery [facility] Family History Other Heart disease No family history of adverse response to anesthesia Social History Smoking Status: Never smoker Second Hand Exposure: Yes (hx); Hx Alcohol Use: Yes Alcohol type: wine Hx Substance Use: No Preferred Language: Russian Communication Ability: Effective Laboratory Clerk Required: No Beliefs That Will Affect Care: None marital status: / Current Living Situation: Family Current Living Situation Comment: Lives with son, DIL and their 4 kids Feels Safe at Home: Yes Safety Concerns: Feels Safe At This Time Assistive Devices: Glasses and Walker Review of Systems Review of Systems: All systems reviewed & are unremarkable except as noted in HPI & below Constitutional: as per Subjective / HPI Physical Exam Physical Exam: LLE NVSI +EHL/FHL/TA/GS SILT grossly, +2 DP pulse, compartments soft NT, limited painful ROM of the hip, antalgic gait. Constitutional: WD/WN, vitals as above Results & Data ([facility]) Vital Signs (Past 12 Hours) Vital Signs Temp Pulse Pulse Resp BP Pulse Ox 09/26/20 20:11 36.6 C 85 18 96/63 L 98 09/26/20 18:09 75 09/26/20 17:45 89 144/81 H 09/26/20 17:29 89 09/26/20 16:00 99/61 L 09/26/20 15:44 36.4 C L 67 18 88/49 L 97 09/26/20 12:00 78 09/26/20 11:18 36.4 C L 73 16 122/[address] hip LT wo con HISTORY: 75 years-old Female pain acute left-sided hip pain COMPARISON: CT lumbar spine of same day, CT left hip 04/23/2020 TECHNIQUE: Multiple axial CT images of the left hip were obtained without the use of IV contrast. A dose lowering technique was used consistent with the principals of HUMBERTO. FINDINGS: Shop Helper localizer images demonstrate lumbar spinal fusion hardware with herniorrhaphy changes of the lower pelvic wall. Surgical clips project over the left inguinal tissues. 4 mm calcification is noted at the midline near the base of the urinary bladder, unchanged. No acute process of the imaged intrapelvic structures. Mildly demineralized appearance of the bones. No acute fracture or dislocation identified. There is severe joint space narrowing with prominent subcortical cystic change, subchondral sclerosis and marginal osteophytosis of the left femoral acetabular joints. Subchondral lucencies in the superior aspect of the femoral head are redemonstrated there is no significant change from the 04/23/2020 exam. There is no acute fracture or dislocation identified. Calcified loose bodies are noted within the anterior joint space measuring up to 12 mm. Synovial thickening with probable small joint effusion. IMPRESSION: 1. No acute fracture or dislocation. 2. Severe severe joint space narrowing with pronounced subchondral sclerosis and subcortical cystic changes/erosions are redemonstrated. Underlying avascular necrosis would be difficult to exclude. 3. Unchanged small joint effusion with numerous corticated intra-articular loose bodies.
[2020-09-26] MEDS: GABAPENTIN 300 MG CAP PO SCH (20:36)
[2020-09-27] MEDS: SODIUM CHLORIDE 0.9% 1000ML 1,000 ML IV SCH (04:30)
[2020-09-27 06:04] LABS: Hematocrit (blood only) 35.8 % (37-47); Hemoglobin 11.4 g/dL (12.0-16.0); Mean Corpuscular Hemoglobin 29.4 pg (25-34); Mean Corpuscular Hgb Conc 31.8 g/dL (32-36); Mean Corpuscular Volume 92.3 fL (80-100); Mean Platelet Volume 10.7 fL (7.4-10.4); Platelet Count 254 K/uL (130-400); RDW Coefficient of Variation 14.2 % (11.5-14.5); RDW Standard Deviation 48.1 fL (36.4-46.3); Red Blood Count 3.88 M/uL (4.2-5.4); White Blood Count 8.26 K/uL (4.8-10.8)
[2020-09-27 06:36] LABS: BUN Creatinine Ratio 20.8 (10-20); Calcium 8.1 mg/dl (8.5-10.1); Creatinine Clr Calc Pharmacy 54.2 ml/min; Est GFR (Non-African American) 63.8; Magnesium 2.1 mg/dl (1.8-2.4); Potassium 4.6 mmol/L (3.5-5.1)
[2020-09-27] MEDS: LEVOTHYROXINE SODIUM 25 MCG TABLET PO SCH (08:29)
[2020-09-27] MEDS: METOPROLOL SUCC 50MG EXT REL TAB PO SCH ×2 (08:29→20:54)
[2020-09-27] MEDS: LIDOCAINE 5% 1 PATCH TD SCH (08:30)
[2020-09-27] MEDS: POTASSIUM CHLORIDE 10 MEQ TABCR PO SCH (08:30)
[2020-09-27] MEDS: ATORVASTATIN 40 MG TAB PO SCH (08:30)
[2020-09-27] MEDS: ASPIRIN 81 MG ECTAB PO SCH (08:30)
[2020-09-27] MEDS: INSULIN ASPART 100 UNITS/ML 3 ML PEN SC SCH ×4 (08:32→21:17)
[2020-09-27] MEDS: SERTRALINE HCL 50 MG TABLET PO SCH (08:34)
[2020-09-27] MEDS: HEPARIN SOD 5,000 UNIT/0.5 ML VIAL SQ SCH ×2 (08:35→20:53)
[2020-09-27] MEDS: oxyCODONE HCL IR 5 MG TAB (IMMEDIATE RELEASE) PO PRN ×2 (08:38→21:02)
--- NOTE | 2020-09-27 20:33 | Hospitalist Progress Note ---
Date of Service September 27, 2020 Assessment & Plan (1) Hip pain: Intractable chronic left hip/Back Pain Vascular necrosis Failed outpatient conservative management with medications, cortisone injections and PT -Left Hip CT:No acute fracture or dislocation. Severe severe joint space narrow ing with pronounced subchondral sclerosis and subcortical cystic changes/erosions are redemonstrated. Underlying avascular necrosis would be difficult to exclude. Unchanged small joint effusion with numerous corticated intra-articular loose bodies. -Lumbar CT: Postsurgical changes of an L2-S1 spinal decompression and fusion. No evidence of significant bony foraminal stenosis. 2.5 cm right adrenal adenoma. No acute fractures -Pain control -Continue gabapentin, sertraline PT OT Appreciate Orthopedics Input Eliquis held as planned for surgery Plan for left total hip arthroplasty on . Hypertension Elevated blood pressure likely situational secondary to pain Continue metoprolol Monitor Chronic atrial fibrillation Rate control with metoprolol, digoxin Apixaban held for now Heparin SQ while off Apixaban Chronic diastolic heart failure No signs of exacerbation Resume home diuretics as able CAD S/P stent (08/2019) Continue aspirin, statin, metoprolol Hyperlipidemia on statin DM II Diet controlled Last HbA1C: 6.22 May 2020 Continue insulin therapy while hospitalized Monitor BGs Breast cancer S/P surgery and tamoxifen Rx H/O DVT Resume apixaban as able Hypothyroidism Continue levothyroxine Hypokalemia Replete electrolytes as able Monitor DVT Px: Was on Apixaban Heparin SQ while off Apixaban Code Status Full code Disposition PT/OT prior to discharge Admission and Anticipated Discharge Date Admission Date: September 26, 2020 Subjective Patient is seen and examined at bedside Persistent left hip pain with movement Plan for arthroplasty on No new complaints Sitting in chair comfortably this morning Denies chest pain, shortness of breath, dizziness, nausea, abdominal pain offers no other complaints Review of Systems Review of Systems: All systems reviewed & are unremarkable except as noted in HPI & below Physical Exam Physical Exam: Physical Exam: Vitals signs as noted above General Appearance:Obese, no apparent distress Head: normocephalic, Atraumatic Eyes: normal inspection, EOMI Neck: supple, Trachea midline Respiratory/Chest: Normal breath sounds, CTA Cardiovascular: Irregularly Irregular, + murmur Abdomen/GI:Soft, Non tender, Bowel sounds present Extremities/Musculoskelatal:normal inspection, 1+ B/L leg edema, 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 Neurologic/Psych:AAOX3, grossly no focal neurological deficits Skin: normal color, warm Results & Data Results & Data ([facility]) Vital Signs (Past 12 Hours) Vital Signs Temp Pulse Pulse Resp BP Pulse Ox 09/27/20 19:00 36.5 C 83 20 120/70 97 09/27/20 16:00 71 09/27/20 15:56 36.5 C 72 19 121/74 98 Laboratory Results Short CBC 09/27/20 Range/Units 05:25 WBC 8.26 (4.8-10.8) K/uL Hgb 11.4 L (12.0-16.0) g/dL Hct 35.8 L (37-47) % Plt Count 254 (130-400) K/uL BMP 09/27/20 05:25 Sodium 139 Potassium 4.6 Chloride 111 H Carbon Dioxide 27 BUN 19 H Creatinine 0.89 Glucose 87 Calcium 8.1 L
[2020-09-27] MEDS: GABAPENTIN 300 MG CAP PO SCH (20:55)
[2020-09-28 07:31] LABS: Hematocrit (blood only) 35.6 % (37-47); Hemoglobin 11.6 g/dL (12.0-16.0); Mean Corpuscular Hemoglobin 29.7 pg (25-34); Mean Corpuscular Hgb Conc 32.6 g/dL (32-36); Mean Corpuscular Volume 91.3 fL (80-100); Mean Platelet Volume 10.7 fL (7.4-10.4); Platelet Count 235 K/uL (130-400); RDW Coefficient of Variation 13.7 % (11.5-14.5); RDW Standard Deviation 45.2 fL (36.4-46.3); White Blood Count 6.41 K/uL (4.8-10.8)
[2020-09-28 08:00] LABS: BUN Creatinine Ratio 19.2 (10-20); Calcium 8.7 mg/dl (8.5-10.1); Creatinine Clr Calc Pharmacy 52.3 ml/min; Est GFR (African American) 70.2; Est GFR (Non-African American) 60.5; Potassium 4.5 mmol/L (3.5-5.1)
[2020-09-28] MEDS: oxyCODONE HCL IR 5 MG TAB (IMMEDIATE RELEASE) PO PRN ×2 (08:44→21:02)
[2020-09-28] MEDS: LIDOCAINE 5% 1 PATCH TD SCH (08:44)
[2020-09-28] MEDS: ATORVASTATIN 40 MG TAB PO SCH (08:45)
[2020-09-28] MEDS: POTASSIUM CHLORIDE 10 MEQ TABCR PO SCH (08:45)
[2020-09-28] MEDS: ASPIRIN 81 MG ECTAB PO SCH (08:45)
[2020-09-28] MEDS: SERTRALINE HCL 50 MG TABLET PO SCH (08:45)
[2020-09-28] MEDS: METOPROLOL SUCC 50MG EXT REL TAB PO SCH ×2 (08:45→20:58)
[2020-09-28] MEDS: INSULIN ASPART 100 UNITS/ML 3 ML PEN SC SCH ×4 (08:49→20:09)
[2020-09-28] MEDS: HEPARIN SOD 5,000 UNIT/0.5 ML VIAL SQ SCH ×2 (09:28→20:57)
[2020-09-28] MEDS: LEVOTHYROXINE SODIUM 25 MCG TABLET PO SCH (11:18)
--- NOTE | 2020-09-28 12:30 | Orthopedic Progress Note ---
Date of Service September 28, 2020 Assessment & Plan (1) Degenerative joint disease of left hip: Scheduled patient for L ANTOINETTE on 09/29/20, pending medical clearance/optimization. NPO after midnight, hold anticoagulation. Will obtain up to date XRs, [facility] unable to perform with marker ball. Admission and Anticipated Discharge Date Admission Date: September 26, 2020 Subjective Patient seen resting in bed, unchanged pain to left hip. Review of Systems Review of Systems: All systems reviewed & are unremarkable except as noted in HPI & below Constitutional: as per Subjective / HPI Physical Exam Physical Exam: LLE NVSI +EHL/FHL/TA/GS SILT grossly, +2 DP pulse, compartments soft NT, limited painful ROM of the hip, antalgic gait. Constitutional: WD/WN, vitals as above Results & Data ([facility]) Vital Signs (Past 12 Hours) Vital Signs Temp Pulse Resp BP Pulse Ox 09/28/20 11:29 36.5 C 65 16 110/53 L 98 09/28/20 07:55 36.5 C 68 16 117/59 L 98 09/28/20 04:00 36.4 C L 69 18 108/66 96
--- NOTE | 2020-09-28 13:12 | XRay Report ---
XR hip LT 2V w pelvis CLINICAL HISTORY: Severe left hip pain. COMPARISON STUDY: Left hip 04/22/2020. FINDINGS: Posterior decompression fusion within the visualized lumbar spine. Multiple suture coils se en within the pelvis. No acute fracture or dislocation within the pelvis or right hip. Soft tissues a re unremarkable. Severe cartilage space narrowing with subchondral sclerosis and subchondral cystic c hange within the bilateral hips. There is [id number] articulation. This is consistent with osteoart hritis. Progressive lucency within the left superior femoral head and sclerosis within the right supe rior femoral head. There is mild depression of the left superior femoral head measuring up to 2 mm. T his has progressed and is consistent with a subchondral fracture in the setting of avascular necrosis . Minimal right femoral head collapse remains unchanged. IMPRESSION: 1. Severe osteoarthritis within the bilateral hips with [id number] articulation. 2. Redemonstration of the bilateral femoral head avascular necrosis. This has progressed on the left which now demonstrates up to 2 mm of depression of the superior femoral head consistent with an assoc iated subchondral fracture. ACT 112: Negative or not required by law. Electronically signed by: Demetruis Caraballo M.D. 09/28/2020 1:11 PM
--- NOTE | 2020-09-28 16:02 | Anesthesiology Consultation ---
Date of Service September 28, 2020 Assessment & Plan (1) Encounter for pre-operative examination: Chart Review Chart Review: Acceptable Risk for Surgery and Patient NOT seen in Pre Admission Testing Appears patient's eliquis was held on 09/26/2020 when she came to the ER for worsening hip pain. Currently maintained on SQ heparin. Will need to confirm with patient morning of surgery. will order preop BlogGlue covDesmos test Consults Requested none Outpatient [facility] Cardiology preop eval last May 2020. Updated outpatient TTE as follows : Normal LV systolic, LVEF 55%, mild MR, mild global hypokinesis now resolved. Cardiology provider recommended stopping Plavix home Rx for good; holding Eliquis for 3 days prior to date of surgery and continuing aspirin 81 mg without interruption perioperatively. History Surgery Operation Date: 09/29/20 11:45 Proposed Procedures p Left Total Hip Arthroplasty - Dilip Palmer DO Height/Weight Height: 5 ft 1 in Weight: 84.5 kg Allergies Allergy/AdvReac Type Severity Reaction Status Date / Time adhesive Allergy Unknown HEAVIER Verified 09/25/20 23:01 SURG TAPE-REDNESS SORE SKIN cat dander Allergy Unknown ITCHY Verified 09/25/20 23:01 NOSE, ITCHY EYES,RUNNY NOSE grass pollen-perennial rye, Allergy Unknown GRASS,MOLD-ITCHY Verified 09/25/20 23:01 standar EYES RUNNY NOSE latex Allergy Unknown CONTACT Verified 09/25/20 23:01 DERMATITIS tetanus toxoid, adsorbed Allergy Unknown SWELLING Verified 09/25/20 23:01 AT SITE KOLE Inhibitors AdvReac Unknown COUGH Unverified 09/25/20 23:01 Medications Home Medications Medication Instructions Recorded Confirmed Last Taken gabapentin 300 mg PO HS 07/03/19 09/25/20 04/18/20 apixaban 5 mg tablet 5 mg PO BID 08/19/19 09/25/20 04/19/20 levothyroxine 25 mcg PO QAM 08/27/19 09/25/20 04/19/20 atorvastatin 40 mg PO QAM #30 tab 09/02/19 09/25/20 04/19/20 nitroglycerin [Nitrostat] 0.4 mg SUBLINGUAL Q5M PRN #25 tab 09/02/19 09/25/20 Unknown digoxin 125 mcg PO 3XWK 04/19/20 09/25/20 04/18/20 potassium chloride 10 meq PO DAILY 04/19/20 09/25/20 04/19/20 spironolactone 25 mg PO QAM 04/19/20 09/25/20 04/19/20 albuterol sulfate [Ventolin HFA] 1 inh INHALATION QID PRN 05/19/20 09/25/20 Unknown aspirin [Aspirin Low Dose] 81 mg PO DAILY 09/05/20 09/25/20 Unknown metoprolol succinate 100 mg PO BID 09/05/20 09/25/20 Unknown sertraline 50 mg PO QAM #30 tab 09/09/20 09/25/20 Unknown oxycodone-acetaminophen 1 tab PO Q6 PRN 09/25/20 09/25/20 Unknown Active Medications Generic Name Dose Route Start Last Admin Trade Name Freq PRN Reason Stop Dose Admin Aspirin 81 mg 09/26/20 09:00 09/28/20 08:45 Aspirin 81 Mg Ectab PO 10/26/20 08:59 81 mg DAILY DAO Administration Atorvastatin Calcium 40 mg 09/26/20 09:00 09/28/20 08:45 Atorvastatin 40 Mg Tab PO 10/26/20 08:59 40 mg QAM DAO Administration Digoxin 0.125 mg 09/26/20 16:00 09/26/20 17:29 Digoxin 0.125 Mg Tab PO 10/26/20 15:59 0.125 mg [id number] DAO Administration Gabapentin 300 mg 09/26/20 21:00 09/27/20 20:55 Gabapentin 300 Mg Cap PO 10/26/20 20:59 300 mg HS DAO Administration Heparin Sodium (Porcine) 5,000 units 09/26/20 21:00 09/28/20 09:28 Heparin Sod 5,000 Unit/0.5 Ml Vial SQ 10/26/20 20:59 Not Given Q12 DAO Hydromorphone HCl 1 mg 09/26/20 03:19 09/26/20 17:39 Hydromorphone Inj 0.5 Mg/0.5 Ml Syr IV 10/10/20 03:18 1 mg Q3H PRN Administration Pain Insulin Aspart 0 units 09/26/20 03:00 09/28/20 13:21 Insulin Aspart 100 Units/Ml 3 Ml Pen SC 10/26/20 02:59 5 units ACHS DAO Administration Levothyroxine Sodium 25 mcg 09/26/20 09:00 09/28/20 11:18 Levothyroxine Sodium 25 Mcg Tablet PO 10/26/20 08:59 25 mcg QAM DAO Administration Lidocaine 1 patch 09/26/20 03:00 09/28/20 08:44 Lidocaine 5% 1 Patch TD 10/26/20 02:59 1 patch QAM DAO Administration Metoprolol Succinate 100 mg 09/26/20 09:00 09/28/20 08:45 Metoprolol Succ 50mg Ext Rel Tab PO 10/26/20 08:59 100 mg BID DAO Administration Miscellaneous 1 ea 09/26/20 15:00 09/27/20 20:54 Remove Lidoderm Patch N/A 10/26/20 14:59 Not Given DAILY@2100 DAO Oxycodone HCl 5 - 10 mg 09/26/20 02:46 09/28/20 08:44 Oxycodone Hcl Ir 5 Mg Tab (Immediate Release) PO 10/10/20 02:45 10 mg QID PRN Administration Pain Potassium Chloride 10 meq 09/26/20 09:00 09/28/20 08:45 Potassium Chloride 10 Meq Tabcr PO 10/26/20 08:59 10 meq DAILY DAO Administration Sertraline HCl 50 mg 09/26/20 09:00 09/28/20 08:45 Sertraline Hcl 50 Mg Tablet PO 10/26/20 08:59 50 mg QAM DAO Administration Past Medical History Medical History Anxiety Arthritis Asthma rescue inhaler weekly PRN Atrial fibrillation hx cardioversion (unsuccessful) Chronic diastolic heart failure Coronary artery disease 08/31/19 thrombus RCA, PCI with JAILENE Depression Depression with suicidal ideation Dyslipidemia History of cardioversion History of DVT (deep vein thrombosis) ~1999. Hx of breast cancer left Hypertension Hypothyroidism Kidney stones Prediabetes Scoliosis Urinary tract infection 04/19/20 treated at [facility] -- sent to [facility] in [place], [place] d/t hallucinations and further treatment for ~1 week. currently at home. Past Family History Family History Other Heart disease No family history of adverse response to anesthesia Past Surgical History Surgical History History of bilateral tubal ligation History of cataract surgery bilateral History of section x2 History of colonoscopy History of left knee replacement History of right knee joint replacement Hx of lumpectomy Left lumpectomy with lymph node removal S/P bunionectomy bilateral S/P left inguinal hernia repair x2 S/P QUINCY-BSO Status post coronary artery stent placement 08/31/19 thrombus RCA, PCI with JAILENE ([facility]). Follows with Sara Nunez. Status post lumbar surgery [facility] Social History Smoking Status: Never smoker Hx Alcohol Use: Yes Alcohol type: wine alcohol intake frequency: holidays/special occasions only Hx Substance Use: No substance use type: does not use Physical Exam Vital Signs Last Vital Signs Temp 36.4 C L 09/28/20 15:44 Pulse 77 09/28/20 15:44 Resp 16 09/28/20 15:44 BP 127/72 09/28/20 15:44 Pulse Ox 97 09/28/20 15:44 Testing Laboratory Results 09/28/20 07:05 09/28/20 07:05 Hemoglobin A1c 6.2 % (4.5-5.6) H 09/25/20 22:35 Blood Type A Positive 09/26/20 06:03 Antibody Screen NEGATIVE 09/26/20 06:03 09/28/20 09/28/20 11:25 07:43 POC Glucose 194 H 76 Electrocardiogram Date: 09/26/20 DICTATED BY: Neo Lemus MD Test Reason : Blood Pressure : / mmHG Vent. Rate : 086 BPM Atrial Rate : 220 BPM P-R Int : 000 ms QRS Dur : 084 ms QT Int : 366 ms P-R-T Axes : 000 034 013 degrees QTc Int : 437 ms Atrial fibrillation Abnormal ECG When compared with ECG of 05-SEP-2020 00:27, No significant change was found Confirmed by Neo Lemus ([id number]) on 09/26/2020 9:20:44 AM Echocardiogram NO found on BORIS with cadioversion in Jun 2019. Other Testing -Lumbar CT: Postsurgical changes of an L2-S1 spinal decompression and fusion. No evidence of significant bony foraminal stenosis. 2.5 cm right adrenal adenoma. No acute fractures
--- NOTE | 2020-09-28 17:23 | Hospitalist Progress Note ---
Date of Service September 28, 2020 Assessment & Plan (1) Hip pain: Intractable chronic left hip/Back Pain Vascular necrosis Failed outpatient conservative management with medications, cortisone injections and PT -Left Hip CT:No acute fracture or dislocation. Severe severe joint space narrow ing with pronounced subchondral sclerosis and subcortical cystic changes/erosions are redemonstrated. Underlying avascular necrosis would be difficult to exclude. Unchanged small joint effusion with numerous corticated intra-articular loose bodies. -Lumbar CT: Postsurgical changes of an L2-S1 spinal decompression and fusion. No evidence of significant bony foraminal stenosis. 2.5 cm right adrenal adenoma. No acute fractures -Pain control -Continue gabapentin, sertraline PT OT Appreciate Orthopedics Input Eliquis held as planned for surgery Planned for left total hip arthroplasty tmw. NPO after midnight Hypertension Elevated blood pressure on presentation Situational secondary to pain BP better Continue metoprolol Monitor Chronic atrial fibrillation Rate control with metoprolol, digoxin Apixaban held for now Heparin SQ while off Apixaban Chronic diastolic heart failure No signs of exacerbation Resume home diuretics as able CAD S/P stent (08/2019) Continue aspirin, statin, metoprolol Hyperlipidemia on statin DM II Diet controlled Last HbA1C: 6.22 May 2020 Continue insulin therapy while hospitalized Monitor BGs Breast cancer S/P surgery and tamoxifen Rx H/O DVT Resume apixaban as able Hypothyroidism Continue levothyroxine Hypokalemia Replete electrolytes as able Monitor DVT Px: Was on Apixaban Heparin SQ while off Apixaban Code Status Full code Disposition PT/OT prior to discharge Admission and Anticipated Discharge Date Admission Date: September 26, 2020 Subjective Patient is seen and examined at bedside Denies any significant left hip pain this morning Plan for left hip arthroplasty tomorrow Offers no other complaints Denies chest pain, dyspnea, dizziness, nausea, abdominal pain Review of Systems Review of Systems: All systems reviewed & are unremarkable except as noted in HPI & below Physical Exam Physical Exam: Physical Exam: Vitals signs as noted above General Appearance:Obese, no apparent distress Head: normocephalic, Atraumatic Eyes: normal inspection, EOMI Neck: supple, Trachea midline Respiratory/Chest: Normal breath sounds, CTA Cardiovascular: Irregularly Irregular, + murmur Abdomen/GI:Soft, Non tender, Bowel sounds present Extremities/Musculoskelatal:normal inspection, 1+ B/L leg edema, Left hip and back hand Neurologic/Psych:AAOX3, grossly no focal neurological deficits Skin: normal color, warm Results & Data Results & Data ([facility]) Vital Signs (Past 12 Hours) Vital Signs Temp Pulse Pulse Resp BP Pulse Ox 09/28/20 16:09 83 09/28/20 15:44 36.4 C L 77 16 127/72 97 09/28/20 11:29 36.5 C 65 16 110/53 L 98 09/28/20 07:55 36.5 C 68 16 117/59 L 98 Laboratory Results Short CBC 09/28/20 Range/Units 07:05 WBC 6.41 (4.8-10.8) K/uL Hgb 11.6 L (12.0-16.0) g/dL Hct 35.6 L (37-47) % Plt Count 235 (130-400) K/uL BMP 09/28/20 07:05 Sodium 141 Potassium 4.5 Chloride 110 H Carbon Dioxide 28 BUN 18 Creatinine 0.93 Glucose 77 Calcium 8.7
[2020-09-28] MEDS: DIGOXIN 0.125 MG TAB PO SCH (17:30)
[2020-09-28] MEDS: GABAPENTIN 300 MG CAP PO SCH (20:58)
[2020-09-29 06:24] LABS: Hematocrit (blood only) 36.1 % (37-47); Hemoglobin 11.9 g/dL (12.0-16.0); Mean Corpuscular Hemoglobin 29.8 pg (25-34); Mean Corpuscular Volume 90.5 fL (80-100); Mean Platelet Volume 11.1 fL (7.4-10.4); Platelet Count 244 K/uL (130-400); RDW Coefficient of Variation 13.5 % (11.5-14.5); RDW Standard Deviation 44.7 fL (36.4-46.3); Red Blood Count 3.99 M/uL (4.2-5.4); White Blood Count 7.43 K/uL (4.8-10.8)
[2020-09-29] MEDS ORDERED: BUPIVACAINE 0.5 % 5 MG/1 ML PF 10ML VIAL ONE (06:35)
[2020-09-29 06:45] LABS: BUN Creatinine Ratio 22.3 (10-20); Calcium 8.5 mg/dl (8.5-10.1); Est GFR (African American) 79.4; Est GFR (Non-African American) 68.5; Potassium 4.2 mmol/L (3.5-5.1)
[2020-09-29] MEDS: METOPROLOL SUCC 50MG EXT REL TAB PO SCH ×2 (09:08→20:47)
[2020-09-29] MEDS: ASPIRIN 81 MG ECTAB PO SCH (09:09)
[2020-09-29] MEDS: POTASSIUM CHLORIDE 10 MEQ TABCR PO SCH (09:09)
[2020-09-29] MEDS: LEVOTHYROXINE SODIUM 25 MCG TABLET PO SCH (09:09)
[2020-09-29] MEDS: ATORVASTATIN 40 MG TAB PO SCH (09:09)
[2020-09-29] MEDS: SERTRALINE HCL 50 MG TABLET PO SCH (09:09)
[2020-09-29] MEDS: HEPARIN SOD 5,000 UNIT/0.5 ML VIAL SQ SCH ×2 (09:12→20:47)
[2020-09-29] MEDS: LIDOCAINE 5% 1 PATCH TD SCH (09:13)
[2020-09-29] MEDS: INSULIN ASPART 100 UNITS/ML 3 ML PEN SC SCH ×4 (09:16→20:47)
[2020-09-29] MEDS: oxyCODONE HCL IR 5 MG TAB (IMMEDIATE RELEASE) PO PRN (09:21)
[2020-09-29] MEDS ORDERED: ORTHO JOINT ANESTHETIC ONE (10:39)
[2020-09-29] MEDS ORDERED: BACITRACIN INJ 50,000 UNIT VIAL ONE (10:39)
[2020-09-29] MEDS ORDERED: ROPIVACAINE 0.5% HCL/PF 150 MG, BUPIVACAINE 0.75% MPF 20 ML, EPINEPHrine 30MG/30ML (OR ... INFIL ONE (11:00)
[2020-09-29] MEDS ORDERED: MIDAZOLAM HCL 1 MG/ML 2ML VIAL ONE (13:05)
[2020-09-29] MEDS ORDERED: ONDANSETRON INJ 2 MG/ML 2 ML VIAL ONE (13:05)
[2020-09-29] MEDS ORDERED: LIDOCAINE HCL 2% 2 ML VIAL/AMP(20MG/ML) INFIL ONE (13:05)
[2020-09-29] MEDS ORDERED: PROPOFOL IV EMULSION 10 MG/ML 20 ML VIAL IV ONE (13:05)
--- NOTE | 2020-09-29 14:01 | History & Physical Bridge Note ---
Date of Service September 29, 2020 History & Physical Bridge Note I have examined the patient, reviewed the History & Physical and in the interval since the performance of the History & Physical I have noted the following changes of clinical significance: no changes noted
--- NOTE | 2020-09-29 14:03 | Orthopedic Progress Note ---
Date of Service September 29, 2020 Assessment & Plan (1) Degenerative joint disease of left hip: The patient is a 75-year-old female who presents with severe progressive left hip DJD/AVN who has failed outpatient conservative treatments. I indicated the patient for a total hip replacement and the risks and benefits were explained in detail which included but not limited to infection, bleeding, blood clot, damage to surrounding bone, nerves, vessels, soft tissue, hip dislocation, failure of the prosthesis, leg length discrepancy, need for additional surgery and . The patient agreed to proceed with replacement of the hip and informed consent was obtained. Appropriate clearances were obtained. Admission and Anticipated Discharge Date Admission Date: September 26, 2020 Subjective Patient seen in preoperative holding, comfortable, no acute issues, medically optimized for surgery. Review of Systems Review of Systems: All systems reviewed & are unremarkable except as noted in HPI & below Constitutional: as per Subjective / HPI Physical Exam Physical Exam: LLE NVSI +EHL/FHL/TA/GS SILT grossly, +2 DP pulse, compartments soft NT, limited painful range of motion of the hip, antalgic gait. Constitutional: WD/WN, vitals as above Results & Data ([facility]) Vital Signs (Past 12 Hours) Vital Signs Temp Pulse Pulse Resp BP Pulse Ox 09/29/20 13:00 36.6 C 73 20 122/77 97 09/29/20 11:43 36.6 C 72 20 114/77 98 09/29/20 08:14 36.5 C 66 20 113/65 92 09/29/20 07:34 65 09/29/20 03:41 69 09/29/20 03:31 36.7 C 73 18 92/62 L 94
[2020-09-29] MEDS ORDERED: ATROPINE SULFATE 0.1 MG/ML 10ML SYR IV PRN (14:06)
[2020-09-29] MEDS ORDERED: ONDANSETRON INJ 2 MG/ML 2 ML VIAL IV PRN ×2 (14:06→18:05)
[2020-09-29] MEDS ORDERED: KETOROLAC 30 MG/ML VIAL IV PRN (14:06)
[2020-09-29] MEDS ORDERED: ePHEDrine sulfate 50 MG/ML AMP IV PRN (14:06)
[2020-09-29] MEDS ORDERED: HYDROmorphone INJ 1 MG/ML SYRINGE IV PRN (14:06)
--- NOTE | 2020-09-29 16:31 | Post Operative Brief Note ---
Immediate Post Op Note v1 Date of Surgery September 29, 2020 Pre & Post Diagnosis Operation Date: 09/29/20 11:45 Pre-Op Diagnosis: Degenerative joint disease of left hip Post-Op Diagnosis: Degenerative joint disease of left hip I identified the patient and participated in the time-out.: Yes Procedure Operation Date: 09/29/20 11:45 Actual Procedures p Left Total Hip Arthroplasty(Left) - Dilip Palmer DO Surgeon Dilip Palmer DO Metal Bonding Helper none Estimated Blood Loss 180 Findings Consistent with Post-Op Diagnosis Fluids 200 cc LR Specimens femoral head Anesthesia Type Spinal MAC Complications none Disposition Disposition: Recovery Room Overlapping Procedure I was present for: the critical portions of procedure. I was immediately available: during the entire case. Back up surgeon: was not required during procedure.
--- NOTE | 2020-09-29 16:34 | Operative Report ---
Post Operative Report Pre & Post Diagnosis Operation Date: 09/29/20 11:45 Pre-Op Diagnosis: Degenerative joint disease of left hip Post-Op Diagnosis: Degenerative joint disease of left hip I identified the patient and participated in the time-out.: Yes Procedure Operation Date: 09/29/20 11:45 Actual Procedures p Left Total Hip Arthroplasty(Left) - Dilip Palmer DO Surgeon Dilip Palmer DO Ict Teacher none Estimated Blood Loss 180 Findings Consistent with Post-Op Diagnosis Fluids 200 cc LR Specimens femoral head Anesthesia Type Spinal MAC Complications none Disposition Disposition: Recovery Room Indications The patient is a 75-year-old female who presents with severe progressive left hip DJD AVN who has failed outpatient conservative treatments. I indicated the patient for a total hip replacement and the risks and benefits were explained in detail which included but not limited to infection, bleeding, blood clot, damage to surrounding bone, nerves, vessels, soft tissue, hip dislocation, failure of the prosthesis, leg length discrepancy, need for additional surgery and . The patient agreed to proceed with replacement of the hip and informed consent was obtained. Appropriate clearances were obtained. Description of Procedure COMPONENTS USED: Le Biomet hip system: Acetabulum size 50, femur size 9 standard offset, femoral head 36-3.5, liner 50x36, acetabular screw 30x1. Following induction of adequate spinal anesthesia, the patient was transferred to the OR table and placed in lateral decubitus position with right hip down. The left hip was prepped and draped in the typical sterile fashion. A timeout was performed, patient identified and site glenna confirmed. Appropriate antibiot ics were given. A standard posterolateral/Ravi-Langenbeck incision was made. Subcutaneous tissue was sharply dissected. Electrocautery was utilized for hemostasis. The fascia was incised throughout the length of the wound and retracted with the Charnley retractor. The bursa was taken down and the short external rotators were identified. The piriformis was tagged with #1 Vicryl. The short external rotators and capsule were divided from the posterior aspect of the femur using electrocautery. The posterior capsule was tagged with #1 Vicryl. Both external rotators and posterior capsule were swept posterior and protected, along with protecting the sciatic nerve. The hip was dislocated by flexion and internally rotation in a controlled manner and exposure of the femoral neck was gained with an old-style Hohmann and a blunt cobra retractor. A femoral cutting guide was utilized for making the appropriate level femoral neck cut with reciprocating saw. The femoral head was removed, measured and reserved on the back table. Next, attention was turned to the acetabulum. A posterior and anterior offset retractor was placed to gain adequate exposure. Acetabular labrum as well as posterior capsule elements were removed using electrocautery and forceps. Fovea centralis was cleared of all soft tissue. Sequential reaming was performed starting at 42 mm and carried up to a 49 mm and decision was made to proceed with impaction of a 50 mm G7 Osteo-Ti cup. This was impacted and held using a single 30 mm acetabular screw. The trial acetabular liner was placed at this time. Next, attention was turned to the proximal femur where a Bovie and pickup was used to further clear short external rotators from their insertion on the femur. Box osteotome and canal finder was used to gain access to the femoral canal and the lateral reamer on power was used to further open the proximal lateral canal. Sequentially rasping was carried up to a 9 which gave good fit and fill of the proximal femur. A trial reduction was carried out with a standard offset femoral neck component a 36-3.5 mm femoral head. The trial reduction was stable in all degrees of rotation with no [id number] impingement. The hip was dislocated, trial components were removed and access to the acetabulum was re-established. The trial liner was removed and the cup was irrigated to ensure all debris was r emoved. The final acetabular liner was inserted and properly seated in the cup. Access to the femur was once more gained and the size 9 femoral stem with standard offset was impacted into position. The hip was once more assessed with the 36-3.5 mm femoral head. Stability was accessed and found to be excellent with equal leg lengths. The hip was dislocated for the last time and the final 36-3.5 ceramic femoral head was impacted in place and the hip was reduced. Range of motion was checked once again and found to be stable. A Betadine soak was performed. After 3 minutes, the hip was once more irrigated with copious sterile saline solution with bacitracin. The riana-incisional soft tissue was injected utilizing [place] ortho mix which includes a combination of Ropivicaine 0.5% 150mg, Bupivicaine 0.5%/Epinephrine 1:200,000 30ml, Toradol 30mg, Dexamethasone 4mg, Ketamine 10mg, Clonidine 100mcg and NSS 30ml Orthomix solution. The piriformis, external rotators and capsule were repaired to the greater trochanter through bone tunnels using #5 FiberWire. The fascia was closed using #1 Vicryl, subcutaneous tissue was closed using 2-0 Vicryl, and skin was closed with catherine. A sterile dry dressing was applied which included Silverlon. The patient tolerated the procedure well and was transported to PACU in stable condition. I attest to the content of the Intraoperative Record and any orders documented therein. Any exceptions are noted below.
--- NOTE | 2020-09-29 17:11 | XRay Report ---
XR hip 1V LT w pelvis HISTORY: 75 years-old Female IN PACU - A/P PELVIS and LATERAL HIP left hip total joint arthroplasty COMPARISON: Pelvis and left hip radiographs 09/28/2020 TECHNIQUE: AP view of the pelvis with crosstable view of the left hip FINDINGS: [Total joint arthroplasty demonstrates satisfactory line. No acute fracture or unexpected opaque fore ign body. Lateral skin catherine are noted along with expected postsurgical soft tissue swelling and de ep tissue air. Surgical clips of the left inguinal tissues are noted along with pelvic herniorrhaphy changes. 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 Part ially imaged lumbar spinal fusion hardware. IMPRESSION: Left hip total joint arthroplasty with expected postoperative changes. ACT 112: Negative or not required by law. The above report was generated using voice recognition software. It may contain grammatical, syntax o r spelling errors. Electronically signed by: Luiz Wiseman M.D. 09/29/2020 5:09 PM
[2020-09-29] MEDS ORDERED: HYDROmorphone INJ 0.5 MG/0.5 ML SYR IV PRN (18:05)
[2020-09-29] MEDS ORDERED: diphenhydrAMINE Capsule 25 MG CAP PO PRN (18:05)
[2020-09-29] MEDS ORDERED: METOCLOPRAMIDE HCL INJ 5 MG/ML 2 ML VIAL IV PRN (18:05)
[2020-09-29] MEDS ORDERED: bisacodyL 10 MG SUPP PR PRN (18:05)
[2020-09-29] MEDS ORDERED: NALOXONE HCL 0.4 MG/1 ML VIAL/CARP IV PRN (18:05)
[2020-09-29] MEDS ORDERED: MAGNESIUM HYDROXIDE SUSP 30 ML UDC PO PRN (18:05)
[2020-09-29] MEDS: SODIUM CHLORIDE 0.9% 1000ML 1,000 ML IV SCH (18:28)
[2020-09-29] MEDS: ceFAZolin 2000MG 2,000 MG/15 ML SYR IV SCH (19:50)
--- NOTE | 2020-09-29 20:21 | Anesthesiology Progress Note ---
Date of Service September 29, 2020 Anesthesia Post Procedure Vital Signs Vital Signs: Temp Pulse Pulse Pulse Resp BP Pulse Ox 09/29/20 20:00 36.9 C 79 18 90/56 L 96 09/29/20 19:21 36.8 C 75 20 105/69 91 09/29/20 18:30 36.3 C L 66 16 100/60 96 09/29/20 18:00 71 09/29/20 17:30 66 20 108/62 97 09/29/20 17:20 36.2 C L 64 15 102/74 100 09/29/20 17:10 63 15 112/72 100 09/29/20 17:00 66 16 110/72 100 09/29/20 16:50 71 22 110/72 92 09/29/20 16:40 74 22 118/65 99 09/29/20 16:31 36.4 C L 72 15 96/56 L 99 09/29/20 13:00 36.6 C 73 20 122/77 97 09/29/20 11:43 36.6 C 72 20 114/77 98 09/29/20 08:14 36.5 C 66 20 113/65 92 09/29/20 07:34 65 09/29/20 03:41 69 09/29/20 03:31 36.7 C 73 18 92/62 L 94 09/28/20 22:18 36.9 C 85 18 122/64 94 Pain Intensity Left Hip: Pain Intensity: 8 Transfer of Care Handoff Completed per policy Notes Mental Status: alert / awake / arousable and participated in evaluation Nausea / Vomiting: adequately controlled Pain: adequately controlled Airway Patency, RR, SpO2: stable & adequate BP & HR: stable & adequate Hydration State: stable & adequate Neuraxial Anesthesia: was administered and sensory block is resolving Anesthetic Complications: no major complications apparent and Pt Satisfied with anesthetic care
[2020-09-29] MEDS: GABAPENTIN 300 MG CAP PO SCH (20:46)
[2020-09-29] MEDS: DOCUSATE SODIUM 100 MG CAP PO SCH (20:46)
[2020-09-29] MEDS: SENNA 8.6 MG TAB PO SCH (20:46)
[2020-09-29] MEDS: ACETAMINOPHEN 500 MG TAB PO SCH (21:01)
--- NOTE | 2020-09-29 21:41 | Hospitalist Progress Note ---
Date of Service September 29, 2020 Assessment & Plan (1) Degenerative joint disease of left hip: Left ANTOINETTE performed by Dr. Palmer. POD # 0. (2) Coronary artery disease: History of CAD, s/p PCI with stent. No anginal symptoms. Continue aspirin, metoprolol, statin. (3) Chronic diastolic heart failure: Compensated. Resume spironolactone. (4) Atrial fibrillation: Rate controlled on digoxin and metoprolol. Anticoagulation with apixaban held for surgery- resume when OK from surgical perspective. (5) Hypertension: Continue metoprolol. (6) Asthma: Pulmonary status stable. Incentive spirometry postop. (7) Prediabetes: Hgb A1c = 6.2. FBS today = 86. Insulin coverage PRN. (8) DVT prophylaxis: History of chronic AF & DVT. Apixaban held for surgery. Received SQ heparin preoperatively. SCD's ordered. Resume apixaban postop when OK from surgical perspective. (9) Discharge planning issues: Discharge disposition to be determined. Family Medicine follow-up with Dr. Walters. Ortho follow-up with Dr. Palmer. Admission and Anticipated Discharge Date Admission Date: September 26, 2020 Subjective Recheck for hip pain and other problems. Patient seen in their room around 1800. Underwent left total hip arthroplasty today. Doing well postoperatively. No chest pain, cough, SOB, nausea, vomiting. Pain well-controlled. Telemetry data reviewed: AF rate-controlled, PVC's. Review of Systems: Constitutional- no fever. Cardiac- no chest pain. Pulmonary- no cough or SOB. GI- no nausea, vomiting, diarrhea, melena, hematochezia. - no urinary symptoms. Otherwise, as noted above. Physical Exam Constitutional: no acute distress Eyes: + anicteric sclerae Respiratory: normal respiratory effort, lungs clear to auscultation Cardiovascular: Rate/Rhythm: + irregularly irregular Vessels: no JVD Extremities: no calf tenderness and no edema Gastrointestinal (Abdomen): normal bowel sounds, soft, nontender, no hepatosplenomegaly Musculoskeletal: Extremities: no cyanosis Skin: no rashes, warm and dry Psychiatric: Orientation: alert and oriented x 3 Results & Data Results & Data ([facility]) Vital Signs (Past 12 Hours) Vital Signs Temp Pulse Pulse Pulse Resp BP Pulse Ox 09/29/20 20:56 37.1 C 71 16 98/64 L 96 09/29/20 20:00 36.9 C 79 18 90/56 L 96 09/29/20 19:21 36.8 C 75 20 105/69 91 09/29/20 18:30 36.3 C L 66 16 100/60 96 09/29/20 18:00 71 09/29/20 17:30 66 20 108/62 97 09/29/20 17:20 36.2 C L 64 15 102/74 100 09/29/20 17:10 63 15 112/72 100 09/29/20 17:00 66 16 110/72 100 09/29/20 16:50 71 22 110/72 92 09/29/20 16:40 74 22 118/65 99 09/29/20 16:31 36.4 C L 72 15 96/56 L 99 09/29/20 13:00 36.6 C 73 20 122/77 97 09/29/20 11:43 36.6 C 72 20 114/77 98 Laboratory Results Laboratory Results - last 24 hr 09/29/20 09/29/20 09/29/20 05:48 05:48 06:35 WBC 7.43 RBC 3.99 L Hgb 11.9 L Hct 36.1 L MCV 90.5 MCH 29.8 MCHC 33.0 RDW Std Deviation 44.7 RDW Coeff of Stephan 13.5 Plt Count 244 MPV 11.1 H Sodium 142 Potassium 4.2 Chloride 110 H Carbon Dioxide 25 Anion Gap 7.0 BUN 19 H Creatinine 0.84 Est Cr Clr Drug Dosing 58.0 Est GFR ( Amer) 79.4 Est GFR (Non-Af Amer) 68.5 BUN/Creatinine Ratio 22.3 H Glucose 82 POC Glucose 86 Calcium 8.5 09/29/20 09/29/20 09/29/20 11:12 13:11 16:37 WBC RBC Hgb Hct MCV MCH MCHC RDW Std Deviation RDW Coeff of Stephan Plt Count MPV Sodium Potassium Chloride Carbon Dioxide Anion Gap BUN Creatinine Est Cr Clr Drug Dosing Est GFR ( Amer) Est GFR (Non-Af Amer) BUN/Creatinine Ratio Glucose POC Glucose 86 75 104 H Calcium 09/29/20 09/29/20 17:52 19:57 WBC RBC Hgb Hct MCV MCH MCHC RDW Std Deviation RDW Coeff of Stephan Plt Count MPV Sodium Potassium Chloride Carbon Dioxide Anion Gap BUN Creatinine Est Cr Clr Drug Dosing Est GFR ( Amer) Est GFR (Non-Af Amer) BUN/Creatinine Ratio Glucose POC Glucose 79 168 H Calcium
[2020-09-30] MEDS: oxyCODONE HCL IR 5 MG TAB (IMMEDIATE RELEASE) PO PRN ×2 (02:48→16:29)
[2020-09-30] MEDS: SODIUM CHLORIDE 0.9% 1000ML 1,000 ML IV SCH ×2 (04:46→14:57)
[2020-09-30] MEDS: ACETAMINOPHEN 500 MG TAB PO SCH ×3 (05:09→21:36)
[2020-09-30] MEDS: ceFAZolin 2000MG 2,000 MG/15 ML SYR IV SCH (05:10)
[2020-09-30 06:23] LABS: Basophils # (auto) 0.02 K/uL (0-0.2); Basophils % (auto) 0.2 %; Eosinophils # (auto) 0.06 K/uL (0-0.5); Eosinophils % (auto) 0.5 %; Hematocrit (blood only) 33.4 % (37-47); Immature Granulocytes # (auto) 0.02 K/uL (0.00-0.02); Immature Granulocytes % (auto) 0.2 %; Lymphocytes # (auto) 0.96 K/uL (1.2-3.4); Lymphocytes % (auto) 8.1 %; Mean Corpuscular Hemoglobin 29.5 pg (25-34); Mean Corpuscular Hgb Conc 32.9 g/dL (32-36); Mean Corpuscular Volume 89.5 fL (80-100); Mean Platelet Volume 10.7 fL (7.4-10.4); Monocytes # (auto) 1.24 K/uL (0.11-0.59); Monocytes % (auto) 10.5 %; Neutrophils # (auto) 9.49 K/uL (1.4-6.5); Neutrophils % (auto) 80.5 %; Platelet Count 216 K/uL (130-400); RDW Coefficient of Variation 13.4 % (11.5-14.5); RDW Standard Deviation 43.7 fL (36.4-46.3); Red Blood Count 3.73 M/uL (4.2-5.4); White Blood Count 11.79 K/uL (4.8-10.8)
[2020-09-30 07:03] LABS: BUN Creatinine Ratio 25.3 (10-20); Calcium 7.9 mg/dl (8.5-10.1); Creatinine Clr Calc Pharmacy 49.3 ml/min; Est GFR (African American) 63.5; Est GFR (Non-African American) 54.8; Potassium 4.3 mmol/L (3.5-5.1)
[2020-09-30] MEDS: SPIRONOLACTONE 25 MG TAB PO SCH (08:27)
[2020-09-30] MEDS: ASPIRIN 81 MG ECTAB PO SCH ×2 (08:28→20:28)
[2020-09-30] MEDS: POTASSIUM CHLORIDE 10 MEQ TABCR PO SCH (08:29)
[2020-09-30] MEDS: DOCUSATE SODIUM 100 MG CAP PO SCH ×2 (08:29→20:28)
[2020-09-30] MEDS: LEVOTHYROXINE SODIUM 25 MCG TABLET PO SCH (08:29)
[2020-09-30] MEDS: SERTRALINE HCL 50 MG TABLET PO SCH (08:29)
[2020-09-30] MEDS: ATORVASTATIN 40 MG TAB PO SCH (08:29)
[2020-09-30] MEDS: MULTIVITAMIN TAB PO SCH (08:30)
[2020-09-30] MEDS: HEPARIN SOD 5,000 UNIT/0.5 ML VIAL SQ SCH ×2 (08:31→20:30)
[2020-09-30] MEDS: INSULIN ASPART 100 UNITS/ML 3 ML PEN SC SCH ×4 (08:36→21:04)
[2020-09-30] MEDS: METOPROLOL SUCC 50MG EXT REL TAB PO SCH ×2 (09:52→20:28)
[2020-09-30] MEDS: LIDOCAINE 5% 1 PATCH TD SCH (09:52)
--- NOTE | 2020-09-30 11:48 | Orthopedic Progress Note ---
Date of Service September 30, 2020 Assessment & Plan (1) Degenerative joint disease of left hip: s/p L ANTOINETTE Postoperative day #1 -ancef x 24 -DVT ppx: SCDs, TEDS, 81mg ASA BID -PT/OT -WBAT LLE -Posterior hip precautions -am labs, as above, hgb 11.0 -DC planning Admission and Anticipated Discharge Date Admission Date: September 26, 2020 Subjective Post Operative Progress Note Patient seen sitting up in bed, patient was also seen in PACU on POD 0, patient continues to look good and is medically stable, comfortable, denies complaints, pain well controlled, no acute issues. Denies F/C/N/V/SOB/CP. Review of Systems Review of Systems: All systems reviewed & are unremarkable except as noted in HPI & below Constitutional: as per Subjective / HPI Physical Exam Physical Exam: LLE NVSI +EHL/FHL/TA/GS SILT grossly, +2 DP pulse, compartments soft NT, dressing cdi. Constitutional: WD/WN, vitals as above Results & Data ([facility]) Vital Signs (Past 12 Hours) Vital Signs Temp Pulse Pulse Resp BP Pulse Ox 09/30/20 11:12 36.5 C 82 20 89/58 L 98 09/30/20 07:51 36.7 C 78 20 93/60 L 98 09/30/20 03:36 36.7 C 90 18 99/65 L 94 Laboratory Results 09/30/20 09/30/20 09/30/20 Range/Units 11:19 07:35 05:57 WBC (4.8-10.8) K/uL RBC (4.2-5.4) M/uL Hgb (12.0-16.0) g/dL Hct (37-47) % MCV (80-100) fL MCH (25-34) pg MCHC (32-36) g/dL RDW Std Deviation (36.4-46.3) fL RDW Coeff of Stephan (11.5-14.5) % Plt Count (130-400) K/uL MPV (7.4-10.4) fL Immature Gran % (Auto) % Neut % (Auto) % Lymph % (Auto) % [place] % (Auto) % Eos % (Auto) % Baso % (Auto) % Neut # (Auto) (1.4-6.5) K/uL Lymph # (Auto) (1.2-3.4) K/uL [place] # (Auto) (0.11-0.59) K/uL Eos # (Auto) (0-0.5) K/uL Baso # (Auto) (0-0.2) K/uL Immature Gran # (Auto) (0.00-0.02) K/uL Sodium 139 (136-145) mmol/L Potassium 4.3 (3.5-5.1) mmol/L Chloride 110 H (98-107) mmol/L Carbon Dioxide 24 (21-32) mmol/L Anion Gap 5.0 (3-11) BUN 26 H (7-18) mg/dl Creatinine 1.01 (0.6-1.2) mg/dl Est Cr Clr Drug Dosing 49.3 ml/min Est GFR ( Amer) 63.5 Est GFR (Non-Af Amer) 54.8 BUN/Creatinine Ratio 25.3 H (10-20) Glucose 116 H (70-99) mg/dl POC Glucose 125 H 166 H (70-99) mg/dl Calcium 7.9 L (8.5-10.1) mg/dl 09/30/20 09/29/20 09/29/20 Range/Units 05:57 19:57 17:52 WBC 11.79 H (4.8-10.8) K/uL RBC 3.73 L (4.2-5.4) M/uL Hgb 11.0 L (12.0-16.0) g/dL Hct 33.4 L (37-47) % MCV 89.5 (80-100) fL MCH 29.5 (25-34) pg MCHC 32.9 (32-36) g/dL RDW Std Deviation 43.7 (36.4-46.3) fL RDW Coeff of Stephan 13.4 (11.5-14.5) % Plt Count 216 (130-400) K/uL MPV 10.7 H (7.4-10.4) fL Immature Gran % (Auto) 0.2 % Neut % (Auto) 80.5 % Lymph % (Auto) 8.1 % [place] % (Auto) 10.5 % Eos % (Auto) 0.5 % Baso % (Auto) 0.2 % Neut # (Auto) 9.49 H (1.4-6.5) K/uL Lymph # (Auto) 0.96 L (1.2-3.4) K/uL [place] # (Auto) 1.24 H (0.11-0.59) K/uL Eos # (Auto) 0.06 (0-0.5) K/uL Baso # (Auto) 0.02 (0-0.2) K/uL Immature Gran # (Auto) 0.02 (0.00-0.02) K/uL Sodium (136-145) mmol/L Potassium (3.5-5.1) mmol/L Chloride (98-107) mmol/L Carbon Dioxide (21-32) mmol/L Anion Gap (3-11) BUN (7-18) mg/dl Creatinine (0.6-1.2) mg/dl Est Cr Clr Drug Dosing ml/min Est GFR ( Amer) Est GFR (Non-Af Amer) BUN/Creatinine Ratio (10-20) Glucose (70-99) mg/dl POC Glucose 168 H 79 (70-99) mg/dl Calcium (8.5-10.1) mg/dl 09/29/20 09/29/20 Range/Units 16:37 13:11 WBC (4.8-10.8) K/uL RBC (4.2-5.4) M/uL Hgb (12.0-16.0) g/dL Hct (37-47) % MCV (80-100) fL MCH (25-34) pg MCHC (32-36) g/dL RDW Std Deviation (36.4-46.3) fL RDW Coeff of Stephan (11.5-14.5) % Plt Count (130-400) K/uL MPV (7.4-10.4) fL Immature Gran % (Auto) % Neut % (Auto) % Lymph % (Auto) % [place] % (Auto) % Eos % (Auto) % Baso % (Auto) % Neut # (Auto) (1.4-6.5) K/uL Lymph # (Auto) (1.2-3.4) K/uL [place] # (Auto) (0.11-0.59) K/uL Eos # (Auto) (0-0.5) K/uL Baso # (Auto) (0-0.2) K/uL Immature Gran # (Auto) (0.00-0.02) K/uL Sodium (136-145) mmol/L Potassium (3.5-5.1) mmol/L Chloride (98-107) mmol/L Carbon Dioxide (21-32) mmol/L Anion Gap (3-11) BUN (7-18) mg/dl Creatinine (0.6-1.2) mg/dl Est Cr Clr Drug Dosing ml/min Est GFR ( Amer) Est GFR (Non-Af Amer) BUN/Creatinine Ratio (10-20) Glucose (70-99) mg/dl POC Glucose 104 H 75 (70-99) mg/dl Calcium (8.5-10.1) mg/dl
[2020-09-30] MEDS: DIGOXIN 0.125 MG TAB PO SCH (16:30)
[2020-09-30] MEDS: SENNA 8.6 MG TAB PO SCH (20:29)
[2020-09-30] MEDS: GABAPENTIN 300 MG CAP PO SCH (20:30)
--- NOTE | 2020-09-30 21:37 | Hospitalist Progress Note ---
Date of Service September 30, 2020 Assessment & Plan (1) Degenerative joint disease of left hip: Left ANTOINETTE performed by Dr. Palmer. POD # 1. (2) Coronary artery disease: History of CAD, s/p PCI with stent. No anginal symptoms. Continue aspirin, metoprolol, statin. (3) Chronic diastolic heart failure: Compensated. Resumed spironolactone. Stop IVF. (4) Atrial fibrillation: Rate controlled on digoxin and metoprolol. Anticoagulation with apixaban held for surgery- resume when OK from surgical perspective. (5) Hypertension: BP running a bit low. Continue metoprolol with hold parameters. (6) Asthma: Pulmonary status stable. Incentive spirometry postop. (7) Prediabetes: Hgb A1c = 6.2. FBS today = 166. Insulin coverage PRN. (8) DVT prophylaxis: History of chronic AF & DVT. Apixaban held for surgery. Received SQ heparin preoperatively. SCD's ordered. Resume apixaban postop when OK from surgical perspective. (9) Discharge planning issues: Discharge disposition to be determined. Family Medicine follow-up with Dr. Walters. Ortho follow-up with Dr. Palmer. Admission and Anticipated Discharge Date Admission Date: September 26, 2020 Subjective Recheck for hip pain and other problems. Patient seen in their room around 1800. Underwent left total hip arthroplasty yesterday. Having some postop pain. Otherwise, doing well. Telemetry data reviewed: AF usually rate-controlled, sometimes fast, 3 beat run PVC's Review of Systems: Constitutional- no fever. Cardiac- no chest pain. Pulmonary- no cough or SOB. GI- no nausea, vomiting, diarrhea, melena, hematochezia. - no dysuria. Otherwise, as noted above. Physical Exam Constitutional: no acute distress Eyes: + anicteric sclerae Respiratory: normal respiratory effort, lungs clear to auscultation Cardiovascular: Rate/Rhythm: + irregularly irregular Vessels: no JVD Extremities: no calf tenderness and no edema Gastrointestinal (Abdomen): normal bowel sounds, soft, nontender, no hepatosplenomegaly Musculoskeletal: Extremities: no cyanosis Skin: no rashes, warm and dry Psychiatric: Orientation: alert and oriented x 3 Results & Data Results & Data ([facility]) Vital Signs (Past 12 Hours) Vital Signs Temp Pulse Pulse Pulse Resp BP Pulse Ox 09/30/20 19:08 36.9 C 90 19 90/53 L 97 09/30/20 18:17 89 09/30/20 16:30 83 09/30/20 14:43 36.4 C L 82 20 91/58 L 95 09/30/20 11:12 36.5 C 82 20 89/58 L 98 Laboratory Results 09/30/20 05:57 09/30/20 05:57
[2020-10-01] MEDS: ACETAMINOPHEN 500 MG TAB PO SCH ×3 (05:52→21:33)
--- NOTE | 2020-10-01 06:25 | Orthopedic Progress Note ---
Date of Service October 01, 2020 Assessment & Plan (1) Degenerative joint disease of left hip: POD #2 s/p L ANTOINETTE -ancef x 24 -DVT ppx: SCDs, TEDS, 81mg ASA BID -PT/OT -WBAT LLE -Posterior hip precautions -DC planning Admission and Anticipated Discharge Date Admission Date: September 26, 2020 Supervising Physician Co-Signing Physician Notes Patient seen and examined, agree with above assessment plan, patient comfortable, no acute issues, pain well controlled. LLE NVSI +EHL/FHL/TA/GS SILT grossly, +2 DP pulse, compartments soft NT, dres sing cdi. s/p L ANTOINETTE POD #2 -ancef x 24 -DVT ppx: SCDs, TEDS, 81mg ASA BID -PT/OT -WBAT LLE -Posterior hip precautions -am labs, as above - hgb 10.0 -DC planning Subjective POD #2 s/p Left ANTOINETTE denies CP/SOB denies Fever/chills pain currently 11/30 Review of Systems Review of Systems: All systems reviewed & are unremarkable except as noted in HPI & below Constitutional: as per Subjective / HPI Physical Exam Physical Exam: Vital Signs Temp 36.9 C 10/01/20 03:25 Pulse 84 10/01/20 03:25 Resp 18 10/01/20 03:25 BP 120/80 10/01/20 03:25 Pulse Ox 97 10/01/20 03:25 Intake & Output 09/30/20 09/30/20 10/01/20 06:59 18:59 06:59 Intake Total 1375 / 1375 2200 / 3040 840 / 3040 Output Total / 755 300 / 1500 1200 / 1500 Balance 1370 / 620 1900 / 1540 -360 / 1540 Weight 88.2 kg 88.8 kg Intake: IV 1000 / 1000 1000 / 1840 840 / 1840 Nss 1000ML 1,0 00 ml @ 100 mls/ 1000 / 1000 1000 / 1840 840 / 1840 hr IV .Q10H SC H Rx#:[id number] Oral 375 / 375 1200 / 1200 Output: Urine 600 / 600 Urine Amount (Ca theter) 5 / 755 300 / 900 600 / 900 External 5 / 755 300 / 900 600 / 900 Other: # Unmeasured Voi ds 1 1 Weight Measureme nt Method Built in Bedscale Built in Bedscale Constitutional: WD/WN, vitals as above no acute distress Musculoskeletal: left lower extremity: NVDI, +2 DP pulse, compartments soft NT, silverlon dressing clean and dry; Results & Data ([facility]) Vital Signs (Past 12 Hours) Vital Signs Temp Pulse Pulse Pulse Resp BP Pulse Ox 10/01/20 03:25 36.9 C 84 18 120/80 97 09/30/20 23:28 36.9 C 64 16 106/56 L 94 09/30/20 23:19 81 09/30/20 19:08 36.9 C 90 19 90/53 L 97 Laboratory Results 10/01/20 10/01/20 10/01/20 Range/Units 07:40 06:47 06:47 WBC 9.98 (4.8-10.8) K/uL RBC 3.35 L (4.2-5.4) M/uL Hgb 10.0 L (12.0-16.0) g/dL Hct 30.1 L (37-47) % MCV 89.9 (80-100) fL MCH 29.9 (25-34) pg MCHC 33.2 (32-36) g/dL RDW Std Deviation 45.2 (36.4-46.3) fL RDW Coeff of Stephan 13.7 (11.5-14.5) % Plt Count 210 (130-400) K/uL MPV 11.1 H (7.4-10.4) fL Immature Gran % (Auto) 0.2 % Neut % (Auto) 78.3 % Lymph % (Auto) 9.8 % [place] % (Auto) 10.4 % Eos % (Auto) 1.1 % Baso % (Auto) 0.2 % Neut # (Auto) 7.81 H (1.4-6.5) K/uL Lymph # (Auto) 0.98 L (1.2-3.4) K/uL [place] # (Auto) 1.04 H (0.11-0.59) K/uL Eos # (Auto) 0.11 (0-0.5) K/uL Baso # (Auto) 0.02 (0-0.2) K/uL Immature Gran # (Auto) 0.02 (0.00-0.02) K/uL Sodium 141 (136-145) mmol/L Potassium 4.1 (3.5-5.1) mmol/L Chloride 114 H (98-107) mmol/L Carbon Dioxide 25 (21-32) mmol/L Anion Gap 3.0 (3-11) BUN 22 H (7-18) mg/dl Creatinine 0.83 (0.6-1.2) mg/dl Est Cr Clr Drug Dosing 60.3 ml/min Est GFR ( Amer) 80.5 Est GFR (Non-Af Amer) 69.5 BUN/Creatinine Ratio 26.4 H (10-20) Glucose 112 H (70-99) mg/dl POC Glucose 112 H (70-99) mg/dl Calcium 8.3 L (8.5-10.1) mg/dl 09/30/20 09/30/20 09/30/20 Range/Units 20:40 16:37 11:19 WBC (4.8-10.8) K/uL RBC (4.2-5.4) M/uL Hgb (12.0-16.0) g/dL Hct (37-47) % MCV (80-100) fL MCH (25-34) pg MCHC (32-36) g/dL RDW Std Deviation (36.4-46.3) fL RDW Coeff of Stephan (11.5-14.5) % Plt Count (130-400) K/uL MPV (7.4-10.4) fL Immature Gran % (Auto) % Neut % (Auto) % Lymph % (Auto) % [place] % (Auto) % Eos % (Auto) % Baso % (Auto) % Neut # (Auto) (1.4-6.5) K/uL Lymph # (Auto) (1.2-3.4) K/uL [place] # (Auto) (0.11-0.59) K/uL Eos # (Auto) (0-0.5) K/uL Baso # (Auto) (0-0.2) K/uL Immature Gran # (Auto) (0.00-0.02) K/uL Sodium (136-145) mmol/L Potassium (3.5-5.1) mmol/L Chloride (98-107) mmol/L Carbon Dioxide (21-32) mmol/L Anion Gap (3-11) BUN (7-18) mg/dl Creatinine (0.6-1.2) mg/dl Est Cr Clr Drug Dosing ml/min Est GFR ( Amer) Est GFR (Non-Af Amer) BUN/Creatinine Ratio (10-20) Glucose (70-99) mg/dl POC Glucose 135 H 141 H 125 H (70-99) mg/dl Calcium (8.5-10.1) mg/dl
[2020-10-01 07:40] LABS: Basophils # (auto) 0.02 K/uL (0-0.2); Basophils % (auto) 0.2 %; Eosinophils # (auto) 0.11 K/uL (0-0.5); Eosinophils % (auto) 1.1 %; Hematocrit (blood only) 30.1 % (37-47); Immature Granulocytes # (auto) 0.02 K/uL (0.00-0.02); Immature Granulocytes % (auto) 0.2 %; Lymphocytes # (auto) 0.98 K/uL (1.2-3.4); Lymphocytes % (auto) 9.8 %; Mean Corpuscular Hemoglobin 29.9 pg (25-34); Mean Corpuscular Hgb Conc 33.2 g/dL (32-36); Mean Corpuscular Volume 89.9 fL (80-100); Mean Platelet Volume 11.1 fL (7.4-10.4); Monocytes # (auto) 1.04 K/uL (0.11-0.59); Monocytes % (auto) 10.4 %; Neutrophils # (auto) 7.81 K/uL (1.4-6.5); Neutrophils % (auto) 78.3 %; Platelet Count 210 K/uL (130-400); RDW Coefficient of Variation 13.7 % (11.5-14.5); RDW Standard Deviation 45.2 fL (36.4-46.3); Red Blood Count 3.35 M/uL (4.2-5.4); White Blood Count 9.98 K/uL (4.8-10.8)
[2020-10-01 08:08] LABS: BUN Creatinine Ratio 26.4 (10-20); Calcium 8.3 mg/dl (8.5-10.1); Creatinine Clr Calc Pharmacy 60.3 ml/min; Est GFR (African American) 80.5; Est GFR (Non-African American) 69.5; Potassium 4.1 mmol/L (3.5-5.1)
[2020-10-01] MEDS: METOPROLOL SUCC 50MG EXT REL TAB PO SCH ×2 (09:05→20:50)
[2020-10-01] MEDS: MULTIVITAMIN TAB PO SCH (09:05)
[2020-10-01] MEDS: POTASSIUM CHLORIDE 10 MEQ TABCR PO SCH (09:06)
[2020-10-01] MEDS: LEVOTHYROXINE SODIUM 25 MCG TABLET PO SCH (09:06)
[2020-10-01] MEDS: ATORVASTATIN 40 MG TAB PO SCH (09:06)
[2020-10-01] MEDS: SPIRONOLACTONE 25 MG TAB PO SCH (09:06)
[2020-10-01] MEDS: ASPIRIN 81 MG ECTAB PO SCH ×2 (09:07→20:47)
[2020-10-01] MEDS: SERTRALINE HCL 50 MG TABLET PO SCH (09:07)
[2020-10-01] MEDS: DOCUSATE SODIUM 100 MG CAP PO SCH ×2 (09:08→20:46)
[2020-10-01] MEDS: INSULIN ASPART 100 UNITS/ML 3 ML PEN SC SCH ×4 (09:09→21:39)
[2020-10-01] MEDS: LIDOCAINE 5% 1 PATCH TD SCH (09:09)
[2020-10-01] MEDS: HEPARIN SOD 5,000 UNIT/0.5 ML VIAL SQ SCH ×2 (09:10→20:47)
[2020-10-01] MEDS: oxyCODONE HCL IR 5 MG TAB (IMMEDIATE RELEASE) PO PRN (13:46)
[2020-10-01] MEDS: GABAPENTIN 300 MG CAP PO SCH (20:46)
[2020-10-01] MEDS: SENNA 8.6 MG TAB PO SCH (20:50)
--- NOTE | 2020-10-01 23:13 | Hospitalist Progress Note ---
Date of Service October 01, 2020 Assessment & Plan (1) Degenerative joint disease of left hip: Left ANTOINETTE performed by Dr. Palmer. POD # 2. (2) Coronary artery disease: History of CAD, s/p PCI with stent. No anginal symptoms. Continue aspirin, metoprolol, statin. (3) Chronic diastolic heart failure: Compensated. Resumed spironolactone. (4) Atrial fibrillation: Rate controlled on digoxin and metoprolol. Anticoagulation with apixaban held for surgery- resume when OK from surgical perspective. (5) Hypertension: BP running a bit low. Continue metoprolol with hold parameters. (6) Asthma: Pulmonary status stable. Incentive spirometry postop. (7) Prediabetes: Hgb A1c = 6.2. FBS today = 112. Insulin coverage PRN. (8) DVT prophylaxis: History of chronic AF & DVT. Apixaban held for surgery. Received SQ heparin preoperatively. SCD's and ASA ordered. Resume apixaban postop when OK from surgical perspective. (9) Discharge planning issues: Discharge disposition to be determined. Family Medicine follow-up with Dr. Walters. Ortho follow-up with Dr. Palmer. Admission and Anticipated Discharge Date Admission Date: September 26, 2020 Subjective Recheck for hip pain and other problems. Patient seen in their room around 1340. Doing well. Less postop pain. Review of Systems: Constitutional- no fever. Cardiac- no chest pain. Pulmonary- no cough or SOB. GI- no nausea, vomiting, diarrhea, melena, hematochezia. - no dysuria. Otherwise, as noted above. Physical Exam Constitutional: no acute distress Eyes: + anicteric sclerae Respiratory: normal respiratory effort, lungs clear to auscultation Cardiovascular: Rate/Rhythm: + irregularly irregular Vessels: no JVD Extremities: no calf tenderness and no edema Gastrointestinal (Abdomen): normal bowel sounds, soft, nontender, no hepatosplenomegaly Musculoskeletal: Extremities: + extremities abnormal to inspection (left hip bandaged) and no cyanosis Skin: no rashes, warm and dry Psychiatric: Orientation: alert and oriented x 3 Results & Data Results & Data ([place]) Vital Signs (Past 12 Hours) Vital Signs Temp Pulse Pulse Resp BP Pulse Ox 10/01/20 22:57 37 C 85 18 100/62 94 10/01/20 20:52 97/59 L 10/01/20 19:34 93/59 L 10/01/20 19:28 37 C 84 16 89/50 L 98 10/01/20 15:00 36.6 C 92 H 18 130/67 90 10/01/20 14:54 82 10/01/20 12:08 36.8 C 79 18 99/65 L 96 Laboratory Results 10/01/20 06:47 10/01/20 06:47
[2020-10-02 06:18] LABS: Basophils # (auto) 0.03 K/uL (0-0.2); Basophils % (auto) 0.3 %; Eosinophils # (auto) 0.33 K/uL (0-0.5); Eosinophils % (auto) 3.3 %; Hematocrit (blood only) 29.4 % (37-47); Hemoglobin 9.7 g/dL (12.0-16.0); Immature Granulocytes # (auto) 0.03 K/uL (0.00-0.02); Immature Granulocytes % (auto) 0.3 %; Lymphocytes # (auto) 1.91 K/uL (1.2-3.4); Lymphocytes % (auto) 19.4 %; Mean Corpuscular Hemoglobin 29.8 pg (25-34); Mean Corpuscular Volume 90.5 fL (80-100); Mean Platelet Volume 10.5 fL (7.4-10.4); Monocytes # (auto) 1.25 K/uL (0.11-0.59); Monocytes % (auto) 12.7 %; Neutrophils # (auto) 6.31 K/uL (1.4-6.5); Platelet Count 212 K/uL (130-400); RDW Coefficient of Variation 13.9 % (11.5-14.5); RDW Standard Deviation 46.4 fL (36.4-46.3); Red Blood Count 3.25 M/uL (4.2-5.4); White Blood Count 9.86 K/uL (4.8-10.8)
[2020-10-02] MEDS: ACETAMINOPHEN 500 MG TAB PO SCH ×3 (06:36→21:05)
--- NOTE | 2020-10-02 06:44 | Orthopedic Progress Note ---
Date of Service October 02, 2020 Assessment & Plan (1) Degenerative joint disease of left hip: POD #3 s/p L ANTOINETTE -DVT ppx: SCDs, TEDS, 81mg ASA BID -PT/OT -WBAT LLE -Posterior hip precautions -DC planning Admission and Anticipated Discharge Date Admission Date: September 26, 2020 Supervising Physician Co-Signing Physician Notes Patient seen and examined, agree with above assessment plan, patient comfortable, no acute issues, pain well controlled. States she is doing better with PT. LLE NVSI +EHL/FHL/TA/GS SILT grossly, +2 DP pulse, compartments soft NT, dressing cdi. s/p L ANTOINETTE POD #3 -ancef x 24 -DVT ppx: SCDs, TEDS, 81mg ASA BID -PT/OT -WBAT LLE -Posterior hip precautions -am labs, as above - hgb 9.7 -DC planning - rehab Orthopedics will sign off, please call with questions, DC instructions placed in child development consultant section. Patient will need follow up 10-14 days in office, . Subjective pod #3 S/P Left ANTOINETTE Review of Systems Constitutional: as per Subjective / HPI Respiratory: no cough and no dyspnea Cardiovascular: no chest pain Gastrointestinal: no nausea and no vomiting Physical Exam Physical Exam: Vital Signs Temp 36.9 C 10/02/20 04:19 Pulse 82 10/02/20 04:19 Resp 18 10/02/20 04:19 BP 96/55 L 10/02/20 04:19 Pulse Ox 96 10/02/20 04:19 Intake & Output 10/01/20 10/01/20 10/02/20 06:59 18:59 06:59 Intake Total 840 / 3040 975 / 1625 650 / 1625 Output Total 1200 / 1500 500 / 1950 1450 / 1950 Balance -360 / 1540 475 / -325 -800 / -325 Weight 88.8 kg 88.4 kg Intake: IV 840 / 1840 Nss 1000ML 1,0 00 ml @ 100 mls/ 840 / 1840 hr IV .Q10H SC H Rx#:[id number] Oral 975 / 1625 650 / 1625 Output: Urine 600 / 600 Urine Amount (Ca theter) 600 / 900 500 / 1950 1450 / 1950 External 600 / 900 500 / 1950 1450 / 1950 Other: # Unmeasured Voi ds 1 2 Weight Measureme nt Method Built in [facility] Built in [facility] Constitutional: WD/WN, vitals as above no acute distress Musculoskeletal: left lower extremity: NVDI, +2 DP pulse, compartments soft NT, silverlon dressing clean and dry; Results & Data ([facility]) Vital Signs (Past 12 Hours) Vital Signs Temp Pulse Pulse Resp BP Pulse Ox 10/02/20 04:19 36.9 C 82 18 96/55 L 96 10/02/20 00:41 87 10/01/20 22:57 37 C 85 18 100/62 94 10/01/20 20:52 97/59 L 10/01/20 19:34 93/59 L 10/01/20 19:28 37 C 84 16 89/50 L 98 Laboratory Results Laboratory Results WBC 9.86 K/uL (4.8-10.8) 10/02/20 05:56 RBC 3.25 M/uL (4.2-5.4) L 10/02/20 05:56 Hgb 9.7 g/dL (12.0-16.0) L 10/02/20 05:56 Hct 29.4 % (37-47) L 10/02/20 05:56 MCV 90.5 fL (80-100) 10/02/20 05:56 MCH 29.8 pg (25-34) 10/02/20 05:56 MCHC 33.0 g/dL (32-36) 10/02/20 05:56 RDW Std Deviation 46.4 fL (36.4-46.3) H 10/02/20 05:56 RDW Coeff of Stephan 13.9 % (11.5-14.5) 10/02/20 05:56 Plt Count 212 K/uL (130-400) 10/02/20 05:56 MPV 10.5 fL (7.4-10.4) H 10/02/20 05:56 Immature Gran % (Auto) 0.3 % 10/02/20 05:56 Neut % (Auto) 64.0 % 10/02/20 05:56 Lymph % (Auto) 19.4 % 10/02/20 05:56 [place] % (Auto) 12.7 % 10/02/20 05:56 Eos % (Auto) 3.3 % 10/02/20 05:56 Baso % (Auto) 0.3 % 10/02/20 05:56 Neut # (Auto) 6.31 K/uL (1.4-6.5) 10/02/20 05:56 Lymph # (Auto) 1.91 K/uL (1.2-3.4) 10/02/20 05:56 [place] # (Auto) 1.25 K/uL (0.11-0.59) H 10/02/20 05:56 Eos # (Auto) 0.33 K/uL (0-0.5) 10/02/20 05:56 Baso # (Auto) 0.03 K/uL (0-0.2) 10/02/20 05:56 Immature Gran # (Auto) 0.03 K/uL (0.00-0.02) H 10/02/20 05:56 ESR 28 mm/hr (0-21) H 09/25/20 22:38 Sodium 141 mmol/L (136-145) 10/01/20 06:47 Potassium 4.1 mmol/L (3.5-5.1) 10/01/20 06:47 Chloride 114 mmol/L (98-107) H 10/01/20 06:47 Carbon Dioxide 25 mmol/L (21-32) 10/01/20 06:47 Anion Gap 3.0 (3-11) 10/01/20 06:47 BUN 22 mg/dl (7-18) H 10/01/20 06:47 Creatinine 0.83 mg/dl (0.6-1.2) 10/01/20 06:47 Est Cr Clr Drug Dosing 60.3 ml/min 10/01/20 06:47 Est GFR ( Amer) 80.5 10/01/20 06:47 Est GFR (Non-Af Amer) 69.5 10/01/20 06:47 BUN/Creatinine Ratio 26.4 (10-20) H 10/01/20 06:47 Glucose 112 mg/dl (70-99) H 10/01/20 06:47 POC Glucose 161 mg/dl (70-99) H 10/01/20 20:07 Estimat Average Glucose 131 mg/dl 09/25/20 22:35 Hemoglobin A1c 6.2 % (4.5-5.6) H 09/25/20 22:35 Calcium 8.3 mg/dl (8.5-10.1) L 10/01/20 06:47 Magnesium 2.1 mg/dl (1.8-2.4) 09/27/20 05:25 Total Bilirubin 0.4 mg/dl (0.2-1) 09/25/20 22:35 AST 13 U/L (15-37) L 09/25/20 22:35 ALT 14 U/L (12-78) 09/25/20 22:35 Alkaline Phosphatase 90 U/L (45-117) 09/25/20 22:35 C-Reactive Protein 0.71 mg/dl (0-0.29) H 09/25/20 22:35 Total Protein 7.4 gm/dl (6.4-8.2) 09/25/20 22:35 Albumin 3.5 gm/dl (3.4-5.0) 09/25/20 22:35 Globulin 3.9 gm/dl (2.5-4.0) 09/25/20 22:35 Albumin/Globulin Ratio 0.9 (0.9-2) 09/25/20 22:35 Lipase 121 U/L (73-393) 09/25/20 22:35 Procalcitonin < 0.05 ng/ml (0-0.5) 09/25/20 22:38 Digoxin 0.2 ng/ml (0.8-2.0) L 09/25/20 22:38 [facility] 09/28/[facility] 17:35 SARS-CoV-2, RNA, NAAT NEGATIVE (NEGATIVE) 09/28/20 17:35 SARS-CoV-2 Ag (Rapid) Negative (Negative) 09/26/20 00:47 Blood Type A Positive 09/26/20 06:03 Antibody Screen NEGATIVE 09/26/20 06:03
[2020-10-02 06:50] LABS: BUN Creatinine Ratio 21.5 (10-20); Calcium 8.2 mg/dl (8.5-10.1); Creatinine Clr Calc Pharmacy 73.4 ml/min; Est GFR (African American) 99.9; Est GFR (Non-African American) 86.2; Potassium 4.1 mmol/L (3.5-5.1)
[2020-10-02] MEDS: oxyCODONE HCL IR 5 MG TAB (IMMEDIATE RELEASE) PO PRN (08:07)
[2020-10-02] MEDS: METOPROLOL SUCC 50MG EXT REL TAB PO SCH ×3 (08:08→20:24)
[2020-10-02] MEDS: ASPIRIN 81 MG ECTAB PO SCH ×2 (08:08→20:20)
[2020-10-02] MEDS: SPIRONOLACTONE 25 MG TAB PO SCH (08:09)
[2020-10-02] MEDS: LEVOTHYROXINE SODIUM 25 MCG TABLET PO SCH (08:09)
[2020-10-02] MEDS: POTASSIUM CHLORIDE 10 MEQ TABCR PO SCH (08:09)
[2020-10-02] MEDS: ATORVASTATIN 40 MG TAB PO SCH (08:10)
[2020-10-02] MEDS: SERTRALINE HCL 50 MG TABLET PO SCH (08:10)
[2020-10-02] MEDS: MULTIVITAMIN TAB PO SCH (08:10)
[2020-10-02] MEDS: LIDOCAINE 5% 1 PATCH TD SCH (08:11)
[2020-10-02] MEDS: DOCUSATE SODIUM 100 MG CAP PO SCH ×2 (08:11→20:19)
[2020-10-02] MEDS: HEPARIN SOD 5,000 UNIT/0.5 ML VIAL SQ SCH ×2 (08:12→20:19)
[2020-10-02] MEDS: INSULIN ASPART 100 UNITS/ML 3 ML PEN SC SCH ×4 (08:13→21:14)
[2020-10-02] MEDS: SENNA 8.6 MG TAB PO SCH (20:18)
[2020-10-02] MEDS: GABAPENTIN 300 MG CAP PO SCH (20:19)
--- NOTE | 2020-10-02 20:55 | Hospitalist Progress Note ---
Date of Service October 02, 2020 Assessment & Plan (1) Degenerative joint disease of left hip: Left ANTOINETTE performed by Dr. Palmer 09/29. POD # 3. (2) Coronary artery disease: History of CAD, s/p PCI with stent. No anginal symptoms. Continue aspirin, metoprolol, statin. (3) Chronic diastolic heart failure: Compensated. Resumed spironolactone. (4) Atrial fibrillation: Rate controlled on digoxin and metoprolol. Anticoagulation with apixaban held for surgery- resume when OK from surgical perspective. (5) Hypertension: BP running a bit low. Missed some doses of metoprolol. Continue metoprolol at redeuced dose with hold parameters. (6) Asthma: Pulmonary status stable. Incentive spirometry postop. (7) Prediabetes: Hgb A1c = 6.2. FBS today = 129. Insulin coverage PRN. (8) DVT prophylaxis: History of chronic AF & DVT. Apixaban held for surgery. Received SQ heparin preoperatively. SCD's and ASA ordered. Resume apixaban postop when OK from surgical perspective. (9) Discharge planning issues: Discharge disposition to be determined. Family Medicine follow-up with Dr. Walters. Ortho follow-up with Dr. Palmer. Admission and Anticipated Discharge Date Admission Date: September 26, 2020 Subjective Recheck for hip pain and other problems. Patient seen in their room around 1350. Doing well. Less postop pain. No new problems. Review of Systems: Constitutional- no fever. Cardiac- no chest pain. Pulmonary- no cough or SOB. GI- no nausea, vomiting, diarrhea, melena, hematochezia. - no dysuria. Otherwise, as noted above. Physical Exam 2 Constitutional: no acute distress Eyes: + anicteric sclerae Respiratory: normal respiratory effort, lungs clear to auscultation Cardiovascular: Rate/Rhythm: + irregularly irregular Vessels: no JVD Extremities: no calf tenderness and no edema Gastrointestinal (Abdomen): normal bowel sounds, soft, nontender, no hepatosplenomegaly Musculoskeletal: Extremities: no cyanosis Skin: no rashes, warm and dry Psychiatric: Orientation: alert and oriented x 3 Results & Data Results & Data ([facility]) Vital Signs (Past 12 Hours) Vital Signs Temp Pulse Pulse Resp BP Pulse Ox 10/02/20 20:25 109/62 10/02/20 15:06 78 10/02/20 10:51 36.6 C 63 18 106/67 95 Laboratory Results 10/02/20 05:56 10/02/20 05:56
[2020-10-03] MEDS: ACETAMINOPHEN 500 MG TAB PO SCH ×3 (05:36→21:49)
[2020-10-03] MEDS: LEVOTHYROXINE SODIUM 25 MCG TABLET PO SCH (08:35)
[2020-10-03] MEDS: DOCUSATE SODIUM 100 MG CAP PO SCH ×2 (08:35→20:25)
[2020-10-03] MEDS: POTASSIUM CHLORIDE 10 MEQ TABCR PO SCH (08:35)
[2020-10-03] MEDS: ATORVASTATIN 40 MG TAB PO SCH (08:36)
[2020-10-03] MEDS: SERTRALINE HCL 50 MG TABLET PO SCH (08:36)
[2020-10-03] MEDS: ASPIRIN 81 MG ECTAB PO SCH ×2 (08:36→20:25)
[2020-10-03] MEDS: MULTIVITAMIN TAB PO SCH (08:36)
[2020-10-03] MEDS: SPIRONOLACTONE 25 MG TAB PO SCH (08:36)
[2020-10-03] MEDS: HEPARIN SOD 5,000 UNIT/0.5 ML VIAL SQ SCH ×2 (08:37→20:26)
[2020-10-03] MEDS: METOPROLOL SUCC 50MG EXT REL TAB PO SCH ×2 (08:37→20:28)
[2020-10-03] MEDS: INSULIN ASPART 100 UNITS/ML 3 ML PEN SC SCH ×4 (08:39→20:46)
[2020-10-03] MEDS: LIDOCAINE 5% 1 PATCH TD SCH (10:04)
--- NOTE | 2020-10-03 12:50 | Hospitalist Progress Note ---
Date of Service October 03, 2020 Assessment & Plan (1) Degenerative joint disease of left hip: Left ANTOINETTE performed by Dr. Palmer 09/29. POD # 4. Per Ortho 10/02: -DVT ppx: SCDs, TEDS, 81mg ASA BID -PT/OT -WBAT LLE -Posterior hip precautions Will change antithrombotic management to apixaban due to chronic AF and need for full anticoagulation. (2) Coronary artery disease: History of CAD, s/p PCI with stent. No anginal symptoms. Continue aspirin, metoprolol, statin. (3) Chronic diastolic heart failure: Compensated. Resumed spironolactone. (4) Atrial fibrillation: Rate controlled on digoxin and metoprolol. Anticoagulation with apixaban held for surgery- resume at time of discharge. (5) Hypertension: Takes metoprolol succinate 100 mg twice a day at home. BP low at times postop and missed several doses of metoprolol. Now receiving metoprolol succinate at reduced dose of 50 mg BID with hold parame ters. BP this morning 121/72, 114/72. (6) Asthma: Pulmonary status stable. (7) Prediabetes: Hgb A1c = 6.2. FBS today = 89. NovoLog ordered PRN, but has required minimal coverage. (8) COVID-19 ruled out: 09/26/20 SARS-CoV-2 Ag negative. 09/28/20 SARS-CoV-2 PCR negative. 10/03/20 SARS-CoV-2 Ag negative. (9) DVT prophylaxis: History of chronic AF & DVT. Apixaban held for surgery. Received SQ heparin preoperatively. SCD's and ASA ordered postop. Resume apixaban at time of discharge. (10) Discharge planning issues: Anticipated need for skilled care. Awaiting insurance auth. Family Medicine follow-up with Dr. Walters. Ortho follow-up with Dr. Palmer. Admission and Anticipated Discharge Date Admission Date: September 26, 2020 Subjective Recheck for hip pain and other problems. Patient seen in their room around 1100. Doing well. Less postop pain. Out of bed in chair. No new problems. Review of Systems: Constitutional- no fever. Cardiac- no chest pain. Pulmonary- rare minimal cough, no SOB. GI- passing flatus and stool; no nausea, vomiting, diarrhea, melena, hematochezia. - no dysuria; chronic urinary incontinence. Otherwise, as noted above. Physical Exam Constitutional: no acute distress Eyes: + anicteric sclerae Respiratory: normal respiratory effort, lungs clear to auscultation Cardiovascular: Rate/Rhythm: + irregularly irregular Vessels: no JVD Extremities: no calf tenderness and no edema Gastrointestinal (Abdomen): normal bowel sounds, soft, nontender, no hepatosplenomegaly Musculoskeletal: Extremities: + extremities abnormal to inspection (left hip bandaged) and no cyanosis Skin: no rashes, warm and dry Psychiatric: Orientation: alert and oriented x 3 Results & Data Results & Data ([facility]) Vital Signs (Past 12 Hours) Vital Signs Temp Pulse Pulse Resp BP Pulse Ox 10/03/20 11:00 36.5 C 93 H 18 114/72 97 10/03/20 07:31 36.8 C 77 16 121/72 96 10/03/20 03:59 36.5 C 85 16 121/66 94 Laboratory Results Laboratory Results - last 24 hr 10/02/20 10/02/20 10/03/20 16:45 20:21 07:32 POC Glucose 118 H 113 H 89 10/03/20 11:43 POC Glucose 142 H
[2020-10-03] MEDS: oxyCODONE HCL IR 5 MG TAB (IMMEDIATE RELEASE) PO PRN (13:17)
[2020-10-03] MEDS: DIGOXIN 0.125 MG TAB PO SCH (15:32)
[2020-10-03] MEDS: SENNA 8.6 MG TAB PO SCH (20:23)
[2020-10-03] MEDS: GABAPENTIN 300 MG CAP PO SCH (20:24)
[2020-10-04] MEDS: oxyCODONE HCL IR 5 MG TAB (IMMEDIATE RELEASE) PO PRN ×2 (00:18→10:00)
[2020-10-04] MEDS: ACETAMINOPHEN 500 MG TAB PO SCH (05:13)
[2020-10-04] MEDS: LEVOTHYROXINE SODIUM 25 MCG TABLET PO SCH (08:30)
[2020-10-04] MEDS: ATORVASTATIN 40 MG TAB PO SCH (08:30)
[2020-10-04] MEDS: SPIRONOLACTONE 25 MG TAB PO SCH (08:31)
[2020-10-04] MEDS: POTASSIUM CHLORIDE 10 MEQ TABCR PO SCH (08:31)
[2020-10-04] MEDS: METOPROLOL SUCC 50MG EXT REL TAB PO SCH (08:31)
[2020-10-04] MEDS: HEPARIN SOD 5,000 UNIT/0.5 ML VIAL SQ SCH (08:32)
[2020-10-04] MEDS: DOCUSATE SODIUM 100 MG CAP PO SCH (08:32)
[2020-10-04] MEDS: ASPIRIN 81 MG ECTAB PO SCH (08:32)
[2020-10-04] MEDS: SERTRALINE HCL 50 MG TABLET PO SCH (08:32)
[2020-10-04] MEDS: MULTIVITAMIN TAB PO SCH (08:35)
[2020-10-04] MEDS: INSULIN ASPART 100 UNITS/ML 3 ML PEN SC SCH (08:35)
[2020-10-04] MEDS ORDERED: ACETAMINOPHEN 500 MG TAB PO ONE (09:41)
--- NOTE | 2020-10-04 09:48 | Hospitalist Progress Note ---
Date of Service October 04, 2020 Assessment & Plan (1) Degenerative joint disease of left hip: Presented with chronic / worsening left hip pain. CT HIP: IMPRESSION: 1. No acute fracture or dislocation. 2. Severe severe joint space narrowing with pronounced subchondral sclerosis and subcortical cystic changes/erosions are redemonstrated. Underlying avascular necrosis would be difficult to exclude. 3. Unchanged small joint effusion with numerous corticated intra-articular loose bodies. Left ANTOINETTE performed by Dr. Palmer 09/29. Path showed severe degenerative joint disease and mild chronic synovitis. POD # 5. Per Ortho 10/02: -DVT ppx: SCDs, TEDS, 81mg ASA BID -PT/OT -WBAT LLE -Posterior hip precautions Will change antithrombotic management to apixaban due to chronic AF and need for full anticoagulation. (2) Coronary artery disease: History of CAD, s/p PCI with stent. No anginal symptoms. Continue aspirin, metoprolol, statin. Metoprolol succinate dose decreased to 50 mg BID due to low blood pressures. (3) Chronic diastolic heart failure: Compensated. Resumed spironolactone. (4) Atrial fibrillation: Rate controlled on digoxin and metoprolol. Metoprolol succinate dose decreased to 50 mg BID due to low blood pressures. Anticoagulation with apixaban held for surgery- resume at time of discharge. (5) Hypertension: Takes metoprolol succinate 100 mg twice a day at home. BP low at times postop and missed several doses of metoprolol. Now receiving metoprolol succinate at reduced dose of 50 mg BID with hold parameters. BP this morning 137/77. (6) Asthma: Pulmonary status stable. (7) Prediabetes: Hgb A1c = 6.2. FBS today = 112. NovoLog ordered PRN, but has required minimal coverage. No need to continue insulin coverage after DC. Follow FBS and Hgb A1c periodically. (8) COVID-19 ruled out: 09/26/20 SARS-CoV-2 Ag negative. 09/28/20 SARS-CoV-2 PCR negative. 10/03/20 SARS-CoV-2 Ag negative. (9) DVT prophylaxis: History of chronic AF & DVT. Apixaban held for surgery. Received SQ heparin preoperatively. SCD's and ASA ordered postop. Resuming apixaban at time of discharge. (10) Discharge planning issues: Needs skilled care. Arrangements being made for transfer to [facility]. Family Medicine follow-up with Dr. Walters. Ortho follow-up with Dr. Palmer. Cardiology follow-up with Sara Nunez PA-C. Admission and Anticipated Discharge Date Admission Date: September 26, 2020 Subjective Recheck for hip pain and other problems. Patient seen in their room around 0920. Doing well. Less postop pain. No new problems. Review of Systems: Constitutional- no fever. Cardiac- no chest pain. Pulmonary- no cough or SOB. GI- passing flatus and stool; no nausea, vomiting, diarrhea, melena, hematochezia. - no dysuria; chronic urinary incontinence. Otherwise, as noted above. Physical Exam Constitutional: no acute distress Eyes: + anicteric sclerae Respiratory: normal respiratory effort, lungs clear to auscultation Cardiovascular: Rate/Rhythm: + irregularly irregular Vessels: no JVD Extremities: no calf tenderness and no edema Gastrointestinal (Abdomen): normal bowel sounds, soft, nontender, no hepatosplenomegaly Musculoskeletal: Extremities: + extremities abnormal to inspection (left hip bandaged) and no cyanosis Skin: no rashes, warm and dry Psychiatric: Orientation: alert and oriented x 3 Results & Data Results & Data ([facility]) Vital Signs (Past 12 Hours) Vital Signs Temp Pulse Pulse Resp BP Pulse Ox 10/04/20 07:38 82 18 137/77 98 10/04/20 04:07 36.5 C 78 18 93/55 L 98 10/04/20 02:24 88 10/03/20 23:00 36.8 C 80 18 107/60 97
--- NOTE | 2020-10-04 09:59 | Discharge Summary ---
Date of Service Date of Admission: 09/26/20 Date of Discharge: 10/04/20 Admission HPI Per Admitting Provider History obtained from patient and records. Medical history significant for chronic diastolic heart failure (EF 55%, TTE 2019), CAD status post stent, A. fib on Eliquis, hypertension, hyperlipidemia, DM 2 diet-controlled, breast cancer left status post surgery status post radiation, tamoxifen Rx, past history DVT as per records (2017), mood disorder, hypothyroidism, chronic left hip pain/avascular necrosis as per records. Last confinement 3 weeks ago at the behavioral health unit for suicidality. Patient has had worsening chronic left hip pain for for more than a year now. Elective surgery scheduled by [facility] 2 weeks from now. Outpatient [facility] preop eval last May 2020. Updated outpatient TTE as follows : Normal LV systolic, LVEF 55%, mild MR, mild global hypokinesis now resolved. Cardiology provider recommended stopping Plavix home Rx for good; holding Eliquis for 3 days prior to date of surgery and continuing aspirin 81 mg without interruption perioperatively. In the last week patient noted worsening of left hip pain. Possible twisting event. No chest pain, no shortness of breath, no fever, no chills. Recent narcotic regimen changed by PCP lasting long enough as per patient. Intractable discomfort at the ER. Principal Diagnosis severe degenerative joint disease left hip Discharge Data Allergies Allergy/AdvReac Type Severity Reaction Status Date / Time adhesive Allergy Unknown HEAVIER Verified 09/25/20 23:01 SURG TAPE-REDNESS SORE SKIN cat dander Allergy Unknown ITCHY Verified 09/25/20 23:01 NOSE, ITCHY EYES,RUNNY NOSE grass pollen-perennial rye, Allergy Unknown GRASS,MOLD-ITCHY Verified 09/25/20 23:01 standar EYES RUNNY NOSE latex Allergy Unknown CONTACT Verified 09/25/20 23:01 DERMATITIS tetanus toxoid, adsorbed Allergy Unknown SWELLING Verified 09/25/20 23:01 AT SITE KOLE Inhibitors AdvReac Unknown COUGH Unverified 09/25/20 23:01 Consultations 09/26/20 00:14 ED Decision to Admit Stat 09/26/20 02:46 Consult Orthopedic Surgery Routine 09/30/20 08:00 Consult Case Management - Discharge Planning Routine Procedures Performed Operation Date: 09/29/20 11:45 Actual Procedures p Left Total Hip Arthroplasty(Left) - Dilip Palmer, Ordered Studies 09/25/20 22:21 CT hip LT wo con Urgent CT lumbar spine wo con Urgent Hospital Course (1) Degenerative joint disease of left hip: Presented with chronic / worsening left hip pain. CT HIP: IMPRESSION: 1. No acute fracture or dislocation. 2. Severe severe joint space narrowing with pronounced subchondral sclerosis and subcortical cystic changes/erosions are redemonstrated. Underlying avascular necrosis would be difficult to exclude. 3. Unchanged small joint effusion with numerous corticated intra-articular loose bodies. Left ANTOINETTE performed by Dr. Palmer 09/29. Path showed severe degenerative joint disease and mild chronic synovitis. POD # 5. Per Ortho 10/02: -DVT ppx: SCDs, TEDS, 81mg ASA BID -PT/OT -WBAT LLE -Posterior hip precautions Will change antithrombotic management to apixaban due to chronic AF and need for full anticoagulation. (2) Coronary artery disease: History of CAD, s/p PCI with stent. No anginal symptoms. Continue aspirin, metoprolol, statin. Metoprolol succinate dose decreased to 50 mg BID due to low blood pressures. (3) Chronic diastolic heart failure: Compensated. Resumed spironolactone. (4) Atrial fibrillation: Rate controlled on digoxin and metoprolol. Metoprolol succinate dose decreased to 50 mg BID due to low blood pressures. Anticoagulation with apixaban held for surgery- resume at time of discharge. (5) Hypertension: Takes metoprolol succinate 100 mg twice a day at home. BP low at times postop and missed several doses of metoprolol. Now receiving metoprolol succinate at reduced dose of 50 mg BID with hold parameters. BP day of DC 137/77. (6) Asthma: Pulmonary status stable. (7) Prediabetes: Hgb A1c = 6.2. FBS day of DC 112. NovoLog ordered PRN, but has required minimal coverage. No need to continue insulin coverage after DC. Follow FBS and Hgb A1c periodically. (8) COVID-19 ruled out: 09/26/20 SARS-CoV-2 Ag negative. 09/28/20 SARS-CoV-2 PCR negative. 10/03/20 SARS-CoV-2 Ag negative. (9) DVT prophylaxis: History of chronic AF & DVT. Apixaban held for surgery. Received SQ heparin preoperatively. SCD's and ASA ordered postop. Resuming apixaban at time of discharge. (10) Discharge planning issues: Needs skilled care. Arrangements being made for transfer to [facility]. Family Medicine follow-up with Dr. Walters. Ortho follow-up with Dr. Palmer. Cardiology follow-up with Sara Nunez PA-C. Total Time Total Time Spent Total Time Spent (In Minutes): 45 Discharge Plan Discharge Items Patient Disposition: Transfer [facility] Fac Reason For Visit: left hip pain Discharge Diagnosis: degenerative joint disease left hip Condition on Discharge: Good Activity: As commented below Activity Comment: With walker and assistance. Hip precautions. Non-emergency contact: Primary Care Provider, Hospitalist and Surgeon Call non-emergency contact if: you have any medication questions, your symptoms worsen and your pain is not controlled Follow-up/Referrals: Kari Walters, [Primary Care Provider] - (Please arrange for clinic visit after discharge to home.) Diet: Heart Healthy Reyna Attending Provider Instructions: Thank you for receiving this patient in transfer. Please call or TigerText if you have any questions. Shay Hargrove Add Payable Representative Provider Instructions: ACTIVITY RECOMMENDATIONS: SELF CARE INSTRUCTIONS AFTER TOTAL HIP REPLACEMENT Until the incision and soft tissues around your hip have healed, there is a possibility that the hip prosthesis could dislocate. A. Observe the following precautions to prevent dislocation: 1. Don't bend your hip greater than 90 degrees. 2. Avoid crossing your legs or ankles while standing or lying. 3. Sit with your feet placed 6 inches apart. 4. When sitting, keep your knees below your hips. Sit on a firm surface, avoid deep, soft chairs and couches. Use an elevated toilet seat in the bathroom. 5. Don't bend over at the waist. Use a long handled shoehorn and a sock aid to help you put on your shoes and socks. A merchandise presentation manager can help you tack picker objects that are too high or too low to reach. 6. Keep car riding to a minimum for at least one month after surgery. B. Your balance may be shaky for a while. Use crutches or a walker until directed by your doctor. C. Use hand rails when walking on stairs. D. Wear low heeled shoes with non-slip soles. E. Be sure that your floors are free of things that could trip you - throw rug s, electrical cords, small objects. Avoid wet and waxed floors, especially with crutches and canes. F. Try to walk several times a day with rest periods between. G. Continue with all the exercises taught to you in the hospital. Again, make walking a part of your daily routine. SPECIAL CARE INSTRUCTIONS: VERY IMPORTANT TO READ AND REVIEW A. You may still be at risk for phlebitis and blood clots. 1. Wear surgical stockings (CAMILLE hose) for 2 weeks after surgery to improve circulation and reduce swelling. -2-.- - - -T-a-k-e- -P-y-u-i-r-i-n- -8-1-m-g- -t-w-i-c-e- -d-a-i-l-y- -f-o-r- -4- -w-e-e-k-s- -o-r- -a-s- -w-d-b-e-c-t-e-d- -b-y- -y-o-u-r- -k-v-o-t-o-r-.- - -T-h-i-s- - - - - - - - - - - - - - - - - - -i-s- -y-o-u-r- -b-l-o-o-d- -a-n-i-n-n-e-r-.- 3. High risk patients may be prescribed a stronger blood thinner if necessary. -4-.- - - -I-f- -y-o-u- -a-r-e- -o-n- -G-s-i-m-a-d-i-n- -o-h-g-m-a-l-l-y-,- -y-o-u-r- -n-b-q-i-l-y- -b-h-y-t-o-r-/-i-e-z-f-a-l-n-r-n-i-s-t- -d-x-n-u-l-d- -j-k-x-i-t-o-r- - - - - - - - - - - - - - - - - - -y-o-u-r- -b-l-o-o-d- -w-o-r-k-.- - - -H-h-r-e-c-t- -a- -p-h-o-n-e- -c-a-l-l- -t-h-e- -d-a-y- -o-f- -o-r- -t-h-e- -d-a-y- -a-f-t-e-r- -l-w-k-g-l-b-o-r-k- -i-s- - - - - - - - - - - - - - - - - - -d-r-a-w-n- -t-o- -c-g-s-u-s-t- -y-o-u-r- -x-h-x-a-g-e-.- B. You must take antibiotics before having dental work, bladder, bowel and other surgery. Your doctor will provide you with a permanent card to carry describing precautions. C. Call [facility] if you have a fever, redness or swelling around the incision, cloudy drainage from incision, or sudden increase in pain in your hip, not relieved by your regular pain medication. D. Please call the office at if you have any concerns or questions about your operation or recovery. * YOU MAY SHOWER, NO TUB BATHS UNTIL CLEARED BY YOUR DOCTOR. * WEAR CAMILLE HOSE 20 HOURS PER DAY FOR 2 WEEKS. * YOU SHOULD USE A WALKER OR CRUTCHES FOR 2-4 WEEKS. THIS WILL HELP PREVENT STRAIN ON YOUR HIP MUSCLE AND ALLOW IT TO HEAL PROPERLY. YOU MAY WEAN TO A CANE TOLERATED. * MOST PATIENTS WILL HAVE HOME NURSING FOR THERAPY. IF YOU DECIDE TO DO OUTPATIENT PHYSICAL THERAPY, PLEASE SCHEDULE THIS 3 TIMES PER WEEK. * YOU MAY HAVE A LARGE, BAND-DEANDRE LIKE DRESSING (SILVERON). THIS WILL REMAIN ON YOUR INCISION FOR 7 DAYS, THEN CAN BE REMOVED. IF INCISION IS LEAKING THROUGH DRESSING, PLEASE CALL THE OFFICE . FOLLOW UP VISIT: If appointment is not already scheduled: Please call [facility] to make a follow-up appointment for 2 weeks after your surgery at . Pending Studies at Discharge: No Stand-Alone Forms: My [facility] Skilled Items Patient informed of condition?: Yes DNR: No Discharge Level of Care: Skilled Communicable Disease: No Discharge Prognosis: Improving Lines: None Urinary Catheter: No Medications and DC Order Prescriptions: New metoprolol succinate 50 mg Tablet Extended Release 24 Hr 50 mg PO BID Qty: 60 RF: 0 docusate sodium 100 mg Capsule 100 mg PO BID Qty: 60 RF: 0 bisacodyl 10 mg Suppository 10 mg ID DAILY PRN (Reason: constipation) Qty: 12 RF: 0 sennosides [Senokot] 8.6 mg Tablet 17.2 mg PO HS Qty: 30 RF: 0 acetaminophen 500 mg Tablet 1,000 mg PO Q8 Qty: 60 RF: 0 polyethylene glycol 3350 [Miralax] 17 gram powder in packet 17 g PO BID PRN (Reason: constipation) Qty: 30 RF: 0 oxycodone 5 mg tablet 5 mg PO Q6H PRN (Reason: pain) Qty: 10 RF: 0 Continued Eliquis 5 mg tablet 5 mg PO BID RF: 0 gabapentin 300 mg capsule 300 mg PO HS RF: 0 digoxin 125 mcg (0.125 mg) tablet 125 mcg PO 3XWK RF: 0 potassium chloride 10 mEq tablet,ER particles/crystals 10 meq PO DAILY RF: 0 spironolactone 25 mg tablet 25 mg PO QAM RF: 0 albuterol sulfate [Ventolin HFA] 90 mcg/actuation Hfa Aerosol Inhaler 1 inh INHALATION QID PRN (Reason: sob) RF: 0 levothyroxine 25 mcg tablet 25 mcg PO QAM RF: 0 atorvastatin 40 mg Tablet 40 mg PO QAM Qty: 30 RF: 5 nitroglycerin [Nitrostat] 0.4 mg tablet, sublingual 0.4 mg Sublingual Q5M PRN (Reason: chest pain) Qty: 25 RF: 1 aspirin [Aspirin Low Dose] 81 mg Tablet,Delayed Release (Dr/Ec) 81 mg PO DAILY RF: 0 sertraline 50 mg Tablet 50 mg PO QAM Qty: 30 RF: 0 Discontinued oxycodone-acetaminophen 5-325 mg tablet 1 tab PO Q6 PRN (Reason: Pain) RF: 0 metoprolol succinate 100 mg tablet extended release 24 hr 100 mg PO BID RF: 0 Krames/Other Patient Handouts: 5 Steps for Eating Healthier, A1C Admission Data Admit Date/Time: 09/26/20 18:08 Attending Provider: Shay Hargrove Admit Provider: Michael Yeager Primary Care Provider: Kari Walters Other Providers: Veena [place] at [place] ; Grady Griffiths ; Michael Yeager ; Eddi Potts ; uHy Sweeney ; Dameon Khanna ; Savanna Castaneda ; Cezar Dean ; Marcia Edward ; Addy Lock ; Johann Saenz ; Yony Westbrook ; Johann Samuels ; Trevon Diaz. ; Yony Sky ; Aamir Saldaña ; Clive Wei ; Dinesh Falcon ; Antelmo Perla ; Dawood Lambert ; Marcia Moore ; Dilip Palmer ; Ankur Wells ; Ludy Ordoñez ; Shay Rivera ; Latisha Pacheco
[2020-10-04] MEDS: LIDOCAINE 5% 1 PATCH TD SCH (10:42)
== END 2020-10-04 11:46 | DRG 470 ==
LOC: 2N 22:15 → ED 22:15 → 2N 09-26 02:22 → SUATTDRO 09-26 18:08

== ENCOUNTER 2021-01-05 08:27 | Observation (INO) ==
[2021-01-05] MEDS ORDERED: ASPIRIN 81 MG CHEW ONE (09:11)
[2021-01-05] MEDS ORDERED: fentaNYL citrate 100 MCG/2 ML VIAL ONE ×2 (09:18→12:03)
[2021-01-05] MEDS ORDERED: niCARdipine HCL INJ 2.5 MG/ML 10 ML AMP ONE ×2 (09:18→10:31)
[2021-01-05] MEDS ORDERED: MIDAZOLAM HCL 1 MG/ML 2ML VIAL ONE ×2 (09:18→11:30)
[2021-01-05] MEDS ORDERED: HEPARIN (PORCINE) 1000 UNIT/ML 10 ML (CATH LAB USE ONLY) ONE ×2 (09:18→11:31)
[2021-01-05] MEDS ORDERED: NITROGLYCERIN/D5W 100MCG/ML 20ML SYR ONE (09:19)
--- NOTE | 2021-01-05 09:38 | History & Physical Bridge Note ---
Date of Service January 05, 2021 History & Physical Bridge Note I have examined the patient, reviewed the History & Physical and in the interval since the performance of the History & Physical I have noted the following changes of clinical significance: no changes noted
--- NOTE | 2021-01-05 09:38 | Pre Anesthesia Assessment ---
Date of Service January 05, 2021 Pre Sedation Assessment Vital Signs Temp Pulse Resp BP Pulse Ox 01/05/21 09:02 36.6 C 95 H 18 145/93 H 97 Cardiovascular RRR, no murmur, no edema Respiratory normal respiratory effort, lungs clear to auscultation Pre-Sedation Airway Assessment Smoking Status: Never smoker Hx Sleep Apnea: No Hx Difficult Intubation: No Thyromental Distance: > or= 3.5 Finger Breadths Oral Cavity: + WNL Mallampati Class: II ASA: ASA2 NPO Status Date of Last Intake of Fluids: 01/04/21 Date of Last Intake of Solid Food: 01/04/21 Procedure Planning Contraindications for Sedation: none Current Medications Reviewed: Yes Notes The planned sedation has been discussed with the patient. Informed Consent was obtained. I have identified the patient, determined the appropriateness of sedation and have assessed the patient immediately prior to the procedure. All medicine(s) and interventions are by my order.
--- NOTE | 2021-01-05 10:55 | Cardiac Catheterization ---
Cardiac Cath Procedure Brief Procedure Date January 05, 2021 Procedure performed via right femoral access using 5 Macanese arterial sheath, 5 Macanese JL4, 5 Macanese 3 DRC, 5 Macanese straight pigtail Pre-Procedure Diagnosis Pre-Procedure Diagnosis: Angina and Positive Stress Test AUC Score AUC Score: 8 Post-Procedure Diagnosis Post-Procedure Diagnosis: Severe CAD (Mid to distal left anterior descending and LAD diagonal) Procedure(s) Performed Procedure(s) Performed: Coronary Angiography and Left Heart Cath Departmental Shipping Clerk Paul Toussaint MD Marker Machine Attendant(s) Latisha Prado Estimated Blood Loss Estimated Blood Loss: <15cc Medication(s) Medication(s): Fentanyl (12.5 mcg IV x 3), Lidocaine 1% (Local infiltration access site) and Versed (1 mg IV) Preliminary Findings Right dominant coronary anatomy Left main: Normal length and caliber and free of disease Left anterior descending: Type III in distribution. Gives rise to a moderate- sized bifurcating diagonal branch in its proximal third of small second diagonal branch in its midportion and courses to beyond the apex. Within the left anterior descending there is a discrete 80% stenosis at the junction of its mid and apical segments. At the apical segment being modest in caliber. Left anterior descending diagonal has an ulcerated 80% stenosis. Left circumflex: Moderately large but nondominant distribution. Gives rise to a high marginal branch and an obtuse marginal branch there is no disease. Right coronary artery: Large caliber dominant distribution. Gives rise to a sinoatrial branch in its proximal third 2 small right ventricular branches in its midportion and that the AV groove along bifurcating posterior descending artery and along the AV groove a multibranching terminal posterior ventricular branch. Within the right coronary distribution coronary stents in the proximal portion are widely patent. There are moderate irregularities in its mid and distal portions but no obstructive disease. LV angiography: Not performed Hemodynamics: LV pressure was 159/2 with LVEDP of 12. There is no transaortic valve gradient on pullback Recommendations Recommendations: PCI without planned CABG Fluids (cc crystalloids) Fluids (cc crystalloids): 75 Anesthesia Start time: , stop time: 1025 Procedural Complication(s) None
--- NOTE | 2021-01-05 11:01 | Cardiac Catheterization ---
Cardiac Cath Procedure Full Procedure Date January 05, 2021 Pre-Procedure Diagnosis Pre-Procedure Diagnosis: Angina and Positive Stress Test AUC Score AUC Score: 8 Post-Procedure Diagnosis Post-Procedure Diagnosis: Severe CAD (Mid to distal left anterior descending and LAD diagonal) Procedure(s) Performed Procedure(s) Performed: Coronary Angiography and Left Heart Cath Cdl Instructor Paul Toussaint MD Steward/Stewardess Economy Class(s) Latisha Prado Estimated Blood Loss Estimated Blood Loss: <15cc Medication(s) Medication(s): Fentanyl (12.5 mcg IV x 3), Lidocaine 1% (Local infiltration access site) and Versed (1 mg IV) Summary of Findings Right dominant coronary anatomy Left main: Normal length and caliber and free of disease Left anterior descending: Type III in distribution. Gives rise to a moderate- sized bifurcating diagonal branch in its proximal third of small second diagonal branch in its midportion and courses to beyond the apex. Within the left anterior descending there is a discrete 80% stenosis at the junction of its mid and apical segments. At the apical segment being modest in caliber. Left anterior descending diagonal has an ulcerated 80% stenosis. Left circumflex: Moderately large but nondominant distribution. Gives rise to a high marginal branch and an obtuse marginal branch there is no disease. Right coronary artery: Large caliber dominant distribution. Gives rise to a sinoatrial branch in its proximal third 2 small right ventricular branches in its midportion and that the AV groove along bifurcating posterior descending artery and along the AV groove a multibranching terminal posterior ventricular branch. Within the right coronary distribution coronary stents in the proximal portion are widely patent. There are moderate irregularities in its mid and distal portions but no obstructive disease. LV angiography: Not performed Hemodynamics: LV pressure was 159/2 with LVEDP of 12. There is no transaortic valve gradient on pullback Hemodynamics Rest Ao:: 153/91/116 Final Ao: 162/94/124 LV: 159/2/12 Recommendations Recommendations: PCI without planned CABG Specimens Specimens: None Radiation Exposure (mGy) 534 Contrast (mls) 55 Fluids (cc crystalloids) Fluids (cc crystalloids): 75 Anesthesia Start time: 09 57, stop time: 1025 Procedural Complication(s) None I attest to the content of the Intraoperative Record and any orders documented therein. Any exceptions are noted below. ACC Data: Rn Or Lpn Cardiac Status Clinical evaluation leading to the procedure Patient is a 75-year-old female with known coronary disease, chronic atrial f ibrillation referred for evaluation of symptoms of exertional chest pressure and shortness of breath as well as preoperative assessment prior to elective hip surgery. Patient underwent Lexiscan stress nuclear imaging with study demonstrating apical ischemia. Medications were titrated upward and patient referred for diagnostic cardiac catheterization CAD Presenation: Positive Stress Test Anginal Classification: CCS III Heart Failure: No Cardiogenic Shock within 24 Hours: No Cardiac Arrest within 24 Hours: No Imaging Studies Past 6 Months: Yes Stress Studies Past 6 Months: Yes Standard Exercise Test: No Stress Echocardiogram: No Stress Testing w/SPECT MPI: Yes - Positive Coronary Anatomy Dominant: Right Left Main (% Stenosis): Normal LAD (% Stenosis): Mid (80) D1 (% Stenosis): Mid (80) D2 (% Stenosis): Normal Circumflex (% Stenosis): Normal OM1 (% Stenosis): Normal OM2 (% Stenosis): Normal RCA (% Stenosis): Proximal (Patent stent) and Mid (Mild to moderate irregularities) R PDA (% Stenosis): Distal (Moderate irregularities) R PL1 (% Stenosis): Distal (Moderate irregularities) Diagnostic Physicians Name: Paul Toussaint MD Status: Elective Closure Device Percutaneous Entry Location: Femoral Recommendations: PCI without planned CABG
[2021-01-05] MEDS ORDERED: CLOPIDOGREL BISULFATE 300 MG TAB ONE (12:03)
[2021-01-05] MEDS ORDERED: ONDANSETRON INJ 2 MG/ML 2 ML VIAL IV PRN (12:20)
[2021-01-05] MEDS ORDERED: ACETAMINOPHEN 325 MG TAB PO PRN (12:20)
[2021-01-05] MEDS ORDERED: NITROGLYCERIN SL 0.4 MG/TAB TAB SL PRN (12:25)
[2021-01-05] MEDS ORDERED: bisacodyL 10 MG SUPP PR PRN (12:29)
[2021-01-05] MEDS ORDERED: SODIUM CHLORIDE 0.9% 1000ML 1,000 ML IV SCH (12:30)
[2021-01-05] MEDS ORDERED: oxyCODONE HCL IR 5 MG TAB (IMMEDIATE RELEASE) PO PRN (12:39)
--- NOTE | 2021-01-05 14:18 | Communication Note ---
Date of Service: January 05, 2021 Patient seen post cardiac catheterization and coronary intervention. Tolerated procedure well other than chronic hip pain. Patient received drug-eluting stents to the mid left anterior descending and the left and descending diagonal with good result Plan: Observation overnight. We will increase metoprolol succinate to 75 mg twice per day for heart rate and blood pressure control. Apixaban resumed, clopidogrel and aspirin ordered with planned discontinuation of aspirin at 30 days.
[2021-01-05] MEDS ORDERED: INFLUENZA ADMINISTRATION CHARGE ONE (14:22)
[2021-01-05] MEDS ORDERED: INFLUENZA VACCINE HIGH DOSE 65+ 0.7 ML SYR IM ONE (14:22)
--- NOTE | 2021-01-05 18:04 | Cardiac Catheterization ---
ACC Data: [employer] Tr[employer] Pipe Bowls Cardiac Status Clinical evaluation leading to the procedure CAD Presenation: Positive Stress Test Anginal Classification: CCS III Heart Failure: No Cardiogenic Shock within 24 Hours: No Cardiac Arrest within 24 Hours: No Imaging Studies Past 6 Months: Yes Stress Studies Past 6 Months: Yes Stress Echocardiogram: Yes - Positive and Risk/Extent of Ischemia (Intermediate) Diagnostic Physicians Name: Lavelle Akhtar MD Status: Elective Closure Device Percutaneous Entry Location: Radial Closure Device: Radial Band Recommendations: PCI without planned CABG PCI Indication: + Stress Test and Angina despite med therapy Lesion Segment Name: distal LAD Culprit Artery: Yes Stenosis Prior to Rx (%): 80 Chronic Total Occlusion: No IVUS: No FFR: No Pre-Procedure AQUILINO Flow: 3 Previously Treated Lesion: No Lesion Complexity: Non-High/Non-C Lesion Length (mm): 12 Thrombus Present: No Bifurcation Lesion: No Guidewire Across Lesion: Stenosis Post-Procedure (%): 0 Post-Procedure AQUILINO Flow: 3 Devices(s) Deployed: Yes Yes Lesion #2 Segment Name: 1st diagonal Culprit Artery: Yes Stenosis Prior to Rx (%): 80 Chronic Total Occlusion: No IVUS: No FFR: No Pre-Procedure AQUILINO Flow: 3 Previously Treated Lesion: No Lesion Complexity: Non-High/Non-C Thrombus Present: Yes Bifurcation Lesion: No Guidewire Across Lesion: Yes Stenosis Post-Procedure (%): 0 Post-Procedure AQUILINO Flow: 3 Devices(s) Deployed: Yes Intraprocedure Events Significant Disection: No Perforation: No Cardiac Cath Procedure Full Procedure Date January 05, 2021 Pre-Procedure Diagnosis Pre-Procedure Diagnosis: Angina and Positive Stress Test AUC Score AUC Score: 8 Post-Procedure Diagnosis Post-Procedure Diagnosis: Severe CAD (Mid to distal left anterior descending and LAD diagonal) and Successful PCI Procedure(s) Performed Procedure(s) Performed: Coronary Angiography and Drug Eluting Stent Environmental Health Safety Manager Lavelle Akhtar MD Truck Jumper(s) Latisha Prado Estimated Blood Loss Estimated Blood Loss: <15cc Medication(s) Medication(s): Clopidogrel, Fentanyl (12.5 mcg IV x 3), Heparin, Nicardipine, Nitroglycerin and Versed (1 mg IV) Summary of Findings Indication: Exertional dyspnea, abnormal stress test with apical ischemia, prior CAD Access: 6 Fr right radial artery Catheters: EBU 3.75 guide Findings: For full details of patient's coronary angiography please see cath report dictated by Dr. Toussaint. Briefly patient found to have an 80% focal earlydistal stenosis as well as a new 80% stenosis in D1. Decision to proceed with PCI. -- PCI -- Antithrombotic therapy: Heparin, clopidogrel Procedure: Left main cannulated with EBU 3.75 guide BMW wire passed across diagonal lesion into distal vessel Proximal to mid diagonal lesion predilated with 2.0 compliant balloon Dilated lesion stented with 2.25 x 15 mm [place] drug-eluting stent Stent post-dilated with stent balloon Wire removed and earlydistal LAD stenosis eventually crossed with steamboat pilot 50 wire LAD lesion dilated with 2.0 balloon Mid to distal LAD stented with 2.25 x 15 mm [place] drug-eluting stent Stent postdilated with 2.5 NC balloon IC vasodilators administered for spasm Post procedure AQUILINO 3 flow, stents well expanded with minimal residual stenosis and no apparent cardiac complications. Arterial Closure: TR band Summary: 1. Successful PCI of mid to distal LAD focal stenosis with single drug-eluting stent (2.25 x 15 mm [place]; postdilated with 2.5 NC). 2. Successful PCI of proximal first diagonal with single drug-eluting stent (2.25 x 15 mm [place]). Recommendations: To PCU for continued monitoring Loaded with clopidogrel 600 mg in Paint Trimmer Pipe Bowls. Continue triple therapy with aspirin, clopidogrel, apixaban for at least 1 week. Would then continue clopidogrel, apixaban for at least 6 months. Clopidogrel interruption could be considered at 3 months for previously discussed hip surgery. Consult cardiac Rehab Hemodynamics Rest Ao:: 133/94/122 Final Ao: 159/103/119 LV: 159/12 Recommendations Recommendations: PCI without planned CABG Specimens Specimens: None Radiation Exposure (mGy) 2243 Contrast (mls) 150 Fluids (cc crystalloids) Fluids (cc crystalloids): 275 Drains Drains: none Anesthesia Start time: 1106, stop time: 1202 Procedural Complication(s) None Disposition PCU I attest to the content of the Intraoperative Record and any orders documented therein. Any exceptions are noted below. [facility] Card Cath Procedure Codes Moderate Sedation Procedure 1: Sedation/Anesthesia: 63957 Mod Sedation by the same physician; Ea [id number] Minutes Stenting Procedure 1: Cardiovascular Stent Procedures: 68773 Perc transcatheter placement of intracoronary stent(s), with ang Procedure 2: Cardiovascular Stent Procedures: 82313 Ea addl branch of a major coronary artery PG Care Time/CCT Total # of Minutes Spent Total Time Spent with Patient: Total time spent is greater than 50% in coordination of care (as documented) at patient's floor/unit and/or counseling patient:
[2021-01-05] MEDS: METOPROLOL SUCC 50MG EXT REL TAB PO SCH (20:37)
[2021-01-05] MEDS: DOCUSATE SODIUM 100 MG CAP PO SCH (20:37)
[2021-01-05] MEDS ORDERED: SENNA 8.6 MG TAB PO SCH (21:00)
[2021-01-05] MEDS ORDERED: METOPROLOL SUCC 50MG EXT REL TAB PO SCH (21:00)
[2021-01-05] MEDS ORDERED: GABAPENTIN 300 MG CAP PO SCH (21:00)
[2021-01-06] MEDS ORDERED: LEVOTHYROXINE SODIUM 25 MCG TABLET PO SCH (06:30)
[2021-01-06 07:04] LABS: Basophils # (auto) 0.02 K/uL (0-0.2); Basophils % (auto) 0.3 %; Eosinophils # (auto) 0.15 K/uL (0-0.5); Eosinophils % (auto) 2.5 %; Hematocrit (blood only) 38.7 % (37-47); Hemoglobin 12.6 g/dL (12.0-16.0); Immature Granulocytes # (auto) 0.02 K/uL (0.00-0.02); Immature Granulocytes % (auto) 0.3 %; Lymphocytes # (auto) 0.72 K/uL (1.2-3.4); Lymphocytes % (auto) 11.9 %; Mean Corpuscular Hgb Conc 32.6 g/dL (32-36); Mean Platelet Volume 10.6 fL (7.4-10.4); Monocytes # (auto) 0.68 K/uL (0.11-0.59); Monocytes % (auto) 11.2 %; Neutrophils # (auto) 4.46 K/uL (1.4-6.5); Neutrophils % (auto) 73.8 %; Platelet Count 247 K/uL (130-400); RDW Coefficient of Variation 14.3 % (11.5-14.5); RDW Standard Deviation 44.6 fL (36.4-46.3); White Blood Count 6.05 K/uL (4.8-10.8)
[2021-01-06 07:38] LABS: BUN Creatinine Ratio 15.1 (10-20); Calcium 8.5 mg/dl (8.5-10.1); Creatinine Clr Calc Pharmacy 56.7 ml/min; Est GFR (African American) 78.2; Est GFR (Non-African American) 67.5; Potassium 3.7 mmol/L (3.5-5.1)
[2021-01-06] MEDS: METOPROLOL SUCC 50MG EXT REL TAB PO SCH (07:56)
[2021-01-06] MEDS: DOCUSATE SODIUM 100 MG CAP PO SCH (07:58)
[2021-01-06] MEDS ORDERED: DIGOXIN 0.125 MG TAB PO SCH (08:00)
[2021-01-06] MEDS ORDERED: APIXABAN 5 MG TABLET PO SCH (09:00)
[2021-01-06] MEDS ORDERED: SERTRALINE HCL 50 MG TABLET PO SCH (09:00)
[2021-01-06] MEDS ORDERED: CLOPIDOGREL BISULFATE 75 MG TAB PO SCH (09:00)
[2021-01-06] MEDS ORDERED: ASPIRIN 81 MG ECTAB PO SCH (09:00)
[2021-01-06] MEDS ORDERED: SPIRONOLACTONE 25 MG TAB PO SCH (09:00)
[2021-01-06] MEDS ORDERED: ATORVASTATIN 40 MG TAB PO SCH (09:00)
[2021-01-06 10:10] LABS: Appearance Urine Cloudy (Clear); Bacteria Urine Automated 4+ (Negative); Bilirubin Urine Negative (Negative); Blood Urine Trace (Negative); Color Urine Yellow; Epithelial Cell Urine Auto >30 /lpf (0-5); Glucose Urine UA Negative (Negative); Ketones Urine Negative (Negative); Leukocyte Esterase Urine 2+ (Negative); Nitrite Urine Positive (Negative); Protein Urine Negative (Negative); RBC Urine Automated 0-4 /hpf (0-4); Specific Gravity Urine 1.017 (1.000-1.030); Urobilinogen Urine Negative (Negative); WBC Urine Automated >30 /hpf (0-5); pH Urine 5.5 (4.5-7.5)
--- NOTE | 2021-01-06 11:37 | Discharge Summary ---
Date of Service January 06, 2021 Admission HPI Per Admitting Provider Patient is a 75-year-old female with known coronary artery disease with prior coronary intervention of the right coronary artery in August 2019 setting of ACS surrounding prior cardiac catheterization. She had residual disease in the mid to distal left anterior descending. Patient recently referred for evaluation prior to anticipated hip replacement. Patient at that time noted increasing exertional dyspnea and chest pressure. Stress nuclear imaging suggested apical ischemia and patient is referred for diagnostic cardiac catheterization and course of evaluation of symptoms and preoperative evaluation Admission Exam (Per Admitting) Constitutional General: no acute distress and stated age Head: normocephalic, no masses, lesions, tenderness or abnormalities Eyes: conjunctiva are pink and non-injected, sclera clear Neck: supple, no adenopathy, no bruits, normal jugular venous pulse, no hepatojugular reflux Chest: normal shape and normal respiratory effort Lungs: clear to auscultation and percussion Cardiac Exam: - irregular rate & rhythm, borderline tachycardic, no murmurs gallops or rubs - normal S1, normal S2 Pulses: 2(+) throughout Abdomen: abdomen soft, non-tender, no abnormal masses and no hepatosplenomegaly Musculoskeletal: no gait disturbance, no joint inflammation, no deforming arthritis Extremities: 1+ ankle edema and no cyanosis Neuro: grossly normal exam Discharge Data Consultations 01/05/21 12:28 Consult Cardiac Rehabilitation Routine Procedures Performed Operation Date: 01/05/21 09:30 Actual Procedures p Cineradiography w/Routine Exam - Paul Toussaint MD s Cath, Left with Cors and Vent - Paul Toussaint MD s Drug Eluting Stent SGl Vessel - Yony Akhtar MD s Drug Eluting Stent each ADDTL Vessel - Yony Akhtar MD Hospital Course (1) Coronary artery disease: Patient was referred as an outpatient initially to the cardiac cath eterization lab and coronary angiography was performed on 01/05/[address] Paul Toussaint by right femoral artery access Study demonstrated patent stent in the proximal right coronary artery. There wa s progression of disease at the juncture of the mid and apical left anterior descending to 80% and an ulcerated lesion was noted within the LAD diagonal of 80%. After careful evaluation of symptoms testing and review of imaging patient was referred and underwent coronary intervention receiving drug-eluting stents to the left anterior descending and left anterior descending diagonal by Dr. Julian Akhtar uneventfully. Patient was observed in hospital overnight without complication or complaint. Heart rate was notably elevated both prehospital and during stay. Metoprolol succinate was increased to 75 mg twice per day Patient restarted on apixaban, clopidogrel 75 mg/day added to regimen. Patient continued on aspirin 81 mg/day with plans to discontinue in 2 weeks time Ultimate goals apixaban plus clopidogrel minimum 6 months but may be held for planned surgery in 3 months Consider cardiac rehab on discharge follow-up (2) Status post insertion of drug-eluting stent into left anterior descending (LAD) artery: (3) Permanent atrial fibrillation with rapid ventricular response:
--- NOTE | 2021-01-06 23:39 | Electrocardiogram Report ---
Test Reason : Blood Pressure : / mmHG Vent. Rate : 093 BPM Atrial Rate : 192 BPM P-R Int : 000 ms QRS Dur : 082 ms QT Int : 376 ms P-R-T Axes : 000 147 -31 degrees QTc Int : 467 ms Atrial fibrillation Suspect limb lead reversal Low voltage QRS Nonspecific T wave abnormality Abnormal ECG When compared with ECG of 26-SEP-2020 01:25, Limb lead reversal now likely present T wave inversion more evident in Inferior leads Nonspecific T wave abnormality now evident in Anterolateral leads Confirmed by Haresh Calvillo ([id number]) on 01/06/2021 11:39:03 PM Referred By: Sara Nunez Confirmed By:Haresh Calvillo
== END 2021-01-06 10:34 | disposition home or self-care (01) ==
LOC: CC 08:27 → 2S 08:27

== ENCOUNTER 2023-08-20 14:37 | Inpatient (IN) ==
--- NOTE | 2023-08-20 14:44 | ED Triage Note ---
Date of Service August 20, 2023 History of Present Illness This patient was briefly evaluated while in triage. An abbreviated physical exam was performed. This patient is a 78-year-old Female who presents to the ED for evaluation of shortness of breath. She was seen at her PCP today for a follow up after COVID and was sent here for an elevated heart rate. She has a history of a-fib. Physical Exam VITALS: Vitals are noted on the nurse's note and reviewed by myself. GENERAL: This is a 78-year-old female, in no acute distress, well-developed well-nourished. HEART: Regular rate and rhythm without murmurs gallops or rubs. LUNGS: Clear to auscultation bilaterally without wheezes, rales or rhonchi. No retractions or accessory muscle use. NEURO: Patient was alert and oriented to person place and time. Initial orders for labs and / or imaging were placed and patient was placed in the waiting area until a bed is available. Please see further documentation for the full ED course.
--- NOTE | 2023-08-20 15:02 | Emergency Department Note ---
Impression & Plan Atrial fibrillation with rapid ventricular response, Chronic diastolic heart failure, On apixaban therapy, COVID-19 ED Provider Note Provider: Trevon Prince MD DATE OF SERVICE: 08/20/2023 CHIEF COMPLAINT: Rapid A-fib HISTORY OF PRESENT ILLNESS: Patient is a 78-year-old female past medical history including CAD with stents, diastolic heart failure, atrial fibrillation on digoxin and Eliquis presenting here referred from the clinic today due to rapid A-fib and ongoing shortness of breath and cough issues. Patient was seen 2 weeks ago at the [facility] outpatient office by her report and diagnosed with COVID. Completed a course of Paxlovid and had significant GI symptoms. Little bit of diarrhea but this is improved and her fevers have improved. Still with some ongoing shortness of breath a bit of a cough. Feels that she has more significant shortness of breath with ambulation. States compliance with medications including digoxin and her blood thinner. Denies any falls but may be a little bit unsteady on her feet. Denies significant chest pain but does endorse some chest heaviness that is been ongoing. She is unable to give me exact timeframe for this. PAST MEDICAL HISTORY: As noted above MEDICATIONS: Reviewed home medications SOCIAL HISTORY: Has been isolating at home away from her family who are otherwise well with her COVID PHYSICAL EXAM: GENERAL: alert and oriented in no acute distress on stretcher Head: normocephalic and atraumatic EYES: No injection, discharge or icterus. NECK: Trachea midline. ENT: Mucous membranes pink and moist. LUNGS: Airway patent. No retractions. Breath sounds clear with good air entry bilaterally. HEART: R irregularly irregular tachycardic rate and rhythm. No chest wall tenderness ABDOMEN: Soft and non-tender, without guarding or rebound. SKIN: Acyanotic, warm, dry, without rashes EXTREMITIES: Trace bilateral lower extremity swelling. No significant tenderness or erythema. NEUROLOGICAL: No focal deficits. No aphasia. No facial droop or slurred speech. Ambulatory. EK bpm atrial fibrillation rapid ventricular spots with PVC. No acute ST segment elevation with inferior lateral ST flattening and a QTc of 440. CONTINUOUS CARDIAC MONITORING: was ordered and showed a heart rate of 90s-140s bpm in rapid A-fib Patient's laboratory studies and imaging reviewed. Differential includes Reactive airway disease, pneumonia, pneumothorax, COPD, CHF, infections, cardiac ischemia, pulmonary embolism, musculoskeletal, gastrointestinal, as well as other pathologies. IMPRESSION/MEDICAL DECISION MAKING: Patient with some mild A-fib RVR heart rates in the 1 teens but at times dropped into the 90s. With some dyspnea on exertion and some chest heaviness. States compliance medication with anticoagulation lowers my suspicion for PE. Was recently diagnosed with COVID 2 weeks ago although states that symptoms have been improving. No syncope reported. Significant findings of heart failure or edema noted. Blood work here with nonspecific slight leukocytosis 11.6 but no anemia. Considered some IV metoprolol but held as her blood pressure was just below 100. Reviewed epic office note from today and note received from their office and they referred her here today as the patient was scheduled to have additional cardiac testing and echo but this was delayed due to her COVID. Did complete a course of Paxlovid. Does have decent dyspnea on exertion walking around. Ambulation of the bathroom with the dyspnea also provokes A-fib RVR heart rate in the 140s. Digoxin level is therapeutic but has a somewhat odd 3 times a week digoxin dosing schedule at this time which she states compliance with. May be contributing a bit to her uncontrolled rates. Given some IV metoprolol with improvement. No evidence of elevated troponin but did have some chest pressure of unclear length earlier today. Given her illness believe having episodes of A-fib RVR causing her shortness of breath and dyspnea on exertion. Given lack of control here and her ongoing symptoms that she lives alone discussed with her further observation here. Hospitalist team contacted. Patient already anticoagulated. DIAGNOSIS: A-fib RVR, dyspnea on exertion, COVID-19 DISPOSITION: Hospitalist will evaluate Patient was agreeable with this plan. Past Med/Surg History Medical History (Updated 08/20/23 @ 20:38 by Trevon Prince M.D.) Anxiety Arthritis Asthma rescue inhaler weekly PRN> short of breath most of time per pt Atrial fibrillation dx 2018 > hx cardioversion at [facility], unsuccessful. Continues on Eliquis Chronic diastolic heart failure Aug 2019, patient was readmitted to [facility] with complaints of worsening SOB, edema, weight gain, and Afib RVR. She was evaluated by Dr. Toussaint. She was treated with IV diuretics with good response. Trace pedal edema on exam at [facility] 12/14/20. Coronary artery disease During Aug 2019 hospitalization, developed recurrent chest tightness with episode of nonsustained ventricular tachycardia. Cath showed thrombosis of RCA, PCI with JAILENE. Plavix x 6 months. Depression Depression with suicidal ideation Pt reports she feels safe with herself and has good support system. Dyslipidemia History of cardioversion approx 2 yrs ago History of DVT (deep vein thrombosis) ~1999> left leg > unknown etiology Hx of breast cancer left Hypertension Hypothyroidism Kidney stones passed on own Mitral valve regurgitation Mild per 05/2020 echo Prediabetes Scoliosis T2DM (type 2 diabetes mellitus) Urinary tract infection March 2020 > resolved Verbalizes suicidal thoughts Surgical History History of bilateral tubal ligation History of cataract surgery bilateral History of section x2 History of colonoscopy History of left knee replacement History of right knee joint replacement History of tooth extraction Hx of eye surgery scar tissue removed bilat Hx of lumpectomy Left lumpectomy with lymph node removal S/P bunionectomy bilateral S/P left inguinal hernia repair x2 S/P QUINCY-BSO Status post coronary artery stent placement 08/31/19 thrombus RCA, PCI with JAILENE ([facility]). Follows with Sara Nunez. Status post lumbar surgery [facility] Family History Other Heart disease No family history of adverse response to anesthesia Social History Smoking Status: Never smoker Second Hand Exposure: No; Do You Dip or Chew Tobacco: No; Hx Alcohol Use: Yes Alcohol type: wine Hx Substance Use: No Preferred Language: American Communication Ability: Effective Health Program Manager Required: No Beliefs That Will Affect Care: None marital status: / Current Living Situation: Family Current Living Situation Comment: Lives with son, DIL and their 4 kids Feels Safe at Home: Yes Assistive Devices: Denture - Upper Allergies Allergies Allergy/AdvReac Type Severity Reaction Status Date / Time adhesive Allergy Unknown HEAVIER Verified 07/18/22 23:48 SURG TAPE-REDNESS SORE SKIN cat dander Allergy Unknown ITCHY Verified 07/18/22 23:48 NOSE, ITCHY EYES,RUNNY NOSE grass pollen-perennial rye, Allergy Unknown GRASS,MOLD-ITCHY Verified 07/18/22 23:48 standar EYES RUNNY NOSE latex Allergy Unknown CONTACT Verified 07/18/22 23:48 DERMATITIS tetanus toxoid, adsorbed Allergy Unknown SWELLING Verified 07/18/22 23:48 AT SITE KOLE Inhibitors AdvReac Unknown COUGH Verified 07/18/22 23:48 Home Meds Home Medications Medication Instructions Recorded Confirmed apixaban 5 mg tablet (Eliquis) 5 mg PO BID 08/19/19 08/20/23 digoxin 125 mcg (0.125 mg) tablet 125 mcg PO 3XWK 04/19/20 08/20/23 spironolactone 25 mg tablet 25 mg PO QAM 04/19/20 08/20/23 acetaminophen 500 mg tablet 1,000 mg PO Q8 PRN Pain 11/28/20 08/20/23 atorvastatin 80 mg tablet 80 mg PO HS 12/01/21 08/20/23 metoprolol succinate 50 mg 50 mg PO AMHS 12/01/21 08/20/23 tablet,extended release 24 hr tolterodine 4 mg capsule,extended 4 mg PO DAILY 12/01/21 08/20/23 release 24 hr clopidogrel 75 mg tablet 75 mg PO QAM 07/18/22 08/20/23 isosorbide mononitrate 30 mg 30 mg PO QAM 07/18/22 08/20/23 tablet,extended release 24 hr montelukast 10 mg tablet 10 mg PO QAM 07/19/22 08/20/23 venlafaxine 75 mg capsule,extended 75 mg PO QAM 07/19/22 08/20/23 release 24 hr buspirone 15 mg tablet 15 mg PO AMHS 08/20/23 08/20/23 Previous Rx's Medication Instructions Recorded nitroglycerin 0.4 mg sublingual 0.4 mg sublingual Q5M PRN chest 09/02/19 tablet (Nitrostat) pain #25 tabs sertraline 50 mg tablet 50 mg PO QAM #30 tabs 09/09/20 Results & Data (ED) Vital Signs Vital Signs - 24 hr 08/20/23 14:42 08/20/23 15:18 08/20/23 15:18 Temperature 36.5 C Temperature Source Skin Pulse Rate 130 H Pulse Rate [Apical] 96 H Respiratory Rate 20 16 Blood Pressure 142/84 H Blood Pressure [Left Arm] 91/65 L Blood Pressure Mean 103 Blood Pressure Mean [Left Arm] 73 Pulse Oximetry 93 96 Oxygen Delivery Method Room Air Room Air Sepsis Recent Fever Within 48 Hours No Sepsis New/Unexplained Change in Mental Status No Sepsis Action Taken by Nursing No Action Required 08/20/23 15:29 08/20/23 17:13 08/20/23 17:31 Temperature Temperature Source Pulse Rate 96 H 109 H Pulse Rate [Apical] 91 H Respiratory Rate 16 Blood Pressure 91/65 L Blood Pressure [Left Arm] 107/82 Blood Pressure Mean Blood Pressure Mean [Left Arm] 90 Pulse Oximetry 99 Oxygen Delivery Method Sepsis Recent Fever Within 48 Hours Sepsis New/Unexplained Change in Mental Status Sepsis Action Taken by Nursing 08/20/23 17:36 08/20/23 19:02 08/20/23 19:09 Temperature Temperature Source Pulse Rate 109 H 102 H 95 H Pulse Rate [Apical] Respiratory Rate 20 Blood Pressure 123/90 109/69 109/69 Blood Pressure [Left Arm] Blood Pressure Mean 82 Blood Pressure Mean [Left Arm] Pulse Oximetry 96 Oxygen Delivery Method Room Air Sepsis Recent Fever Within 48 Hours Sepsis New/Unexplained Change in Mental Status Sepsis Action Taken by Nursing 08/20/23 19:30 08/20/23 20:00 Temperature Temperature Source Pulse Rate 98 H 102 H Pulse Rate [Apical] Respiratory Rate 22 19 Blood Pressure 135/84 130/86 Blood Pressure [Left Arm] Blood Pressure Mean 101 100 Blood Pressure Mean [Left Arm] Pulse Oximetry 91 95 Oxygen Delivery Method Room Air Sepsis Recent Fever Within 48 Hours Sepsis New/Unexplained Change in Mental Status Sepsis Action Taken by Nursing Laboratory Data 08/20/23 14:55 08/20/23 14:55 Lab Results 08/20/23 08/20/23 08/20/23 Range/Units 14:55 14:55 14:55 WBC 11.63 H (4.8-10.8) K/ul RBC 4.96 (4.20-5.40) M/uL Hgb 15.0 (12.0-16.0) g/dl Hct 46.1 (37.0-47.0) % MCV 92.9 (80.0-100.0) fL MCH 30.2 (25.0-34.0) pg MCHC 32.5 (32.0-36.0) g/dL RDW Std Deviation 47.0 H (36.4-46.3) fL RDW Coeff of Stephan 13.9 (11.5-14.5) % Plt Count 349 (130-400) K/uL MPV 10.4 (9.4-12.4) fL Immature Gran % (Auto) 1.0 % Neut % (Auto) 67.1 % Lymph % (Auto) 20.0 % Rush % (Auto) 9.5 % Eos % (Auto) 1.7 % Baso % (Auto) 0.7 % Neut # (Auto) 7.80 H (1.40-6.50) K/uL Lymph # (Auto) 2.33 (1.20-3.40) K/uL Rush # (Auto) 1.10 H (0.11-0.59) K/uL Eos # (Auto) 0.20 (0.00-0.50) K/uL Baso # (Auto) 0.08 (0.00-0.20) K/uL Immature Gran # (Auto) 0.12 (0.01-0.20) K/uL PT 11.4 (9.0-12.0) Seconds INR 1.0 (0.9-1.1) APTT 30.2 (21.0-31.0) Seconds PTT Ratio 1.1 Sodium 136 (136-145) mmol/L Potassium 4.2 (3.5-5.1) mmol/L Chloride 101 (98-107) mmol/L Carbon Dioxide 25 (21-32) mmol/L Anion Gap 10 (3-11) BUN 21 (6-23) mg/dl Creatinine 1.32 H (0.6-1.2) mg/dl Est Cr Clr Drug Dosing 34.5 ml/min Est GFR ( Amer) 45.0 ml/min Est GFR (Non-Af Amer) 38.8 ml/min BUN/Creatinine Ratio 15.9 (10-20) Glucose 123 H (70-99(Fasting)) mg/dl Calcium 9.4 (8.6-10.3) mg/dl Magnesium 2.1 (1.7-2.4) mg/dl Total Bilirubin 0.9 (0.2-1.0) mg/dl AST 18 (13-39) U/L ALT 10 (7-52) U/L Alkaline Phosphatase 89 (34-104) U/L Troponin I High Sens 6.6 (0-14) pg/ml Total Protein 7.7 (6.0-8.3) gm/dl Albumin 4.3 (3.4-5.0) gm/dl Globulin 3.4 (2.5-4.0) gm/dl Albumin/Globulin Ratio 1.3 (0.9-2) TSH 4.916 H (0.300-4.500) uIu/ml Free T4 0.92 (0.61-1.60) ng/dl Digoxin (0.8-2.0) ng/ml SARS-CoV-2, RNA, NAAT (NEGATIVE) 08/20/23 08/20/23 Range/Units 14:55 15:03 WBC (4.8-10.8) K/ul RBC (4.20-5.40) M/uL Hgb (12.0-16.0) g/dl Hct (37.0-47.0) % MCV (80.0-100.0) fL MCH (25.0-34.0) pg MCHC (32.0-36.0) g/dL RDW Std Deviation (36.4-46.3) fL RDW Coeff of Stephan (11.5-14.5) % Plt Count (130-400) K/uL MPV (9.4-12.4) fL Immature Gran % (Auto) % Neut % (Auto) % Lymph % (Auto) % Rush % (Auto) % Eos % (Auto) % Baso % (Auto) % Neut # (Auto) (1.40-6.50) K/uL Lymph # (Auto) (1.20-3.40) K/uL Rush # (Auto) (0.11-0.59) K/uL Eos # (Auto) (0.00-0.50) K/uL Baso # (Auto) (0.00-0.20) K/uL Immature Gran # (Auto) (0.01-0.20) K/uL PT (9.0-12.0) Seconds INR (0.9-1.1) APTT (21.0-31.0) Seconds PTT Ratio Sodium (136-145) mmol/L Potassium (3.5-5.1) mmol/L Chloride (98-107) mmol/L Carbon Dioxide (21-32) mmol/L Anion Gap (3-11) BUN (6-23) mg/dl Creatinine (0.6-1.2) mg/dl Est Cr Clr Drug Dosing ml/min Est GFR ( Amer) ml/min Est GFR (Non-Af Amer) ml/min BUN/Creatinine Ratio (10-20) Glucose (70-99(Fasting)) mg/dl Calcium (8.6-10.3) mg/dl Magnesium (1.7-2.4) mg/dl Total Bilirubin (0.2-1.0) mg/dl AST (13-39) U/L ALT (7-52) U/L Alkaline Phosphatase (34-104) U/L Troponin I High Sens (0-14) pg/ml Total Protein (6.0-8.3) gm/dl Albumin (3.4-5.0) gm/dl Globulin (2.5-4.0) gm/dl Albumin/Globulin Ratio (0.9-2) TSH (0.300-4.500) uIu/ml Free T4 (0.61-1.60) ng/dl Digoxin < 0.3 L (0.8-2.0) ng/ml SARS-CoV-2, RNA, NAAT POSITIVE A* (NEGATIVE) Administered Medications Discontinued Medications Metoprolol Tartrate (Metoprolol Tartrate 1 Mg/Ml Vial) 5 mg IV NOW STA Stop: 08/20/23 15:04 Last Admin: 08/20/23 15:29 Dose: Not Given Documented By: ZUNILDA Metoprolol Tartrate (Metoprolol Tartrate 1 Mg/Ml Vial) 5 mg IV NOW STA Stop: 08/20/23 17:33 Last Admin: 08/20/23 17:36 Dose: 5 mg Documented By: ZUNILDA Imaging Data Radiologist's Impression: Chest X-Ray 08/20/23 14:45 SINGLE VIEW CHEST CLINICAL HISTORY: Dyspnea FINDINGS: An AP, portable, upright chest radiograph is compared to study dated 12/01/2021. The heart is enlarged noting atherosclerotic calcification of the thoracic aorta. The pulmonary vasculature is noncongested. Chronic interstitial thickening is similar to previous. There is mild bibasilar scarring/atelectasis. The lungs and pleural spaces are otherwise clear. No pneumothorax is seen. The skeletal structures are osteopenic. The bony thorax is grossly intact. IMPRESSION: Cardiomegaly with no active disease in the chest. ACT 112: Negative or not required by law. Electronically signed by: Henrry Vazquez M.D. 08/20/2023 3:54 PM Discharge Plan Visit Data Chief Complaint: Arrhythmia/Palpitations Stated Complaint: [facility]RE[facility] ED Provider: Trevon Prince Discharge Problem: Atrial fibrillation with rapid ventricular response, Chronic diastolic heart failure, On apixaban therapy, COVID-19 Patient Disposition: Admitted As Inpatient Discharge Instructions Interventions: ED Discharge Assessment Last Done: 08/20/23 20:19 Forms Stand Alone Forms: [employer] Prescriptions Prescriptions: No Action Eliquis 5 mg tablet 5 mg PO BID digoxin 125 mcg (0.125 mg) tablet 125 mcg PO 3XWK Rx Instructions: Take Saturday, Saturday, Saturday spironolactone 25 mg tablet 25 mg PO QAM acetaminophen 500 mg tablet 1,000 mg PO Q8 PRN (Reason: Pain) nitroglycerin [Nitrostat] 0.4 mg tablet, sublingual 0.4 mg Sublingual Q5M PRN (Reason: chest pain) Qty: 25 1RF Rx Instructions: As needed for chest pain or pressure. May repeat in 5 min. Call 911 if no relief. sertraline 50 mg Tablet 50 mg PO QAM Qty: 30 0RF metoprolol succinate 50 mg tablet extended release 24 hr 50 mg PO AMHS atorvastatin 80 mg tablet 80 mg PO HS tolterodine 4 mg capsule,extended release 24hr 4 mg PO DAILY clopidogrel 75 mg tablet 75 mg PO QAM isosorbide mononitrate 30 mg tablet extended release 24 hr 30 mg PO QAM venlafaxine 75 mg capsule,extended release 24hr 75 mg PO QAM montelukast 10 mg tablet 10 mg PO QAM buspirone 15 mg tablet 15 mg PO AMHS Referrals Referrals: PCP,NO [Physician] -
[2023-08-20] MEDS ORDERED: METOPROLOL TARTRATE 1 MG/ML VIAL IV STA ×2 (15:03→17:32)
[2023-08-20 15:21] LABS: Basophils # (auto) 0.08 K/uL (0.00-0.20); Basophils % (auto) 0.7 %; Eosinophils % (auto) 1.7 %; Hematocrit (blood only) 46.1 % (37.0-47.0); Immature Granulocytes # (auto) 0.12 K/uL (0.01-0.20); Lymphocytes # (auto) 2.33 K/uL (1.20-3.40); Mean Corpuscular Hemoglobin 30.2 pg (25.0-34.0); Mean Corpuscular Hgb Conc 32.5 g/dL (32.0-36.0); Mean Corpuscular Volume 92.9 fL (80.0-100.0); Mean Platelet Volume 10.4 fL (9.4-12.4); Monocytes % (auto) 9.5 %; Neutrophils % (auto) 67.1 %; Platelet Count 349 K/uL (130-400); RDW Coefficient of Variation 13.9 % (11.5-14.5); Red Blood Count 4.96 M/uL (4.20-5.40); White Blood Count 11.63 K/ul (4.8-10.8)
[2023-08-20 15:48] LABS: Partial Thromboplastin Ratio 1.1; Partial Thromboplastin Time 30.2 Seconds (21.0-31.0); Prothrombin Time 11.4 Seconds (9.0-12.0)
[2023-08-20 15:52] LABS: Albumin Globulin Ratio 1.3 (0.9-2); Albumin Level 4.3 gm/dl (3.4-5.0); BUN Creatinine Ratio 15.9 (10-20); Bilirubin,Total 0.9 mg/dl (0.2-1.0); Calcium 9.4 mg/dl (8.6-10.3); Creatinine Clr Calc Pharmacy 34.5 ml/min; Est GFR (Non-African American) 38.8 ml/min; Globulin 3.4 gm/dl (2.5-4.0); Magnesium 2.1 mg/dl (1.7-2.4); Potassium 4.2 mmol/L (3.5-5.1); Total Protein 7.7 gm/dl (6.0-8.3)
--- NOTE | 2023-08-20 15:55 | XRay Report ---
SINGLE VIEW CHEST CLINICAL HISTORY: Dyspnea FINDINGS: An AP, portable, upright chest radiograph is compared to study dated 12/01/2021. The heart i s enlarged noting atherosclerotic calcification of the thoracic aorta. The pulmonary vasculature is n oncongested. Chronic interstitial thickening is similar to previous. There is mild bibasilar scarring /atelectasis. The lungs and pleural spaces are otherwise clear. No pneumothorax is seen. The skeletal structures are osteopenic. The bony thorax is grossly intact. IMPRESSION: Cardiomegaly with no active disease in the chest. ACT 112: Negative or not required by law. Electronically signed by: Henrry Vazquez M.D. 08/20/2023 3:54 PM
[2023-08-20 15:57] LABS: Troponin I High Sensitivity 6.6 pg/ml (0-14)
[2023-08-20 16:04] LABS: Thyroid Stimulating Hormone 4.916 uIu/ml (0.300-4.500)
[2023-08-20 16:36] LABS: T4 Free Thyroxine 0.92 ng/dl (0.61-1.60)
--- NOTE | 2023-08-20 17:58 | History & Physical Report ---
Date of Service August 20, 2023 Assessment & Plan (1) Permanent atrial fibrillation with rapid ventricular response: (2) Chronic diastolic heart failure: (3) Coronary artery disease: (4) T2DM (type 2 diabetes mellitus): Plan This is a 78-year-old female who has significant past medical history of CAD status post drug-eluting stent in 2019 in the right coronary artery and JAILENE in the LAD in 2020, chronic atrial fibrillation anticoagulant on Eliquis, HTN, HLD, chronic diastolic heart failure and depression with anxiety who presents to ER secondary to shortness of breath on referral from PCP. 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, left atrium severely enlarged, left ventricular diastolic function abnormal, mild aortic valve sclerosis, mild aortic valve regurg, mitral valve annulus moderately dilated, moderate MR, mild TR Plan is for patient to undergo BORIS as outpatient for further evaluation, blood cultures were done on 07/26 and were negative SARS-CoV-2 No COVID directed therapies indicated given symptom duration and no oxygen requirement She did complete outpatient course of Paxlovid CAD hx of JAILENE to RCA 2019 and LAD in 2020 Chronic Diastolic CHF HTN HLD on plavix, statin, imdur, metoprolol euvolemic to dry on exam 500ml IVF ordered, will monitor closely daily weights strict I and O T2DM most recent a1c 05/2023 6.4 accuchecks ac/hs, diet controlled as outpatient very liberal novolog correction scale only CKD-3 baseline cr 1.0-1.2 chronic, stable appears dry on exam, will order 500ml only DVT ppx: Eliquis DNR/DNI PCP: Grace Dispo: admit to PCU Pt was seen and examined in collaboration with Dr. Shook, please see addendum History of Present Illness Chief Complaint: elevated HR and sob x 1 day. Primary Care Provider: Nayeli Edwards, DO This is a 78-year-old female who has significant past medical history of CAD status post drug-eluting stent in 2019 in the right coronary artery and JAILENE in the LAD in 2020, chronic atrial fibrillation anticoagulant on Eliquis, HTN, HLD, chronic diastolic heart failure and depression with anxiety who presents to ER secondary to shortness of breath on referral from PCP. She complained of increased SOB today and elevated HR. She was dx 2 weeks ago with covid. She continues to have cough and MO. Cough is productive but clear. Sx started on as rhinorrhea and now has sinus congestion, sore throat and post nasal drip. She does have chronic dizziness with quick movements which is normal for her in related to the afib. She also has chronic SOB in regards to afib. She feels SOB worsened last 2-3 days and today discovered some substernal, nonradiating chest pressure. She denies palpitations. She denies any fever, chills, sweats, lightheaded, abd pain, dysuria or increased freq with urination. She did complete a course of paxlovid which caused diarrhea and significant nausea. Her last dose was 2 days ago. She does have chronic urinary incontinence. In ED patient was noted to be in A-fib with RVR. She received 2 doses of 5 mg IV Lopressor with improvement in heart rates down to 90 to low 100s. Of significance patient is followed closely with [facility] cardiology. She recently had abnormality noted on echocardiogram in regards to a 0.9 cm spherical mass noted at the basal portion of the septal tricuspid valve. Plan was for her to undergo BORIS but this has been postponed due to COVID. She admits to being compliant with medications and has not missed dosages. Allergies Allergy/AdvReac Type Severity Reaction Status Date / Time adhesive Allergy Unknown HEAVIER Verified 07/18/22 23:48 SURG TAPE-REDNESS SORE SKIN cat dander Allergy Unknown ITCHY Verified 07/18/22 23:48 NOSE, ITCHY EYES,RUNNY NOSE grass pollen-perennial rye, Allergy Unknown GRASS,MOLD-ITCHY Verified 07/18/22 23:48 standar EYES RUNNY NOSE latex Allergy Unknown CONTACT Verified 07/18/22 23:48 DERMATITIS tetanus toxoid, adsorbed Allergy Unknown SWELLING Verified 07/18/22 23:48 AT SITE KOLE Inhibitors AdvReac Unknown COUGH Verified 07/18/22 23:48 Home Medications Medication Instructions Recorded Confirmed Type apixaban 5 mg tablet (Eliquis) 5 mg PO BID 08/19/19 08/20/23 History nitroglycerin 0.4 mg sublingual 0.4 mg sublingual Q5M PRN chest 09/02/19 08/20/23 Rx tablet (Nitrostat) pain #25 tabs digoxin 125 mcg (0.125 mg) tablet 125 mcg PO 3XWK 04/19/20 08/20/23 History spironolactone 25 mg tablet 25 mg PO QAM 04/19/20 08/20/23 History sertraline 50 mg tablet 50 mg PO QAM #30 tabs 09/09/20 08/20/23 Rx acetaminophen 500 mg tablet 1,000 mg PO Q8 PRN Pain 11/28/20 08/20/23 History atorvastatin 80 mg tablet 80 mg PO HS 12/01/21 08/20/23 History metoprolol succinate 50 mg 50 mg PO AMHS 12/01/21 08/20/23 History tablet,extended release 24 hr tolterodine 4 mg capsule,extended 4 mg PO DAILY 12/01/21 08/20/23 History release 24 hr clopidogrel 75 mg tablet 75 mg PO QAM 07/18/22 08/20/23 History isosorbide mononitrate 30 mg 30 mg PO QAM 07/18/22 08/20/23 History tablet,extended release 24 hr montelukast 10 mg tablet 10 mg PO QAM 07/19/22 08/20/23 History venlafaxine 75 mg capsule,extended 75 mg PO QAM 07/19/22 08/20/23 History release 24 hr buspirone 15 mg tablet 15 mg PO AMHS 08/20/23 08/20/23 History Past Med/Surg History Medical History (Updated 08/20/23 @ 18:47 by Lenore Park PA-C) Anxiety Arthritis Asthma rescue inhaler weekly PRN> short of breath most of time per pt Atrial fibrillation dx 2018 > hx cardioversion at [facility], unsuccessful. Continues on Eliquis Chronic diastolic heart failure Aug 2019, patient was readmitted to [facility] with complaints of worsening SOB, edema, weight gain, and Afib RVR. She was evaluated by Dr. Toussaint. She was treated with IV diuretics with good response. Trace pedal edema on exam at [facility] 12/14/20. Coronary artery disease During Aug 2019 hospitalization, developed recurrent chest tightness with episode of nonsustained ventricular tachycardia. Cath showed thrombosis of RCA, PCI with JAILENE. Plavix x 6 months. Depression Depression with suicidal ideation Pt reports she feels safe with herself and has good support system. Dyslipidemia History of cardioversion approx 2 yrs ago History of DVT (deep vein thrombosis) ~1999> left leg > unknown etiology Hx of breast cancer left Hypertension Hypothyroidism Kidney stones passed on own Mitral valve regurgitation Mild per 05/2020 echo Prediabetes Scoliosis T2DM (type 2 diabetes mellitus) Urinary tract infection March 2020 > resolved Verbalizes suicidal thoughts Surgical History History of bilateral tubal ligation History of cataract surgery bilateral History of section x2 History of colonoscopy History of left knee replacement History of right knee joint replacement History of tooth extraction Hx of eye surgery scar tissue removed bilat Hx of lumpectomy Left lumpectomy with lymph node removal S/P bunionectomy bilateral S/P left inguinal hernia repair x2 S/P QUINCY-BSO Status post coronary artery stent placement 08/31/19 thrombus RCA, PCI with JAILENE ([facility]). Follows with Sara Nunez. 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 Shook addendum for physical exam findings. Results & Data Results & Data Vital Signs (Past 12 Hours) Vital Signs Temp Pulse Pulse Resp BP BP Pulse Ox 08/20/23 17:36 109 H 123/90 08/20/23 17:31 109 H 08/20/23 17:13 91 H 16 107/82 99 08/20/23 15:29 96 H 91/65 L 08/20/23 15:18 96 H 16 91/65 L 96 08/20/23 15:18 08/20/23 14:42 36.5 C 130 H 20 142/84 H 93 O2 Del Method 08/20/23 17:36 08/20/23 17:31 08/20/23 17:13 08/20/23 15:29 08/20/23 15:18 08/20/23 15:18 Room Air 08/20/23 14:42 Room Air Diagnostic Findings Chest X-Ray 08/20/23 14:45 SINGLE VIEW CHEST CLINICAL HISTORY: Dyspnea FINDINGS: An AP, portable, upright chest radiograph is compared to study dated 12/01/2021. The heart is enlarged noting atherosclerotic calcification of the thoracic aorta. The pulmonary vasculature is noncongested. Chronic interstitial thickening is similar to previous. There is mild bibasilar scarring/atelectasis. The lungs and pleural spaces are otherwise clear. No pneumothorax is seen. The skeletal structures are osteopenic. The bony thorax is grossly intact. IMPRESSION: Cardiomegaly with no active disease in the chest. ACT 112: Negative or not required by law. Electronically signed by: Henrry Vazquez M.D. 08/20/2023 3:54 PM Medications Administered Medication List Discontinued Medications Metoprolol Tartrate (Metoprolol Tartrate 1 Mg/Ml Vial) 5 mg IV NOW STA Stop: 08/20/23 15:04 Last Admin: 08/20/23 15:29 Dose: Not Given Documented By: ZUNILDA Metoprolol Tartrate (Metoprolol Tartrate 1 Mg/Ml Vial) 5 mg IV NOW STA Stop: 08/20/23 17:33 Last Admin: 08/20/23 17:36 Dose: 5 mg Documented By: ZUNILDA ECG Additional Comments: atrial fib, 111 bpm, interpreted by myself, no st t wave change, qtc 440ms Code Status & VTE Plan Code Status FULL CODE Supervising Physician Co-Signing Physician Notes Patient seen and examined Reports respiratory symptoms (post nasal drip, congestion, cough) in the past 2 weeks. Was found to have COVID and completed paxlovid Reported diarrhea and vomiting with paxlovid. Had worsening SOB and chest pressure today necessitation presentation On exam, General: Nno acute distress Eyes: PERRL, conjunctivae normal, not pale, anicteric sclerae, EOM intact bilaterally ENMT: External ear and nose normal, Dry oral mucosa Respiratory: Normal respiratory effort, no respiratory distress, lungs clear to auscultation, no crackles and no wheezes Cardiovascular: Irregularly irregular S1 S2 Gastrointestinal (Abdomen): Abdomen is not distended, soft, non-tender to palpation, no guarding, no palpable hepatosplenomegaly, normal bowel sounds Musculoskeletal: No pedal edema Neurologic: Alert and oriented x 3, No focal weakness, sensation grossly intact Psychiatric: Euthymic affect Afib w/RVR COVID 19 infection Got 2 doses of IV lopressor in ER HR currently 90-100 Resume home metoprolol and digoxin Continue home eliquis Cards consult Recent TTE outpatient from early this month noted 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 Blood culture afterwards was negative. Cardiology planning BORIS Currently on room air No need for COVID specific therapies Continue supportive care
[2023-08-20] MEDS ORDERED: ALUMINUM/MAGNESIUM SUSP 30 ML UDC PO PRN (20:40)
[2023-08-20] MEDS ORDERED: GLUCOSE 40% GEL 15 GM TUBE PO PRN (20:40)
[2023-08-20] MEDS ORDERED: MAGNESIUM HYDROXIDE SUSP 30 ML UDC PO PRN (20:40)
[2023-08-20] MEDS ORDERED: SODIUM CHLORIDE 0.9% 500 ML IV SCH (20:40)
[2023-08-20] MEDS ORDERED: GLUCOSE 10 TAB/TUBE PO PRN (20:40)
[2023-08-20] MEDS ORDERED: ACETAMINOPHEN 325 MG TAB PO PRN (20:40)
[2023-08-20] MEDS ORDERED: ONDANSETRON INJ 2 MG/ML 2 ML VIAL IV PRN (20:40)
[2023-08-20] MEDS ORDERED: DEXTROSE 50% 50 ML SYRINGE IV PRN (20:40)
[2023-08-20] MEDS ORDERED: GLUCAGON FOR INJ 1 MG VIAL SQ PRN (20:40)
[2023-08-20] MEDS ORDERED: POLYETHYLENE (MIRALAX) 17 GM PACK PO PRN (20:40)
[2023-08-20] MEDS ORDERED: CARBOHYDRATES FOR HYPOGLYCEMIA PO PRN (20:40)
[2023-08-20] MEDS: APIXABAN 5 MG TABLET PO SCH (21:38)
[2023-08-20] MEDS: ATORVASTATIN 40 MG TAB PO SCH (21:39)
[2023-08-20] MEDS: busPIRone 15 MG TAB PO SCH (21:40)
[2023-08-20] MEDS: INSULIN ASPART PER UNIT CHARGE SC SCH (21:41)
[2023-08-20] MEDS: METOPROLOL SUCC 50MG EXT REL TAB PO SCH (22:09)
[2023-08-20] MEDS ORDERED: BENZONATATE 100 MG CAPSULE PO PRN (23:24)
[2023-08-21 01:54] LABS: Appearance Urine Clear (Clear); Bilirubin Urine Negative (Negative); Blood Urine Negative (Negative); Color Urine Yellow; Glucose Urine UA Negative (Negative); Ketones Urine Negative (Negative); Leukocyte Esterase Urine Negative (Negative); Nitrite Urine Negative (Negative); Protein Urine Negative (Negative); Specific Gravity Urine 1.012 (1.000-1.030); Urobilinogen Urine Negative (Negative); pH Urine 6.5 (4.5-7.5)
[2023-08-21 07:08] LABS: Basophils # (auto) 0.05 K/uL (0.00-0.20); Basophils % (auto) 0.7 %; Eosinophils # (auto) 0.23 K/uL (0.00-0.50); Eosinophils % (auto) 3.3 %; Hematocrit (blood only) 39.5 % (37.0-47.0); Hemoglobin 13.5 g/dl (12.0-16.0); Immature Granulocytes # (auto) 0.04 K/uL (0.01-0.20); Immature Granulocytes % (auto) 0.6 %; Lymphocytes # (auto) 1.81 K/uL (1.20-3.40); Lymphocytes % (auto) 26.3 %; Mean Corpuscular Hemoglobin 30.5 pg (25.0-34.0); Mean Corpuscular Hgb Conc 34.2 g/dL (32.0-36.0); Mean Corpuscular Volume 89.4 fL (80.0-100.0); Mean Platelet Volume 10.3 fL (9.4-12.4); Monocytes # (auto) 0.74 K/uL (0.11-0.59); Monocytes % (auto) 10.8 %; Neutrophils % (auto) 58.3 %; Platelet Count 244 K/uL (130-400); RDW Coefficient of Variation 14.1 % (11.5-14.5); RDW Standard Deviation 45.7 fL (36.4-46.3); Red Blood Count 4.42 M/uL (4.20-5.40); White Blood Count 6.87 K/ul (4.8-10.8)
--- NOTE | 2023-08-21 07:33 | Cardiology Consultation ---
Date of Consultation August 21, 2023 Assessment & Plan (1) Permanent atrial fibrillation with rapid ventricular response: (2) Coronary artery disease: (3) Tricuspid valve disorder: (4) COVID-19: (5) Chronic heart failure with preserved ejection fraction (HFpEF): IMPRESSION: 78-year-old female with recent history of COVID-19 infection presented to [facility] emergency department yesterday due to symptoms of shortness of breath and chest pressure accompanied by cough and fever/chills. Patient has known permanent atrial fibrillation, on admission heart rates were tachycardic to the 130s and patient was given 2 doses of IV Lopressor with improvement in rates Recent outpatient echocardiogram showed a tricuspid valve mass--she was to have a BORIS done however this was deferred due to recent COVID-19 infection. PLAN: Permanent atrial fibrillation: Heart rates improved with an average rate in the mid 90s Continue digoxin 0.125 mg Saturday, and metoprolol succinate 50 mg twice daily, room to titrate beta-luis armando if necessary Anticoagulated with Eliquis 5 mg twice daily for stroke prevention, continue. Coronary artery disease: History of JAILENE placement to the RCA in 2019 and JAILENE to the LAD most recently December 2020. High-sensitivity troponin negative x1. EKG without acute ST segment changes. Continue Plavix 75 mg daily. Continue Imdur 30 mg daily Tricuspid valve mass: Outpatient echocardiogram revealed 0.9 cm spherical mass noted at the basal portion of the septal tricuspid valve, 07/25/2023 Repeat resting echo to reassess tricuspid valve--future considerations for BORIS. Blood cultures ordered. COVID-19: Recent COVID-19 infection, treated with Paxil at. Last dose 08/18/2023. Not requiring supplemental oxygen therapy Supportive treatment per primary team Chronic diastolic CHF: Patient examining euvolemic. Wheezing heard on auscultation but no crackles or rhonchi. She does have a cough. Not normally maintained on loop diuretic therapy. We will hold off on Lasix at this time Case discussed with Dr. Walters. Further recommendations pending echocardiogram results. Supervising Physician Co-Signing Physician Notes 78-year-old female presented to the ER from her primary care physician's office due to shortness of breath, COVID-19 infection, and elevated heart rate. Admitted to the progressive care unit. Heart rate improved overnight. Denies palpitations, lightheadedness, or dizziness. Continues to report cough without sputum production and ongoing shortness of breath with ambulation. No chest discomfort. Repeat echocardiogram demonstrates preserved LV systolic function with stable, spherical tricuspid valve mass. PE: Gen: NAD, AAO x3. Heart: Irregular rhythm, normal S1-S2. No murmur. Lungs: Scattered rhonchi with expiratory wheeze. Extremities: No edema. Abdomen: Soft, nontender, normal bowel sounds. A/P: 78-year-old female admitted with respiratory symptoms including shortness of breath and cough in the setting of elevated heart rate and chronic atrial fibrillation. Heart rate improved currently. Repeat echocardiogram with evidence of tricuspid valve mass unchanged when compared to recent study. She will require transesophageal echocardiogram, however, will defer at this time due to COVID-19 infection. Likely proceed with testing in the next 2 to 4 weeks when she is recovered. Continue rate control strategy with metoprolol, and digoxin. Anticoagulation with Eliquis. No further cardiac testing or intervention at this time. History of Present Illness Reason for Consultation: Atrial fibrillation with RVR Requesting Physician: Sohail thrasher Attending Physician: Trang Shook MD History of Present Illness 78-year-old female presented to [facility] emergency department by the patient's of her PCP yesterday due to progressive shortness of breath, chest pressure, and chills. Patient was diagnosed with COVID 2 weeks ago (took Paxlovid-- last dose on 08/18, did not tolerate this medication well-- noting GI upset). EKG in the PCP office showed atrial fibrillation with RVR with rates in the low 100s to 130s--in the ED she received 2 doses of 5 mg of IV Lopressor with improvements in rates. Does admit to missing a few doses of her Eliquis last week or so. Of note, recently patient had an echocardiogram done showing a 0.9 cm spherical mass noted at the basal portion of the septal tricuspid valve. Plan was for her to undergo BORIS but this has been postponed due to COVID. Outpatient blood cultures were negative. Upon entrance into the room patient resting comfortably in bed. No acute distress. Continues to have a moist hacking cough, nonproductive. Mild shortness of breath with exertion. No return of chest pressures. No orthopnea or PND. No lower extremity edema. Denies lightheadedness or dizziness. Overall feels fatigued. Telemetry: A-fib with PVCs in the 90s Primary outpatient supervisor safety deposit: Dr. Green. Past medical history: 0.9 cm spherical mass noted at the basal portion of the septal tricuspid valve.F Allergies Allergy/AdvReac Type Severity Reaction Status Date / Time adhesive Allergy Unknown HEAVIER Verified 07/18/22 23:48 SURG TAPE-REDNESS SORE SKIN cat dander Allergy Unknown ITCHY Verified 07/18/22 23:48 NOSE, ITCHY EYES,RUNNY NOSE grass pollen-perennial rye, Allergy Unknown GRASS,MOLD-ITCHY Verified 07/18/22 23:48 standar EYES RUNNY NOSE latex Allergy Unknown CONTACT Verified 07/18/22 23:48 DERMATITIS tetanus toxoid, adsorbed Allergy Unknown SWELLING Verified 07/18/22 23:48 AT SITE KOLE Inhibitors AdvReac Unknown COUGH Verified 07/18/22 23:48 Home Medications Medication Instructions Recorded Confirmed Type apixaban 5 mg tablet (Eliquis) 5 mg PO BID 08/19/19 08/20/23 History nitroglycerin 0.4 mg sublingual 0.4 mg sublingual Q5M PRN chest 09/02/19 08/20/23 Rx tablet (Nitrostat) pain #25 tabs digoxin 125 mcg (0.125 mg) tablet 125 mcg PO 3XWK 04/19/20 08/20/23 History spironolactone 25 mg tablet 25 mg PO QAM 04/19/20 08/20/23 History sertraline 50 mg tablet 50 mg PO QAM #30 tabs 09/09/20 08/20/23 Rx acetaminophen 500 mg tablet 1,000 mg PO Q8 PRN Pain 11/28/20 08/20/23 History atorvastatin 80 mg tablet 80 mg PO HS 12/01/21 08/20/23 History metoprolol succinate 50 mg 50 mg PO AMHS 12/01/21 08/20/23 History tablet,extended release 24 hr tolterodine 4 mg capsule,extended 4 mg PO DAILY 12/01/21 08/20/23 History release 24 hr clopidogrel 75 mg tablet 75 mg PO QAM 07/18/22 08/20/23 History isosorbide mononitrate 30 mg 30 mg PO QAM 07/18/22 08/20/23 History tablet,extended release 24 hr montelukast 10 mg tablet 10 mg PO QAM 07/19/22 08/20/23 History venlafaxine 75 mg capsule,extended 75 mg PO QAM 07/19/22 08/20/23 History release 24 hr buspirone 15 mg tablet 15 mg PO AMHS 08/20/23 08/20/23 History Patient History Medical History (Updated 08/21/23 @ 09:13 by ROBYN Greene) Anxiety Arthritis Asthma rescue inhaler weekly PRN> short of breath most of time per pt Atrial fibrillation dx 2018 > hx cardioversion at [facility], unsuccessful. Continues on Eliquis Chronic diastolic heart failure Aug 2019, patient was readmitted to [facility] with complaints of worsening SOB, edema, weight gain, and Afib RVR. She was evaluated by Dr. Toussaint. She was t reated with IV diuretics with good response. Trace pedal edema on exam at [facility] 12/14/20. Coronary artery disease During Aug 2019 hospitalization, developed recurrent chest tightness with episode of nonsustained ventricular tachycardia. Cath showed thrombosis of RCA, PCI with JAILENE. Plavix x 6 months. Depression Depression with suicidal ideation Pt reports she feels safe with herself and has good support system. Dyslipidemia History of cardioversion approx 2 yrs ago History of DVT (deep vein thrombosis) ~1999> left leg > unknown etiology Hx of breast cancer left Hypertension Hypothyroidism Kidney stones passed on own Mitral valve regurgitation Mild per 05/2020 echo Prediabetes Scoliosis T2DM (type 2 diabetes mellitus) Urinary tract infection March 2020 > resolved Verbalizes suicidal thoughts Surgical History History of bilateral tubal ligation History of cataract surgery bilateral History of section x2 History of colonoscopy History of left knee replacement History of right knee joint replacement History of tooth extraction Hx of eye surgery scar tissue removed bilat Hx of lumpectomy Left lumpectomy with lymph node removal S/P bunionectomy bilateral S/P left inguinal hernia repair x2 S/P QUINCY-BSO Status post coronary artery stent placement 08/31/19 thrombus RCA, PCI with JAILENE ([facility]). Follows with Sara Nunez. Status post lumbar surgery [facility] Family History Other Heart disease No family history of adverse response to anesthesia Social History Smoking Status: Never smoker Second Hand Exposure: Yes (parents and ); Do You Dip or Chew Tobacco: No; Hx Alcohol Use: Yes Alcohol type: wine Hx Substance Use: Yes Preferred Language: Montserratian Communication Ability: Effective Lead Teller Required: No Beliefs That Will Affect Care: None marital status: / Current Living Situation: Family Current Living Situation Comment: Lives at home with son Other Information That Helps Us Care for You: No Feels Safe at Home: Yes Safety Concerns: Feels Safe At This Time Assistive Devices: Cane and Walker Review of Systems Review of Systems: All systems reviewed & are unremarkable except as noted in HPI & below Physical Exam Constitutional: WD/WN, vitals as above no acute distress Eyes: PERRL, conjunctivae normal, anicteric sclerae Neck: normal visual inspection and trachea midline Respiratory: normal respiratory effort Auscultation: + rales and + wheezes; no rhonchi Cardiovascular: Rate/Rhythm: regular rate, + tachycardic and + irregularly irregular Heart Sounds: normal S1, normal S2 and + murmur (+systolic murmur) Vessels: no JVD Extremities: no edema Gastrointestinal (Abdomen): normal bowel sounds, soft, nontender, no hepatosplenomegaly Skin: no rashes, warm and dry Psychiatric: A+Ox3, euthymic affect Results & Data Vital Signs (Past 12 Hours) Vital Signs Temp Pulse Pulse Resp BP BP Pulse Ox 08/21/23 04:25 36.6 C 84 17 110/74 96 08/20/23 22:01 93 H 08/20/23 20:53 100 H 08/20/23 23:08 36.7 C 92 H 17 111/71 96 08/20/23 22:50 91 H 95/75 L 08/20/23 21:00 08/20/23 20:40 08/20/23 21:48 96/58 L 08/20/23 20:41 36.9 C 91 H 18 111/70 98 08/20/23 20:00 102 H 19 130/86 95 08/20/23 19:30 98 H 22 135/84 91 O2 Del Method O2 Del Method 08/21/23 04:25 Room Air 08/20/23 22:01 08/20/23 20:53 08/20/23 23:08 Room Air 08/20/23 22:50 08/20/23 21:00 Room Air 08/20/23 20:40 Room Air 08/20/23 21:48 08/20/23 20:41 Room Air 08/20/23 20:00 Room Air 08/20/23 19:30 Laboratory Results Cardiac Enzymes 08/20/23 08/21/23 Range/Units 14:55 06:42 AST 18 13 (13-39) U/L Troponin I High Sens 6.6 (0-14) pg/ml Coagulation 08/20/23 Range/Units 14:55 PT 11.4 (9.0-12.0) Seconds APTT 30.2 (21.0-31.0) Seconds CBC 08/20/23 08/21/23 Range/Units 14:55 06:42 WBC 11.63 H 6.87 (4.8-10.8) K/ul RBC 4.96 4.42 (4.20-5.40) M/uL Hgb 15.0 13.5 (12.0-16.0) g/dl Hct 46.1 39.5 (37.0-47.0) % Plt Count 349 244 (130-400) K/uL Neut # (Auto) 7.80 H 4.00 (1.40-6.50) K/uL Lymph # (Auto) 2.33 1.81 (1.20-3.40) K/uL [place] # (Auto) 1.10 H 0.74 H (0.11-0.59) K/uL Eos # (Auto) 0.20 0.23 (0.00-0.50) K/uL Baso # (Auto) 0.08 0.05 (0.00-0.20) K/uL Comprehensive Metabolic Panel 08/20/23 08/21/23 Range/Units 14:55 06:42 Sodium 136 138 (136-145) mmol/L Potassium 4.2 4.3 (3.5-5.1) mmol/L Chloride 101 107 (98-107) mmol/L Carbon Dioxide 25 24 (21-32) mmol/L BUN 21 20 (6-23) mg/dl Creatinine 1.32 H 1.09 (0.6-1.2) mg/dl Glucose 123 H 91 (70-99(Fasting)) mg/dl Calcium 9.4 8.8 (8.6-10.3) mg/dl AST 18 13 (13-39) U/L ALT 10 5 L (7-52) U/L Alkaline Phosphatase 89 70 (34-104) U/L Total Protein 7.7 6.4 (6.0-8.3) gm/dl Albumin 4.3 3.7 (3.4-5.0) gm/dl Intake and Output 08/20/23 08/21/23 08/21/23 22:59 06:59 14:59 Intake Total 200 / 700 500 / 700 Output Total 0 / 0 Balance 200 / 700 500 / 700 Intake: IV 500 / 500 Sodium Chloride 0.9% 500 ml @ 500 / 500 125 mls/hr IV .Q4H DAO Rx#: [id number] Oral 200 / 200 Output: Urine 0 / 0 Other: # Unmeasured Voids 1 Weight 77.2 kg 79.3 kg Weight Measurement Method Built in [facility] Built in [facility] Diagnostic Findings Echo 07/25/2023 The examination is adequate to evaluate the referral indication. There was atrial fibrillation during the examination. The left ventricular cavity size is normal. The LV wall thickness is moderately increased (concentric). The left ventricular wall motion is normal. The qualitative LV ejection fraction is 55-59% (normal). The left ventricular diastolic function is abnormal by 2-D findings. The left atrium is severely enlarged (>48 ml/m^2,). The aortic valve has three leaflets. Mild aortic valve sclerosis is present. Mild aortic valve regurgitation is present. The mitral valve annulus is moderately dilated. Moderate mitral regurgitation is present. Mild tricuspid regurgitation is present. There is a 0.9 cm pedunculated spherical mass attached to basilar portion of the septal tricuspid valve leaflet. Differential diagnosis includes vegetation, fibroelastoma, atrial myxoma Tricuspid valve appears competent
[2023-08-21 07:36] LABS: Albumin Globulin Ratio 1.4 (0.9-2); Albumin Level 3.7 gm/dl (3.4-5.0); BUN Creatinine Ratio 18.3 (10-20); Bilirubin,Total 0.9 mg/dl (0.2-1.0); Calcium 8.8 mg/dl (8.6-10.3); Creatinine Clr Calc Pharmacy 41.2 ml/min; Est GFR (African American) 56.7 ml/min; Est GFR (Non-African American) 48.9 ml/min; Globulin 2.7 gm/dl (2.5-4.0); Magnesium 2.2 mg/dl (1.7-2.4); Potassium 4.3 mmol/L (3.5-5.1); Total Protein 6.4 gm/dl (6.0-8.3)
[2023-08-21] MEDS: INSULIN ASPART PER UNIT CHARGE SC SCH ×4 (07:56→20:35)
[2023-08-21] MEDS: CLOPIDOGREL BISULFATE 75 MG TAB PO SCH (08:30)
[2023-08-21] MEDS: busPIRone 15 MG TAB PO SCH ×2 (08:30→20:31)
[2023-08-21] MEDS: METOPROLOL SUCC 50MG EXT REL TAB PO SCH ×2 (08:31→20:32)
[2023-08-21] MEDS: MONTELUKAST SODIUM 10 MG TABLET PO SCH (08:31)
[2023-08-21] MEDS: ISOSORBIDE MONO EXTENDED REL 30 MG TABCR PO SCH (08:31)
[2023-08-21] MEDS: SPIRONOLACTONE 25 MG TAB PO SCH (08:32)
[2023-08-21] MEDS: SERTRALINE HCL 50 MG TABLET PO SCH (08:32)
[2023-08-21] MEDS: VENLAFAXINE HCL XR 75 MG CAPXR PO SCH (08:32)
[2023-08-21] MEDS: APIXABAN 5 MG TABLET PO SCH ×2 (08:33→20:33)
[2023-08-21] MEDS: OXYBUTYNIN CHLORIDE XL 5 MG TABCR PO SCH (08:33)
--- NOTE | 2023-08-21 08:54 | Electrocardiogram Report ---
Test Reason : Blood Pressure : / mmHG Vent. Rate : 082 BPM Atrial Rate : 069 BPM P-R Int : 000 ms QRS Dur : 080 ms QT Int : 362 ms P-R-T Axes : 000 056 024 degrees QTc Int : 422 ms Atrial fibrillation Abnormal ECG When compared with ECG of 20-AUG-2023 14:55, (unconfirmed) No significant change was found Confirmed by Lavelle Rodrigues ([id number]) on 08/21/2023 8:54:38 AM Referred By: Nayeli Edwards Confirmed By:Cuate Rodrigues
--- NOTE | 2023-08-21 08:54 | Electrocardiogram Report ---
Test Reason : Blood Pressure : / mmHG Vent. Rate : 111 BPM Atrial Rate : 000 BPM P-R Int : 000 ms QRS Dur : 068 ms QT Int : 324 ms P-R-T Axes : 000 064 071 degrees QTc Int : 440 ms Atrial fibrillation with rapid ventricular response with premature ventricular or aberrantly conducte d complexes Low voltage QRS Nonspecific ST abnormality Abnormal ECG When compared with ECG of 01-DEC-2021 17:17, No significant change was found Confirmed by Lavelle Rodrigues ([id number]) on 08/21/2023 8:53:38 AM Referred By: Confirmed By:Cuate Rodrigues
[2023-08-21] MEDS ORDERED: DIGOXIN 0.125 MG TAB PO SCH (09:00)
[2023-08-21] MEDS: guaiFENesin 600 MG TABCR PO SCH ×2 (13:02→20:32)
--- NOTE | 2023-08-21 15:32 | Hospitalist Progress Note ---
Date of Service August 21, 2023 Assessment & Plan (1) Permanent atrial fibrillation with rapid ventricular response: (2) Chronic diastolic heart failure: (3) Coronary artery disease: (4) T2DM (type 2 diabetes mellitus): Plan per Dr. Blanco's notes with addendum: This is a 78-year-old female who has significant past medical history of CAD status post drug-eluting stent in 2019 in the right coronary artery and JAILENE in the LAD in 2020, chronic atrial fibrillation anticoagulant on Eliquis, HTN, HLD, chronic diastolic heart failure and depression with anxiety who presents to ER secondary to shortness of breath on referral from PCP. 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, left atrium severely enlarged, left ventricular diastolic function abnormal, mild aortic valve sclerosis, mild aortic valve regurg, mitral valve annulus moderately dilated, moderate MR, mild TR Plan is for patient to undergo BORIS as outpatient for further evaluation, blood cultures were done on 07/26 and were negative 08/21 resolved Cardiology service consulted continue usual medications at this time outpatient BORIS SARS-CoV-2 No COVID directed therapies indicated given symptom duration and no oxygen requirement She did complete outpatient course of Paxlovid 08/21 remains on room air CXR no pneumonia (+) dry cough Mucinex, FV, IS ordered PRN Nancy parnell CAD hx of JAILENE to RCA 2019 and LAD in 2020 Chronic Diastolic CHF HTN HLD on plavix, statin, imdur, metoprolol euvolemic to dry on exam 500ml IVF ordered, will monitor closely daily weights strict I and O 08/21 currently euvolemic T2DM most recent a1c 05/2023 6.4 accuchecks ac/hs, diet controlled as outpatient very liberal novolog correction scale only CKD-3 baseline cr 1.0-1.2 chronic, stable DVT ppx: Eliquis DNR/DNI PCP: Grace Dispo: possible d/c home tomorrow when medically stable Admission and Anticipated Discharge Date Admission Date: August 20, 2023 Subjective ff up for A fib, etc seen resting in bed, comfortable in good spirits states she feels fine overall no chest pain, dyspnea, palpitations, dizziness still having dry cough but less no fever/chills no other new symptoms Review of Systems Review of Systems: all noted and negative except for above Physical Exam Physical Exam: General- oriented x 3, not in distress, speaks in sentences with no effort or accessory muscle use Eyes- anicteric Neck- no JVD Lungs- clear breath sounds bilaterally, no rales/wheezes Heart- normal rate, regular rhythm; no murmurs Abdomen- normal bowel sounds, nondistended, soft, nontender Extremities- no pretibial edema, no calf tenderness Neuro- alert, oriented x 3; no gross focal neurologic deficits Skin- warm & dry Results & Data Results & Data Vital Signs (Past 12 Hours) Vital Signs Temp Pulse Pulse Resp BP Pulse Ox O2 Del Method 08/21/23 15:28 36.8 C 94 H 18 119/67 96 Room Air 08/21/23 07:15 88 08/21/23 11:33 36.5 C 88 18 105/71 94 Room Air 08/21/23 11:37 Room Air 08/21/23 08:33 86 08/21/23 07:43 36.8 C 86 18 111/74 96 Room Air 08/21/23 04:25 36.6 C 84 17 110/74 96 Room Air all noted and reviewed including below
[2023-08-21] MEDS: ATORVASTATIN 40 MG TAB PO SCH (20:33)
[2023-08-22] MEDS: INSULIN ASPART PER UNIT CHARGE SC SCH (09:39)
[2023-08-22] MEDS: VENLAFAXINE HCL XR 75 MG CAPXR PO SCH (10:00)
[2023-08-22] MEDS: APIXABAN 5 MG TABLET PO SCH (10:00)
[2023-08-22] MEDS: CLOPIDOGREL BISULFATE 75 MG TAB PO SCH (10:01)
[2023-08-22] MEDS: busPIRone 15 MG TAB PO SCH (10:01)
[2023-08-22] MEDS: ISOSORBIDE MONO EXTENDED REL 30 MG TABCR PO SCH (10:01)
[2023-08-22] MEDS: METOPROLOL SUCC 50MG EXT REL TAB PO SCH (10:02)
[2023-08-22] MEDS: guaiFENesin 600 MG TABCR PO SCH (10:02)
[2023-08-22] MEDS: MONTELUKAST SODIUM 10 MG TABLET PO SCH (10:03)
[2023-08-22] MEDS: SERTRALINE HCL 50 MG TABLET PO SCH (10:03)
[2023-08-22] MEDS: OXYBUTYNIN CHLORIDE XL 5 MG TABCR PO SCH (10:03)
[2023-08-22] MEDS: SPIRONOLACTONE 25 MG TAB PO SCH (10:04)
--- NOTE | 2023-08-22 16:17 | Hospitalist Progress Note ---
Date of Service August 22, 2023 Assessment & Plan (1) Permanent atrial fibrillation with rapid ventricular response: (2) Chronic diastolic heart failure: (3) Coronary artery disease: (4) T2DM (type 2 diabetes mellitus): Plan per Dr. Blanco's notes with addendum: This is a 78-year-old female who has significant past medical history of CAD status post drug-eluting stent in 2019 in the right coronary artery and JAILENE in the LAD in 2020, chronic atrial fibrillation anticoagulant on Eliquis, HTN, HLD, chronic diastolic heart failure and depression with anxiety who presents to ER secondary to shortness of breath on referral from PCP. 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, left atrium severely enlarged, left ventricular diastolic function abnormal, mild aortic valve sclerosis, mild aortic valve regurg, mitral valve annulus moderately dilated, moderate MR, mild TR Plan is for patient to undergo BORIS as outpatient for further evaluation, blood cultures were done on 07/26 and were negative 08/22 resolved Cardiology service consulted continue usual medications at this time outpatient BORIS SARS-CoV-2 No COVID directed therapies indicated given symptom duration and no oxygen requirement She did complete outpatient course of Paxlovid 08/22 remains on room air CXR no pneumonia (+) dry cough Mucinex, FV, IS ordered PRN Tessalon pearls - cough improving continue above at home CAD hx of JAILENE to RCA 2019 and LAD in 2020 Chronic Diastolic CHF HTN HLD on plavix, statin, imdur, metoprolol euvolemic to dry on exam 500ml IVF ordered 08/22 currently euvolemic T2DM most recent a1c 05/2023 6.4 CKD-3 baseline cr 1.0-1.2 chronic, stable DVT ppx: Eliquis DNR/DNI PCP: Grace Dispo: d/c home PCP ff up in 1 week Admission and Anticipated Discharge Date Admission Date: August 20, 2023 Subjective ff up for a fib, etc seen resting in bed, comfortable in good spirits states she feels fine overall no chest pain, dyspnea, palpitations, dizziness cough is much better no other new symptoms states she is ready for discharge today Review of Systems Review of Systems: all noted and negative except for above Physical Exam Physical Exam: General- oriented x 3, not in distress, speaks in sentences with no effort or accessory muscle use Eyes- anicteric Neck- no JVD Lungs- clear breath sounds bilaterally, no rales/wheezes Heart- normal rate, irregularly irregular rhythm; no murmurs Abdomen- normal bowel sounds, nondistended, soft, nontender Extremities- no pretibial edema, no calf tenderness Neuro- alert, oriented x 3; no gross focal neurologic deficits Skin- warm & dry Results & Data Results & Data Vital Signs (Past 12 Hours) Vital Signs Temp Pulse Resp BP Pulse Ox O2 Del Method 08/22/23 11:35 36.4 C L 96 H 19 127/76 91 08/22/23 10:52 36.4 C L 96 H 19 124/81 100 Room Air 08/22/23 08:00 Room Air 08/22/23 07:11 36.4 C L 96 H 19 127/76 91 Room Air all noted and reviewed including below
--- NOTE | 2023-08-22 16:19 | Discharge Summary ---
Discharge Summary Date of Service August 22, 2023 Notes For Next Care Provider Medication Changes From Visit New Medications: Mucinex 600mg BID x 1 week Tessalon Perles PRN Admission HPI Per Admitting Provider This is a 78-year-old female who has significant past medical history of CAD status post drug-eluting stent in 2018 in the right coronary artery and JAILENE in the LAD in 2020, chronic atrial fibrillation anticoagulant on Eliquis, HTN, HLD, chronic diastolic heart failure and depression with anxiety who presents to ER secondary to shortness of breath on referral from PCP. She complained of increased SOB today and elevated HR. She was dx 2 weeks ago with covid. She continues to have cough and MO. Cough is productive but clear. Sx started on as rhinorrhea and now has sinus congestion, sore throat and post nasal drip. She does have chronic dizziness with quick movements which is normal for her in related to the afib. She also has chronic SOB in regards to afib. She feels SOB worsened last 2-3 days and today discovered some substernal, nonradiating chest pressure. She denies palpitations. She denies any fever, chills, sweats, lightheaded, abd pain, dysuria or increased freq with urination. She did complete a course of paxlovid which caused diarrhea and significant nausea. Her last dose was 2 days ago. She does have chronic urinary incontinence. In ED patient was noted to be in A-fib with RVR. She received 2 doses of 5 mg IV Lopressor with improvement in heart rates down to 90 to low 100s. Of significance patient is followed closely with [facility] cardiology. She recently had abnormality noted on echocardiogram in regards to a 0.9 cm spherical mass noted at the basal portion of the septal tricuspid valve. Plan was for her to undergo BORIS but this has been postponed due to COVID. She admits to being compliant with medications and has not missed dosages. Admission Exam Per Admitting Provider General: Nno acute distress Eyes: PERRL, conjunctivae normal, not pale, anicteric sclerae, EOM intact bilaterally ENMT: External ear and nose normal, Dry oral mucosa Respiratory: Normal respiratory effort, no respiratory distress, lungs clear to auscultation, no crackles and no wheezes Cardiovascular: Irregularly irregular S1 S2 Gastrointestinal (Abdomen): Abdomen is not distended, soft, non-tender to palpation, no guarding, no palpable hepatosplenomegaly, normal bowel sounds Musculoskeletal: No pedal edema Neurologic: Alert and oriented x 3, No focal weakness, sensation grossly intact Psychiatric: Euthymic affect Principal Dx & Hospital Course #1 = Principal Diagnosis (1) Permanent atrial fibrillation with rapid ventricular response: (2) Chronic diastolic heart failure: (3) Coronary artery disease: (4) T2DM (type 2 diabetes mellitus): Plan per Dr. Blanco's notes with addendum: This is a 78-year-old female who has significant past medical history of CAD status post drug-eluting stent in 2019 in the right coronary artery and JAILENE in the LAD in 2020, chronic atrial fibrillation anticoagulant on Eliquis, HTN, HLD, chronic diastolic heart failure and depression with anxiety who presents to ER secondary to shortness of breath on referral from PCP. 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, left atrium severely enlarged, left ventricular diastolic function abnormal, mild aortic valve sclerosis, mild aortic valve regurg, mitral valve annulus moderate ly dilated, moderate MR, mild TR Plan is for patient to undergo BORIS as outpatient for further evaluation, blood cultures were done on 07/26 and were negative 08/22 resolved Cardiology service consulted continue usual medications at this time outpatient BORIS SARS-CoV-2 No COVID directed therapies indicated given symptom duration and no oxygen requirement She did complete outpatient course of Paxlovid 08/22 remains on room air CXR no pneumonia (+) dry cough Mucinex, FV, IS ordered PRN Tessalon pearls - cough improving continue above at home CAD hx of JAILENE to RCA 2018 and LAD in 2020 Chronic Diastolic CHF HTN HLD on plavix, statin, imdur, metoprolol euvolemic to dry on exam 500ml IVF ordered 08/22 currently euvolemic T2DM most recent a1c 05/2023 6.4 CKD-3 baseline cr 1.0-1.2 chronic, stable DVT ppx: Eliquis DNR/DNI PCP: Grace Dispo: d/c home PCP ff up in 1 week Discharge Exam General- oriented x 3, not in distress, speaks in sentences with no effort or accessory muscle use Eyes- anicteric Neck- no JVD Lungs- clear breath sounds bilaterally, no rales/wheezes Heart- normal rate, irregularly irregular rhythm; no murmurs Abdomen- normal bowel sounds, nondistended, soft, nontender Extremities- no pretibial edema, no calf tenderness Neuro- alert, oriented x 3; no gross focal neurologic deficits Skin- warm & dry Updated Medication List Medication Instructions Recorded Confirmed Type apixaban 5 mg tablet (Eliquis) 5 mg PO BID 08/19/19 08/20/23 History nitroglycerin 0.4 mg sublingual 0.4 mg sublingual Q5M PRN chest 09/02/19 08/20/23 Rx tablet (Nitrostat) pain #25 tabs digoxin 125 mcg (0.125 mg) tablet 125 mcg PO 3XWK 04/19/20 08/20/23 History spironolactone 25 mg tablet 25 mg PO QAM 04/19/20 08/20/23 History sertraline 50 mg tablet 50 mg PO QAM #30 tabs 09/09/20 08/20/23 Rx acetaminophen 500 mg tablet 1,000 mg PO Q8 PRN Pain 11/28/20 08/20/23 History atorvastatin 80 mg tablet 80 mg PO HS 12/01/21 08/20/23 History metoprolol succinate 50 mg 50 mg PO AMHS 12/01/21 08/20/23 History tablet,extended release 24 hr tolterodine 4 mg capsule,extended 4 mg PO DAILY 12/01/21 08/20/23 History release 24 hr clopidogrel 75 mg tablet 75 mg PO QAM 07/18/22 08/20/23 History isosorbide mononitrate 30 mg 30 mg PO QAM 07/18/22 08/20/23 History tablet,extended release 24 hr montelukast 10 mg tablet 10 mg PO QAM 07/19/22 08/20/23 History venlafaxine 75 mg capsule,extended 75 mg PO QAM 07/19/22 08/20/23 History release 24 hr buspirone 15 mg tablet 15 mg PO AMHS 08/20/23 08/20/23 History benzonatate 100 mg capsule 100 mg PO TID PRN COUGHING SPELL 08/22/23 Rx #14 caps guaifenesin 600 mg tablet, 600 mg PO Q12 7 days #14 tabs 08/22/23 Rx extended release 12 hr (Mucinex) Hospital Stay Data Consultations 08/20/23 17:45 ED Decision to Admit Stat 08/20/23 18:48 Consult Cardiology Routine Diagnostic Imagining Performed CXR CLINICAL HISTORY: Dyspnea FINDINGS: An AP, portable, upright chest radiograph is compared to study dated 12/01/2021. The heart is enlarged noting atherosclerotic calcification of the thoracic aorta. The pulmonary vasculature is noncongested. Chronic interstitial thickening is similar to previous. There is mild bibasilar scarring/atelectasis. The lungs and pleural spaces are otherwise clear. No pneumothorax is seen. The skeletal structures are osteopenic. The bony thorax is grossly intact. IMPRESSION: Cardiomegaly with no active disease in the chest. ACT 112: Negative or not required by law. Pending Results Patient Have Any Pending Studies at Discharge: No Discharge Instructions Given to Patient (Per Discharging Provider) PLEASE REFER TO YOUR NEW MEDICATION LIST AND FOLLOW INSTRUCTIONS CAREFULLY. YOUR NEW MEDICATIONS INCLUDE: Mucinex- for cough Tessalon Perles- as needed for coughing spells Continue to use Incentive Spirometry and Flutter Valve at home. PLEASE CALL YOUR PRIMARY CARE PHYSICIAN OR RETURN TO THE ER IF WITH WORSENING OF SYMPTOMS, INCLUDING chest pain, palpitations, shortness of breath, worsening cough, fever/chills, etc FOLLOW UP WITH PRIMARY CARE PHYSICIAN IN 1 WEEK. FOLLOW UP WITH COMPLAINT INVESTIGATOR IN 2 WEEKS. Total Time Total Time Spent Total Time Spent (In Minutes): >30 minutes
--- NOTE | 2023-08-22 16:27 | Electrocardiogram Report ---
Test Reason : Blood Pressure : / mmHG Vent. Rate : 083 BPM Atrial Rate : 241 BPM P-R Int : 000 ms QRS Dur : 076 ms QT Int : 368 ms P-R-T Axes : 000 046 056 degrees QTc Int : 432 ms Atrial fibrillation Low voltage QRS Abnormal ECG When compared with ECG of 21-AUG-2023 05:37, No significant change was found Confirmed by Lavelle Rodrigues ([id number]) on 08/22/2023 4:27:09 PM Referred By: Nayeli Edwards Confirmed By:Cuate Rodrigues
== END 2023-08-22 12:38 | disposition home or self-care (01) | DRG 308 ==
LOC: ED 14:37 → 2S 18:03 → SUATTDRO 18:03 → 2S 20:19

== ENCOUNTER 2024-08-28 14:35 | Inpatient (IN) ==
--- NOTE | 2024-08-28 15:28 | Emergency Department Note ---
Impression & Plan Acute dyspnea, Atrial fibrillation with rapid ventricular response, Elevated brain natriuretic peptide (BNP) level, Acute exacerbation of CHF (congestive heart failure), Pulmonary vascular congestion ED Provider Note HISTORY OF PRESENT ILLNESS: Patient is a 79-year-old female presenting with shortness of breath. Patient reports for the last few days she has been having increasing shortness of breath. Reports he is only able to walk a few steps before becoming significantly winded. Patient has a history of A-fib, but states that she stopped all of her medications in April 2024. States that "I just got tired of taking all of them." She is not currently on any diuretics or any anticoagulation. She denies any chest pain with her shortness of breath. She does report a significant weight gain. Reports that she weighed 171 back in April but when she got weighed today she was in the 190s. She denies any nausea or vomiting. Denies any abdominal pain. She denies any fevers. Denies any significant cough. Denies any recent sick contact exposures. Denies any chest pain. ROS: as above PHYSICAL EXAM: Constitutional: Patient appears in no acute distress. HENT: Head: Normocephalic and atraumatic. Eyes: EOMI, PERRL Mouth/Throat: Mucous membranes moist. Neck: Trachea midline. Neck supple. Cardiovascular: Tachycardic with irregularly irregular rhythm. No murmurs, rubs or gallops. Intact distal pulses. Pulmonary/Chest: No respiratory distress. Diffuse expiratory wheezes bilaterally. Abdominal: Abdomen soft, no tenderness, rebound or guarding. Musculoskeletal: No edema, tenderness or deformity noted. Skin: Warm and dry. No rash, erythema, pallor or cyanosis Psychiatric: Appropriate mood and affect for situation. Neurological: Alert and keenly responsive. CN II-XII grossly intact, moving all extremities equally and fully. MDM: - Vitals signs showed tachycardic. - History obtained via patient. History as above. - Chronic conditions affecting care: CDK; Afib; CHF; HTN; HLD; CAD (s/p PCI); depression; DM-2 - Differential diagnoses include, but are not limited to: Congestive heart failure; acute coronary syndrome; COPD/asthma exacerbation; pulmonary edema; pulmonary embolism; pneumonia; pneumothorax; viral syndrome - Order placed for continuous cardiac monitoring. At this time, monitor showed rate of 110 bpm with irregular rhythm, per my interpretation. - External medical records reviewed. Discharge summary dated 08/22/2023 was reviewed. Patient was admitted for A-fib with RVR and chronic diastolic heart failure at that time. - EKG interpreted by myself showed atrial fibrillation. Rate tachycardic at 122 bpm. QT 316. No acute ischemic changes. - Laboratory workup interpreted by myself showed normal WBC; normal PT/INR; stable electrolytes; hyperglycemia (glucose 120); normal troponin; elevated BNP (437) - CXR showed pulmonary vascular congestion, per my interpretation. Radiology notes vascular congestion and potential patchy bilateral pneumonia. I think pneumonia is less likely, given the patient has not had any fever or worsening cough. - Viral respiratory panel negative - VBG grossly unremarkable - Patient initially given 5 mg IV Lopressor with improvement of her heart rate down to the low 110-120s. However, she became tachycardic again and blood pressures were stable, so an additional 5 mg IV Lopressor was ordered. Patient does have a history of documented heart failure, so Cardizem bolus and drip were not yet ordered until further heart failure workup can be obtained. - 40 mg IV lasix ordered. - Patient still remained tachycardic, but now in the low 100s. Will be admitted to hospital for further workup, including an echocardiogram and reinitiation of her medications. - Discussion was had with classification case manager about patient's case and need for admission - Hospitalist, Dr. Walker, consulted for admission - [facility]. I have personally spent 43 minutes of critical care time in the direct management of this patient. This includes bedside care, interpretation of diagnostic studies, and testing, discussion with consultants, patient, and family members, and other required patient management activities. This 43 minutes is in excess of all separately billable procedures. 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 Aortic regurgitation mild per 08/2023 ECHO Chronic heart failure with preserved ejection fraction (HFpEF) Tricuspid valve disorder Atrial fibrillation with rapid ventricular response (Acute) T2DM (type 2 diabetes mellitus) diet controlled Status post insertion of drug-eluting stent into left anterior descending (LAD) artery Coronary artery disease Encounter for pre-operative examination Mood disorder (Chronic) On apixaban therapy (Acute) Mitral valve regurgitation Acute diastolic heart failure Permanent atrial fibrillation with rapid ventricular response Altered mental status (Acute) Bilateral primary osteoarthritis of hip Degenerative joint disease of left hip Hypokalemia COVID-19 ruled out Dyslipidemia Coronary artery disease s/p JAILENE to RCA 2018, JAILENE to LAD 2020 Hypertension Atrial fibrillation dx 2018 > hx cardioversion at [facility], unsuccessful. now with persistent afib; Continues on Eliquis ; follows with Chronic diastolic heart failure (Chronic) Aug 2019, patient was readmitted to [facility] with complaints of worsening SOB, edema, weight gain, and Afib RVR. She was evaluated by Dr. Toussaint. She was treated with IV diuretics with good response. Trace pedal edema on exam at [facility] 12/14/20. Depression (Chronic) Prediabetes (Chronic) Asthma (Chronic) rescue inhaler weekly PRN> short of breath most of time per pt Scoliosis (Chronic) Arthritis (Chronic) Medical History Meningioma CKD (chronic kidney disease) stage 3, GFR 30-59 ml/min Methylenetetrahydrofolate reductase (MTHFR) deficiency History of recent hospitalization [facility] 08/20-08/22/23 for ongoing SOB and afib with RVR (post COVID). HR improved with digoxin and BB. 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 Hypothyroidism Urinary tract infection March 2020 > resolved History of cardioversion approx 2 yrs ago; follows with for persitent Afib Hx of breast cancer left; s/p lumpectomy Anxiety Kidney stones passed on own Dyslipidemia Hypertension Atrial fibrillation dx 2018 > hx cardioversion at [facility], unsuccessful. now with persistent afib; Continues on Eliquis ; follows with Coronary artery disease s/p JAILENE to RCA 2018, JAILENE to LAD 2020 Chronic diastolic heart failure Aug 2019, patient was readmitted to [facility] with complaints of worsening SOB, edema, weight gain, and Afib RVR. She was evaluated by Dr. Toussaint. She was treated with IV diuretics with good response. Trace pedal edema on exam at [facility] 12/14/20. History of DVT (deep vein thrombosis) ~2000> left leg > unknown etiology Asthma rescue inhaler weekly PRN> short of breath most of time per pt Scoliosis Arthritis Surgical History History of tooth extraction Hx of eye surgery scar tissue removed bilat History of cataract surgery bilateral History of bilateral tubal ligation History of section x2 History of right knee joint replacement History of left knee replacement S/P bunionectomy bilateral History of colonoscopy S/P left inguinal hernia repair x2 Status post lumbar surgery fusion @ [facility] S/P QUINCY-BSO Hx of lumpectomy Left lumpectomy with lymph node removal Status post coronary artery stent placement JAILENE to RCA 2018, JAILENE to LAD 2020 Family History Other Heart disease No family history of adverse response to anesthesia Social History Smoking Status: Never smoker Second Hand Exposure: No; Do You Dip or Chew Tobacco: No; Hx Alcohol Use: Yes Alcohol type: wine Hx Substance Use: No Preferred Language: Egyptian Communication Ability: Effective Scrap Stripper Hand Required: No Beliefs That Will Affect Care: None marital status: / Current Living Situation: Family Current Living Situation Comment: Lives at home with son Feels Safe at Home: Yes Assistive Devices: Cane, Denture - Upper, Denture - Lower, Glasses, Hearing Aid - Left, Raised Toilet Seat and Walker Allergies Allergies Allergy/AdvReac Type Severity Reaction Status Date / Time adhesive Allergy Unknown HEAVIER Verified 09/24/23 07:30 SURG TAPE-REDNESS SORE SKIN cat dander Allergy Unknown ITCHY Verified 09/24/23 07:30 NOSE, ITCHY EYES,RUNNY NOSE grass pollen-perennial rye, Allergy Unknown GRASS,MOLD-ITCHY Verified 09/24/23 07:30 standar EYES RUNNY NOSE latex Allergy Unknown CONTACT Verified 09/24/23 07:30 DERMATITIS nickel Allergy Unknown Rash Verified 09/24/23 07:30 tetanus toxoid, adsorbed Allergy Unknown SWELLING Verified 09/24/23 07:30 AT SITE KOLE Inhibitors AdvReac Unknown COUGH Verified 09/24/23 07:30 Home Meds Home Medications Medication Instructions Recorded Confirmed acetaminophen 500 mg tablet 1,000 mg PO BID Pain 11/28/20 08/28/24 Results & Data (ED) Vital Signs Vital Signs - 24 hr 08/28/24 14:49 08/28/24 15:33 08/28/24 15:33 Temperature 36.8 C Temperature Source Temporal Artery Scan Pulse Rate 144 H 141 H 116 H Pulse Rate [Right Finger] Respiratory Rate 20 Respiratory Effort / Characteristics Respiratory Depth Shallow Respiratory Pattern Blood Pressure 145/81 H Blood Pressure [Right Arm] Blood Pressure Mean 102 Blood Pressure Mean [Right Arm] Pulse Oximetry 95 95 Oxygen Delivery Method Room Air Room Air Sepsis Recent Fever Within 48 Hours No Sepsis New/Unexplained Change in Mental Status No Sepsis Action Taken by Nursing No Action Required 08/28/24 15:33 08/28/24 15:35 08/28/24 15:51 Temperature Temperature Source Pulse Rate 126 H Pulse Rate [Right Finger] 124 H Respiratory Rate 22 24 Respiratory Effort / Characteristics Spontaneous Respiratory Depth Normal Respiratory Pattern Regular Blood Pressure 131/88 Blood Pressure [Right Arm] 131/88 Blood Pressure Mean Blood Pressure Mean [Right Arm] 102 Pulse Oximetry 95 96 Oxygen Delivery Method Room Air Room Air Sepsis Recent Fever Within 48 Hours Sepsis New/Unexplained Change in Mental Status Sepsis Action Taken by Nursing 08/28/24 15:52 08/28/24 16:18 08/28/24 16:52 Temperature Temperature Source Pulse Rate Pulse Rate [Right Finger] 102 H 110 H Respiratory Rate 24 24 Respiratory Effort / Characteristics Spontaneous Respiratory Depth Respiratory Pattern Regular Blood Pressure Blood Pressure [Right Arm] 114/77 132/98 Blood Pressure Mean Blood Pressure Mean [Right Arm] 89 109 Pulse Oximetry 95 96 Oxygen Delivery Method Room Air Room Air Room Air Sepsis Recent Fever Within 48 Hours Sepsis New/Unexplained Change in Mental Status Sepsis Action Taken by Nursing Laboratory Data 08/28/24 15:25 08/28/24 15:25 Lab Results 08/28/24 08/28/24 08/28/24 Range/Units 15:24 15:25 15:55 WBC 8.62 (4.8-10.8) K/ul RBC 5.46 H (4.20-5.40) M/uL Hgb 15.4 (12.0-16.0) g/dl Hct 47.7 H (37.0-47.0) % MCV 87.4 (80.0-100.0) fL MCH 28.2 (25.0-34.0) pg MCHC 32.3 (32.0-36.0) g/dL RDW Std Deviation 48.0 H (36.4-46.3) fL RDW Coeff of Stephan 15.2 H (11.5-14.5) % Plt Count 269 (130-400) K/uL MPV 11.0 (9.4-12.4) fL Immature Gran % (Auto) 0.3 % Neut % (Auto) 63.5 % Lymph % (Auto) 26.7 % [place] % (Auto) 7.4 % Eos % (Auto) 1.4 % Baso % (Auto) 0.7 % Neut # (Auto) 5.47 (1.40-6.50) K/uL Lymph # (Auto) 2.30 (1.20-3.40) K/uL [place] # (Auto) 0.64 H (0.11-0.59) K/uL Eos # (Auto) 0.12 (0.00-0.50) K/uL Baso # (Auto) 0.06 (0.00-0.20) K/uL Immature Gran # (Auto) 0.03 (0.01-0.20) K/uL PT 11.4 (9.0-12.0) Seconds INR 1.1 (0.9-1.1) VBG pH 7.44 H (7.36-7.41) VBG pCO2 37 L (38-50) mmHg VBG pO2 37 mmHg VBG HCO3 25 mmol/L VBG O2 Saturation 67.1 % VBG Base Excess 1.1 mEq/L Sodium 143 (136-145) mmol/L Potassium 3.8 (3.5-5.1) mmol/L Chloride 109 H (98-107) mmol/L Carbon Dioxide 25 (21-32) mmol/L Anion Gap 9 (3-11) BUN 15 (6-23) mg/dl Creatinine 0.95 (0.6-1.2) mg/dl Est Cr Clr Drug Dosing 49.4 ml/min eGFR 61.33 BUN/Creatinine Ratio 15.8 (10-20) Glucose 120 H (70-99(Fasting)) mg/dl Calcium 9.6 (8.6-10.3) mg/dl Magnesium 2.0 (1.7-2.4) mg/dl Total Bilirubin 1.0 (0.2-1.0) mg/dl AST 16 (13-39) U/L ALT 8 (7-52) U/L Alkaline Phosphatase 74 (34-104) U/L Troponin I High Sens 7.8 (0-14) pg/ml B-Natriuretic Peptide 437 H (0-100) pg/ml Total Protein 6.8 (6.0-8.3) gm/dl Albumin 4.2 (3.4-5.0) gm/dl Globulin 2.6 (2.5-4.0) gm/dl Albumin/Globulin Ratio 1.6 (0.9-2) Adenovirus (PCR) Not Detected (NotDetected) B. pertussis DNA (PCR) Not Detected (NotDetected) B.parapertussis DNA PCR Not Detected (NotDetected) C. pneumoniae DNA (PCR) Not Detected (NotDetected) Coronavirus OC43 (PCR) Not Detected (NotDetected) Coronavirus HKU1 (PCR) Not Detected (NotDetected) Coronavirus 229E (PCR) Not Detected (NotDetected) SARS-CoV-2 (PCR) Not Detected (NotDetected) Coronavirus NL63 (PCR) Not Detected (NotDetected) Human Metapneumovir PCR Not Detected (NotDetected) Influenza Type A (PCR) Not Detected (NotDetected) Influenza Type B (PCR) Not Detected (NotDetected) M. pneumoniae (PCR) Not Detected (NotDetected) Parainfluenza 1 (PCR) Not Detected (NotDetected) Parainfluenza 2 (PCR) Not Detected (NotDetected) Parainfluenza 3 (PCR) Not Detected (NotDetected) Parainfluenza 4 (PCR) Not Detected (NotDetected) RSV (PCR) Not Detected (NotDetected) Entero/Rhino (PCR) Not Detected (NotDetected) Administered Medications Discontinued Medications Albuterol (Albut/Ipratrop 3mg/0.5mg Neb 3 Ml Vial) 3 ml NEB NOW STA; Protocol Stop: 08/28/24 15:43 Last Admin: 08/28/24 15:53 Dose: 3 ml Documented By: MILES Metoprolol Tartrate (Metoprolol Tartrate 1 Mg/Ml Vial) 5 mg IV NOW STA Stop: 08/28/24 15:29 Last Admin: 08/28/24 15:35 Dose: 5 mg Documented By: MILES Imaging Data Radiologist's Impression: Chest X-Ray 08/28/24 14:46 EXAM: Radiograph of the Chest 1 View INDICATION: Dyspnea. TECHNIQUE: Frontal view of the chest. COMPARISON: 08/20/2023 FINDINGS: Lungs and pleural spaces: Shallow inspiration with patchy perihilar and basilar infiltrates and vascular congestion. No pleural effusion or pneumothorax. Heart: Stable cardiomegaly. Mediastinum: Normal contour. Bones/joints: Degenerative changes noted throughout the spine and both shoulders. No lytic or blastic lesions noted. Soft tissues: No abnormality noted. No radiopaque foreign body noted. Upper abdomen: No abnormality noted. IMPRESSION: Shallow inspiration with vascular congestion and patchy bilateral pneumonia. ACT 112: Negative or not required by law. Electronically signed by Merissa Dickinson 08-28-2024 4:20 PM Discharge Plan Visit Data Chief Complaint: Shortness of Breath/Dyspnea Stated Complaint: SOB, COUGHING, WEAK, ED Provider: Melida Melton Discharge Problem: Acute dyspnea, Atrial fibrillation with rapid ventricular response, Elevated brain natriuretic peptide (BNP) level, Acute exacerbation of CHF (congestive heart failure), Pulmonary vascular congestion Forms Stand Alone Forms: [facility] [employer] Prescriptions Prescriptions: No Action acetaminophen 500 mg tablet 1,000 mg PO BID Referrals Referrals: Nayeli Edwards DO [Primary Care Provider] -
[2024-08-28] MEDS: METOPROLOL TARTRATE 1 MG/ML VIAL IV STA ×2 (15:35→16:54)
[2024-08-28 15:38] LABS: Basophils # (auto) 0.06 K/uL (0.00-0.20); Basophils % (auto) 0.7 %; Eosinophils # (auto) 0.12 K/uL (0.00-0.50); Eosinophils % (auto) 1.4 %; Hematocrit (blood only) 47.7 % (37.0-47.0); Hemoglobin 15.4 g/dl (12.0-16.0); Immature Granulocytes # (auto) 0.03 K/uL (0.01-0.20); Immature Granulocytes % (auto) 0.3 %; Lymphocytes % (auto) 26.7 %; Mean Corpuscular Hemoglobin 28.2 pg (25.0-34.0); Mean Corpuscular Hgb Conc 32.3 g/dL (32.0-36.0); Mean Corpuscular Volume 87.4 fL (80.0-100.0); Monocytes # (auto) 0.64 K/uL (0.11-0.59); Monocytes % (auto) 7.4 %; Neutrophils # (auto) 5.47 K/uL (1.40-6.50); Neutrophils % (auto) 63.5 %; Platelet Count 269 K/uL (130-400); RDW Coefficient of Variation 15.2 % (11.5-14.5); Red Blood Count 5.46 M/uL (4.20-5.40); White Blood Count 8.62 K/ul (4.8-10.8)
[2024-08-28 15:53] LABS: Albumin Globulin Ratio 1.6 (0.9-2); Albumin Level 4.2 gm/dl (3.4-5.0); BUN Creatinine Ratio 15.8 (10-20); Calcium 9.6 mg/dl (8.6-10.3); Creatinine Clr Calc Pharmacy 49.4 ml/min; Globulin 2.6 gm/dl (2.5-4.0); Potassium 3.8 mmol/L (3.5-5.1); Total Protein 6.8 gm/dl (6.0-8.3)
[2024-08-28] MEDS: ALBUT/IPRATROP 3MG/0.5MG NEB 3 ML VIAL NEB STA (15:53)
[2024-08-28 15:56] LABS: Base Excess VBG 1.1 mEq/L; HCO3 VBG 25 mmol/L; Oxygen Saturation VBG 67.1 %; PCO2 VBG 37 mmHg (38-50); PO2 VBG 37 mmHg; pH VBG 7.44 (7.36-7.41)
[2024-08-28 15:59] LABS: Troponin I High Sensitivity 7.8 pg/ml (0-14)
[2024-08-28 16:04] LABS: INR 1.1 (0.9-1.1); Prothrombin Time 11.4 Seconds (9.0-12.0)
--- NOTE | 2024-08-28 16:20 | XRay Report ---
EXAM: Radiograph of the Chest 1 View INDICATION: Dyspnea. TECHNIQUE: Frontal view of the chest. COMPARISON: 08/20/2023 FINDINGS: Lungs and pleural spaces: Shallow inspiration with patchy perihilar and basilar infiltrates and vascular congestion. No pleural effusion or pneumothorax. Heart: Stable cardiomegaly. Mediastinum: Normal contour. Bones/joints: Degenerative changes noted throughout the spine and both shoulders. No lytic or blastic lesions noted. Soft tissues: No abnormality noted. No radiopaque foreign body noted. Upper abdomen: No abnormality noted. IMPRESSION: Shallow inspiration with vascular congestion and patchy bilateral pneumonia. ACT 112: Negative or not required by law. Electronically signed by Merissa Dickinson 08-28-2024 4:20 PM
[2024-08-28 16:26] LABS: Adenovirus PCR Not Detected (NotDetected); Bordetella parapertussis PCR Not Detected (NotDetected); Bordetella pertussis PCR Not Detected (NotDetected); Chlamydia pneumoniae PCR Not Detected (NotDetected); Coronavirus 229E PCR Not Detected (NotDetected); Coronavirus CoV-2 (COVID19)PCR Not Detected (NotDetected); Coronavirus HKU1 PCR Not Detected (NotDetected); Coronavirus NL63 PCR Not Detected (NotDetected); Coronavirus OC43PCR Not Detected (NotDetected); Human Metapneumovirus PCR Not Detected (NotDetected); Influenza A PCR Not Detected (NotDetected); Influenza B PCR Not Detected (NotDetected); Mycoplasma pneumoniae PCR Not Detected (NotDetected); Parainfluenza Virus 1 PCR Not Detected (NotDetected); Parainfluenza Virus 2 PCR Not Detected (NotDetected); Parainfluenza Virus 3 PCR Not Detected (NotDetected); Parainfluenza Virus 4 PCR Not Detected (NotDetected); Respiratory Syncytial VirusPCR Not Detected (NotDetected); Rhinovirus/Enterovirus PCR Not Detected (NotDetected)
[2024-08-28] MEDS: FUROSEMIDE 40 MG/4 ML VIAL IV ONE (16:58)
[2024-08-28] MEDS ORDERED: METOPROLOL TARTRATE 1 MG/ML VIAL IV PRN (17:20)
[2024-08-28] MEDS ORDERED: ALUMINUM/MAGNESIUM SUSP 30 ML UDC PO PRN (17:23)
[2024-08-28] MEDS ORDERED: ACETAMINOPHEN 325 MG TAB PO PRN (17:23)
[2024-08-28] MEDS ORDERED: GLUCAGON FOR INJ 1 MG VIAL SQ PRN (17:23)
[2024-08-28] MEDS ORDERED: CARBOHYDRATES FOR HYPOGLYCEMIA PO PRN (17:23)
[2024-08-28] MEDS ORDERED: GLUCOSE 10 TAB/TUBE PO PRN (17:23)
[2024-08-28] MEDS ORDERED: GLUCOSE 40% GEL 15 GM TUBE PO PRN (17:23)
[2024-08-28] MEDS ORDERED: DEXTROSE 50% 50 ML SYRINGE IV PRN (17:23)
--- NOTE | 2024-08-28 17:37 | History & Physical Report ---
Date of Service August 28, 2024 Assessment & Plan (1) Pulmonary vascular congestion: Plan Acute on chronic heart failure with preserved ejection fraction A-fib RVR Medication non compliance Likely secondary to medical noncompliance and possibly triggered by pulmonary infection. Admitting CXR with pulmonary vascular congestion, BNP elevated, patient with shortness of breath worsening over the last few weeks. Patient used to take eliquis, metoprolol, Lasix, Aldactone, Imdur, atorvastatin. Will put her on IV Lasix 40 mg IV daily, metoprolol 25 mg twice daily, as needed IV metoprolol. Telemetry monitoring. Strict I's and O's, fluid restriction of 1800 mL a day. Echo. Cardiology consult. Heparin drip. Possible pneumonia Mild asthma exacerbation Patient presents with shortness of breath and cough with greenish sputum for about a week. Rhonci and wheeze on exam. Will start her on Rocephin and doxycycline, sent sputum and blood culture. solu medrol and jean-pierre duoneb Repeat chest imaging in about 6 weeks time to document resolution. Other chronic medical condition: HTN, HLD, T2DM, Hypothyroidism --> repeat A1c in AM, repeat lipid profile in a.m. Repeat TSH In AM w/ fT4, will likely need statin restarted, continue to titrate cardiac medications. DVT prophylaxis: Patient on heparin drip DNI/DNI History of Present Illness Chief Complaint: Shortness of breath, cough with greenish sputum Primary Care Provider: Nayeli Edwards DO 79-year-old lady with PMH of HLD, T2DM, hypothyroidism, HTN, moderate persistent asthma without complication, CAD, HFpEF, stress incontinence, CKD stage IIIa, meningioma, KOLE inhibitor intolerance presented to the ED with complaint of shortness of breath and cough. Patient reports having shortness of breath for a while but it has been acutely worsening since last few weeks. Patient also reports having cough with greenish sputum since about 1 week, denies sore throat. Patient denies fever. Patient reports belly pain associated with cough. Patient reports diarrhea on and off for few weeks. Patient denies any pain or burning while passing urine. Reports feeling tired and has heavy breathing. Patient reports she stopped all her medications in April and stopped following with Dr's Office. She states that she did it on her own without instructions from her doctor's office. Patient reports being on Eliquis and heart medications including metoprolol/Lasix/Aldactone in the past. Patient is not very clear of what other medications she was taking in the past. DNR/DNI per my d/w the patient. Plan of care discussed with the patient in detail. She voiced understanding. Allergies Allergy/AdvReac Type Severity Reaction Status Date / Time adhesive Allergy Unknown HEAVIER Verified 09/24/23 07:30 SURG TAPE-REDNESS SORE SKIN cat dander Allergy Unknown ITCHY Verified 09/24/23 07:30 NOSE, ITCHY EYES,RUNNY NOSE grass pollen-perennial rye, Allergy Unknown GRASS,MOLD-ITCHY Verified 09/24/23 07:30 standar EYES RUNNY NOSE latex Allergy Unknown CONTACT Verified 09/24/23 07:30 DERMATITIS nickel Allergy Unknown Rash Verified 09/24/23 07:30 tetanus toxoid, adsorbed Allergy Unknown SWELLING Verified 09/24/23 07:30 AT SITE KOLE Inhibitors AdvReac Unknown COUGH Verified 09/24/23 07:30 Home Medications Medication Instructions Recorded Confirmed Type acetaminophen 500 mg tablet 1,000 mg PO BID Pain 11/28/20 08/28/24 History Past Med/Surg History Problem List (Updated 08/28/24 @ 16:58 by Melida Melton MD) Pulmonary vascular congestion (Acute) Acute exacerbation of CHF (congestive heart failure) (Acute) Elevated brain natriuretic peptide (BNP) level (Acute) Atrial fibrillation with rapid ventricular response (Acute) Acute dyspnea (Acute) 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; [facility] 09/24/23 to evaluate; '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 Aortic regurgitation mild per 08/2023 ECHO Chronic heart failure with preserved ejection fraction (HFpEF) Tricuspid valve disorder Atrial fibrillation with rapid ventricular response (Acute) T2DM (type 2 diabetes mellitus) diet controlled Status post insertion of drug-eluting stent into left anterior descending (LAD) artery Coronary artery disease Encounter for pre-operative examination Mood disorder (Chronic) On apixaban therapy (Acute) Mitral valve regurgitation Acute diastolic heart failure Permanent atrial fibrillation with rapid ventricular response Altered mental status (Acute) Bilateral primary osteoarthritis of hip Degenerative joint disease of left hip Hypokalemia COVID-19 ruled out Dyslipidemia Coronary artery disease s/p JAILENE to RCA 2018, JAILENE to LAD 2020 Hypertension Atrial fibrillation dx 2018 > hx cardioversion at [facility], unsuccessful. now with persistent afib; Continues on Eliquis ; follows with Chronic diastolic heart failure (Chronic) Aug 2019, patient was readmitted to [facility] with complaints of worsening SOB, edema, weight gain, and Afib RVR. She was evaluated by Dr. Toussaint. She was treated with IV diuretics with good response. Trace pedal edema on exam at [facility] 12/14/20. Depression (Chronic) Prediabetes (Chronic) Asthma (Chronic) rescue inhaler weekly PRN> short of breath most of time per pt Scoliosis (Chronic) Arthritis (Chronic) Medical History Meningioma CKD (chronic kidney disease) stage 3, GFR 30-59 ml/min Methylenetetrahydrofolate reductase (MTHFR) deficiency History of recent hospitalization [facility] 08/20-08/22/23 for ongoing SOB and afib with RVR (post COVID). HR improved with digoxin and BB. 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 Hypothyroidism Urinary tract infection March 2020 > resolved History of cardioversion approx 2 yrs ago; follows with for persitent Afib Hx of breast cancer left; s/p lumpectomy Anxiety Kidney stones passed on own Dyslipidemia Hypertension Atrial fibrillation dx 2017 > hx cardioversion at [facility], unsuccessful. now with persistent afib; Continues on Eliquis ; follows with Coronary artery disease s/p JAILENE to RCA 2018, JAILENE to LAD 2020 Chronic diastolic heart failure Aug 2019, patient was readmitted to [facility] with complaints of worsening SOB, edema, weight gain, and Afib RVR. She was evaluated by Dr. Toussaint. She was treated with IV diuretics with good response. Trace pedal edema on exam at [facility] 12/14/20. History of DVT (deep vein thrombosis) ~1999> left leg > unknown etiology Asthma rescue inhaler weekly PRN> short of breath most of time per pt Scoliosis Arthritis Surgical History History of tooth extraction Hx of eye surgery scar tissue removed bilat History of cataract surgery bilateral History of bilateral tubal ligation History of section x2 History of right knee joint replacement History of left knee replacement S/P bunionectomy bilateral History of colonoscopy S/P left inguinal hernia repair x2 Status post lumbar surgery fusion @ [facility] S/P QUINCY-BSO Hx of lumpectomy Left lumpectomy with lymph node removal Status post coronary artery stent placement JAILENE to RCA 2018, JAILENE to LAD 2020 Family History Other Heart disease No family history of adverse response to anesthesia Social History Smoking Status: Never smoker Second Hand Exposure: No; Do You Dip or Chew Tobacco: No; Hx Alcohol Use: Yes Alcohol type: wine Hx Substance Use: No Preferred Language: Peruvian Communication Ability: Effective Formulation Technician Required: No Beliefs That Will Affect Care: None marital status: / Current Living Situation: Family Current Living Situation Comment: Lives at home with son Feels Safe at Home: Yes Assistive Devices: Cane, Denture - Upper, Denture - Lower, Glasses, Hearing Aid - Left, Raised Toilet Seat and Walker Review of Systems Review of Systems: Negative otherwise mentioned in HPI. Physical Exam Physical Exam: GENERAL: Alert and oriented x3. NAD, on RA. appears tired. HEENT: No pallor, no icterus. Pupils equal, round and reactive to light. Oral mucosa moist. NECK: No JVD, no neck masses. HEART: S1 and S2 heard. irregular rate and rhythm, HR In 100-110. No murmur, no gallop. RESPIRATORY SYSTEM: Normal AP diameter. No accessory muscle use. b/l crackles and rhonci. ABDOMEN: Soft, bowel sounds present, nontender, no distention. CENTRAL NERVOUS SYSTEM: No facial droop. Speech is clear. Obeys simple commands. Moves extremities. EXTREMITIES: trace to 1+ ble edema, no erythema seen. Results & Data Results & Data Vital Signs (Past 12 Hours) Vital Signs Temp Pulse Pulse Resp BP BP Pulse Ox 08/28/24 16:54 110 H 132/98 08/28/24 16:52 110 H 24 132/98 96 08/28/24 16:18 08/28/24 15:52 102 H 24 114/77 95 08/28/24 15:51 24 96 08/28/24 15:35 126 H 131/88 08/28/24 15:33 124 H 22 131/88 95 08/28/24 15:33 116 H 95 08/28/24 15:33 141 H 08/28/24 14:49 36.8 C 144 H 20 145/81 H 95 O2 Del Method 08/28/24 16:54 08/28/24 16:52 Room Air 08/28/24 16:18 Room Air 08/28/24 15:52 Room Air 08/28/24 15:51 Room Air 08/28/24 15:35 08/28/24 15:33 Room Air 08/28/24 15:33 Room Air 08/28/24 15:33 08/28/24 14:49 Room Air
[2024-08-28] MEDS ORDERED: methylPREDNISolone 125 MG/2 ML VIAL IV SCH (17:45)
[2024-08-28] MEDS: POTASSIUM CHLORIDE CRTAB 20 MEQ TABCR PO STA (18:33)
[2024-08-28] MEDS: methylPREDNISolone 125 MG/2 ML VIAL IV ONE (18:34)
[2024-08-28] MEDS: cefTRIAXone SODIUM 2,000 MG/50 ML BAG IV SCH (18:38)
[2024-08-28 19:15] LABS: Partial Thromboplastin Ratio 1.4; Partial Thromboplastin Time 37 Seconds (21-31)
[2024-08-28] MEDS: HEPARIN SODIUM/DEXTROSE 25,000 UNITS/500 ML BAG IV SCH (19:28)
[2024-08-28] MEDS: LEVALBUTEROL 1.25 MG/3 ML NEB NEB SCH (20:52)
[2024-08-28] MEDS: INSULIN ASPART PER UNIT CHARGE SC SCH (21:09)
[2024-08-28] MEDS: BENZONATATE 100 MG CAPSULE PO SCH (21:24)
[2024-08-28] MEDS: DOXYCYCLINE HYCLATE 100 MG in DEXTROSE 5% MINI-B 100 ML IV SCH (21:24)
[2024-08-28] MEDS: guaiFENesin 600 MG TABCR PO SCH (21:24)
[2024-08-28] MEDS: METOPROLOL TARTRATE 25 MG TAB PO SCH (21:24)
[2024-08-28 22:32] LABS: Appearance Urine Clear (Clear); Bilirubin Urine Negative (Negative); Blood Urine Negative (Negative); Color Urine Yellow; Glucose Urine UA Negative (Negative); Ketones Urine Negative (Negative); Leukocyte Esterase Urine Negative (Negative); Nitrite Urine Negative (Negative); Protein Urine Negative (Negative); Specific Gravity Urine 1.008 (1.000-1.030); Urobilinogen Urine Negative (Negative); pH Urine 5.5 (4.5-7.5)
[2024-08-29] MEDS: Heparin IV Adult Wt-Based Low-Dose *NO* INITIAL Bolus Protocol IV SCH (00:14)
--- OUTSIDE RECORDS SUMMARY | 2024-08-29 01:40 | External Medical Summary | Summary of Care ---
Author Name Unknown Organization [facility] Address [address] [place] [address] Phone [phone] Care Team Providers Care Site Acquisition Manager Name Role Phone Unavailable Primary Care Provider Unavailabl e Reason for Visit * Reason Onset Date Comments Advice 05/08/2024 Encounter Details Date Type Department Care Team (Late st Contact Info) Description 05/08/2024 Telephone Family Practice [facility] [address] [place] [address] Kandy Velez, RN [address] [place] [address] Advice Allergies Active Allergy Reactions Criticality Noted Date Comments Jer Inhibitors Cough Medium 11/21/2011 Adhesive Tape 12/16/2002 Red, sore, inflamed skin Cat Dander Itching 05/06/2012 Swelling, sneezing Dust Itching 05/06/2012 Swelling, sneezing Latex Hives High 07/18/2009 Exposed to latex gloves worn by dentist, sore mouth Latex Other (Please comment) 06/29/2021 Nickel Rash 09/24/2023 Octacosanol 05/06/2012 Grass, Pollen Tetanus Toxoid Edema Other Medium 03/29/2011 Swollen arm at the site of the injection, occurred the last two times she had a booster. In 2012 received Tetanus vaccine, tolerated well documented as of this encounter (statuses as of 05/21/2024) Medications Medication Sig Dispensed Refills Start Date End Date Status Atorvastatin Calcium 80 MG Oral Tablet (Lipitor)Indications :Mixed hyperlipidemia Take 1 Tablet by mouth in the morning. 30 Tablet 06/27/2023 Active busPIRone HCl 15 MG Oral Tablet (Buspar)Indications: Stress at home Take 1 Tablet by mouth in the morning and 1 Tablet before bedtime. 60 Tablet 06/27/2023 Active Clopidogrel Bisulfate 75 MG Oral Tablet (pLAVix)Indications: S/P drug eluting coronary stent placement Take 1 Tablet by mouth in the morning. 30 Tablet 06/27/2023 Active Digoxin 125 MCG Oral Tablet (Lanoxin)Indications :S/P drug eluting coronary stent placement,Persistent atrial fibrillation (HCC),Coronary artery disease of [place] artery of [place] heart with stable angina pectoris (HCC),Hypertensive heart disease with chronic diastolic congestive heart failure (HCC) TAKE ONE TABLET BY MOUTH IN THE MORNING ON SATURDAY, SATURDAY AND SATURDAY 12 Tablet 06/27/2023 Active Apixaban 5 MG Oral Tablet (Eliquis)Indications :Persistent atrial fibrillation (HCC) Take 1 Tablet by mouth in the morning and 1 Tablet before bedtime. 60 Tablet 06/27/2023 Active Furosemide 40 MG Oral Tablet (Lasix) Take 1 Tablet by mouth in the morning. 30 Tablet 06/27/2023 Active Isosorbide Mononitrate ER 30 MG Oral Tablet Extended Release 24 Hour (Imdur) Take 1 Tablet by mouth in the morning. 30 Tablet 06/27/2023 Active Magnesium Oxide 400 MG Oral Tablet Take 1 Tablet by mouth at bedtime. 30 Tablet 06/27/2023 Active Potassium Chloride ER 10 MEQ Oral Capsule Extended Release Take 1 Capsule by mouth in the morning and 1 Capsule before bedtime. 60 Capsule 06/27/2023 Active Spironolactone 25 MG Oral Tablet (Aldactone)Indicatio ns:Hypertensive heart disease with chronic diastolic congestive heart failure (HCC) Take 1 Tablet by mouth in the morning. 30 Tablet 06/27/2023 Active Vitamin D 25 MCG (1000 UT) Oral Tablet Take 1 Tablet by mouth in the morning. 30 Tablet 06/27/2023 Active guaiFENesin ER 600 MG Oral Tablet Extended Release 12 Hour (Mucinex)Indications :Viral upper respiratory tract infection Take 1 Tablet by mouth in the morning and 1 Tablet before bedtime. Take with plenty of water. Do not cut, crush or chew. 40 Tablet 2 08/09/2023 Active Additional Information Patient not taking.Reported on 10/17/2023 Nitroglycerin 0.4 MG Sublingual Tablet Sublingual (Nitrostat)Indicatio ns:Coronary artery disease involving [place] coronary artery of [place] heart without angina pectoris Place 1 Tablet under the tongue every 5 minutes as needed for Pain, Chest. 25 Tablet 08/20/2023 Active Venlafaxine HCl ER 150 MG Oral Capsule Extended Release 24 Hour (Effexor XR)Indications:Mood disorder (HCC),JASON (generalized anxiety disorder) Take 1 Capsule by mouth in the morning. Do not cut, crush, or chew.. 30 Capsule 5 01/26/2024 Active Metoprolol Succinate ER 50 MG Oral Tablet Extended Release 24 Hour (toPROL XL)Indications:Persi stent atrial fibrillation (HCC),HTN, goal below 140/90 Metoprolol ER 1.5 tablets in the morning and 1 tablet in the evening. 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 Hypertensive heart and kidne y disease with chronic diastolic congestive heart failure and stage 3a chronic kidney disease 08/20/2023 Chronic kidney disease, stage 3a 07/01/2023 Overview: Per CKD protocol Type 2 diabetes mellitus wit h stage 3a chronic kidney disease, without long-term current use of insulin 01/01/2023 Hypothyroidism 01/01/2023 Pure hypercholesterolemia 01/01/2023 Recurrent major depressive disorder, in partial remission 10/01/2022 Diabetes mellitus 10/01/2022 Aortic atherosclerosis 07/12/2021 Overview: CXR 12/2020 S/P hip replacement, left 10/06/2020 Impaired mobility and ADLs 05/05/2020 Non-traumatic rhabdomyolysis 05/05/2020 Personal history of fall 05/05/2020 Meningioma 05/05/2020 Mitral valve insufficiency 05/05/2020 Hyperlipidemia 05/05/2020 Other idiopathic scoliosis, thoracolumbar region 05/05/2020 Personal history of malignant neoplasm of breast 05/05/2020 History of coronary angioplasty with insertion o f stent 05/05/2020 Generalized weakness 05/05/2020 Abnormality of gait 05/05/2020 DNR (do not resuscitate) 05/05/2020 ADVANCE DIRECTIVE INFORMATION 03/31/2020 Overview: No, Advance Directive brochure given to patient at prior appointment. Stress incontinence 03/31/2020 Coronary artery disease invo lving [place] coronary artery of [place] heart without angina pectoris 10/12/2019 Hypertensive heart disease w ith chronic diastolic congestive heart failure 09/18/2019 Mood disorder 09/18/2019 Persistent atrial fibrillation 07/23/2019 Moderate persistent asthma without complication 07/23/2019 Methylenetetrahydrofolate reductase deficiency 1 History of DVT (deep vein thrombosis) 06/28/2017 Left SNHL 01/17/2017 History of lumbar laminectomy for spinal cord de compression 03/11/2015 Actinic keratosis 11/19/2013 JER inhibitor intolerance 11/21/2011 HTN, GOAL BELOW 140/90 09/07/2009 Overview: Modified per HTN protocol #16. GENERAL OSTEOARTHROSIS documented as of this encounter (statuses as of 05/21/2024) Resolved Problems Problem Noted Date Diagnosed Date Resolved Date Unspecified dementia, unspec ified severity, without behavioral disturbance, psychotic disturbance, mood disturbance, and anxiety 10/01/2022 12/19/2022 Overview: Duplicate Unspecified dementia, unspec ified severity, without behavioral disturbance, psychotic disturbance, mood disturbance, and anxiety 10/01/2022 01/01/2023 KALEE (acute kidney injury) 05/05/2020 Overview: duplicate Dehydration 05/05/2020 05/30/2020 Overview: Acute, history Type 2 diabetes mellitus wit h hemoglobin A1c goal of less than 7.0% 05/05/2020 09/19/2021 Anxiety state 05/05/2020 05/30/2020 Overview: history History of hysterectomy 05/05/202003/2020 [facility] resident 05/05/20202022 Urinary tract infection without hematuria 05/02/2020 05/30/2020 Overview: history Avascular necrosis 05/02/2020 Functional incontinence 03/31/202008/23 Urge incontinence of urine 03/31/2020 1 11/19/2020 Urinary incontinence without sensory awareness 03/31/2020 09/19/2021 Continuous leakage of urine 03/31/2020 05/30/2020 Overview: duplicate Kidney disease, chronic, sta ge III (GFR 30-59 ml/min) 12/01/2019 07/04/2023 Overview: Per CKD protocol Diastolic heart failure 07/23/201911/21 Overview: Chronic diastolic heart failure on the PL Class 2 severe obesity due t o excess calories with serious comorbidity and body mass index (BMI) of 39.0 to 39.9 in adult 07/23/2019 3 Overview: Body Mass Index: 34.00 kg/mAbnormal 1.575 m (5' 2") as of 10/01/2022 84.3 kg (185 lb 14.4 oz) as of 10/31/2022 Historical Prediabetes 12/31/2017 05/05/2020 Overview: Per Prediabetes protocol #1 Body mass index (BMI) of 40. 0 to 44.9 in adult 07/22/2017 12/03/2019 Overview: History Mild intermittent asthma without complication 06/28/20 17 07/23/2019 Right acute serous otitis media 01/17/2017 04/16/2017 ETD (eustachian tube dysfunction) 01/17/2017 04/16/2017 Mixed hearing loss of right ear 01/17/2017 04/16/2017 Deep vein thrombosis (DVT) o f left lower extremity 12/19/2016 06/28/2017 Overview: Left fem/pop DVT Adrenal adenoma 01/26/2015 08/15/2017 Depression 11/26/2014 12/19/2022 Overview: More specified dx listed on pl Neoplasm of uncertain behavior of skin 11/19/2013 08/15/2017 Inflamed seborrheic keratosis 11/19/2013 06/28/2017 Obesity, morbid (more than 1 00 lbs over ideal weight or BMI > 40) 09/08/2013 04/16/2017 Overview: bmi= 42.62 09/08/13 Acute pharyngitis 09/08/2013 04/16/2017 S/P TKR (total knee replacement) 01/13/2012 07/24/2018 History of MTHFR mutation 10/01/2011 Obesity, morbid (more than 1 00 lbs over ideal weight or BMI > 40) 04/04/2010 04/16/2017 Overview: Per Obesity Protocol, #19 ICD-10 update of inactive term Asthma with severity to be determined 04/03/2010 10/17/2011 Overview: Per Provider Protocol. ICD-10 update of inactive term Asthma in remission 04/03/2010 06/28/20 17 Overview: Per Provider Protocol. Ventral hernia, unspecified, without mention of obstruction or gangrene 09/05/2009 08/15/2017 Benign neoplasm of colon 05/27/200705/2017 Overview: hyperplastic tissue-repeat colonoscopy inm 1 year ADJ DISORDER W/DEPRES MOOD 07/05/2004 1 Pyogenic granuloma 12/19/2002 7 HYPERTENSION NOS 12/16/2002 09/08/2009 Overview: Modified per HTN protocol #16. Malignant neoplasm of cerebral meninges 02/26/2002 08/15/2017 Malignant neoplasm of lower- outer quadrant of female breast 01/19/2001 07/24/2018 Overview: ICD-10 update of inactive term Allergic rhinitis 09/08/2013 Calculus of kidney 7 documented as of this encounter (statuses as of 05/21/2024) Immunizations Name Administration Dates Next Due COVID-19 mRNA, LNP-s, No Pre serve, 2-Dose Series (Pfizer) 05/19/2021,04/28/2021 Covid-19, Mrna, Lnp-s, Pf, B ivalent, 30 Mcg, IM, 12 yrs and above (Pfizer) 06/03/2023 Pneumococcal Conjugate Vacc, 13 Valent (Prevnar) 01/19/2016 Pneumococcal Polysaccharide PPV23 (Pneumovax) 03/03/2013,06/04/2011,07/05/2004 RSV Vac., Bivalent, Perfusio n F, Pf,0.5 Ml (Abrysvo) 12/27/2023 Season Influenza, Quad, PF, Adjuvanted, 65+ Yrs, IM (FLUAD) 08/26/2020 Seasonal Influenza, PF, 6 M & above, IM , (FluLaval or Fluzone) 09/07/2019,07/24/2018 09/07/2020 Seasonal Influenza, Quadriva lent Hd (Fluzone Hd) 08/27/2023 Seasonal Influenza, Quadriva lent, No Preserve, IM 07/27/2016,07/27/2015 Seasonal Influenza, Split, I IV3, With Preserve, Inj 08/03/2014,07/09/2013,07/21/2012,06/22,09/07/2010,07/26/2009,08/04/20 08,09/02/2007 08/03/2015 TDAP, Age 7 and older, IM (Adacel) 06/04/2011 Varicella Zoster Vaccine (Adult) 04/12/2014 Zoster Vaccine Recombinant (Shingrix) 06/03/2023 ,03/20/2022 documented as of this encounter Social History Tobacco Use Types Packs/Day Years Used Date Smoking Tobacco: Never Passive Smoke Exposure: Past Smokeless Tobacco: Never Alcohol Use Standard Drinks/Week Comments Yes 0 (1 standard drink = 0.6 oz pur e alcohol) rarely AUDIT-C Answer Date Recorded Frequency of Alcohol Consumption Never 10/04/2019 Average Number of Drinks Not on file 019 Frequency of Binge Drinking Not on file 09/20 PHQ-2 Answer Date Recorded PHQ Adult Total Score 13 08/20/2023 Hunger Vital Sign Answer Date Recorded Within the past 12 months, y ou worried that your food would run out before you got the money to buy more. Never true 08/27/20 23 Within the past 12 months, t he food you bought just didn't last and you didn't have money to get more. Never true 08/27/2023 Childcare Answer Date Recorded Do you feel overwhelmed with taking care of a child, family member or friend? Yes 08/27/2023 Does your family need help f inding childcare? (Household - for ages 0-17 years) Not on file 08/27/2023 Clothing Answer Date Recorded Have you been unable to get clothing when it was really needed? No 08/27/2023 Is your family able to get c lothes or diapers when needed? (Household - for ages 0-17 years) Not on file 08/27/2023 Personal Safety Answer Date Recorded Do you feel unsafe or have concerns for your saf ety? No 08/27/2023 Do you have concerns for you r family's safety? (Household - for ages 0-17 years) Not on file 08/27/2023 Utilities Answer Date Recorded Do you have trouble paying y our heating, water, or electric bill? No 08/27/2023 Is your family able to pay t he heat, water, or electric bill? (Household - for ages 0-17 years) Not on file 08/27/2023 Does your family have access to good internet? (Household - for ages 0-17 years) Not on file 08/27/2023 Employment Status Answer Date Recorded Are you unemployed or without regular income? No 08/27/2023 Does the household have a re gular source of income? (Household - for ages 0-17 years) Not on file 08/27/2023 Social Connections Answer Date Recorded How often do you feel lonely or isolated from th ose around you? Often 08/27/2023 Financial Resource Strain Answer Date R ecorded Do you have any trouble payi ng for your medications, or do you think you might in the future? No 08/27/2023 Does your family have troubl e paying for medicine? (Household - for ages 0-17 years) Not on file 08/27/2023 Transportation Needs Answer Date Record ed READ ONLY Do you have troubl e getting a ride to medical visits or work? Never True 08/27/2023 Does your family have a hard time getting a ride to doctors visits? (Household - for ages 0-17 years) Not on file 08/27/2023 Has lack of transportation k ept you from medical appointments, meetings, work, or from getting things needed for daily living? Check all that apply. (Adult - for ages 18 years and over) Not on file 08/27/2023 Do you (or your family) have trouble finding or paying for a ride (transportation)? (Household - for ages 0-17 years) Not on file 08/27/2023 Housing Stability Answer Date Recorded Do you currently live in a s helter or have no steady place to sleep at night? No 08/27/2023 READ ONLY Do you think you a re at risk of becoming homeless? No 08/27/2023 Does your family worry about paying for your home or becoming homeless? (Household - for ages 0-17 years) Not on file 1 10/27/2022 Are you homeless or worried that you might be in the future? (Adult - for ages 18 years and over) Not on file Are you (or your family) aden eless or worried that you might be in the future? (Household - for ages 0-17 years) Not on file Food Insecurity Answer Date Recorded Do you need food for this week? No 08/27/2023 Are you able to get enough f ood for your family? (Household - for ages 0-17 years) Not on file 08/27/2023 Does your family need food t his week? (Household - for ages 0-17 years) Not on file 08/27/2023 Do you always have enough fo od for your family? (Household - for ages 0-17 years) Not on file 08/27/2023 Sex and Gender Information Value Date Recorded Sex Assigned at Female 01/24/2019 12:53 PM EDT Gender Identity Female 01/24/2019 12:53 PM EDT Sexual Orientation Straight 01/24/2019 12 :53 PM EDT Job Start Date Occupation Industry Not on file Not on file Not on file documented as of this encounter Miscellaneous Notes * Telephone Encounter - Maricarmen Felipe LPN - 05/21/2024 11:45 AM EDT Spoke with patient. She states someone from [facility] called her and talked her into switching, but she is not happy that she can no longer be seen at our office. I spoke to her about talking with our [facility] rep to discuss any options she might have. She verbalizedunderstanding and agreement to be contacted. Pt's contact information placed on Sterling's desk. * Telephone Encounter - Maricarmen Felipe LPN - 05/21/2024 10:59 AM EDT Left message for patient to call back. * Telephone Encounter - Irina Lambert OSA - 05/18/2024 10:06 AM EDT Maricarmen or Cora, please advise. * Telephone Encounter - Nayeli Edwards DO - 05/08/2024 3:53 PM EDT Can we send letter letting her know this? * Telephone Encounter - Irina Gonzalez OSA - 05/08/2024 3:21 PM EDT Yes she will need new provider due to now having [employer] * Telephone Encounter - Kandy Velez RN - 05/08/2024 3:09 PM EDT I show patient in [facility] as having Termed with [facility] as of 04/19. She will need to change to another PCP? Thanks! documented in this encounter Plan of Treatment Scheduled Procedures Name Priority Associated Diagnoses Date/Ti me COLONOSCOPY FLEXIBLE PROXIMAL DIAGNOSTIC Recall History of colon polyps Health Maintenance Due Date Last Done Comments Colonoscopy 06/21/2020 06/21/2015, 10/2014, 05/09/2010, Additional history exists COVID-19 Vaccine ( season) 2023 06/03/2023, 05/19/2021, 04/28/2021 CKD PHOS USE SMARTSET 72285 01/02/202412/19, 03/20/2022, 09/19/2021, Additional history exists DIG LEVEL FOR MEDICATION MONITORING YEARLY 01/02/2024 01/01/2023, 03/20/2022, 05/04/2020, Additional history exists GFR 05/20/2024 11/20/2023, 08/22, 07/26/2023, Additional history exists HbA1c 05/20/2024 11/20/2023, 05/21, 01/01/2023, Additional history exists Diabetic Foot Exam 06/03/2024 06/03/2023, 05/18/2020 Diabetic Eye Exam 06/10/2024 06/10/2023, , 06/10/2023, Additional history exists Influenza Vaccine (FLU shot) (#1) 2024 08/27/2023, 08/26/2020, 09/07/2019, Additional history exists Albumin/Creatinine Ratio 08/20/2024 023, 03/20/2022, 09/19/2021, Additional history exists Depression Monitoring 08/20/2024 08/20/2023 CKD HGB USE SMARTSET 36741 11/20/202411/20, 11/20/2023, 09/16/2023, Additional history exists DXA Scan 08/29/2025 08/29/2018, 03/21, 04/06/2011 RETIRED - COLONOSCOPY-EVERY 5 YRS AGES 18-100 Discontinued 06/21/2015, 06/21/2015, 05/09/2010, Additional history exists Pneumococcal Vaccine: 65+ Years Completed 01/19/2016, 03/03/2013, 06/04/2011, Additional history exists Zoster Vaccines Completed 06/03/2023, 02/20, 04/12/2014 HPV (Gardasil) Vaccine Aged Out No lo nger eligible based on patient's age to complete this topic Hepatitis B Vaccine Aged Out No longe r eligible based on patient's age to complete this topic MENINGOCOCCAL (MENACTRA/MENVEO) Aged Out No longer eligible based on patient's age to complete this topic documented as of this encounter Medical Devices Not on filedocumented as of this encounter Advance Directives * Full Code (Latest Code Status on File) Date Activated Date Inactivated Comments 12/17/2016 3:08 PM 12/19/2016 4:11 PM Question Answer Comments Discussion of Advance Directives occurred with: Not Discussed Does the patient have a Living Will? No Does the patient have Health Care Power of Attor brandie? No
--- OUTSIDE RECORDS SUMMARY | 2024-08-29 01:40 | External Medical Summary | Summary of Care ---
Author Name Unknown Organization [facility] Address [address] [place] [address] Phone [phone] Care Team Providers Care Special Events Planner Name Role Phone Unavailable Primary Care Provider Unavailabl e Reason for Visit * Reason Onset Date Comments Advice 05/08/2024 Encounter Details Date Type Department Care Team (Late st Contact Info) Description 05/08/2024 Telephone Family Practice [facility] [address] [place] [address] Kandy Velez, RN [address] [place] [address] Advice Allergies Active Allergy Reactions [...] as of this encounter (statuses as of 05/08/2024) Medications Medication Sig Dispensed Refills Start Date [...] placement,Persistent atrial fibrillation (HCC),Coronary artery disease of [place] artery of [place] heart with stable angina pectoris (HCC),Hypertensive heart [...] Tablet Sublingual (Nitrostat)Indicatio ns:Coronary artery disease involving [place] coronary artery of [place] heart without angina pectoris Place 1 Tablet [...] as of this encounter (statuses as of 05/08/2024) Active Problems Problem Noted Date Diagnosed Date [...] incontinence 03/31/2020 Coronary artery disease invo lving [place] coronary artery of [place] heart without angina pectoris 10/12/2019 Hypertensive heart [...] as of this encounter (statuses as of 05/08/2024) Resolved Problems Problem Noted Date Diagnosed Date [...] 05/30/2020 Overview: history History of hysterectomy 05/05/202003/2020 [facility] resident 05/05/20202022 Urinary tract infection without hematuria [...] as of this encounter (statuses as of 05/08/2024) Immunizations Name Administration Dates Next Due COVID-19 [...] encounter Miscellaneous Notes * Telephone Encounter - Nayeli Edwards DO [...] documented in this encounter Plan of Treatment Upcoming Encounters Date Type Department Care Team (Late st Contact Info) Description 05/18/2024 1:00 PM EDT Office Visit Urology, [place] [address] [place] [address] Johann Woods MD [address] [place] [address] Scheduled Procedures Name Priority Associated Diagnoses Date/Ti me COLONOSCOPY FLEXIBLE PROXIMAL DIAGNOSTIC Recall History of colon polyps Health Maintenance Due Date Last Done Comments Colonoscopy 06/21/2020 06/21/2015, 10/2014, 05/09/2010, Additional history exists COVID-19 Vaccine ( season) 2023 06/03/2023, 05/19/2021, 04/28/2021 CKD PHOS USE SMARTSET [id number] 01/02/2024 03/1 01/2023, 03/20/2022, 09/19/2021, Additional history exists DIG LEVEL FOR MEDICATION MONITORING YEARLY 01/02/2024 01/01/2023, 03/20/2022, 05/04/2020, Additional history exists *SPIROMETRY ONCE FOR ASTHMA-ADULT 05/03/2024 GFR 05/20/2024 11/20/2023, 08/22, 07/26/2023, Additional history exists HbA1c 05/20/2024 11/20/2023, 05/21, 01/01/2023, Additional history exists Diabetic Foot Exam 06/03/2024 06/03/2023, 05/18/2020 Diabetic Eye Exam 06/10/2024 06/10/2023, , 06/10/2023, Additional history exists Influenza Vaccine (FLU shot) (#1) 2024 08/27/2023, 08/26/2020, 09/07/2019, Additional history exists Albumin/Creatinine Ratio 08/20/2024 023, 03/20/2022, 09/19/2021, Additional history exists Depression Monitoring 08/20/2024 08/20/2023 CKD HGB USE SMARTSET 54568 11/20/202411/20, 11/20/2023, 09/16/2023, Additional history exists DXA Scan 08/29/2025 08/29/2018, 03/21, 04/06/2011 RETIRED - COLONOSCOPY-EVERY 5 YRS AGES 18-100 Discontinued 06/21/2015, 06/21/2015, 05/09/2010, Additional history exists Pneumococcal Vaccine: 65+ Years Completed 01/19/2016, 03/03/2013, 06/04/2011, Additional history exists Zoster Vaccines Completed 06/03/2023, 02/20, 04/12/2014 *BASELINE EKG FOR HTN Completed 10/17/2023 , 08/20/2023, 06/03/2023, Additional history exists HPV (Gardasil) Vaccine Aged Out No lo [...]
--- OUTSIDE RECORDS SUMMARY | 2024-08-29 01:40 | External Medical Summary | Summary of Care ---
Author Name Unknown Organization [facility] Address [address] [place] [address] Phone [phone] Care Team Providers Care Project Facilitator Name Role Phone Unavailable Primary Care Provider Unavailabl e Reason for Visit * Reason Onset Date Comments Advice 05/08/2024 Encounter Details Date Type Department Care Team (Late st Contact Info) Description 05/08/2024 Telephone Family Practice 65 [facility] [address] [place] [address] Kandy Velez, RN [address] [place] [address] Advice Allergies Active Allergy Reactions [...] placement,Persistent atrial fibrillation (HCC),Coronary artery disease of [place] artery of [place] heart with stable angina pectoris (HCC),Hypertensive heart [...] Tablet Sublingual (Nitrostat)Indicatio ns:Coronary artery disease involving [place] coronary artery of [place] heart without angina pectoris Place 1 Tablet [...] incontinence 03/31/2020 Coronary artery disease invo lving [place] coronary artery of [place] heart without angina pectoris 10/12/2019 Hypertensive heart [...] 05/30/2020 Overview: history History of hysterectomy 05/05/202003/2020 senior living resident 05/05/20202022 Urinary tract infection without hematuria [...] to call back. * Telephone Encounter - Irian Lambert OSA - 05/18/2024 10:06 AM EDT [...] 06/03/2023, 05/19/2021, 04/28/2021 CKD PHOS USE SMARTSET 97084 01/02/202412/19, 03/20/2022, 09/19/2021, Additional history exists DIG [...] Monitoring 08/20/2024 08/20/2023 CKD HGB USE SMARTSET [id number] 11/20/202411/20, 11/20/2023, 09/16/2023, Additional history exists DXA [...]
--- OUTSIDE RECORDS SUMMARY | 2024-08-29 01:40 | External Medical Summary | Summary of Care ---
Author Name Unknown Organization [facility] Address [address] [place] [address] Phone [phone] Care Team Providers Care Rear Load Truck Driver Name Role Phone Unavailable Primary Care Provider Unavailabl e Reason for Visit * Reason Onset Date Comments Advice 05/08/2024 Encounter Details Date Type Department Care Team (Late st Contact Info) Description 05/08/2024 Telephone Family Practice 65 [facility] [address] [place] [address] Kandy Velez, RN [address] [place] [address] Advice Allergies Active Allergy Reactions [...] as of this encounter (statuses as of 05/18/2024) Medications Medication Sig Dispensed Refills Start Date [...] placement,Persistent atrial fibrillation (HCC),Coronary artery disease of [place] artery of [place] heart with stable angina pectoris (HCC),Hypertensive heart [...] Tablet Sublingual (Nitrostat)Indicatio ns:Coronary artery disease involving [place] coronary artery of [place] heart without angina pectoris Place 1 Tablet [...] as of this encounter (statuses as of 05/18/2024) Active Problems Problem Noted Date Diagnosed Date [...] incontinence 03/31/2020 Coronary artery disease invo lving [place] coronary artery of [place] heart without angina pectoris 10/12/2019 Hypertensive heart [...] as of this encounter (statuses as of 05/18/2024) Resolved Problems Problem Noted Date Diagnosed Date [...] 05/30/2020 Overview: history History of hysterectomy 05/05/202003/2020 half-way resident 05/05/20202022 Urinary tract infection without hematuria [...] as of this encounter (statuses as of 05/18/2024) Immunizations Name Administration Dates Next Due COVID-19 [...] encounter Miscellaneous Notes * Telephone Encounter - Irina Lambert OSA [...] 05/18/2024 1:00 PM EDT Office Visit Urology, [place] [address] [place] [address] Johann Woods MD [address] [place] [address] Scheduled Procedures Name Priority Associated Diagnoses Date/Ti me COLONOSCOPY FLEXIBLE PROXIMAL DIAGNOSTIC Recall History of colon polyps Health Maintenance Due Date Last Done Comments Colonoscopy 06/21/2020 06/21/2015, 09/0 10/2014, 05/09/2010, Additional history exists COVID-19 Vaccine (2022- season) 2023 06/03/2023, 05/19/2021, 04/28/2021 CKD PHOS USE SMARTSET 50608 01/02/202412/19, 03/20/2022, 09/19/2021, Additional history exists DIG [...] Monitoring 08/20/2024 08/20/2023 CKD HGB USE SMARTSET [id number] 11/20/202411/20, 11/20/2023, 09/16/2023, Additional history exists DXA [...]
--- OUTSIDE RECORDS SUMMARY | 2024-08-29 01:40 | External Medical Summary | Summary of Care ---
Author Name Unknown Organization [facility] Address [address] [place] [address] Phone [phone] Care Team Providers Care Manager Credit Risk Name Role Phone Unavailable Primary Care Provider Unavailabl e Reason for Visit * Reason Onset Date Comments Advice 05/08/2024 Encounter Details Date Type Department Care Team (Late st Contact Info) Description 05/08/2024 Telephone Family Practice [address] [facility] [address] [place] [address] Kandy Velez, RN [address] [place] [address] Advice Allergies Active Allergy Reactions [...] placement,Persistent atrial fibrillation (HCC),Coronary artery disease of [place] artery of [place] heart with stable angina pectoris (HCC),Hypertensive heart [...] Tablet Sublingual (Nitrostat)Indicatio ns:Coronary artery disease involving [place] coronary artery of [place] heart without angina pectoris Place 1 Tablet [...] incontinence 03/31/2020 Coronary artery disease invo lving [place] coronary artery of [place] heart without angina pectoris 10/12/2019 Hypertensive heart [...] 05/30/2020 Overview: history History of hysterectomy 05/05/202003/2020 care home resident 05/05/20202022 Urinary tract infection without hematuria [...] 05/18/2024 1:00 PM EDT Office Visit Urology, [place] [address] [place] [address] Johann Woods MD [address] [place] [address] Scheduled Procedures Name Priority Associated Diagnoses Date/Ti me COLONOSCOPY FLEXIBLE PROXIMAL DIAGNOSTIC Recall History of colon polyps Health Maintenance Due Date Last Done Comments Colonoscopy 06/21/2020 06/21/2015, 10/2014, 05/09/2010, Additional history exists COVID-19 Vaccine ( season) 2023 06/03/2023, 05/19/2021, 04/28/2021 CKD PHOS USE SMARTSET 56377 01/02/2024 03/1 01/2023, 03/20/2022, 09/19/2021, Additional history [...] Monitoring 08/20/2024 08/20/2023 CKD HGB USE SMARTSET [id number] 11/20/202411/20, 11/20/2023, 09/16/2023, Additional history exists DXA [...]
[2024-08-29 01:41] LABS: Hematocrit (blood only) 43.8 % (37.0-47.0); Hemoglobin 14.6 g/dl (12.0-16.0); Mean Corpuscular Hemoglobin 28.6 pg (25.0-34.0); Mean Corpuscular Hgb Conc 33.3 g/dL (32.0-36.0); Mean Corpuscular Volume 85.7 fL (80.0-100.0); Mean Platelet Volume 11.5 fL (9.4-12.4); Platelet Count 256 K/uL (130-400); RDW Standard Deviation 46.8 fL (36.4-46.3); Red Blood Count 5.11 M/uL (4.20-5.40); White Blood Count 6.74 K/ul (4.8-10.8)
--- OUTSIDE RECORDS SUMMARY | 2024-08-29 01:41 | External Medical Summary | Summary of Care ---
Author Name Unknown Organization [facility] Address [address] [facility] [place] [address] Phone [phone] Care Team Providers Care Dumper Mold Cleaner Name Role Phone Nayeli Tsai DO Primary Care Provider [phone] Reason for Visit * Reason Onset Date Comments FYI 05/06/2024 Annual mammogram Encounter Details Date Type Department Care Team (Late st Contact Info) Description 05/06/2024 Telephone Family Practice 65 [facility] [place] [address] [place] [phone] Nayeli Tsai DO [address] [place], [place] [phone] FYI (Annual mammogram) Allergies Active Allergy Reactions Criticality Noted Date Comments Kole Inhibitors Cough Medium 11/21/2011 Adhesive Tape 12/16/2002 [...] as of this encounter (statuses as of 05/06/2024) Medications Medication Sig Dispensed Refills Start Date [...] placement,Persistent atrial fibrillation (HCC),Coronary artery disease of [place] artery of [place] heart with stable angina pectoris (HCC),Hypertensive heart [...] Tablet Sublingual (Nitrostat)Indicatio ns:Coronary artery disease involving [place] coronary artery of [place] heart without angina pectoris Place 1 Tablet [...] as of this encounter (statuses as of 05/06/2024) Active Problems Problem Noted Date Diagnosed Date [...] incontinence 03/31/2020 Coronary artery disease invo lving [place] coronary artery of [place] heart without angina pectoris 10/12/2019 Hypertensive heart disease w ith chronic diastolic congestive heart failure 09/18/2019 Mood disorder 09/18/2019 Persistent atrial fibrillation 07/23/2019 Moderate persistent asthma without complication 07/23/2019 Methylenetetrahydrofolate reductase deficiency 1 History of DVT (deep vein thrombosis) 06/28/2017 Left SNHL 01/17/2017 History of lumbar laminectomy for spinal cord de compression 03/11/2015 Actinic keratosis 11/19/2013 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 GENERAL OSTEOARTHROSIS documented as of this encounter (statuses as of 05/06/2024) Resolved Problems Problem Noted Date Diagnosed Date [...] 05/05/2020 05/30/2020 Overview: history History of hysterectomy 05/05/2020 11/0 03/2020 shelter resident 05/05/20202022 Urinary tract infection without hematuria [...] HYPERTENSION NOS 12/16/2002 09/08/2009 Overview: Modified per [facility] protocol #16. Malignant neoplasm of cerebral meninges 02/26/2002 08/15/2017 Malignant neoplasm of lower- outer quadrant of female breast 01/19/2001 07/24/2018 Overview: ICD-10 update of inactive term Allergic rhinitis 09/08/2013 Calculus of kidney 7 documented as of this encounter (statuses as of 05/06/2024) Immunizations Name Administration Dates Next Due COVID-19 [...] as of this encounter Miscellaneous Notes * Addendum Note - Nayeli Tsai DO - 05/06/2024 10:40 AM EDTAddended by: NAYELI TSAI on: 05/06/2024 10:40 AM Modules accepted: Orders * Telephone Encounter - Nayeli Tsai DO - 05/06/2024 10:39 AM EDT Order signed. Agree with certified letter. help desk coordinator, please reach out to pt to schedule as she has cancelled last several visits. Looks likeshe states it is related to insurance? Please clarify what is going on. * Addendum Note - Ghada Calhoun LPN - 05/06/2024 9:42 AM EDTAddended by: GHADA CALHOUN on: 05/06/2024 09:42 AM Modules accepted: Orders * Telephone Encounter - Rosa Maria Lovelace OSA - 05/06/2024 9:09 AM EDT FYI, patient is due for her annual screening mammogram. Due to not No Showing her 6 month follow up, this would be a diagnostic follow up of the left breast as well. Several unsuccessful attempts have been made to contact patient to schedule. Certified letter mailed to home address documented in this encounter Plan of Treatment Upcoming Encounters Date Type Department Care Team (Late st Contact Info) Description 05/18/2024 1:00 PM EDT Office Visit Urology, [place] [address] [place] [address] Johann Woods MD [address] [place] [address] Scheduled Orders Name Type Priority Associated Diagnoses Orde r Schedule MAMMOGRAM DIAGNOSTIC LEFT Medical Imaging Routine Abnormal mammogram Expected: 05/07/2024, Expires: 06/06/2025 Scheduled Procedures Name Priority Associated Diagnoses Date/Ti me COLONOSCOPY FLEXIBLE PROXIMAL DIAGNOSTIC Recall History of colon polyps Health Maintenance Due Date Last Done Comments Colonoscopy 06/21/2020 06/21/2015, 10/2014, 05/09/2010, Additional history exists COVID-19 Vaccine ( season) 2023 06/03/2023, 05/19/2021, 04/28/2021 CKD PHOS USE SMARTSET [id number] 01/02/202412/19, 03/20/2022, 09/19/2021, Additional history exists DIG [...] Monitoring 08/20/2024 08/20/2023 CKD HGB USE SMARTSET 23975 11/20/202411/20, 11/20/2023, 09/16/2023, Additional history exists DXA [...] Not on filedocumented as of this encounter Visit Diagnoses Diagnosis Abnormal mammogram- Primary Abnormal mammogram, unspecified documented in this encounter Advance Directives * Full Code (Latest Code Status on File) Date Activated Date Inactivated Comments 12/17/2016 3:08 PM 12/19/2016 4:11 PM Question Answer Comments Discussion of Advance Directives occurred with: Not Discussed Does the patient have a Living Will? No Does the patient have Health Care Power of Attor brandie? No Care Teams Dumper Mold Cleaner Relationship Specialty Start Date End Date Nayeli Tsai DO PCP - General Family Medicine 06/03/23 documented as of this encounter
--- OUTSIDE RECORDS SUMMARY | 2024-08-29 01:41 | External Medical Summary | Summary of Care ---
Author Name Unknown Organization [facility] Address [address] [facility] [place] [address] Phone [phone] Care Team Providers Care X Ray Inspector Name Role Phone Nayeli Edwards DO Primary Care Provider [phone] Reason for Visit * Reason Onset Date Comments FYI 05/06/2024 Annual mammogram Encounter Details Date Type Department Care Team (Late st Contact Info) Description 05/06/2024 Telephone Family Practice 65 [facility] [place] [address] [place] [phone] Nayeli Edwards DO [address] [place], [place] [phone] FYI (Annual mammogram) Allergies Active Allergy Reactions [...] placement,Persistent atrial fibrillation (HCC),Coronary artery disease of [place] artery of [place] heart with stable angina pectoris (HCC),Hypertensive heart [...] Tablet Sublingual (Nitrostat)Indicatio ns:Coronary artery disease involving [place] coronary artery of [place] heart without angina pectoris Place 1 Tablet [...] incontinence 03/31/2020 Coronary artery disease invo lving [place] coronary artery of [place] heart without angina pectoris 10/12/2019 Hypertensive heart [...] history History of hysterectomy 05/05/2020 11/0 03/2020 senior living resident 05/05/20202022 Urinary tract infection [...] HYPERTENSION NOS 12/16/2002 09/08/2009 Overview: Modified per [facility] protocol #16. Malignant neoplasm of cerebral meninges [...] encounter Miscellaneous Notes * Addendum Note - Ghada Calhoun LPN [...] 05/18/2024 1:00 PM EDT Office Visit Urology, [place] [address] [place] [address] Johann Woods MD [address] [place] [address] Scheduled Procedures Name Priority Associated Diagnoses Date/Ti me COLONOSCOPY FLEXIBLE PROXIMAL DIAGNOSTIC Recall History of colon polyps Health Maintenance Due Date Last Done Comments Colonoscopy 06/21/2020 06/21/2015, 10/2014, 05/09/2010, Additional history exists COVID-19 Vaccine ( season) 2023 06/03/2023, 05/19/2021, 04/28/2021 CKD PHOS USE SMARTSET 44024 01/02/202412/19, 03/20/2022, 09/19/2021, Additional history exists DIG [...] Monitoring 08/20/2024 08/20/2023 CKD HGB USE SMARTSET [id number] 11/20/202411/20, 11/20/2023, 09/16/2023, Additional history exists DXA [...] Power of Attor brandie? No Care Teams X Ray Inspector Relationship Specialty Start Date End Date Nayeli Edwards DO PCP - General Family Medicine 06/03/23 documented as of this encounter
--- OUTSIDE RECORDS SUMMARY | 2024-08-29 01:41 | External Medical Summary | Summary of Care ---
Author Name Unknown Organization [facility] Address [address] [facility] [place] [address] Phone [phone] Care Team Providers Care Production Line Welder Name Role Phone Nayeli Edwards DO Primary Care Provider [phone] Reason for Visit * Reason Onset Date Comments FYI 05/06/2024 Annual mammogram Encounter Details Date Type Department Care Team (Late st Contact Info) Description 05/06/2024 Telephone Family Practice 65 [facility] [place] [address] [place] [phone] Nayeli Edwards DO [address] [place], [place] [phone] FYI (Annual mammogram) Allergies Active Allergy Reactions [...] history History of hysterectomy 05/05/2020 11/0 03/2020 correction resident 05/05/20202022 Urinary tract infection without [...] Valent (Prevnar) 01/19/2016 Pneumococcal Polysaccharide PPV23 (Pneumovax) 03/03/2013,06/04/2011 RSV Vac., Bivalent, Perfusio n F, Pf,0.5 [...] encounter Miscellaneous Notes * Telephone Encounter - Rosa Maria Lovelace [...] 05/18/2024 1:00 PM EDT Office Visit Urology, [place] [address] [place] [address] Johann Woods MD [address] [place] [address] Scheduled Procedures Name Priority Associated Diagnoses Date/Ti me COLONOSCOPY FLEXIBLE PROXIMAL DIAGNOSTIC Recall History of colon polyps Health Maintenance Due Date Last Done Comments Colonoscopy 06/21/2020 06/21/2015, 10/2014, 05/09/2010, Additional history exists COVID-19 Vaccine ( season) 2023 06/03/2023, 05/19/2021, 04/28/2021 CKD PHOS USE SMARTSET [id number] 01/02/202412/19, 03/20/2022, 09/19/2021, Additional history exists DIG LEVEL FOR MEDICATION MONITORING YEARLY 01/02/2024 01/01/2023, 03/20/2022, 05/04/2020, Additional history exists *SPIROMETRY ONCE FOR ASTHMA-ADULT 05/03/2024 GFR 05/20/2024 11/20/2023, 11/04/2023, 07/26/2023, Additional history exists HbA1c 05/20/2024 11/20/2023, 05/21, 01/01/2023, Additional history exists Diabetic Foot Exam 06/03/2024 06/03/2023, 05/18/2020 Diabetic Eye Exam 06/10/2024 06/10/2023, , 06/10/2023, Additional history exists Influenza Vaccine (FLU shot) (#1) 2024 08/27/2023, 08/26/2020, 09/07/2019, Additional history exists Albumin/Creatinine Ratio 08/20/2024 023, 03/20/2022, 09/19/2021, Additional history exists Depression Monitoring 08/20/2024 08/20/2023 CKD HGB USE SMARTSET [id number] 11/20/202411/20, 11/20/2023, 09/16/2023, Additional history exists DXA [...] Power of Attor brandie? No Care Teams Production Line Welder Relationship Specialty Start Date End Date Nayeli Edwards DO PCP - General Family Medicine 06/03/23 documented as of this encounter
--- OUTSIDE RECORDS SUMMARY | 2024-08-29 01:41 | External Medical Summary | Summary of Care ---
Author Name Unknown Organization [facility] Address [address] [facility] [address] Phone [phone] Care Team Providers Care Ssis Etl Developer Name Role Phone Nayeli Edwards DO Primary Care Provider [phone] Reason for Visit * Reason Onset Date Comments Encounter Created in Error 05/07/2024 Encounter Details Date Type Department Care Team (Late st Contact Info) Description 05/07/2024 Telephone Family Practice 65 [facility] [place] [address] [place] [phone] Nayeli Edwards DO [address] [place] [address] Encounter Created in Error Allergies Active Allergy Reactions Criticality Noted Date [...] as of this encounter (statuses as of 05/07/2024) Medications Medication Sig Dispensed Refills Start Date [...] placement,Persistent atrial fibrillation (HCC),Coronary artery disease of [place] artery of [place] heart with stable angina pectoris (HCC),Hypertensive heart [...] Tablet Sublingual (Nitrostat)Indicatio ns:Coronary artery disease involving [place] coronary artery of [place] heart without angina pectoris Place 1 Tablet [...] as of this encounter (statuses as of 05/07/2024) Active Problems Problem Noted Date Diagnosed Date [...] incontinence 03/31/2020 Coronary artery disease invo lving [place] coronary artery of [place] heart without angina pectoris 10/12/2019 Hypertensive heart [...] as of this encounter (statuses as of 05/07/2024) Resolved Problems Problem Noted Date Diagnosed Date [...] 05/30/2020 Overview: history History of hysterectomy 05/05/2020 11/03/2020 halfway resident 05/05/20202022 Urinary tract infection without hematuria [...] HYPERTENSION NOS 12/16/2002 09/08/2009 Overview: Modified per [facility] protocol #16. Malignant neoplasm of cerebral meninges 02/26/2002 08/15/2017 Malignant neoplasm of lower- outer quadrant of female breast 01/19/2001 07/24/2018 Overview: ICD-10 update of inactive term Allergic rhinitis 09/08/2013 Calculus of kidney 7 documented as of this encounter (statuses as of 05/07/2024) Immunizations Name Administration Dates Next Due COVID-19 [...] on file documented as of this encounter Plan of Treatment Upcoming Encounters Date Type Department Care Team (Late st Contact Info) Description 05/18/2024 1:00 PM EDT Office Visit Urology, [place] [address] [place] [address] Johann Woods MD [address] [place] [address] Scheduled Procedures Name Priority Associated Diagnoses Date/Ti me COLONOSCOPY FLEXIBLE PROXIMAL DIAGNOSTIC Recall History of colon polyps Health Maintenance Due Date Last Done Comments Colonoscopy 06/21/2020 06/21/2015, 10/2014, 05/09/2010, Additional history exists COVID-19 Vaccine ( season) 2023 06/03/2023, 05/19/2021, 04/28/2021 CKD PHOS USE SMARTSET 60236 01/02/202412/19, 03/20/2022, 09/19/2021, Additional history exists DIG [...] Monitoring 08/20/2024 08/20/2023 CKD HGB USE SMARTSET [id number] 11/20/202411/20, 11/20/2023, 09/16/2023, Additional history exists DXA [...] Power of Attor brandie? No Care Teams Ssis Etl Developer Relationship Specialty Start Date End Date Nayeli Edwards DO [address] [place] [address] PCP - General Family Medicine 05/06/24 documented as of this encounter
--- OUTSIDE RECORDS SUMMARY | 2024-08-29 01:41 | External Medical Summary | Summary of Care ---
Author Name Unknown Organization [facility] Address [address] [facility] [place] [address] Phone [phone] Care Team Providers Care Air Shovel Operator Name Role Phone Nayeli Tsai DO Primary Care Provider [phone] Reason for Visit * Reason Onset Date Comments Medication Refill 04/13/2024 Encounter Details Date Type Department Care Team (Late st Contact Info) Description 04/13/2024 Refill Family Practice [address], [place] [address] [place] [address] Nayeli Tsai DO [address] [place], [place] [phone] Persistent atrial fibrillation (HCC); HTN, goal below 140/90 Allergies Active Allergy Reactions Criticality Noted Date [...] as of this encounter (statuses as of 04/14/2024) Medications Medication Sig Dispensed Refills Start Date End Date Status Atorvastatin Calcium 80 MG Oral Tablet (Lipitor)Indication s:Mixed hyperlipidemia Take 1 Tablet by mouth in the morning. 30 Tablet 06/27/2023 Active busPIRone HCl 15 MG Oral Tablet (Buspar)Indications :Stress at home Take 1 Tablet by mouth in the morning and 1 Tablet before bedtime. 60 Tablet 06/27/2023 Active Clopidogrel Bisulfate 75 MG Oral Tablet (pLAVix)Indications :S/P drug eluting coronary stent placement Take 1 Tablet by mouth in the morning. 30 Tablet 06/27/2023 Active Digoxin 125 MCG Oral Tablet (Lanoxin)Indication s:S/P drug eluting coronary stent placement,Persisten t atrial fibrillation (HCC),Coronary artery disease of [place] artery of [place] heart with stable angina pectoris (HCC),Hypertensive heart disease with chronic diastolic congestive heart failure (HCC) TAKE ONE TABLET BY MOUTH IN THE MORNING ON SATURDAY, SATURDAY AND SATURDAY 12 Tablet 06/27/2023 Active Apixaban 5 MG Oral Tablet (Eliquis)Indication s:Persistent atrial fibrillation (HCC) Take 1 Tablet by [...] 06/27/2023 Active Spironolactone 25 MG Oral Tablet (Aldactone)Indicati ons:Hypertensive heart disease with chronic diastolic congestive heart failure (HCC) Take 1 Tablet by mouth in the morning. 30 Tablet 06/27/2023 Active Vitamin D 25 MCG (1000 UT) Oral Tablet Take 1 Tablet by mouth in the morning. 30 Tablet 06/27/2023 Active guaiFENesin ER 600 MG Oral Tablet Extended Release 12 Hour (Mucinex)Indication s:Viral upper respiratory tract infection Take 1 Tablet by mouth in the morning and 1 Tablet before bedtime. Take with plenty of water. Do not cut, crush or chew. 40 Tablet 2 08/09/2023 Active Additional Information Patient not taking.Reported on 10/17/2023 Nitroglycerin 0.4 MG Sublingual Tablet Sublingual (Nitrostat)Indicati ons:Coronary artery disease involving [place] coronary artery of [place] heart without angina pectoris Place 1 Tablet [...] Oral Tablet Extended Release 24 Hour (toPROL XL)Indications:Pers istent atrial fibrillation (HCC),HTN, goal below 140/90 Metoprolol ER 1.5 tablets in the morning and 1 tablet in the evening. Has been taking one tab in am and one tab in pm 225 Tablet 1 04/14/2024 Active Metoprolol Succinate ER 50 MG Oral Tablet Extended Release 24 Hour (toPROL XL)Indications:Pers istent atrial fibrillation (HCC),HTN, goal below 140/90 Metoprolol ER 1.5 tablets in the morning and 1 tablet in the evening. Has been taking one tab in am and one tab in pm 225 Tablet 1 11/20/2023 Discontinu ed(Refill) Hospital, Clinic, or Other Facility Administered Medication Ordered Dose Route Frequency Start Date End Date Status Albuterol Sulfate (Proventil) (2.5 MG/3ML) 0.083% inhalation solution 2.5 mgIndications:Tachycard ia,CARRASCO (dyspnea on exertion) 2.5 mg NEBULIZER ONCE PRN 12/27/2023 12/26/2024 Active documented as of this encounter (statuses as of 04/14/2024) Active Problems Problem Noted Date Diagnosed Date [...] incontinence 03/31/2020 Coronary artery disease invo lving [place] coronary artery of [place] heart without angina pectoris 10/12/2019 Hypertensive heart [...] as of this encounter (statuses as of 04/14/2024) Resolved Problems Problem Noted Date Diagnosed Date [...] 05/30/2020 Overview: history History of hysterectomy 05/05/202003/2020 halfway resident 05/05/20202022 Urinary tract infection without [...] of 39.0 to 39.9 in adult 07/23/2019 Overview: Body Mass Index: 34.00 kg/mAbnormal 1.575 [...] as of this encounter (statuses as of 04/14/2024) Immunizations Name Administration Dates Next Due COVID-19 [...] Miscellaneous Notes * Telephone Encounter - Nayeli Tsai DO - 04/14/2024 10:11 AM EDTSigned Prescriptions: Disp Refills Metoprolol Succinate ER 50 MG Oral Tablet *225 Ta*1 Sig: Metoprolol ER 1.5 tablets in the morning and 1 tablet in the evening. Has been taking one tab in am and one tab in pm Authorizing Provider: NAYELI TSAI * Telephone Encounter - [place] Michaud [facility] - 04/14/2024 9:53 AM EDT Pending Prescriptions: Disp Refills Metoprolol Succinate ER 50 MG Oral Tablet *225 Ta*1 Sig: Metoprolol ER 1.5 tablets in the morning and 1 tablet in the evening. Has been taking one tab in am and one tab in pm * Telephone Encounter - [place] Michaud RPh - 04/14/2024 9:53 AM EDT Metoprolol ER 1.5 tablets in the morning and 1 tablet in the evening. Has been taking one tab in amand one tab in pm Please advise. [place] Soler PharmD Clinical Pharmacist [facility] [phone] 04/14/2024,9:53 AM * Telephone Encounter - Aury Mckeon PHARM Tech - 04/13/2024 1:05 PM EDT Did you pend patient's preferred pharmacy and medication before forwarding?yes Pharmacy: [facility] [address] Pending Prescriptions: Disp Refills Metoprolol Succinate ER 50 MG Oral Tablet*225 Ta*1 Sig: Metoprolol ER 1.5 tablets in the morning and 1 tablet in the evening. Has been taking one tab in am and one tab in pm Last Visit: 12/27/2023 (in office), 07/12/2023 (telemedicine) Next Visit: 04/28/2024 If no future appointments scheduled, and last appointment is greater than a year ago, please schedule patient for a follow-up appointment Last date the medication was ordered: 11/20 Is this request for a controlled substance?No Urine Drug Screen:No results found. However, due to the size of the patient record, not all encounters were searched. Please check Results Review for a complete set of results. Patient Phone Numbers Labs: Lab Results Component Value Date/Time CREAT 1.4 (H) 11/20/2023 11:27 AM CREAT 0.96 05/25/2021 12:00 AM CREAT 1.0 11/04/2020 12:04 PM POTASSIUM 4.5 11/20/2023 11:27 AM POTASSIUM 3.8 05/25/2021 12:00 AM POTASSIUM 4.4 11/04/2020 12:04 PM TSH 3.81 11/20/2023 11:27 AM TSH 2.38 11/04/2020 12:04 PM LDLCALC 89 06/04/2023 01:29 PM LDLCALC 78 05/04/2020 06:58 AM LDLDIRECT 102 03/20/2022 02:29 PM LDLDIRECT 83 12/16/2019 09:38 AM ALT 13 09/16/2023 02:41 PM ALT 10 09/19/2022 09:00 AM ALT 25 05/04/2020 06:58 AM HGBA1C 6.4 (H) 11/20/2023 11:27 AM HGBA1C 6.0 (A) 12/14/2020 12:00 AM HGBA1C 6.2 (H) 06/13/2020 12:30 PM documented in this encounter Plan of Treatment Upcoming Encounters Date Type Department Care Team (Late st Contact Info) Description 04/28/2024 3:40 PM EDT Office Visit Family Practice [address] [facility] [address] [place] [address] Nayeli Tsai DO [address] [place] [address] 05/05/2024 1:00 PM EDT Appointment Cardiac Studies 1st Fl, [facility] [place] [address] [place] [address] 05/18/2024 12:15 PM EDT Appointment Radiology, [place] [address] [place], [place] [id number] 05/18/2024 1:00 PM EDT Office Visit Urology, [place] [address] [place], [place] [phone] Johann Woods MD [address] [place], [place] [phone] Scheduled Procedures Name Priority Associated Diagnoses Date/Ti me COLONOSCOPY FLEXIBLE PROXIMAL DIAGNOSTIC Recall History of colon polyps Health Maintenance Due Date Last Done Comments Colonoscopy 06/21/2020 06/21/2015, 09/0 10/2014, 05/09/2010, Additional history exists COVID-19 Vaccine (2022- season) 2023 06/03/2023, 05/19/2021, 04/28/2021 CKD PHOS USE SMARTSET 69987 01/02/202412/19, 03/20/2022, 09/19/2021, Additional history exists DIG LEVEL FOR MEDICATION MONITORING YEARLY 01/02/2024 01/01/2023, 03/20/2022, 05/04/2020, Additional history exists GFR 05/20/2024 11/20/2023, 08/22, 07/26/2023, Additional history exists HbA1c 05/20/2024 11/20/2023, 05/21, 01/01/2023, Additional history exists Diabetic Foot Exam 06/03/2024 06/03/2023, 05/18/2020 Diabetic Eye Exam 06/10/2024 06/10/2023, , 06/10/2023, Additional history exists Albumin/Creatinine Ratio 08/20/2024 023, 03/20/2022, 09/19/2021, Additional history exists Depression Monitoring 08/20/2024 08/20/2023 CKD HGB USE SMARTSET 42971 11/20/202411/20, 11/20/2023, 09/16/2023, Additional history exists DXA Scan 08/29/2025 08/29/2018, 03/21, 04/06/2011 RETIRED - COLONOSCOPY-EVERY 5 YRS AGES 18-100 Discontinued 06/21/2015, 06/21/2015, 05/09/2010, Additional history exists Pneumococcal Vaccine: 65+ Years Completed 01/19/2016, 03/03/2013, 06/04/2011, Additional history exists Zoster Vaccines Completed 06/03/2023, 02/20, 04/12/2014 Influenza Vaccine (FLU shot) Completed 08/27/2023, 08/26/2020, 09/07/2019, Additional history exists GARDASIL-HPV IMMUNIZATION SERIES Aged Out No longer eligible based on patient's age to complete this topic Hepatitis B Aged Out No longer eligi ble based on patient's age to complete this topic MENINGOCOCCAL (MENACTRA/MENVEO) Aged Out No longer eligible based on patient's age to complete this topic documented as of this encounter Medical Devices Not on filedocumented as of this encounter Visit Diagnoses Diagnosis Persistent atrial fibrillation (HCC) Atrial fibrillation HTN, goal below 140/90 Unspecified essential hypertension documented in this encounter Advance Directives * Full Code (Latest Code Status on File) Date Activated Date Inactivated Comments 12/17/2016 3:08 PM 12/19/2016 4:11 PM Question Answer Comments Discussion of Advance Directives occurred with: Not Discussed Does the patient have a Living Will? No Does the patient have Health Care Power of Attor brandie? No Care Teams Air Shovel Operator Relationship Specialty Start Date End Date Nayeli Tsai DO PCP - General Family Medicine 06/03/23 documented as of this encounter
--- OUTSIDE RECORDS SUMMARY | 2024-08-29 01:41 | External Medical Summary | Summary of Care ---
Author Name Unknown Organization [facility] Address [address] [facility] [place] [address] Phone [phone] Care Team Providers Care Aerospace Control And Warning Systems Name Role Phone Nayeli Edwards DO Primary Care Provider [phone] Reason for Visit * Reason Onset Date Comments FYI 05/06/2024 Annual mammogram Encounter Details Date Type Department Care Team (Late st Contact Info) Description 05/06/2024 Telephone Family Practice [address] [facility] [place] [address] [place] [phone] Nayeli Edwards DO [address] [place], [place] [phone] FYI (Annual mammogram) Allergies Active Allergy Reactions Criticality Noted Date Comments Koel Inhibitors Cough Medium 11/21/2011 Adhesive Tape 12/16/2002 [...] placement,Persistent atrial fibrillation (HCC),Coronary artery disease of [place] artery of [place] heart with stable angina pectoris (HCC),Hypertensive heart [...] Tablet Sublingual (Nitrostat)Indicatio ns:Coronary artery disease involving [place] coronary artery of [place] heart without angina pectoris Place 1 Tablet [...] incontinence 03/31/2020 Coronary artery disease invo lving [place] coronary artery of [place] heart without angina pectoris 10/12/2019 Hypertensive heart [...] history History of hysterectomy 05/05/2020 11/0 03/2020 care home resident 05/05/20202022 Urinary tract infection [...] 05/18/2024 1:00 PM EDT Office Visit Urology, [place] [address] [place] [address] Johann Woods MD [address] [place] [address] Scheduled Procedures Name Priority Associated Diagnoses Date/Ti me COLONOSCOPY FLEXIBLE PROXIMAL DIAGNOSTIC Recall History of colon polyps Health Maintenance Due Date Last Done Comments Colonoscopy 06/21/2020 06/21/2015, 10/2014, 05/09/2010, Additional history exists COVID-19 Vaccine ( season) 2023 06/03/2023, 05/19/2021, 04/28/2021 CKD PHOS USE SMARTSET 43979 01/02/202412/19, 03/20/2022, 09/19/2021, Additional history exists DIG [...] Monitoring 08/20/2024 08/20/2023 CKD HGB USE SMARTSET 67299 11/20/202411/20, 11/20/2023, 09/16/2023, Additional history exists DXA [...] Power of Attor brandie? No Care Teams Aerospace Control And Warning Systems Relationship Specialty Start Date End Date Nayeli Edwards DO PCP - General Family Medicine 06/03/23 documented as of this encounter
--- OUTSIDE RECORDS SUMMARY | 2024-08-29 01:41 | External Medical Summary | Summary of Care ---
Author Name Unknown Organization [facility] Address [address] [facility] [place] [address] Phone [phone] Care Team Providers Care Color Checker Name Role Phone Nayeli Tsai DO Primary Care Provider [phone] Reason for Visit * Reason Onset Date Comments FYI 05/06/2024 Annual mammogram Encounter Details Date Type Department Care Team (Late st Contact Info) Description 05/06/2024 Telephone Family Practice 65 [facility] [place] [address] [place] [phone] Nayeli Tsai DO [address] [place], [place] [phone] FYI (Annual mammogram) Allergies Active Allergy Reactions [...] placement,Persistent atrial fibrillation (HCC),Coronary artery disease of [place] artery of [place] heart with stable angina pectoris (HCC),Hypertensive heart [...] Tablet Sublingual (Nitrostat)Indicatio ns:Coronary artery disease involving [place] coronary artery of [place] heart without angina pectoris Place 1 Tablet [...] incontinence 03/31/2020 Coronary artery disease invo lving [place] coronary artery of [place] heart without angina pectoris 10/12/2019 Hypertensive heart [...] history History of hysterectomy 05/05/2020 11/0 03/2020 group home resident 05/05/20202022 Urinary tract infection without [...] NOS 12/16/2002 09/08/2009 Overview: Modified per [facility] protocol #16. Malignant neoplasm of cerebral meninges [...] Miscellaneous Notes * Telephone Encounter - Irina Gonzalez OSA - 05/07/2024 11:02 AM EDT 2nd attempt Sent [facility] to schedule follow up appointment Also left message on machine * Telephone Encounter - Irina Gonzalez OSA - 05/06/2024 10:50 AM EDT Left message on machine to schedule appts * Addendum Note - Nayeli Tsai DO - 05/06/2024 10:40 AM EDTAddended by: NAYELI TSAI on: 05/06/2024 10:40 AM Modules accepted: Orders * Telephone Encounter - Nayeli Tsai DO - 05/06/2024 10:39 AM EDT Order signed. Agree with certified letter. desk director, please reach out to pt to schedule as she has cancelled last several visits. Looks likeshe states it is related to insurance? Please clarify what is going on. * Addendum Note - Makayla Calhoun LPN - 05/06/2024 9:42 AM EDTAddended by: MAKAYLA CALHOUN on: 05/06/2024 09:42 AM Modules accepted: [...] 05/18/2024 1:00 PM EDT Office Visit Urology, [place] [address] [place], [place] [phone] Johann Woods MD [address] [place], [place] [phone] Scheduled Orders Name Type Priority Associated Diagnoses [...] 06/03/2023, 05/19/2021, 04/28/2021 CKD PHOS USE SMARTSET 26168 01/02/202412/19, 03/20/2022, 09/19/2021, Additional history exists DIG [...] Monitoring 08/20/2024 08/20/2023 CKD HGB USE SMARTSET 40225 11/20/202411/20, 11/20/2023, 09/16/2023, Additional history exists DXA [...] Power of Attor brandie? No Care Teams Color Checker Relationship Specialty Start Date End Date Nayeli Tsai DO [address] [place] [address] PCP - General Family Medicine 05/06/24 documented as of this encounter
--- OUTSIDE RECORDS SUMMARY | 2024-08-29 01:41 | External Medical Summary | Summary of Care ---
Author Name Unknown Organization [facility] Address [address] [facility] [place] [address] Phone [phone] Care Team Providers Care Clay Carman Name Role Phone Nayeli Tsai DO Primary Care Provider [phone] Reason for Visit * Reason Onset Date Comments FYI 05/06/2024 Annual mammogram Encounter Details Date Type Department Care Team (Late st Contact Info) Description 05/06/2024 Telephone Family Practice 65 [facility] [place] [address] [place] [phone] Nayeli Tsai DO [address] [place], [place] [phone] FYI (Annual mammogram) Allergies Active Allergy Reactions [...] placement,Persistent atrial fibrillation (HCC),Coronary artery disease of [place] artery of [place] heart with stable angina pectoris (HCC),Hypertensive heart [...] Tablet Sublingual (Nitrostat)Indicatio ns:Coronary artery disease involving [place] coronary artery of [place] heart without angina pectoris Place 1 Tablet [...] incontinence 03/31/2020 Coronary artery disease invo lving [place] coronary artery of [place] heart without angina pectoris 10/12/2019 Hypertensive heart [...] history History of hysterectomy 05/05/2020 11/0 03/2020 longterm resident 05/05/20202022 Urinary tract infection without hematuria [...] EDT Order signed. Agree with certified letter. service desk agent, please reach out to pt to schedule [...] 05/18/2024 1:00 PM EDT Office Visit Urology, [place] [address] [place] [address] Johann Woods MD [address] [place] [address] Scheduled Orders Name Type Priority Associated Diagnoses [...] 06/03/2023, 05/19/2021, 04/28/2021 CKD PHOS USE SMARTSET 70038 01/02/202412/19, 03/20/2022, 09/19/2021, Additional history exists DIG [...] Monitoring 08/20/2024 08/20/2023 CKD HGB USE SMARTSET 29224 11/20/202411/20, 11/20/2023, 09/16/2023, Additional history exists DXA [...] Power of Attor brandie? No Care Teams Clay Carman Relationship Specialty Start Date End Date Nayeli Tsai DO [address] [place] [address] PCP - General Family Medicine 05/06/24 documented as of this encounter
--- OUTSIDE RECORDS SUMMARY | 2024-08-29 01:42 | External Medical Summary | Summary of Care ---
Author Name Unknown Organization [facility] Address [address] [facility] [address] Phone [phone] Care Team Providers Care Logistics Team Leader Name Role Phone Nayeli Edwards DO Primary Care Provider [phone] Encounter Details Date Type Department Care Team (Late st Contact Info) Description 03/13/2024 Orders Only Family Practice [address], [place] [address] [place] [phone] Nayeli Edwards DO [address] [place] [address] Allergies Active Allergy Reactions Criticality Noted Date [...] as of this encounter (statuses as of 03/13/2024) Medications Medication Sig Dispensed Refills Start Date [...] placement,Persistent atrial fibrillation (HCC),Coronary artery disease of [place] artery of [place] heart with stable angina pectoris (HCC),Hypertensive heart [...] Tablet Sublingual (Nitrostat)Indicatio ns:Coronary artery disease involving [place] coronary artery of [place] heart without angina pectoris Place 1 Tablet under the tongue every 5 minutes as needed for Pain, Chest. 25 Tablet 08/20/2023 Active Metoprolol Succinate ER 50 MG Oral Tablet Extended Release 24 Hour (toPROL XL)Indications:Persi stent atrial fibrillation (HCC),HTN, goal below 140/90 Metoprolol ER 1.5 tablets in the morning and 1 tablet in the evening. Has been taking one tab in am and one tab in pm 225 Tablet 1 11/20/2023 Active Venlafaxine HCl ER 150 MG Oral Capsule Extended Release 24 Hour (Effexor XR)Indications:Mood disorder (HCC),JASON (generalized anxiety disorder) Take 1 Capsule by mouth in the morning. Do not cut, crush, or chew.. 30 Capsule 5 01/26/2024 Active Hospital, Clinic, or Other Facility Administered Medication Ordered Dose Route Frequency Start Date End Date Status Albuterol Sulfate (Proventil) (2.5 MG/3ML) 0.083% inhalation solution 2.5 mgIndications:Tachycard ia,CARRASCO (dyspnea on exertion) 2.5 mg NEBULIZER ONCE PRN 12/27/2023 12/26/2024 Active documented as of this encounter (statuses as of 03/13/2024) Active Problems Problem Noted Date Diagnosed Date [...] incontinence 03/31/2020 Coronary artery disease invo lving [place] coronary artery of [place] heart without angina pectoris 10/12/2019 Hypertensive heart [...] as of this encounter (statuses as of 03/13/2024) Resolved Problems Problem Noted Date Diagnosed Date [...] 05/30/2020 Overview: history History of hysterectomy 05/05/202003/2020 skilled nursing resident 05/05/20202022 Urinary tract infection without hematuria [...] as of this encounter (statuses as of 03/13/2024) Immunizations Name Administration Dates Next Due COVID-19 [...] IV3, With Preserve, Inj 08/03/2014,07/09/2013,07/21/2012,06/22,09/07/2010,07/26/2009,08/04/20 08,09/02/2007 08/03/2015 TDAP (age 11 and older)(Adacel) 06/04/2011 Varicella Zoster Vaccine (Adult) 04/12/2014 Zoster [...] money to get more. Never true 08/27/2023 Sex and Gender Information Value Date [...] PM EDT Office Visit Family Practice [address], [place] [address] [place] [address] Nayeli Edwards [address] [place] [address] 05/05/2024 1:00 PM EDT Appointment Cardiac Studies 1st Fl, [facility] [place] [address] [place] [address] 05/18/2024 12:15 PM EDT Appointment Radiology, [place] [address] [place] [address] 05/18/2024 1:00 PM EDT Office Visit Urology, [place] [address] [place] [address] Clinic, [facility] [place] [facility] [address] [place] [address] Scheduled Procedures Name Priority Associated Diagnoses Date/Ti me COLONOSCOPY FLEXIBLE PROXIMAL DIAGNOSTIC Recall History of colon polyps Health Maintenance Due Date Last Done Comments Colonoscopy 06/21/2020 06/21/2015, 10/2014, 05/09/2010, Additional history exists COVID-19 Vaccine ( season) 2023 06/03/2023, 05/19/2021, 04/28/2021 Depression, Most Recent Score >= 10 (will fire each visit until score < 10) 08/21/2023 08/20/2023 CKD PHOS USE SMARTSET 00411 01/02/202412/19, 03/20/2022, 09/19/2021, Additional history exists DIG LEVEL FOR MEDICATION MONITORING YEARLY 01/02/2024 01/01/2023, 03/20/2022, 05/04/2020, Additional history exists GFR 05/20/2024 11/20/2023, 08/22, 07/26/2023, Additional history exists HbA1c 05/20/2024 11/20/2023, 05/21, 01/01/2023, Additional history exists Diabetic Foot Exam 06/03/2024 06/03/2023, 05/18/2020 Albumin/Creatinine Ratio 08/20/2024 023, 03/20/2022, 09/19/2021, Additional history exists CKD HGB USE SMARTSET 33652 11/20/202411/20, 11/20/2023, 09/16/2023, Additional history exists Diabetic Eye Exam 03/13/2025 06/10/2023, , 06/10/2023, Additional history exists DXA Scan 08/29/2025 08/29/2018, [...] Not on filedocumented as of this encounter Procedures Procedure Name Priority Date/Time Associated Diagnosis Comments DIABETIC EYE EXAM Routine 06/10/2023 documented in this encounter Results * DIABETIC EYE EXAM (06/10/2023) 06/10/2023 History Per Patient OTHER OUTSIDE LAB (SEE SCANNED REPORT) documented in this encounter Advance Directives * Full Code (Latest Code Status on File) Date Activated Date Inactivated Comments 12/17/2016 3:08 PM 12/19/2016 4:11 PM Question Answer Comments Discussion of Advance Directives occurred with: Not Discussed Does the patient have a Living Will? No Does the patient have Health Care Power of Attor brandie? No Care Teams Logistics Team Leader Relationship Specialty Start Date End Date Nayeli Edwards DO [address] [place] [address] PCP - General Family Medicine 06/03/23 documented as of this encounter
--- OUTSIDE RECORDS SUMMARY | 2024-08-29 01:42 | External Medical Summary | Summary of Care ---
Author Name Unknown Organization [facility] Address [address] [place] [address] Phone [phone] Care Team Providers Care Senior Web Engineer Name Role Phone Nayeli Edwards DO Primary Care Provider + [phone] Encounter Details Date Type Department Care Team (Late st Contact Info) Description 04/14/2024 Population Health External Data Unspecified Department Allergies Active Allergy Reactions Criticality Noted Date [...] by mouth in the morning. 30 Tablet 11 06/27/2023 Active busPIRone HCl 15 MG Oral Tablet (Buspar)Indications: Stress at home Take 1 Tablet by mouth in the morning and 1 Tablet before bedtime. 60 Tablet 11 06/27/2023 Active Clopidogrel Bisulfate 75 MG Oral Tablet (pLAVix)Indications: S/P drug eluting coronary stent placement Take 1 Tablet by mouth in the morning. 30 Tablet 06/27/2023 Active Digoxin 125 MCG Oral Tablet (Lanoxin)Indications :S/P drug eluting coronary stent placement,Persistent atrial fibrillation (HCC),Coronary artery disease of buckland artery of buckland heart with stable angina pectoris (HCC),Hypertensive heart [...] Tablet Sublingual (Nitrostat)Indicatio ns:Coronary artery disease involving buck[place] coronary artery of buckland heart without angina pectoris Place 1 Tablet [...] incontinence 03/31/2020 Coronary artery disease invo lving buckland coronary artery of buckland heart without angina pectoris 10/12/2019 Hypertensive heart [...] Overview: history Avascular necrosis 05/02/2020 Functional incontinence 03/31/2020/ Urge incontinence of urine 03/31/2020 1 11/19/2020 [...] inactive term Asthma in remission 04/03/2010 06/28/20 Overview: Per Provider Protocol. Ventral hernia, unspecified, [...] 08/27/2023 Does the household have a re lar source of income? (Household - for ages [...] EDT Office Visit Family Practice [address] [place] [address] [place] [id number] Nayeli Edwards DO [address] [place] [address] 05/05/2024 1:00 PM EDT Appointment Cardiac Studies 1st Fl, [facility] [address] [place] [address] 05/18/2024 12:15 PM EDT Appointment Radiology, [place] [address] [place] [address] 05/18/2024 1:00 PM EDT Office Visit Urology, [place] [address] [place] [address] Johann Woods MD [address] [place], [place] [id number] Scheduled Procedures Name Priority Associated Diagnoses Date/Ti me COLONOSCOPY FLEXIBLE PROXIMAL DIAGNOSTIC Recall History of colon polyps Health Maintenance Due Date Last Done Comments Colonoscopy 06/21/2020 06/21/2015, 10/2014, 05/09/2010, Additional history exists COVID-19 Vaccine ( season) 2023 06/03/2023, 05/19/2021, 04/28/2021 CKD PHOS USE SMARTSET 52821 01/02/202412/19, 03/20/2022, 09/19/2021, Additional history exists DIG [...] Monitoring 08/20/2024 08/20/2023 CKD HGB USE SMARTSET 53199 11/20/202411/20, 11/20/2023, 09/16/2023, Additional history exists DXA [...] Power of Attor brandie? No Care Teams Senior Web Engineer Relationship Specialty Start Date End Date Nayeli Edwards DO PCP - General Family Medicine 06/03/23 documented as of this encounter
[2024-08-29 01:56] LABS: BUN Creatinine Ratio 17.8 (10-20); Calcium 9.2 mg/dl (8.6-10.3); Chol HDL Ratio 4.1 (0-5); Creatinine Clr Calc Pharmacy 53.4 ml/min; Magnesium 1.8 mg/dl (1.7-2.4); Phosphorus 2.9 mg/dl (2.5-4.9); Potassium 3.7 mmol/L (3.5-5.1)
[2024-08-29 02:03] LABS: ANTI-Xa, UFH(UnfractionatedHep < 0.10 IU/ml (0.3-0.7)
[2024-08-29 02:10] LABS: Thyroid Stimulating Hormone 1.182 uIu/ml (0.300-4.500)
[2024-08-29] MEDS: HEPARIN SOD (PORCINE) 1000 UNIT/ML IV ONE (02:40)
[2024-08-29] MEDS: methylPREDNISolone 40 MG in SYRINGE 0 ML IV SCH (05:28)
[2024-08-29 07:16] LABS: Estimated Average Glucose 120 mg/dl; Hemoglobin A1C 5.8 % (4.5-5.6)
[2024-08-29] MEDS: FUROSEMIDE 40 MG/4 ML VIAL IV SCH (08:34)
--- NOTE | 2024-08-29 08:37 | Cardiology Consultation ---
Date of Consultation August 29, 2024 Assessment & Plan (1) Atrial fibrillation with rapid ventricular response: (2) Acute URI: (3) Acute dyspnea: (4) Chronic heart failure with preserved ejection fraction (HFpEF): (5) Pulmonary vascular congestion: (6) Tricuspid valve mass: Plan Assessment: 79 year old female presents with one week of acutely worsening dyspnea, URI symptoms and a productive cough with greenish sputum, known history of A-fib, now A-fib with RVR. Cardiology requested for further evaluation Plan: 1. Atrial fibrillation with RVR -Known history of A-fib. Self discontinued medications several months ago which has likely been contributing to her slowly progressive dyspnea, outside of her acute URI symptoms -Rates remains greater than 100bpm. Will increase metoprolol tartrate to 25mg PO TID -Continue Heparin gtt at this time for anticoagulation. [id number] score of 7. She was previously on Eliquis and is agreeable to restart when appropriate when appropriate during course of hospitalization, continue heparin gtt for now. -Echocardiogram pending -Continue to monitor on telemetry. 2. Acute URI 3. Acute dyspnea 4. Chronic HFpEF 5. Pulmonary vascular congestion -acute dyspnea is multifactorial in the setting of an acute infections process and A-fib with RVR. -Does not demonstrate significant overload on today's exam; however, given chest xray, would cautiously diurese, continue Furosemide 40mg IV Daily -Strict I&O, Daily weights on standing scale, close monitoring of serum electrolytes and renal function. Low sodium diet. -Continued management of possible pneumonia per primary team with antibiotics, steroids and neubulizer treatments. 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 Patient has been seen by CT surgery, and has opted to not pursue surgical intervention. -Will obtain echocardiogram today to assess overall structure, function, progression of valvular disease. Case has been discussed with Dr. Walters. Further recommendations regarding plan of care as per his assessment. I spent a total of 40 minutes on the date of service in preparation, delivery, documentation of the care provided to the patient excluding any time spent in the performance of separately billed services. ROBYN King [facility] Cardiology [facility] Supervising Physician Co-Signing Physician Notes I have personally performed a history and physical examination on the patient. I have reviewed the advance practitioner's documentation, and I agree with, and take responsibility for the plan of care. 79-year-old female presents to the emergency department due to shortness of breath. Discontinued all medications approximately 3 months ago. States "I got fed up taking all these pills". Diagnosed with pneumonia and acute heart failure with mildly reduced LV function. Telemetry feels atrial fibrillation with rapid ventricular response. Heart rate currently 110-120 bpm. Echocardiogram reveals mild LV systolic dysfunction with moderate to severe mitral regurgitation. Tricuspid valve mass unchanged with compared to prior study. Recommend treatment of underlying pneumonia as per internal medicine. Titrate metoprolol to 25 mg 3 times daily. Gentle diuresis, Lasix 40 mg IV daily. Monitor fluid balance, daily, GFR, and electrolytes. Reviewed importance of compliance with current medical therapies. All questions answered to patient's satisfaction. I spent a total of 30 minutes on the date of service in preparation, delivery, and documentation of the care provided to this patient, excluding any time spent in the performance of separately billed services. Cezar Walters DO, [facility] History of Present Illness Reason for Consultation: Acute on chronic HF, A-fib wit RVR Requesting Physician: Sohail thrasher Attending Physician: Bryon Hurley MD History of Present Illness HPI: patient is a 79 year old female with PMHx as stated below that presented to the ER with complaints of shortness of breath, progressively worse over the past few weeks accompanied by a thick productive cough with greenish sputum for the past week. Of note, patient stopped all of her medications and physician follow up as of April 2024 by her own self discretion. She states that every time she would go to the doctor, she would complain of not feeling well on her meds, but they would never stop any, only add more. She said "i just got sick of it". Patient denies any chest pain, pressure or palpitations. She endorses shortness of breath, and fatigue. Denies any near syncope, syncope or edema. Past Medical History: 1. Chronic coronary artery disease status post drug-eluting stents right coronary artery for acute thrombosis 2018, left anterior descending and diagonal 2020 2. Persistent atrial fibrillation 3. 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 5. HLD 6. Diabetes, type II 7. Moderate persistent asthma 8. CKD stage IIIa 9. Noncompliance EKG A-fib with RVR with PVC's 108bpm. Review of telemetry continues to demonstrate A-fib with rates 100-160's. Chest x-ray: IMPRESSION: Shallow inspiration with vascular congestion and patchy bilateral pneumonia High sensitivity troponin negative x1. BNP: 437 Allergies Allergy/AdvReac Type Severity Reaction Status Date / Time adhesive Allergy Unknown HEAVIER Verified 09/24/23 07:30 SURG TAPE-REDNESS SORE SKIN cat dander Allergy Unknown ITCHY Verified 09/24/23 07:30 NOSE, ITCHY EYES,RUNNY NOSE grass pollen-perennial rye, Allergy Unknown GRASS,MOLD-ITCHY Verified 09/24/23 07:30 standar EYES RUNNY NOSE latex Allergy Unknown CONTACT Verified 09/24/23 07:30 DERMATITIS nickel Allergy Unknown Rash Verified 09/24/23 07:30 tetanus toxoid, adsorbed Allergy Unknown SWELLING Verified 09/24/23 07:30 AT SITE KOLE Inhibitors AdvReac Unknown COUGH Verified 09/24/23 07:30 Home Medications Medication Instructions Recorded Confirmed Type acetaminophen 500 mg tablet 1,000 mg PO BID Pain 11/28/20 08/28/24 History Patient History Medical History Meningioma CKD (chronic kidney disease) stage 3, GFR 30-59 ml/min Methylenetetrahydrofolate reductase (MTHFR) deficiency History of recent hospitalization [facility] 08/20-08/22/23 for ongoing SOB and afib with RVR (post COVID). HR improved with digoxin and BB. 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 Hypothyroidism Urinary tract infection March 2020 > resolved History of cardioversion approx 2 yrs ago; follows with for persitent Afib Hx of breast cancer left; s/p lumpectomy Anxiety Kidney stones passed on own Dyslipidemia Hypertension Atrial fibrillation dx 2018 > hx cardioversion at [facility], unsuccessful. now with persistent afib; Continues on Eliquis ; follows with Coronary artery disease s/p JAILENE to RCA 2019, JAILENE to LAD 2020 Chronic diastolic heart failure Aug 2019, patient was readmitted to [facility] with complaints of worsening SOB, edema, weight gain, and Afib RVR. She was evaluated by Dr. Toussaint. She was treated with IV diuretics with good response. Trace pedal edema on exam at [facility] 12/14/20. History of DVT (deep vein thrombosis) ~1999> left leg > unknown etiology Asthma rescue inhaler weekly PRN> short of breath most of time per pt Scoliosis Arthritis Surgical History History of tooth extraction Hx of eye surgery scar tissue removed bilat History of cataract surgery bilateral History of bilateral tubal ligation History of section x2 History of right knee joint replacement History of left knee replacement S/P bunionectomy bilateral History of colonoscopy S/P left inguinal hernia repair x2 Status post lumbar surgery fusion @ [facility] S/P QUINCY-BSO Hx of lumpectomy Left lumpectomy with lymph node removal Status post coronary artery stent placement JAILENE to RCA 2018, JAILENE to LAD 2020 Family History Other Heart disease No family history of adverse response to anesthesia Social History Smoking Status: Never smoker Second Hand Exposure: Yes (parents and ); Do You Dip or Chew Tobacco: No; Tobacco Cessation Education Requested by Patient: No Hx Alcohol Use: No Hx Substance Use: No Preferred Language: Turkish Communication Ability: Effective Guinea Pig Breeder Required: No Beliefs That Will Affect Care: None marital status: / Current Living Situation: Family Current Living Situation Comment: lives at home with son Other Information That Helps Us Care for You: No Feels Safe at Home: Yes Safety Concerns: Feels Safe At This Time Assistive Devices: Cane and Walker Review of Systems Review of Systems: All systems reviewed & are unremarkable except as noted in HPI & below Physical Exam Constitutional: well developed, well nourished and + ill appearing; no acute distress Neck: normal visual inspection and trachea midline Respiratory: normal respiratory effort and + cough; no respiratory distress and no labored breathing Auscultation: + wheezes (exp. wheezes throughout); no crackles, no rales and no rhonchi Cardiovascular: Rate/Rhythm: + tachycardic and + irregularly irregular Heart Sounds: normal S1, normal S2 and + murmur (+1/6 systolic) Vessels: dorsalis pedis pulses present; no JVD Extremities: no edema Skin: no rashes, warm and dry + ecchymosis (large area of ecchymosis to the right upper ext. biceps region) Psychiatric: A+Ox3, euthymic affect Results & Data Vital Signs (Past 12 Hours) Vital Signs Temp Pulse Pulse Resp BP BP Pulse Ox 08/29/24 08:04 36.3 C L 103 H 18 151/79 H 95 08/29/24 07:18 91 H 18 94 08/29/24 04:15 109 H 18 93 08/29/24 02:35 36.5 C 107 H 19 144/77 H 92 08/29/24 00:08 103 H 20 97 08/28/24 22:28 36.5 C 109 H 20 130/94 95 08/28/24 22:27 100 H 08/28/24 20:52 103 H 18 95 O2 Del Method 08/29/24 08:04 Room Air 08/29/24 07:18 Room Air 08/29/24 04:15 Room Air 08/29/24 02:35 Room Air 08/29/24 00:08 Room Air 08/28/24 22:28 Room Air 08/28/24 22:27 08/28/24 20:52 Room Air Laboratory Results Cardiac Enzymes 08/28/24 Range/Units 15:25 AST 16 (13-39) U/L Troponin I High Sens 7.8 (0-14) pg/ml B-Natriuretic Peptide 437 H (0-100) pg/ml Coagulation 08/28/24 Range/Units 15:25 PT 11.4 (9.0-12.0) Seconds APTT 37 H (21-31) Seconds B-Natriuretic Peptide 437 H (0-100) pg/ml Lipids 08/29/24 Range/Units 01:25 Triglycerides 71 (0-150) mg/dl Cholesterol 211 H (0-200) mg/dl HDL Cholesterol 52 mg/dl Cholesterol/HDL Ratio 4.1 (0-5) CBC 08/28/24 08/29/24 08/29/24 Range/Units 15:25 01:22 08:22 WBC 8.62 6.74 6.62 (4.8-10.8) K/ul RBC 5.46 H 5.11 5.41 H (4.20-5.40) M/uL Hgb 15.4 14.6 15.4 (12.0-16.0) g/dl Hct 47.7 H 43.8 46.5 (37.0-47.0) % Plt Count 269 256 257 (130-400) K/uL Neut # (Auto) 5.47 5.63 (1.40-6.50) K/uL Lymph # (Auto) 2.30 0.86 L (1.20-3.40) K/uL [place]oun # (Auto) 0.64 H 0.10 L (0.11-0.59) K/uL Eos # (Auto) 0.12 0.00 (0.00-0.50) K/uL Baso # (Auto) 0.06 0.01 (0.00-0.20) K/uL Comprehensive Metabolic Panel 08/28/24 08/29/24 Range/Units 15:25 01:25 Sodium 143 140 (136-145) mmol/L Potassium 3.8 3.7 (3.5-5.1) mmol/L Chloride 109 H 108 H (98-107) mmol/L Carbon Dioxide 25 21 (21-32) mmol/L BUN 15 16 (6-23) mg/dl Creatinine 0.95 0.90 (0.6-1.2) mg/dl Glucose 120 H 229 H (70-99(Fasting)) mg/dl Calcium 9.6 9.2 (8.6-10.3) mg/dl AST 16 (13-39) U/L ALT 8 (7-52) U/L Alkaline Phosphatase 74 (34-104) U/L Total Protein 6.8 (6.0-8.3) gm/dl Albumin 4.2 (3.4-5.0) gm/dl Intake and Output 08/28/24 08/29/24 08/29/24 22:59 06:59 14:59 Intake Total 158 / 598.25 440.25 / 598.25 232.366 / 232.366 Output Total 100 / 100 0 / 100 200 / 200 Balance 58 / 498.25 440.25 / 498.25 32.366 / 32.366 Intake: IV 58 / 258.25 200.25 / 258.25 232.366 / 232.366 Doxycycline Hyclate 100 mg In 100 / 100 100 / 100 Dextrose 5% Mini-B 100 ml @ 50 mls/hr IV BID DAO Rx#:[id number] Heparin Sodium/Dextrose 25,000 8 / 108.25 100.25 / 108.25 132.366 / 132.366 units In 500 ml @ 950 UNITS/HR 19 mls/hr IV .Q24H DAO Rx#: [id number] cefTRIAXone SODIUM 2,000 mg In 50 / 50 50 ml @ 100 mls/hr IV Q24H DAO Rx#:[id number] Oral 100 / 340 240 / 340 Output: Urine 100 / 100 200 / 200 # Bowel Movements 0 / 0 0 / 0 Other: # Unmeasured Voids 1 1 Weight 89 kg 89 kg Weight Measurement Method Built in [facility] Built in [facility]
[2024-08-29 08:43] LABS: Basophils # (auto) 0.01 K/uL (0.00-0.20); Basophils % (auto) 0.2 %; Hematocrit (blood only) 46.5 % (37.0-47.0); Hemoglobin 15.4 g/dl (12.0-16.0); Immature Granulocytes # (auto) 0.02 K/uL (0.01-0.20); Immature Granulocytes % (auto) 0.3 %; Lymphocytes # (auto) 0.86 K/uL (1.20-3.40); Mean Corpuscular Hemoglobin 28.5 pg (25.0-34.0); Mean Corpuscular Hgb Conc 33.1 g/dL (32.0-36.0); Mean Platelet Volume 11.2 fL (9.4-12.4); Monocytes % (auto) 1.5 %; Neutrophils # (auto) 5.63 K/uL (1.40-6.50); Platelet Count 257 K/uL (130-400); RDW Coefficient of Variation 15.1 % (11.5-14.5); RDW Standard Deviation 47.3 fL (36.4-46.3); Red Blood Count 5.41 M/uL (4.20-5.40); White Blood Count 6.62 K/ul (4.8-10.8)
[2024-08-29 09:09] LABS: ANTI-Xa, UFH(UnfractionatedHep 0.53 IU/ml (0.3-0.7)
--- NOTE | 2024-08-29 13:09 | Hospitalist Progress Note ---
Date of Service August 29, 2024 Assessment & Plan (1) Pulmonary vascular congestion: Plan Acute on chronic heart failure with preserved ejection fraction A-fib RVR Medication non compliance Likely secondary to medical noncompliance and possibly triggered by pulmonary infection. Admitting CXR with pulmonary vascular congestion, BNP elevated, patient with shortness of breath worsening over the last few weeks. Patient used to take eliquis, metoprolol, Lasix, Aldactone, Imdur, atorvastatin. Heparin drip. Started on IV Lasix 40 mg IV daily - cont. for now Restarted po metoprolol 25 mg tid, as needed IV metoprolol. Telemetry monitoring. Strict I's and O's, fluid restriction of 1800 mL a day. Echo ordered Cardiology consulted Possible pneumonia Mild asthma exacerbation Patient presents with shortness of breath and cough with greenish sputum for about a week. Rhonhi and wheeze on exam on admission. Started on Rocephin and doxycycline, follow sputum and blood culture. solu medrol and jean-pierre duoneb Repeat chest imaging in about 6 weeks time to document resolution. Other chronic medical condition: HTN, HLD, T2DM, Hypothyroidism current A1c 5.8%, repeat lipid profile - ldl 145 Repeat TSH 1.18 will likely need statin restarted, continue to titrate cardiac medications. DVT prophylaxis: heparin drip DNI/DNI Admission and Anticipated Discharge Date Admission Date: August 28, 2024 Subjective Patient seen in follow-up of shortness of breath Found to be in A-fib with RVR in the ED Stopped all her medications several months ago Concern for possible pneumonia as well Currently laying in bed, in no acute distress, reports feeling better than yesterday Continues to have a cough No chest pain abdominal pain, no nausea vomiting Review of Systems Review of Systems: All systems reviewed & are unremarkable except as noted in Subjective Physical Exam Physical Exam: GENERAL: elderly F WD/WN in NAD HEENT: NC/ AT, EOMI NECK: supple CV: irregular, tachycardic RESPIRATORY: No accessory muscle use. b/l crackles ABDOMEN: Soft, bowel sounds present, nontender, no distention. NEURO: awake, alert, answers appropriately, No facial asymmetry, Speech is clear, Moves extremities. EXTREMITIES: trace to 1+ ble edema, no erythema seen. Results & Data Results & Data Vital Signs (Past 12 Hours) Vital Signs Temp Pulse Pulse Resp BP Pulse Ox O2 Del Method 08/29/24 11:54 36.7 C 114 H 22 152/77 H 95 Room Air 08/29/24 11:34 88 18 93 Room Air 08/29/24 11:18 108 H 08/29/24 08:04 36.3 C L 103 H 18 151/79 H 95 Room Air 08/29/24 07:18 91 H 18 94 Room Air 08/29/24 04:15 109 H 18 93 Room Air 08/29/24 02:35 36.5 C 107 H 19 144/77 H 92 Room Air Laboratory Results 08/29/24 08/29/24 08/29/24 Range/Units 11:06 08:22 07:16 WBC 6.62 (4.8-10.8) K/ul RBC 5.41 H (4.20-5.40) M/uL Hgb 15.4 (12.0-16.0) g/dl Hct 46.5 (37.0-47.0) % MCV 86.0 (80.0-100.0) fL MCH 28.5 (25.0-34.0) pg MCHC 33.1 (32.0-36.0) g/dL RDW Std Deviation 47.3 H (36.4-46.3) fL RDW Coeff of Stephan 15.1 H (11.5-14.5) % Plt Count 257 (130-400) K/uL MPV 11.2 (9.4-12.4) fL Immature Gran % (Auto) 0.3 % Neut % (Auto) 85.0 % Lymph % (Auto) 13.0 % [place] % (Auto) 1.5 % Eos % (Auto) 0.0 % Baso % (Auto) 0.2 % Neut # (Auto) 5.63 (1.40-6.50) K/uL Lymph # (Auto) 0.86 L (1.20-3.40) K/uL [place] # (Auto) 0.10 L (0.11-0.59) K/uL Eos # (Auto) 0.00 (0.00-0.50) K/uL Baso # (Auto) 0.01 (0.00-0.20) K/uL Immature Gran # (Auto) 0.02 (0.01-0.20) K/uL PT (9.0-12.0) Seconds INR (0.9-1.1) APTT (21-31) Seconds PTT Ratio Heparin Anti-Xa, Unfract 0.53 (0.3-0.7) IU/ml VBG pH (7.36-7.41) VBG pCO2 (38-50) mmHg VBG pO2 mmHg VBG HCO3 mmol/L VBG O2 Saturation % VBG Base Excess mEq/L Sodium (136-145) mmol/L Potassium (3.5-5.1) mmol/L Chloride (98-107) mmol/L Carbon Dioxide (21-32) mmol/L Anion Gap (3-11) BUN (6-23) mg/dl Creatinine (0.6-1.2) mg/dl Est Cr Clr Drug Dosing ml/min eGFR BUN/Creatinine Ratio (10-20) Glucose (70-99(Fasting)) mg/dl POC Glucose 211 H 173 H (70-99) mg/dl Estimat Average Glucose mg/dl Hemoglobin A1c (4.5-5.6) % Calcium (8.6-10.3) mg/dl Phosphorus (2.5-4.9) mg/dl Magnesium (1.7-2.4) mg/dl Total Bilirubin (0.2-1.0) mg/dl AST (13-39) U/L ALT (7-52) U/L Alkaline Phosphatase (34-104) U/L Troponin I High Sens (0-14) pg/ml B-Natriuretic Peptide (0-100) pg/ml Total Protein (6.0-8.3) gm/dl Albumin (3.4-5.0) gm/dl Globulin (2.5-4.0) gm/dl Albumin/Globulin Ratio (0.9-2) Triglycerides (0-150) mg/dl Cholesterol (0-200) mg/dl LDL Cholesterol, Calc mg/dl VLDL Cholesterol, Calc (0-30) mg/dl HDL Cholesterol mg/dl Cholesterol/HDL Ratio (0-5) Procalcitonin (0-0.5) ng/ml TSH (0.300-4.500) uIu/ml Urine Color Urine Appearance (Clear) Urine pH (4.5-7.5) Ur Specific [place] (1.000-1.030) Urine Protein (Negative) Urine Glucose (UA) (Negative) Urine Ketones (Negative) Urine Blood (Negative) Urine Nitrite (Negative) Urine Bilirubin (Negative) Urine Urobilinogen (Negative) Ur Leukocyte Esterase (Negative) Adenovirus (PCR) (NotDetected) B. pertussis DNA (PCR) (NotDetected) B.parapertussis DNA PCR (NotDetected) C. pneumoniae DNA (PCR) (NotDetected) Coronavirus OC43 (PCR) (NotDetected) Coronavirus HKU1 (PCR) (NotDetected) Coronavirus 229E (PCR) (NotDetected) SARS-CoV-2 (PCR) (NotDetected) Coronavirus NL63 (PCR) (NotDetected) Human Metapneumovir PCR (NotDetected) Influenza Type A (PCR) (NotDetected) Influenza Type B (PCR) (NotDetected) M. pneumoniae (PCR) (NotDetected) Parainfluenza 1 (PCR) (NotDetected) Parainfluenza 2 (PCR) (NotDetected) Parainfluenza 3 (PCR) (NotDetected) Parainfluenza 4 (PCR) (NotDetected) RSV (PCR) (NotDetected) Entero/Rhino (PCR) (NotDetected) 08/29/24 08/29/24 08/28/24 Range/Units 01:25 01:22 22:18 WBC 6.74 (4.8-10.8) K/ul RBC 5.11 (4.20-5.40) M/uL Hgb 14.6 (12.0-16.0) g/dl Hct 43.8 (37.0-47.0) % MCV 85.7 (80.0-100.0) fL MCH 28.6 (25.0-34.0) pg MCHC 33.3 (32.0-36.0) g/dL RDW Std Deviation 46.8 H (36.4-46.3) fL RDW Coeff of Stephan 15.0 H (11.5-14.5) % Plt Count 256 (130-400) K/uL MPV 11.5 (9.4-12.4) fL Immature Gran % (Auto) % Neut % (Auto) % Lymph % (Auto) % [place] % (Auto) % Eos % (Auto) % Baso % (Auto) % Neut # (Auto) (1.40-6.50) K/uL Lymph # (Auto) (1.20-3.40) K/uL [place] # (Auto) (0.11-0.59) K/uL Eos # (Auto) (0.00-0.50) K/uL Baso # (Auto) (0.00-0.20) K/uL Immature Gran # (Auto) (0.01-0.20) K/uL PT (9.0-12.0) Seconds INR (0.9-1.1) APTT (21-31) Seconds PTT Ratio Heparin Anti-Xa, Unfract < 0.10 L (0.3-0.7) IU/ml VBG pH (7.36-7.41) VBG pCO2 (38-50) mmHg VBG pO2 mmHg VBG HCO3 mmol/L VBG O2 Saturation % VBG Base Excess mEq/L Sodium 140 (136-145) mmol/L Potassium 3.7 (3.5-5.1) mmol/L Chloride 108 H (98-107) mmol/L Carbon Dioxide 21 (21-32) mmol/L Anion Gap 11 (3-11) BUN 16 (6-23) mg/dl Creatinine 0.90 (0.6-1.2) mg/dl Est Cr Clr Drug Dosing 53.4 ml/min eGFR 65.44 BUN/Creatinine Ratio 17.8 (10-20) Glucose 229 H (70-99(Fasting)) mg/dl POC Glucose (70-99) mg/dl Estimat Average Glucose 120 mg/dl Hemoglobin A1c 5.8 H (4.5-5.6) % Calcium 9.2 (8.6-10.3) mg/dl Phosphorus 2.9 (2.5-4.9) mg/dl Magnesium 1.8 (1.7-2.4) mg/dl Total Bilirubin (0.2-1.0) mg/dl AST (13-39) U/L ALT (7-52) U/L Alkaline Phosphatase (34-104) U/L Troponin I High Sens (0-14) pg/ml B-Natriuretic Peptide (0-100) pg/ml Total Protein (6.0-8.3) gm/dl Albumin (3.4-5.0) gm/dl Globulin (2.5-4.0) gm/dl Albumin/Globulin Ratio (0.9-2) Triglycerides 71 (0-150) mg/dl Cholesterol 211 H (0-200) mg/dl LDL Cholesterol, Calc 145 mg/dl VLDL Cholesterol, Calc 14 (0-30) mg/dl HDL Cholesterol 52 mg/dl Cholesterol/HDL Ratio 4.1 (0-5) Procalcitonin (0-0.5) ng/ml TSH 1.182 (0.300-4.500) uIu/ml Urine Color Yellow Urine Appearance Clear (Clear) Urine pH 5.5 (4.5-7.5) Ur Specific [place] 1.008 (1.000-1.030) Urine Protein Negative (Negative) Urine Glucose (UA) Negative (Negative) Urine Ketones Negative (Negative) Urine Blood Negative (Negative) Urine Nitrite Negative (Negative) Urine Bilirubin Negative (Negative) Urine Urobilinogen Negative (Negative) Ur Leukocyte Esterase Negative (Negative) Adenovirus (PCR) (NotDetected) B. pertussis DNA (PCR) (NotDetected) B.parapertussis DNA PCR (NotDetected) C. pneumoniae DNA (PCR) (NotDetected) Coronavirus OC43 (PCR) (NotDetected) Coronavirus HKU1 (PCR) (NotDetected) Coronavirus 229E (PCR) (NotDetected) SARS-CoV-2 (PCR) (NotDetected) Coronavirus NL63 (PCR) (NotDetected) Human Metapneumovir PCR (NotDetected) Influenza Type A (PCR) (NotDetected) Influenza Type B (PCR) (NotDetected) M. pneumoniae (PCR) (NotDetected) Parainfluenza 1 (PCR) (NotDetected) Parainfluenza 2 (PCR) (NotDetected) Parainfluenza 3 (PCR) (NotDetected) Parainfluenza 4 (PCR) (NotDetected) RSV (PCR) (NotDetected) Entero/Rhino (PCR) (NotDetected) 08/28/24 08/28/24 08/28/24 Range/Units 20:12 15:55 15:25 WBC 8.62 (4.8-10.8) K/ul RBC 5.46 H (4.20-5.40) M/uL Hgb 15.4 (12.0-16.0) g/dl Hct 47.7 H (37.0-47.0) % MCV 87.4 (80.0-100.0) fL MCH 28.2 (25.0-34.0) pg MCHC 32.3 (32.0-36.0) g/dL RDW Std Deviation 48.0 H (36.4-46.3) fL RDW Coeff of Stephan 15.2 H (11.5-14.5) % Plt Count 269 (130-400) K/uL MPV 11.0 (9.4-12.4) fL Immature Gran % (Auto) 0.3 % Neut % (Auto) 63.5 % Lymph % (Auto) 26.7 % [place] % (Auto) 7.4 % Eos % (Auto) 1.4 % Baso % (Auto) 0.7 % Neut # (Auto) 5.47 (1.40-6.50) K/uL Lymph # (Auto) 2.30 (1.20-3.40) K/uL [place] # (Auto) 0.64 H (0.11-0.59) K/uL Eos # (Auto) 0.12 (0.00-0.50) K/uL Baso # (Auto) 0.06 (0.00-0.20) K/uL Immature Gran # (Auto) 0.03 (0.01-0.20) K/uL PT 11.4 (9.0-12.0) Seconds INR 1.1 (0.9-1.1) APTT 37 H (21-31) Seconds PTT Ratio 1.4 Heparin Anti-Xa, Unfract (0.3-0.7) IU/ml VBG pH 7.44 H (7.36-7.41) VBG pCO2 37 L (38-50) mmHg VBG pO2 37 mmHg VBG HCO3 25 mmol/L VBG O2 Saturation 67.1 % VBG Base Excess 1.1 mEq/L Sodium 143 (136-145) mmol/L Potassium 3.8 (3.5-5.1) mmol/L Chloride 109 H (98-107) mmol/L Carbon Dioxide 25 (21-32) mmol/L Anion Gap 9 (3-11) BUN 15 (6-23) mg/dl Creatinine 0.95 (0.6-1.2) mg/dl Est Cr Clr Drug Dosing 49.4 ml/min eGFR 61.33 BUN/Creatinine Ratio 15.8 (10-20) Glucose 120 H (70-99(Fasting)) mg/dl POC Glucose 116 H (70-99) mg/dl Estimat Average Glucose mg/dl Hemoglobin A1c (4.5-5.6) % Calcium 9.6 (8.6-10.3) mg/dl Phosphorus (2.5-4.9) mg/dl Magnesium 2.0 (1.7-2.4) mg/dl Total Bilirubin 1.0 (0.2-1.0) mg/dl AST 16 (13-39) U/L ALT 8 (7-52) U/L Alkaline Phosphatase 74 (34-104) U/L Troponin I High Sens 7.8 (0-14) pg/ml B-Natriuretic Peptide 437 H (0-100) pg/ml Total Protein 6.8 (6.0-8.3) gm/dl Albumin 4.2 (3.4-5.0) gm/dl Globulin 2.6 (2.5-4.0) gm/dl Albumin/Globulin Ratio 1.6 (0.9-2) Triglycerides (0-150) mg/dl Cholesterol (0-200) mg/dl LDL Cholesterol, Calc mg/dl VLDL Cholesterol, Calc (0-30) mg/dl HDL Cholesterol mg/dl Cholesterol/HDL Ratio (0-5) Procalcitonin (0-0.5) ng/ml TSH (0.300-4.500) uIu/ml Urine Color Urine Appearance (Clear) Urine pH (4.5-7.5) Ur Specific [place] (1.000-1.030) Urine Protein (Negative) Urine Glucose (UA) (Negative) Urine Ketones (Negative) Urine Blood (Negative) Urine Nitrite (Negative) Urine Bilirubin (Negative) Urine Urobilinogen (Negative) Ur Leukocyte Esterase (Negative) Adenovirus (PCR) (NotDetected) B. pertussis DNA (PCR) (NotDetected) B.parapertussis DNA PCR (NotDetected) C. pneumoniae DNA (PCR) (NotDetected) Coronavirus OC43 (PCR) (NotDetected) Coronavirus HKU1 (PCR) (NotDetected) Coronavirus 229E (PCR) (NotDetected) SARS-CoV-2 (PCR) (NotDetected) Coronavirus NL63 (PCR) (NotDetected) Human Metapneumovir PCR (NotDetected) Influenza Type A (PCR) (NotDetected) Influenza Type B (PCR) (NotDetected) M. pneumoniae (PCR) (NotDetected) Parainfluenza 1 (PCR) (NotDetected) Parainfluenza 2 (PCR) (NotDetected) Parainfluenza 3 (PCR) (NotDetected) Parainfluenza 4 (PCR) (NotDetected) RSV (PCR) (NotDetected) Entero/Rhino (PCR) (NotDetected) 08/28/24 08/28/24 Range/Units 15:24 15:12 WBC (4.8-10.8) K/ul RBC (4.20-5.40) M/uL Hgb (12.0-16.0) g/dl Hct (37.0-47.0) % MCV (80.0-100.0) fL MCH (25.0-34.0) pg MCHC (32.0-36.0) g/dL RDW Std Deviation (36.4-46.3) fL RDW Coeff of Stephan (11.5-14.5) % Plt Count (130-400) K/uL MPV (9.4-12.4) fL Immature Gran % (Auto) % Neut % (Auto) % Lymph % (Auto) % [place] % (Auto) % Eos % (Auto) % Baso % (Auto) % Neut # (Auto) (1.40-6.50) K/uL Lymph # (Auto) (1.20-3.40) K/uL [place] # (Auto) (0.11-0.59) K/uL Eos # (Auto) (0.00-0.50) K/uL Baso # (Auto) (0.00-0.20) K/uL Immature Gran # (Auto) (0.01-0.20) K/uL PT (9.0-12.0) Seconds INR (0.9-1.1) APTT (21-31) Seconds PTT Ratio Heparin Anti-Xa, Unfract (0.3-0.7) IU/ml VBG pH (7.36-7.41) VBG pCO2 (38-50) mmHg VBG pO2 mmHg VBG HCO3 mmol/L VBG O2 Saturation % VBG Base Excess mEq/L Sodium (136-145) mmol/L Potassium (3.5-5.1) mmol/L Chloride (98-107) mmol/L Carbon Dioxide (21-32) mmol/L Anion Gap (3-11) BUN (6-23) mg/dl Creatinine (0.6-1.2) mg/dl Est Cr Clr Drug Dosing ml/min eGFR BUN/Creatinine Ratio (10-20) Glucose (70-99(Fasting)) mg/dl POC Glucose (70-99) mg/dl Estimat Average Glucose mg/dl Hemoglobin A1c (4.5-5.6) % Calcium (8.6-10.3) mg/dl Phosphorus (2.5-4.9) mg/dl Magnesium (1.7-2.4) mg/dl Total Bilirubin (0.2-1.0) mg/dl AST (13-39) U/L ALT (7-52) U/L Alkaline Phosphatase (34-104) U/L Troponin I High Sens (0-14) pg/ml B-Natriuretic Peptide (0-100) pg/ml Total Protein (6.0-8.3) gm/dl Albumin (3.4-5.0) gm/dl Globulin (2.5-4.0) gm/dl Albumin/Globulin Ratio (0.9-2) Triglycerides (0-150) mg/dl Cholesterol (0-200) mg/dl LDL Cholesterol, Calc mg/dl VLDL Cholesterol, Calc (0-30) mg/dl HDL Cholesterol mg/dl Cholesterol/HDL Ratio (0-5) Procalcitonin < 0.02 (0-0.5) ng/ml TSH (0.300-4.500) uIu/ml Urine Color Urine Appearance (Clear) Urine pH (4.5-7.5) Ur Specific [place] (1.000-1.030) Urine Protein (Negative) Urine Glucose (UA) (Negative) Urine Ketones (Negative) Urine Blood (Negative) Urine Nitrite (Negative) Urine Bilirubin (Negative) Urine Urobilinogen (Negative) Ur Leukocyte Esterase (Negative) Adenovirus (PCR) Not Detected (NotDetected) B. pertussis DNA (PCR) Not Detected (NotDetected) B.parapertussis DNA PCR Not Detected (NotDetected) C. pneumoniae DNA (PCR) Not Detected (NotDetected) Coronavirus OC43 (PCR) Not Detected (NotDetected) Coronavirus HKU1 (PCR) Not Detected (NotDetected) Coronavirus 229E (PCR) Not Detected (NotDetected) SARS-CoV-2 (PCR) Not Detected (NotDetected) Coronavirus NL63 (PCR) Not Detected (NotDetected) Human Metapneumovir PCR Not Detected (NotDetected) Influenza Type A (PCR) Not Detected (NotDetected) Influenza Type B (PCR) Not Detected (NotDetected) M. pneumoniae (PCR) Not Detected (NotDetected) Parainfluenza 1 (PCR) Not Detected (NotDetected) Parainfluenza 2 (PCR) Not Detected (NotDetected) Parainfluenza 3 (PCR) Not Detected (NotDetected) Parainfluenza 4 (PCR) Not Detected (NotDetected) RSV (PCR) Not Detected (NotDetected) Entero/Rhino (PCR) Not Detected (NotDetected) Medications Administered Current Inpatient Medications Acetaminophen (Acetaminophen 325 Mg Tab) 650 mg PO Q4H PRN PRN Reason: Pain or Fever Stop: 09/27/24 17:22 Al Hydrox/Mg Hydrox/Simethicone (Aluminum/Magnesium Susp 30 Ml Udc) 15 ml PO Q4H PRN PRN Reason: Dyspepsia Stop: 09/27/24 17:22 Benzonatate (Benzonatate 100 Mg Capsule) 100 mg PO TID JEAN-PIERRE Stop: 09/27/24 20:59 Last Admin: 08/29/24 08:34 Dose: 100 mg Dextrose (Dextrose 50% 50 Ml Syringe) 25 - 50 ml IV UD PRN; Protocol PRN Reason: Hypoglycemia Protocol Stop: 09/27/24 17:22 Furosemide (Furosemide 40 Mg/4 Ml Vial) 40 mg IV QAM JEAN-PIERRE Stop: 09/28/24 08:59 Last Admin: 08/29/24 08:34 Dose: 40 mg Glucagon (Glucagon For Inj 1 Mg Vial) 1 mg SQ UD PRN; Protocol PRN Reason: Hypoglycemia Protocol Stop: 09/27/24 17:22 Glucose (Glucose 40% Gel 15 Gm Tube) 15 - 30 gm PO UD PRN; Protocol PRN Reason: Hypoglycemia Protocol Stop: 09/27/24 17:22 Glucose (Glucose 10 Tab/Tube) 4 - 8 tab PO UD PRN; Protocol PRN Reason: Hypoglycemia Protocol Stop: 09/27/24 17:22 Guaifenesin (Guaifenesin 600 Mg Tabcr) 600 mg PO Q12 JEAN-PIERRE Stop: 09/27/24 20:59 Last Admin: 08/29/24 08:34 Dose: 600 mg Ceftriaxone Sodium (Rocephin) 2,000 mg in 50 mls @ 100 mls/hr IV Q24H JEAN-PIERRE Stop: 08/30/24 17:59 Last Infusion: 08/28/24 19:11 Dose: Infused Doxycycline Hyclate 100 mg/ (Dextrose) 100 mls @ 50 mls/hr IV BID JEAN-PIERRE Stop: 08/30/24 20:59 Last Infusion: 08/29/24 11:27 Dose: Infused Heparin Sodium/Dextrose (Heparin Sodium/Dextrose) 25,000 units in 500 mls @ 19 mls/hr IV .Q24H JEAN-PIERRE; Protocol Stop: 09/27/24 17:44 Last Titration: 08/29/24 09:39 Dose: 950 units/hr, 19 mls/hr Methylprednisolone 40 mg/ (Syringe) 0.64 mls @ 1.5 mls/min IV Q12H JEAN-PIERRE Stop: 09/28/24 05:59 Last Admin: 08/29/24 05:28 Dose: 1.5 mls/min Insulin Aspart (Insulin Aspart Per Unit Charge) 0 units SC ACHS JEAN-PIERRE Stop: 09/27/24 20:59 Last Admin: 08/29/24 12:14 Dose: 7 units Levalbuterol HCl (Levalbuterol 1.25 Mg/3 Ml Neb) 1.25 mg NEB Q4R JEAN-PIERRE Stop: 09/27/24 18:59 Last Admin: 08/29/24 11:28 Dose: 1.25 mg Metoprolol Tartrate (Metoprolol Tartrate 1 Mg/Ml Vial) 5 mg IV Q4 PRN PRN Reason: afib rvr Stop: 09/27/24 19:59 Metoprolol Tartrate (Metoprolol Tartrate 25 Mg Tab) 25 mg PO TID JEAN-PIERRE Stop: 09/28/24 13:59 Miscellaneous (Carbohydrates For Hypoglycemia ) 15 - 30 gm PO UD PRN PRN Reason: Hypoglycemia Protocol Stop: 09/27/24 17:22
[2024-08-29] MEDS: METOPROLOL TARTRATE 25 MG TAB PO SCH (13:53)
[2024-08-29 18:47] LABS: ANTI-Xa, UFH(UnfractionatedHep 0.51 IU/ml (0.3-0.7)
[2024-08-29 19:36] LABS: Adenovirus F 40/41 PCR Not Detected (NotDetected); Astrovirus PCR Not Detected (NotDetected); Campylobacter PCR Not Detected (NotDetected); Cryptosporidium PCR Not Detected (NotDetected); Cyclospora cayetanensis PCR Not Detected (NotDetected); Entamoeba histolytica PCR Not Detected (NotDetected); Enteroaggregative E.coli(EAEC) Not Detected (NotDetected); Enteropathogenic E.coli (EPEC) Not Detected (NotDetected); Enterotoxigenic E.coli (ETEC) Not Detected (NotDetected); Giardia lamblia PCR Not Detected (NotDetected); Norovirus GI/GII PCR Not Detected (NotDetected); Plesiomonas shigelloides PCR Not Detected (NotDetected); Rotavirus A PCR Not Detected (NotDetected); Salmonella PCR Not Detected (NotDetected); Sapovirus PCR Not Detected (NotDetected); Shiga-like Toxin E.coli (STEC) Not Detected (NotDetected); Shigella/Enteroinvasive E.coli Not Detected (NotDetected); Vibrio cholerae PCR Not Detected (NotDetected); Vibrio species PCR Not Detected (NotDetected); Yersinia enterocolitica PCR Not Detected (NotDetected)
[2024-08-30 07:28] LABS: Hematocrit (blood only) 42.9 % (37.0-47.0); Hemoglobin 14.4 g/dl (12.0-16.0); Mean Corpuscular Hemoglobin 28.8 pg (25.0-34.0); Mean Corpuscular Hgb Conc 33.6 g/dL (32.0-36.0); Mean Corpuscular Volume 85.8 fL (80.0-100.0); Mean Platelet Volume 11.4 fL (9.4-12.4); Platelet Count 275 K/uL (130-400); RDW Coefficient of Variation 15.2 % (11.5-14.5); RDW Standard Deviation 47.4 fL (36.4-46.3); White Blood Count 13.62 K/ul (4.8-10.8)
[2024-08-30 07:46] LABS: ANTI-Xa, UFH(UnfractionatedHep 0.47 IU/ml (0.3-0.7); BUN Creatinine Ratio 29.5 (10-20); Calcium 9.5 mg/dl (8.6-10.3); Creatinine Clr Calc Pharmacy 51.4 ml/min; Magnesium 1.8 mg/dl (1.7-2.4); Phosphorus 3.8 mg/dl (2.5-4.9); Potassium 3.9 mmol/L (3.5-5.1)
--- NOTE | 2024-08-30 08:12 | Cardiology Progress Note ---
Date of Service August 30, 2024 Assessment & Plan (1) Atrial fibrillation with rapid ventricular response: (2) Acute URI: (3) Acute dyspnea: (4) Chronic heart failure with preserved ejection fraction (HFpEF): (5) Pulmonary vascular congestion: (6) Tricuspid valve mass: Plan Assessment: 79 year old female presents with one week of acutely worsening dyspnea, URI symptoms and a productive cough with greenish sputum, known history of A-fib, now A-fib with RVR. Cardiology requested for further evaluation Plan: 1. Atrial fibrillation with RVR -Known history of A-fib. Self discontinued medications several months ago which has likely been contributing to her slowly progressive dyspnea, outside of her acute URI symptoms -Rates remains greater than 100bpm. Will increase metoprolol tartrate to 25mg PO TID -Continue Heparin gtt at this time for anticoagulation. [id number] score of 7. She was previously on Eliquis and is agreeable to restart when appropriate when appropriate during course of hospitalization, continue heparin gtt for now. -Echocardiogram pending -Continue to monitor on telemetry. 2. Acute URI 3. Acute dyspnea 4. Chronic HFpEF 5. Pulmonary vascular congestion -acute dyspnea is multifactorial in the setting of an acute infections process and A-fib with RVR. -Does not demonstrate significant overload on today's exam; however, given chest xray, would cautiously diurese, continue Furosemide 40mg IV Daily -Strict I&O, Daily weights on standing scale, close monitoring of serum electrolytes and renal function. Low sodium diet. -Continued management of possible pneumonia per primary team with antibiotics, steroids and nebulizer treatments. 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 Patient has been seen by CT surgery, and has opted to not pursue surgical intervention. -Will obtain echocardiogram today to assess overall structure, function, progression of valvular disease. 08/30/2024: -Patient demonstrating clinical improvement. -Heart rates above target this morning not unexpected in the setting of an acute infectious process. continue Metoprolol tartrate 25mg PO TID -Continue Heparin gtt at this time, recommend transition to Eliquis 5mg PO BID prior to discharge. -Continue furosemide 40mg IV daily, cautiously diurese in the setting of an acute infectious process. -Strict I&O, Daily weights on standing scale, close monitoring of serum electrolytes and renal function. Low sodium diet. -Continued management of possible pneumonia per primary team with antibiotics, steroids and nebulizer treatments. -Echocardiogram obtained yesterday demonstrates a reduction in LVEF compared to prior. Now 45-50%. Patient was in A-fib with RVR at time of study. Mild concentric LVH, severely dilated left atrium. Moderate to severe MR, again seen mass on the septal tricuspid leaflet as noted before. Trace TR. No suggestion of pulmonary HTN Case has been discussed with Dr. Walters. Further recommendations regarding plan of care as per his assessment. I spent a total of 30 minutes on the date of service in preparation, delivery, documentation of the care provided to the patient excluding any time spent in the performance of separately billed services. ROBYN King [facility] Admission and Anticipated Discharge Date Admission Date: August 28, 2024 Supervising Physician Co-Signing Physician Notes I have personally performed a history and physical examination on the patient. I have reviewed the advance practitioner's documentation, and I agree with, and take responsibility for the plan of care. 79-year-old female presents to the emergency department due to shortness of breath. Discontinued all medications approximately 3 months prior to admission. States "I got fed up taking all these pills". Diagnosed with pneumonia and acute heart failure with mildly reduced LV function. Heart rate improved with initiation of beta-luis armando therapy. Permanent atrial fibrillation noted. Echocardiogram reveals mild LV systolic dysfunction with moderate to severe mitral regurgitation. Tricuspid valve mass unchanged with compared to prior study. Recommend treatment of underlying pneumonia as per internal medicine. Discontinue metoprolol tartrate in favor of Toprol-XL 50 mg twice daily. Gentle diuresis, Lasix 40 mg IV daily. Monitor fluid balance, daily, GFR, and electrolytes. IV heparin may be transition back to p.o. Eliquis this evening. Reviewed importance of compliance with current medical therapies. All questions answered to patient's satisfaction. I spent a total of 30 minutes on the date of service in preparation, delivery, and documentation of the care provided to this patient, excluding any time spent in the performance of separately billed services. Cezar Walters DO, [facility] Subjective 08/30/2024:Patient seen and examined in follow up today. Feeling much better. Denies any cardiac complaints. Labs, vitals, diagnostics, telemetry and documentation reviewed. Telemetry reviewed showing A-fib rates 90-110bpm. No acute events overngiht Weight down 10kg per I&O report, question accuracy Review of Systems Review of Systems: All systems reviewed & are unremarkable except as noted in HPI & below Physical Exam Constitutional: well developed, well nourished and + ill appearing; no acute distress Neck: normal visual inspection and trachea midline Respiratory: normal respiratory effort and + cough; no respiratory distress and no labored breathing Auscultation: + wheezes (exp. wheezes throughout); no crackles, no rales and no rhonchi Cardiovascular: Rate/Rhythm: + tachycardic and + irregularly irregular Heart Sounds: normal S1, normal S2 and + murmur (+1/6 systolic) Vessels: dorsalis pedis pulses present; no JVD Extremities: no edema Skin: no rashes, warm and dry + ecchymosis (large area of ecchymosis to the right upper ext. biceps region) Psychiatric: A+Ox3, euthymic affect Results & Data Vital Signs (Past 12 Hours) Vital Signs Temp Pulse Resp BP Pulse Ox O2 Del Method 08/30/24 07:25 93 H 18 93 Room Air 08/30/24 07:00 36.6 C 117 H 16 142/78 H 94 Room Air 08/30/24 02:51 36.9 C 112 H 16 144/74 H 94 Room Air 08/29/24 22:22 96 H 18 94 Room Air 08/29/24 22:14 36.9 C 114 H 21 146/68 H 96 Room Air 08/29/24 20:15 Room Air Laboratory Results CBC 08/30/24 Range/Units 06:40 WBC 13.62 H (4.8-10.8) K/ul RBC 5.00 (4.20-5.40) M/uL Hgb 14.4 (12.0-16.0) g/dl Hct 42.9 (37.0-47.0) % Plt Count 275 (130-400) K/uL Comprehensive Metabolic Panel 08/30/24 Range/Units 06:40 Sodium 139 (136-145) mmol/L Potassium 3.9 (3.5-5.1) mmol/L Chloride 104 (98-107) mmol/L Carbon Dioxide 22 (21-32) mmol/L BUN 26 H (6-23) mg/dl Creatinine 0.88 (0.6-1.2) mg/dl Glucose 171 H (70-99(Fasting)) mg/dl Calcium 9.5 (8.6-10.3) mg/dl Intake and Output 08/29/24 08/30/24 08/30/24 22:59 06:59 14:59 Intake Total 464.483 / 1481.750 304.901 / 1481.750 149.467 / 149.467 Output Total 150 / 351 Balance 463.483 / 1130.750 154.901 / 1130.750 149.467 / 149.467 Intake: IV 224.483 / 641.750 184.901 / 641.750 149.467 / 149.467 Doxycycline Hyclate 100 mg In 100 / 200 Dextrose 5% Mini-B 100 ml @ 50 mls/hr IV BID [facility] Rx#:[id number] Heparin Sodium/Dextrose 25,000 174.483 / 391.750 84.901 / 391.750 149.467 / 149.467 units In 500 ml @ 950 UNITS/HR 19 mls/hr IV .Q24H [facility] Rx#: [id number] cefTRIAXone SODIUM 2,000 mg In 50 / 50 50 ml @ 100 mls/hr IV Q24H [facility] Rx#:[id number] Oral 240 / 840 120 / 840 Output: Urine 150 / 350 # Bowel Movements / 0 / Other: # Unmeasured Voids 2 2 Weight 79.2 kg Weight Measurement Method Built in [facility]
--- NOTE | 2024-08-30 08:52 | Hospitalist Progress Note ---
Date of Service August 30, 2024 Assessment & Plan (1) Pulmonary vascular congestion: Plan Acute on chronic heart failure with preserved ejection fraction A-fib RVR Medication non compliance Likely secondary to medical noncompliance and possibly triggered by pulmonary infection. Admitting CXR with pulmonary vascular congestion, BNP elevated, patient with shortness of breath worsening over the last few weeks. Patient used to take eliquis, metoprolol, Lasix, Aldactone, Imdur, atorvastatin. Heparin drip. -> switch to eliquis 5 mg bid tonight Started on IV Lasix 40 mg IV daily - cont. for now Restarted po metoprolol 25 mg tid, as needed IV metoprolol. -> transition to toprol XL Telemetry monitoring. Strict I's and O's, fluid restriction of 1800 mL a day. Echo obtained - A-fib with RVR on study. LV systolic function is mildly reduced.LVEF 45 to 50%. Mild concentric LVH. LA is severely dilated. Aortic valve is trileaflet. Mild aortic regurg. 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 There is trace tricuspid regurg. Doppler findings do not suggest pulmonary hypertension. Cardiology consulted Recommend treatment of underlying pneumonia as per internal medicine. Discontinue metoprolol tartrate in favor of Toprol-XL 50 mg twice daily. Gentle diuresis, Lasix 40 mg IV daily. Monitor fluid balance, daily, GFR, and priscilla ctrolytes. IV heparin may be transition back to p.o. Eliquis this evening. Reviewed importance of compliance with current medical therapies. Possible pneumonia Mild asthma exacerbation Patient presents with shortness of breath and cough with greenish sputum for about a week. Rhonchi and wheeze on exam on admission. Started on Rocephin and doxycycline, follow sputum and blood culture. solu medrol and jean-pierre duoneb Repeat chest imaging in about 6 weeks time to document resolution. Other chronic medical condition: HTN, HLD, T2DM, Hypothyroidism current A1c 5.8%, repeat lipid profile - ldl 145 Repeat TSH 1.18 will likely need statin restarted, continue to titrate cardiac medications. DVT prophylaxis: heparin drip DNI/DNI Admission and Anticipated Discharge Date Admission Date: August 28, 2024 Subjective Patient seen in follow-up of shortness of breath Found to be in A-fib with RVR in the ED Stopped all her medications several months ago Concern for possible pneumonia as well Currently sitting up in bed, in no acute distress, reports feeling much better overall Continues to have a cough No chest pain abdominal pain, no nausea vomiting Seen by cardiology - plan to switch from IV heparin to eliquis tonight Review of Systems Review of Systems: All systems reviewed & are unremarkable except as noted in Subjective Physical Exam Physical Exam: GENERAL: elderly F WD/WN in NAD HEENT: NC/ AT, EOMI NECK: supple CV: irregular, mildly tachycardic- improved RESPIRATORY: No accessory muscle use. b/l crackles ABDOMEN: Soft, bowel sounds present, nontender, no distention. NEURO: awake, alert, answers appropriately, No facial asymmetry, Speech is clear, Moves extremities. EXTREMITIES: trace to 1+ ble edema, no erythema seen. Results & Data Results & Data Vital Signs (Past 12 Hours) Vital Signs Temp Pulse Resp BP Pulse Ox O2 Del Method 08/30/24 07:25 93 H 18 93 Room Air 08/30/24 07:00 36.6 C 117 H 16 142/78 H 94 Room Air 08/30/24 02:51 36.9 C 112 H 16 144/74 H 94 Room Air 08/29/24 22:22 96 H 18 94 Room Air 08/29/24 22:14 36.9 C 114 H 21 146/68 H 96 Room Air Laboratory Results 08/30/24 08/30/24 08/29/24 Range/Units 07:13 06:40 Unknown WBC 13.62 H (4.8-10.8) K/ul RBC 5.00 (4.20-5.40) M/uL Hgb 14.4 (12.0-16.0) g/dl Hct 42.9 (37.0-47.0) % MCV 85.8 (80.0-100.0) fL MCH 28.8 (25.0-34.0) pg MCHC 33.6 (32.0-36.0) g/dL RDW Std Deviation 47.4 H (36.4-46.3) fL RDW Coeff of Stephan 15.2 H (11.5-14.5) % Plt Count 275 (130-400) K/uL MPV 11.4 (9.4-12.4) fL Heparin Anti-Xa, Unfract 0.47 (0.3-0.7) IU/ml Sodium 139 (136-145) mmol/L Potassium 3.9 (3.5-5.1) mmol/L Chloride 104 (98-107) mmol/L Carbon Dioxide 22 (21-32) mmol/L Anion Gap 13 H (3-11) BUN 26 H (6-23) mg/dl Creatinine 0.88 (0.6-1.2) mg/dl Est Cr Clr Drug Dosing 51.4 ml/min eGFR 67.22 BUN/Creatinine Ratio 29.5 H (10-20) Glucose 171 H (70-99(Fasting)) mg/dl POC Glucose 151 H (70-99) mg/dl Calcium 9.5 (8.6-10.3) mg/dl Phosphorus 3.8 (2.5-4.9) mg/dl Magnesium 1.8 (1.7-2.4) mg/dl Stl C. cayetanensis PCR Not Detected (NotDetected) Stool Rotavirus A PCR Not Detected (NotDetected) Stl Adenov F 40/41 PCR Not Detected (NotDetected) Stool Astrovirus (PCR) Not Detected (NotDetected) Stool Campylobacter PCR Not Detected (NotDetected) Stool Cryptosporidium PCR Not Detected (NotDetected) Stl E.coli Shiga Tox PCR Not Detected (NotDetected) Stl Enterotoxigenic E PCR Not Detected (NotDetected) Stool EPEC (PCR) Not Detected (NotDetected) Stool EAEC (PCR) Not Detected (NotDetected) Stl E. histolytica PCR Not Detected (NotDetected) Stool Giardia Lamblia PCR Not Detected (NotDetected) Stool Salmonella PCR Not Detected (NotDetected) Stool Sapovirus (PCR) Not Detected (NotDetected) Stl P. shigelloides PCR Not Detected (NotDetected) Stl Shigella/EIEC PCR Not Detected (NotDetected) St Y.enterocolitica PCR Not Detected (NotDetected) Stool Vibrio (PCR) Not Detected (NotDetected) Stl Vibrio cholerae PCR Not Detected (NotDetected) Stl Norovirus GI/GII PCR Not Detected (NotDetected) 08/29/24 08/29/24 08/29/24 Range/Units 20:25 17:59 16:13 WBC (4.8-10.8) K/ul RBC (4.20-5.40) M/uL Hgb (12.0-16.0) g/dl Hct (37.0-47.0) % MCV (80.0-100.0) fL MCH (25.0-34.0) pg MCHC (32.0-36.0) g/dL RDW Std Deviation (36.4-46.3) fL RDW Coeff of Stephan (11.5-14.5) % Plt Count (130-400) K/uL MPV (9.4-12.4) fL Heparin Anti-Xa, Unfract 0.51 (0.3-0.7) IU/ml Sodium (136-145) mmol/L Potassium (3.5-5.1) mmol/L Chloride (98-107) mmol/L Carbon Dioxide (21-32) mmol/L Anion Gap (3-11) BUN (6-23) mg/dl Creatinine (0.6-1.2) mg/dl Est Cr Clr Drug Dosing ml/min eGFR BUN/Creatinine Ratio (10-20) Glucose (70-99(Fasting)) mg/dl POC Glucose 152 H 155 H (70-99) mg/dl Calcium (8.6-10.3) mg/dl Phosphorus (2.5-4.9) mg/dl Magnesium (1.7-2.4) mg/dl Stl C. cayetanensis PCR (NotDetected) Stool Rotavirus A PCR (NotDetected) Stl Adenov F 40/41 PCR (NotDetected) Stool Astrovirus (PCR) (NotDetected) Stool Campylobacter PCR (NotDetected) Stool Cryptosporidium PCR (NotDetected) Stl E.coli Shiga Tox PCR (NotDetected) Stl Enterotoxigenic E PCR (NotDetected) Stool EPEC (PCR) (NotDetected) Stool EAEC (PCR) (NotDetected) Stl E. histolytica PCR (NotDetected) Stool Giardia Lamblia PCR (NotDetected) Stool Salmonella PCR (NotDetected) Stool Sapovirus (PCR) (NotDetected) Stl P. shigelloides PCR (NotDetected) Stl Shigella/EIEC PCR (NotDetected) St Y.enterocolitica PCR (NotDetected) Stool Vibrio (PCR) (NotDetected) Stl Vibrio cholerae PCR (NotDetected) Stl Norovirus GI/GII PCR (NotDetected) 08/29/24 08/29/24 Range/Units 11:06 08:22 WBC (4.8-10.8) K/ul RBC (4.20-5.40) M/uL Hgb (12.0-16.0) g/dl Hct (37.0-47.0) % MCV (80.0-100.0) fL MCH (25.0-34.0) pg MCHC (32.0-36.0) g/dL RDW Std Deviation (36.4-46.3) fL RDW Coeff of Stephan (11.5-14.5) % Plt Count (130-400) K/uL MPV (9.4-12.4) fL Heparin Anti-Xa, Unfract 0.53 (0.3-0.7) IU/ml Sodium (136-145) mmol/L Potassium (3.5-5.1) mmol/L Chloride (98-107) mmol/L Carbon Dioxide (21-32) mmol/L Anion Gap (3-11) BUN (6-23) mg/dl Creatinine (0.6-1.2) mg/dl Est Cr Clr Drug Dosing ml/min eGFR BUN/Creatinine Ratio (10-20) Glucose (70-99(Fasting)) mg/dl POC Glucose 211 H (70-99) mg/dl Calcium (8.6-10.3) mg/dl Phosphorus (2.5-4.9) mg/dl Magnesium (1.7-2.4) mg/dl Stl C. cayetanensis PCR (NotDetected) Stool Rotavirus A PCR (NotDetected) Stl Adenov F 40/41 PCR (NotDetected) Stool Astrovirus (PCR) (NotDetected) Stool Campylobacter PCR (NotDetected) Stool Cryptosporidium PCR (NotDetected) Stl E.coli Shiga Tox PCR (NotDetected) Stl Enterotoxigenic E PCR (NotDetected) Stool EPEC (PCR) (NotDetected) Stool EAEC (PCR) (NotDetected) Stl E. histolytica PCR (NotDetected) Stool Giardia Lamblia PCR (NotDetected) Stool Salmonella PCR (NotDetected) Stool Sapovirus (PCR) (NotDetected) Stl P. shigelloides PCR (NotDetected) Stl Shigella/EIEC PCR (NotDetected) St Y.enterocolitica PCR (NotDetected) Stool Vibrio (PCR) (NotDetected) Stl Vibrio cholerae PCR (NotDetected) Stl Norovirus GI/GII PCR (NotDetected) Medications Administered Current Inpatient Medications Acetaminophen (Acetaminophen 325 Mg Tab) 650 mg PO Q4H PRN PRN Reason: Pain or Fever Stop: 09/27/24 17:22 Al Hydrox/Mg Hydrox/Simethicone (Aluminum/Magnesium Susp 30 Ml Udc) 15 ml PO Q4H PRN PRN Reason: Dyspepsia Stop: 09/27/24 17:22 Benzonatate (Benzonatate 100 Mg Capsule) 100 mg PO TID JEAN-PIERRE Stop: 09/27/24 20:59 Last Admin: 08/30/24 08:07 Dose: 100 mg Dextrose (Dextrose 50% 50 Ml Syringe) 25 - 50 ml IV UD PRN; Protocol PRN Reason: Hypoglycemia Protocol Stop: 09/27/24 17:22 Furosemide (Furosemide 40 Mg/4 Ml Vial) 40 mg IV QAM JEAN-PIERRE Stop: 09/28/24 08:59 Last Admin: 08/30/24 08:07 Dose: 40 mg Glucagon (Glucagon For Inj 1 Mg Vial) 1 mg SQ UD PRN; Protocol PRN Reason: Hypoglycemia Protocol Stop: 09/27/24 17:22 Glucose (Glucose 40% Gel 15 Gm Tube) 15 - 30 gm PO UD PRN; Protocol PRN Reason: Hypoglycemia Protocol Stop: 09/27/24 17:22 Glucose (Glucose 10 Tab/Tube) 4 - 8 tab PO UD PRN; Protocol PRN Reason: Hypoglycemia Protocol Stop: 09/27/24 17:22 Guaifenesin (Guaifenesin 600 Mg Tabcr) 600 mg PO Q12 JEAN-PIERRE Stop: 09/27/24 20:59 Last Admin: 08/30/24 08:07 Dose: 600 mg Ceftriaxone Sodium (Rocephin) 2,000 mg in 50 mls @ 100 mls/hr IV Q24H [facility] Stop: 08/30/24 17:59 Last Infusion: 08/29/24 17:42 Dose: Infused Doxycycline Hyclate 100 mg/ (Dextrose) 100 mls @ 50 mls/hr IV BID JEAN-PIERRE Stop: 08/30/24 20:59 Last Admin: 08/30/24 08:08 Dose: 50 mls/hr Heparin Sodium/Dextrose (Heparin Sodium/Dextrose) 25,000 units in 500 mls @ 19 mls/hr IV .Q24H [facility]; Protocol Stop: 09/27/24 17:44 Last Titration: 08/30/24 07:53 Dose: 950 units/hr, 19 mls/hr Methylprednisolone 40 mg/ (Syringe) 0.64 mls @ 1.5 mls/min IV Q12H [facility] Stop: 09/28/24 05:59 Last Admin: 08/30/24 05:25 Dose: 1.5 mls/min Insulin Aspart (Insulin Aspart Per Unit Charge) 0 units SC ACHS JEAN-PIERRE Stop: 09/27/24 20:59 Last Admin: 08/30/24 08:06 Dose: 2 units Levalbuterol HCl (Levalbuterol 1.25 Mg/3 Ml Neb) 1.25 mg NEB Q4R [facility] Stop: 09/27/24 18:59 Last Admin: 08/30/24 07:53 Dose: Not Given Metoprolol Tartrate (Metoprolol Tartrate 1 Mg/Ml Vial) 5 mg IV Q4 PRN PRN Reason: afib rvr Stop: 09/27/24 19:59 Metoprolol Tartrate (Metoprolol Tartrate 25 Mg Tab) 25 mg PO TID JEAN-PIERRE Stop: 09/28/24 13:59 Last Admin: 08/30/24 08:07 Dose: 25 mg Miscellaneous (Carbohydrates For Hypoglycemia ) 15 - 30 gm PO UD PRN PRN Reason: Hypoglycemia Protocol Stop: 09/27/24 17:22
[2024-08-30] MEDS: METOPROLOL SUCC 50MG EXT REL TAB PO SCH (12:21)
--- NOTE | 2024-08-30 20:26 | Electrocardiogram Report ---
Test Reason : Blood Pressure : */* mmHG Vent. Rate : 122 BPM Atrial Rate : * BPM P-R Int : * ms QRS Dur : 70 ms QT Int : 316 ms P-R-T Axes : * 29 83 degrees QTcB Int : 450 ms Atrial fibrillation with rapid ventricular response with premature ventricular or aberrantly conducte d complexes Abnormal ECG When compared with ECG of 22-Aug-2023 05:23, No significant change Confirmed by Torsten Victoria ([id number]) on 08/30/2024 8:26:02 PM Referred By: REFERRED SELF Confirmed By: Torsten Victoria
[2024-08-30] MEDS: APIXABAN 5 MG TABLET PO SCH (21:00)
[2024-08-31 07:47] LABS: Basophils # (auto) 0.01 K/uL (0.00-0.20); Basophils % (auto) 0.1 %; Hematocrit (blood only) 41.6 % (37.0-47.0); Hemoglobin 14.1 g/dl (12.0-16.0); Immature Granulocytes # (auto) 0.03 K/uL (0.01-0.20); Immature Granulocytes % (auto) 0.3 %; Lymphocytes # (auto) 2.27 K/uL (1.20-3.40); Lymphocytes % (auto) 20.1 %; Mean Corpuscular Hemoglobin 28.8 pg (25.0-34.0); Mean Corpuscular Hgb Conc 33.9 g/dL (32.0-36.0); Mean Corpuscular Volume 84.9 fL (80.0-100.0); Mean Platelet Volume 11.5 fL (9.4-12.4); Monocytes # (auto) 0.88 K/uL (0.11-0.59); Monocytes % (auto) 7.8 %; Neutrophils # (auto) 8.08 K/uL (1.40-6.50); Neutrophils % (auto) 71.7 %; Platelet Count 280 K/uL (130-400); RDW Coefficient of Variation 15.3 % (11.5-14.5); RDW Standard Deviation 47.1 fL (36.4-46.3); White Blood Count 11.27 K/ul (4.8-10.8)
--- NOTE | 2024-08-31 07:48 | Hospitalist Progress Note ---
Date of Service August 31, 2024 Assessment & Plan (1) Pulmonary vascular congestion: Plan Acute on chronic heart failure with preserved ejection fraction A-fib RVR Medication non compliance Likely secondary to medical noncompliance and possibly triggered by pulmonary infection. Admitting CXR with pulmonary vascular congestion, BNP elevated, patient with shortness of breath worsening over the last few weeks. Patient used to take eliquis, metoprolol, Lasix, Aldactone, Imdur, atorvastatin. Heparin drip. -> switched to eliquis 5 mg bid Started on IV Lasix 40 mg IV daily - cont. for now, adding spironolactone 12.5 mg Restarted po metoprolol -> increase to Toprol XL 75 mg bid, also adding digoxin 0.125 MWF Telemetry monitoring. Strict I's and O's, fluid restriction of 1800 mL a day. Echo obtained - A-fib with RVR on study. LV systolic function is mildly reduced.LVEF 45 to 50%. Mild concentric LVH. LA is severely dilated. Aortic valve is trileaflet. Mild aortic regurg. 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 There is trace tricuspid regurg. Doppler findings do not suggest pulmonary hypertension. Cardiology consulted Possible pneumonia Mild asthma exacerbation Patient presents with shortness of breath and cough with greenish sputum for about a week. Rhonchi and wheeze on exam on admission. Started on Rocephin and doxycycline, follow sputum and blood culture. Blood cultx - NGTD Unable to obtain sputum cultx solu medrol and jean-pierre duoneb Repeat chest imaging in about 6 weeks time to document resolution. Other chronic medical condition: HTN, HLD, T2DM, Hypothyroidism current A1c 5.8%, repeat lipid profile - ldl 145 Repeat TSH 1.18 Resumed statin - lipitor 80 mg daily DVT prophylaxis: eliquis Admission and Anticipated Discharge Date Admission Date: August 28, 2024 Subjective Patient seen in follow-up of shortness of breath Found to be in A-fib with RVR in the ED Stopped all her medications several months ago Concern for possible pneumonia as well Currently sitting up in bed, in no acute distress, reports feeling much better today Continues to have a cough but improved No chest pain abdominal pain, no nausea vomiting Cardiology following - started eliquis last night, metoprolol increased today and digoxin was added Review of Systems Review of Systems: All systems reviewed & are unremarkable except as noted in Subjective Physical Exam Physical Exam: GENERAL: elderly F WD/WN in NAD HEENT: NC/ AT, EOMI NECK: supple CV: irregular, mildly tachycardic - improved RESPIRATORY: No accessory muscle use. b/l crackles improved, minimal exp. wheezes ABDOMEN: Soft, bowel sounds present, nontender, no distention. NEURO: awake, alert, answers appropriately, No facial asymmetry, Speech is clear, Moves extremities. EXTREMITIES: trace to 1+ b/l LE edema, no erythema seen. Results & Data Results & Data Vital Signs (Past 12 Hours) Vital Signs Temp Pulse Pulse Resp BP BP Pulse Ox 08/31/24 07:40 36.5 C 102 H 18 121/73 96 08/31/24 07:16 99 H 08/31/24 07:02 93 H 18 94 08/31/24 03:56 36.5 C 102 H 17 107/65 97 08/30/24 22:54 36.5 C 117 H 21 150/68 H 96 08/30/24 22:54 111 H 08/30/24 22:34 104 H 18 97 08/30/24 20:05 111 H 17 94 O2 Del Method 08/31/24 07:40 Room Air 08/31/24 07:16 08/31/24 07:02 Room Air 08/31/24 03:56 Room Air 08/30/24 22:54 Room Air 08/30/24 22:54 08/30/24 22:34 Room Air 08/30/24 20:05 Room Air Laboratory Results 08/31/24 08/31/24 08/31/24 Range/Units 16:03 11:12 07:19 WBC (4.8-10.8) K/ul RBC (4.20-5.40) M/uL Hgb (12.0-16.0) g/dl Hct (37.0-47.0) % MCV (80.0-100.0) fL MCH (25.0-34.0) pg MCHC (32.0-36.0) g/dL RDW Std Deviation (36.4-46.3) fL RDW Coeff of Stephan (11.5-14.5) % Plt Count (130-400) K/uL MPV (9.4-12.4) fL Immature Gran % (Auto) % Neut % (Auto) % Lymph % (Auto) % [place] % (Auto) % Eos % (Auto) % Baso % (Auto) % Neut # (Auto) (1.40-6.50) K/uL Lymph # (Auto) (1.20-3.40) K/uL [place] # (Auto) (0.11-0.59) K/uL Eos # (Auto) (0.00-0.50) K/uL Baso # (Auto) (0.00-0.20) K/uL Immature Gran # (Auto) (0.01-0.20) K/uL Heparin Anti-Xa, Unfract (0.3-0.7) IU/ml Sodium (136-145) mmol/L Potassium (3.5-5.1) mmol/L Chloride (98-107) mmol/L Carbon Dioxide (21-32) mmol/L Anion Gap (3-11) BUN (6-23) mg/dl Creatinine (0.6-1.2) mg/dl Est Cr Clr Drug Dosing ml/min eGFR BUN/Creatinine Ratio (10-20) Glucose (70-99(Fasting)) mg/dl POC Glucose 156 H 135 H 105 H (70-99) mg/dl Calcium (8.6-10.3) mg/dl Phosphorus (2.5-4.9) mg/dl Magnesium (1.7-2.4) mg/dl 08/31/24 08/30/24 Range/Units 07:02 20:19 WBC 11.27 H (4.8-10.8) K/ul RBC 4.90 (4.20-5.40) M/uL Hgb 14.1 (12.0-16.0) g/dl Hct 41.6 (37.0-47.0) % MCV 84.9 (80.0-100.0) fL MCH 28.8 (25.0-34.0) pg MCHC 33.9 (32.0-36.0) g/dL RDW Std Deviation 47.1 H (36.4-46.3) fL RDW Coeff of Stephan 15.3 H (11.5-14.5) % Plt Count 280 (130-400) K/uL MPV 11.5 (9.4-12.4) fL Immature Gran % (Auto) 0.3 % Neut % (Auto) 71.7 % Lymph % (Auto) 20.1 % [place] % (Auto) 7.8 % Eos % (Auto) 0.0 % Baso % (Auto) 0.1 % Neut # (Auto) 8.08 H (1.40-6.50) K/uL Lymph # (Auto) 2.27 (1.20-3.40) K/uL [place] # (Auto) 0.88 H (0.11-0.59) K/uL Eos # (Auto) 0.00 (0.00-0.50) K/uL Baso # (Auto) 0.01 (0.00-0.20) K/uL Immature Gran # (Auto) 0.03 (0.01-0.20) K/uL Heparin Anti-Xa, Unfract 0.98 H* (0.3-0.7) IU/ml Sodium 140 (136-145) mmol/L Potassium 3.9 (3.5-5.1) mmol/L Chloride 105 (98-107) mmol/L Carbon Dioxide 26 (21-32) mmol/L Anion Gap 9 (3-11) BUN 30 H (6-23) mg/dl Creatinine 0.92 (0.6-1.2) mg/dl Est Cr Clr Drug Dosing 49.2 ml/min eGFR 63.73 BUN/Creatinine Ratio 32.6 H (10-20) Glucose 110 H (70-99(Fasting)) mg/dl POC Glucose 143 H (70-99) mg/dl Calcium 9.3 (8.6-10.3) mg/dl Phosphorus 4.3 (2.5-4.9) mg/dl Magnesium 1.9 (1.7-2.4) mg/dl Medications Administered Current Inpatient Medications Acetaminophen (Acetaminophen 325 Mg Tab) 650 mg PO Q4H PRN PRN Reason: Pain or Fever Stop: 09/27/24 17:22 Al Hydrox/Mg Hydrox/Simethicone (Aluminum/Magnesium Susp 30 Ml Udc) 15 ml PO Q4H PRN PRN Reason: Dyspepsia Stop: 09/27/24 17:22 Apixaban (Apixaban 5 Mg Tablet) 5 mg PO BID JEAN-PIERRE Stop: 09/29/24 20:59 Last Admin: 08/30/24 21:00 Dose: 5 mg Benzonatate (Benzonatate 100 Mg Capsule) 100 mg PO TID JEAN-PIERRE Stop: 09/27/24 20:59 Last Admin: 08/30/24 21:01 Dose: 100 mg Dextrose (Dextrose 50% 50 Ml Syringe) 25 - 50 ml IV UD PRN; Protocol PRN Reason: Hypoglycemia Protocol Stop: 09/27/24 17:22 Furosemide (Furosemide 40 Mg/4 Ml Vial) 40 mg IV QAM JEAN-PIERRE Stop: 09/28/24 08:59 Last Admin: 08/30/24 08:07 Dose: 40 mg Glucagon (Glucagon For Inj 1 Mg Vial) 1 mg SQ UD PRN; Protocol PRN Reason: Hypoglycemia Protocol Stop: 09/27/24 17:22 Glucose (Glucose 40% Gel 15 Gm Tube) 15 - 30 gm PO UD PRN; Protocol PRN Reason: Hypoglycemia Protocol Stop: 09/27/24 17:22 Glucose (Glucose 10 Tab/Tube) 4 - 8 tab PO UD PRN; Protocol PRN Reason: Hypoglycemia Protocol Stop: 09/27/24 17:22 Guaifenesin (Guaifenesin 600 Mg Tabcr) 600 mg PO Q12 JEAN-PIERRE Stop: 09/27/24 20:59 Last Admin: 08/30/24 21:01 Dose: 600 mg Methylprednisolone 40 mg/ (Syringe) 0.64 mls @ 1.5 mls/min IV QAM [facility] Stop: 09/30/24 08:59 Insulin Aspart (Insulin Aspart Per Unit Charge) 0 units SC ACHS JEAN-PIERRE Stop: 09/27/24 20:59 Last Admin: 08/30/24 21:02 Dose: Not Given Levalbuterol HCl (Levalbuterol 1.25 Mg/3 Ml Neb) 1.25 mg NEB Q4R JEAN-PIERRE Stop: 09/27/24 18:59 Last Admin: 08/31/24 07:02 Dose: 1.25 mg Metoprolol Succinate (Metoprolol Succ 50mg Ext Rel Tab) 50 mg PO BID [facility] Stop: 09/29/24 11:14 Last Admin: 08/30/24 21:01 Dose: 50 mg Metoprolol Tartrate (Metoprolol Tartrate 1 Mg/Ml Vial) 5 mg IV Q4 PRN PRN Reason: afib rvr Stop: 09/27/24 19:59 Miscellaneous (Carbohydrates For Hypoglycemia ) 15 - 30 gm PO UD PRN PRN Reason: Hypoglycemia Protocol Stop: 09/27/24 17:22
[2024-08-31 08:08] LABS: BUN Creatinine Ratio 32.6 (10-20); Calcium 9.3 mg/dl (8.6-10.3); Creatinine Clr Calc Pharmacy 49.2 ml/min; Magnesium 1.9 mg/dl (1.7-2.4); Phosphorus 4.3 mg/dl (2.5-4.9); Potassium 3.9 mmol/L (3.5-5.1)
[2024-08-31 08:36] LABS: ANTI-Xa, UFH(UnfractionatedHep 0.98 IU/ml (0.3-0.7)
[2024-08-31] MEDS: methylPREDNISolone 40 MG in SYRINGE 0 ML IV SCH (08:54)
--- NOTE | 2024-08-31 10:17 | Cardiology Progress Note ---
Date of Service August 31, 2024 Assessment & Plan (1) Atrial fibrillation with rapid ventricular response: (2) Acute URI: (3) Acute dyspnea: (4) Chronic heart failure with preserved ejection fraction (HFpEF): (5) Pulmonary vascular congestion: (6) Tricuspid valve mass: (7) Coronary artery disease: Plan Assessment: 79 year old female presents with one week of acutely worsening dyspnea, URI symptoms and a productive cough with greenish sputum, known history of A-fib, now A-fib with RVR. Cardiology requested for further evaluation Plan: 1. Atrial fibrillation with RVR -Known history of A-fib. Self discontinued medications several months ago which has likely been contributing to her slowly progressive dyspnea, outside of her acute URI symptoms -Rates remains greater than 100bpm. Will increase metoprolol tartrate to 25mg PO TID -Continue Heparin gtt at this time for anticoagulation. [id number] score of 7. She was previously on Eliquis and is agreeable to restart when appropriate when appropriate during course of hospitalization, continue heparin gtt for now. -Echocardiogram pending -Continue to monitor on telemetry. 2. Acute URI 3. Acute dyspnea 4. Chronic HFpEF 5. Pulmonary vascular congestion -acute dyspnea is multifactorial in the setting of an acute infections process and A-fib with RVR. -Does not demonstrate significant overload on today's exam; however, given chest xray, would cautiously diurese, continue Furosemide 40mg IV Daily -Strict I&O, Daily weights on standing scale, close monitoring of serum electrolytes and renal function. Low sodium diet. -Continued management of possible pneumonia per primary team with antibiotics, steroids and nebulizer treatments. 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 Patient has been seen by CT surgery, and has opted to not pursue surgical intervention. -Will obtain echocardiogram today to assess overall structure, function, progression of valvular disease. 08/30/2024: -Patient demonstrating clinical improvement. -Heart rates above target this morning not unexpected in the setting of an acute infectious process. continue Metoprolol tartrate 25mg PO TID -Continue Heparin gtt at this time, recommend transition to Eliquis 5mg PO BID prior to discharge. -Continue furosemide 40mg IV daily, cautiously diurese in the setting of an acute infectious process. -Strict I&O, Daily weights on standing scale, close monitoring of serum electrolytes and renal function. Low sodium diet. -Continued management of possible pneumonia per primary team with antibiotics, steroids and nebulizer treatments. -Echocardiogram obtained yesterday demonstrates a reduction in LVEF compared to prior. Now 45-50%. Patient was in A-fib with RVR at time of study. Mild concentric LVH, severely dilated left atrium. Moderate to severe MR, again seen mass on the septal tricuspid leaflet as noted before. Trace TR. No suggestion of pulmonary HTN 08/31/24: Patient with ongoing cough/wheeze/rhonchi. Continue antibiotics, steroids, nebs per hospitalist. Edema and volume status improving. Continue furosemide 40 mg IV today. Resume oral spironolactone 12.5 mg daily. (Patient was to be taking 25 mg at home) Afib with elevated rates, but improving. Eliquis resumed last night at 5 mg BID. IV heparin discontinued. Increase metoprolol succinate to 75 mg BID this morning (prior home dose). She was also previously taking digoxin 125 mcg, which could be an option if needed if rates do not continue to improve. History of CAD s/p JAILENE to the RCA, LAD, and 1st diagonal. Patient previously on Plavix (with Eliquis). Her last coronary intervention was in 2020. Acceptable to start ASA 81 mg rather than Plavix. Continue metoprolol as above. Resume atorvastatin 80 mg daily Pending BP response to above medication adjustments, consider adding ARB or Entresto given reduced LVEF. (Intolerant to KOLE due to cough) Case has been discussed with Dr. Toussaint Further recommendations regarding plan of care as per his assessment. I spent a total of 45 minutes on the date of service in preparation, delivery, documentation of the care provided to the patient excluding any time spent in the performance of separately billed services. Sara Nunez PA-C [facility] Admission and Anticipated Discharge Date Admission Date: August 28, 2024 Supervising Physician Co-Signing Physician Notes I have personally performed a history and physical examination on the patient. I have reviewed the advance practitioner's documentation, and I agree with, and take responsibility for the plan of care. Ambulatory in her room and hallway today. Edema in lower extremity swelling has improved substantially. Still with mild rhonchorous cough but improved. No chest pains or tachypalpitations. Metoprolol succinate increased for further heart rate control will add digoxin to her regimen as well at previous dosing 0.125 mg Saturday Subjective Patient resting in chair. Ongoing cough, wheeze and SOB reported, but improved from admission. No chest pain. Edema also improved. No palpitations or tachypalpitations. No dizzines. Review of Systems Review of Systems: All systems reviewed & are unremarkable except as noted in HPI & below Physical Exam Constitutional: well developed and well nourished; no acute distress Neck: normal visual inspection and trachea midline Respiratory: normal respiratory effort and + cough; no respiratory distress and no labored breathing Auscultation: + rhonchi and + wheezes (exp. wheezes throughout); no crackles and no rales Cardiovascular: Rate/Rhythm: + tachycardic and + irregularly irregular Heart Sounds: normal S1, normal S2 and + murmur (+1/6 systolic) Vessels: dorsalis pedis pulses present; no JVD Extremities: no edema Gastrointestinal (Abdomen): normal bowel sounds, soft, nontender, no hepatosplenomegaly Skin: no rashes, warm and dry Psychiatric: A+Ox3, euthymic affect Results & Data Vital Signs (Past 12 Hours) Vital Signs Temp Pulse Pulse Resp BP BP Pulse Ox 08/31/24 07:40 36.5 C 102 H 18 121/73 96 08/31/24 07:16 99 H 08/31/24 07:02 93 H 18 94 08/31/24 03:56 36.5 C 102 H 17 107/65 97 08/30/24 22:54 36.5 C 117 H 21 150/68 H 96 08/30/24 22:54 111 H 08/30/24 22:34 104 H 18 97 O2 Del Method 08/31/24 07:40 Room Air 08/31/24 07:16 08/31/24 07:02 Room Air 08/31/24 03:56 Room Air 08/30/24 22:54 Room Air 08/30/24 22:54 08/30/24 22:34 Room Air Laboratory Results CBC 08/31/24 Range/Units 07:02 WBC 11.27 H (4.8-10.8) K/ul RBC 4.90 (4.20-5.40) M/uL Hgb 14.1 (12.0-16.0) g/dl Hct 41.6 (37.0-47.0) % Plt Count 280 (130-400) K/uL Neut # (Auto) 8.08 H (1.40-6.50) K/uL Lymph # (Auto) 2.27 (1.20-3.40) K/uL Wright # (Auto) 0.88 H (0.11-0.59) K/uL Eos # (Auto) 0.00 (0.00-0.50) K/uL Baso # (Auto) 0.01 (0.00-0.20) K/uL Comprehensive Metabolic Panel 08/31/24 Range/Units 07:02 Sodium 140 (136-145) mmol/L Potassium 3.9 (3.5-5.1) mmol/L Chloride 105 (98-107) mmol/L Carbon Dioxide 26 (21-32) mmol/L BUN 30 H (6-23) mg/dl Creatinine 0.92 (0.6-1.2) mg/dl Glucose 110 H (70-99(Fasting)) mg/dl Calcium 9.3 (8.6-10.3) mg/dl Intake and Output 08/30/24 08/31/24 08/31/24 22:59 06:59 14:59 Intake Total 789.217 / 1188.684 150 / 1188.684 Output Total 700 / 700 Balance 89.217 / 488.684 150 / 488.684 Intake: IV 249.217 / 498.684 Heparin Sodium/Dextrose 25,000 249.217 / 398.684 units In 500 ml @ 950 UNITS/HR 19 mls/hr IV .Q24H [facility] Rx#: [id number] Oral 540 / 690 150 / 690 Output: Urine 700 / 700 # Bowel Movements 0 / 0 Other: # Unmeasured Voids 2 1 Weight 79.4 kg Weight Measurement Method Built in [facility] Diagnostic Findings Telemetry reviewed: Afib with variable rates 90-110's Echo reviewed from 08/29/24: Afib with RVR noted during study LVEF mildly reduced at 45-50% Mild concentric LVH Severely dilated left atrium. Moderate to severe MR 0.9 x 0.9 cm mass attached to the basilar portion of the tricupsid valve leaflet. (previously reported) Trace TR No pulm hypertension (7) Coronary artery disease Associated angina: without angina Coronary Disease-Associated Artery/Lesion type: zuni artery [place] vs. transplanted heart: zuni heart Qualified Code(s): I25.10 - Atherosclerotic heart disease of zuni coronary artery without angina pectoris
[2024-08-31] MEDS: METOPROLOL SUCC 25MG EXT REL TAB PO ONE (11:21)
[2024-08-31] MEDS: SPIRONOLACTONE 12.5 MG TAB PO SCH (11:22)
[2024-08-31] MEDS: ASPIRIN 81 MG ECTAB PO SCH (12:20)
[2024-08-31] MEDS: ATORVASTATIN 40 MG TAB PO SCH (12:20)
--- NOTE | 2024-08-31 15:08 | Electrocardiogram Report ---
Test Reason : Blood Pressure : */* mmHG Vent. Rate : 108 BPM Atrial Rate : 110 BPM P-R Int : * ms QRS Dur : 86 ms QT Int : 370 ms P-R-T Axes : * 64 29 degrees QTcB Int : 495 ms Atrial fibrillation with rapid ventricular response with premature ventricular or aberrantly conducte d complexes Nonspecific ST abnormality Abnormal ECG When compared with ECG of 22-Aug-2023 05:23, No significant change Confirmed by Torsten Victoria ([id number]) on 08/31/2024 3:08:10 PM Referred By: REFERRED SELF Confirmed By: Torsten Victoria
[2024-08-31] MEDS: DIGOXIN 0.125 MG TAB PO SCH (16:07)
[2024-08-31] MEDS: METOPROLOL SUCC 25MG EXT REL TAB PO SCH (21:26)
[2024-09-01 07:42] LABS: Hematocrit (blood only) 42.1 % (37.0-47.0); Hemoglobin 14.1 g/dl (12.0-16.0); Mean Corpuscular Hemoglobin 28.9 pg (25.0-34.0); Mean Corpuscular Hgb Conc 33.5 g/dL (32.0-36.0); Mean Corpuscular Volume 86.3 fL (80.0-100.0); Mean Platelet Volume 11.7 fL (9.4-12.4); Platelet Count 268 K/uL (130-400); RDW Coefficient of Variation 15.2 % (11.5-14.5); RDW Standard Deviation 48.1 fL (36.4-46.3); Red Blood Count 4.88 M/uL (4.20-5.40); White Blood Count 10.17 K/ul (4.8-10.8)
[2024-09-01 08:00] LABS: BUN Creatinine Ratio 34.7 (10-20); Calcium 9.1 mg/dl (8.6-10.3); Creatinine Clr Calc Pharmacy 45.9 ml/min; Phosphorus 3.8 mg/dl (2.5-4.9); Potassium 3.7 mmol/L (3.5-5.1)
[2024-09-01] MEDS: METOPROLOL SUCC 50MG EXT REL TAB PO SCH (08:54)
--- NOTE | 2024-09-01 12:16 | Electrocardiogram Report ---
Test Reason : Blood Pressure : */* mmHG Vent. Rate : 111 BPM Atrial Rate : 250 BPM P-R Int : * ms QRS Dur : 88 ms QT Int : 354 ms P-R-T Axes : * 51 64 degrees QTcB Int : 481 ms Atrial fibrillation with rapid ventricular response with premature ventricular or aberrantly conducte d complexes Abnormal ECG When compared with ECG of 29-Aug-2024 04:43, (unconfirmed) No significant change Confirmed by Torsten Victoria ([id number]) on 09/01/2024 12:15:27 PM Referred By: REFERRED SELF Confirmed By: Torsten Victoria
--- NOTE | 2024-09-01 14:38 | Cardiology Progress Note ---
Date of Service September 01, 2024 Assessment & Plan (1) Atrial fibrillation with rapid ventricular response: (2) Acute URI: (3) Acute dyspnea: (4) Chronic heart failure with preserved ejection fraction (HFpEF): (5) Pulmonary vascular congestion: (6) Tricuspid valve mass: (7) Coronary artery disease: Plan Assessment: 79 year old female presents with one week of acutely worsening dyspnea, URI symptoms and a productive cough with greenish sputum, known history of A-fib, now A-fib with RVR. Cardiology requested for further evaluation Plan: 1. Atrial fibrillation with RVR -Known history of A-fib. Self discontinued medications several months ago which has likely been contributing to her slowly progressive dyspnea, outside of her acute URI symptoms -Rates remains greater than 100bpm. Will increase metoprolol tartrate to 25mg PO TID -Continue Heparin gtt at this time for anticoagulation. [id number] score of 7. She was previously on Eliquis and is agreeable to restart when appropriate when appropriate during course of hospitalization, continue heparin gtt for now. -Echocardiogram pending -Continue to monitor on telemetry. 2. Acute URI 3. Acute dyspnea 4. Chronic HFpEF 5. Pulmonary vascular congestion -acute dyspnea is multifactorial in the setting of an acute infections process and A-fib with RVR. -Does not demonstrate significant overload on today's exam; however, given chest xray, would cautiously diurese, continue Furosemide 40mg IV Daily -Strict I&O, Daily weights on standing scale, close monitoring of serum electrolytes and renal function. Low sodium diet. -Continued management of possible pneumonia per primary team with antibiotics, steroids and nebulizer treatments. 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 Patient has been seen by CT surgery, and has opted to not pursue surgical intervention. -Will obtain echocardiogram today to assess overall structure, function, progression of valvular disease. 08/30/2024: -Patient demonstrating clinical improvement. -Heart rates above target this morning not unexpected in the setting of an acute infectious process. continue Metoprolol tartrate 25mg PO TID -Continue Heparin gtt at this time, recommend transition to Eliquis 5mg PO BID prior to discharge. -Continue furosemide 40mg IV daily, cautiously diurese in the setting of an acute infectious process. -Strict I&O, Daily weights on standing scale, close monitoring of serum electrolytes and renal function. Low sodium diet. -Continued management of possible pneumonia per primary team with antibiotics, steroids and nebulizer treatments. -Echocardiogram obtained yesterday demonstrates a reduction in LVEF compared to prior. Now 45-50%. Patient was in A-fib with RVR at time of study. Mild concentric LVH, severely dilated left atrium. Moderate to severe MR, again seen mass on the septal tricuspid leaflet as noted before. Trace TR. No suggestion of pulmonary HTN 08/31/24: Patient with ongoing cough/wheeze/rhonchi. Continue antibiotics, steroids, nebs per hospitalist. Edema and volume status improving. Continue furosemide 40 mg IV today. Resume oral spironolactone 12.5 mg daily. (Patient was to be taking 25 mg at home) Afib with elevated rates, but improving. Eliquis resumed last night at 5 mg BID. IV heparin discontinued. Increase metoprolol succinate to 75 mg BID this morning (prior home dose). She was also previously taking digoxin 125 mcg, which could be an option if needed if rates do not continue to improve. History of CAD s/p JAILENE to the RCA, LAD, and 1st diagonal. Patient previously on Plavix (with Eliquis). Her last coronary intervention was in 2020. Acceptable to start ASA 81 mg rather than Plavix. Continue metoprolol as above. Resume atorvastatin 80 mg daily Pending BP response to above medication adjustments, consider adding ARB or Entresto given reduced LVEF. (Intolerant to KOLE due to cough) 09/01/24: Patient with persistent cough/wheeze/rhonchi today - ashtma exacerbation vs pneumonia questioned on admission. . Continue steroids, Mucinex per hospitalist team. Consider repeat chest xray. Volume status has improved with IV lasix. Patient reports significant diuresis/urination but does not appear this has been accurately measured. Hold IV lasix in AM. Reassess volume status and consider resuming oral furosemide 40 mg - 1 tab daily Spironolactone 12.5 mg daily resumed yesterday. Stable renal function/potassium this morning. Continue eliquis 5 mg BID for anticoagulation Metoprolol succinate increased to 100 mg BID this morning for ongoing rate control. digoxin also resumed yesterday at 125 mcg - 3 days per week Persistent/known afib. Rates are improving since admission. Continue ASA, statin for history of CAD. Given LVEF at 45-50%, start low dose Entresto and titrate as BP allows. Case has been discussed with Dr. Toussaint Further recommendations regarding plan of care as per his assessment. I spent a total of 35 minutes on the date of service in preparation, delivery, documentation of the care provided to the patient excluding any time spent in the performance of separately billed services. Sara Nunez PA-C [facility] Admission and Anticipated Discharge Date Admission Date: August 28, 2024 Supervising Physician Co-Signing Physician Notes I have personally performed a history and physical examination on the patient. I have reviewed the advance practitioner's documentation, and I agree with, and take responsibility for the plan of care. Subjective Patient resting in chair comfortably. Ongoing cough and wheeze noted. SOB improving. Ambulating in hallways with improved dyspnea yesterday. No chest pain. Edema improving. No dizziness or lightheadedness. No palpitations. Review of Systems Review of Systems: All systems reviewed & are unremarkable except as noted in HPI & below Physical Exam Constitutional: well developed and well nourished; no acute distress Neck: normal visual inspection and trachea midline Respiratory: normal respiratory effort and + cough; no respiratory distress and no labored breathing Auscultation: + rhonchi and + wheezes (exp. wheezes throughout); no crackles and no rales Cardiovascular: Rate/Rhythm: + tachycardic and + irregularly irregular Heart Sounds: normal S1, normal S2 and + murmur (+1/6 systolic) Vessels: dorsalis pedis pulses present; no JVD Extremities: no edema Gastrointestinal (Abdomen): normal bowel sounds, soft, nontender, no hepatosplenomegaly Skin: no rashes, warm and dry Psychiatric: A+Ox3, euthymic affect Results & Data Vital Signs (Past 12 Hours) Vital Signs Temp Pulse Pulse Resp BP Pulse Ox O2 Del Method 09/01/24 10:51 36.8 C 102 H 19 128/92 93 Room Air 09/01/24 10:04 91 H 16 97 Room Air 09/01/24 09:00 Room Air 09/01/24 07:51 36.5 C 105 H 17 150/70 H 99 Room Air 09/01/24 07:21 90 16 97 Room Air 09/01/24 05:36 95 H 09/01/24 03:29 36.4 C L 98 H 17 140/71 95 Room Air Laboratory Results CBC 09/01/24 Range/Units 06:47 WBC 10.17 (4.8-10.8) K/ul RBC 4.88 (4.20-5.40) M/uL Hgb 14.1 (12.0-16.0) g/dl Hct 42.1 (37.0-47.0) % Plt Count 268 (130-400) K/uL Comprehensive Metabolic Panel 09/01/24 Range/Units 06:47 Sodium 141 (136-145) mmol/L Potassium 3.7 (3.5-5.1) mmol/L Chloride 106 (98-107) mmol/L Carbon Dioxide 26 (21-32) mmol/L BUN 35 H (6-23) mg/dl Creatinine 1.01 (0.6-1.2) mg/dl Glucose 143 H (70-99(Fasting)) mg/dl Calcium 9.1 (8.6-10.3) mg/dl Intake and Output 08/31/24 09/01/24 09/01/24 22:59 06:59 14:59 Intake Total 240 / 880 440 / 880 Output Total 3 / 3 Balance 240 / 30 440 / 30 -3 / -3 Intake: Oral 240 / 880 440 / 880 Output: Urine 3 / 3 Other: # Unmeasured Voids 1 1 Weight 83.1 kg Weight Measurement Method Built in [facility] Diagnostic Findings Telemetry reviewed: Afib with variable rates ranging 90-120's. Medications Administered Current Inpatient Medications Acetaminophen (Acetaminophen 325 Mg Tab) 650 mg PO Q4H PRN PRN Reason: Pain or Fever Stop: 09/27/24 17:22 Al Hydrox/Mg Hydrox/Simethicone (Aluminum/Magnesium Susp 30 Ml Udc) 15 ml PO Q4H PRN PRN Reason: Dyspepsia Stop: 09/27/24 17:22 Apixaban (Apixaban 5 Mg Tablet) 5 mg PO BID DAO Stop: 09/29/24 20:59 Last Admin: 09/01/24 08:56 Dose: 5 mg Aspirin (Aspirin 81 Mg Ectab) 81 mg PO QAM DAO Stop: 09/30/24 10:44 Last Admin: 09/01/24 08:55 Dose: 81 mg Atorvastatin Calcium (Atorvastatin 40 Mg Tab) 80 mg PO QAM [facility] Stop: 09/30/24 10:44 Last Admin: 09/01/24 08:52 Dose: 80 mg Benzonatate (Benzonatate 100 Mg Capsule) 100 mg PO TID [facility] Stop: 09/27/24 20:59 Last Admin: 09/01/24 08:55 Dose: 100 mg Dextrose (Dextrose 50% 50 Ml Syringe) 25 - 50 ml IV UD PRN; Protocol PRN Reason: Hypoglycemia Protocol Stop: 09/27/24 17:22 Digoxin (Digoxin 0.125 Mg Tab) 0.125 mg PO [id number] [facility] Stop: 09/30/24 15:59 Last Admin: 08/31/24 16:07 Dose: 0.125 mg Furosemide (Furosemide 40 Mg/4 Ml Vial) 40 mg IV QAM [facility] Stop: 09/28/24 08:59 Last Admin: 09/01/24 08:50 Dose: 40 mg Glucagon (Glucagon For Inj 1 Mg Vial) 1 mg SQ UD PRN; Protocol PRN Reason: Hypoglycemia Protocol Stop: 09/27/24 17:22 Glucose (Glucose 40% Gel 15 Gm Tube) 15 - 30 gm PO UD PRN; Protocol PRN Reason: Hypoglycemia Protocol Stop: 09/27/24 17:22 Glucose (Glucose 10 Tab/Tube) 4 - 8 tab PO UD PRN; Protocol PRN Reason: Hypoglycemia Protocol Stop: 09/27/24 17:22 Guaifenesin (Guaifenesin 600 Mg Tabcr) 600 mg PO Q12 [facility] Stop: 09/27/24 20:59 Last Admin: 09/01/24 08:52 Dose: 600 mg Methylprednisolone 40 mg/ (Syringe) 0.64 mls @ 1.5 mls/min IV QAM [facility] Stop: 09/30/24 08:59 Last Admin: 09/01/24 08:58 Dose: 1.5 mls/min Insulin Aspart (Insulin Aspart Per Unit Charge) 0 units SC ACHS [facility] Stop: 09/27/24 20:59 Last Admin: 09/01/24 13:00 Dose: 2 units Levalbuterol HCl (Levalbuterol 1.25 Mg/3 Ml Neb) 1.25 mg NEB Q4R PRN PRN Reason: Shortness Of Breath Or Wheezin Stop: 09/27/24 14:59 Metoprolol Succinate (Metoprolol Succ 50mg Ext Rel Tab) 100 mg PO BID DAO Stop: 10/01/24 08:59 Last Admin: 09/01/24 08:54 Dose: 100 mg Metoprolol Tartrate (Metoprolol Tartrate 1 Mg/Ml Vial) 5 mg IV Q4 PRN PRN Reason: afib rvr Stop: 09/27/24 19:59 Miscellaneous (Carbohydrates For Hypoglycemia ) 15 - 30 gm PO UD PRN PRN Reason: Hypoglycemia Protocol Stop: 09/27/24 17:22 Spironolactone (Spironolactone 12.5 Mg Tab) 12.5 mg PO DAILY DAO Stop: 09/30/24 10:44 Last Admin: 09/01/24 08:53 Dose: 12.5 mg (7) Coronary artery disease Associated angina: without angina Coronary Disease-Associated Artery/Lesion type: [place] artery [place] vs. transplanted heart: [place] heart Qualified Code(s): I25.10 - Atherosclerotic heart disease of [place] coronary artery without angina pectoris
[2024-09-01] MEDS ORDERED: LEVALBUTEROL 1.25 MG/3 ML NEB NEB PRN (15:00)
--- NOTE | 2024-09-01 16:14 | Hospitalist Progress Note ---
Date of Service September 01, 2024 Assessment & Plan (1) Atrial fibrillation with rapid ventricular response: (2) Acute URI: (3) Acute on chronic heart failure with preserved ejection fraction: (4) Acute bronchospasm due to viral infection: (5) T2DM (type 2 diabetes mellitus): Plan Patient still somewhat rapid ventricular sponsor suspect most likely due to her respiratory status. Continue oral prednisone Reviewing record appears patient has been off antibiotics for the last 2 days, suspect this may be a viral infection, continue to monitor off antibiotics, no fever, no leukocytosis Continue diuresis Metoprolol increased to 100 mg 2 times daily for better heart rate control Communication with cardiology team, agreed with with plan of care Continue anticoagulation with Eliquis Continue to monitor glucose and cover with sliding scale as needed, increased glucose expected with prednisone use Admission and Anticipated Discharge Date Admission Date: August 28, 2024 Subjective Still somewhat tightness in her chest and a cough. Rates slightly improved Physical Exam Physical Exam: Constitutional: Alert, nontoxic HEENT: Mucous membranes moist. Lungs: Decreased, tight wheezes, poor airflow CV: S1-S2, irregular, mildly tachycardic Abdomen: Soft, nontender, nondistended Extremities: No significant edema Neuro: No focal deficits Psych: Cooperative, normal mood Results & Data Results & Data Vital Signs (Past 12 Hours) Vital Signs Temp Pulse Pulse Resp BP Pulse Ox O2 Del Method 09/01/24 15:21 36.4 C L 101 H 17 115/71 92 Room Air 09/01/24 13:04 96 H 09/01/24 10:51 36.8 C 102 H 19 128/92 93 Room Air 09/01/24 10:04 91 H 16 97 Room Air 09/01/24 09:00 Room Air 09/01/24 07:51 36.5 C 105 H 17 150/70 H 99 Room Air 09/01/24 07:21 90 16 97 Room Air 09/01/24 05:36 95 H Diagnostic Findings Reviewed imaging, laboratory and diagnostic studies. Pertinent findings as below. Creatinine 1.0 Electrolytes stable WBCs 10.1
[2024-09-01] MEDS: POTASSIUM CHLORIDE CRTAB 20 MEQ TABCR PO ONE (18:20)
[2024-09-01] MEDS: IPRATROPIUM BROMIDE NEB SOLN 0.02% 0.5MG/2.5ML VIAL NEB SCH (19:16)
[2024-09-01] MEDS: VALSARTAN/SACUBITRIL 26/24MG TAB PO SCH (20:36)
[2024-09-02 04:22] VITALS: TEMP 97.7
[2024-09-02 08:12] LABS: BUN Creatinine Ratio 38.6 (10-20); Calcium 9.1 mg/dl (8.6-10.3); Creatinine Clr Calc Pharmacy 52.3 ml/min; Potassium 4.4 mmol/L (3.5-5.1)
[2024-09-02] MEDS: FUROSEMIDE 40 MG TAB PO SCH (08:56)
[2024-09-02] MEDS: predniSONE 20 MG TAB PO SCH (08:59)
--- NOTE | 2024-09-02 10:24 | Cardiology Progress Note ---
Date of Service September 02, 2024 Assessment & Plan (1) Atrial fibrillation with rapid ventricular response: (2) Acute URI: (3) Acute dyspnea: (4) Chronic heart failure with preserved ejection fraction (HFpEF): (5) Pulmonary vascular congestion: (6) Tricuspid valve mass: (7) Coronary artery disease: Plan Assessment: 79 year old female presents with one week of acutely worsening dyspnea, URI symptoms and a productive cough with greenish sputum, known history of A-fib, now A-fib with RVR. Cardiology requested for further evaluation Plan: 1. Atrial fibrillation with RVR -Known history of A-fib. Self discontinued medications several months ago which has likely been contributing to her slowly progressive dyspnea, outside of her acute URI symptoms -Rates remains greater than 100bpm. Will increase metoprolol tartrate to 25mg PO TID -Continue Heparin gtt at this time for anticoagulation. [id number] score of 7. She was previously on Eliquis and is agreeable to restart when appropriate when appropriate during course of hospitalization, continue heparin gtt for now. -Echocardiogram pending -Continue to monitor on telemetry. 2. Acute URI 3. Acute dyspnea 4. Chronic HFpEF 5. Pulmonary vascular congestion -acute dyspnea is multifactorial in the setting of an acute infections process and A-fib with RVR. -Does not demonstrate significant overload on today's exam; however, given chest xray, would cautiously diurese, continue Furosemide 40mg IV Daily -Strict I&O, Daily weights on standing scale, close monitoring of serum electrolytes and renal function. Low sodium diet. -Continued management of possible pneumonia per primary team with antibiotics, steroids and nebulizer treatments. 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 Patient has been seen by CT surgery, and has opted to not pursue surgical intervention. -Will obtain echocardiogram today to assess overall structure, function, progression of valvular disease. 08/30/2024: -Patient demonstrating clinical improvement. -Heart rates above target this morning not unexpected in the setting of an acute infectious process. continue Metoprolol tartrate 25mg PO TID -Continue Heparin gtt at this time, recommend transition to Eliquis 5mg PO BID prior to discharge. -Continue furosemide 40mg IV daily, cautiously diurese in the setting of an acute infectious process. -Strict I&O, Daily weights on standing scale, close monitoring of serum electrolytes and renal function. Low sodium diet. -Continued management of possible pneumonia per primary team with antibiotics, steroids and nebulizer treatments. -Echocardiogram obtained yesterday demonstrates a reduction in LVEF compared to prior. Now 45-50%. Patient was in A-fib with RVR at time of study. Mild concentric LVH, severely dilated left atrium. Moderate to severe MR, again seen mass on the septal tricuspid leaflet as noted before. Trace TR. No suggestion of pulmonary HTN 08/31/24: Patient with ongoing cough/wheeze/rhonchi. Continue antibiotics, steroids, nebs per hospitalist. Edema and volume status improving. Continue furosemide 40 mg IV today. Resume oral spironolactone 12.5 mg daily. (Patient was to be taking 25 mg at home) Afib with elevated rates, but improving. Eliquis resumed last night at 5 mg BID. IV heparin discontinued. Increase metoprolol succinate to 75 mg BID this morning (prior home dose). She was also previously taking digoxin 125 mcg, which could be an option if needed if rates do not continue to improve. History of CAD s/p JAILENE to the RCA, LAD, and 1st diagonal. Patient previously on Plavix (with Eliquis). Her last coronary intervention was in 2020. Acceptable to start ASA 81 mg rather than Plavix. Continue metoprolol as above. Resume atorvastatin 80 mg daily Pending BP response to above medication adjustments, consider adding ARB or Entresto given reduced LVEF. (Intolerant to KOLE due to cough) 09/01/24: Patient with persistent cough/wheeze/rhonchi today - asthma exacerbation vs pneumonia questioned on admission. Continue steroids, Mucinex per hospitalist team. Consider repeat chest xray. Volume status has improved with IV Lasix. Patient reports significant diuresis/urination but does not appear this has been accurately measured. Hold IV Lasix in AM. Reassess volume status and consider resuming oral furosemide 40 mg - 1 tab daily Spironolactone 12.5 mg daily resumed yesterday. Stable renal function/potassium this morning. Continue Eliquis 5 mg BID for anticoagulation. Metoprolol succinate increased to 100 mg BID this morning for ongoing rate control. Digoxin also resumed yesterday at 125 mcg - 3 days per week. Persistent/known afib. Rates are improving since admission. Continue ASA, statin for history of CAD. Given LVEF at 45-50%, start low dose Entresto and titrate as BP allows. 09/02/24: Improving respiratory status. Still has expiratory wheeze, but clinically improving. Continue treatment per hospitalist. Volume status improved with IV Lasix. Dose held this morning. Resume oral furosemide 40 mg daily Continue spironolactone 12.5 mg daily stable renal function and electrolytes. Continue Eliquis 5 mg BID for anticoagulation Continue metoprolol succinate 100 mg BID and digoxin 125 mcg 3 days per week for rate control. Continue ASA and statin for history of CAD. Continue Entresto for borderline low LVEF. Further cardiac testing is not warranted at this time. Continue above medications on discharge. Will arrange 2-4 week cardiology appt at [facility] to re-establish care. 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 Toussaint Further recommendations regarding plan of care as per his assessment. I spent a total of 35 minutes on the date of service in preparation, delivery, documentation of the care provided to the patient excluding any time spent in the performance of separately billed services. Sara Nunez PA-C [facility] Cardiology [facility] Admission and Anticipated Discharge Date Admission Date: August 28, 2024 Supervising Physician Co-Signing Physician Notes Patient seen and personally examined. Chart, telemetry reviewed. Full assessment and plan as outlined above. Care and management personally endorsed Patient will promptly report any new symptoms or complaints Outpatient appointment being arranged Contact with question Subjective Patient resting in bed. Feeling "great". Hoping to go home today. Reports she was ambulating in the hallways without significant dyspnea yesterday. Cough and wheezing improving. No chest pain. No SOB at rest. HR's improved. Review of Systems Review of Systems: All systems reviewed & are unremarkable except as noted in HPI & below Physical Exam Constitutional: well developed and well nourished; no acute distress Neck: normal visual inspection and trachea midline Respiratory: normal respiratory effort and + cough; no respiratory distress and no labored breathing Auscultation: + wheezes (exp. wheezes throughout); no crackles, no rales and no rhonchi Cardiovascular: Rate/Rhythm: + irregularly irregular Heart Sounds: normal S1, normal S2 and + murmur (+1/6 systolic) Vessels: dorsalis pedis pulses present; no JVD Extremities: no edema Gastrointestinal (Abdomen): normal bowel sounds, soft, nontender, no hepatosplenomegaly Skin: no rashes, warm and dry Psychiatric: A+Ox3, euthymic affect Results & Data Vital Signs (Past 12 Hours) Vital Signs Temp Pulse Pulse Resp BP Pulse Ox O2 Del Method 09/02/24 07:36 88 24 124/79 93 Room Air 09/02/24 07:27 83 16 92 Room Air 09/02/24 03:46 36.5 C 95 H 18 127/84 97 Room Air 09/01/24 22:48 36.8 C 91 H 17 142/85 H 96 Room Air Laboratory Results Comprehensive Metabolic Panel 09/02/24 Range/Units 07:01 Sodium 138 (136-145) mmol/L Potassium 4.4 (3.5-5.1) mmol/L Chloride 107 (98-107) mmol/L Carbon Dioxide 25 (21-32) mmol/L BUN 34 H (6-23) mg/dl Creatinine 0.88 (0.6-1.2) mg/dl Glucose 109 H (70-99(Fasting)) mg/dl Calcium 9.1 (8.6-10.3) mg/dl Intake and Output 09/01/24 09/02/24 09/02/24 22:59 06:59 14:59 Intake Total 480 / 480 Balance 480 / 477 Intake: Oral 480 / 480 Other: # Unmeasured Voids 1 1 Weight 82.1 kg Weight Measurement Method Built in [facility] Diagnostic Findings Telemetry reviewed: Afib with rates around 90 bmp Medications Administered Current Inpatient Medications Acetaminophen (Acetaminophen 325 Mg Tab) 650 mg PO Q4H PRN PRN Reason: Pain or Fever Stop: 09/27/24 17:22 Al Hydrox/Mg Hydrox/Simethicone (Aluminum/Magnesium Susp 30 Ml Udc) 15 ml PO Q4H PRN PRN Reason: Dyspepsia Stop: 09/27/24 17:22 Apixaban (Apixaban 5 Mg Tablet) 5 mg PO BID [facility] Stop: 09/29/24 20:59 Last Admin: 09/02/24 08:55 Dose: 5 mg Aspirin (Aspirin 81 Mg Ectab) [facility] Stop: 09/30/24 10:44 Last Admin: 09/02/24 08:55 Dose: 81 mg Atorvastatin Calcium (Atorvastatin 40 Mg Tab) [facility] [place] Stop: 09/30/24 10:44 Last Admin: 09/02/24 08:56 Dose: 80 mg Benzonatate (Benzonatate 100 Mg Capsule) 100 mg PO TID [facility] Stop: 09/27/24 20:59 Last Admin: 09/02/24 08:56 Dose: 100 mg Dextrose (Dextrose 50% 50 Ml Syringe) 25 - 50 ml IV UD PRN; Protocol PRN Reason: Hypoglycemia Protocol Stop: 09/27/24 17:22 Digoxin (Digoxin 0.125 Mg Tab) 0.125 mg PO [id number]@1600 [facility] Stop: 09/30/24 15:59 Last Admin: 08/31/24 16:07 Dose: 0.125 mg Furosemide (Furosemide 40 Mg/4 Ml Vial) 40 mg IV QAM [facility] Stop: 09/28/24 08:59 Last Admin: 09/01/24 08:50 Dose: 40 mg Furosemide (Furosemide 40 Mg Tab) 40 mg PO QAM [facility] Stop: 10/02/24 08:59 Last Admin: 09/02/24 08:56 Dose: 40 mg Glucagon (Glucagon For Inj 1 Mg Vial) 1 mg SQ UD PRN; Protocol PRN Reason: Hypoglycemia Protocol Stop: 09/27/24 17:22 Glucose (Glucose 40% Gel 15 Gm Tube) 15 - 30 gm PO UD PRN; Protocol PRN Reason: Hypoglycemia Protocol Stop: 09/27/24 17:22 Glucose (Glucose 10 Tab/Tube) 4 - 8 tab PO UD PRN; Protocol PRN Reason: Hypoglycemia Protocol Stop: 09/27/24 17:22 Guaifenesin (Guaifenesin 600 Mg Tabcr) 600 mg PO Q12 DAO Stop: 09/27/24 20:59 Last Admin: 09/02/24 08:57 Dose: 600 mg Insulin Aspart (Insulin Aspart Per Unit Charge) 0 units SC ACHS DAO Stop: 09/27/24 20:59 Last Admin: 09/02/24 08:53 Dose: 3 units Ipratropium [place] (Ipratropium [place] Neb Soln 0.02% 0.5mg/2.5ml Vial) 0.5 mg NEB QIDR [facility] Stop: 10/01/24 18:59 Last Admin: 09/02/24 07:27 Dose: 0.5 mg Levalbuterol HCl (Levalbuterol 1.25 Mg/3 Ml Neb) 1.25 mg NEB Q4R PRN PRN Reason: Shortness Of Breath Or Wheezin Stop: 09/27/24 14:59 Metoprolol Succinate (Metoprolol Succ 50mg Ext Rel Tab) 100 mg PO BID DAO Stop: 10/01/24 08:59 Last Admin: 09/02/24 08:58 Dose: 100 mg Metoprolol Tartrate (Metoprolol Tartrate 1 Mg/Ml Vial) 5 mg IV Q4 PRN PRN Reason: afib rvr Stop: 09/27/24 19:59 Miscellaneous (Carbohydrates For Hypoglycemia ) 15 - 30 gm PO UD PRN PRN Reason: Hypoglycemia Protocol Stop: 09/27/24 17:22 Prednisone (Prednisone 20 Mg Tab) 40 mg PO DAILY DAO Stop: 10/02/24 08:59 Last Admin: 09/02/24 08:59 Dose: 40 mg Sacubitril/Valsartan (Valsartan/Sacubitril 26/24mg Tab) 1 tab PO BID DAO Stop: 10/01/24 20:59 Last Admin: 09/02/24 08:59 Dose: 1 tab Spironolactone (Spironolactone 12.5 Mg Tab) 12.5 mg PO DAILY DAO Stop: 09/30/24 10:44 Last Admin: 09/02/24 08:59 Dose: 12.5 mg (7) Coronary artery disease Associated angina: without angina Coronary Disease-Associated Artery/Lesion type: [place] artery [place] vs. transplanted heart: [place] heart Qualified Code(s): I25.10 - Atherosclerotic heart disease of [place] coronary artery without angina pectoris
[2024-09-02 10:36] VITALS: BP 126/76
[2024-09-02 11:16] VITALS: PULSE 98; RESP 16; O2SAT 93
--- NOTE | 2024-09-02 11:31 | Discharge Summary ---
Discharge Summary Date of Service September 02, 2024 Principal Dx & Hospital Course #1 = Principal Diagnosis (1) Atrial fibrillation with rapid ventricular response: (2) Acute URI: (3) Acute on chronic heart failure with preserved ejection fraction: (4) Acute bronchospasm due to viral infection: (5) Prediabetes: Plan Patient presenting the emergency room with cough and increased sputum. Also reported that she stopped taking her medications for atrial fibrillation a few months ago. She is having increasing dyspnea on exertion. Patient was noted to be in atrial fibrillation with rapid ventricular response and findings c onsistent with bronchospasm from an upper respiratory infection. Patient was cared for in the hospital. She was started back on her beta-luis armando for rate control. She was given some steroids and nebulizer treatments for bronchospasm. Cardiology consultation was obtained. They resumed her digoxin for rate control as well. Her metoprolol was slightly titrated upwards for better rate control. Patient responded well to steroids and nebulizer treatments. She was also given a little bit of diuresis with some decompensated heart failure in the setting of her rapid ventricular response. On the day of discharge she was on room air. She is up and ambulating the halls for several laps and her dyspnea had completely resolved. Her heart rate was much better improved and her lung exam had significantly improved. She will continue on these medications that were restarted here in the hospital. She will follow-up with cardiology and her PCP. Patient does have a history of prediabetes. Hemoglobin A1c is actually improved from previous readings of 5.8%. Given some instructions on diabetes diet and follow-up with her primary care provider. Notes For Next Care Provider She should follow-up with her outpatient nitrocellulose maker Will need to continue monitoring for her prediabetes Medication Changes From Visit Numerous medications were restarted and titrated upwards as listed Admission HPI Per Admitting Provider 79-year-old lady with PMH of HLD, T2DM, hypothyroidism, HTN, moderate persistent asthma without complication, CAD, HFpEF, stress incontinence, CKD stage IIIa, meningioma, KOLE inhibitor intolerance presented to the ED with complaint of shortness of breath and cough. Patient reports having shortness of breath for a while but it has been acutely worsening since last few weeks. Patient also reports having cough with greenish sputum since about 1 week, denies sore throat. Patient denies fever. Patient reports belly pain associated with cough. Patient reports diarrhea on and off for few weeks. Patient denies any pain or burning while passing urine. Reports feeling tired and has heavy breathing. Patient reports she stopped all her medications in April and stopped following with 's Office. She states that she did it on her own without instructions from her doctor's office. Patient reports being on Eliquis and heart medications including metoprolol/Lasix/Aldactone in the past. Patient is not very clear of what other medications she was taking in the past. DNR/DNI per my d/w the patient. Plan of care discussed with the patient in detail. She voiced understanding. Admission Exam Per Admitting Provider See H&P Discharge Exam Constitutional: Alert HEENT: Mucous membranes moist. Lungs: Decreased breath sounds, slightly prolonged expiratory phase, improved airflow from previous, rare wheeze CV: S1-S2, irregular Abdomen: Soft, nontender, nondistended Extremities: No significant edema Neuro: No focal deficits Psych: Cooperative, normal mood Updated Medication List Medication Instructions Recorded Confirmed Type acetaminophen 500 mg tablet 1,000 mg PO BID Pain 11/28/20 08/28/24 History apixaban 5 mg tablet (Eliquis) 5 mg PO BID #60 tabs 09/02/24 Rx aspirin 81 mg tablet,delayed 81 mg PO QAM #365 tabs 09/02/24 Rx release atorvastatin 40 mg tablet 80 mg (2 x 40 mg) PO QAM #30 tabs 09/02/24 Rx benzonatate 100 mg capsule 100 mg PO TID #20 caps 09/02/24 Rx digoxin 125 mcg (0.125 mg) tablet 0.125 mg PO MoWeFr@1600 #30 tabs 09/02/24 Rx (Digitek) guaifenesin 600 mg tablet, 600 mg PO Q12 #20 tabs 09/02/24 Rx extended release 12 hr (Mucinex) metoprolol succinate 50 mg 100 mg (2 x 50 mg) PO BID #60 tabs 09/02/24 Rx tablet,extended release 24 hr prednisone 20 mg tablet 40 mg (2 x 20 mg) PO DAILY 3 days 09/02/24 Rx #6 tabs sacubitril 24 mg-valsartan 26 mg 1 tab PO BID #60 tabs 09/02/24 Rx tablet (Entresto) spironolactone 25 mg tablet 12.5 mg (1/2 x 25 mg) PO DAILY #30 09/02/24 Rx tabs Hospital Stay Data Consultations 08/28/24 16:48 ED Decision to Admit Stat 08/28/24 17:23 Consult Cardiology Routine Diagnostic Imagining Performed Reviewed imaging, laboratory and diagnostic studies. Pertinent findings as below. 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
== END 2024-09-02 13:50 | disposition home or self-care (01) | DRG 308 ==
LOC: ED 14:35 → SUATTDRO 17:23 → 2S 17:23

== ENCOUNTER 2024-11-16 12:49 | Inpatient (IN) ==
--- NOTE | 2024-11-16 13:51 | Emergency Department Note ---
Impression & Plan Pneumonia, Atrial fibrillation with rapid ventricular response, CHF exacerbation ED Provider Note CAITLIN: LISA THOMAS AGE: 79 SEX: F : 1945 ARRIVES VIA: Ambulance INFORMANT: Patient, ED PROVIDER(S): Eulalio Arce MD CHIEF COMPLAINT: A-fib, burning urination, fatigue HPI: This is a 79-year-old female presenting is A-fib, burning urination and fatigue. Patient notes that for the past few days she has had on and off fevers, body aches, chills. She notes her heart rate is palpating. She is on a blood thinner. She notes she was previous diagnosed with pneumonia on October 21 manage influenza about 1 to 2 weeks later. No other sick contacts. She reports mild nausea without vomiting. Slight diarrhea. Does report dysuria. She is incontinent at baseline. PAST MEDICAL HISTORY: See Below PAST SURGICAL HISTORY: See Below FAMILY HISTORY: See Below SOCIAL HISTORY: See Below HOME MEDICATIONS: See Below ALLERGIES: See Below VITALS: See Below PHYSICAL EXAMINATION: General: resting comfortably in no acute distress Head: Normocephalic and atraumatic Eyes: Normal inspection, extraocular muscles intact Ear, nose, throat: Normal external exam Neck: Normal range of motion Respiratory: lungs clear to auscultation bilaterally Cardiovascular: Regular rate/rhythm, no murmur GI: soft, nontender, no guarding or rebound Extremities: nontender, moves all extremities Neuro: The patient awake and alert, appropriately conversive, no focal deficits, symmetric faces Skin: Warm, dry, and intact MEDICAL DECISION MAKING: This is 79-year-old female presenting for dysuria, fatigue. Will do blood cultures, lactic acid, VBG and chest x-ray. Patient had previous influenza A as well as pneumonia. Consider UTI at this time. -tech brazer tester was performing urinary catheter for urine sample. She does report the patient has excoriations on the labia. -Blood work is reviewed showing leukocytosis to 14 today. Otherwise INR 1.1. pH is 7.43/37. Lactic acid level 2.4 initially, 2 on repeat. -Electrolytes normal limits. -Urinalysis inconsistent with UTI -Chest x-ray shows stable CHF as well as pulm interstitial opacities concerning for pulmonary edema versus interstitial pneumonia -As patient feels ill, will continue with antibiotic with ceftriaxone and azithromycin -Patient given IV metoprolol, 5 mg for A-fib RVR now rates in the 130s -Patient downtrended to about 115, will try second dose of IV metoprolol, 5 mg. -Despite 2 doses of IV metoprolol, patient still in A-fib RVR with rates between 115 and 135 -Will get patient to the hospitalist service at this time. - I was asked back to bedside by Dr. Mahan as patient now hypotensive with A- fib RVR between 140 and 155. Patient is pale, ashen and hypotensive. She was 90s over 60s. Now there is no blood pressure reportable on both manual and automatic blood pressure cuff. -Bedside echocardiogram does show reduced EF without signs of pericardial effusion or right heart strain. These are otherwise limited due to patient positioning, habitus and agitation -Patient placed on high flow cannula and phenylephrine by Dr. Mahan. -Dr. Mahan requests sedation while patient was cardioverted. Dr. Mahan did discuss the patient risk of stroke as patient been off anticoagulation. -Due to the patient being extremis, currently pale, hypotensive and A-fib RVR, to believe she requires emergent sedation for cardioversion. Patient currently RVR with rates about 155 with significant hypotension, pale extremities and no discernible blood pressure -Patient initially dose of 5 mg IV etomidate without success. Patient is awake, talking. Given second 5 mg etomidate with success the patient now sedated. Breathing on her own. -Cardioversion successful, rates now 100 with sinus rhythm. Patient has improved color. Blood pressure on phenylephrine is in the 160s. Patient waking up from etomidate. She required total of 10 mg -After cardioversion, patient had snoring respirations. Patient bagged until able to breathe on her own. -Patient currently waking up from sedation, ICU PA at bedside for procedure/ICU management Differential diagnosis: Sepsis, pneumonia, UTI, A-fib, CHF Diagnostics interpreted by me: ECG: ECG independently interpreted by me with RVR at a rate of 137, normal QRS], normal QTc, no ST segment elevations consistent with STEMI criteria Cardiac Monitoring: An order was placed for continuous cardiac monitoring. The monitor shows a rate of 25 with atrial fibrillation rhythm. Critical Care Note: I have personally spent 45 minutes of critical care time in the direct management of this patient. This includes bedside care, interpretation of diagnostic studies, and testing, discussion with consultants, patient, and family members, and other required patient management activities. This 45 minutes is in excess of all separately billable procedures. 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; [facility] 09/24/23 to evaluate; '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 Aortic regurgitation mild per 08/2023 ECHO Chronic heart failure with preserved ejection fraction (HFpEF) (Chronic) 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 now with persistent afib; Continues on Eliquis ; follows with Chronic diastolic heart failure (Chronic) Aug 2019, patient was readmitted to [facility] with complaints of worsening SOB, edema, weight gain, and Afib RVR. She was evaluated by Dr. Toussaint. She was treated with IV diuretics with good response. Trace pedal edema on exam at [facility] 12/14/20. Depression (Chronic) Prediabetes (Chronic) Asthma (Chronic) rescue inhaler weekly PRN> short of breath most of time per pt Scoliosis (Chronic) Arthritis (Chronic) Medical History History of mood disorder Acute dyspnea Encounter for pre-operative examination COVID-19 ruled out Meningioma CKD (chronic kidney disease) stage 3, GFR 30-59 ml/min Methylenetetrahydrofolate reductase (MTHFR) deficiency History of recent hospitalization [facility] 08/20-08/22/23 for ongoing SOB and afib with RVR (post COVID). HR improved with digoxin and BB. Repeat ECHO showed (again) twicuspid valve mass; scheduled for [facility] 09/24/23 COVID-19 tested positive 08/09/23 (had acute visit with PCP); tx with paxlovid; sx resolved as of 09/19/23 Mitral valve regurgitation Mild per 08/2023 echo Verbalizes suicidal thoughts Depression with suicidal ideation Pt reports she feels safe with herself and has good support system. Hypothyroidism Urinary tract infection March 2020 > resolved History of cardioversion approx 2 yrs ago; follows with for persitent Afib Hx of breast cancer left; s/p lumpectomy Anxiety Kidney stones passed on own History of DVT (deep vein thrombosis) ~1999> left leg > unknown etiology Surgical History History of tooth extraction Hx of eye surgery scar tissue removed bilat History of cataract surgery bilateral History of bilateral tubal ligation History of section x2 History of right knee joint replacement History of left knee replacement S/P bunionectomy bilateral History of colonoscopy S/P left inguinal hernia repair x2 Status post lumbar surgery fusion @ [facility] S/P QUINCY-BSO Hx of lumpectomy Left lumpectomy with lymph node removal Status post coronary artery stent placement JAILENE to RCA 2018, JAILENE to LAD 2020 Family History Other Heart disease No family history of adverse response to anesthesia Social History Smoking Status: Never smoker Second Hand Exposure: Yes (parents and ); Do You Dip or Chew Tobacco: No; Hx Alcohol Use: No Hx Substance Use: No Preferred Language: Czech Communication Ability: Effective Police Magistrate Required: No Beliefs That Will Affect Care: None marital status: / Current Living Situation: Family Current Living Situation Comment: son and daughter in law Feels Safe at Home: Yes Safety Concerns: Feels Safe At This Time Assistive Devices: Cane and Walker Allergies Allergies Allergy/AdvReac Type Severity Reaction Status Date / Time adhesive Allergy Unknown HEAVIER Verified 11/05/24 10:22 SURG TAPE-REDNESS SORE SKIN cat dander Allergy Unknown ITCHY Verified 11/05/24 10:22 NOSE, ITCHY EYES,RUNNY NOSE grass pollen-perennial rye, Allergy Unknown GRASS,MOLD-ITCHY Verified 11/05/24 10:22 standar EYES RUNNY NOSE latex Allergy Unknown CONTACT Verified 11/05/24 10:22 DERMATITIS nickel Allergy Unknown Rash Verified 11/05/24 10:22 tetanus toxoid, adsorbed Allergy Unknown SWELLING Verified 11/05/24 10:22 AT SITE KOLE Inhibitors AdvReac Unknown COUGH Verified 11/05/24 10:22 Home Meds Home Medications Medication Instructions Recorded Confirmed acetaminophen 500 mg tablet 1,000 mg PO BID Pain 11/28/20 11/05/24 Previous Rx's Medication Instructions Recorded apixaban 5 mg tablet (Eliquis) 5 mg PO BID #60 tabs 09/02/24 aspirin 81 mg tablet,delayed 81 mg PO QAM #365 tabs 09/02/24 release atorvastatin 40 mg tablet 80 mg (2 x 40 mg) PO QAM #30 tabs 09/02/24 benzonatate 100 mg capsule 100 mg PO TID #20 caps 09/02/24 digoxin 125 mcg (0.125 mg) tablet 0.125 mg PO MoWeFr@1600 #30 tabs 09/02/24 (Digitek) guaifenesin 600 mg tablet, 600 mg PO Q12 #20 tabs 09/02/24 extended release 12 hr (Mucinex) metoprolol succinate 50 mg 100 mg (2 x 50 mg) PO BID #60 tabs 09/02/24 tablet,extended release 24 hr sacubitril 24 mg-valsartan 26 mg 1 tab PO BID #60 tabs 09/02/24 tablet (Entresto) spironolactone 25 mg tablet 12.5 mg (1/2 x 25 mg) PO DAILY #30 09/02/24 tabs benzonatate 100 mg capsule 100 mg PO TID PRN cough #20 caps 11/03/24 Results & Data (ED) Vital Signs Vital Signs - 24 hr 11/16/24 13:01 11/16/24 13:05 11/16/24 13:12 Temperature 36.1 C L Temperature Source Axillary Pulse Rate 130 H 134 H Pulse Rate [Apical] 130 H Pulse Rate from SpO2 Sensor Respiratory Rate 34 H 23 Respiratory Effort / Characteristics Non-Labored Spontaneous Non-Labored Spontaneous Grunting Respiratory Depth Normal Normal Respiratory Pattern Regular Tachypnea Blood Pressure 132/92 Blood Pressure [Right Arm] 132/92 Blood Pressure Mean 105 Blood Pressure Mean [Right Arm] 105 Blood Pressure Position [Right Arm] Semi-fowlers Pulse Oximetry 100 100 Oxygen Delivery Method Room Air Room Air Oxygen Flow Rate Sepsis New/Unexplained Change in Mental Status N/A Sepsis Action Taken by Nursing Physician Notified 11/16/24 13:12 11/16/24 13:27 11/16/24 13:31 Temperature Temperature Source Pulse Rate 139 H 136 H Pulse Rate [Apical] Pulse Rate from SpO2 Sensor 144 H 140 H Respiratory Rate 31 H 21 Respiratory Effort / Characteristics Respiratory Depth Respiratory Pattern Blood Pressure 128/91 Blood Pressure [Right Arm] Blood Pressure Mean 115 Blood Pressure Mean [Right Arm] Blood Pressure Position [Right Arm] Pulse Oximetry 93 100 Oxygen Delivery Method Oxygen Flow Rate Sepsis New/Unexplained Change in Mental Status Sepsis Action Taken by Nursing 11/16/24 13:31 11/16/24 13:42 11/16/24 13:48 Temperature Temperature Source Pulse Rate 141 H 133 H Pulse Rate [Apical] Pulse Rate from SpO2 Sensor 140 H 136 H Respiratory Rate 24 34 H Respiratory Effort / Characteristics Respiratory Depth Respiratory Pattern Blood Pressure 128/91 Blood Pressure [Right Arm] Blood Pressure Mean 115 Blood Pressure Mean [Right Arm] Blood Pressure Position [Right Arm] Pulse Oximetry 96 95 Oxygen Delivery Method Oxygen Flow Rate Sepsis New/Unexplained Change in Mental Status Sepsis Action Taken by Nursing 11/16/24 13:54 11/16/24 14:01 11/16/24 14:09 Temperature Temperature Source Pulse Rate 139 H 143 H Pulse Rate [Apical] Pulse Rate from SpO2 Sensor 145 H 148 H Respiratory Rate 32 H 31 H Respiratory Effort / Characteristics Respiratory Depth Respiratory Pattern Blood Pressure 123/78 Blood Pressure [Right Arm] Blood Pressure Mean 85 Blood Pressure Mean [Right Arm] Blood Pressure Position [Right Arm] Pulse Oximetry 99 97 Oxygen Delivery Method Oxygen Flow Rate Sepsis New/Unexplained Change in Mental Status Sepsis Action Taken by Nursing 11/16/24 14:18 11/16/24 14:36 11/16/24 14:45 Temperature Temperature Source Pulse Rate 136 H 127 H 130 H Pulse Rate [Apical] Pulse Rate from SpO2 Sensor 134 H 110 H 126 H Respiratory Rate 19 17 13 Respiratory Effort / Characteristics Respiratory Depth Respiratory Pattern Blood Pressure Blood Pressure [Right Arm] Blood Pressure Mean Blood Pressure Mean [Right Arm] Blood Pressure Position [Right Arm] Pulse Oximetry 95 98 94 Oxygen Delivery Method Oxygen Flow Rate Sepsis New/Unexplained Change in Mental Status Sepsis Action Taken by Nursing 11/16/24 14:57 11/16/24 15:00 11/16/24 15:01 Temperature 36.7 C Temperature Source Oral Pulse Rate 137 H Pulse Rate [Apical] 120 H Pulse Rate from SpO2 Sensor 132 H Respiratory Rate 16 13 Respiratory Effort / Characteristics Non-Labored Spontaneous Respiratory Depth Normal Respiratory Pattern Regular Blood Pressure 99/78 L Blood Pressure [Right Arm] 99/78 L Blood Pressure Mean 87 Blood Pressure Mean [Right Arm] 85 Blood Pressure Position [Right Arm] Semi-fowlers Pulse Oximetry 100 93 Oxygen Delivery Method Room Air Oxygen Flow Rate Sepsis New/Unexplained Change in Mental Status Sepsis Action Taken by Nursing 11/16/24 15:01 11/16/24 15:06 11/16/24 15:09 Temperature Temperature Source Pulse Rate 127 H 140 H Pulse Rate [Apical] Pulse Rate from SpO2 Sensor 121 H 129 H Respiratory Rate 16 19 Respiratory Effort / Characteristics Respiratory Depth Respiratory Pattern Blood Pressure 99/78 L Blood Pressure [Right Arm] Blood Pressure Mean 87 Blood Pressure Mean [Right Arm] Blood Pressure Position [Right Arm] Pulse Oximetry 98 95 Oxygen Delivery Method Oxygen Flow Rate Sepsis New/Unexplained Change in Mental Status Sepsis Action Taken by Nursing 11/16/24 15:30 11/16/24 15:31 11/16/24 15:32 Temperature Temperature Source Pulse Rate 131 H Pulse Rate [Apical] 126 H Pulse Rate from SpO2 Sensor Respiratory Rate 25 H Respiratory Effort / Characteristics Respiratory Depth Respiratory Pattern Blood Pressure 106/81 106/81 Blood Pressure [Right Arm] 106/81 Blood Pressure Mean 94 Blood Pressure Mean [Right Arm] 89 Blood Pressure Position [Right Arm] Pulse Oximetry 93 Oxygen Delivery Method Oxygen Flow Rate Sepsis New/Unexplained Change in Mental Status Sepsis Action Taken by Nursing 11/16/24 15:36 11/16/24 15:46 11/16/24 15:46 Temperature Temperature Source Pulse Rate Pulse Rate [Apical] 119 H Pulse Rate from SpO2 Sensor Respiratory Rate 12 Respiratory Effort / Characteristics Spontaneous Grunting Respiratory Depth Respiratory Pattern Regular Blood Pressure 110/85 110/85 Blood Pressure [Right Arm] Blood Pressure Mean 98 98 Blood Pressure Mean [Right Arm] Blood Pressure Position [Right Arm] Pulse Oximetry 95 Oxygen Delivery Method Nasal Cannula Oxygen Flow Rate 2 Sepsis New/Unexplained Change in Mental Status Sepsis Action Taken by Nursing 11/16/24 15:46 11/16/24 15:54 11/16/24 16:02 Temperature Temperature Source Pulse Rate 120 H 119 H Pulse Rate [Apical] Pulse Rate from SpO2 Sensor 120 H Respiratory Rate 25 H Respiratory Effort / Characteristics Respiratory Depth Respiratory Pattern Blood Pressure 110/86 105/75 Blood Pressure [Right Arm] Blood Pressure Mean 87 Blood Pressure Mean [Right Arm] Blood Pressure Position [Right Arm] Pulse Oximetry 100 Oxygen Delivery Method Oxygen Flow Rate Sepsis New/Unexplained Change in Mental Status Sepsis Action Taken by Nursing 11/16/24 16:02 11/16/24 16:03 11/16/24 16:15 Temperature Temperature Source Pulse Rate 119 H Pulse Rate [Apical] Pulse Rate from SpO2 Sensor 124 H Respiratory Rate 34 H Respiratory Effort / Characteristics Respiratory Depth Respiratory Pattern Blood Pressure 105/75 112/81 Blood Pressure [Right Arm] Blood Pressure Mean 87 87 Blood Pressure Mean [Right Arm] Blood Pressure Position [Right Arm] Pulse Oximetry 97 Oxygen Delivery Method Oxygen Flow Rate Sepsis New/Unexplained Change in Mental Status Sepsis Action Taken by Nursing 11/16/24 16:30 11/16/24 16:33 11/16/24 16:38 Temperature Temperature Source Pulse Rate 114 H 108 H 124 H Pulse Rate [Apical] Pulse Rate from SpO2 Sensor 119 H 115 H Respiratory Rate 26 H 13 Respiratory Effort / Characteristics Respiratory Depth Respiratory Pattern Blood Pressure 136/76 136/76 Blood Pressure [Right Arm] Blood Pressure Mean 96 Blood Pressure Mean [Right Arm] Blood Pressure Position [Right Arm] Pulse Oximetry 96 99 Oxygen Delivery Method Oxygen Flow Rate Sepsis New/Unexplained Change in Mental Status Sepsis Action Taken by Nursing 11/16/24 16:47 11/16/24 16:49 11/16/24 16:56 Temperature Temperature Source Pulse Rate 121 H Pulse Rate [Apical] Pulse Rate from SpO2 Sensor Respiratory Rate Respiratory Effort / Characteristics Respiratory Depth Respiratory Pattern Blood Pressure 59/29 L 91/62 L Blood Pressure [Right Arm] Blood Pressure Mean 49 27 Blood Pressure Mean [Right Arm] Blood Pressure Position [Right Arm] Pulse Oximetry Oxygen Delivery Method Oxygen Flow Rate Sepsis New/Unexplained Change in Mental Status Sepsis Action Taken by Nursing 11/16/24 16:57 11/16/24 16:57 11/16/24 17:00 Temperature Temperature Source Pulse Rate 137 H 124 H 123 H Pulse Rate [Apical] Pulse Rate from SpO2 Sensor 124 H 128 H 120 H Respiratory Rate 19 41 H 19 Respiratory Effort / Characteristics Respiratory Depth Respiratory Pattern Blood Pressure 91/62 L Blood Pressure [Right Arm] Blood Pressure Mean 74 Blood Pressure Mean [Right Arm] Blood Pressure Position [Right Arm] Pulse Oximetry 92 92 99 Oxygen Delivery Method Oxygen Flow Rate Sepsis New/Unexplained Change in Mental Status Sepsis Action Taken by Nursing 11/16/24 17:01 11/16/24 17:04 11/16/24 17:06 Temperature Temperature Source Pulse Rate 105 H 125 H Pulse Rate [Apical] 105 H Pulse Rate from SpO2 Sensor 129 H Respiratory Rate 28 H 41 H Respiratory Effort / Characteristics Spontaneous Grunting Labored Short of Breath Respiratory Depth Respiratory Pattern Tachypnea Blood Pressure Blood Pressure [Right Arm] Blood Pressure Mean Blood Pressure Mean [Right Arm] Blood Pressure Position [Right Arm] Pulse Oximetry 97 100 Oxygen Delivery Method Nasal Cannula Oxygen Flow Rate 2 Sepsis New/Unexplained Change in Mental Status Sepsis Action Taken by Nursing 11/16/24 17:08 11/16/24 17:08 11/16/24 17:08 Temperature Temperature Source Pulse Rate Pulse Rate [Apical] Pulse Rate from SpO2 Sensor Respiratory Rate Respiratory Effort / Characteristics Respiratory Depth Respiratory Pattern Blood Pressure 91/74 L 91/74 L Blood Pressure [Right Arm] 91/74 L Blood Pressure Mean 79 79 Blood Pressure Mean [Right Arm] 79 Blood Pressure Position [Right Arm] Semi-fowlers Pulse Oximetry Oxygen Delivery Method Oxygen Flow Rate Sepsis New/Unexplained Change in Mental Status Sepsis Action Taken by Nursing 11/16/24 17:24 11/16/24 17:30 11/16/24 17:35 Temperature Temperature Source Pulse Rate 137 H 136 H Pulse Rate [Apical] Pulse Rate from SpO2 Sensor Respiratory Rate 19 20 Respiratory Effort / Characteristics Respiratory Depth Respiratory Pattern Blood Pressure 87/64 L Blood Pressure [Right Arm] Blood Pressure Mean 76 Blood Pressure Mean [Right Arm] Blood Pressure Position [Right Arm] Pulse Oximetry Oxygen Delivery Method Oxygen Flow Rate Sepsis New/Unexplained Change in Mental Status Sepsis Action Taken by Nursing 11/16/24 17:35 11/16/24 17:39 Temperature Temperature Source Pulse Rate 124 H Pulse Rate [Apical] Pulse Rate from SpO2 Sensor 128 H Respiratory Rate 28 H Respiratory Effort / Characteristics Respiratory Depth Respiratory Pattern Blood Pressure 87/64 L Blood Pressure [Right Arm] Blood Pressure Mean 76 Blood Pressure Mean [Right Arm] Blood Pressure Position [Right Arm] Pulse Oximetry 85 L Oxygen Delivery Method Oxygen Flow Rate Sepsis New/Unexplained Change in Mental Status Sepsis Action Taken by Nursing Laboratory Data 11/17/24 04:13 11/17/24 04:13 Lab Results 11/16/24 11/16/24 11/16/24 Range/Units 13:45 14:06 15:03 WBC 14.01 H (4.8-10.8) K/ul RBC 5.58 H (4.20-5.40) M/uL Hgb 15.9 (12.0-16.0) g/dl Hct 48.7 H (37.0-47.0) % MCV 87.3 (80.0-100.0) fL MCH 28.5 (25.0-34.0) pg MCHC 32.6 (32.0-36.0) g/dL RDW Std Deviation 51.9 H (36.4-46.3) fL RDW Coeff of Stephan 17.8 H (11.5-14.5) % Plt Count 276 (130-400) K/uL MPV 11.7 (9.4-12.4) fL Immature Gran % (Auto) 0.6 % Neut % (Auto) 77.7 % Lymph % (Auto) 12.6 % Drew % (Auto) 8.4 % Eos % (Auto) 0.5 % Baso % (Auto) 0.2 % Neut # (Auto) 10.89 H (1.40-6.50) K/uL Lymph # (Auto) 1.77 (1.20-3.40) K/uL Drew # (Auto) 1.17 H (0.11-0.59) K/uL Eos # (Auto) 0.07 (0.00-0.50) K/uL Baso # (Auto) 0.03 (0.00-0.20) K/uL Immature Gran # (Auto) 0.08 (0.01-0.20) K/uL PT 12.2 H (9.0-12.0) Seconds INR 1.1 (0.9-1.1) APTT 25 (21-31) Seconds PTT Ratio 0.9 Heparin Anti-Xa, Unfract 0.19 L (0.3-0.7) IU/ml VBG pH 7.43 H (7.36-7.41) VBG pCO2 37 L (38-50) mmHg VBG pO2 30 mmHg VBG HCO3 25 mmol/L VBG O2 Saturation < 60.0 % VBG Base Excess 0.5 mEq/L Sodium 140 (136-145) mmol/L Potassium 4.2 (3.5-5.1) mmol/L Chloride 107 (98-107) mmol/L Carbon Dioxide 25 (21-32) mmol/L Anion Gap 8 (3-11) BUN 16 (6-23) mg/dl Creatinine 0.88 (0.6-1.2) mg/dl Est Cr Clr Drug Dosing 52.4 ml/min eGFR 67.22 BUN/Creatinine Ratio 18.2 (10-20) Glucose 109 H (70-99(Fasting)) mg/dl POC Glucose 108 H (70-99) mg/dl Lactate 2.4 H* (0.4-2.0) mmol/L Calcium 8.3 L (8.6-10.3) mg/dl Total Bilirubin 1.5 H (0.2-1.0) mg/dl AST 23 (13-39) U/L ALT 31 (7-52) U/L Alkaline Phosphatase 86 (34-104) U/L B-Natriuretic Peptide 499 H (0-100) pg/ml Total Protein 6.0 (6.0-8.3) gm/dl Albumin 3.2 L (3.4-5.0) gm/dl Globulin 2.8 (2.5-4.0) gm/dl Albumin/Globulin Ratio 1.1 (0.9-2) Procalcitonin 0.10 (0-0.5) ng/ml Random Cortisol 20.14 mcg/dl Urine Color Dark Yellow Urine Appearance Turbid A (Clear) Urine pH 5.5 (4.5-7.5) Ur Specific Marceline 1.023 (1.000-1.030) Urine Protein Trace H (Negative) Urine Glucose (UA) Negative (Negative) Urine Ketones Trace H (Negative) Urine Blood Trace H (Negative) Urine Nitrite Negative (Negative) Urine Bilirubin 1+ H (Negative) Urine Urobilinogen Positive H (Negative) Ur Leukocyte Esterase Trace H (Negative) Urine WBC (Auto) 0-5 (0-5) /hpf Urine RBC (Auto) 6-10 H (0-2) /hpf U Hyaline Cast (Auto) 11-20 H (0-2) /lpf U Epithel Cells (Auto) 6-10 H (0-2) /hpf Urine Bacteria (Auto) 1+ H (None Seen) Uric Acid Crystals Present A (None Prsent) Triple Phos Crystals Present A (None Prsent) Hyaline Casts Present A (None Presnt) /lpf Urine Mucus Present A (None Prsent) Adenovirus (PCR) (NotDetected) B. pertussis DNA (PCR) (NotDetected) B.parapertussis DNA PCR (NotDetected) C. pneumoniae DNA (PCR) (NotDetected) Coronavirus OC43 (PCR) (NotDetected) Coronavirus HKU1 (PCR) (NotDetected) Coronavirus 229E (PCR) (NotDetected) SARS-CoV-2 (PCR) (NotDetected) Coronavirus NL63 (PCR) (NotDetected) Human Metapneumovir PCR (NotDetected) Influenza A Untype (PCR) (NotDetected) Influenza Type B (PCR) (NotDetected) M. pneumoniae (PCR) (NotDetected) Parainfluenza 1 (PCR) (NotDetected) Parainfluenza 2 (PCR) (NotDetected) Parainfluenza 3 (PCR) (NotDetected) Parainfluenza 4 (PCR) (NotDetected) RSV (PCR) (NotDetected) Entero/Rhino (PCR) (NotDetected) Staphylococcus sp PCR DETECTED A (NotDetected) mecA/C-Methicil Resis Gene DETECTED A (NotDetected) Staph epidermidis (PCR) DETECTED A (NotDetected) Bld Cult ID Panel PCR See PCR Comment (NotDetected) 11/16/24 11/16/24 Range/Units 16:14 17:38 WBC (4.8-10.8) K/ul RBC (4.20-5.40) M/uL Hgb (12.0-16.0) g/dl Hct (37.0-47.0) % MCV (80.0-100.0) fL MCH (25.0-34.0) pg MCHC (32.0-36.0) g/dL RDW Std Deviation (36.4-46.3) fL RDW Coeff of Stephan (11.5-14.5) % Plt Count (130-400) K/uL MPV (9.4-12.4) fL Immature Gran % (Auto) % Neut % (Auto) % Lymph % (Auto) % Drew % (Auto) % Eos % (Auto) % Baso % (Auto) % Neut # (Auto) (1.40-6.50) K/uL Lymph # (Auto) (1.20-3.40) K/uL Drew # (Auto) (0.11-0.59) K/uL Eos # (Auto) (0.00-0.50) K/uL Baso # (Auto) (0.00-0.20) K/uL Immature Gran # (Auto) (0.01-0.20) K/uL PT (9.0-12.0) Seconds INR (0.9-1.1) APTT (21-31) Seconds PTT Ratio Heparin Anti-Xa, Unfract (0.3-0.7) IU/ml VBG pH (7.36-7.41) VBG pCO2 (38-50) mmHg VBG pO2 mmHg VBG HCO3 mmol/L VBG O2 Saturation % VBG Base Excess mEq/L Sodium (136-145) mmol/L Potassium (3.5-5.1) mmol/L Chloride (98-107) mmol/L Carbon Dioxide (21-32) mmol/L Anion Gap (3-11) BUN (6-23) mg/dl Creatinine (0.6-1.2) mg/dl Est Cr Clr Drug Dosing ml/min eGFR BUN/Creatinine Ratio (10-20) Glucose (70-99(Fasting)) mg/dl POC Glucose (70-99) mg/dl Lactate 2.0 (0.4-2.0) mmol/L Calcium (8.6-10.3) mg/dl Total Bilirubin (0.2-1.0) mg/dl AST (13-39) U/L ALT (7-52) U/L Alkaline Phosphatase (34-104) U/L B-Natriuretic Peptide (0-100) pg/ml Total Protein (6.0-8.3) gm/dl Albumin (3.4-5.0) gm/dl Globulin (2.5-4.0) gm/dl Albumin/Globulin Ratio (0.9-2) Procalcitonin (0-0.5) ng/ml Random Cortisol mcg/dl Urine Color Urine Appearance (Clear) Urine pH (4.5-7.5) Ur Specific Marceline (1.000-1.030) Urine Protein (Negative) Urine Glucose (UA) (Negative) Urine Ketones (Negative) Urine Blood (Negative) Urine Nitrite (Negative) Urine Bilirubin (Negative) Urine Urobilinogen (Negative) Ur Leukocyte Esterase (Negative) Urine WBC (Auto) (0-5) /hpf Urine RBC (Auto) (0-2) /hpf U Hyaline Cast (Auto) (0-2) /lpf U Epithel Cells (Auto) (0-2) /hpf Urine Bacteria (Auto) (None Seen) Uric Acid Crystals (None Prsent) Triple Phos Crystals (None Prsent) Hyaline Casts (None Presnt) /lpf Urine Mucus (None Prsent) Adenovirus (PCR) Not Detected (NotDetected) B. pertussis DNA (PCR) Not Detected (NotDetected) B.parapertussis DNA PCR Not Detected (NotDetected) C. pneumoniae DNA (PCR) Not Detected (NotDetected) Coronavirus OC43 (PCR) Not Detected (NotDetected) Coronavirus HKU1 (PCR) Not Detected (NotDetected) Coronavirus 229E (PCR) Not Detected (NotDetected) SARS-CoV-2 (PCR) Not Detected (NotDetected) Coronavirus NL63 (PCR) Not Detected (NotDetected) Human Metapneumovir PCR Not Detected (NotDetected) Influenza A Untype (PCR) DETECTED A (NotDetected) Influenza Type B (PCR) Not Detected (NotDetected) M. pneumoniae (PCR) Not Detected (NotDetected) Parainfluenza 1 (PCR) Not Detected (NotDetected) Parainfluenza 2 (PCR) Not Detected (NotDetected) Parainfluenza 3 (PCR) Not Detected (NotDetected) Parainfluenza 4 (PCR) Not Detected (NotDetected) RSV (PCR) Not Detected (NotDetected) Entero/Rhino (PCR) Not Detected (NotDetected) Staphylococcus sp PCR (NotDetected) mecA/C-Methicil Resis Gene (NotDetected) Staph epidermidis (PCR) (NotDetected) Bld Cult ID Panel PCR (NotDetected) Administered Medications Doxycycline Hyclate (Doxycycline Hyclate 100 Mg Cap) 100 mg PO BID [facility] Stop: 11/22/24 08:59 Last Admin: 11/17/24 09:09 Dose: 100 mg Documented By: ROSA Heparin Sodium/Dextrose (Heparin 44828 Unit/500 Ml) 25,000 units in 500 mls @ 23 mls/hr IV .[id number] [facility]; Protocol Stop: 12/16/24 20:10 Last Titration: 11/17/24 07:05 Dose: 1,150 units/hr, 23 mls/hr Documented By: BARBARA Co-signed By: ROSA Admin: 11/16/24 22:06 Dose: 1,150 units/hr, 23 mls/hr Documented By: BARBARA Co-signed By: XIANG Insulin Aspart (Insulin Aspart Per Unit Charge) 0 units SC ACHS [facility] Stop: 12/17/24 07:29 Last Admin: 11/17/24 11:34 Dose: Not Given Documented By: Admin: 11/17/24 08:01 Dose: 2 units Documented By: ROSA Co-signed By: DAI Metoprolol Tartrate (Metoprolol Tartrate 25 Mg Tab) 12.5 mg PO BID [facility] Stop: 12/17/24 11:29 Last Admin: 11/17/24 11:49 Dose: 12.5 mg Documented By: ROSA Discontinued Medications Acetylcysteine (Acetylcysteine 200 Mg/Ml 30ml Vial) 11,500 mg IV NOW [facility] Stop: 11/17/24 08:18 Last Admin: 11/17/24 09:09 Dose: 11,500 mg Documented By: ROSA Amiodarone HCl/Dextrose (Amiodarone 150mg / 100ml D5w) Confirm Administered Dose 150 mg IV .STK-MED ONE Stop: 11/16/24 19:12 Last Admin: 11/16/24 19:31 Dose: Not Given Documented By: DAWSON Etomidate (Etomidate 2 Mg/Ml 20 Ml Vial) Confirm Administered Dose 40 mg IV .STK-MED ONE Stop: 11/16/24 18:49 Last Admin: 11/16/24 19:42 Dose: Not Given Documented By: DAWSON Etomidate (Etomidate 2 Mg/Ml 20 Ml Vial) 5 mg IV NOW ONE Stop: 11/16/24 19:36 Last Admin: 11/16/24 18:54 Dose: 5 mg Documented By: DAWSON Etomidate (Etomidate 2 Mg/Ml 20 Ml Vial) 5 mg IV NOW ONE Stop: 11/16/24 19:36 Last Admin: 11/16/24 18:59 Dose: 5 mg Documented By: DAWSON Heparin Sodium/Dextrose (Heparin Iv Adult Wt-Based Standard *No* Initial Bolus Protocol) 1 each IV ONE STA; Protocol Stop: 11/16/24 20:12 Last Admin: 11/16/24 22:09 Dose: Not Given Documented By: BARBARA Hydrocortisone Sodium Succinate (Hydrocortisone Sod Succinate 100 Mg/2 Ml Vial) 100 mg IV NOW STA Stop: 11/16/24 19:00 Last Admin: 11/16/24 19:33 Dose: 100 mg Documented By: DAWSON Ceftriaxone Sodium (Rocephin) 2,000 mg in 50 mls @ 100 mls/hr IV NOW STA Stop: 11/16/24 15:51 Last Infusion: 11/16/24 16:32 Dose: Infused Documented By: Admin: 11/16/24 15:29 Dose: 100 mls/hr Documented By: DAWSON Azithromycin 500 mg/ Sodium (Chloride) 255 mls @ 127.5 mls/hr IV NOW ONE Stop: 11/16/24 17:29 Last Infusion: 11/16/24 18:14 Dose: Infused Documented By: Admin: 11/16/24 16:13 Dose: 127.5 mls/hr Documented By: DAWSON Digoxin 125 mcg/ Syringe 10 mls @ 2 mls/min IV NOW STA Stop: 11/16/24 17:40 Last Admin: 11/16/24 19:27 Dose: Not Given Documented By: DAWSON Digoxin 250 mcg/ Syringe 10 mls @ 2 mls/min IV NOW STA Stop: 11/16/24 17:46 Last Admin: 11/16/24 19:26 Dose: Not Given Documented By: DAWSON Phenylephrine HCl (Phenylephrine/Nss) 25 mg in 250 mls @ 25.74 mls/hr IV .Q9H43M DAO; Protocol Stop: 12/16/24 17:59 Last Titration: 11/17/24 05:52 Dose: Infused Documented By: CP Co-signed By: TP Admin: 11/17/24 01:08 Dose: 0.6 mcg/kg/min, 30.9 mls/hr Documented By: CP Co-signed By: TP Titration: 11/17/24 01:08 Dose: Infused Documented By: CP Co-signed By: TP Titration: 11/16/24 22:11 Dose: 0.6 mcg/kg/min, 30.9 mls/hr Documented By: CP Co-signed By: TP Titration: 11/16/24 20:00 Dose: 0.4 mcg/kg/min, 20.6 mls/hr Documented By: JENNIFER Co-signed By: SHARDA Titration: 11/16/24 19:23 Dose: 0.9 mcg/kg/min, 46.3 mls/hr Documented By: DAWSON Co-signed By: JENIFERW Titration: 11/16/24 19:09 Dose: 0.7 mcg/kg/min, 36 mls/hr Documented By: DAWSON Co-signed By: JENIFERW Titration: 11/16/24 19:08 Dose: 0.9 mcg/kg/min, 46.3 mls/hr Documented By: DAWSON Co-signed By: GIOVANNYJ Titration: 11/16/24 18:44 Dose: 1.1 mcg/kg/min, 56.6 mls/hr Documented By: DAWSON Co-signed By: KMO Titration: 11/16/24 18:28 Dose: 0.9 mcg/kg/min, 46.3 mls/hr Documented By: [email or web address] Co-signed By: BK Titration: 11/16/24 18:19 Dose: 0.7 mcg/kg/min, 36 mls/hr Documented By: DAWSON Co-signed By: BK Admin: 11/16/24 18:10 Dose: 0.5 mcg/kg/min, 25.7 mls/hr Documented By: DAWSON Co-signed By: DANICA Amiodarone HCl/Dextrose (Nexterone / D5w) 150 mg in 100 mls @ 600 mls/hr IV NOW STA Stop: 11/16/24 19:18 Last Infusion: 11/16/24 19:41 Dose: Infused Documented By: DAWSON Co-signed By: DEMETRIO Admin: 11/16/24 19:28 Dose: 600 mls/hr Documented By: DAWSON Co-signed By: DEMETRIO Acetaminophen (Ofirmev) 1,000 mg in 100 mls @ 400 mls/hr IV NOW STA Stop: 11/16/24 20:57 Last Infusion: 11/16/24 22:09 Dose: Infused Documented By: Admin: 11/16/24 21:15 Dose: 400 mls/hr Documented By: BARBARA Amiodarone HCl/Dextrose (Nexterone / D5w) 360 mg in 200 mls @ 16.667 mls/hr IV .Q12H DAO Stop: 12/17/24 04:59 Last Infusion: 11/17/24 05:53 Dose: Infused Documented By: CP Co-signed By: TP Admin: 11/17/24 04:25 Dose: 0.5 mg/min, 16.7 mls/hr Documented By: BARBARA Co-signed By: JOSE JUAN Amiodarone HCl/Dextrose (Nexterone / D5w) 360 mg in 200 mls @ 33.333 mls/hr IV .Q6H DAO Stop: 11/17/24 04:59 Last Infusion: 11/17/24 04:25 Dose: Infused Documented By: CP Co-signed By: TP Admin: 11/16/24 22:58 Dose: 1 mg/min, 33.3 mls/hr Documented By: BARBARA Co-signed By: JOSE JUAN Digoxin 125 mcg/ Syringe 10 mls @ 2 mls/min IV NOW STA Stop: 11/17/24 00:04 Last Admin: 11/17/24 00:17 Dose: 2 mls/min Documented By: BARBARA Norepinephrine Bitartrate (Levophed/D5w) 4 mg in 250 mls @ 0 mls/hr IV .Q0M DAO; Protocol Stop: 12/17/24 00:29 Last Titration: 11/17/24 10:12 Dose: Infused Documented By: ROSA Co-signed By: JINNY Titration: 11/17/24 08:30 Dose: 0 mcg/kg/min, 0 mls/hr Documented By: ROSA Co-signed By: DAI Titration: 11/17/24 07:06 Dose: 0.05 mcg/kg/min, 15.5 mls/hr Documented By: BARBARA Co-signed By: ROSA Admin: 11/17/24 05:48 Dose: 0.05 mcg/kg/min, 15.5 mls/hr Documented By: BARBARA Co-signed By: TP Admin: 11/17/24 01:06 Dose: Not Given Documented By: BARBARA Sodium Chloride (Nss) 500 mls @ 500 mls/hr IV .Q1H DAO Stop: 11/17/24 06:59 Last Infusion: 11/17/24 06:06 Dose: Infused Documented By: Admin: 11/17/24 06:05 Dose: 500 mls/hr Documented By: BARBARA Cefepime HCl (Maxipime 2000mg) 2,000 mg in 20 mls @ 5 mls/min IV Q12H DAO; Protocol Stop: 11/19/24 06:59 Last Admin: 11/17/24 08:00 Dose: 5 mls/min Documented By: ROSA Digoxin 125 mcg/ Syringe 10 mls @ 2 mls/min IV NOW STA Stop: 11/17/24 11:34 Last Admin: 11/17/24 11:49 Dose: 2 mls/min Documented By: ROSA Metoprolol Tartrate (Metoprolol Tartrate 1 Mg/Ml Vial) 5 mg IV NOW STA Stop: 11/16/24 15:23 Last Admin: 11/16/24 15:32 Dose: 5 mg Documented By: DAWSON Metoprolol Tartrate (Metoprolol Tartrate 1 Mg/Ml Vial) 5 mg IV NOW STA Stop: 11/16/24 16:13 Last Admin: 11/16/24 16:38 Dose: 5 mg Documented By: DAWSON Miscellaneous (Icu Protocol For Hyperglycemia) 1 each N/A ACHS DAO Stop: 11/18/24 20:59 Last Admin: 11/17/24 07:35 Dose: Not Given Documented By: Admin: 11/16/24 22:09 Dose: Not Given Documented By: BARBARA Ondansetron HCl (Ondansetron Inj 2 Mg/Ml 2 Ml Vial) 4 mg IV NOW STA Stop: 11/16/24 18:23 Last Admin: 11/16/24 18:33 Dose: 4 mg Documented By: DAWSON Imaging Data Radiologist's Impression: Chest X-Ray 11/16/24 13:13 XR chest 1V portable CLINICAL HISTORY: AFib, PNA, SOB COMPARISON STUDY: 11/03/2024 FINDINGS: There is stable cardiomegaly with pulmonary vascular congestion. Stable diffuse pulmonary interstitial prominence. No lobar consolidation or pleural effusion. No pneumothorax. IMPRESSION: 1. Stable CHF. 2. Pulmonary interstitial opacities could represent mild pulmonary edema or interstitial pneumonia. ACT 112: Negative or not required by law. Electronically signed by: Tucker Guerrero M.D. 11/16/2024 2:30 PM Discharge Plan Visit Data Chief Complaint: Urinary Symptoms Stated Complaint: ILLNESS, POSSIBLE UTI ED Provider: Eulalio Arce Discharge Problem: Pneumonia, Atrial fibrillation with rapid ventricular response, CHF exacerbation Patient Disposition: Admitted As Inpatient Discharge Instructions Interventions: ED Discharge Assessment Last Done: 11/16/24 19:53
[2024-11-16 14:17] LABS: Appearance Urine Turbid (Clear); Bilirubin Urine 1+ (Negative); Blood Urine Trace (Negative); Color Urine Dark Yellow; Glucose Urine UA Negative (Negative); Hyaline Casts Urine Present /lpf (None Presnt); Ketones Urine Trace (Negative); Leukocyte Esterase Urine Trace (Negative); Mucus Urine Present (None Prsent); Nitrite Urine Negative (Negative); Protein Urine Trace (Negative); Specific Gravity Urine 1.023 (1.000-1.030); Uric Acid Crystals Urine Present (None Prsent); Urobilinogen Urine Positive (Negative); WBC Urine Automated 0-5 /hpf (0-5); pH Urine 5.5 (4.5-7.5)
[2024-11-16 14:21] LABS: Base Excess VBG 0.5 mEq/L; HCO3 VBG 25 mmol/L; Oxygen Saturation VBG < 60.0 %; PCO2 VBG 37 mmHg (38-50); PO2 VBG 30 mmHg; pH VBG 7.43 (7.36-7.41)
[2024-11-16 14:31] LABS: Triple Phosphate Crystal Urine Present (None Prsent)
--- NOTE | 2024-11-16 14:31 | XRay Report ---
XR chest 1V portable CLINICAL HISTORY: AFib, PNA, SOB COMPARISON STUDY: 11/03/2024 FINDINGS: There is stable cardiomegaly with pulmonary vascular congestion. Stable diffuse pulmonary i nterstitial prominence. No lobar consolidation or pleural effusion. No pneumothorax. IMPRESSION: 1. Stable CHF. 2. Pulmonary interstitial opacities could represent mild pulmonary edema or interstitial pneumonia. ACT 112: Negative or not required by law. Electronically signed by: Tucker Guerrero M.D. 11/16/2024 2:30 PM
[2024-11-16 14:33] LABS: Bacteria Urine Automated 1+ (None Seen)
[2024-11-16 14:38] LABS: Basophils # (auto) 0.03 K/uL (0.00-0.20); Basophils % (auto) 0.2 %; Eosinophils # (auto) 0.07 K/uL (0.00-0.50); Eosinophils % (auto) 0.5 %; Hematocrit (blood only) 48.7 % (37.0-47.0); Hemoglobin 15.9 g/dl (12.0-16.0); Immature Granulocytes # (auto) 0.08 K/uL (0.01-0.20); Immature Granulocytes % (auto) 0.6 %; Lymphocytes # (auto) 1.77 K/uL (1.20-3.40); Lymphocytes % (auto) 12.6 %; Mean Corpuscular Hemoglobin 28.5 pg (25.0-34.0); Mean Corpuscular Hgb Conc 32.6 g/dL (32.0-36.0); Mean Corpuscular Volume 87.3 fL (80.0-100.0); Mean Platelet Volume 11.7 fL (9.4-12.4); Monocytes # (auto) 1.17 K/uL (0.11-0.59); Monocytes % (auto) 8.4 %; Neutrophils # (auto) 10.89 K/uL (1.40-6.50); Neutrophils % (auto) 77.7 %; Platelet Count 276 K/uL (130-400); RDW Coefficient of Variation 17.8 % (11.5-14.5); RDW Standard Deviation 51.9 fL (36.4-46.3); Red Blood Count 5.58 M/uL (4.20-5.40); White Blood Count 14.01 K/ul (4.8-10.8)
[2024-11-16 14:54] LABS: Albumin Globulin Ratio 1.1 (0.9-2); Albumin Level 3.2 gm/dl (3.4-5.0); BUN Creatinine Ratio 18.2 (10-20); Bilirubin,Total 1.5 mg/dl (0.2-1.0); Calcium 8.3 mg/dl (8.6-10.3); Creatinine Clr Calc Pharmacy 52.4 ml/min; Globulin 2.8 gm/dl (2.5-4.0); Potassium 4.2 mmol/L (3.5-5.1)
[2024-11-16] MEDS ORDERED: AZITHROMYCIN 500 MG VIAL IV STA (15:22)
[2024-11-16] MEDS: cefTRIAXone SODIUM 2,000 MG/50 ML BAG IV STA (15:29)
[2024-11-16] MEDS: METOPROLOL TARTRATE 1 MG/ML VIAL IV STA ×2 (15:32→16:38)
[2024-11-16] MEDS: AZITHROMYCIN 500 MG in SODIUM CHLORIDE 0.9% 250 ML IV ONE (16:13)
--- NOTE | 2024-11-16 17:17 | History & Physical Report ---
Date of Service November 16, 2024 Assessment & Plan (1) Cardiogenic shock: Plan: Persistent hypotension, started on phenylephrine, despite this BP became undetectable and lactate subsequently increased to 7.4, despite patient talking she was became more confused and increased tachypnea. A. fib RVR with rate 150s (non-compliance with medications), pulmonary edema on CXR, history of CHF with similar presentation in August therefore suspected to have cardiogenic shock ongoing despite phenylephrine therefore performed synchronized cardioversion. Stroke risk was discussed with the patient however given emergent nature consent was not signed. ER Provider Dr Arce performed sedation with etomidate and I performed successful synchronized cardioversion with 200J on the first attempt with maintenance of sinus rhythm and BP 163/139 following this. Amiodarone therefore started to help maintain her in NSR and phenylephrine weaned. Handed over to ICU HOT TAMALE WORKER present at bedside following this. POCUS US performed with ER provider - no significant pericardial effusion or right heart strain, LVEF appears reduced Discussed with Dr Raya (ICU attending) at multiple times during treatment in the ER and he also recommended cortisol level and hydrocortisone 100mg IV (see H &P) TTE Consult cardiology (2) Acute on chronic heart failure with preserved ejection fraction: Plan: Suspect rate related acute on chronic CHF due to not taking her medications Can trial on CPAP if nausea improves Consider diuresis if BP improves, previously cautiously diuresed by cardiology in August with similar BNP Treatment deferred to ICU team at this time Consult cardiology (3) Atrial fibrillation with rapid ventricular response: Plan: Initially planned on digoxin however lost blood pressure and then required synchronized cardioversion therefore switched to rhythm control strategy with amiodarone IV TTE Start IV heparin with bolus for stroke prophylaxis Consult cardiology (4) Pneumonia: Plan: Biofire PCR pending Possible diagnosis given history of chills. Similar presentation in August when she was diagnosed with pneumonia and Acute on chronic CHF after similar medical non compliance with her medications Cover with ceftriaxone and azithromycin WBC 14 however procalcitonin negative (5) Lactic acidosis: Plan: Secondary to hypoxia and hypotension Continue to monitor per ICU team (6) Sepsis: Plan: Possible diagnosis (see pneumonia as above) Follow up blood and urine cultures Not given IV fluid bolus due to acute congestive heart failure (7) Non compliance with medical treatment: (8) Coronary artery disease: Plan: s/p JAILENE to RCA 2018, JAILENE to LAD 2020 (9) Acute respiratory failure with hypoxia: Plan: Aim O2 sats > 94%, preferably with CPAP if patient can tolerate Defer ongoing treatment to ICU team Plan VTE Prophylaxis - IV heparin Diet - NPO Disposition - admit to ICU Admission and Anticipated Discharge Date Admission Date: November 16, 2024 History of Present Illness Chief Complaint: Shortness of breath Primary Care Provider: Shaun Mena DO Ana Eckert is a 79 year old female who presents to the ER with fever, chills, shortness of breath, productive cough, dysuria, increased urinary frequency. She reports her main issue is feeling short of breath which has been getting progressively worse. She currently feels like she is having a panic attack. She denies any current chest or abdominal pain. She is unsure when she last took her medications but is has at least been 2 to 3 days. Discussed with son with consent from the patient. She lives with her son. He reports she woke up this morning not really knowing where she was, she has been getting progressively more short of breath and weaker over the last 2 weeks since her influenza diagnosis on November 03. He has been trying to convince her to come to the hospital. She has been mostly bedbound for 4 to 6 weeks. He leaves his medications up to his mother therefore is unsure whether she is taking them or not. In the ER she was diagnosed with atrial fibrillation with rapid ventricular rate, acute congestive heart failure and pneumonia. She was given ceftriaxone and azithromycin to cover for pneumonia. She was given metoprolol 5 mg IV x 2 for atrial fibrillation with rapid ventricular rate. Her blood pressure was 87/64 when initially seen. She was conversational but had cyanotic extremities. I discussed care with Dr. Raya suspecting she would need vasopressors in order to help with diuresis and recommended, digoxin and cortisol level. At around 6pm her MAP < 65 and on discussion with Dr. Raya she was started on phenylephrine. I ordered CPAP however she had a vomiting episode therefore was put on high flow oxygen instead. When informed of this I ordered ondansetron and asked to try CPAP again. At this time her blood pressure became undetectable despite her still conversational we were unable to feel peripheral pulses at this time. She did not want resuscitation or intubation per my earlier conversation with her. Since her peripheries appeared better perfused than when I first saw and she was conversational and elected to take a lactate level which subsequently was elevated at 7.4. At this time I asked the ER provider to provide sedation for synchronized cardioversion as she appeared cyanotic, diaphoretic with decreasing mental status despite still talking and we were unable to feel peripheral pulses in addition to an undetectable blood pressure despite continuing to go up on the phenylephrine. I discussed the stroke risk with the patient however written consent was not obtained due to the emergent nature of the procedure. The correct patient was identified using wristband. Suction, airway equipment, m edications, respiratory equipment, ACLS cart, and appropriate personnel were prepared prior to the initiation of the procedure. Sedation was achieved utilizing etomidate 5 mg IV x 2 by ER provider. The biphasic defibrillator was set to 200 joules of energy and synched. After confirmation of sedation and "all clear" safety check the synchronized shock was delivered. This resulted in successful conversion of the dysrhythmia back into sinus rhythm. See nursing notes for dosages and times. The patient required [id number] following the procedure but then regained consciousness and spontaneously breathing with return of her blood pressure to 163/139. The patient was handed over to ICU HOT TAMALE WORKER who came to bedside following synchronized cardioversion. I updated her son on events above over the phone. Allergies Allergy/AdvReac Type Severity Reaction Status Date / Time adhesive Allergy Unknown HEAVIER Verified 11/05/24 10:22 SURG TAPE-REDNESS SORE SKIN cat dander Allergy Unknown ITCHY Verified 11/05/24 10:22 NOSE, ITCHY EYES,RUNNY NOSE grass pollen-perennial rye, Allergy Unknown GRASS,MOLD-ITCHY Verified 11/05/24 10:22 standar EYES RUNNY NOSE latex Allergy Unknown CONTACT Verified 11/05/24 10:22 DERMATITIS nickel Allergy Unknown Rash Verified 11/05/24 10:22 tetanus toxoid, adsorbed Allergy Unknown SWELLING Verified 11/05/24 10:22 AT SITE KOLE Inhibitors AdvReac Unknown COUGH Verified 11/05/24 10:22 Home Medications Medication Instructions Recorded Confirmed Type acetaminophen 500 mg tablet 1,000 mg PO BID Pain 11/28/20 11/05/24 History apixaban 5 mg tablet (Eliquis) 5 mg PO BID #60 tabs 09/02/24 11/05/24 Rx aspirin 81 mg tablet,delayed 81 mg PO QAM #365 tabs 09/02/24 11/05/24 Rx release atorvastatin 40 mg tablet 80 mg (2 x 40 mg) PO QAM #30 tabs 09/02/24 11/05/24 Rx benzonatate 100 mg capsule 100 mg PO TID #20 caps 09/02/24 11/05/24 Rx digoxin 125 mcg (0.125 mg) tablet 0.125 mg PO MoWeFr@1600 #30 tabs 09/02/24 11/05/24 Rx (Digitek) guaifenesin 600 mg tablet, 600 mg PO Q12 #20 tabs 09/02/24 11/05/24 Rx extended release 12 hr (Mucinex) metoprolol succinate 50 mg 100 mg (2 x 50 mg) PO BID #60 tabs 09/02/24 11/05/24 Rx tablet,extended release 24 hr sacubitril 24 mg-valsartan 26 mg 1 tab PO BID #60 tabs 09/02/24 11/05/24 Rx tablet (Entresto) spironolactone 25 mg tablet 12.5 mg (1/2 x 25 mg) PO DAILY #30 09/02/24 11/05/24 Rx tabs benzonatate 100 mg capsule 100 mg PO TID PRN cough #20 caps 11/03/24 11/05/24 Rx Past Med/Surg History Problem List (Updated 11/17/24 @ 01:43 by Dilip Mahan MD) Acute respiratory failure with hypoxia Non compliance with medical treatment Sepsis Cardiogenic shock Lactic acidosis Septic shock Cystitis Acute kidney injury Pneumonia Influenza (Acute) Acute bronchospasm due to viral infection Acute exacerbation of CHF (congestive heart failure) (Acute) Elevated brain natriuretic peptide (BNP) level (Acute) Atrial fibrillation with rapid ventricular response (Chronic) 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; [facility] 09/24/23 to evaluate; '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 Aortic regurgitation mild per 08/2023 ECHO Chronic heart failure with preserved ejection fraction (HFpEF) (Chronic) 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 now with persistent afib; Continues on Eliquis ; follows with Chronic diastolic heart failure (Chronic) Aug 2019, patient was readmitted to [facility] with complaints of worsening SOB, edema, weight gain, and Afib RVR. She was evaluated by Dr. Toussaint. She was treated with IV diuretics with good response. Trace pedal edema on exam at PAT 12/14/20. Depression (Chronic) Prediabetes (Chronic) Asthma (Chronic) rescue inhaler weekly PRN> short of breath most of time per pt Scoliosis (Chronic) Arthritis (Chronic) Medical History History of mood disorder Acute dyspnea Encounter for pre-operative examination COVID-19 ruled out Meningioma CKD (chronic kidney disease) stage 3, GFR 30-59 ml/min Methylenetetrahydrofolate reductase (MTHFR) deficiency History of recent hospitalization [facility] 08/20-08/22/23 for ongoing SOB and afib with RVR (post COVID). HR improved with digoxin and BB. Repeat ECHO showed (again) twicuspid valve mass; scheduled for [facility] 09/24/23 COVID-19 tested positive 08/09/23 (had acute visit with PCP); tx with paxlovid; sx resolved as of 09/19/23 Mitral valve regurgitation Mild per 08/2023 echo Verbalizes suicidal thoughts Depression with suicidal ideation Pt reports she feels safe with herself and has good support system. Hypothyroidism Urinary tract infection March 2020 > resolved History of cardioversion approx 2 yrs ago; follows with for persitent Afib Hx of breast cancer left; s/p lumpectomy Anxiety Kidney stones passed on own History of DVT (deep vein thrombosis) ~1999> left leg > unknown etiology Surgical History History of tooth extraction Hx of eye surgery History of cataract surgery History of bilateral tubal ligation History of section History of right knee joint replacement History of left knee replacement S/P bunionectomy History of colonoscopy S/P left inguinal hernia repair Status post lumbar surgery S/P QUINCY-BSO Hx of lumpectomy Status post coronary artery stent placement Family History Other Heart disease No family history of adverse response to anesthesia Social History Smoking Status: Never smoker Second Hand Exposure: Yes (parents and ); Do You Dip or Chew Tobacco: No; Hx Alcohol Use: No Hx Substance Use: No Preferred Language: Setswana Communication Ability: Effective Upsetter Helper Required: No Beliefs That Will Affect Care: None marital status: / Current Living Situation: Family Current Living Situation Comment: son and daughter in law Feels Safe at Home: Yes Safety Concerns: Feels Safe At This Time Assistive Devices: Cane and Walker Review of Systems Review of Systems: All systems reviewed & are unremarkable except as noted in HPI & below Physical Exam Constitutional: well developed and + acute distress (Respiratory); + not well nourished ENMT: external ear and nose normal, oropharynx normal Respiratory: + labored breathing, + uses accessory mu scles and + tachypneic Auscultation: + diminished lung sounds (Throughout); no crackles and no wheezes Cardiovascular: Rate/Rhythm: + tachycardic and + irregularly irregular Heart Sounds: no murmur Extremities: + pedal edema; + abnormal capillary refill (cyanotic blue peripheries) and no calf tenderness Gastrointestinal (Abdomen): normal bowel sounds, soft, nontender, no hepatosplenomegaly Musculoskeletal: no cyanosis or clubbing, extremities motor strength 5/5 Skin: + pallor Neurologic: moves all extremities, awake and + confused Psychiatric: Orientation: alert, oriented to person and oriented to place; + not oriented to time Genitourinary: no CVA tenderness Results & Data Results & Data Vital Signs (Past 12 Hours) Vital Signs Temp Pulse Pulse Resp BP BP Pulse Ox 11/16/24 17:08 91/74 L 11/16/24 17:04 105 H 11/16/24 17:01 105 H 28 H 97 11/16/24 16:56 121 H 91/62 L 11/16/24 16:38 124 H 136/76 11/16/24 16:30 114 H 26 H 136/76 96 11/16/24 16:15 112/81 11/16/24 16:03 119 H 34 H 97 11/16/24 16:02 105/75 11/16/24 16:02 105/75 11/16/24 15:54 119 H 25 H 100 11/16/24 15:46 120 H 110/86 11/16/24 15:46 110/85 11/16/24 15:46 110/85 11/16/24 15:36 119 H 12 95 11/16/24 15:32 131 H 106/81 11/16/24 15:31 126 H 25 H 106/81 93 11/16/24 15:30 106/81 11/16/24 15:09 140 H 19 95 11/16/24 15:06 127 H 16 98 11/16/24 15:01 99/78 L 11/16/24 15:01 99/78 L 11/16/24 15:00 36.7 C 120 H 13 99/78 L 93 11/16/24 14:57 137 H 16 100 11/16/24 14:45 130 H 13 94 11/16/24 14:36 127 H 17 98 11/16/24 14:18 136 H 19 95 11/16/24 14:09 143 H 31 H 97 11/16/24 14:01 123/78 11/16/24 13:54 139 H 32 H 99 11/16/24 13:48 133 H 34 H 95 11/16/24 13:42 141 H 24 96 11/16/24 13:31 128/91 11/16/24 13:31 128/91 11/16/24 13:27 136 H 21 100 11/16/24 13:12 139 H 31 H 93 11/16/24 13:12 134 H 11/16/24 13:05 130 H 23 132/92 100 11/16/24 13:01 36.1 C L 130 H 34 H 132/92 100 O2 Del Method O2 Flow Rate 11/16/24 17:08 11/16/24 17:04 11/16/24 17:01 Nasal Cannula 2 11/16/24 16:56 11/16/24 16:38 11/16/24 16:30 11/16/24 16:15 11/16/24 16:03 11/16/24 16:02 11/16/24 16:02 11/16/24 15:54 11/16/24 15:46 11/16/24 15:46 11/16/24 15:46 11/16/24 15:36 Nasal Cannula 2 11/16/24 15:32 11/16/24 15:31 11/16/24 15:30 11/16/24 15:09 11/16/24 15:06 11/16/24 15:01 11/16/24 15:01 11/16/24 15:00 Room Air 11/16/24 14:57 11/16/24 14:45 11/16/24 14:36 11/16/24 14:18 11/16/24 14:09 11/16/24 14:01 11/16/24 13:54 11/16/24 13:48 11/16/24 13:42 11/16/24 13:31 11/16/24 13:31 11/16/24 13:27 11/16/24 13:12 11/16/24 13:12 11/16/24 13:05 Room Air 11/16/24 13:01 Room Air Laboratory Results Abnormal lab results 11/16/24 11/16/24 Range/Units 13:45 14:06 WBC 14.01 H (4.8-10.8) K/ul RBC 5.58 H (4.20-5.40) M/uL Hct 48.7 H (37.0-47.0) % RDW Std Deviation 51.9 H (36.4-46.3) fL RDW Coeff of Stephan 17.8 H (11.5-14.5) % Neut # (Auto) 10.89 H (1.40-6.50) K/uL [place] # (Auto) 1.17 H (0.11-0.59) K/uL VBG pH 7.43 H (7.36-7.41) VBG pCO2 37 L (38-50) mmHg Glucose 109 H (70-99(Fasting)) mg/dl POC Glucose 108 H (70-99) mg/dl Lactate 2.4 H* (0.4-2.0) mmol/L Calcium 8.3 L (8.6-10.3) mg/dl Total Bilirubin 1.5 H (0.2-1.0) mg/dl B-Natriuretic Peptide 499 H (0-100) pg/ml Albumin 3.2 L (3.4-5.0) gm/dl Urine Appearance Turbid A (Clear) Urine Protein Trace H (Negative) Urine Ketones Trace H (Negative) Urine Blood Trace H (Negative) Urine Bilirubin 1+ H (Negative) Urine Urobilinogen Positive H (Negative) Ur Leukocyte Esterase Trace H (Negative) Urine RBC (Auto) 6-10 H (0-2) /hpf U Hyaline Cast (Auto) 11-20 H (0-2) /lpf U Epithel Cells (Auto) 6-10 H (0-2) /hpf Urine Bacteria (Auto) 1+ H (None Seen) Uric Acid Crystals Present A (None Prsent) Triple Phos Crystals Present A (None Prsent) Hyaline Casts Present A (None Presnt) /lpf Urine Mucus Present A (None Prsent) Diagnostic Findings XR chest 1V portable CLINICAL HISTORY: AFib, PNA, SOB COMPARISON STUDY: 11/03/2024 FINDINGS: There is stable cardiomegaly with pulmonary vascular congestion. Stable diffuse pulmonary interstitial prominence. No lobar consolidation or pleural effusion. No pneumothorax. IMPRESSION: 1. Stable CHF. 2. Pulmonary interstitial opacities could represent mild pulmonary edema or interstitial pneumonia. Medications Administered ER medications given: Metoprolol 5 mg IV Ceftriaxone 2000 mg IV Azithromycin 500 mg IV Metoprolol 5 mg IV ECG Rate (beats per minute): 128 Rhythm: atrial fibrillation Findings: + other (Nonspecific T wave abnormalities) Comparison ECG Date: from (August 30, 2024) Change: no significant change Code Status & VTE Plan Code Status DNR/DNI VTE Prophylaxis Plan VTE Prophylaxis will be ordered: Yes Critical Care Time Critical Care Time: Yes Total Critical Care Time: 40 PG Care Time/CCT Total # of Minutes Spent Total Time Spent with Patient: Total time spent is greater than 50% in coordination of care (as documented) at patient's floor/unit and/or counseling patient: Critical Care Time: Yes Total Critical Care Time: 40 Coding Level of Care Code 78114 INT INP/OBS CARE 3/75MIN Diagnoses Cardiogenic shock R57.0 Acute on chronic heart failure with preserved ejection fraction I50.33 Atrial fibrillation with rapid ventricular response I48.91 Pneumonia J18.9 Lactic acidosis E87.20 Sepsis A41.9 Non compliance with medical treatment Z91.199 Coronary artery disease I25.10 Acute respiratory failure with hypoxia J96.01 Additional Codes Critical Care Time - Critical Care Time: Yes ([id number])
[2024-11-16] MEDS ORDERED: STAT IV Infusion **Titration per Protocol STA (17:58)
[2024-11-16] MEDS: DIGOXIN 250 MCG in SYRINGE 9 ML IV STA (18:03)
[2024-11-16 18:08] LABS: ANTI-Xa, UFH(UnfractionatedHep 0.19 IU/ml (0.3-0.7); INR 1.1 (0.9-1.1); Partial Thromboplastin Ratio 0.9; Partial Thromboplastin Time 25 Seconds (21-31); Prothrombin Time 12.2 Seconds (9.0-12.0)
[2024-11-16] MEDS: PHENYLEPHRINE/NSS 25 MG/250 ML BAG IV SCH (18:10)
[2024-11-16] MEDS: ONDANSETRON INJ 2 MG/ML 2 ML VIAL IV STA (18:33)
[2024-11-16] MEDS ORDERED: Heparin IV Adult Wt-Based Standard w/ INITIAL Bolus Protocol IV STA (18:49)
[2024-11-16] MEDS: ETOMIDATE 2 MG/ML 20 ML VIAL IV ONE ×3 (18:54→19:42)
[2024-11-16 19:00] LABS: Adenovirus PCR Not Detected (NotDetected); Bordetella parapertussis PCR Not Detected (NotDetected); Bordetella pertussis PCR Not Detected (NotDetected); Chlamydia pneumoniae PCR Not Detected (NotDetected); Coronavirus 229E PCR Not Detected (NotDetected); Coronavirus CoV-2 (COVID19)PCR Not Detected (NotDetected); Coronavirus HKU1 PCR Not Detected (NotDetected); Coronavirus NL63 PCR Not Detected (NotDetected); Coronavirus OC43PCR Not Detected (NotDetected); Human Metapneumovirus PCR Not Detected (NotDetected); Influenza A NoSubtype PCR DETECTED (NotDetected); Influenza B PCR Not Detected (NotDetected); Mycoplasma pneumoniae PCR Not Detected (NotDetected); Parainfluenza Virus 1 PCR Not Detected (NotDetected); Parainfluenza Virus 2 PCR Not Detected (NotDetected); Parainfluenza Virus 3 PCR Not Detected (NotDetected); Parainfluenza Virus 4 PCR Not Detected (NotDetected); Respiratory Syncytial VirusPCR Not Detected (NotDetected); Rhinovirus/Enterovirus PCR Not Detected (NotDetected)
[2024-11-16] MEDS ORDERED: HEPARIN SOD (PORCINE) 1000 UNIT/ML IV ONE (19:04)
[2024-11-16] MEDS ORDERED: 0.2 MICRON FILTER SET 1 EACH IV ONE ×2 (19:09→23:00)
[2024-11-16] MEDS ORDERED: HEPARIN 25000 UNIT/500 ML 25,000 UNITS/500 ML BAG IV SCH (19:15)
[2024-11-16] MEDS: DIGOXIN 125 MCG in SYRINGE 9.5 ML IV STA (19:27)
[2024-11-16] MEDS: AMIODARONE / D5W 150 MG/100 ML BAG IV STA (19:28)
[2024-11-16] MEDS: AMIODARONE 150MG / 100ML D5W IV ONE (19:31)
[2024-11-16] MEDS: HYDROCORTISONE SOD SUCCINATE 100 MG/2 ML VIAL IV STA (19:33)
[2024-11-16 19:55] LABS: iSTAT Arterial Blood Gas HCO3 11 meg/L (19-24); iSTAT Arterial Blood Gas pCO2 18 mmHg (35-46); iSTAT Arterial Blood Gas pH 7.39 (7.35-7.45); iSTAT Arterial Blood Gas pO2 193 mmHg (80-95); iSTAT Carbon Dioxide 12 mmol/L (24-31); iSTAT Hematocrit 47 % (37-47); iSTAT Potassium 5.5 mmol/L (3.3-5.0); iSTAT Sodium 135 mmol/L (135-144)
[2024-11-16] MEDS ORDERED: GLUCAGON FOR INJ 1 MG VIAL SQ PRN (20:34)
[2024-11-16] MEDS ORDERED: DEXTROSE 50% 50 ML SYRINGE IV PRN (20:34)
[2024-11-16] MEDS ORDERED: GLUCOSE 40% GEL 15 GM TUBE PO PRN (20:34)
[2024-11-16] MEDS ORDERED: GLUCOSE 10 TAB/TUBE PO PRN (20:34)
[2024-11-16] MEDS ORDERED: PHARMACY GLYCEMIC MGMT CONSULT PRN (20:34)
[2024-11-16] MEDS ORDERED: CARBOHYDRATES FOR HYPOGLYCEMIA PO PRN (20:34)
--- NOTE | 2024-11-16 20:39 | Procedure Note ---
Procedure Note Date of Service November 16, 2024 ARTERIAL LINE PROCEDURE NOTE: Procedure: Arterial Line Placement Attending: Dr. Raya APC: Bianca Singh PA-C Indication: Monitoring on Pressors/Frequent labs Anesthesia: None Emergent procedure. A time-out was completed verifying correct patient, procedure, site, positioning, and implant(s) or special equipment if applicable. Allens test was performed to ensure adequate perfusion. Patients L wrist was prepped and draped in the usual sterile fashion. Ultrasound guidance was used to aid needle placement. A 20g Arrow arterial line was introduced into the L radial artery. Catheter was threaded, and the needle was removed with appropriate blood return. Good waveform was observed. The patient tolerated the procedure well. Blood Loss: Minimal Complications: None Procedural Ultrasound Guidance: Procedure Date: 11/16/2024 Indication: Shock Attending: Dr. Raya APC: Bianca Singh PA-C Artery Identified: YES Complications: NONE Patient tolerated procedure: WELL Coding Additional Codes Date of Service ([facility].SURGERY)
--- NOTE | 2024-11-16 20:43 | Procedure Note ---
Procedure Note Date of Service November 16, 2024 INTERNAL JUGULAR CENTRAL LINE PROCEDURE NOTE: Procedure: Left Internal Jugular Central Line Placement Attending: Dr. Raya APC: Bianca Singh PA-C Indication: Central Drug Administration, Poor Venous Access, Multiple Lab Draws Necessary, etc. Anesthesia: Lidocaine 1% Emergent procedure. A time-out was completed verifying correct patient, procedure, site, positioning, and implants(s) or special equipment if applicable. Patients L Neck was cleansed and draped in the typical sterile fashion using Chloraprep. The Internal Jugular Vein and Carotid Artery were identified using ultrasound. The superficial tissue was anesthetized using 4 mL of 1% lidocaine without epinephrine under direct visualization with the ultrasound. After adequate anesthetization was achieved, the Internal Jugular vein was cannulated under direct ultrasound guidance using an introducer needle on a syringe. Good venous blood return was maintained prior to removal of syringe from introducer needle. Using Seldinger Technique, a guide wire was advanced through the introducer needle without resistance. The introducer needle was removed. A small incision was made in penetrating fashion at the guide wire insertion site utilizing an 11 blade scalpel. The dilator was advanced to the vessel without resistance. The dilator was exchanged for the triple lumen catheter which was advanced into the vessel without resistance. The guide wire was removed intact from the catheter without issue. Claves were placed on each catheter tip with confirmation of good blood flow from each lumen. Each port was easily flushed with sterile saline. The catheter was placed at 20 cm and sutured in place. BioPatch was applied to the catheter and a sterile Tegaderm dressing was applied over the catheter with careful attention to sterility. Patient tolerated procedure well. No immediate complications were met. Post procedure x-ray was completed, placement was appropriate and no pneumothorax was noted. Procedural Ultrasound Guidance: Procedure Date: 11/16/2024 Indication: Line placement Attending: Dr. Raya APC: Bianca Singh PA-C Artery AND Vein visualized: Y Compressible Vein: Y Guidewire or Short Catheter seen in vein prior to dilation: Y Line confirmed in Vein with ultrasound: Y Coding Additional Codes Date of Service ([facility].SURGERY)
--- NOTE | 2024-11-16 20:53 | Critical Care Consultation ---
Date of Consultation November 16, 2024 Assessment & Plan (1) Influenza: (2) Atrial fibrillation with rapid ventricular response: (3) Acute kidney injury: (4) Cystitis: (5) Septic shock: (6) Lactic acidosis: Plan Reason Critically Ill: #Acute hypoxemic respiratory failure #Shock, septic vs. hypovolemic #Influenza A #Acute kidney injury, prerenal #Lactic acidosis #NAGMA #Concern for acute cystitis Neuro - RASS GOAL 0 Avoid sedating medications APAP PRN pain/fever No focal deficits post cardioversion, thus will start AC Cardiac - Tachycardia and increased afterload causing mild pulmonary edema POCUS shows flat IVC, will administer 500cc LR challenge Continue neosynephrine for MAP goal > 65mmHg Repeat EKG post-cardioversion Heparin infusion, transition back to Eliquis as able Continue amiodarone infusion, restart home Digoxin Continue statin if LFTs WNL in AM Hold BB, Entresto, Aldactone pending hemodynamic improvement Respiratory - Aspiration precautions. Possible emesis in ED, watch for signs of aspiration pneumonitis and consider broadening coverage if needed. SpO2 goal > 92%, wean O2 as tolerated ABG shows compensated metabolic acidosis CXR stable from prior GI - Diet: NPO SUP: N/A Bowel regimen: Miralax RENAL/LYTES - Trend lactate to clearance IVF as above Replete electrolytes as indicated Can for accurate I/Os placed in ED, likely remove tomorrow Maintain net even with frequent re-evaluation of volume status ENDO - BG 140-180 per SCCM guidelines ISS if needed while inpatient Received dose of hydrocortisone in ED. Random cortisol 20. Can consider addition of schedule steroids HEME - Home Eliquis held. Patient was not taking due to feeling ill for days. Continue heparin infusion as above SCDs ID - Continue ceftriaxone for probable UTI. Past culture data reviewed - no MDROs. Difficult to rule out superimposed bacterial pneumonia. Can continue azithromycin for now. No indication for Vancomycin as MRSA negative. BCx x2 pending, UCx pending Trend fever curve, de-escalate antibiotics as clinically feasible LINES/TUBES/DRAINS - LIJ CVC (Day #1) L radial arterial line (Day #1) Can (Day #1) PIV x1 DVT PROPHYLAXIS - As above I have personally spent 52 minutes of critical care time in the direct management of this patient. This is a life/limb threatening event. This includes time spent evaluating patient, direct bedside care, chart review, placing orders, interpretation of diagnostic studies, discussion with consultants, patient, and family members, as well as other required patient management activities. This time is exclusive of all separately billable procedures, and teaching time and separate from and in addition to any other critical care service time. Thank you for allowing us to participate in the care of this patient. Please refer to my attending physician's documentation for any further recommendations. History of Present Illness Reason for Consultation: Shock Requesting Physician: Kalli Attending Physician: Dilip Mahan MD History of Present Illness Ms. Ana Eckert is a 79YOF with a history of CAD s/p PCI RCA and LAD (2020), ischemic cardiomyopathy (HFrEF 40-45%), tricuspid valve mass (fibroelastoma), chronic atrial fibrillation on Eliquis, hypertension, hyperlipidemia incontinence who presented to [facility] ED on 11/16/2024 due to complaints of fevers, chills, body aches, and dysuria for at least a few days. She was previously diagnosed with Influenza A in mid-October. On arrival to ED patient tachycardic to 130bpm and normotensive. Saturating 100% on room air. Initial work-up was remarkable for leukocytosis, possible residual pneumonia on CXR. LA 2.4. She received azithromycin and ceftriaxone as well as 5mg IV Lopressor x2 for HR control. Admitted to Hospitalist. Around 1900 patient became profoundly hypotensive, tachycardic, minimally response. She was cardioverted x1 at 200J. Procedural sedation etomidate 10mg. She converted to sinus rhythm. Phenylephrine was started with improvement in BP. She was obtunded post-procedure and thus BVM respirations provided for approximately 15 minutes until she began to respond. She was placed on HFNC. Amiodarone infusion started. ICU was consulted for admission. Patient seen in ED C01. She is cyanotic, unarousable, grunting, snoring respirations. BVM ongoing. BP undetectable x multiple checks, then MAP 39. Arterial line was placed for accurate measurement. POCUS performed in ED with gr oss systolic function appearing at baseline, IVC is flat on subxiphoid view. RV normal size. 500cc LR ordered. She was transferred to ICU in stable condition. Patient is unable to provide history, ROS on initial evaluation. Allergies Allergy/AdvReac Type Severity Reaction Status Date / Time adhesive Allergy Unknown HEAVIER Verified 11/05/24 10:22 SURG TAPE-REDNESS SORE SKIN cat dander Allergy Unknown ITCHY Verified 11/05/24 10:22 NOSE, ITCHY EYES,RUNNY NOSE grass pollen-perennial rye, Allergy Unknown GRASS,MOLD-ITCHY Verified 11/05/24 10:22 standar EYES RUNNY NOSE latex Allergy Unknown CONTACT Verified 11/05/24 10:22 DERMATITIS nickel Allergy Unknown Rash Verified 11/05/24 10:22 tetanus toxoid, adsorbed Allergy Unknown SWELLING Verified 11/05/24 10:22 AT SITE KOLE Inhibitors AdvReac Unknown COUGH Verified 11/05/24 10:22 Home Medications Medication Instructions Recorded Confirmed Type acetaminophen 500 mg tablet 1,000 mg PO BID Pain 11/28/20 11/05/24 History apixaban 5 mg tablet (Eliquis) 5 mg PO BID #60 tabs 09/02/24 11/05/24 Rx aspirin 81 mg tablet,delayed 81 mg PO QAM #365 tabs 09/02/24 11/05/24 Rx release atorvastatin 40 mg tablet 80 mg (2 x 40 mg) PO QAM #30 tabs 09/02/24 11/05/24 Rx benzonatate 100 mg capsule 100 mg PO TID #20 caps 09/02/24 11/05/24 Rx digoxin 125 mcg (0.125 mg) tablet 0.125 mg PO MoWeFr@1600 #30 tabs 09/02/24 11/05/24 Rx (Digitek) guaifenesin 600 mg tablet, 600 mg PO Q12 #20 tabs 09/02/24 11/05/24 Rx extended release 12 hr (Mucinex) metoprolol succinate 50 mg 100 mg (2 x 50 mg) PO BID #60 tabs 09/02/24 11/05/24 Rx tablet,extended release 24 hr sacubitril 24 mg-valsartan 26 mg 1 tab PO BID #60 tabs 09/02/24 11/05/24 Rx tablet (Entresto) spironolactone 25 mg tablet 12.5 mg (1/2 x 25 mg) PO DAILY #30 09/02/24 11/05/24 Rx tabs benzonatate 100 mg capsule 100 mg PO TID PRN cough #20 caps 11/03/24 11/05/24 Rx Patient History Medical History History of mood disorder Acute dyspnea Encounter for pre-operative examination COVID-19 ruled out Meningioma CKD (chronic kidney disease) stage 3, GFR 30-59 ml/min Methylenetetrahydrofolate reductase (MTHFR) deficiency History of recent hospitalization [facility] 08/20-08/22/23 for ongoing SOB and afib with RVR (post COVID). HR improved with digoxin and BB. Repeat ECHO showed (again) twicuspid valve mass; scheduled for [facility] 09/24/23 COVID-19 tested positive 08/09/23 (had acute visit with PCP); tx with paxlovid; sx resolved as of 09/19/23 Mitral valve regurgitation Mild per 08/2023 echo Verbalizes suicidal thoughts Depression with suicidal ideation Pt reports she feels safe with herself and has good support system. Hypothyroidism Urinary tract infection March 2020 > resolved History of cardioversion approx 2 yrs ago; follows with for persitent Afib Hx of breast cancer left; s/p lumpectomy Anxiety Kidney stones passed on own History of DVT (deep vein thrombosis) ~1999> left leg > unknown etiology Surgical History History of tooth extraction Hx of eye surgery History of cataract surgery History of bilateral tubal ligation History of section History of right knee joint replacement History of left knee replacement S/P bunionectomy History of colonoscopy S/P left inguinal hernia repair Status post lumbar surgery S/P QUINCY-BSO Hx of lumpectomy Status post coronary artery stent placement Family History Other Heart disease No family history of adverse response to anesthesia Social History Smoking Status: Never smoker Second Hand Exposure: Yes (parents and ); Do You Dip or Chew Tobacco: No; Hx Alcohol Use: No Hx Substance Use: No Preferred Language: Georgian Communication Ability: Effective Rn Document Improvement Specialist Required: No Beliefs That Will Affect Care: None marital status: / Current Living Situation: Family Current Living Situation Comment: lives at home with son Feels Safe at Home: Yes Assistive Devices: Cane and Walker Review of Systems Review of Systems: All systems reviewed & are unremarkable except as noted in HPI & below Physical Exam Constitutional: + acute distress, + ill appearing, + dis heveled and + lethargic Being bagged via BVM on my arrival Eyes: PERRL, conjunctivae normal, anicteric sclerae ENMT: unable to be assessed due to BVM Neck: trachea midline, no thyromegaly Respiratory: + grunting Auscultation: + diminished lung sounds and + bronchovesicular breath sounds Cardiovascular: Rate/Rhythm: + tachycardic Vessels: no JVD Extremities: + pedal edema; + abnormal capillary refill irregular rhythm chronic appearing pedal edema, nonpitting Gastrointestinal (Abdomen): Inspection/Auscultation: abdomen normal to inspection and normal bowel sounds; abdomen not distended Skin: + turgor decreased and + mottling; no ja undice cyanotic BLE, capillary refills toes > 3 seconds Neurologic: + obtunded Cranial Nerves: PERRL Genitourinary: Can in place draining dark yellow urine Results & Data Results & Data Vital Signs (Past 12 Hours) Vital Signs Temp Pulse Pulse Resp BP BP Pulse Ox 11/16/24 19:43 99 H 31 H 95 11/16/24 19:42 115/72 11/16/24 19:27 101 H 11/16/24 19:26 99 H 11/16/24 19:21 102 H 38 H 59/33 L 100 11/16/24 19:17 95 H 35 H 99/83 L 96 11/16/24 19:10 102 H 34 H 136/100 99 11/16/24 19:07 163/139 H 11/16/24 19:03 99 H 11/16/24 18:57 147 H 93 11/16/24 18:56 138 H 31 H 91 11/16/24 18:54 143 H 94 11/16/24 18:53 93 11/16/24 18:45 149 H 28 H 11/16/24 18:40 151 H 26 H 11/16/24 18:30 151 H 26 H 11/16/24 18:30 141 H 34 H 11/16/24 18:15 153 H 33 H 73 L 11/16/24 18:00 126 H 25 H 11/16/24 17:39 124 H 28 H 85 L 11/16/24 17:35 87/64 L 11/16/24 17:35 87/64 L 11/16/24 17:30 136 H 20 11/16/24 17:24 137 H 19 11/16/24 17:08 91/74 L 11/16/24 17:08 91/74 L 11/16/24 17:08 91/74 L 11/16/24 17:06 125 H 41 H 100 11/16/24 17:04 105 H 11/16/24 17:01 105 H 28 H 97 11/16/24 17:00 123 H 19 99 11/16/24 16:57 124 H 41 H 92 11/16/24 16:57 137 H 19 91/62 L 92 11/16/24 16:56 121 H 91/62 L 11/16/24 16:47 59/29 L 11/16/24 16:38 124 H 136/76 11/16/24 16:33 108 H 13 99 11/16/24 16:30 114 H 26 H 136/76 96 11/16/24 16:15 112/81 11/16/24 16:03 119 H 34 H 97 11/16/24 16:02 105/75 11/16/24 16:02 105/75 11/16/24 15:54 119 H 25 H 100 11/16/24 15:46 120 H 110/86 11/16/24 15:46 110/85 11/16/24 15:46 110/85 11/16/24 15:36 119 H 12 95 11/16/24 15:32 131 H 106/81 11/16/24 15:31 126 H 25 H 106/81 93 11/16/24 15:30 106/81 11/16/24 15:09 140 H 19 95 11/16/24 15:06 127 H 16 98 11/16/24 15:01 99/78 L 11/16/24 15:01 99/78 L 11/16/24 15:00 36.7 C 120 H 13 99/78 L 93 11/16/24 14:57 137 H 16 100 11/16/24 14:45 130 H 13 94 11/16/24 14:36 127 H 17 98 11/16/24 14:18 136 H 19 95 11/16/24 14:09 143 H 31 H 97 11/16/24 14:01 123/78 11/16/24 13:54 139 H 32 H 99 11/16/24 13:48 133 H 34 H 95 11/16/24 13:42 141 H 24 96 11/16/24 13:31 128/91 11/16/24 13:31 128/91 11/16/24 13:27 136 H 21 100 11/16/24 13:12 139 H 31 H 93 11/16/24 13:12 134 H 11/16/24 13:05 130 H 23 132/92 100 11/16/24 13:01 36.1 C L 130 H 34 H 132/92 100 O2 Del Method O2 Flow Rate FiO2 11/16/24 19:43 High Flow Nasal Cannula 50 85 11/16/24 19:42 11/16/24 19:27 11/16/24 19:26 11/16/24 19:21 Ambu-Bag 15 11/16/24 19:17 Ambu-Bag 11/16/24 19:10 Ambu-Bag 11/16/24 19:07 11/16/24 19:03 11/16/24 18:57 11/16/24 18:56 High Flow Nasal Cannula 11/16/24 18:54 11/16/24 18:53 High Flow Nasal Cannula 11/16/24 18:45 11/16/24 18:40 High Flow Nasal Cannula 50 100 11/16/24 18:30 Oxyhood 50 100 11/16/24 18:30 11/16/24 18:15 11/16/24 18:00 11/16/24 17:39 11/16/24 17:35 11/16/24 17:35 11/16/24 17:30 11/16/24 17:24 11/16/24 17:08 11/16/24 17:08 11/16/24 17:08 11/16/24 17:06 11/16/24 17:04 11/16/24 17:01 Nasal Cannula 2 11/16/24 17:00 11/16/24 16:57 11/16/24 16:57 11/16/24 16:56 11/16/24 16:47 11/16/24 16:38 11/16/24 16:33 11/16/24 16:30 11/16/24 16:15 11/16/24 16:03 11/16/24 16:02 11/16/24 16:02 11/16/24 15:54 11/16/24 15:46 11/16/24 15:46 11/16/24 15:46 11/16/24 15:36 Nasal Cannula 2 11/16/24 15:32 11/16/24 15:31 11/16/24 15:30 11/16/24 15:09 11/16/24 15:06 11/16/24 15:01 11/16/24 15:01 11/16/24 15:00 Room Air 11/16/24 14:57 11/16/24 14:45 11/16/24 14:36 11/16/24 14:18 11/16/24 14:09 11/16/24 14:01 11/16/24 13:54 11/16/24 13:48 11/16/24 13:42 11/16/24 13:31 11/16/24 13:31 11/16/24 13:27 11/16/24 13:12 11/16/24 13:12 11/16/24 13:05 Room Air 11/16/24 13:01 Room Air Laboratory Results Reviewed Diagnostic Findings Reviewed Medications Administered See [facility] [place] Coding Level of Care Code 85793 CRITICAL CARE 1ST 30-74M Diagnoses Influenza J11.1 Atrial fibrillation with rapid ventricular response I48.91 Acute kidney injury N17.9 Cystitis N30.90 Septic shock A41.9; R65.21 Lactic acidosis E87.20 Time Spent (min) 52
[2024-11-16] MEDS ORDERED: ICU Protocol for HYPERglycemia SCH (21:00)
[2024-11-16] MEDS: ACETAMINOPHEN 1,000 MG/100 ML VIAL IV STA (21:15)
[2024-11-16 21:18] LABS: BUN Creatinine Ratio 15.2 (10-20); Calcium 7.5 mg/dl (8.6-10.3); Creatinine Clr Calc Pharmacy 34.2 ml/min; Magnesium 2.2 mg/dl (1.7-2.4); Phosphorus 7.2 mg/dl (2.5-4.9); Potassium 4.4 mmol/L (3.5-5.1)
--- OUTSIDE RECORDS SUMMARY | 2024-11-16 21:41 | External Medical Summary | Summary of Care ---
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 30 Tablet 06/27/20 23 Active busPIRone HCl 15 MG Oral Tablet (Buspar)Indication s:Stress at home Take 1 Tablet by mouth in the morning and 1 Tablet before bedtime. 60 Tablet 06/27/20 23 Active Clopidogrel Bisulfate 75 MG Oral Tablet (pLAVix)Indication s:S/P drug eluting coronary stent placement Take 1 Tablet by mouth in the morning. 30 Tablet 06/27/20 Active Digoxin 125 MCG Oral Tablet (Lanoxin)Indicatio ns:S/P drug eluting coronary stent placement,Persiste nt atrial fibrillation (HCC),Coronary artery disease of [place] artery of [place] heart with stable angina pectoris (HCC),Hypertensive heart disease with chronic diastolic congestive heart failure (HCC) TAKE ONE TABLET BY MOUTH IN THE MORNING ON SATURDAY, SATURDAY AND SATURDAY 12 Tablet 06/27/20 Active Apixaban 5 MG Oral Tablet (Eliquis)Indicatio ns:Persistent atrial fibrillation (HCC) Take 1 Tablet by mouth in the morning and 1 Tablet before bedtime. 60 Tablet 06/27/20 Active Furosemide 40 MG Oral Tablet (Lasix) Take 1 Tablet by mouth in the morning. 30 Tablet 06/27/20 Active Isosorbide Mononitrate ER 30 MG Oral Tablet Extended Release 24 Hour (Imdur) Take 1 Tablet by mouth in the morning. 30 Tablet 06/27/20 Active Magnesium Oxide 400 MG Oral Tablet Take 1 Tablet by mouth at bedtime. 30 Tablet 06/27/20 Active Potassium Chloride ER 10 MEQ Oral Capsule Extended Release Take 1 Capsule by mouth in the morning and 1 Capsule before bedtime. 60 Capsule 06/27/20 Active Spironolactone 25 MG Oral Tablet (Aldactone)Indicat ions:Hypertensive heart disease with chronic diastolic congestive heart failure (HCC) Take 1 Tablet by mouth in the morning. 30 Tablet 06/27/20 Active Vitamin D 25 MCG (1000 UT) Oral Tablet Take 1 Tablet by mouth in the morning. 30 Tablet 06/27/20 Active guaiFENesin ER 600 MG Oral Tablet Extended Release 12 Hour (Mucinex)Indicatio ns:Viral upper respiratory tract infection Take 1 Tablet by mouth in the morning and 1 Tablet before bedtime. Take with plenty of water. Do not cut, crush or chew. 40 Tablet 2 08/09/20 Active Additional Information Patient not taking.Reported on 10/17/2023 Nitroglycerin 0.4 MG Sublingual Tablet Sublingual (Nitrostat)Indicat ions:Coronary artery disease involving [place] coronary artery of [place] heart without angina pectoris Place 1 Tablet under the tongue every 5 minutes as needed for Pain, Chest. 25 Tablet 08/20/20 23 Active Venlafaxine HCl ER 150 MG Oral Capsule Extended Release 24 Hour (Effexor XR)Indications:Moo d disorder (HCC),JASON (generalized anxiety disorder) Take 1 Capsule by mouth in the morning. Do not cut, crush, or chew.. 30 Capsule 5 01/26/20 24 Active Metoprolol Succinate ER 50 MG Oral Tablet Extended Release 24 Hour (toPROL XL)Indications:Per sistent atrial fibrillation (HCC),HTN, goal below 140/90 Metoprolol ER 1.5 tablets in the morning and 1 tablet in the evening. Has been taking one tab in am and one tab in pm 225 Tablet 1 04/14/20 24 Active Hospital, Clinic, or Other Facility Administered Medication Ordered Dose Route Frequency Start Date End Date Status Albuterol Sulfate (Proventil) (2.5 MG/3ML) 0.083% inhalation solution 2.5 mgIndications:Tachycard ia,CARRASCO (dyspnea on exertion) 2.5 mg NEBULIZER ONCE PRN 12/27/2023 12/26/2024 Active documented as of this encounter (statuses as of 11/09/2024) Active Problems Problem Noted Date Diagnosed Date [...] 10/01/2022 Diabetes mellitus 10/01/2022 Aortic atherosclerosis 07/12/2021 Overview (07/12/2021): CXR 12/2020 S/P hip replacement, left 10/06/2020 [...] gait 05/05/2020 DNR (do not resuscitate) 05/05/2020 Stress incontinence 03/31/2020 Coronary artery disease invo lving ven[place]ie ir[place] coronary artery of [place] heart without angina pectoris 10/12/2019 Hypertensive heart [...] intolerance 11/21/2011 HTN, GOAL BELOW 140/90 09/07/2009 Overview (09/07/2009): Modified per HTN protocol #16. GENERAL OSTEOARTHROSIS documented as of this encounter (statuses as of 11/09/2024) Resolved Problems Problem Noted Date Diagnosed Date Resolved Date Unspecified dementia, unspec ified severity, without behavioral disturbance, psychotic disturbance, mood disturbance, and anxiety 10/01/2022 12/19/2022 Overview (12/19/2022): Duplicate Unspecified dementia, unspec ified severity, without behavioral disturbance, psychotic disturbance, mood disturbance, and anxiety 10/01/2022 01/01/2023 KALEE (acute kidney injury) 05/05/2020 Overview (05/30/2020): duplicate Dehydration 05/05/2020 05/30/2020 Overview (05/30/2020): Acute, history Type 2 diabetes mellitus wit h hemoglobin A1c goal of less than 7.0% 05/05/2020 09/19/2021 Anxiety state 05/05/2020 05/30/2020 Overview (05/30/2020): history History of hysterectomy 05/05/2020 11/0 03/2020 [facility] resident 05/05/20202022 Urinary tract infection without hematuria 05/02/2020 05/30/2020 Overview (05/30/2020): history Avascular necrosis 05/02/2020 ADVANCE DIRECTIVE INFORMATION 03/31/2020 08/24/2024 Overview (07/24/2005): No, Advance Directive brochure given to patient at prior appointment. Functional incontinence 03/31/202008/23 Urge incontinence of urine 03/31/2020 1 11/19/2020 Urinary incontinence without sensory awareness 03/31/2020 09/19/2021 Continuous leakage of urine 03/31/2020 05/30/2020 Overview (05/30/2020): duplicate Kidney disease, chronic, sta ge III (GFR 30-59 ml/min) 12/01/2019 07/04/2023 Overview: Per CKD protocol Diastolic heart failure 07/23/201911/21 Overview (12/03/2019): Chronic diastolic heart failure on the PL Class 2 severe obesity due t o excess calories with serious comorbidity and body mass index (BMI) of 39.0 to 39.9 in adult 07/23/2019 3 Overview (12/19/2022): Body Mass Index: 34.00 kg/mAbnormal 1.575 m (5' 2") as of 10/01/2022 84.3 kg (185 lb 14.4 oz) as of 10/31/2022 Historical Prediabetes 12/31/2017 05/05/2020 Overview: Per Prediabetes protocol #1 Body mass index (BMI) of 40. 0 to 44.9 in adult 07/22/2017 12/03/2019 Overview (12/03/2019): History Mild intermittent asthma without complication 06/28/20 17 07/23/2019 Right acute serous otitis media 01/17/2017 04/16/2017 ETD (eustachian tube dysfunction) 01/17/2017 04/16/2017 Mixed hearing loss of right ear 01/17/2017 04/16/2017 Deep vein thrombosis (DVT) o f left lower extremity 12/19/2016 06/28/2017 Overview (12/19/2016): Left fem/pop DVT Adrenal adenoma 01/26/2015 08/15/2017 Depression 11/26/2014 12/19/2022 Overview (12/19/2022): More specified dx listed on pl Neoplasm of uncertain behavior of skin 11/19/2013 08/15/2017 Inflamed seborrheic keratosis 11/19/2013 06/28/2017 Obesity, morbid (more than 1 00 lbs over ideal weight or BMI > 40) 09/08/2013 04/16/2017 Overview (09/08/2013): bmi= 42.62 09/08/13 Acute pharyngitis 09/08/2013 04/16/2017 S/P TKR (total knee replacement) 01/13/2012 07/24/2018 History of MTHFR mutation 10/01/2011 Obesity, morbid (more than 1 00 lbs over ideal weight or BMI > 40) 04/04/2010 04/16/2017 Overview (01/09/2016): Per Obesity Protocol, #19 ICD-10 update of inactive term Asthma with severity to be determined 04/03/2010 10/17/2011 Overview (01/30/2016): Per Provider Protocol. ICD-10 update of inactive term Asthma in remission 04/03/2010 06/28/20 17 Overview (10/17/2011): Per Provider Protocol. Ventral hernia, unspecified, without mention of obstruction or gangrene 09/05/2009 08/15/2017 Benign neoplasm of colon 05/27/200705/2017 Overview (06/03/2007): hyperplastic tissue-repeat colonoscopy inm 1 year ADJ DISORDER W/DEPRES MOOD 07/05/2004 1 Pyogenic granuloma 12/19/2002 7 HYPERTENSION NOS 12/16/2002 09/08/2009 Overview (09/08/2009): Modified per HTN protocol #16. Malignant neoplasm of cerebral meninges 02/26/2002 08/15/2017 Malignant neoplasm of lower- outer quadrant of female breast 01/19/2001 07/24/2018 Overview (01/31/2016): ICD-10 update of inactive term Allergic rhinitis 09/08/2013 Calculus of kidney 7 documented as of this encounter (statuses as of 11/09/2024) Immunizations Name Administration Dates Next Due COVID-19 [...] Adjuvanted, 65+ Yrs, IM (FLUAD) 08/26/2020 Seasonal Influenza Vac., MDV , IM, 0.5 mL (Fluzone) 08/03/2014,07/09/2013,07/21/2012,06/22,09/07/2010,07/26/2009,08/04/20 08,09/02/2007 08/03/2015 Seasonal Influenza, PF, 6 M & above, IM , (FluLaval or Fluzone) 09/07/2019,07/24/2018 09/07/2020 Seasonal Influenza, Quadriva lent Hd (Fluzone Hd) 08/27/2023 Seasonal Influenza, Quadriva lent, No Preserve, IM 07/27/2016,07/27/2015 TDAP, Age 7 and older, IM (Adacel) [...] ages 0-17 years) Not on file 08/27/2023 Comments No Sex and Gender Information Value Date Recorded Sex Assigned at Female 01/24/2019 12:53 PM EDT Legal Sex Female 5:59 AM EST Gender Identity Female 01/24/2019 12:53 PM EDT Sexual Orientation Straight 01/24/2019 12 :53 PM EDT Occupation Industry Job Start Date Job End Date retired Not on file Not on file Not on file documented as of this encounter Plan of Treatment Scheduled Procedures Name Priority Associated Diagnoses Date/Ti me COLONOSCOPY FLEXIBLE PROXIMAL DIAGNOSTIC Recall History of colon polyps Health Maintenance Due Date Last Done Comments Colonoscopy 06/21/2020 06/21/2015, 10/2014, 05/09/2010, Additional history exists CKD PHOS USE SMARTSET 21523 01/02/202412/19, 03/20/2022, 09/19/2021, Additional history exists DIG LEVEL FOR MEDICATION MONITORING YEARLY 01/02/2024 01/01/2023, 03/20/2022, 05/04/2020, Additional history exists GFR 05/20/2024 11/20/2023, 08/22, 07/26/2023, Additional history exists HbA1c 05/20/2024 11/20/2023, 05/21, 01/01/2023, Additional history exists Diabetic Foot Exam 06/03/2024 06/03/2023, 05/18/2020 Diabetic Eye Exam 06/10/2024 06/10/2023, , 06/10/2023, Additional history exists COVID-19 Vaccine ( season) 2024 06/03/2023, 05/19/2021, 04/28/2021 Influenza Vaccine (FLU shot) (#1) 2024 08/27/2023, 08/26/2020, 09/07/2019, Additional history exists Albumin/Creatinine Ratio 08/20/2024 023, 03/20/2022, 09/19/2021, Additional history exists Depression Monitoring 08/20/2024 08/20/2023 CKD HGB USE SMARTSET 97579 11/20/202411/20, 11/20/2023, 09/16/2023, Additional history exists DXA Scan 08/29/2025 08/29/2018, 03/21, 04/06/2011 RETIRED - COLONOSCOPY-EVERY 5 YRS AGES 18-100 Discontinued 06/21/2015, 06/21/2015, 05/09/2010, Additional history exists Pneumococcal Vaccine: 50+ Years Completed 01/19/2016, 03/03/2013, 06/04/2011, Additional history [...]
[2024-11-16] MEDS: HEPARIN 25000 UNIT/500 ML 25,000 UNITS/500 ML BAG IV SCH (22:06)
[2024-11-16] MEDS: ICU Protocol for HYPERglycemia SCH (22:09)
[2024-11-16] MEDS: Heparin IV Adult Wt-Based Standard *NO* INITIAL Bolus Protocol IV STA (22:09)
--- NOTE | 2024-11-16 22:41 | XRay Report ---
Exam(s): XR CXR 1 VIEW EXAM: XR Chest, 1 View CLINICAL HISTORY: Reason for exam: line placement. TECHNIQUE: Frontal view of the chest. COMPARISON: November 16, 2024 FINDINGS: Lungs: Increase vascular and interstitial markings centrally in both lungs consistent with edema or pneumonia, unchanged. Pleural space: Unremarkable. No pneumothorax. Heart: The cardiac silhouette is mildly enlarged, similar to previous. Mediastinum: Unremarkable. Normal mediastinal contour. Bones/joints: Mild osteophytosis in the mid to lower thoracic spine. No acute fracture. Tubes, lines and devices: There is a left internal jugular central venous cath extending to the superior vena cava. Upper abdomen: There is no pneumoperitoneum under the diaphragm. IMPRESSION: 1. Increase vascular and interstitial markings centrally in both lungs consistent with edema or pneumonia, unchanged. 2. There is a left internal jugular central venous catheter extending to the superior vena cava. 3. The cardiac silhouette is mildly enlarged, similar to previous. Electronically signed by: Trevon Wilks MD 11/16/24 22:40 PM
[2024-11-16] MEDS: AMIODARONE / D5W 360 MG/200 ML BAG IV SCH (22:58)
[2024-11-17] MEDS ORDERED: STAT IV Infusion **Titration per Protocol STA (00:16)
[2024-11-17] MEDS: DIGOXIN 125 MCG in SYRINGE 9.5 ML IV STA ×2 (00:17→11:49)
[2024-11-17] MEDS: NOREPINEPHRINE/D5W 4 MG/250 ML PLCT IV SCH (01:06)
--- NOTE | 2024-11-17 03:06 | Ultrasound Report ---
EXAM: US venous doppler LE BI CLINICAL HISTORY: HX: PREV LLE 10/09/20. HYPOXIA. IMMOBLE x 1 WEEK DUE TO +FLU. H/O LT VENOUS ABLATION. TECHNIQUE: Ultrasound examination of bilateral lower extremity veins was performed in real-time and duplex. One or more of the following were performed- spectral analysis, resistive index, waveform analysis, and pulsed Doppler. COMPARISON: 10/09/2020. FINDINGS: History of left venous ablation. Visualized/broken flow noted in left great saphenous vein. Thick strands of possibly chronic and partial/nonocclusive thrombus within the left common femoral, proximal, and mid-superficial femoral with partial compression due to thick mcclendon. Right lower extremity veins are compressible, showing color flow and positive augmentation. Compression and Augmentation: All evaluated veins compress fully with applied transducer pressure right side. Augmentation of venous flow is noted with distal compression right side. Additional Findings: The left great saphenous vein and common femoral vein measure 0.31/0.43 cm at the junction. IMPRESSION: 1. No sonographic evidence of acute DVT was detected in the right common femoral, superficial femoral, popliteal posterior tibial, and peroneal veins, at the time of examination. 2. No sonographic features of acute DVT in the left lower extremity veins however thick strands of possibly chronic or partial/nonocclusive thrombus with significant recanalization within the left common femoral, proximal, and mid-superficial femoral veins with partial compression due to thick mcclendon. 3. No DVT was identified in the left lower extremity dated: 10/09/2020. Disclaimer: DVT could be missed early in the disease when clot burden is minimal. For patients with moderate and high pretest probability of DVT and negative ultrasound, the [employer] clinical guidelines recommend testing with a D-dimer assay or repeat ultrasound in 5-7 days. If symptoms worsen, the Society of [employer] in Ultras[employer] recommends repeating the ultrasound even earlier. Electronically signed by Aliya Alaniz 11-17-2024 03:05 AM
[2024-11-17] MEDS ORDERED: GLUCAGON FOR INJ 1 MG VIAL SQ PRN (04:21)
[2024-11-17] MEDS ORDERED: DEXTROSE 50% 50 ML SYRINGE IV PRN (04:21)
[2024-11-17] MEDS ORDERED: GLUCOSE 40% GEL 15 GM TUBE PO PRN (04:21)
[2024-11-17] MEDS ORDERED: CARBOHYDRATES FOR HYPOGLYCEMIA PO PRN (04:21)
[2024-11-17] MEDS ORDERED: GLUCOSE 10 TAB/TUBE PO PRN (04:21)
[2024-11-17] MEDS: AMIODARONE / D5W 360 MG/200 ML BAG IV SCH (04:25)
[2024-11-17 04:46] LABS: Hematocrit (blood only) 42.7 % (37.0-47.0); Hemoglobin 13.9 g/dl (12.0-16.0); Mean Corpuscular Hemoglobin 28.7 pg (25.0-34.0); Mean Corpuscular Hgb Conc 32.6 g/dL (32.0-36.0); Mean Corpuscular Volume 88.2 fL (80.0-100.0); Mean Platelet Volume 11.8 fL (9.4-12.4); Platelet Count 240 K/uL (130-400); RDW Coefficient of Variation 16.8 % (11.5-14.5); RDW Standard Deviation 51.8 fL (36.4-46.3); Red Blood Count 4.84 M/uL (4.20-5.40); White Blood Count 19.87 K/ul (4.8-10.8)
[2024-11-17 04:49] LABS: ANTI-Xa, UFH(UnfractionatedHep 0.59 IU/ml (0.3-0.7)
[2024-11-17 05:11] LABS: Basophils # (auto) 0.05 K/uL (0.00-0.20); Basophils % (auto) 0.3 %; Echinocytes 1+; Immature Granulocytes % (auto) 1.5 %; Lymphocytes % (auto) 2.5 %; Monocytes # (auto) 0.89 K/uL (0.11-0.59); Monocytes % (auto) 4.5 %; Neutrophils # (auto) 18.13 K/uL (1.40-6.50); Neutrophils % (auto) 91.2 %; Polychromasia 1+
[2024-11-17 05:20] LABS: Alanine Aminotransferase > 2500 U/L (7-52); Albumin Globulin Ratio 1.2 (0.9-2); Albumin Level 2.8 gm/dl (3.4-5.0); Alkaline Phosphatase 105 U/L (34-104); Anion Gap -8 (3-11); Aspartate Aminotransferase 6429 U/L (13-39); BUN Creatinine Ratio 17.2 (10-20); Bilirubin,Total 1.7 mg/dl (0.2-1.0); Blood Urea Nitrogen 26 mg/dl (6-23); Calcium 7.9 mg/dl (8.6-10.3); Carbon Dioxide 36 mmol/L (21-32); Chloride 109 mmol/L (98-107); Creatinine Clr Calc Pharmacy 29.9 ml/min; Globulin 2.3 gm/dl (2.5-4.0); Glucose 206 mg/dl (70-99(Fasting)); Phosphorus 5.8 mg/dl (2.5-4.9); Potassium 4.7 mmol/L (3.5-5.1); Sodium 137 mmol/L (136-145); Total Protein 5.1 gm/dl (6.0-8.3)
--- NOTE | 2024-11-17 05:33 | Communication Note ---
Date of Service: November 17, 2024 On multiple re-evaluations, patient is much improved. SHe is AAOx3. Drinking without difficulty. Breathing is non-labored. Currently complaining of pain in her groin which on exam she has multiple excoriations of labia minora without signs of infection. Patient tells me she has been incontinent chronically and uses adult diapers. As she has not been out of bed in weeks she has been urinating in bed. AM labs show shock liver, possibly delayed from hypoperfusion but given she has been off anticoagulation cannot rule out PVT. Abdominal exam remains overall benign with exception of suprapubic tenderness with deep palpation. Lactate has trended down. She is NSR with PACs, HR 50s. UOP remains poor. Obtain RUQ US with doppler CT AP WO CONTRAST now to rule out occult intraabdominal pathology Stop amiodarone given LFTs Order CK Norepinephrine Will consider broadening antibiotics in the interim Coding Level of Care Code None
[2024-11-17 05:58] LABS: Creatine Kinase 95 U/L (26-192)
[2024-11-17 06:02] LABS: iSTAT Art Bld Gas pCO2 Correct 31 mmHg (35-46); iSTAT Art Bld Gas pH Corrected 7.375 (7.35-7.45); iSTAT Arterial Blood Gas HCO3 18 meg/L (19-24); iSTAT Arterial Blood Gas pCO2 31 mmHg (35-46); iSTAT Arterial Blood Gas pH 7.38 (7.35-7.45); iSTAT Arterial Blood Gas pO2 95 mmHg (80-95); iSTAT Arterial Blood Gas pO2 C 95; iSTAT Carbon Dioxide 19 mmol/L (24-31); iSTAT Hematocrit 41 % (37-47); iSTAT Hemoglobin 13.9 g/dl (12.0-16.0); iSTAT Potassium 4.5 mmol/L (3.3-5.0); iSTAT Sample Type Arterial; iSTAT Site Art Line; iSTAT Sodium 137 mmol/L (135-144); iSTAT SpO2 98
[2024-11-17] MEDS: SODIUM CHLORIDE 0.9% 500 ML IV SCH (06:05)
[2024-11-17 06:12] LABS: Thyroid Stimulating Hormone 2.534 uIu/ml (0.300-4.500)
[2024-11-17 06:12] LABS: Albumin Level 2.8 gm/dl (3.4-5.0); Alkaline Phosphatase 111 U/L (34-104); Bilirubin Direct 0.9 mg/dl (0-0.2); Bilirubin,Total 1.7 mg/dl (0.2-1.0)
[2024-11-17 06:24] LABS: Alanine Aminotransferase > 2500 U/L (7-52); Aspartate Aminotransferase 6748 U/L (13-39)
[2024-11-17] MEDS ORDERED: CEFEPIME IV SCH (07:00)
[2024-11-17] MEDS ORDERED: CEFEPIME 2000MG 2,000 MG/20 ML SYR IV SCH (07:00)
--- NOTE | 2024-11-17 07:28 | CT Scan Report ---
EXAM: CT abd pelvis wo con CLINICAL HISTORY: Shock liver. Rule out intraabdominal pathology TECHNIQUE: Non-contrast CT of the abdomen and pelvis was performed, with the following protocol: axial images, and reconstructed coronal and sagittal images. No intravenous contrast was administered. One of the following dose reduction techniques was utilized for this exam: Automated exposure control, adjustment of the mA and/or kV according to patient size, and use of iterative reconstruction. CTDI: 55.88 mGy. DLP: 2238.24 mGy.cm COMPARISON: Comparison is made with prior CT dated 07/18/2022. FINDINGS: Abdomen: Liver: Normal in size, shape, and density. No focal lesions, cysts, or masses were identified. Gallbladder and Biliary System: The gallbladder is normal in size and shape. No wall thickening, pericholecystic fluid, or gallstones were identified. Pancreas: Pancreatic head, body, and tail are visualized and show fatty atrophy. No pancreatic masses or calcifications were noted. Spleen: Normal in size, shape, and density. No splenic lesions or masses were identified. Kidneys and Adrenal Glands: Multiple cortical cysts in bilateral kidneys largest 7.4 cm on the right and 2.2 cm on the left. Both kidneys are normal in size, shape, and position. Cortical thickness is within normal limits. No renal calculi or hydronephrosis. Well-defined hypodense lesion of 2.0 x 1.8 cm and HU -15 in right adrenal gland likely adenoma. Left adrenal gland is normal. Appendix: The appendix is normal in size without riana appendiceal fat stranding and without an appendicolith. No evidence of appendiceal abscess or perforation. Pelvis: Urinary Bladder: Empty. Can's catheter in situ. Uterus and ovaries: Not well visualized. Vagina: Normal in contour and wall thickness. Cervix: No evidence of mass or abnormal thickening. Peritoneal and Retroperitoneal Structures: No free fluid or abnormal fluid collections were identified within the abdomen or pelvis. No lymphadenopathy was noted. Atherosclerotic wall calcifications in the abdominal aorta and its branches. Bowel: Metallic wire/tube in anal canal and rectum. The visualized bowel loops are normal in caliber and appearance. No evidence of bowel obstruction or wall thickening. Bones and Soft Tissues: Post-procedural changes in lower anterior abdominal wall. Internal fixation in lumbar spine and moderate spondylotic changes in the thoracolumbar spine. Bilateral total hip replacement prostheses. Pelvic bones and soft tissues are unremarkable. No fractures or abnormal masses were identified. Visualized thorax shows cardiomegaly and mild bilateral pleural effusion with underlying subsegmental atelectatic changes. IMPRESSION: 1. No evidence of acute intra-abdominal pathology. 2. Multiple cortical cysts in bilateral kidneys largest 7.4 cm on the right and 2.2 cm on the left. 3. Well-defined hypodense lesion of 2.0 x 1.8 cm and HU -15 in right adrenal gland likely adenoma. 4. Visualized thorax shows cardiomegaly and mild bilateral pleural effusion with underlying subsegmental atelectatic changes. 5. No interval changes. Clinical correlation is recommended. Electronically signed by Aliya Alaniz 11-17-2024 07:28 AM
--- NOTE | 2024-11-17 07:34 | CT Scan Report ---
EXAM: CT chest diagnostic wo con CLINICAL HISTORY: pneumonia TECHNIQUE: Contiguous axial CT images of the chest were acquired without administration of intravenous contrast. Coronal and sagittal reconstructions were obtained. One of the following dose reduction techniques were utilized for this exam: Automated exposure control, adjustment of the mA and/or kV according to patient size, use of iterative reconstruction. CTDI: 308.09 mGy. DLP: 2238.24 mGy.cm COMPARISON: Prior CT dated 07/03/2019 for comparison. FINDINGS: Lungs: Multiple areas of ground glass opacities and atelectatic bands scattered in bilateral lungs. Mild bilateral pleural effusion with underlying subsegmental atelectasis. Mediastinum: Cardiomegaly. Coronary artery disease and stents. Atherosclerotic changes in aorta and its branches. Left central venous line. The mediastinum is normal in size and contour. No mediastinal mass or abnormal lymphadenopathy. Hilar Structures: The hilar structures appear normal without enlargement or abnormality. Left-sided CVL with its tip at the SVC. Trachea and Main Bronchi: The trachea and main bronchi are patent without evidence of obstruction or abnormality. Chest Wall: Few calcified densities in the left breast. The chest wall is unremarkable with no evidence of soft tissue or bony abnormalities. Bones: Spondylotic changes in the thoracic spine. Visualized osseous structures are normal, no evidence of fracture or lytic/sclerotic lesions. IMPRESSION: 1. Multiple areas of ground glass opacities and atelectatic bands scattered in bilateral lungs. Findings are likely infective vs pulmonary edema. Findings are worsening since the prior study. 2. Cardiomegaly. 3. Mild bilateral pleural effusion with underlying subsegmental atelectasis (mildly increased since the prior study). Electronically signed by Aliya Alaniz 11-17-2024 07:34 AM
[2024-11-17 07:42] LABS: A calco-baum cmplx NotReported Not Detected (NotDetected); Bact fragilis Not Reported Not Detected (NotDetected); Blood Culture Id Panel See PCR Comment (NotDetected); C auris Not Reported Not Detected (NotDetected); Calbicans Not Reported Not Detected (NotDetected); Candida glabrata Not Reported Not Detected (NotDetected); Candida krusei Not Reported Not Detected (NotDetected); Cneoformans/gatti Not Reported Not Detected (NotDetected); Cparapsilosis Not Reported Not Detected (NotDetected); E cloacae compx Not Reported Not Detected (NotDetected); Efaecalis Not Reported Not Detected (NotDetected); Efaecium Not Reported Not Detected (NotDetected); Enterobacterales Not Reported Not Detected (NotDetected); Escherichia coli Not Reported Not Detected (NotDetected); H influenzae Not Reported Not Detected (NotDetected); K aerogenes Not Reported Not Detected (NotDetected); Koxytoca Not Reported Not Detected (NotDetected); Kpneumoniae grp Not Reported Not Detected (NotDetected); Lmonocyt Not Reported Not Detected (NotDetected); N meningitidis Not Reported Not Detected (NotDetected); P aeruginosa Not Reported Not Detected (NotDetected); Proteus spp Not Reported Not Detected (NotDetected); Salmonella spp Not Reported Not Detected (NotDetected); Staph lugdunensis Not Reported Not Detected (NotDetected); Staph spp. Not Reported DETECTED (NotDetected); Staphaureus Not Reported Not Detected (NotDetected); Staphepi Not Reported DETECTED (NotDetected); Staphylococcus epidermidis DETECTED (NotDetected); Staphylococcus spp. DETECTED (NotDetected); Stenmaltophilia Not Reported Not Detected (NotDetected); Strep agal(GrpB) Not Reported Not Detected (NotDetected); Strep pneum Not Reported Not Detected (NotDetected); Strep pyog (GrpA) Not Reported Not Detected (NotDetected); Strep spp Not Reported Not Detected (NotDetected)
--- NOTE | 2024-11-17 07:48 | Critical Care Progress Note ---
Date of Service November 17, 2024 Assessment & Plan (1) Influenza: (2) Atrial fibrillation with rapid ventricular response: (3) Acute kidney injury: (4) Cystitis: (5) Septic shock: (6) Lactic acidosis: Plan Reason Critically Ill: 79YOF with a history of CAD s/p PCI RCA and LAD (2020), ischemic cardiomyopathy (HFrEF 40-45%), tricuspid valve mass (fibroelastoma), chronic atrial fibrillation on Eliquis, hypertension, hyperlipidemia incontinence who presented to [facility] ED on 11/16/2024 due to complaints of fevers, chills, body aches, and dysuria for at least a few days. Admitted to the ICU for shock Neuro - [facility] ICU: Negative Cardiac - --Shock Multifactorial likely cardiac from A-fib RVR Sepsis from UTI as well as multifocal pneumonia also possibility BNP 499 Random cortisol 20 in the ED. Did get 100 mg of hydrocortisone Continue with vasopressor support to keep MAP greater than 65 -- A-flutter/fib with RVR Patient was cardioverted in the ED Continue with heparin drip Did get loading dose of amiodarone 150 mg, currently off amiodarone drip On beta-luis armando, Entresto as well as digoxin at home On Eliquis at home Respiratory - CT chest 11/17/2024 personally reviewed: Patchy opacities appreciated bilaterally in the upper as well as lower lobes Bronchiectasis appreciated bilateral lower lobes Small bilateral pleural effusion Cardiomegaly No significant mediastinal lymphadenopathy --Acute hypoxic respiratory failure Multifactorial. Acute exacerbation of systolic CHF Influenza A positive Questionable aspiration episode. Continue with O2 supplementation to keep oxygen saturation between 90-92% GI - -- Transaminitis Significant elevation of AST ALT as well as LVH Likely representing shock liver like picture Portal vein Doppler was negative for stenosis. Right upper quadrant ultrasound was negative for cholecystitis or biliary dilatation. Follow-up hepatitis panel Patient will be started on NAC protocol on 11/17/2024 RENAL/LYTES - -- KALEE ATN like picture likely from hypotensive episode Monitor BUN/creatinine Avoid nephrotoxic medications Strict ins and outs ENDO - -- ICU hyperglycemia protocol HEME - -- Normocytic anemia Monitor H&H ID - -- Probable UTI UA positive for bacteria and leukocyte esterase Continue with Rocephin -- Multifocal pulmonary opacities Nasal MRSA negative Influenza A positive on 11/03/2024, she is not a candidate for Tamiflu Procalcitonin negative QTc 488 on 11/16/2024 10:30 PM Difficult to rule out superimposed bacterial pneumonia, doxycycline for atypical coverage No indication for Vancomycin as MRSA negative. Follow-up blood culture and urine culturee --Prophylaxis VTE: Heparin drip GI: None Lines: Left IJ, left radial, peripherals Diet: N.p.o. Plan: In/out: +1.8 L, urine output 20 mL Patient did have significant elevation of AST ALT as well as LDH. This likely represents shock liver from the persistent hypotension that she had in the ED Follow-up hepatitis panel. I will start the patient on NAC protocol Patient did get a dose of hydrocortisone in the ED but her blood pressure is on the higher side. If the patient drops while she is off vasopressors then we will consider tapering dose of hydrocortisone oral steroid just keep her off of it. Patient's urine output unfortunately is not good. She is likely in ATN phase. Hopefully it will improve No acute indication for dialysis right now but I will change antibiotic to Rocephin I have personally spent 42 minutes of critical care time in the direct management of this patient. This is a life/limb threatening event. This includes time spent evaluating patient, direct bedside care, chart review, placing orders, interpretation of diagnostic studies, discussion with consultants, patient, and family members, as well as other required patient management activities. This time is exclusive of all separately billable procedures, and teaching time and separate from and in addition to any other critical care service time. Please note the above document was generated using voice recognition software. It may contain grammatical, syntax or spelling errors. Admission and Anticipated Discharge Date Admission Date: November 16, 2024 Subjective Patient seen and examined at bedside. No acute distress, no adverse events overnight Patient was on 0.05 Levophed at the time of examination Her MAP was in the mid 80s. It was discontinued She did have nonsustained V. tach earlier today. Did complain of some suprapubic tenderness. No unusual headache or blurry vision Has been afebrile Review of Systems 2 Review of Systems: All systems reviewed & are unremarkable except as noted in Subjective Physical Exam 2 Physical Exam: Constitutional: No acute distress HEENT: EOMI, PERRLA Respiratory system: Decreased air entry bilaterally, no wheeze, no rhonchi, positive crackles bilateral lower lobes CVS: S1-S2 positive, no murmurs or gallops Abdomen: Soft, nondistended, positive bowel sounds x4, positive suprapubic tenderness Extremities: +2 pulses bilaterally radialis/+1 bilateral dorsalis pedis, no cyanosis, minimal pitting edema bilateral lower extremity, positive cyanotic hue appreciated bilateral lower toes Neuro: Awake alert oriented x3 Psych: Normal mood and affect G/U: Positive Can Skin: no rashes, warm and dry Lymphatic: no cervical or axillary lymphadenopathy Results & Data Results & Data Vital Signs (Past 12 Hours) Vital Signs Temp Pulse Pulse Resp BP BP Pulse Ox 11/17/24 04:21 36.4 C L 58 L 18 100 11/17/24 04:03 36.4 C L 64 25 H 100 11/17/24 04:02 105/54 L 11/17/24 03:45 36.4 C L 58 L 25 H 100 11/17/24 03:39 36.4 C L 58 L 16 100 11/17/24 03:30 36.5 C 59 L 16 100 11/17/24 03:15 36.5 C 56 L 19 100 11/17/24 03:09 36.5 C 57 L 18 100 11/17/24 02:57 36.6 C 58 L 18 98 11/17/24 02:39 36.6 C 63 19 88 L 11/17/24 02:20 36.7 C 56 L 22 100 11/17/24 02:17 36.7 C 57 L 20 100 11/17/24 02:05 85/61 L 11/17/24 02:03 64/46 L 11/17/24 02:02 36.7 C 65 23 98 11/17/24 02:01 68/42 L 11/17/24 02:01 68/42 L 11/17/24 01:44 36.8 C 65 24 100 11/17/24 01:41 36.8 C 59 L 19 100 11/17/24 01:35 36.8 C 63 20 100 11/17/24 01:29 36.9 C 60 24 100 11/17/24 01:20 36.9 C 58 L 23 100 11/17/24 01:11 36.9 C 65 27 H 96 11/17/24 01:08 36.9 C 70 16 94 11/17/24 01:02 37.0 C 60 32 H 98 11/17/24 01:01 111/52 L 11/17/24 01:01 111/52 L 11/17/24 00:59 37.0 C 62 25 H 96 11/17/24 00:51 37.0 C 74 21 94 11/17/24 00:48 37.0 C 69 25 H 95 11/17/24 00:36 37.0 C 67 21 97 11/17/24 00:30 37.0 C 68 19 100 11/17/24 00:17 78 11/17/24 00:15 37.0 C 74 20 100 11/17/24 00:11 37.0 C 76 20 100 11/17/24 00:02 37.0 C 63 28 H 98 11/17/24 00:01 102/45 L 11/17/24 00:01 102/45 L 11/16/24 23:59 37.0 C 65 25 H 99 11/16/24 23:45 37.1 C 68 19 100 11/16/24 23:41 37.1 C 68 20 98 11/16/24 23:38 37.1 C 67 27 H 98 11/16/24 23:32 37.1 C 76 21 98 11/16/24 23:29 37.1 C 70 20 100 11/16/24 23:15 37.1 C 79 39 H 98 11/16/24 22:59 37.1 C 71 29 H 100 11/16/24 22:48 37.1 C 74 35 H 100 11/16/24 22:30 37.2 C 72 26 H 97 11/16/24 22:06 37.3 C 72 26 H 99 11/16/24 22:00 95/67 L 11/16/24 21:42 37.3 C 89 28 H 97 11/16/24 21:01 115/54 L 11/16/24 21:01 115/54 L 11/16/24 20:57 37.9 C H 85 26 H 99 11/16/24 20:48 37.9 C H 80 24 95 11/16/24 20:34 37.8 C H 85 24 110/59 L 97 11/16/24 20:34 11/16/24 20:21 94 H 33 H 99 11/16/24 20:15 99 H 22 99 11/16/24 20:12 94 H 35 H 98 11/16/24 20:11 37.8 C H 85 24 110/59 L 97 11/16/24 20:00 97 H 27 H 88 L 11/16/24 20:00 11/16/24 19:43 99 H 31 H 95 11/16/24 19:42 115/72 11/16/24 19:41 105/77 11/16/24 19:41 105/77 Pulse Ox O2 Del Method O2 Del Method O2 Flow Rate O2 Flow Rate FiO2 11/17/24 04:21 11/17/24 04:03 11/17/24 04:02 11/17/24 03:45 11/17/24 03:39 11/17/24 03:30 11/17/24 03:15 11/17/24 03:09 11/17/24 02:57 11/17/24 02:39 11/17/24 02:20 11/17/24 02:17 11/17/24 02:05 11/17/24 02:03 11/17/24 02:02 11/17/24 02:01 11/17/24 02:01 11/17/24 01:44 11/17/24 01:41 11/17/24 01:35 11/17/24 01:29 11/17/24 01:20 11/17/24 01:11 11/17/24 01:08 11/17/24 01:02 11/17/24 01:01 11/17/24 01:01 11/17/24 00:59 11/17/24 00:51 11/17/24 00:48 11/17/24 00:36 11/17/24 00:30 11/17/24 00:17 11/17/24 00:15 11/17/24 00:11 11/17/24 00:02 11/17/24 00:01 11/17/24 00:01 11/16/24 23:59 11/16/24 23:45 11/16/24 23:41 11/16/24 23:38 11/16/24 23:32 11/16/24 23:29 11/16/24 23:15 11/16/24 22:59 11/16/24 22:48 11/16/24 22:30 11/16/24 22:06 11/16/24 22:00 11/16/24 21:42 11/16/24 21:01 11/16/24 21:01 11/16/24 20:57 11/16/24 20:48 11/16/24 20:34 High Flow Nasal Cannula 50 65 11/16/24 20:34 97 High Flow Nasal Cannula 50 11/16/24 20:21 11/16/24 20:15 11/16/24 20:12 11/16/24 20:11 High Flow Nasal Cannula 50 65 11/16/24 20:00 11/16/24 20:00 Nasal Cannula 6 11/16/24 19:43 High Flow Nasal Cannula 50 85 11/16/24 19:42 11/16/24 19:41 11/16/24 19:41 Laboratory Results 11/17/24 04:13 11/17/24 04:13 Coding Level of Care Code 74839 CRITICAL CARE 1ST 30-74M Diagnoses Influenza J11.1 Atrial fibrillation with rapid ventricular response I48.91 Acute kidney injury N17.9 Cystitis N30.90 Septic shock A41.9; R65.21 Lactic acidosis E87.20
[2024-11-17 07:52] LABS: mecAC Resistant Gene DETECTED (NotDetected)
[2024-11-17 08:00] LABS: INR 1.8 (0.9-1.1)
[2024-11-17] MEDS: CEFEPIME 2000MG 2,000 MG/20 ML SYR IV SCH (08:00)
[2024-11-17] MEDS: INSULIN ASPART PER UNIT CHARGE SC SCH (08:01)
--- NOTE | 2024-11-17 08:19 | Ultrasound Report ---
US duplex portal hepatic veins CLINICAL HISTORY: Rule out budd chiari COMPARISON STUDY: CT of the abdomen and pelvis November 17, 2024. TECHNIQUE: Grayscale, color and duplex Doppler sonography of the major hepatic vessels was performed. FINDINGS: The middle, left and right hepatic veins are patent. The right, left and main portal veins are patent with appropriately directed flow. There is no perihepatic ascites. IMPRESSION: Patent major hepatic vessels. No sonographic evidence for Budd-Chiari. ACT 112: Negative or not required by law. Electronically signed by: Mohan Hutson M.D. 11/17/2024 8:18 AM
--- NOTE | 2024-11-17 08:23 | Ultrasound Report ---
US liver CLINICAL HISTORY: Shock liver, rule out biliary process COMPARISON STUDY: CT earlier today. FINDINGS: Pancreas is obscured. Liver has mild diffusely heterogeneous echotexture. Liver is otherwis e unremarkable measuring 14 cm. Common bile duct measures normal diameter of 4 mm. There is normal di rection of flow in the portal vein. Gallbladder is unremarkable with no gallstones or gallbladder wal l thickening. Large cyst again seen in the right upper kidney. No hydronephrosis of the right kidney. Right pleural effusion is incidentally seen. IMPRESSION: 1. Mild diffusely heterogeneous liver echotexture, likely mild fatty liver. Liver is otherwise unrema rkable. 2. No gallstones or evidence of acute cholecystitis. 3. No biliary dilatation seen. ACT 112: Negative or not required by law. Electronically signed by: Tucker Guerrero M.D. 11/17/2024 8:21 AM
[2024-11-17 09:06] LABS: Hep B Surface Ag with confirm Negative (Negative)
[2024-11-17] MEDS: DOXYCYCLINE HYCLATE 100 MG CAP PO SCH (09:09)
[2024-11-17 09:11] LABS: Hep C Ab Rflx HepCQuant RNA Negative (Negative)
--- NOTE | 2024-11-17 11:43 | Cardiology Consultation ---
Date of Consultation November 17, 2024 Assessment & Plan (1) Septic shock: (2) Cardiogenic shock: * Patient presents with multifactorial shock in the setting of influenza A with noted lactic acidosis. * Had been on norepinephrine overnight which has since been weaned. * Gram-positive cocci in clusters noted on 1 of 2 blood cultures obtained on presentation 11/16/2024 and patient is on coverage with Rocephin and doxycycline at present. * Chest ray x-ray consistent with pneumonia and CHF. (3) Acute exacerbation of CHF (congestive heart failure): * Transthoracic echocardiogram with noted mild left ventricular systolic dysfunction, LVEF 44% today, moderate to severe MR which is unchanged compared to previous echo, mild to moderate tricuspid regurgitation now noted with moderate pulmonary hypertension, pulmonary systolic pressure estimated to be in the 50s which is a new finding. This may be due to acute decompensation rather than true worsening of her valvular structure and function. * After BP improves further will mateo require diuretics. (4) Atrial fibrillation with rapid ventricular response: * Patient has a history of persistent atrial fibrillation, has been in atrial fibrillation on serial EKG tracings in the last 2 years. Usually rate controlled on oral metoprolol. Underwent emergent direct-current cardioversion last evening at 1859 but has since reverted back to atrial fibrillation with minimally elevated ventricular rates as of 9:21 AM on 11/17/2024. * Transaminitis noted with AST 6748 units/L, ALT > 2500 units/L this morning, likely shock liver from hypoperfusion, transient hypotension. Agree with holding additional treatment IV amiodarone. * Digoxin level was low on presentation. She received 2 doses of IV digoxin, 125 mcg, 250 mcg last evening, will proceed with another IV dose of 125 mcg x 1 now as electrolytes and kidney function permit. * Start back on low dose metoprolol tartrate 12.5 mg PO BID. * Eliquis on hold, favoring UF heparin infusion for now. (5) Influenza: * Late presentation. 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 Relatively unchanged on TTE today compared to prior BORIS performed in 2022 * Patient had med with CT surgery in 2022, opting for observation rather than intervention at that time. History of Present Illness Attending Physician: Dilip Scott MD History of Present Illness Ana Eckert Is a 79-year-old female seen in cardiology consultation per the request of Dr. Mahan for the evaluation of atrial fibrillation and hypotension. The patient is seen in the intensive care unit, room 108. She is awake and conversant. She tells me that she had been feeling ill for about a week. Symptoms included sore throat, cough, nasal congestion, and progressive shortness of breath. On arrival to the emergency department yesterday, she was tachycardic with atrial fibrillation, rapid ventricular response rates up to the 130s initially, and she was hypotensive with systolic blood pressures in the 90s. She tested positive for influenza A. Chest x-ray and follow-up CT of the chest have thus far revealed multiple areas of groundglass opacities scattered throughout the lungs consistent with infection versus pulmonary edema and small bilateral pleural effusions. Due to concerns of hypotension and tachycardia the patient underwent emergent direct-current cardioversion last evening in the emergency department at 1859 with conversion to sinus rhythm. Initially she received IV amiodarone but that was subsequently discontinued early this morning due to concerns of elevation in her liver function tests. She has since reverted from sinus rhythm back to atrial fibrillation at 9:21 AM, today 11/17/2024, recurrent ventricular rate between 100 to 110 bpm. Patient currently comfortable. She states she feels much better than when she came to the hospital. Other than atrial fibrillation, telemetry notable for a 7 beat run of nonsustained ventricular tachycardia, rate 150 bpm at 12:32 AM on 11/17/2024. Past Medical History: 1. Chronic coronary artery disease status post drug-eluting stents right coronary artery for acute thrombosis 2018, left anterior descending and diagonal 2020 2. Persistent atrial fibrillation 3. 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 5. HLD 6. Diabetes, type II 7. Moderate persistent asthma 8. CKD stage IIIa Allergies Allergy/AdvReac Type Severity Reaction Status Date / Time adhesive Allergy Unknown HEAVIER Verified 11/05/24 10:22 SURG TAPE-REDNESS SORE SKIN cat dander Allergy Unknown ITCHY Verified 11/05/24 10:22 NOSE, ITCHY EYES,RUNNY NOSE grass pollen-perennial rye, Allergy Unknown GRASS,MOLD-ITCHY Verified 11/05/24 10:22 standar EYES RUNNY NOSE latex Allergy Unknown CONTACT Verified 11/05/24 10:22 DERMATITIS nickel Allergy Unknown Rash Verified 11/05/24 10:22 tetanus toxoid, adsorbed Allergy Unknown SWELLING Verified 11/05/24 10:22 AT SITE KOLE Inhibitors AdvReac Unknown COUGH Verified 11/05/24 10:22 Home Medications Medication Instructions Recorded Confirmed Type acetaminophen 500 mg tablet 1,000 mg PO BID Pain 11/28/20 11/05/24 History apixaban 5 mg tablet (Eliquis) 5 mg PO BID #60 tabs 09/02/24 11/05/24 Rx aspirin 81 mg tablet,delayed 81 mg PO QAM #365 tabs 09/02/24 11/05/24 Rx release atorvastatin 40 mg tablet 80 mg (2 x 40 mg) PO QAM #30 tabs 09/02/24 11/05/24 Rx benzonatate 100 mg capsule 100 mg PO TID #20 caps 09/02/24 11/05/24 Rx digoxin 125 mcg (0.125 mg) tablet 0.125 mg PO MoWeFr@1600 #30 tabs 09/02/24 11/05/24 Rx (Digitek) guaifenesin 600 mg tablet, 600 mg PO Q12 #20 tabs 09/02/24 11/05/24 Rx extended release 12 hr (Mucinex) metoprolol succinate 50 mg 100 mg (2 x 50 mg) PO BID #60 tabs 09/02/24 11/05/24 Rx tablet,extended release 24 hr sacubitril 24 mg-valsartan 26 mg 1 tab PO BID #60 tabs 09/02/24 11/05/24 Rx tablet (Entresto) spironolactone 25 mg tablet 12.5 mg (1/2 x 25 mg) PO DAILY #30 09/02/24 11/05/24 Rx tabs benzonatate 100 mg capsule 100 mg PO TID PRN cough #20 caps 11/03/24 11/05/24 Rx Patient History Medical History History of mood disorder Acute dyspnea Encounter for pre-operative examination COVID-19 ruled out Meningioma CKD (chronic kidney disease) stage 3, GFR 30-59 ml/min Methylenetetrahydrofolate reductase (MTHFR) deficiency History of recent hospitalization [facility], [place] 08/20-08/22/23 for ongoing SOB and afib with RVR (post COVID). HR improved with digoxin and BB. Repeat ECHO showed (again) twicuspid valve mass; scheduled for BORIS 09/24/23 COVID-19 tested positive 08/09/23 (had acute visit with PCP); tx with paxlovid; sx resolved as of 09/19/23 Mitral valve regurgitation Mild per 08/2023 echo Verbalizes suicidal thoughts Depression with suicidal ideation Pt reports she feels safe with herself and has good support system. Hypothyroidism Urinary tract infection March 2020 > resolved History of cardioversion approx 2 yrs ago; follows with for persitent Afib Hx of breast cancer left; s/p lumpectomy Anxiety Kidney stones passed on own History of DVT (deep vein thrombosis) ~1999> left leg > unknown etiology Surgical History History of tooth extraction Hx of eye surgery scar tissue removed bilat History of cataract surgery bilateral History of bilateral tubal ligation History of section x2 History of right knee joint replacement History of left knee replacement S/P bunionectomy bilateral History of colonoscopy S/P left inguinal hernia repair x2 Status post lumbar surgery fusion @ [facility] [place] S/P QUINCY-BSO Hx of lumpectomy Left lumpectomy with lymph node removal Status post coronary artery stent placement JAILENE to RCA 2018, JAILENE to LAD 2020 Family History Other Heart disease No family history of adverse response to anesthesia Social History Smoking Status: Never smoker Second Hand Exposure: Yes (parents and ); Do You Dip or Chew Tobacco: No; Hx Alcohol Use: No Hx Substance Use: No Preferred Language: B[place]an Communication Ability: Effective Cobbler Upper Required: No Beliefs That Will Affect Care: None marital status: / Current Living Situation: Family Current Living Situation Comment: son and daughter in law Feels Safe at Home: Yes Safety Concerns: Feels Safe At This Time Assistive Devices: Cane and Walker Review of Systems Review of Systems: All systems reviewed & are unremarkable except as noted in HPI & below Physical Exam Physical Exam: General: Ill in appearance, no acute distress Eyes: conjunctiva are pink and non-injected, sclera clear Neck: normal jugular venous pulse, no hepatojugular reflux Chest: normal shape and normal respiratory effort Lungs: clear to auscultation and percussion Cardiac Exam: -Irregular rhythm, 2/6 systolic murmur Abdomen: abdomen soft, non-tender, no abnormal masses and no hepatosplenomegaly Musculoskeletal: no gait disturbance, no weakness Extremities: no edema and no cyanosis Neuro:awake, conversant, follows commands, no focal motor deficits Results & Data Vital Signs (Past 12 Hours) Vital Signs Temp Pulse Resp BP Pulse Ox 11/17/24 04:21 36.4 C L 58 L 18 100 11/17/24 04:03 36.4 C L 64 25 H 100 11/17/24 04:02 105/54 L 11/17/24 03:45 36.4 C L 58 L 25 H 100 11/17/24 03:39 36.4 C L 58 L 16 100 11/17/24 03:30 36.5 C 59 L 16 100 11/17/24 03:15 36.5 C 56 L 19 100 11/17/24 03:09 36.5 C 57 L 18 100 11/17/24 02:57 36.6 C 58 L 18 98 11/17/24 02:39 36.6 C 63 19 88 L 11/17/24 02:20 36.7 C 56 L 22 100 11/17/24 02:17 36.7 C 57 L 20 100 11/17/24 02:05 85/61 L 11/17/24 02:03 64/46 L 11/17/24 02:02 36.7 C 65 23 98 11/17/24 02:01 68/42 L 11/17/24 02:01 68/42 L 11/17/24 01:44 36.8 C 65 24 100 11/17/24 01:41 36.8 C 59 L 19 100 11/17/24 01:35 36.8 C 63 20 100 11/17/24 01:29 36.9 C 60 24 100 11/17/24 01:20 36.9 C 58 L 23 100 11/17/24 01:11 36.9 C 65 27 H 96 11/17/24 01:08 36.9 C 70 16 94 11/17/24 01:02 37.0 C 60 32 H 98 11/17/24 01:01 111/52 L 11/17/24 01:01 111/52 L 11/17/24 00:59 37.0 C 62 25 H 96 11/17/24 00:51 37.0 C 74 21 94 11/17/24 00:48 37.0 C 69 25 H 95 11/17/24 00:36 37.0 C 67 21 97 11/17/24 00:30 37.0 C 68 19 100 11/17/24 00:17 78 11/17/24 00:15 37.0 C 74 20 100 11/17/24 00:11 37.0 C 76 20 100 11/17/24 00:02 37.0 C 63 28 H 98 11/17/24 00:01 102/45 L 11/17/24 00:01 102/45 L 11/16/24 23:59 37.0 C 65 25 H 99 11/16/24 23:45 37.1 C 68 19 100 11/16/24 23:41 37.1 C 68 20 98 11/16/24 23:38 37.1 C 67 27 H 98 11/16/24 23:32 37.1 C 76 21 98 Laboratory Results Cardiac Enzymes 11/16/24 11/16/24 11/17/24 Range/Units 14:06 19:24 04:13 AST 23 6429 H (13-39) U/L Lactate Dehydrogenase (86-244) U/L Troponin I High Sens 18.9 H (0-14) pg/ml B-Natriuretic Peptide 499 H (0-100) pg/ml 11/17/24 Range/Units 05:38 AST 6748 H (13-39) U/L Lactate Dehydrogenase 8784 H (86-244) U/L Troponin I High Sens (0-14) pg/ml B-Natriuretic Peptide (0-100) pg/ml Coagulation 11/16/24 11/17/24 Range/Units 14:06 07:13 PT 12.2 H 19.0 H (9.0-12.0) Seconds APTT 25 (21-31) Seconds B-Natriuretic Peptide 499 H (0-100) pg/ml CBC 11/16/24 11/17/24 Range/Units 14:06 04:13 WBC 14.01 H 19.87 H (4.8-10.8) K/ul RBC 5.58 H 4.84 (4.20-5.40) M/uL Hgb 15.9 13.9 (12.0-16.0) g/dl Hct 48.7 H 42.7 (37.0-47.0) % Plt Count 276 240 (130-400) K/uL Neut # (Auto) 10.89 H 18.13 H (1.40-6.50) K/uL Lymph # (Auto) 1.77 0.50 L (1.20-3.40) K/uL [place] # (Auto) 1.17 H 0.89 H (0.11-0.59) K/uL Eos # (Auto) 0.07 0.00 (0.00-0.50) K/uL Baso # (Auto) 0.03 0.05 (0.00-0.20) K/uL Comprehensive Metabolic Panel 11/16/24 11/16/24 11/17/24 Range/Units 14:06 20:38 04:13 Sodium 140 140 137 (136-145) mmol/L Potassium 4.2 4.4 4.7 (3.5-5.1) mmol/L Chloride 107 110 H 109 H (98-107) mmol/L Carbon Dioxide 25 20 L 36 H (21-32) mmol/L BUN 16 20 26 H (6-23) mg/dl Creatinine 0.88 1.32 H D 1.51 H (0.6-1.2) mg/dl Glucose 109 H 125 H 206 H (70-99(Fasting)) mg/dl Calcium 8.3 L 7.5 L 7.9 L (8.6-10.3) mg/dl Direct Bilirubin (0-0.2) mg/dl AST 23 6429 H (13-39) U/L ALT 31 > 2500 H (7-52) U/L Alkaline Phosphatase 86 105 H (34-104) U/L Total Protein 6.0 5.1 L (6.0-8.3) gm/dl Albumin 3.2 L 2.8 L (3.4-5.0) gm/dl 11/17/24 Range/Units 05:38 Sodium (136-145) mmol/L Potassium (3.5-5.1) mmol/L Chloride (98-107) mmol/L Carbon Dioxide (21-32) mmol/L BUN (6-23) mg/dl Creatinine (0.6-1.2) mg/dl Glucose (70-99(Fasting)) mg/dl Calcium (8.6-10.3) mg/dl Direct Bilirubin 0.9 H (0-0.2) mg/dl AST 6748 H (13-39) U/L ALT > 2500 H (7-52) U/L Alkaline Phosphatase 111 H (34-104) U/L Total Protein 5.0 L (6.0-8.3) gm/dl Albumin 2.8 L (3.4-5.0) gm/dl Intake and Output 11/16/24 11/17/24 11/17/24 22:59 06:59 14:59 Intake Total 631.943 / 1593.851 961.908 / 1593.851 848.617 / 848.617 Output Total 10 Balance 631.943 / 1573.851 941.908 / 1573.851 838.617 / 838.617 Intake: IV 631.943 / 1593.851 961.908 / 1593.851 248.617 / 248.617 Acetaminophen 1,000 mg In 100 100 / 100 ml @ 400 mls/hr IV NOW STA Rx#: [id number] Amiodarone / D5w 150 mg In 100 100 / 100 ml @ 600 mls/hr IV NOW STA Rx#: [id number] Amiodarone / D5w 360 mg In 200 224.493 / 224.493 ml @ 0.5 MG/MIN 16.667 mls/hr IV .Q12H [facility] Rx#:[id number] Azithromycin 500 mg In Sodium 255 / 255 Chloride 0.9% 250 ml @ 127.5 mls/hr IV NOW ONE Rx#:[id number] Heparin 07541 Unit/500 ml 25, 206.617 / 206.617 000 units In 500 ml @ 1,150 UNITS/HR 23 mls/hr IV .[id number] [facility] Rx#:[id number] Norepinephrine/D5w 4 mg In 250 42.00 / 42.00 ml @ 0.05 MCG/KG/MIN 15.506 mls /hr IV .Q16H8M [facility] Rx#:[id number] Phenylephrine/Nss 25 mg In 250 126.943 / 364.358 237.415 / 364.358 ml @ 0.5 MCG/KG/MIN 25.74 mls/ hr IV .Q9H43M [facility] Rx#:[id number] Sodium Chloride 0.9% 500 ml @ 500 / 500 500 mls/hr IV .Q1H [facility] Rx#: [id number] cefTRIAXone SODIUM 2,000 mg In 50 / 50 50 ml @ 100 mls/hr IV NOW [facility] Rx#:[id number] Oral 600 / 600 Output: Urine Amount (Catheter) Can/Indwelling Other: Weight 82.7 kg 82.7 kg Weight Measurement Method Built in [facility] Patient Weight 11/18/24 06:59 Weight 82.7 kg Diagnostic Findings EKG performed 11/16/2024 at 1259 and interpret independently: Atrial fibrillation with rapid ventricular response 137 bpm. Diffuse nonspecific T wave flattening noted. Compared to the previous tracing from 11/03/2024, the T wave flattening is chronic finding. Repeat tracing 11/16/2024 at 2233: Sinus rhythm at 72 bpm with premature atrial contractions. Normal ST segments. Corrected QT interval prolonged at 488 ms Medications Administered Transthoracic echocardiogram performed 11/09/2024 and interpret independently: The study is technically adequate for the evaluation of the referral indication. Sinus rhythm was present during echocardiogram study. Left ventricular systolic function is mildly reduced. There is mild global hypokinesis of the left ventricle. The calculated biplane left ventricular ejection fraction=44% The right ventricle is normal in size and function. The left atrium is severely dilated. The right atrium is mildly dilated. Mild aortic regurgitation. There is moderate to severe mitral regurgitation. There is mild to moderate tricuspid regurgitation. Moderate pulmonary hypertension is present. The pulmonary systolic pressure is estimated to be 55 mm Hg. There is a 1.2 cm x 1 cm spherical mass attached to basilar portion of the septal tricuspid valve leaflet. Compared to the previous study dated 08/29/2024, the tricuspid valve mass is relatively unchanged. The left ventricular ejection fraction is relatively unchanged. Ongoing moderate to severe mitral regurgitation is present. Mild to moderate tricuspid regurgitation none noted with moderate pulmonary h ypertension.
[2024-11-17] MEDS: METOPROLOL TARTRATE 25 MG TAB PO SCH (11:49)
--- NOTE | 2024-11-17 12:26 | Electrocardiogram Report ---
Test Reason : Blood Pressure : */* mmHG Vent. Rate : 137 BPM Atrial Rate : * BPM P-R Int : * ms QRS Dur : 66 ms QT Int : 312 ms P-R-T Axes : * 35 55 degrees QTcB Int : 471 ms Atrial fibrillation with rapid ventricular response with premature ventricular or aberrantly conducte d complexes Nonspecific ST and T wave abnormality Abnormal ECG When compared with ECG of 03-Nov-2024 13:56, No significant change was found Confirmed by Neo Lemus ([id number]) on 11/17/2024 12:26:16 PM Referred By: REFERRED SELF Confirmed By: Neo Lemus
[2024-11-17] MEDS: DIGOXIN 0.125 MG TAB PO SCH (12:29)
[2024-11-17 12:38] LABS: Creatinine Urine Random 84.7 mg/dl; Potassium Random Urine 55.9 mmol/L
--- NOTE | 2024-11-17 12:42 | Electrocardiogram Report ---
Test Reason : Blood Pressure : */* mmHG Vent. Rate : 141 BPM Atrial Rate : * BPM P-R Int : * ms QRS Dur : 76 ms QT Int : 310 ms P-R-T Axes : * 82 -2 degrees QTcB Int : 474 ms Atrial fibrillation with rapid ventricular response Nonspecific T wave abnormality Abnormal ECG When compared with ECG of 16-Nov-2024 12:59, (unconfirmed) T wave inversion no longer evident in Lateral leads Confirmed by Neo Lemus ([id number]) on 11/17/2024 12:42:13 PM Referred By: REFERRED SELF Confirmed By: Neo Lemus
--- NOTE | 2024-11-17 12:42 | Electrocardiogram Report ---
Test Reason : Blood Pressure : */* mmHG Vent. Rate : 101 BPM Atrial Rate : 101 BPM P-R Int : 166 ms QRS Dur : 68 ms QT Int : 356 ms P-R-T Axes : 62 70 63 degrees QTcB Int : 461 ms Sinus tachycardia with Premature supraventricular complexes Low voltage QRS Poor R wave progression, consider anterior TX vs. lead placement vs. LVH Abnormal ECG When compared with ECG of 16-Nov-2024 18:44, (unconfirmed) Sinus rhythm has replaced Atrial fibrillation Confirmed by Neo Lemus ([id number]) on 11/17/2024 12:42:49 PM Referred By: REFERRED SELF Confirmed By: Neo Lemus
--- NOTE | 2024-11-17 12:49 | Electrocardiogram Report ---
Test Reason : Blood Pressure : */* mmHG Vent. Rate : 72 BPM Atrial Rate : 72 BPM P-R Int : 162 ms QRS Dur : 78 ms QT Int : 446 ms P-R-T Axes : 37 37 61 degrees QTcB Int : 488 ms Sinus rhythm with Premature atrial complexes Low voltage QRS Nonspecific ST abnormality QTcB >= 480 msec Abnormal ECG When compared with ECG of 16-Nov-2024 19:05, (unconfirmed) Criteria for Septal infarct are no longer Present Confirmed by Neo Lemus ([id number]) on 11/17/2024 12:48:42 PM Referred By: REFERRED SELF Confirmed By: Neo Lemus
[2024-11-17] MEDS: ACETYLCYSTEINE IV ONE (14:50)
[2024-11-17] MEDS: cefTRIAXone SODIUM 2,000 MG/50 ML BAG IV SCH (14:50)
[2024-11-17] MEDS: DEXTROSE 5% IV ONE (14:50)
--- NOTE | 2024-11-17 14:59 | Hospitalist Progress Note ---
Date of Service November 17, 2024 Assessment & Plan (1) Cardiogenic shock: Plan: 2nd to rapid a.fib in the setting of fluA infection & severe sepsis/septic shock shock improved - off pressors as of this am holding diuretics holding Entresto resuming metoprolol BID at a very low dose as tolerated (2) Septic shock: Plan: source - pneumonia in the setting of fluA infection remains on rocephin & doxy to cover for bacterial superinfection follow all cultures (3) Influenza A: Plan: droplet precautions likely outside the window for Tamiflu to provide benefit thus holding such cont IV abx for probable bacterial superinfection (4) Acute on chronic heart failure with preserved ejection fraction: Plan: holding diuretics until BPs are consistently stable, KALEE has improved, etc. appreciate cardiology assistance (5) Atrial fibrillation with rapid ventricular response: Plan: s/p emergent cardioversion yesterday for rapid a.fib in the setting of shock then started on amiodarone IV however, with shock liver, the amiodarone has been stopped echo today - EF 44% low-dose meto tartate resumed today at 12.5mg BID cont IV heparin holding DOAC (6) Pneumonia: Plan: either 2nd to fluA infection and/or bacterial superinfection cont ceftriaxone cont doxycycline (azithromycin stopped) follow blood cx's (7) Lactic acidosis: Plan: 2nd to shock - resolved (8) Sepsis: Plan: suspected source - lung (9) Coronary artery disease: Plan: s/p JAILENE to RCA 2018, JAILENE to LAD 2020 asa, statin, etc on hold cont metoprolol BID (10) Acute respiratory failure with hypoxia: Plan: 2nd to fluA infection +/- bacterial superinfection of lungs +/- pulm edema (11) Shock liver: Plan: severe transaminitis in the setting of shock INR noted to be 1.8 repeat LFTs am repeat INR am avoid agents toxic to the liver including statins, amiodarone, etc. Dr Raya added NAC protocol Plan VTE Prophylaxis - IV heparin appreciate ICU assistance appreciate cardiology assistance Admission and Anticipated Discharge Date Admission Date: November 16, 2024 Subjective overnight events noted patient lying in bed sleeping but did awake easily to her name being called c/o feet feeling cold and numb but denies pain in his feet denies dyspnea denies chest pain denies abd pain per staff pressors weaned off this am unfortunately converted back to a.fib this am (from [facility]) Review of Systems Review of Systems: gen - poor appetite cv - no chest pain pulm - no dyspnea at rest GI - no nausea/emesis Physical Exam Physical Exam: gen - looks ill, NAD however neck - left IJ CVC clean; no obvious JVD mouth - MMM, no thrush heart - irregularly irregular, s1 s2 lungs - mildly decreased BS bases , no wheezes, no increased work of breathing abd - soft NT ND BS+ ext - feet are very cool to touch; cap refill b/l feet 4 sec; pulses b/l feet <1+; feet are cyanotic appearing especially on the right; popliteal pulses 2+ b/l; no edema Results & Data Results & Data Vital Signs (Past 12 Hours) Vital Signs Temp Pulse Resp BP Pulse Ox O2 Del Method O2 Del Method 11/17/24 13:42 36.0 C L 99 H 29 H 93 11/17/24 13:00 36.0 C L 104 H 18 94 11/17/24 12:33 36.0 C L 99 H 20 94 11/17/24 12:18 36.0 C L 89 20 95 11/17/24 12:04 36.2 C L 102 H 20 105/75 95 Room Air 11/17/24 11:49 100 H 11/17/24 11:36 Nasal Cannula 11/17/24 11:30 36.1 C L 102 H 22 99 11/17/24 11:03 36.0 C L 101 H 21 100 Nasal Cannula 11/17/24 10:12 36.0 C L 88 27 H 95 11/17/24 09:11 99/63 L 11/17/24 09:03 36.4 C L 75 16 100 11/17/24 08:03 36.3 C L 75 18 100 11/17/24 08:00 Nasal Cannula 11/17/24 08:00 Nasal Cannula 11/17/24 07:00 36.3 C L 62 23 97 11/17/24 04:21 36.4 C L 58 L 18 100 11/17/24 04:03 36.4 C L 64 25 H 100 11/17/24 04:02 105/54 L 11/17/24 03:45 36.4 C L 58 L 25 H 100 11/17/24 03:39 36.4 C L 58 L 16 100 11/17/24 03:30 36.5 C 59 L 16 100 11/17/24 03:15 36.5 C 56 L 19 100 11/17/24 03:09 36.5 C 57 L 18 100 O2 Flow Rate 11/17/24 13:42 11/17/24 13:00 11/17/24 12:33 11/17/24 12:18 11/17/24 12:04 11/17/24 11:49 11/17/24 11:36 3 11/17/24 11:30 11/17/24 11:03 3 11/17/24 10:12 11/17/24 09:11 11/17/24 09:03 11/17/24 08:03 11/17/24 08:00 3 11/17/24 08:00 11/17/24 07:00 11/17/24 04:21 11/17/24 04:03 11/17/24 04:02 11/17/24 03:45 11/17/24 03:39 11/17/24 03:30 11/17/24 03:15 11/17/24 03:09 Laboratory Results Laboratory Results - last 24 hr 11/16/24 11/16/24 11/16/24 14:06 15:03 16:14 WBC RBC Hgb POC Hgb Hct POC Hct MCV MCH MCHC RDW Std Deviation RDW Coeff of Stephan Plt Count MPV Immature Gran % (Auto) Neut % (Auto) Lymph % (Auto) [place] % (Auto) Eos % (Auto) Baso % (Auto) Neut # (Auto) Lymph # (Auto) [place] # (Auto) Eos # (Auto) Baso # (Auto) Immature Gran # (Auto) Polychromasia Echinocytes PT 12.2 H INR 1.1 APTT 25 PTT Ratio 0.9 Heparin Anti-Xa, Unfract 0.19 L Specimen Type Sample Site POC pH POC pCO2 POC pO2 POC HCO3 POC Total CO2 POC Base Excess O2 Sat Pulse Oximetry ABG pH (Temp Correct) ABG pCO2 (Temp Corrct POC ABG pO2 at Pt Temp POC ABG O2 Sat Alex Test O2 Delivery Device POC Sodium Sodium POC Potassium Potassium Chloride Carbon Dioxide Anion Gap BUN Creatinine Est Cr Clr Drug Dosing eGFR BUN/Creatinine Ratio Glucose POC Glucose Lactate 2.0 Calcium Phosphorus Magnesium Total Bilirubin Direct Bilirubin AST ALT Alkaline Phosphatase Lactate Dehydrogenase Total Creatine Kinase Troponin I High Sens B-Natriuretic Peptide 499 H Total Protein Albumin Globulin Albumin/Globulin Ratio Procalcitonin 0.10 TSH Random Cortisol 20.14 Urine Osmolality Ur Random Creatinine Ur Random Sodium Ur Random Potassium Ur Random Chloride Nasal Screen MRSA (PCR) Digoxin Salicylates Adenovirus (PCR) B. pertussis DNA (PCR) B.parapertussis DNA PCR C. pneumoniae DNA (PCR) Coronavirus OC43 (PCR) Coronavirus HKU1 (PCR) Coronavirus 229E (PCR) SARS-CoV-2 (PCR) Coronavirus NL63 (PCR) Hepatitis A IgM Ab Hep Bs Antigen Hep B Core IgM Ab Hepatitis C Antibody Human Metapneumovir PCR Influ A Subtyping (PCR) Influenza A Untype (PCR) Influenza Type B (PCR) M. pneumoniae (PCR) Parainfluenza 1 (PCR) Parainfluenza 2 (PCR) Parainfluenza 3 (PCR) Parainfluenza 4 (PCR) RSV (PCR) Entero/Rhino (PCR) Staphylococcus sp PCR DETECTED A mecA/C-Methicil Resis Gene DETECTED A Staph epidermidis (PCR) DETECTED A Bld Cult ID Panel PCR See PCR Comment 11/16/24 11/16/24 11/16/24 17:38 18:17 18:34 WBC RBC Hgb POC Hgb Hct POC Hct MCV MCH MCHC RDW Std Deviation RDW Coeff of Stephan Plt Count MPV Immature Gran % (Auto) Neut % (Auto) Lymph % (Auto) [place] % (Auto) Eos % (Auto) Baso % (Auto) Neut # (Auto) Lymph # (Auto) [place] # (Auto) Eos # (Auto) Baso # (Auto) Immature Gran # (Auto) Polychromasia Echinocytes PT INR APTT PTT Ratio Heparin Anti-Xa, Unfract Specimen Type Sample Site POC pH POC pCO2 POC pO2 POC HCO3 POC Total CO2 POC Base Excess O2 Sat Pulse Oximetry ABG pH (Temp Correct) ABG pCO2 (Temp Corrct POC ABG pO2 at Pt Temp POC ABG O2 Sat Alex Test O2 Delivery Device POC Sodium Sodium POC Potassium Potassium Chloride Carbon Dioxide Anion Gap BUN Creatinine Est Cr Clr Drug Dosing eGFR BUN/Creatinine Ratio Glucose POC Glucose 114 H Lactate 7.5 H* Calcium Phosphorus Magnesium Total Bilirubin Direct Bilirubin AST ALT Alkaline Phosphatase Lactate Dehydrogenase Total Creatine Kinase Troponin I High Sens B-Natriuretic Peptide Total Protein Albumin Globulin Albumin/Globulin Ratio Procalcitonin TSH Random Cortisol Urine Osmolality Ur Random Creatinine Ur Random Sodium Ur Random Potassium Ur Random Chloride Nasal Screen MRSA (PCR) Digoxin Salicylates Adenovirus (PCR) Not Detected B. pertussis DNA (PCR) Not Detected B.parapertussis DNA PCR Not Detected C. pneumoniae DNA (PCR) Not Detected Coronavirus OC43 (PCR) Not Detected Coronavirus HKU1 (PCR) Not Detected Coronavirus 229E (PCR) Not Detected SARS-CoV-2 (PCR) Not Detected Coronavirus NL63 (PCR) Not Detected Hepatitis A IgM Ab Hep Bs Antigen Hep B Core IgM Ab Hepatitis C Antibody Human Metapneumovir PCR Not Detected Influ A Subtyping (PCR) Pending Influenza A Untype (PCR) DETECTED A Influenza Type B (PCR) Not Detected M. pneumoniae (PCR) Not Detected Parainfluenza 1 (PCR) Not Detected Parainfluenza 2 (PCR) Not Detected Parainfluenza 3 (PCR) Not Detected Parainfluenza 4 (PCR) Not Detected RSV (PCR) Not Detected Entero/Rhino (PCR) Not Detected Staphylococcus sp PCR mecA/C-Methicil Resis Gene Staph epidermidis (PCR) Bld Cult ID Panel PCR 11/16/24 11/16/24 11/16/24 19:24 19:44 20:38 WBC RBC Hgb POC Hgb 16.0 Hct POC Hct 47 MCV MCH MCHC RDW Std Deviation RDW Coeff of Stephan Plt Count MPV Immature Gran % (Auto) Neut % (Auto) Lymph % (Auto) [place] % (Auto) Eos % (Auto) Baso % (Auto) Neut # (Auto) Lymph # (Auto) [place] # (Auto) Eos # (Auto) Baso # (Auto) Immature Gran # (Auto) Polychromasia Echinocytes PT INR APTT PTT Ratio Heparin Anti-Xa, Unfract Specimen Type Sample Site POC pH 7.39 POC pCO2 18 L POC pO2 193 H POC HCO3 11 L POC Total CO2 12 L POC Base Excess -14.0 L O2 Sat Pulse Oximetry ABG pH (Temp Correct) ABG pCO2 (Temp Corrct POC ABG pO2 at Pt Temp POC ABG O2 Sat 100.0 H Alex Test O2 Delivery Device POC Sodium 135 Sodium 140 POC Potassium 5.5 H Potassium 4.4 Chloride 110 H Carbon Dioxide 20 L Anion Gap 10 BUN 20 Creatinine 1.32 H D Est Cr Clr Drug Dosing 34.2 eGFR 41.33 BUN/Creatinine Ratio 15.2 Glucose 125 H POC Glucose Lactate 4.9 H* Calcium 7.5 L Phosphorus 7.2 H Magnesium 2.2 Total Bilirubin Direct Bilirubin AST ALT Alkaline Phosphatase Lactate Dehydrogenase Total Creatine Kinase Troponin I High Sens 18.9 H B-Natriuretic Peptide Total Protein Albumin Globulin Albumin/Globulin Ratio Procalcitonin TSH Random Cortisol Urine Osmolality Ur Random Creatinine Ur Random Sodium Ur Random Potassium Ur Random Chloride Nasal Screen MRSA (PCR) Digoxin Salicylates Adenovirus (PCR) B. pertussis DNA (PCR) B.parapertussis DNA PCR C. pneumoniae DNA (PCR) Coronavirus OC43 (PCR) Coronavirus HKU1 (PCR) Coronavirus 229E (PCR) SARS-CoV-2 (PCR) Coronavirus NL63 (PCR) Hepatitis A IgM Ab Hep Bs Antigen Hep B Core IgM Ab Hepatitis C Antibody Human Metapneumovir PCR Influ A Subtyping (PCR) Influenza A Untype (PCR) Influenza Type B (PCR) M. pneumoniae (PCR) Parainfluenza 1 (PCR) Parainfluenza 2 (PCR) Parainfluenza 3 (PCR) Parainfluenza 4 (PCR) RSV (PCR) Entero/Rhino (PCR) Staphylococcus sp PCR mecA/C-Methicil Resis Gene Staph epidermidis (PCR) Bld Cult ID Panel PCR 11/16/24 11/16/24 11/16/24 22:17 22:21 Unknown WBC RBC Hgb POC Hgb Hct POC Hct MCV MCH MCHC RDW Std Deviation RDW Coeff of Stephan Plt Count MPV Immature Gran % (Auto) Neut % (Auto) Lymph % (Auto) [place] % (Auto) Eos % (Auto) Baso % (Auto) Neut # (Auto) Lymph # (Auto) [place] # (Auto) Eos # (Auto) Baso # (Auto) Immature Gran # (Auto) Polychromasia Echinocytes PT INR APTT PTT Ratio Heparin Anti-Xa, Unfract Specimen Type Sample Site POC pH POC pCO2 POC pO2 POC HCO3 POC Total CO2 POC Base Excess O2 Sat Pulse Oximetry ABG pH (Temp Correct) ABG pCO2 (Temp Corrct POC ABG pO2 at Pt Temp POC ABG O2 Sat Alex Test O2 Delivery Device POC Sodium Sodium POC Potassium Potassium Chloride Carbon Dioxide Anion Gap BUN Creatinine Est Cr Clr Drug Dosing eGFR BUN/Creatinine Ratio Glucose POC Glucose Lactate 4.3 H* Calcium Phosphorus Magnesium Total Bilirubin Direct Bilirubin AST ALT Alkaline Phosphatase Lactate Dehydrogenase Total Creatine Kinase Troponin I High Sens B-Natriuretic Peptide Total Protein Albumin Globulin Albumin/Globulin Ratio Procalcitonin TSH Random Cortisol Urine Osmolality Ur Random Creatinine Ur Random Sodium Ur Random Potassium Ur Random Chloride Nasal Screen MRSA (PCR) Negative Digoxin < 0.3 L Salicylates Adenovirus (PCR) B. pertussis DNA (PCR) B.parapertussis DNA PCR C. pneumoniae DNA (PCR) Coronavirus OC43 (PCR) Coronavirus HKU1 (PCR) Coronavirus 229E (PCR) SARS-CoV-2 (PCR) Coronavirus NL63 (PCR) Hepatitis A IgM Ab Hep Bs Antigen Hep B Core IgM Ab Hepatitis C Antibody Human Metapneumovir PCR Influ A Subtyping (PCR) Influenza A Untype (PCR) Influenza Type B (PCR) M. pneumoniae (PCR) Parainfluenza 1 (PCR) Parainfluenza 2 (PCR) Parainfluenza 3 (PCR) Parainfluenza 4 (PCR) RSV (PCR) Entero/Rhino (PCR) Staphylococcus sp PCR mecA/C-Methicil Resis Gene Staph epidermidis (PCR) Bld Cult ID Panel PCR 11/17/24 11/17/24 11/17/24 04:13 04:16 05:33 WBC 19.87 H RBC 4.84 Hgb 13.9 POC Hgb Hct 42.7 POC Hct MCV 88.2 MCH 28.7 MCHC 32.6 RDW Std Deviation 51.8 H RDW Coeff of Stephan 16.8 H Plt Count 240 MPV 11.8 Immature Gran % (Auto) 1.5 Neut % (Auto) 91.2 Lymph % (Auto) 2.5 [place] % (Auto) 4.5 Eos % (Auto) 0.0 Baso % (Auto) 0.3 Neut # (Auto) 18.13 H Lymph # (Auto) 0.50 L [place] # (Auto) 0.89 H Eos # (Auto) 0.00 Baso # (Auto) 0.05 Immature Gran # (Auto) 0.30 H Polychromasia 1+ Echinocytes 1+ PT INR APTT PTT Ratio Heparin Anti-Xa, Unfract 0.59 Specimen Type Sample Site POC pH POC pCO2 POC pO2 POC HCO3 POC Total CO2 POC Base Excess O2 Sat Pulse Oximetry ABG pH (Temp Correct) ABG pCO2 (Temp Corrct POC ABG pO2 at Pt Temp POC ABG O2 Sat Alex Test O2 Delivery Device POC Sodium Sodium 137 POC Potassium Potassium 4.7 Chloride 109 H Carbon Dioxide 36 H Anion Gap -8 L BUN 26 H Creatinine 1.51 H Est Cr Clr Drug Dosing 29.9 eGFR 35.17 BUN/Creatinine Ratio 17.2 Glucose 206 H POC Glucose 200 H Lactate 2.3 H* Calcium 7.9 L Phosphorus 5.8 H Magnesium 2.0 Total Bilirubin 1.7 H Direct Bilirubin AST 6429 H ALT > 2500 H Alkaline Phosphatase 105 H Lactate Dehydrogenase Total Creatine Kinase 95 Troponin I High Sens B-Natriuretic Peptide Total Protein 5.1 L Albumin 2.8 L Globulin 2.3 L Albumin/Globulin Ratio 1.2 Procalcitonin TSH 2.534 Random Cortisol Urine Osmolality Ur Random Creatinine Ur Random Sodium Ur Random Potassium Ur Random Chloride Nasal Screen MRSA (PCR) Digoxin Salicylates Adenovirus (PCR) B. pertussis DNA (PCR) B.parapertussis DNA PCR C. pneumoniae DNA (PCR) Coronavirus OC43 (PCR) Coronavirus HKU1 (PCR) Coronavirus 229E (PCR) SARS-CoV-2 (PCR) Coronavirus NL63 (PCR) Hepatitis A IgM Ab Hep Bs Antigen Hep B Core IgM Ab Hepatitis C Antibody Human Metapneumovir PCR Influ A Subtyping (PCR) Influenza A Untype (PCR) Influenza Type B (PCR) M. pneumoniae (PCR) Parainfluenza 1 (PCR) Parainfluenza 2 (PCR) Parainfluenza 3 (PCR) Parainfluenza 4 (PCR) RSV (PCR) Entero/Rhino (PCR) Staphylococcus sp PCR mecA/C-Methicil Resis Gene Staph epidermidis (PCR) Bld Cult ID Panel PCR 11/17/24 11/17/24 11/17/24 05:38 05:51 07:13 WBC RBC Hgb POC Hgb 13.9 Hct POC Hct 41 MCV MCH MCHC RDW Std Deviation RDW Coeff of Stephan Plt Count MPV Immature Gran % (Auto) Neut % (Auto) Lymph % (Auto) [place] % (Auto) Eos % (Auto) Baso % (Auto) Neut # (Auto) Lymph # (Auto) [place] # (Auto) Eos # (Auto) Baso # (Auto) Immature Gran # (Auto) Polychromasia Echinocytes PT 19.0 H INR 1.8 H APTT PTT Ratio Heparin Anti-Xa, Unfract Specimen Type Arterial Sample Site Art Line POC pH 7.38 POC pCO2 31 L POC pO2 95 POC HCO3 18 L POC Total CO2 19 L POC Base Excess -7.0 O2 Sat Pulse Oximetry 98 ABG pH (Temp Correct) 7.375 ABG pCO2 (Temp Corrct 31 L POC ABG pO2 at Pt Temp 95 POC ABG O2 Sat 97.0 H Alex Test NA O2 Delivery Device Cannula POC Sodium 137 Sodium POC Potassium 4.5 Potassium Chloride Carbon Dioxide Anion Gap BUN Creatinine Est Cr Clr Drug Dosing eGFR BUN/Creatinine Ratio Glucose POC Glucose Lactate Calcium Phosphorus Magnesium Total Bilirubin 1.7 H Direct Bilirubin 0.9 H AST 6748 H ALT > 2500 H Alkaline Phosphatase 111 H Lactate Dehydrogenase 8784 H Total Creatine Kinase Troponin I High Sens B-Natriuretic Peptide Total Protein 5.0 L Albumin 2.8 L Globulin Albumin/Globulin Ratio Procalcitonin TSH Random Cortisol Urine Osmolality Ur Random Creatinine Ur Random Sodium Ur Random Potassium Ur Random Chloride Nasal Screen MRSA (PCR) Digoxin Salicylates < 3.0 L Adenovirus (PCR) B. pertussis DNA (PCR) B.parapertussis DNA PCR C. pneumoniae DNA (PCR) Coronavirus OC43 (PCR) Coronavirus HKU1 (PCR) Coronavirus 229E (PCR) SARS-CoV-2 (PCR) Coronavirus NL63 (PCR) Hepatitis A IgM Ab Pending Hep Bs Antigen Negative Hep B Core IgM Ab Pending Hepatitis C Antibody Negative Human Metapneumovir PCR Influ A Subtyping (PCR) Influenza A Untype (PCR) Influenza Type B (PCR) M. pneumoniae (PCR) Parainfluenza 1 (PCR) Parainfluenza 2 (PCR) Parainfluenza 3 (PCR) Parainfluenza 4 (PCR) RSV (PCR) Entero/Rhino (PCR) Staphylococcus sp PCR mecA/C-Methicil Resis Gene Staph epidermidis (PCR) Bld Cult ID Panel PCR 11/17/24 11/17/24 11/17/24 07:19 11:20 12:00 WBC RBC Hgb POC Hgb Hct POC Hct MCV MCH MCHC RDW Std Deviation RDW Coeff of Stephan Plt Count MPV Immature Gran % (Auto) Neut % (Auto) Lymph % (Auto) [place] % (Auto) Eos % (Auto) Baso % (Auto) Neut # (Auto) Lymph # (Auto) [place] # (Auto) Eos # (Auto) Baso # (Auto) Immature Gran # (Auto) Polychromasia Echinocytes PT INR APTT PTT Ratio Heparin Anti-Xa, Unfract Specimen Type Sample Site POC pH POC pCO2 POC pO2 POC HCO3 POC Total CO2 POC Base Excess O2 Sat Pulse Oximetry ABG pH (Temp Correct) ABG pCO2 (Temp Corrct POC ABG pO2 at Pt Temp POC ABG O2 Sat Alex Test O2 Delivery Device POC Sodium Sodium POC Potassium Potassium Chloride Carbon Dioxide Anion Gap BUN Creatinine Est Cr Clr Drug Dosing eGFR BUN/Creatinine Ratio Glucose POC Glucose 153 H 123 H Lactate Calcium Phosphorus Magnesium Total Bilirubin Direct Bilirubin AST ALT Alkaline Phosphatase Lactate Dehydrogenase Total Creatine Kinase Troponin I High Sens B-Natriuretic Peptide Total Protein Albumin Globulin Albumin/Globulin Ratio Procalcitonin TSH Random Cortisol Urine Osmolality 267 L Ur Random Creatinine 84.7 Ur Random Sodium 23 Ur Random Potassium 55.9 Ur Random Chloride 15 Nasal Screen MRSA (PCR) Digoxin Salicylates Adenovirus (PCR) B. pertussis DNA (PCR) B.parapertussis DNA PCR C. pneumoniae DNA (PCR) Coronavirus OC43 (PCR) Coronavirus HKU1 (PCR) Coronavirus 229E (PCR) SARS-CoV-2 (PCR) Coronavirus NL63 (PCR) Hepatitis A IgM Ab Hep Bs Antigen Hep B Core IgM Ab Hepatitis C Antibody Human Metapneumovir PCR Influ A Subtyping (PCR) Influenza A Untype (PCR) Influenza Type B (PCR) M. pneumoniae (PCR) Parainfluenza 1 (PCR) Parainfluenza 2 (PCR) Parainfluenza 3 (PCR) Parainfluenza 4 (PCR) RSV (PCR) Entero/Rhino (PCR) Staphylococcus sp PCR mecA/C-Methicil Resis Gene Staph epidermidis (PCR) Bld Cult ID Panel PCR PG Care Time/CCT Total # of Minutes Spent Total Time Spent with Patient: Total time spent is greater than 50% in coordination of care (as documented) at patient's floor/unit and/or counseling patient: Coding Level of Care Code 74588 SUB INP/OBS CARE 1/25MIN Diagnoses Cardiogenic shock R57.0 Septic shock A41.9; R65.21 Influenza A J10.1 Acute on chronic heart failure with preserved ejection fraction I50.33 Atrial fibrillation with rapid ventricular response I48.91 Pneumonia J18.9 Lactic acidosis E87.20 Sepsis A41.9 Coronary artery disease I25.10 Acute respiratory failure with hypoxia J96.01 Shock liver K72.00
[2024-11-17] MEDS ORDERED: cefTRIAXone SODIUM 2,000 MG/50 ML BAG IV SCH (16:00)
[2024-11-17] MEDS: AcetylCYSTEINE 8,250 MG in DEXTROSE 5% 1,000 ML IV ONE (19:16)
[2024-11-18 04:54] LABS: Basophils # (auto) 0.03 K/uL (0.00-0.20); Basophils % (auto) 0.2 %; Eosinophils # (auto) 0.03 K/uL (0.00-0.50); Eosinophils % (auto) 0.2 %; Hematocrit (blood only) 39.7 % (37.0-47.0); Hemoglobin 13.3 g/dl (12.0-16.0); Immature Granulocytes # (auto) 0.11 K/uL (0.01-0.20); Immature Granulocytes % (auto) 0.7 %; Lymphocytes # (auto) 2.28 K/uL (1.20-3.40); Lymphocytes % (auto) 15.5 %; Mean Corpuscular Hgb Conc 33.5 g/dL (32.0-36.0); Mean Corpuscular Volume 86.5 fL (80.0-100.0); Monocytes # (auto) 0.71 K/uL (0.11-0.59); Monocytes % (auto) 4.8 %; Neutrophils # (auto) 11.57 K/uL (1.40-6.50); Neutrophils % (auto) 78.6 %; Platelet Count 151 K/uL (130-400); RDW Coefficient of Variation 16.6 % (11.5-14.5); RDW Standard Deviation 50.4 fL (36.4-46.3); Red Blood Count 4.59 M/uL (4.20-5.40); White Blood Count 14.73 K/ul (4.8-10.8)
[2024-11-18 05:31] LABS: Alanine Aminotransferase > 2500 U/L (7-52); Albumin Globulin Ratio 1.1 (0.9-2); Albumin Level 2.5 gm/dl (3.4-5.0); Alkaline Phosphatase 106 U/L (34-104); Anion Gap 9 (3-11); Aspartate Aminotransferase 3729 U/L (13-39); BUN Creatinine Ratio 20.7 (10-20); Bilirubin,Total 1.1 mg/dl (0.2-1.0); Blood Urea Nitrogen 30 mg/dl (6-23); Calcium 7.8 mg/dl (8.6-10.3); Carbon Dioxide 23 mmol/L (21-32); Chloride 107 mmol/L (98-107); Creatinine Clr Calc Pharmacy 32.3 ml/min; Globulin 2.2 gm/dl (2.5-4.0); Glucose 88 mg/dl (70-99(Fasting)); Magnesium 1.9 mg/dl (1.7-2.4); Phosphorus 3.5 mg/dl (2.5-4.9); Potassium 3.1 mmol/L (3.5-5.1); Sodium 139 mmol/L (136-145); Total Protein 4.7 gm/dl (6.0-8.3)
[2024-11-18 05:59] LABS: Fibrinogen 393 mg/dl (184-400); INR 1.9 (0.9-1.1); Partial Thromboplastin Ratio 3.5; Prothrombin Time 19.2 Seconds (9.0-12.0)
[2024-11-18] MEDS: ICU ELECTROLYTE REPLACEMENT PROTOCOL SCH (06:03)
[2024-11-18 06:08] LABS: ANTI-Xa, UFH(UnfractionatedHep 0.88 IU/ml (0.3-0.7); Partial Thromboplastin Time 95 Seconds (21-31)
[2024-11-18] MEDS: MAGNESIUM OXIDE 400 MG TAB PO SCH (06:23)
[2024-11-18] MEDS: POTASSIUM CHLORIDE CRTAB 20 MEQ TABCR PO SCH (06:23)
[2024-11-18] MEDS: DIGOXIN 0.125 MG TAB PO SCH (09:59)
[2024-11-18] MEDS: APIXABAN 5 MG TABLET PO SCH (10:32)
--- NOTE | 2024-11-18 14:31 | Critical Care Progress Note ---
Date of Service November 18, 2024 Assessment & Plan (1) Influenza: (2) Atrial fibrillation with rapid ventricular response: (3) Acute kidney injury: (4) Cystitis: (5) Septic shock: (6) Lactic acidosis: Plan Reason Critically Ill: 79YOF with a history of CAD s/p PCI RCA and LAD (2020), ischemic cardiomyopathy (HFrEF 40-45%), tricuspid valve mass (fibroelastoma), chronic atrial fibrillation on Eliquis, hypertension, hyperlipidemia incontinence who presented to [facility] ED on 11/16/2024 due to complaints of fevers, chills, body aches, and dysuria for at least a few days. Admitted to the ICU for shock Neuro - [facility] ICU: Negative Cardiac - -- S/p shock Multifactorial likely cardiac from A-fib RVR Sepsis from UTI as well as multifocal pneumonia also possibility BNP 499 Random cortisol 20 in the ED. Did get 100 mg of hydrocortisone --S/p A-flutter/fib with RVR Patient was cardioverted in the ED Did get loading dose of amiodarone 150 mg, currently off amiodarone drip On beta-luis armando, Entresto as well as digoxin at home On Eliquis at home Respiratory - CT chest 11/17/2024 personally reviewed: Patchy opacities appreciated bilaterally in the upper as well as lower lobes Bronchiectasis appreciated bilateral lower lobes Small bilateral pleural effusion Cardiomegaly No significant mediastinal lymphadenopathy --Acute hypoxic respiratory failure Multifactorial. Acute exacerbation of systolic CHF Influenza A positive Questionable aspiration episode. Continue with O2 supplementation to keep oxygen saturation between 90-92% GI - -- Transaminitis --> trending down Significant elevation of AST ALT as well as LVH Likely representing shock liver like picture Portal vein Doppler was negative for stenosis. Right upper quadrant ultrasound was negative for cholecystitis or biliary dilatation. Follow-up hepatitis panel Patient will be started on NAC protocol on 11/17/2024 RENAL/LYTES - -- KALEE --> improving ATN like picture likely from hypotensive episode Monitor BUN/creatinine Avoid nephrotoxic medications Strict ins and outs ENDO - -- ICU hyperglycemia protocol HEME - -- Normocytic anemia Monitor H&H ID - -- Probable UTI UA positive for bacteria and leukocyte esterase Continue with Rocephin -- Multifocal pulmonary opacities Nasal MRSA negative Influenza A positive on 11/03/2024, she is not a candidate for Tamiflu Procalcitonin negative QTc 488 on 11/16/2024 10:30 PM Difficult to rule out superimposed bacterial pneumonia, doxycycline for atypical coverage No indication for Vancomycin as MRSA negative. Follow-up blood culture and urine culturee --Prophylaxis VTE: Heparin drip GI: None Lines: Left IJ, left radial, peripherals Diet: N.p.o. Plan: In/out: + positive 869, urine output 1071 Patient is urine output has been picking up which is a good sign. Her LFTs are also trending down. Complete the NAC dose. Will discontinue heparin drip and resume patient's Eliquis from home. Complete course of Rocephin for 5 days for possible UTI Out of bed to chair. DC radial line as well as central line. Repeat blood cultures has been ordered for today. Hemodynamically stable to be downgrade to medical floor Case was discussed with primary team Please note the above document was generated using voice recognition software. It may contain grammatical, syntax or spelling errors.Any formal questions or concerns about the content, text or information contained within the body of this dictation should be directly addressed to the provider for clarification. Admission and Anticipated Discharge Date Admission Date: November 16, 2024 Subjective Patient seen and examined at bedside. No acute distress, no adverse events overnight Systolic blood pressure was in the 130s, heart rate in the mid 80s Denies any nausea vomiting Does complain of still mild abdominal discomfort in the suprapubic area. No nausea or vomiting, fair appetite Denies any headache or blurry vision Has been urinating well Review of Systems Review of Systems: All systems reviewed & are unremarkable except as noted in Subjective Physical Exam Physical Exam: Constitutional: No acute distress HEENT: EOMI, PERRLA Respiratory system: Decreased air entry bilaterally, no wheeze, no rhonchi, positive crackles bilateral lower lobes CVS: S1-S2 positive, no murmurs or gallops Abdomen: Soft, nondistended, positive bowel sounds x4, mild suprapubic tenderness Extremities: +2 pulses bilaterally radialis/+1 bilateral dorsalis pedis, no cyanosis, minimal pitting edema bilateral lower extremity Neuro: Awake alert oriented x3 Psych: Normal mood and affect G/U: Positive Can Skin: no rashes, warm and dry Lymphatic: no cervical or axillary lymphadenopathy Results & Data Results & Data Vital Signs (Past 12 Hours) Vital Signs Temp Pulse Resp BP Pulse Ox Pulse Ox Pulse Ox 11/18/24 12:09 96 H 19 91 11/18/24 11:41 93 11/18/24 11:03 88 21 97 11/18/24 10:09 93 H 25 H 11/18/24 10:04 107/77 11/18/24 09:59 78 11/18/24 09:54 88 24 93 11/18/24 09:03 85 25 H 97 11/18/24 08:21 88 26 H 96 11/18/24 08:00 96 11/18/24 08:00 11/18/24 08:00 146/67 H 11/18/24 07:42 90 22 94 11/18/24 07:29 101 H 11/18/24 07:26 36.5 C 11/18/24 07:00 87 15 94 11/18/24 05:03 90 14 93 11/18/24 04:42 89 14 95 11/18/24 04:03 91 H 14 97 11/18/24 04:00 119/86 11/18/24 04:00 119/86 11/18/24 03:45 87 15 98 11/18/24 03:09 92 H 16 93 11/18/24 02:30 88 13 94 O2 Del Method O2 Del Method O2 Flow Rate 11/18/24 12:09 Room Air 11/18/24 11:41 0 11/18/24 11:03 11/18/24 10:09 11/18/24 10:04 11/18/24 09:59 11/18/24 09:54 11/18/24 09:03 Room Air 11/18/24 08:21 11/18/24 08:00 Room Air 11/18/24 08:00 Room Air 11/18/24 08:00 11/18/24 07:42 11/18/24 07:29 11/18/24 07:26 11/18/24 07:00 Room Air 11/18/24 05:03 11/18/24 04:42 11/18/24 04:03 11/18/24 04:00 11/18/24 04:00 11/18/24 03:45 11/18/24 03:09 11/18/24 02:30 Coding Level of Care Code 12976 SUB INP/OBS CARE 350MIN Diagnoses Influenza J11.1 Atrial fibrillation with rapid ventricular response I48.91 Acute kidney injury N17.9 Cystitis N30.90 Septic shock A41.9; R65.21 Lactic acidosis E87.20
[2024-11-18 14:32] LABS: Hepatitis A Antibody IgM NON-REACTIVE (NON-REACTIVE); Hepatitis B Core Antibody IgM NON-REACTIVE (NON-REACTIVE)
--- NOTE | 2024-11-18 14:39 | Cardiology Progress Note ---
Date of Service November 18, 2024 Assessment & Plan (1) Influenza A: (2) Septic shock: (3) Cardiogenic shock: Plan: * Patient presents with multifactorial shock in the setting of influenza A with noted lactic acidosis. * Norepinephrine weaned off. * Gram-positive cocci in clusters noted on 1 of 2 blood cultures obtained on presentation 11/16/2024 and patient is on coverage with Rocephin and doxycycline at present. * Chest ray x-ray consistent with pneumonia and CHF. (4) Acute exacerbation of CHF (congestive heart failure): Plan: * Transthoracic echocardiogram with noted mild left ventricular systolic dysfunction, LVEF 44% today, moderate to severe MR which is unchanged compared to previous echo, mild to moderate tricuspid regurgitation now noted with moderate pulmonary hypertension, pulmonary systolic pressure estimated to be in the 50s which is a new finding. This may be due to acute decompensation rather than true worsening of her valvular structure and function. * Consider addition of IV diuretic in the a.m. 11/19/2024 (5) Atrial fibrillation with rapid ventricular response: Plan: * Persistent likely permanent atrial fibrillation with failed cardioversion 11/17/2024. * Rate controlled * Amiodarone discontinued due to transaminitis * Digoxin level was low on presentation. She received 2 doses of IV digoxin, 12 5 mcg, 250 mcg 11/16/2024, and additional 125 mcg 11/17/2024. * Continue digoxin 0.125 mg Saturday, Saturday, and Saturday only * Continue metoprolol tartrate 12.5 mg PO BID. * Eliquis restarted, IV heparin discontinued (6) Tricuspid valve mass: Plan: * Known mass adherent to the annular portion of the septal leaflet of the tricuspid valve. Relatively unchanged on TTE 11/17/2024 compared to prior BORIS performed in 2022 * Patient had med with CT surgery in 2022, opting for observation rather than intervention at that time. Admission and Anticipated Discharge Date Admission Date: November 16, 2024 Subjective 79-year-old female seen examined at the bedside. New IVs being placed under ultrasound guidance. Left IJ will be removed this afternoon. She is hemodynamically stable. No longer requiring pressor therapy. Telemetry feels atrial fibrillation with controlled ventricular response. Heart rate 80-98 bpm. Past Medical History: 1. Chronic coronary artery disease status post drug-eluting stents right coronary artery for acute thrombosis 2018, left anterior descending and diagonal 2020 2. Persistent atrial fibrillation 3. 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 5. HLD 6. Diabetes, type II 7. Moderate persistent asthma 8. CKD stage IIIa Review of Systems Review of Systems: All systems reviewed & are unremarkable except as noted in Subjective Physical Exam Constitutional: well developed and well nourished; no acute distress Respiratory: no respiratory distress, no labored breathing and no retractions Auscultation: lungs clear to auscultation bilaterally; no crackles, no rales, no rhonchi and no wheezes Cardiovascular: Rate/Rhythm: + irregularly irregular Heart Sounds: normal S1 and normal S2; no murmur Vessels: no JVD Extremities: no edema Gastrointestinal (Abdomen): Inspection/Auscultation: normal bowel sounds; abdomen not distended Percussion/Palpation: abdomen soft; abdomen nontender, no guarding and abdomen not rigid Neurologic: CN's II-XI intact bilaterally and moves all extremities Results & Data Vital Signs (Past 12 Hours) Vital Signs Temp Pulse Resp BP Pulse Ox Pulse Ox Pulse Ox 11/18/24 12:09 96 H 19 91 11/18/24 11:41 93 11/18/24 11:03 88 21 97 11/18/24 10:09 93 H 25 H 11/18/24 10:04 107/77 11/18/24 09:59 78 11/18/24 09:54 88 24 93 11/18/24 09:03 85 25 H 97 11/18/24 08:21 88 26 H 96 11/18/24 08:00 96 11/18/24 08:00 11/18/24 08:00 146/67 H 11/18/24 07:42 90 22 94 11/18/24 07:29 101 H 11/18/24 07:26 36.5 C 11/18/24 07:00 87 15 94 11/18/24 05:03 90 14 93 11/18/24 04:42 89 14 95 11/18/24 04:03 91 H 14 97 11/18/24 04:00 119/86 11/18/24 04:00 119/86 11/18/24 03:45 87 15 98 11/18/24 03:09 92 H 16 93 O2 Del Method O2 Del Method O2 Flow Rate 11/18/24 12:09 Room Air 11/18/24 11:41 0 11/18/24 11:03 11/18/24 10:09 11/18/24 10:04 11/18/24 09:59 11/18/24 09:54 11/18/24 09:03 Room Air 11/18/24 08:21 11/18/24 08:00 Room Air 11/18/24 08:00 Room Air 11/18/24 08:00 11/18/24 07:42 11/18/24 07:29 11/18/24 07:26 11/18/24 07:00 Room Air 11/18/24 05:03 11/18/24 04:42 11/18/24 04:03 11/18/24 04:00 11/18/24 04:00 11/18/24 03:45 11/18/24 03:09 Laboratory Results Cardiac Enzymes 11/18/24 Range/Units 04:25 AST 3729 H (13-39) U/L Coagulation 11/18/24 Range/Units 04:25 PT 19.2 H (9.0-12.0) Seconds APTT 95 H* (21-31) Seconds CBC 11/18/24 Range/Units 04:25 WBC 14.73 H (4.8-10.8) K/ul RBC 4.59 (4.20-5.40) M/uL Hgb 13.3 (12.0-16.0) g/dl Hct 39.7 (37.0-47.0) % Plt Count 151 (130-400) K/uL Neut # (Auto) 11.57 H (1.40-6.50) K/uL Lymph # (Auto) 2.28 (1.20-3.40) K/uL [place] # (Auto) 0.71 H (0.11-0.59) K/uL Eos # (Auto) 0.03 (0.00-0.50) K/uL Baso # (Auto) 0.03 (0.00-0.20) K/uL Comprehensive Metabolic Panel 11/18/24 Range/Units 04:25 Sodium 139 (136-145) mmol/L Potassium 3.1 L D (3.5-5.1) mmol/L Chloride 107 (98-107) mmol/L Carbon Dioxide 23 (21-32) mmol/L BUN 30 H (6-23) mg/dl Creatinine 1.45 H (0.6-1.2) mg/dl Glucose 88 (70-99(Fasting)) mg/dl Calcium 7.8 L (8.6-10.3) mg/dl AST 3729 H (13-39) U/L ALT > 2500 H (7-52) U/L Alkaline Phosphatase 106 H (34-104) U/L Total Protein 4.7 L (6.0-8.3) gm/dl Albumin 2.5 L (3.4-5.0) gm/dl Intake and Output 11/17/24 11/18/24 11/18/24 22:59 06:59 14:59 Intake Total 1090.867 / 2189.417 249.933 / 2189.417 1640.583 / 1640.583 Output Total 231 / 1071 800 / 1071 500 / 500 Balance 859.867 / 1118.417 -550.067 / 3262.079 0048.583 / 1140.583 Intake: IV 850.867 / 1349.417 249.933 / 1470.276 5967.583 / 1160.583 AcetylCYSTEINE 8,250 mg In 1041.25 / 1041.25 Dextrose 5% 1,000 ml @ 62.5 mls /hr IV ONE ONE Rx#:[id number] AcetylCYSTEINE 4,130 mg In 520.65 / 520.65 Dextrose 5% 500 ml @ 125 mls/hr IV ONE ONE Rx#:[id number] Heparin 14040 Unit/500 ml 25, 280.217 / 736.767 249.933 / 736.767 69.333 / 69.333 000 units In 500 ml @ 1,000 UNITS/HR 20 mls/hr IV .Q24H [facility] Rx#:[id number] cefTRIAXone SODIUM 2,000 mg In 50 / 50 50 / 50 50 ml @ 100 mls/hr IV Q24H [facility] Rx#:[id number] Oral 240 / 840 480 / 480 Output: Urine Amount (Catheter) 230 / 1070 800 / 1070 500 / 500 Can/Indwelling 230 / 1070 800 / 1070 500 / 500 # Bowel Movements Other: Weight 88.5 kg Weight Measurement Method Built in [facility]
--- NOTE | 2024-11-18 14:59 | Hospitalist Progress Note ---
Date of Service November 18, 2024 Assessment & Plan (1) Cardiogenic shock: Plan: 2nd to rapid a.fib in the setting of resolving fluA infection & severe sepsis/septic shock shock resolved - off pressors as of 11/17 holding diuretics holding Entresto resumed metoprolol BID resumed digoxin M/W/F (2) Septic shock: Plan: shock resolved source - pneumonia in the setting of fluA infection (initially tested + on 11/03/24) remains on rocephin & doxy to cover for bacterial superinfection 10/24 blood cx's from admission + these are likely contaminants obtaining repeat blood cx's today (3) Influenza A: Plan: initially tested + on 11/03/24 droplet precautions for now unless infection control states we can remove such outside the window for Tamiflu to provide benefit thus did not receive such cont IV abx for probable bacterial superinfection (4) Acute on chronic heart failure with preserved ejection fraction: Plan: holding diuretics until BPs are consistently stable, KALEE has improved, etc. appreciate cardiology assistance perhaps resume her diuretics tomorrow (5) Atrial fibrillation with rapid ventricular response: Plan: s/p emergent cardioversion hospital day #1 for rapid a.fib in the setting of shock then started on amiodarone IV however, with shock liver, the amiodarone was stopped echo this admission - EF 44% low-dose meto tartate resumed at 12.5mg BID resume Eliquis today stop heparin drip (6) Pneumonia: Plan: either 2nd to fluA infection and/or bacterial superinfection cont ceftriaxone cont doxycycline day #2 of each abx (7) Lactic acidosis: Plan: 2nd to shock - resolved (8) Sepsis: Plan: suspected source - lung (9) Coronary artery disease: Plan: s/p JAILENE to RCA 2018, JAILENE to LAD 2020 asa, statin, etc on hold cont metoprolol BID (10) Acute respiratory failure with hypoxia: Plan: 2nd to fluA infection +/- bacterial superinfection of lungs +/- pulm edema improved/resolved (11) Shock liver: Plan: severe transaminitis in the setting of shock INR noted to be 1.9 today repeat LFTs am repeat INR am avoid agents toxic to the liver including statins, amiodarone, etc. Dr Raya added NAC protocol and she completed such Plan VTE Prophylaxis - stop IV heparin; change to PO Eliquis BID appreciate ICU assistance appreciate cardiology assistance can move from tele to PCU today remove CVC updated pt's son by phone this evening Admission and Anticipated Discharge Date Admission Date: November 16, 2024 Subjective tele - remains in a.fib rates at rest are generally controlled patient feels more awake/alert today did work with therapy today tolerating clears mild cough mild dyspnea denies pain in any location last Bowel movement - 11/17 art line removed CVC to be removed Review of Systems Review of Systems: gen - weak; no fevers or chills cv - no chest pain pulm - no wheeze GI - no abd pain or N/V Physical Exam Physical Exam: gen - looks better today, NAD, comfortable neck - left IJ CVC clean; no obvious JVD mouth - MMM, no thrush heart - irregularly irregular, s1 s2, no murmur lungs - mildly decreased BS bases; scant rales bases; no increased work of breathing abd - soft NT ND BS+ ext - feet more warm today; pulses 2+ b/l feet; cap refill improved; no edema psych - a/o x 3 Results & Data Results & Data Vital Signs (Past 12 Hours) Vital Signs Temp Pulse Resp BP Pulse Ox Pulse Ox Pulse Ox 11/18/24 12:09 96 H 19 91 11/18/24 11:41 93 11/18/24 11:03 88 21 97 11/18/24 10:09 93 H 25 H 11/18/24 10:04 107/77 11/18/24 09:59 78 11/18/24 09:54 88 24 93 11/18/24 09:03 85 25 H 97 11/18/24 08:21 88 26 H 96 11/18/24 08:00 96 11/18/24 08:00 11/18/24 08:00 146/67 H 11/18/24 07:42 90 22 94 11/18/24 07:29 101 H 11/18/24 07:26 36.5 C 11/18/24 07:00 87 15 94 11/18/24 05:03 90 14 93 11/18/24 04:42 89 14 95 11/18/24 04:03 91 H 14 97 11/18/24 04:00 119/86 11/18/24 04:00 119/86 11/18/24 03:45 87 15 98 01/29/25 03:09 92 H 16 93 O2 Del Method O2 Del Method O2 Flow Rate 11/18/24 12:09 Room Air 11/18/24 11:41 0 11/18/24 11:03 11/18/24 10:09 11/18/24 10:04 11/18/24 09:59 11/18/24 09:54 11/18/24 09:03 Room Air 11/18/24 08:21 11/18/24 08:00 Room Air 11/18/24 08:00 Room Air 11/18/24 08:00 11/18/24 07:42 11/18/24 07:29 11/18/24 07:26 11/18/24 07:00 Room Air 11/18/24 05:03 11/18/24 04:42 11/18/24 04:03 11/18/24 04:00 11/18/24 04:00 11/18/24 03:45 11/18/24 03:09 Laboratory Results Laboratory Results - last 24 hr 11/17/24 11/18/24 11/18/24 07:13 04:25 07:20 PT 19.2 H INR 1.9 H APTT 95 H* PTT Ratio 3.5 Fibrinogen 393 Heparin Anti-Xa, Unfract 0.88 H* POC Glucose 71 Hepatitis A IgM Ab NON-REACTIVE Hep B Core IgM Ab NON-REACTIVE 11/18/24 11/18/24 11/18/24 11:25 16:16 19:16 PT INR APTT PTT Ratio Fibrinogen Heparin Anti-Xa, Unfract POC Glucose 106 H 70 106 H Hepatitis A IgM Ab Hep B Core IgM Ab PG Care Time/CCT Total # of Minutes Spent Total Time Spent with Patient: Total time spent is greater than 50% in coordination of care (as documented) at patient's floor/unit and/or counseling patient: Coding Level of Care Code 22403 SUB INP/OBS CARE 2/35MIN Diagnoses Cardiogenic shock R57.0 Septic shock A41.9; R65.21 Influenza A J10.1 Acute on chronic heart failure with preserved ejection fraction I50.33 Atrial fibrillation with rapid ventricular response I48.91 Pneumonia J18.9 Lactic acidosis E87.20 Sepsis A41.9 Coronary artery disease I25.10 Acute respiratory failure with hypoxia J96.01 Shock liver K72.00
[2024-11-19 06:24] LABS: Albumin Level 2.5 gm/dl (3.4-5.0); BUN Creatinine Ratio 27.3 (10-20); Bilirubin Direct 0.3 mg/dl (0-0.2); Bilirubin,Total 0.9 mg/dl (0.2-1.0); Calcium 7.9 mg/dl (8.6-10.3); Potassium 3.7 mmol/L (3.5-5.1); Total Protein 4.7 gm/dl (6.0-8.3)
[2024-11-19 06:50] LABS: INR 1.6 (0.9-1.1); Prothrombin Time 16.9 Seconds (9.0-12.0)
--- NOTE | 2024-11-19 14:33 | Cardiology Progress Note ---
Date of Service November 19, 2024 Assessment & Plan (1) Acute exacerbation of CHF (congestive heart failure): Plan: * Transthoracic echocardiogram with noted mild left ventricular systolic dysfunction, LVEF 44%, moderate to severe MR which is unchanged compared to previous echo, mild to moderate tricuspid regurgitation now noted with moderate pulmonary hypertension, pulmonary systolic pressure estimated to be in the 50s which is a new finding. * IV furosemide 20 mg x 1 now * Consider restart outpatient Entresto and Aldactone pending review of a.m. labs 11/20/2024 (2) Atrial fibrillation with rapid ventricular response: Plan: * Persistent likely permanent atrial fibrillation with failed cardioversion 11/17/2024. * Rate controlled * Amiodarone discontinued due to transaminitis * Digoxin level was low on presentation. She received 2 doses of IV digoxin, 125 mcg, 250 mcg 11/16/2024, and additional 125 mcg 11/17/2024. * Continue digoxin 0.125 mg Saturday, Saturday, and Saturday only * Continue metoprolol tartrate 12.5 mg PO BID. * Eliquis restarted, IV heparin discontinued (3) Cardiogenic shock: Plan: * Patient presents with multifactorial shock in the setting of influenza A with noted lactic acidosis. * Norepinephrine weaned off. * Gram-positive cocci in clusters noted on 1 of 2 blood cultures obtained on presentation 11/16/2024 and patient is on coverage with Rocephin and doxycycline at present. * Chest ray x-ray consistent with pneumonia and CHF. (4) Influenza A: (5) Septic shock: (6) Tricuspid valve mass: Plan: * Known mass adherent to the annular portion of the septal leaflet of the tricuspid valve. Relatively unchanged on TTE 11/17/2024 compared to prior BORIS performed in 2022 * Patient had med with CT surgery in 2022, opting for observation rather than intervention at that time. Admission and Anticipated Discharge Date Admission Date: November 16, 2024 Subjective 79-year-old female seen examined the bedside. Reports ankle is feeling sore today. Mild edema noted. Denies chest pain or shortness of breath. Telemetry reveals atrial fibrillation in the 90s. Tolerating meds and diet. present at bedside. Offers no additional concerns/complaints. Review of Systems Review of Systems: All systems reviewed & are unremarkable except as noted in Subjective Physical Exam Constitutional: well developed and well nourished; no acute distress Respiratory: no respiratory distress, no labored breathing and no retractions Auscultation: lungs clear to auscultation bilaterally; no crackles, no rales, no rhonchi and no wheezes Cardiovascular: Rate/Rhythm: + irregularly irregular Heart Sounds: normal S1 and normal S2; no murmur Vessels: no JVD Extremities: no edema Gastrointestinal (Abdomen): Inspection/Auscultation: normal bowel sounds; abdomen not distended Percussion/Palpation: abdomen soft; abdomen nontender, no guarding and abdomen not rigid Neurologic: CN's II-XI intact bilaterally and moves all extremities Results & Data Vital Signs (Past 12 Hours) Vital Signs Temp Pulse Pulse Resp BP Pulse Ox Pulse Ox 11/19/24 12:00 36.8 C 98 H 16 136/80 94 11/19/24 08:00 96 11/19/24 08:00 11/19/24 08:00 93 H 11/19/24 07:00 36.4 C L 96 H 20 129/80 96 11/19/24 06:00 93 H 16 96 11/19/24 05:30 95 H 15 96 11/19/24 05:00 95 H 18 97 11/19/24 04:30 97 H 25 H 97 11/19/24 04:18 95 H 21 98 11/19/24 03:30 103 H 26 H 97 11/19/24 03:09 91 H 22 93 11/19/24 02:39 91 H 23 98 O2 Del Method O2 Del Method 11/19/24 12:00 Room Air 11/19/24 08:00 Room Air 11/19/24 08:00 Room Air 11/19/24 08:00 11/19/24 07:00 Room Air 11/19/24 06:00 11/19/24 05:30 11/19/24 05:00 11/19/24 04:30 11/19/24 04:18 11/19/24 03:30 11/19/24 03:09 11/19/24 02:39 Laboratory Results Cardiac Enzymes 11/19/24 Range/Units 05:16 AST 1283 H (13-39) U/L Coagulation 11/19/24 Range/Units 05:16 PT 16.9 H (9.0-12.0) Seconds Comprehensive Metabolic Panel 11/19/24 Range/Units 05:16 Sodium 138 (136-145) mmol/L Potassium 3.7 (3.5-5.1) mmol/L Chloride 108 H (98-107) mmol/L Carbon Dioxide 24 (21-32) mmol/L BUN 27 H (6-23) mg/dl Creatinine 0.99 D (0.6-1.2) mg/dl Glucose 111 H (70-99(Fasting)) mg/dl Calcium 7.9 L (8.6-10.3) mg/dl Direct Bilirubin 0.3 H (0-0.2) mg/dl AST 1283 H (13-39) U/L ALT 2302 H (7-52) U/L Alkaline Phosphatase 113 H (34-104) U/L Total Protein 4.7 L (6.0-8.3) gm/dl Albumin 2.5 L (3.4-5.0) gm/dl Intake and Output 11/18/24 11/19/24 11/19/24 22:59 06:59 14:59 Intake Total 950 / 950 Output Total 1924 1250 / 1250 Balance -425 / -284.417 -1000 / -284.417 -300 / -300 Intake: IV 50 / 50 cefTRIAXone SODIUM 2,000 mg In 50 / 50 50 ml @ 100 mls/hr IV Q24H [facility] Rx#:[id number] Oral 900 / 900 Output: Urine Amount (Catheter) 1924 1250 / 1250 Can/Indwelling 1924 1250 / 1250 Other: Weight 87.2 kg Weight Measurement Method Built in [facility]
[2024-11-19] MEDS: FUROSEMIDE INJ 20 MG/2 ML VIAL IV ONE (15:26)
--- NOTE | 2024-11-19 19:25 | Hospitalist Progress Note ---
Date of Service November 19, 2024 Assessment & Plan (1) Cardiogenic shock: Plan: 2nd to rapid a.fib in the setting of resolving fluA infection & severe sepsis/septic shock shock resolved - off pressors as of 11/17 agree with dose of IV lasix today in light of exam & symptoms holding Entresto cont metoprolol BID; ultimately needs conversion back to meto succ cont digoxin M/W/F (2) Septic shock: Plan: shock resolved source - pneumonia in the setting of fluA infection (initially tested + on 11/03/24) remains on rocephin & doxy to cover for bacterial superinfection 1/4 blood cx's from admission + these are likely contaminants repeat blood cx's negative thus far (3) Influenza A: Plan: initially tested + on 11/03/24 droplet precautions for now unless infection control states we can remove such outside the window for Tamiflu to provide benefit thus did not receive such cont IV abx for probable bacterial superinfection (4) Acute on chronic heart failure with preserved ejection fraction: Plan: lasix x 1 today appreciate cardiology assistance cont to hold Entresto cont metoprolol as noted above (5) Atrial fibrillation with rapid ventricular response: Plan: s/p emergent cardioversion hospital day #1 for rapid a.fib in the setting of shock then started on amiodarone IV however, with shock liver, the amiodarone was stopped echo this admission - EF 44% low-dose meto tartate resumed at 12.5mg BID cont Eliquis (6) Pneumonia: Plan: either 2nd to fluA infection and/or bacterial superinfection cont ceftriaxone cont doxycycline day #3 of each abx plan 7 days of Rx in total (7) Lactic acidosis: Plan: 2nd to shock - resolved (8) Sepsis: Plan: source - lung with associated shock -- resolved 1/4 blood cx's + for multiple organisms - most certainly this is contamination repeat blood cx's negative (9) Coronary artery disease: Plan: s/p JAILENE to RCA 2018, JAILENE to LAD 2020 resume asa am cont metoprolol BID hold statin due to shock liver (10) Acute respiratory failure with hypoxia: Plan: 2nd to fluA infection +/- bacterial superinfection of lungs +/- pulm edema improved/resolved (11) Shock liver: Plan: severe transaminitis in the setting of shock - improving INR noted to be 1.6 and improving repeat LFTs am repeat INR am avoid agents toxic to the liver including statins, amiodarone, etc. Dr Raya added NAC protocol and she completed such (12) Numbness of feet: Plan: b/l feet - mainly the forefoot b/l acute typically does not have such at home TSH wnl check a B12 level K/mag wnl a few days ago had considerable ischemic appearing changes to feet while on pressors those ischemic changes improved after pressors were stopped will check arterial dopplers to rule out acute clot, etc in light of emergent cardioversion for her a.fib (embolization always possible with such) if negative, and if numbness persists, then consider MRI brain doubt due to lumbar spine disease (13) Positive blood culture: Plan: 1 out of 4 blood cx's from admission positive for multiple organisms likely contamination repeat blood cx's drawn and remain negative Plan VTE Prophylaxis - Evan ANTHONY appreciate cardiology assistance updated pt's son by phone 11/18 cont PT/OT dispo - rehab Admission and Anticipated Discharge Date Admission Date: November 16, 2024 Subjective patient reports b/l foot numbness started some time today typically does not have numbness in her feet denies low back pain denies numbness any other location denies pain in her feet she worked with PT today - was considerably fatigued during the session - but she did walk with rolling walker had dyspnea with working with PT c/o mild discomfort over the L chest next to sternum; started while we were talking no pleuritic pain eating well tele - a.fib, most rates <100 Review of Systems Review of Systems: CV - no substernal chest pain pulm - mild cough, no dyspnea at rest but +CARRASCO GI - no abd pain or N/V Physical Exam Physical Exam: gen - laying in bed, c/o left sided chest wall pain neck - suspected mild JVD, dressing L neck intact mouth - MMM, no thrush heart - irregularly irregular, s1 s2, no murmur chest - tenderness to palpation L chest near the sternum; the area of pain is about an inch in size lungs - mildly decreased BS bases; rales bases; no increased work of breathing abd - soft NT ND BS+ ext - pulses 2+ b/l feet and popliteal b/l; cap refill about 2-3 sec; 1+ edema b/l psych - a/o x 3 neuro - strength 5/5 x b/l legs Results & Data Results & Data Vital Signs (Past 12 Hours) Vital Signs Temp Pulse Pulse Resp BP BP Pulse Ox 11/19/24 19:16 111/67 11/19/24 16:00 93 H 11/19/24 14:50 36.7 C 98 H 20 111/69 96 11/19/24 12:00 36.8 C 98 H 16 136/80 94 11/19/24 08:00 11/19/24 08:00 11/19/24 08:00 93 H Pulse Ox O2 Del Method O2 Del Method 11/19/24 19:16 11/19/24 16:00 11/19/24 14:50 Room Air 11/19/24 12:00 Room Air 11/19/24 08:00 96 Room Air 11/19/24 08:00 Room Air 11/19/24 08:00 Laboratory Results Laboratory Results - last 24 hr 11/16/24 11/19/24 17:38 05:16 PT 16.9 H INR 1.6 H Sodium 138 Potassium 3.7 Chloride 108 H Carbon Dioxide 24 Anion Gap 6 BUN 27 H Creatinine 0.99 D Est Cr Clr Drug Dosing 47.0 eGFR 58.36 BUN/Creatinine Ratio 27.3 H Glucose 111 H Calcium 7.9 L Total Bilirubin 0.9 Direct Bilirubin 0.3 H AST 1283 H ALT 2302 H Alkaline Phosphatase 113 H Total Protein 4.7 L Albumin 2.5 L Influ A Subtyping (PCR) See Scanned Report PG Care Time/CCT Total # of Minutes Spent Total Time Spent with Patient: Total time spent is greater than 50% in coordination of care (as documented) at patient's floor/unit and/or counseling patient: Coding Level of Care Code 45283 SUB INP/OBS CARE 3/50MIN Diagnoses Cardiogenic shock R57.0 Septic shock A41.9; R65.21 Influenza A J10.1 Acute on chronic heart failure with preserved ejection fraction I50.33 Atrial fibrillation with rapid ventricular response I48.91 Pneumonia J18.9 Lactic acidosis E87.20 Sepsis A41.9 Coronary artery disease I25.10 Acute respiratory failure with hypoxia J96.01 Shock liver K72.00 Numbness of feet R20.0 Positive blood culture R78.81
--- NOTE | 2024-11-19 20:14 | Ultrasound Report ---
Exam(s): US ARTERIAL BILATERAL LOWER EXTREMITIES EXAM: US Duplex Bilateral Lower Extremities Arteries CLINICAL HISTORY: Reason for exam: acute b/l foot numbness, delayed cap refill. TECHNIQUE: Real-time duplex ultrasound scan of the bilateral lower extremity arteries integrating B-mode two-dimensional vascular structure, Doppler spectral analysis and color flow Doppler imaging. COMPARISON: No relevant prior studies available. FINDINGS: Right common femoral artery: Mild nonflow limiting plaque. No occlusion or significant stenosis on color flow and spectral Doppler imaging. Normal waveform. Right superficial femoral artery: No acute findings. No occlusion or significant stenosis on color flow and spectral Doppler imaging. Normal waveform. Right popliteal artery: No acute findings. No occlusion or significant stenosis on color flow and spectral Doppler imaging. Normal waveform. Right calf/foot arteries: No acute findings. No occlusion or significant stenosis on color flow and spectral Doppler imaging. Normal waveform. Left common femoral artery: No acute findings. No occlusion or significant stenosis on color flow and spectral Doppler imaging. Normal waveform. Left superficial femoral artery: Mild nonflow limiting plaque. No occlusion or significant stenosis on color flow and spectral Doppler imaging. Normal waveform. Left popliteal artery: No acute findings. No occlusion or significant stenosis on color flow and spectral Doppler imaging. Normal waveform. Left calf/foot arteries: No acute findings. No occlusion or significant stenosis on color flow and spectral Doppler imaging. Normal waveform. Soft tissues: Unremarkable. IMPRESSION: No arterial occlusion or flow-limiting stenosis. Electronically signed by: Jay Arriaga MD 11/19/24 20:13 PM
[2024-11-19] MEDS: PHENAZOPYRIDINE HCL 200 MG TAB PO STA (22:13)
[2024-11-20 05:27] LABS: Calcium 7.4 mg/dl (8.6-10.3); Creatinine Clr Calc Pharmacy 60.4 ml/min; Potassium 3.4 mmol/L (3.5-5.1)
[2024-11-20 05:41] LABS: INR 1.3 (0.9-1.1)
[2024-11-20 05:43] LABS: Albumin Level 2.4 gm/dl (3.4-5.0); Bilirubin Direct 0.4 mg/dl (0-0.2); Bilirubin,Total 1.3 mg/dl (0.2-1.0); Total Protein 4.7 gm/dl (6.0-8.3)
[2024-11-20] MEDS: ASPIRIN 81 MG ECTAB PO SCH (08:16)
[2024-11-20] MEDS: POTASSIUM CHLORIDE CRTAB 20 MEQ TABCR PO STA (08:16)
[2024-11-20] MEDS: LIDOCAINE 5% 1 PATCH TD SCH (09:49)
--- NOTE | 2024-11-20 14:15 | Cardiology Progress Note ---
Date of Service November 20, 2024 Assessment & Plan (1) Acute exacerbation of CHF (congestive heart failure): Plan: * Transthoracic echocardiogram with noted mild left ventricular systolic dysfunction, LVEF 44%, moderate to severe MR which is unchanged compared to previous echo, mild to moderate tricuspid regurgitation now noted with moderate pulmonary hypertension, pulmonary systolic pressure estimated to be in the 50s which is a new finding. * Add oral furosemide 40 mg daily (outpatient dose) * Contnue to hold Entresto and Aldactone due borderline hypotension (2) Atrial fibrillation with rapid ventricular response: Plan: * Persistent likely permanent atrial fibrillation with failed cardioversion 11/17/2024. * Elevated heart rates with activity, borderline control at rest * Amiodarone discontinued due to transaminitis * Digoxin level was low on presentation. She received 2 doses of IV digoxin, 125 mcg, 250 mcg 11/16/2024, and additional 125 mcg 11/17/2024. * Continue digoxin 0.125 mg Saturday, Saturday, and Saturday only * Increase metoprolol to 25mg BID * Eliquis restarted Admission and Anticipated Discharge Date Admission Date: November 16, 2024 Subjective 79-year-old female seen examined at the bedside. Elevated heart rates noted during activity. Denies chest pain or palpitations. Dyspnea on exertion unchanged. Continues to report soreness of her feet and ankles. Physical Exam Constitutional: well developed and well nourished; no acute distress Respiratory: no respiratory distress, no labored breathing and no retractions Auscultation: lungs clear to auscultation bilaterally; no crackles, no rales, no rhonchi and no wheezes Cardiovascular: Rate/Rhythm: + irregularly irregular Heart Sounds: normal S1 and normal S2; no murmur Vessels: no JVD Extremities: no edema Gastrointestinal (Abdomen): Inspection/Auscultation: normal bowel sounds; abdomen not distended Percussion/Palpation: abdomen soft; abdomen nontender, no guarding and abdomen not rigid Neurologic: CN's II-XI intact bilaterally and moves all extremities Results & Data Vital Signs (Past 12 Hours) Vital Signs Temp Pulse Pulse Resp BP BP Pulse Ox 11/20/24 12:14 108 H 11/20/24 11:50 36.6 C 116 H 20 98/82 L 94 11/20/24 11:43 118 H 11/20/24 08:00 11/20/24 08:00 96 H 11/20/24 08:00 11/20/24 06:59 36.4 C L 11/20/24 04:06 96 H 16 96 11/20/24 04:00 114/70 11/20/24 04:00 114/70 11/20/24 04:00 114/70 11/20/24 04:00 36.9 C 11/20/24 03:12 109 H 15 97 11/20/24 02:18 96 H 15 96 Pulse Ox O2 Del Method O2 Del Method 11/20/24 12:14 11/20/24 11:50 Room Air 11/20/24 11:43 11/20/24 08:00 96 Room Air 11/20/24 08:00 11/20/24 08:00 Room Air 11/20/24 06:59 11/20/24 04:06 11/20/24 04:00 11/20/24 04:00 11/20/24 04:00 11/20/24 04:00 11/20/24 03:12 11/20/24 02:18 (1) Acute exacerbation of CHF (congestive heart failure) Heart failure type: combined systolic and diastolic Qualified Code(s): I50.43 - Acute on chronic combined systolic (congestive) and diastolic (congestive) heart failure
[2024-11-20] MEDS: SODIUM CHLORIDE 0.65% NA SOLN 45 ML (OCEAN) PRN (14:39)
[2024-11-20] MEDS: ONDANSETRON INJ 2 MG/ML 2 ML VIAL IV PRN (14:39)
[2024-11-20] MEDS ORDERED: bisacodyL 10 MG SUPP PR PRN (15:06)
--- NOTE | 2024-11-20 15:09 | Hospitalist Progress Note ---
Date of Service November 20, 2024 Assessment & Plan (1) Cardiogenic shock: Plan: 2nd to rapid a.fib in the setting of resolving fluA infection & severe sepsis/septic shock - present on admission shock resolved - off pressors as of 11/17 (2) Septic shock: Plan: shock resolved source - pneumonia in the setting of fluA infection (initially tested + on 11/03/24) remains on rocephin & doxy to cover for bacterial superinfection 1/4 blood cx's from admission + these are likely contaminants repeat blood cx's negative remain negative (3) Influenza A: Plan: initially tested + on 11/03/24 cont droplet precautions for now unless infection control states we can remove such clearly outside the window for Tamiflu to provide benefit thus did not receive such even early in the admission cont IV abx for probable bacterial superinfection (4) Acute on chronic systolic CHF (congestive heart failure): Plan: EF 44% this admission s/p lasix IV x 1 yesterday PO lasix 40mg daily added by [facility] metoprolol tartrate 12.5mg BID increased to 25mg BID today ultimately will need transitioned to meto succ hold Entresto hold aldactone (5) Atrial fibrillation with rapid ventricular response: Plan: s/p emergent cardioversion hospital day #1 for rapid a.fib in the setting of shock then started on amiodarone IV however, with shock liver, the amiodarone was then stopped echo this admission - EF 44% titrate meto tartate from 12.5mg BID to 25mg BID cont Eliquis (6) Pneumonia: Plan: likely bacterial superinfection cont ceftriaxone cont doxycycline day #4 of each abx plan 7 days of Rx in total may be able to transition to PO abx tomorrow (7) Lactic acidosis: Plan: 2nd to shock - resolved (8) Sepsis: Plan: source - lung with associated shock -- resolved 1/ blood cx's + for multiple organisms - most certainly this is contamination repeat blood cx's negative (9) Coronary artery disease: Plan: s/p JAILENE to RCA 2018, JAILENE to LAD 2020 resumed asa 81mg daily cont metoprolol BID hold statin due to shock liver (10) Acute respiratory failure with hypoxia: Plan: 2nd to fluA infection +/- bacterial superinfection of lungs +/- pulm edema resolved off supplemental O2 (11) Shock liver: Plan: severe transaminitis in the setting of shock - improving INR 1.3 - improved repeat LFTs am avoid agents toxic to the liver including statins, amiodarone, etc. completed NAC protocol while on ICU service (12) Numbness of feet: Plan: b/l feet - mainly the forefoot b/l acute typically does not have such at home TSH wnl B12 level wnl K/mag wnl a few days ago had considerable ischemic appearing changes to feet while on pressors those ischemic changes improved after pressors were stopped arterial dopplers negative if negative, and if numbness persists, then consider MRI brain doubt due to lumbar spine disease (13) Positive blood culture: Plan: 1 out of 4 blood cx's from admission positive for multiple organisms likely contamination repeat blood cx's drawn and remain negative (14) Constipation: Plan: add senna add miralax add dulcolax suppos prn add zofran prn (15) Musculoskeletal chest pain: Plan: troponin negative EKG w/o ischemic changes reproducible on exam lidoderm patches prn Plan VTE Prophylaxis - Eliquis BID appreciate cardiology assistance updated pt's son by phone 11/18 and today, 11/20 cont PT/OT dispo - rehab next week (family requests [facility]) Admission and Anticipated Discharge Date Admission Date: November 16, 2024 Subjective remains in a.fib rates at rest 90s-low 100s rates with activity 120s/130s continues with mild paresthesias of all toes b/l feet - a little better than yesterday no new areas of paresthesias continues with mild chest wall discomfort L chest - same location as prior no dyspnea feels congested in her nose right arm swelling/bruising noted by patient today by report this is the arm where her BP cuff was previously Review of Systems Review of Systems: cv - no substernal chest pain; typically has just LLE edema at baseline pulm - minimal cough GI - mild stomach upset, mild nausea, feels full/bloated -- but passing flatus - c/o bladder pain Physical Exam Physical Exam: gen - laying in bed, NAD neck - no JVD mouth - MMM, no thrush heart - irregularly irregular, s1 s2, no murmur, rate about 100 lungs - mildly decreased BS bases; minimal rales bases; no increased work of breathing abd - soft NT ND BS+ ext - pulses 2+ b/l feet and popliteal b/l; cap refill about 2-3 sec; <1+ edema b/l - a little worse on the left psych - a/o x 3 skin - considerable bruising right forearm; no palpable cords Results & Data Results & Data Vital Signs (Past 12 Hours) Vital Signs Temp Pulse Pulse Resp BP BP Pulse Ox 11/20/24 12:14 108 H 11/20/24 11:50 36.6 C 116 H 20 98/82 L 94 11/20/24 11:43 118 H 11/20/24 08:00 11/20/24 08:00 96 H 11/20/24 08:00 11/20/24 06:59 36.4 C L 11/20/24 04:06 96 H 16 96 11/20/24 04:00 114/70 11/20/24 04:00 114/70 11/20/24 04:00 114/70 11/20/24 04:00 36.9 C 11/20/24 03:12 109 H 15 97 Pulse Ox O2 Del Method O2 Del Method 11/20/24 12:14 11/20/24 11:50 Room Air 11/20/24 11:43 11/20/24 08:00 96 Room Air 11/20/24 08:00 11/20/24 08:00 Room Air 11/20/24 06:59 11/20/24 04:06 11/20/24 04:00 11/20/24 04:00 11/20/24 04:00 11/20/24 04:00 11/20/24 03:12 Laboratory Results Laboratory Results - last 24 hr 11/20/24 04:21 PT 14.0 H INR 1.3 H Sodium 138 Potassium 3.4 L Chloride 104 Carbon Dioxide 27 Anion Gap 7 BUN 20 Creatinine 0.77 Est Cr Clr Drug Dosing 60.4 eGFR 78.91 BUN/Creatinine Ratio 26.0 H Glucose 88 Calcium 7.4 L Total Bilirubin 1.3 H Direct Bilirubin 0.4 H AST 444 H ALT 1495 H Alkaline Phosphatase 118 H Troponin I High Sens 13.0 Total Protein 4.7 L Albumin 2.4 L Vitamin B12 > 1500 H PG Care Time/CCT Total # of Minutes Spent Total Time Spent with Patient: Total time spent is greater than 50% in coordination of care (as documented) at patient's floor/unit and/or counseling patient: Coding Level of Care Code 10660 SUB INP/OBS CARE 3/50MIN Diagnoses Cardiogenic shock R57.0 Septic shock A41.9; R65.21 Influenza A J10.1 Acute on chronic systolic CHF (congestive heart failure) I50.23 Atrial fibrillation with rapid ventricular response I48.91 Pneumonia J18.9 Lactic acidosis E87.20 Sepsis A41.9 Coronary artery disease I25.10 Acute respiratory failure with hypoxia J96.01 Shock liver K72.00 Numbness of feet R20.0 Positive blood culture R78.81 Constipation K59.00 Musculoskeletal chest pain R07.89
[2024-11-20] MEDS: FAMOTIDINE 20MG IV PUSH 20 MG/5 ML SYR IV STA (15:51)
[2024-11-20] MEDS: FUROSEMIDE 40 MG TAB PO SCH (15:52)
[2024-11-20] MEDS: SENNA 8.6 MG TAB PO SCH (15:52)
[2024-11-20] MEDS: POLYETHYLENE (MIRALAX) 17 GM PACK PO SCH (15:52)
[2024-11-20] MEDS: PHENAZOPYRIDINE HCL 100 MG TAB PO SCH (16:30)
[2024-11-20] MEDS: POTASSIUM CHLORIDE 20 MEQ/15 ML UDC PO STA (21:07)
[2024-11-20] MEDS: METOPROLOL TARTRATE 25 MG TAB PO SCH (21:08)
[2024-11-20] MEDS: POTASSIUM CHLORIDE CRTAB 20 MEQ TABCR PO SCH (21:08)
[2024-11-21 06:04] LABS: Albumin Level 2.6 gm/dl (3.4-5.0); BUN Creatinine Ratio 24.3 (10-20); Bilirubin Direct 0.3 mg/dl (0-0.2); Calcium 7.6 mg/dl (8.6-10.3); Creatinine Clr Calc Pharmacy 66.8 ml/min; Magnesium 1.3 mg/dl (1.7-2.4); Potassium 4.1 mmol/L (3.5-5.1)
--- NOTE | 2024-11-21 07:18 | Electrocardiogram Report ---
Test Reason : Blood Pressure : */* mmHG Vent. Rate : 107 BPM Atrial Rate : * BPM P-R Int : * ms QRS Dur : 84 ms QT Int : 324 ms P-R-T Axes : * 7 149 degrees QTcB Int : 432 ms Atrial fibrillation with rapid ventricular response Diffuse Minor Nonspecific T wave abnormality Abnormal ECG When compared with ECG of 16-Nov-2024 22:33, Atrial fibrillation has replaced Sinus rhythm Vent. rate has increased by 35 bpm Nonspecific T wave abnormality now present QT has shortened Confirmed by Josue Barger ([id number]) on 11/21/2024 7:18:05 AM Referred By: REFERRED SELF Confirmed By: Josue Barger
[2024-11-21] MEDS: MAGNESIUM SULFATE / D5W 1 GM/100 ML BAG IV SCH (07:42)
[2024-11-21] MEDS: CEFDINIR 300 MG CAP PO SCH (07:43)
--- NOTE | 2024-11-21 11:25 | Cardiology Progress Note ---
Date of Service November 21, 2024 Assessment & Plan (1) Acute exacerbation of CHF (congestive heart failure): Plan: * Transthoracic echocardiogram with noted mild left ventricular systolic dysfunction, LVEF 44%, moderate to severe MR which is unchanged compared to previous echo, mild to moderate tricuspid regurgitation now noted with moderate pulmonary hypertension, pulmonary systolic pressure estimated to be in the 50s which is a new finding. * Continue oral furosemide 40 mg daily (outpatient dose) * Hypomagnesemia noted, replacement ordered. * Monitor fluid balance, daily weight, GFR, and electrolytes. * Consider restart Entresto and/or Aldactone in 24-48 hours pending ongoing blood pressure assessment. (2) Atrial fibrillation with rapid ventricular response: Plan: * Persistent likely permanent atrial fibrillation with failed cardioversion 11/17/2024. * Elevated heart rates with activity, borderline control at rest * Amiodarone discontinued due to transaminitis * Digoxin level was low on presentation. She received 2 doses of IV digoxin, 125 mcg, 250 mcg 11/16/2024, and additional 125 mcg 11/17/2024. * Continue digoxin 0.125 mg Saturday, Saturday, and Saturday only * Increase metoprolol to 25mg TID * Eliquis restarted Admission and Anticipated Discharge Date Admission Date: November 16, 2024 Subjective Patient seen examined the bedside. Fluid balance -2.6 L. Feeling better from a cardiovascular perspective. Heart rate remains borderline elevated on telemet ry. Atrial fibrillation 90's - 100s noted.Denies chest pain or palpitations. Review of Systems Review of Systems: All systems reviewed & are unremarkable except as noted in Subjective Physical Exam Constitutional: well developed and well nourished; no acute distress Respiratory: normal respiratory effort; no respiratory distress and no labored breathing Auscultation: + diminished lung sounds (Bases bilateral) and + rales (Bases bilateral) Cardiovascular: Rate/Rhythm: + irregularly irregular Heart Sounds: normal S1 and normal S2; no murmur Vessels: no JVD Extremities: + edema (Trace to mild bilateral pedal and ankle edema) Gastrointestinal (Abdomen): Inspection/Auscultation: normal bowel sounds; abdomen not distended Percussion/Palpation: abdomen soft; abdomen nontender, no guarding and abdomen not rigid Neurologic: CN's II-XI intact bilaterally and moves all extremities; no focal motor deficits Results & Data Vital Signs (Past 12 Hours) Vital Signs Temp Pulse Pulse Resp BP BP Pulse Ox 11/21/24 08:00 100 H 20 127/70 98 11/21/24 08:00 11/21/24 08:00 101 H 11/21/24 08:00 11/21/24 06:05 101 H 10 L 96 11/21/24 06:00 104/77 11/21/24 05:51 97 H 20 94 11/21/24 04:00 109/78 11/21/24 04:00 105 H 16 109/78 100 11/21/24 04:00 36.6 C 11/21/24 02:06 102 H 20 90 11/21/24 00:00 102 H 16 96 11/21/24 00:00 11211/21/24 00:00 11211/21/24 00:00 11211/21/24 00:00 97 H 11/21/24 00:00 36.8 C Pulse Ox O2 Del Method O2 Del Method 11/21/24 08:00 Room Air 11/21/24 08:00 94 Room Air 11/21/24 08:00 11/21/24 08:00 Room Air 11/21/24 06:05 11/21/24 06:00 11/21/24 05:51 11/21/24 04:00 11/21/24 04:00 11/21/24 04:00 11/21/24 02:06 11/21/24 00:00 11/21/24 00:00 11/21/24 00:00 11/21/24 00:00 11/21/24 00:00 11/21/24 00:00 Laboratory Results Cardiac Enzymes 11/21/24 Range/Units 04:53 AST 206 H (13-39) U/L Comprehensive Metabolic Panel 11/21/24 Range/Units 04:53 Sodium 137 (136-145) mmol/L Potassium 4.1 D (3.5-5.1) mmol/L Chloride 104 (98-107) mmol/L Carbon Dioxide 29 (21-32) mmol/L BUN 17 (6-23) mg/dl Creatinine 0.70 (0.6-1.2) mg/dl Glucose 88 (70-99(Fasting)) mg/dl Calcium 7.6 L (8.6-10.3) mg/dl Direct Bilirubin 0.3 H (0-0.2) mg/dl AST 206 H (13-39) U/L ALT 1018 H (7-52) U/L Alkaline Phosphatase 117 H (34-104) U/L Total Protein 5.0 L (6.0-8.3) gm/dl Albumin 2.6 L (3.4-5.0) gm/dl Intake and Output 11/20/24 11/21/24 11/21/24 22:59 06:59 14:59 Intake Total 400 / 950 50 / 950 100 / 100 Output Total 2900 / 3700 450 / 3700 Balance -2500 / -2750 -400 / -2750 100 / 100 Intake: IV 100 / 100 Magnesium Sulfate / D5w 1 gm In 100 / 100 100 ml @ 50 mls/hr IV Q2H [facility] Rx#:[id number] Oral 400 / 900 50 / 900 Output: Urine Amount (Catheter) 2900 / 3700 450 / 3700 Can/Indwelling 2900 / 3700 450 / 3700 Other: Weight 81.4 kg Weight Measurement Method Built in [facility] (1) Acute exacerbation of CHF (congestive heart failure) Heart failure type: combined systolic and diastolic Qualified Code(s): I50.43 - Acute on chronic combined systolic (congestive) and diastolic (congestive) heart failure
[2024-11-21] MEDS: METOPROLOL TARTRATE 25 MG TAB PO SCH (14:20)
--- NOTE | 2024-11-21 20:19 | Hospitalist Progress Note ---
Date of Service November 21, 2024 Assessment & Plan (1) Cardiogenic shock: Plan: 2nd to rapid a.fib in the setting of resolving fluA infection & severe sepsis/septic shock - present on admission shock resolved - off pressors as of 11/17 CHF/BP meds resumed (2) Septic shock: Plan: shock resolved source - pneumonia in the setting of fluA infection (initially tested + on 11/03/24) remains on rocephin & doxy to cover for bacterial superinfection 1/4 blood cx's from admission + these are likely contaminants repeat blood cx's negative negative (3) Influenza A: Plan: initially tested + on 11/03/24 cont droplet precautions for now unless infection control states we can remove such clearly outside the window for Tamiflu to provide benefit thus did not receive such even early in the admission cont abx for probable bacterial superinfection (4) Acute on chronic systolic CHF (congestive heart failure): Plan: EF 44% this admission metoprolol restarted and titrated today to 25mg TID by cardiology ultimately will need transitioned to meto succ hold Entresto hold aldactone lasix resumed at 40mg daily looks relatively compensated today (5) Atrial fibrillation with rapid ventricular response: Plan: s/p emergent cardioversion hospital day #1 for rapid a.fib in the setting of shock then started on amiodarone IV however, with shock liver, the amiodarone was then stopped echo this admission - EF 44% titrate meto tartate 25mg BID to 25mg TID per cardiology cont Eliquis cont digoxin M/W/F (6) Pneumonia: Plan: likely bacterial superinfection day #5 of Rx stop rocephin; change to cefdinir 300mg BID for 3 more days cont doxycycline x 3 more days clinically resolving (7) Lactic acidosis: Plan: 2nd to shock - resolved (8) Sepsis: Plan: source - lung with associated shock -- resolved 1/4 blood cx's + for multiple organisms - most certainly this is contamination repeat blood cx's negative (9) Coronary artery disease: Plan: s/p JAILENE to RCA 2018, JAILENE to LAD 2020 resumed asa 81mg daily cont metoprolol BID hold statin due to shock liver (10) Acute respiratory failure with hypoxia: Plan: 2nd to fluA infection +/- bacterial superinfection of lungs +/- pulm edema resolved off supplemental O2 (11) Shock liver: Plan: severe transaminitis in the setting of shock - improving repeat LFTs in 48 hours avoid agents toxic to the liver including statins, amiodarone, etc. completed NAC protocol while on ICU service (12) Numbness of feet: Plan: b/l feet - mainly the forefoot b/l acute typically does not have such at home TSH wnl B12 level wnl K/mag wnl a few days ago had considerable ischemic appearing changes to feet while on pressors those ischemic changes improved after pressors were stopped arterial dopplers negative if negative, and if numbness persists, then consider MRI brain doubt due to lumbar spine disease (13) Positive blood culture: Plan: 1 out of 4 blood cx's from admission positive for multiple organisms likely contamination repeat blood cx's drawn and remain negative (14) Constipation: Plan: cont senna cont miralax added dulcolax suppos prn added zofran prn (15) Musculoskeletal chest pain: Plan: troponin negative EKG w/o ischemic changes reproducible on exam lidoderm patches prn pain resolved Plan hypomagnesemia -- mag sulfate x 3 grams repeat level am VTE Prophylaxis - Eliquis BID appreciate cardiology assistance updated pt's son by phone 11/18 and 11/20 cont PT/OT dispo - rehab next week (family requests [facility]) Admission and Anticipated Discharge Date Admission Date: November 16, 2024 Subjective overall good day today out to the chair couple of times eating is better right arm swelling/discomfort improved chest wall pain resolved numbness in b/l feet (toes) resolving still with minimal cough and still with CARRASCO tele - a.fib, rates low 100s Review of Systems Review of Systems: gen - no fevers or chills cv - no chest pain pulm - no sputum GI - no N/V Physical Exam Physical Exam: gen - sitting in chair, NAD, looks good today neck - no JVD mouth - MMM, no thrush heart - irregularly irregular, s1 s2, no murmur, rate about 100-105 lungs - mildly decreased BS bases; minimal rales bases; no increased work of breathing; no wheezing abd - soft NT ND BS+ ext - pulses 2+ b/l feet and popliteal b/l; cap refill about 2-3 sec; <1+ edema b/l psych - a/o x 3 skin - bruising right forearm but improved from yesterday Results & Data Results & Data Vital Signs (Past 12 Hours) Vital Signs Temp Pulse Resp BP BP Pulse Ox O2 Del Method 11/21/24 16:00 109 H 18 128/82 97 Room Air 11/21/24 12:00 36.7 C 89 20 113/79 Room Air Laboratory Results Laboratory Results - last 24 hr 11/21/24 04:53 Sodium 137 Potassium 4.1 D Chloride 104 Carbon Dioxide 29 Anion Gap 4 BUN 17 Creatinine 0.70 Est Cr Clr Drug Dosing 66.8 eGFR 88.47 BUN/Creatinine Ratio 24.3 H Glucose 88 Calcium 7.6 L Magnesium 1.3 L Total Bilirubin 1.0 Direct Bilirubin 0.3 H AST 206 H ALT 1018 H Alkaline Phosphatase 117 H Total Protein 5.0 L Albumin 2.6 L PG Care Time/CCT Total # of Minutes Spent Total Time Spent with Patient: Total time spent is greater than 50% in coordination of care (as documented) at patient's floor/unit and/or counseling patient: Coding Level of Care Code 15723 SUB INP/OBS CARE 2/35MIN Diagnoses Cardiogenic shock R57.0 Septic shock A41.9; R65.21 Influenza A J10.1 Acute on chronic systolic CHF (congestive heart failure) I50.23 Atrial fibrillation with rapid ventricular response I48.91 Pneumonia J18.9 Lactic acidosis E87.20 Sepsis A41.9 Coronary artery disease I25.10 Acute respiratory failure with hypoxia J96.01 Shock liver K72.00 Numbness of feet R20.0 Positive blood culture R78.81 Constipation K59.00 Musculoskeletal chest pain R07.89
[2024-11-22 05:14] LABS: BUN Creatinine Ratio 31.1 (10-20); Calcium 8.1 mg/dl (8.6-10.3); Creatinine Clr Calc Pharmacy 60.6 ml/min; Magnesium 1.7 mg/dl (1.7-2.4); Potassium 4.1 mmol/L (3.5-5.1)
[2024-11-22] MEDS: MAGNESIUM SULFATE / D5W 1 GM/100 ML BAG IV SCH (09:36)
[2024-11-22] MEDS: METOPROLOL TARTRATE 25 MG TAB PO STA (10:41)
--- NOTE | 2024-11-22 10:42 | Cardiology Progress Note ---
Date of Service November 22, 2024 Assessment & Plan (1) Acute exacerbation of CHF (congestive heart failure): Plan: * Transthoracic echocardiogram with noted mild left ventricular systolic dysfunction, LVEF 44%, moderate to severe MR which is unchanged compared to previous echo, mild to moderate tricuspid regurgitation now noted with moderate pulmonary hypertension, pulmonary systolic pressure estimated to be in the 50s which is a new finding. * Continue oral furosemide 40 mg daily (outpatient dose) * Hypomagnesemia noted, additional 2gm Mag sulfate ordered. * Monitor fluid balance, daily weight, GFR, and electrolytes. * Consider restart Entresto and/or Aldactone in 24-48 hours pending ongoing blood pressure assessment. (2) Atrial fibrillation with rapid ventricular response: Plan: * Persistent likely permanent atrial fibrillation with failed cardioversion 11/17/2024. * Elevated heart rates with activity, borderline control at rest * Amiodarone discontinued due to transaminitis * Increase metoprolol to 50mg BID, additional 25mx x 1 now * Digoxin level was low on presentation. She received 2 doses of IV digoxin, 125 mcg, 250 mcg 11/16/2024, and additional 125 mcg 11/17/2024. * Continue digoxin 0.125 mg Saturday, Saturday, and Saturday * Renal function and return to baseline, consider daily digoxin dosing pending clinical response to titration of metoprolol. * Evan restarted Admission and Anticipated Discharge Date Admission Date: November 16, 2024 Subjective 71-year-old female seen examined the bedside. Heart remains borderline elevated. Denies palpitations. Reports "I feel better". Mild hypomagnesemia noted. Offers no new concerns/complaints. Fluid balance -1.9 L. Review of Systems Review of Systems: All systems reviewed & are unremarkable except as noted in Subjective Physical Exam Constitutional: well developed and well nourished; no acute distress Respiratory: normal respiratory effort; no respiratory distress, no labored breathing and no retractions Auscultation: lungs clear to auscultation bilaterally, + diminished lung sounds (Bases bilateral) and + rales (Bases bilateral); no crackles, no rhonchi and no wheezes Cardiovascular: Rate/Rhythm: + irregularly irregular Heart Sounds: normal S1 and normal S2; no murmur Vessels: no JVD Extremities: + edema (Trace pedal and ankle edema) Gastrointestinal (Abdomen): Inspection/Auscultation: normal bowel sounds; abdomen not distended Percussion/Palpation: abdomen soft; abdomen nontender, no guarding and abdomen not rigid Neurologic: CN's II-XI intact bilaterally and moves all extremities; no focal motor deficits Results & Data Vital Signs (Past 12 Hours) Vital Signs Temp Pulse Pulse Resp BP BP Pulse Ox 11/22/24 08:00 36.9 C 103 H 18 107/70 94 11/22/24 08:00 11/22/24 08:00 102 H 11/22/24 06:03 102 H 23 11/22/24 04:00 99 H 22 107/70 96 11/22/24 04:00 36.3 C L 11/22/24 02:00 96 H 18 11/22/24 00:09 96 H 21 11/22/24 00:00 93 H 11/21/24 23:43 36.7 C 96 H 17 120/73 95 11/21/24 23:42 120/73 11/21/24 23:42 91 H 23 95 Pulse Ox O2 Del Method O2 Del Method 11/22/24 08:00 Room Air 11/22/24 08:00 94 Room Air 11/22/24 08:00 11/22/24 06:03 11/22/24 04:00 11/22/24 04:00 11/22/24 02:00 11/22/24 00:09 11/22/24 00:00 11/21/24 23:43 Room Air 11/21/24 23:42 11/21/24 23:42 Laboratory Results Comprehensive Metabolic Panel 11/22/24 Range/Units 04:34 Sodium 138 (136-145) mmol/L Potassium 4.1 (3.5-5.1) mmol/L Chloride 104 (98-107) mmol/L Carbon Dioxide 29 (21-32) mmol/L BUN 23 (6-23) mg/dl Creatinine 0.74 (0.6-1.2) mg/dl Glucose 180 H (70-99(Fasting)) mg/dl Calcium 8.1 L (8.6-10.3) mg/dl Intake and Output 11/21/24 11/22/24 11/22/24 22:59 06:59 14:59 Intake Total 100 / 550 250 / 550 Output Total 800 / 2350 650 / 2350 Balance -700 / -1800 -400 / -1800 Intake: IV 100 / 300 Magnesium Sulfate / D5w 1 gm In 100 / 300 100 ml @ 50 mls/hr IV Q2H [facility] Rx#:[id number] Oral 250 / 250 Output: Urine 800 / 800 Urine Amount (Catheter) 650 / 1550 Can/Indwelling 650 / 1550 Other: Weight 82.9 kg Weight Measurement Method Built in [facility] (1) Acute exacerbation of CHF (congestive heart failure) Heart failure type: combined systolic and diastolic Qualified Code(s): I50.43 - Acute on chronic combined systolic (congestive) and diastolic (congestive) heart failure
--- NOTE | 2024-11-22 12:07 | Hospitalist Progress Note ---
Date of Service November 22, 2024 Assessment & Plan (1) Cardiogenic shock: Plan: 2nd to rapid a.fib in the setting of resolving fluA infection & severe sepsis/septic shock - present on admission shock resolved - off pressors 11/17 (2) Septic shock: Plan: shock resolved source - pneumonia in the setting of fluA infection (initially tested + on 11/03/24) remains on rocephin & doxy to cover for bacterial superinfection 1/4 blood cx's from admission positive for multiple organisms -- these are likely contaminants repeat blood cx's negative (3) Influenza A: Plan: initially tested + on 11/03/24 cont droplet precautions for now unless infection control states we can remove such clearly outside the window for Tamiflu cont abx for probable bacterial superinfection (4) Acute on chronic systolic CHF (congestive heart failure): Plan: EF 44% this admission metoprolol restarted and titrated today to 50mg BID by cardiology ultimately will need transitioned to meto succ closer to d/c hold Entresto hold aldactone defer timing of resumption to cardiology lasix resumed at 40mg daily and tolerating compensated today (5) Atrial fibrillation with rapid ventricular response: Plan: s/p emergent cardioversion hospital day #1 for rapid a.fib in the setting of shock then started on amiodarone IV however, with shock liver, the amiodarone was then stopped echo this admission - EF 44% titrate meto tartate 50mg BID per cardiology cont Eliquis cont digoxin M/W/F (6) Pneumonia: Plan: likely bacterial superinfection day #6 of Rx was initially on rocephin, now PO cefdinir 300mg BID finished doxy clinically resolving (7) Lactic acidosis: Plan: 2nd to shock - resolved (8) Sepsis: Plan: source - lung with associated shock -- resolved 1/4 blood cx's + for multiple organisms - most certainly this is contamination repeat blood cx's negative (9) Coronary artery disease: Plan: s/p JAILENE to RCA 2018, JAILENE to LAD 2020 resumed asa 81mg daily cont metoprolol BID hold statin due to shock liver (10) Acute respiratory failure with hypoxia: Plan: 2nd to fluA infection +/- bacterial superinfection of lungs +/- pulm edema resolved off supplemental O2 (11) Shock liver: Plan: severe transaminitis in the setting of shock - improving repeat LFTs in am tomorrow along with INR avoid agents toxic to the liver including statins, amiodarone, etc. completed NAC protocol while on ICU service (12) Numbness of feet: Plan: b/l feet - mainly the forefoot b/l acute typically does not have such at home TSH wnl B12 level wnl K/mag wnl a few days ago had considerable ischemic appearing changes to feet while on pressors those ischemic changes improved after pressors were stopped arterial dopplers negative continues to be bothersome - thus, add gabapentin 100mg BID consider MRI brain tomorrow - r/o embolic strokes (13) Positive blood culture: Plan: 1 out of 4 blood cx's from admission positive for multiple organisms likely contamination repeat blood cx's drawn and remain negative (14) Constipation: Plan: cont senna cont miralax (15) Musculoskeletal chest pain: Plan: troponin negative EKG w/o ischemic changes reproducible on exam lidoderm patches prn pain resolved Plan hypomagnesemia -- repleted/resolved VTE Prophylaxis - Eliquis BID appreciate cardiology assistance updated pt's son by phone 11/18 and 11/20 cont PT/OT dispo - rehab next week (family requests [facility]) Admission and Anticipated Discharge Date Admission Date: November 16, 2024 Subjective no new complaints does cont to have numbness/tingling in all toes b/l and states "my feet were on fire earlier" denies numbness any other location denies any motor weakness chest wall pain resolved no dyspnea at rest mild CARRASCO remains tele - a.fib rates about 90-105 Review of Systems Review of Systems: gen - no fevers or chills cv - no substernal pain pulm - no cough GI - no abd pain or N/V Physical Exam Physical Exam: gen - NAD, looks well neck - no JVD mouth - MMM, no thrush heart - irregularly irregular, s1 s2, no murmur lungs - mildly decreased BS bases; minimal rales bases abd - soft NT ND BS+ ext - pulses 2+ b/l feet and popliteal b/l; cap refill about 2-3 sec; trace edema b/l psych - a/o x 3 skin - bruising right forearm evolving Results & Data Results & Data Vital Signs (Past 12 Hours) Vital Signs Temp Pulse Pulse Resp BP BP Pulse Ox 02/02/25 08:00 36.9 C 103 H 18 107/70 94 11/22/24 08:00 11/22/24 08:00 102 H 11/22/24 06:03 102 H 23 11/22/24 04:00 99 H 22 107/70 96 11/22/24 04:00 36.3 C L 11/22/24 02:00 96 H 18 11/22/24 00:09 96 H 21 Pulse Ox O2 Del Method O2 Del Method 11/22/24 08:00 Room Air 11/22/24 08:00 94 Room Air 11/22/24 08:00 11/22/24 06:03 11/22/24 04:00 11/22/24 04:00 11/22/24 02:00 11/22/24 00:09 Laboratory Results Laboratory Results - last 24 hr 11/22/24 04:34 Sodium 138 Potassium 4.1 Chloride 104 Carbon Dioxide 29 Anion Gap 5 BUN 23 Creatinine 0.74 Est Cr Clr Drug Dosing 60.6 eGFR 82.76 BUN/Creatinine Ratio 31.1 H Glucose 180 H Calcium 8.1 L Magnesium 1.7 PG Care Time/CCT Total # of Minutes Spent Total Time Spent with Patient: Total time spent is greater than 50% in coordination of care (as documented) at patient's floor/unit and/or counseling patient: Coding Level of Care Code 73238 SUB INP/OBS CARE 2/35MIN Diagnoses Cardiogenic shock R57.0 Septic shock A41.9; R65.21 Influenza A J10.1 Acute on chronic systolic CHF (congestive heart failure) I50.23 Atrial fibrillation with rapid ventricular response I48.91 Pneumonia J18.9 Lactic acidosis E87.20 Sepsis A41.9 Coronary artery disease I25.10 Acute respiratory failure with hypoxia J96.01 Shock liver K72.00 Numbness of feet R20.0 Positive blood culture R78.81 Constipation K59.00 Musculoskeletal chest pain R07.89
[2024-11-22] MEDS: GABAPENTIN 100 MG CAP PO SCH (12:52)
[2024-11-22] MEDS: METOPROLOL TARTRATE 50 MG TAB PO SCH (21:01)
[2024-11-23 06:26] LABS: Albumin Level 2.6 gm/dl (3.4-5.0); BUN Creatinine Ratio 31.4 (10-20); Bilirubin Direct 0.3 mg/dl (0-0.2); Bilirubin,Total 1.1 mg/dl (0.2-1.0); Calcium 8.5 mg/dl (8.6-10.3); Creatinine Clr Calc Pharmacy 64.6 ml/min; Potassium 4.4 mmol/L (3.5-5.1)
[2024-11-23 06:29] LABS: INR 1.1 (0.9-1.1); Prothrombin Time 11.6 Seconds (9.0-12.0)
--- NOTE | 2024-11-23 09:42 | Cardiology Progress Note ---
Date of Service November 23, 2024 Assessment & Plan (1) Acute exacerbation of CHF (congestive heart failure): Plan: * Transthoracic echocardiogram with noted mild left ventricular systolic dysfunction, LVEF 44%, moderate to severe MR which is unchanged compared to previous echo, mild to moderate tricuspid regurgitation now noted with moderate pulmonary hypertension, pulmonary systolic pressure estimated to be in the 50s which is a new finding. * Continue oral furosemide 40 mg daily (outpatient dose) * Hypomagnesemia noted, additional 2gm Mag sulfate ordered. * Monitor fluid balance, daily weight, GFR, and electrolytes. * Consider restart Entresto and/or Aldactone in 24-48 hours pending ongoing blood pressure assessment. (2) Atrial fibrillation with rapid ventricular response: Plan: * Persistent likely permanent atrial fibrillation with failed cardioversion 11/17/2024. * Elevated heart rates with activity, borderline control at rest * Amiodarone discontinued due to transaminitis * Increase metoprolol to 50mg BID, additional 25mx x 1 now * Digoxin level was low on presentation. She received 2 doses of IV digoxin, 125 mcg, 250 mcg 11/16/2024, and additional 125 mcg 11/17/2024. * Continue digoxin 0.125 mg Saturday, Saturday, and Saturday * Renal function and return to baseline, consider daily digoxin dosing pending clinical response to titration of metoprolol. * Eliquis restarted Plan Patient demonstrating clinical improvement after acute hospitalization with septic shock, acute viral illness. Underlying issues include past paroxysmal no w persistent atrial fibrillation. Chronic systolic and diastolic heart failure 1. Atrial fibrillation past paroxysmal now persistent. Good rate controls. Will transition metoprolol to tartrate to metoprolol succinate 50 mg twice per day. 2. Chronic systolic and diastolic heart failure with mildly reduced ejection fraction. Restart Entresto at reduced dose. Consider addition of Aldactone in a.m. Continue oral furosemide Agree with rehab Admission and Anticipated Discharge Date Admission Date: November 16, 2024 Subjective Patient was seen and personally examined. Chart, medications, telemetry reviewed. Atrial fibrillation rates better controlled. Predominantly in the 70s. Respiratory status appears improving. Patient notes cough is improved. Still mild lower extremity edema. No dizziness or lightheadedness. Blood pressures improving. Patient anticipating rehab on discharge Review of Systems Review of Systems: All systems reviewed & are unremarkable except as noted in Subjective Physical Exam Constitutional: well developed and well nourished; no acute distress ENMT: external ear and nose normal, oropharynx normal Respiratory: normal respiratory effort; no respiratory distress, no labored breathing and no retractions Auscultation: lungs clear to auscultation bilaterally, + diminished lung sounds (Bases bilateral) and + rales (Bases bilateral, Left greater than right); no crackles, no rhonchi and no wheezes Cardiovascular: Rate/Rhythm: + irregularly irregular Heart Sounds: normal S1 and normal S2; no murmur Vessels: no JVD Extremities: + edema (Trace pedal and ankle edema) Gastrointestinal (Abdomen): Inspection/Auscultation: normal bowel sounds; abdomen not distended Percussion/Palpation: abdomen soft; abdomen nontender, no guarding and abdomen not rigid Neurologic: CN's II-XI intact bilaterally and moves all extremities; no focal motor deficits Results & Data Vital Signs (Past 12 Hours) Vital Signs Temp Pulse Pulse Resp BP Pulse Ox O2 Del Method 11/23/24 07:40 36.3 C L 70 18 120/77 98 Room Air 11/23/24 02:35 36.5 C 99 H 20 100/69 92 Room Air 11/23/24 00:00 104 H 11/22/24 22:52 36.7 C 103 H 21 132/73 96 Room Air Laboratory Results Laboratory Results - last 24 hr 11/23/24 05:31 PT 11.6 INR 1.1 Sodium 141 Potassium 4.4 Chloride 103 Carbon Dioxide 34 H Anion Gap 4 BUN 22 Creatinine 0.70 Est Cr Clr Drug Dosing 64.6 eGFR 88.47 BUN/Creatinine Ratio 31.4 H Glucose 94 Estimat Average Glucose Pending Hemoglobin A1c Pending Calcium 8.5 L Magnesium Pending Total Bilirubin 1.1 H Direct Bilirubin 0.3 H AST 76 H ALT 487 H Alkaline Phosphatase 102 Total Protein 5.0 L Albumin 2.6 L (1) Acute exacerbation of CHF (congestive heart failure) Heart failure type: combined systolic and diastolic Qualified Code(s): I50.43 - Acute on chronic combined systolic (congestive) and diastolic (congestive) heart failure
[2024-11-23 09:55] LABS: Magnesium 1.8 mg/dl (1.7-2.4)
[2024-11-23] MEDS ORDERED: PHENAZOPYRIDINE HCL 100 MG TAB PO PRN (13:54)
--- NOTE | 2024-11-23 18:37 | Hospitalist Progress Note ---
Date of Service November 23, 2024 Assessment & Plan (1) Cardiogenic shock: Plan: present on admission 2nd to rapid a.fib in the setting of resolving fluA infection, probable bacterial pneumonia, & severe sepsis/septic shock shock resolved - off pressors 11/17 (2) Septic shock: Plan: shock resolved source - pneumonia in the setting of fluA infection (initially tested + on 11/03/24) 1/4 blood cx's from admission positive for multiple organisms -- these are likely contaminants repeat blood cx's negative 11/18/24 negative (3) Influenza A: Plan: initially tested + on 11/03/24 clinically resolved complicated by probable bacterial pneumonia cont abx course (4) Acute on chronic systolic CHF (congestive heart failure): Plan: EF 44% this admission meto tartrate transitioned to meto succ 50mg BID today low-dose Entresto to be resumed today cont to hold aldactone cont lasix 40mg qam BMP wnl today appears compensated on exam (5) Atrial fibrillation with rapid ventricular response: Plan: s/p emergent cardioversion hospital day #1 for rapid a.fib in the setting of shock then started on amiodarone IV however, with shock liver, the amiodarone was then stopped echo this admission - EF 44% cont meto succ 50mg BID cont Eliquis cont digoxin M/W/F (6) Pneumonia: Plan: likely bacterial superinfection day #7 of Rx was initially on rocephin, now PO cefdinir 300mg BID would stop cefdinir on 11/24/24 already finished doxy course clinically resolving (7) Lactic acidosis: Plan: 2nd to shock - resolved (8) Sepsis: Plan: source - lung with associated shock -- resolved 1/4 blood cx's + for multiple organisms - most certainly this is contamination repeat blood cx's negative 11/18/24 negative (9) Coronary artery disease: Plan: s/p JAILENE to RCA 2018, JAILENE to LAD 2020 resumed asa 81mg daily cont metoprolol BID cont to hold statin due to shock liver (10) Acute respiratory failure with hypoxia: Plan: 2nd to fluA infection +/- bacterial superinfection of lungs +/- pulm edema resolved off supplemental O2 (11) Shock liver: Plan: severe transaminitis in the setting of shock - continues to improve had associated high INR - now normal cont to hold statin completed NAC protocol while she was in ICU earlier in the admission (12) Numbness of feet: Plan: b/l feet - mainly the forefoot b/l / toes acute typically does not have numbness at home TSH wnl B12 level wnl K/mag wnl a few days ago had considerable ischemic appearing changes to feet while on pressors those ischemic changes improved after pressors were stopped arterial dopplers negative continues to be bothersome - thus, added gabapentin 100mg BID tolerating such due to persistence of the numbness I ordered MRI brain to r/o embolic strokes (in light of emergency cardioversion for a.fib) but MRI machine is down for 2-3 days (13) Positive blood culture: Plan: 1 out of 4 blood cx's from admission positive for multiple organisms likely contamination repeat blood cx's drawn and remain negative from 11/18/24 (14) Constipation: Plan: cont senna cont miralax resolved (15) Musculoskeletal chest pain: Plan: pain resolved Plan hypomagnesemia -- repleted/resolved VTE Prophylaxis - Eliquis BID appreciate cardiology assistance updated pt's son by phone 11/18 and 11/20 left message for pt's son on his voicemail 11/23/24 cont PT/OT dispo - rehab - centre care ? [facility]? family requested [facility] but no beds there Admission and Anticipated Discharge Date Admission Date: November 16, 2024 Subjective tele overnight - a.fib, rates upper 90s and low 100s patient resting in bed comfortably the b/l toe numbness (all toes) continues to improve no new areas of numbness no focal motor weakness denies dyspnea scant cough only no orthopnea told her [facility] does not have beds at this time Review of Systems Review of Systems: cv - no chest pain pulm - no dyspnea GI - no abd pain or N/V Physical Exam Physical Exam: gen - NAD, looks well, lying flat in bed comfortably neck - no JVD mouth - MMM, no thrush heart - irregularly irregular, s1 s2, no murmur lungs - mildly decreased BS bases; no rales today abd - soft NT ND BS+ ext - pulses 2+ b/l feet and popliteal b/l; cap refill about 2-3 sec; trace edema b/l worse on left skin - bruising right forearm resolving; bruise right sheets resolving Results & Data Results & Data Vital Signs (Past 12 Hours) Vital Signs Temp Pulse Pulse Resp BP Pulse Ox Pulse Ox 11/23/24 15:44 36.3 C L 100 H 18 94/64 L 97 11/23/24 15:38 95 H 11/23/24 12:20 101 H 11/23/24 11:51 36.6 C 98 H 17 126/75 91 11/23/24 08:00 96 11/23/24 08:00 97 H 11/23/24 07:40 36.3 C L 70 18 120/77 98 O2 Del Method O2 Del Method 11/23/24 15:44 Room Air 11/23/24 15:38 11/23/24 12:20 11/23/24 11:51 Room Air 11/23/24 08:00 Room Air 11/23/24 08:00 11/23/24 07:40 Room Air Laboratory Results Laboratory Results - last 24 hr 11/23/24 05:31 PT 11.6 INR 1.1 Sodium 141 Potassium 4.4 Chloride 103 Carbon Dioxide 34 H Anion Gap 4 BUN 22 Creatinine 0.70 Est Cr Clr Drug Dosing 64.6 eGFR 88.47 BUN/Creatinine Ratio 31.4 H Glucose 94 Estimat Average Glucose Pending Hemoglobin A1c Pending Calcium 8.5 L Magnesium 1.8 Total Bilirubin 1.1 H Direct Bilirubin 0.3 H AST 76 H ALT 487 H Alkaline Phosphatase 102 Total Protein 5.0 L Albumin 2.6 L PG Care Time/CCT Total # of Minutes Spent Total Time Spent with Patient: Total time spent is greater than 50% in coordination of care (as documented) at patient's floor/unit and/or counseling patient: Coding Level of Care Code 41755 SUB INP/OBS CARE 2/35MIN Diagnoses Cardiogenic shock R57.0 Septic shock A41.9; R65.21 Influenza A J10.1 Acute on chronic systolic CHF (congestive heart failure) I50.23 Atrial fibrillation with rapid ventricular response I48.91 Pneumonia J18.9 Lactic acidosis E87.20 Sepsis A41.9 Coronary artery disease I25.10 Acute respiratory failure with hypoxia J96.01 Shock liver K72.00 Numbness of feet R20.0 Positive blood culture R78.81 Constipation K59.00 Musculoskeletal chest pain R07.89
[2024-11-23] MEDS: VALSARTAN/SACUBITRIL 26/24MG TAB PO SCH (21:15)
[2024-11-23] MEDS: METOPROLOL SUCC 50MG EXT REL TAB PO SCH (21:16)
[2024-11-24 05:09] LABS: BUN Creatinine Ratio 29.5 (10-20); Calcium 8.2 mg/dl (8.6-10.3); Potassium 4.2 mmol/L (3.5-5.1)
--- NOTE | 2024-11-24 11:25 | Cardiology Progress Note ---
Date of Service November 24, 2024 Assessment & Plan (1) Acute exacerbation of CHF (congestive heart failure): Plan: * Transthoracic echocardiogram with noted mild left ventricular systolic dysfunction, LVEF 44%, moderate to severe MR which is unchanged compared to previous echo, mild to moderate tricuspid regurgitation now noted with moderate pulmonary hypertension, pulmonary systolic pressure estimated to be in the 50s which is a new finding. * Continue oral furosemide 40 mg daily (outpatient dose) * Hypomagnesemia noted, additional 2gm Mag sulfate ordered. * Monitor fluid balance, daily weight, GFR, and electrolytes. . (2) Atrial fibrillation with rapid ventricular response: Plan: * Persistent likely permanent atrial fibrillation with failed cardioversion 11/17/2024. Plan Patient demonstrating clinical improvement after acute hospitalization with septic shock, acute viral illness. Underlying issues include past paroxysmal now persistent atrial fibrillation. Chronic systolic and diastolic heart failure 1. Atrial fibrillation past paroxysmal now persistent. Good rate controls. Will transition metoprolol to tartrate to metoprolol succinate 50 mg twice per day. 2. Chronic systolic and diastolic heart failure with mildly reduced ejection fraction. Restart Entresto at reduced dose. Consider addition of Aldactone in a.m. Continue oral furosemide 11/24/2024 Issues addressed: 1. Atrial fibrillation, persistent with elevated ventricular response 2. Chronic systolic and diastolic heart failure with mildly reduced ejection fraction precipitated by acute illness 3. 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 Plan as previously recommended continue anticoagulation with Eliquis. Continue rate control with metoprolol succinate 50 mg twice per day and digoxin. Chronic systolic heart failure currently managed Continue reduced dose Entresto, furosemide 40 mg p.o. daily Restart spironolactone 12.5 mg p.o. daily Will sign off contact with further questions Admission and Anticipated Discharge Date Admission Date: November 16, 2024 Subjective Patient seen and examined. No acute complaints. Getting stronger per her own description. Heart rates generally controlled. Blood pressure occasionally low but has resumed Entresto at low-dose. No worsening edema. No fevers or chills. Respiratory status improved Review of Systems Review of Systems: All systems reviewed & are unremarkable except as noted in Subjective Physical Exam Physical Exam: Constitutional: well developed and well nourished; no acute distress ENMT: external ear and nose normal, oropharynx normal Respiratory: normal respiratory effort; no respiratory distress, no labored breathing and no retractions Auscultation: lungs clear to auscultation bilaterally, + diminished lung sounds (Bases bilateral) and + rales (Bases bilateral, Left greater than right); no crackles, no rhonchi and no wheezes Cardiovascular: Rate/Rhythm: + irregularly irregular Heart Sounds: normal S1 and normal S2; no murmur Vessels: no JVD Extremities: + edema (Trace pedal and ankle edema) Gastrointestinal (Abdomen): Inspection/Auscultation: normal bowel sounds; abdomen not distended Percussion/Palpation: abdomen soft; abdomen nontender, no guarding and abdomen not rigid Neurologic: CN's II-XI intact bilaterally and moves all extremities; no focal motor deficits Results & Data Vital Signs (Past 12 Hours) Vital Signs Temp Pulse Resp BP Pulse Ox O2 Del Method 11/24/24 11:03 36.4 C L 93 H 18 95 Room Air 11/24/24 07:19 36.4 C L 96 H 18 114/71 93 Room Air 11/24/24 04:00 36.4 C L 94 H 18 93/56 L 94 Room Air 11/23/24 23:32 36.3 C L 112 H 16 112/69 97 Room Air Laboratory Results Laboratory Results - last 24 hr 11/24/24 04:33 Sodium 139 Potassium 4.2 Chloride 104 Carbon Dioxide 30 Anion Gap 5 BUN 23 Creatinine 0.78 Est Cr Clr Drug Dosing 58.0 eGFR 77.69 BUN/Creatinine Ratio 29.5 H Glucose 102 H Calcium 8.2 L Ammonia 19.0 (1) Acute exacerbation of CHF (congestive heart failure) Heart failure type: combined systolic and diastolic Qualified Code(s): I50.43 - Acute on chronic combined systolic (congestive) and diastolic (congestive) heart failure
[2024-11-24 12:53] LABS: Estimated Average Glucose 128 mg/dl; Hemoglobin A1C 6.1 % (4.5-5.6)
[2024-11-24] MEDS ORDERED: ONDANSETRON 4 MG OD TAB PO PRN (13:00)
[2024-11-24] MEDS: ONDANSETRON 4 MG OD TAB PO ONE (13:15)
[2024-11-24] MEDS: SIMETHICONE 80 MG CHEW PO SCH (13:15)
--- NOTE | 2024-11-24 18:43 | Hospitalist Progress Note ---
Date of Service November 24, 2024 Assessment & Plan (1) Cardiogenic shock: Plan: present on admission 2nd to rapid a.fib in the setting of resolving fluA infection, probable bacterial pneumonia, & severe sepsis/septic shock shock resolved - off pressors 11/17 (2) Septic shock: Plan: shock resolved source - pneumonia in the setting of fluA infection (initially tested + on 11/03/24) 10/24 blood cx's from admission positive for multiple organisms -- these are likely contaminants repeat blood cx's negative 11/18/24 negative (3) Influenza A: Plan: initially tested + on 11/03/24 clinically resolved complicated by probable bacterial pneumonia cont abx course (4) Acute on chronic systolic CHF (congestive heart failure): Plan: EF 44% this admission meto tartrate transitioned to meto succ 50mg BID and Entresto resumed mildly hypotensive and asymptomatic this morning, discussed medications with building illuminating engineer who recommended continuing the same doses: expected transient hypotension from resuming Entresto. her BP did improve later in the day cont to hold aldactone cont lasix 40mg qam reviewed BMP creatinine and electrolytes are normal euvolemic on exam (5) Atrial fibrillation with rapid ventricular response: Plan: s/p emergent cardioversion hospital day #1 for rapid a.fib in the setting of shock then started on amiodarone IV however, with shock liver, the amiodarone was then stopped echo this admission - EF 44% cont meto succ 50mg BID cont Eliquis cont digoxin M/W/F she is mildly tachycardic but rates are acceptable (6) Pneumonia: Plan: likely bacterial superinfection treated with Rocephin/cefdinir through 11/24/2024 for total 7-day course. also completed a course of doxycycline clinically resolving (7) Lactic acidosis: Plan: 2nd to shock - resolved (8) Coronary artery disease: Plan: s/p JAILENE to RCA 2018, JAILENE to LAD 2020 resumed asa 81mg daily cont metoprolol BID cont to hold statin due to shock liver (9) Acute respiratory failure with hypoxia: Plan: 2nd to fluA infection +/- bacterial superinfection of lungs +/- pulm edema resolved off supplemental O2 (10) Shock liver: Plan: severe transaminitis in the setting of shock - continues to improve - last ALT 47, AST nearly normal had associated high INR - now normal, normal ammonia this morning completed NAC protocol while she was in ICU earlier in the admission - check LFTs in about a week and resume statin if normalized (11) Numbness of feet: Plan: b/l feet - mainly the forefoot b/l / toes acute typically does not have numbness at home TSH wnl B12 level wnl K/mag wnl a few days ago had considerable ischemic appearing changes to feet while on pressors those ischemic changes improved after pressors were stopped. Currently with good cap refill on toes bilaterally, no wounds or ulcers arterial dopplers negative continues to be bothersome - thus, added gabapentin 100mg BID tolerating such this is consistent with critical illness polyneuropathy, mild and may resolve, presentation is not stroke-like, is symmetric and I do not think brain MRI would be informative (12) Positive blood culture: Plan: 1 out of 4 blood cx's from admission positive for multiple organisms likely contamination repeat blood cx's drawn and remain negative from 11/18/24 (13) Constipation: Plan: cont senna cont miralax resolved (14) Musculoskeletal chest pain: Plan: pain resolved Plan hypomagnesemia -- repleted/resolved VTE Prophylaxis - Eliquis BID appreciate cardiology assistance updated pt's son by phone 11/18 and 11/20 left message for pt's son on his voicemail 11/23/24 cont PT/OT dispo - rehab - centre care discussed with care coord Admission and Anticipated Discharge Date Admission Date: November 16, 2024 Subjective Ana is feeling much better, she is sitting in the chair and has eaten lunch, she denies chest pain shortness of breath and lightheadedness Review of Systems 2 Review of Systems: PHYSICAL EXAMINATION Last 24h vital signs reviewed, see documentation in flowsheet General: comfortable appearing, no distress HEENT: Normocephalic, atraumatic, pupils round and equal, sclerae anicteric, no conjunctival injection, moist mucus membranes Lungs: Normal respiratory effort. Clear to auscultation bilaterally except for mild faint left base crackles. no wheezing Heart: irregularly irregular tachycardic, no murmurs. No JVD Abdomen: Soft, nontender, nondistended. Bowel sounds present. Extremities: Warm, dry, well-perfused. No extremity edema. Neuro: Alert and oriented x 4, face symmetric, moves 4 extremities well Psych: Normal affect and behavior Results & Data Results & Data Vital Signs (Past 12 Hours) Vital Signs Temp Pulse Pulse Resp BP BP Pulse Ox 11/24/24 16:00 103 H 11/24/24 14:53 107/74 11/24/24 14:39 97.3 F L 103 H 18 103/67 94 11/24/24 12:00 90/60 L 11/24/24 11:42 79/53 L 82/53 L 11/24/24 11:03 97.5 F L 93 H 18 95 11/24/24 08:00 88 11/24/24 08:00 11/24/24 07:19 97.5 F L 96 H 18 114/71 93 Pulse Ox O2 Del Method O2 Del Method 11/24/24 16:00 11/24/24 14:53 11/24/24 14:39 Room Air 11/24/24 12:00 11/24/24 11:42 11/24/24 11:03 Room Air 11/24/24 08:00 11/24/24 08:00 96 Room Air 11/24/24 07:19 Room Air Laboratory Results 11/18/24 04:25 11/24/24 04:33 PG Care Time/CCT Total # of Minutes Spent Total Time Spent with Patient: Total time spent is greater than 50% in coordination of care (as documented) at patient's floor/unit and/or counseling patient: Coding Level of Care Code 89632 SUB INP/OBS CARE 2/35MIN Diagnoses Cardiogenic shock R57.0 Septic shock A41.9; R65.21 Influenza A J10.1 Acute on chronic systolic CHF (congestive heart failure) I50.23 Atrial fibrillation with rapid ventricular response I48.91 Pneumonia J18.9 Lactic acidosis E87.20 Coronary artery disease I25.10 Acute respiratory failure with hypoxia J96.01 Shock liver K72.00 Numbness of feet R20.0 Positive blood culture R78.81 Constipation K59.00 Musculoskeletal chest pain R07.89
[2024-11-25 06:55] LABS: BUN Creatinine Ratio 30.5 (10-20); Calcium 8.2 mg/dl (8.6-10.3); Potassium 4.2 mmol/L (3.5-5.1)
--- NOTE | 2024-11-25 09:24 | Cardiology Progress Note ---
Date of Service November 25, 2024 Assessment & Plan (1) Acute exacerbation of CHF (congestive heart failure): Plan: * Transthoracic echocardiogram with noted mild left ventricular systolic dysfunction, LVEF 44%, moderate to severe MR which is unchanged compared to previous echo, mild to moderate tricuspid regurgitation now noted with moderate pulmonary hypertension, pulmonary systolic pressure estimated to be in the 50s which is a new finding. * Continue oral furosemide 40 mg daily (outpatient dose) * Hypomagnesemia noted, additional 2gm Mag sulfate ordered. * Monitor fluid balance, daily weight, GFR, and electrolytes. . (2) Atrial fibrillation with rapid ventricular response: Plan: * Persistent likely permanent atrial fibrillation with failed cardioversion 11/17/2024. Plan Patient demonstrating clinical improvement after acute hospitalization with septic shock, acute viral illness. Underlying issues include past paroxysmal now persistent atrial fibrillation. Chronic systolic and diastolic heart failure 1. Atrial fibrillation past paroxysmal now persistent. Good rate controls. Will transition metoprolol to tartrate to metoprolol succinate 50 mg twice per day. 2. Chronic systolic and diastolic heart failure with mildly reduced ejection fraction. Restart Entresto at reduced dose. Consider addition of Aldactone in a.m. Continue oral furosemide 11/24/2024 Issues addressed: 1. Atrial fibrillation, persistent with elevated ventricular response 2. Chronic systolic and diastolic heart failure with mildly reduced ejection fraction precipitated by acute illness 3. 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 Plan as previously recommended continue anticoagulation with Eliquis. Continue rate control with metoprolol succinate 50 mg twice per day and digoxin. Chronic systolic heart failure currently managed Continue reduced dose Entresto, furosemide 40 mg p.o. daily Restart spironolactone 12.5 mg p.o. daily 11/25/2024 Patient demonstrates clinical improvement though blood pressures trending lower with resultant holding of metoprolol succinate. As this medication is necessary for heart rate control will hold Entresto and resume as an outpatient. Continue furosemide and spironolactone as ordered. Increase activity Admission and Anticipated Discharge Date Admission Date: November 16, 2024 Subjective Patient was seen and personally examined. Telemetry reviewed. Patient feeling improved respiratory status improved. No worsening cough. Remains in atrial fibrillation with generally controlled heart rate. On initiation of Entresto blood pressures trended slightly lower. This is resulted in holding of beta-luis armando necessary for heart rate control Review of Systems Review of Systems: All systems reviewed & are unremarkable except as noted in Subjective Physical Exam Physical Exam: Constitutional: well developed and well nourished; no acute distress ENMT: external ear and nose normal, oropharynx normal Respiratory: normal respiratory effort; no respiratory distress, no labored breathing and no retractions Auscultation: + diminished lung sounds (Bases bilateral) and + crackles (Right base); no rhonchi and no wheezes Cardiovascular: Rate/Rhythm: + irregularly irregular Heart Sounds: normal S1 and normal S2; no murmur Vessels: no JVD Extremities: + edema (Trace pedal and ankle edema) Gastrointestinal (Abdomen): Inspection/Auscultation: normal bowel sounds; abdomen not distended Percussion/Palpation: abdomen soft; abdomen nontender, no guarding and abdomen not rigid Neurologic: CN's II-XI intact bilaterally and moves all extremities; no focal motor deficits Results & Data Vital Signs (Past 12 Hours) Vital Signs Temp Pulse Pulse Resp BP Pulse Ox O2 Del Method 11/25/24 07:26 36.2 C L 97 H 18 97/62 L 91 Room Air 11/25/24 04:02 101/58 L 11/25/24 03:11 36.3 C L 100 H 18 89/52 L 95 Room Air 11/24/24 22:45 36.4 C L 100 H 18 103/57 L 97 Room Air 11/24/24 22:24 103 H Laboratory Results Laboratory Results - last 24 hr 11/23/24 11/25/24 05:31 06:14 Sodium 139 Potassium 4.2 Chloride 106 Carbon Dioxide 31 Anion Gap 2 L BUN 25 H Creatinine 0.82 Est Cr Clr Drug Dosing 56.0 eGFR 73.17 BUN/Creatinine Ratio 30.5 H Glucose 86 Estimat Average Glucose 128 Hemoglobin A1c 6.1 H Calcium 8.2 L (1) Acute exacerbation of CHF (congestive heart failure) Heart failure type: combined systolic and diastolic Qualified Code(s): I50.43 - Acute on chronic combined systolic (congestive) and diastolic (congestive) heart failure
[2024-11-25] MEDS: SPIRONOLACTONE 12.5 MG TAB PO SCH (09:32)
--- NOTE | 2024-11-25 17:46 | Hospitalist Progress Note ---
Date of Service November 25, 2024 Assessment & Plan (1) Cardiogenic shock: Plan: present on admission 2nd to rapid a.fib in the setting of resolving fluA infection, probable bacterial pneumonia, & severe sepsis/septic shock shock resolved - off pressors 11/17 (2) Septic shock: Plan: shock resolved source - pneumonia in the setting of fluA infection (initially tested + on 11/03/24) 10/24 blood cx's from admission positive for multiple organisms -- these are likely contaminants repeat blood cx's negative 11/18/24 negative (3) Influenza A: Plan: initially tested + on 11/03/24 clinically resolved complicated by probable bacterial pneumonia cont abx course (4) Acute on chronic systolic CHF (congestive heart failure): Plan: EF 44% this admission continue metoprolol succinate 50mg BID and low-dose Entresto notes that metoprolol has been frequently held because of mild hypotension cont to hold aldactone - per cardiology recommendations which I reviewed likely resume tomorrow cont lasix 40mg qam BMP today remains normal, creatinine 0.82 BUN slightly elevated euvolemic on exam, leg edema persists (5) Atrial fibrillation with rapid ventricular response: Plan: s/p emergent cardioversion hospital day #1 for rapid a.fib in the setting of shock then started on amiodarone IV however, with shock liver, the amiodarone was then stopped echo this admission - EF 44% cont meto succ 50mg BID cont Eliquis cont digoxin M/W/F heart rate well-controlled today (6) Pneumonia: Plan: likely bacterial superinfection treated with Rocephin/cefdinir through 11/24/2024 for total 7-day course. also completed a course of doxycycline clinically resolving (7) Lactic acidosis: Plan: 2nd to shock - resolved (8) Coronary artery disease: Plan: s/p JAILENE to RCA 2018, JAILENE to LAD 2020 resumed asa 81mg daily cont metoprolol BID cont to hold statin due to shock liver (9) Acute respiratory failure with hypoxia: Plan: 2nd to fluA infection +/- bacterial superinfection of lungs +/- pulm edema resolved off supplemental O2 (10) Shock liver: Plan: severe transaminitis in the setting of shock - continues to improve - last ALT 47, AST nearly normal had associated high INR - now normal, normal ammonia this morning completed NAC protocol while she was in ICU earlier in the admission - check LFTs in about a week and resume statin if normalized (11) Numbness of feet: Plan: b/l feet - mainly the forefoot b/l / toes acute typically does not have numbness at home TSH wnl B12 level wnl K/mag wnl a few days ago had considerable ischemic appearing changes to feet while on pressors those ischemic changes improved after pressors were stopped. Currently with good cap refill on toes bilaterally, no wounds or ulcers arterial dopplers negative continues to be bothersome - thus, added gabapentin 100mg BID tolerating such this is consistent with critical illness polyneuropathy, mild and may resolve, presentation is not stroke-like, is symmetric and I do not think brain MRI would be informative (12) Positive blood culture: Plan: 1 out of 4 blood cx's from admission positive for multiple organisms likely contamination repeat blood cx's drawn and remain negative from 11/18/24 (13) Constipation: Plan: cont senna cont miralax resolved (14) Musculoskeletal chest pain: Plan: pain resolved Plan hypomagnesemia -- repleted/resolved VTE Prophylaxis - Eliquis BID updated pt's son by phone 11/18 and 11/20 left message for pt's son on his voicemail 11/23/24 cont PT/OT dispo - rehab - centre care today I discussed with managed care coordinator and completed peer to peer call with her insurance company for care home facility rehab authorization Admission and Anticipated Discharge Date Admission Date: November 16, 2024 Subjective no shortness of breath at rest but fatigues easily and has significant dyspnea on exertion she reports that at baseline she lives in a home with 6 steps to enter, usually only uses a four-wheel walker outside the house and for long distances, she still drives, she usually takes care of all her ADLs independently including dressing bathing and cooking Review of Systems 2 Review of Systems: PHYSICAL EXAMINATION Last 24h vital signs reviewed, see documentation in flowsheet General: comfortable appearing, no distress, sitting up in bed HEENT: Normocephalic, atraumatic, pupils round and equal, sclerae anicteric, no conjunctival injection, moist mucus membranes Lungs: Normal respiratory effort. Clear to auscultation bilaterally no wheezing Heart: irregularly irregular, no murmurs. No JVD Abdomen: Soft, nontender, nondistended. Bowel sounds present. Extremities: Warm, dry, well-perfused. 2+ lower extremity pitting edema. Neuro: Alert and oriented x 4, face symmetric, moves 4 extremities well Psych: Normal affect and behavior Results & Data Results & Data Vital Signs (Past 12 Hours) Vital Signs Temp Pulse Pulse Resp BP Pulse Ox Pulse Ox 11/25/24 15:56 98.1 F 64 18 106/64 95 11/25/24 11:19 94 H 11/25/24 11:06 97.3 F L 97 H 18 88/47 L 91 11/25/24 08:00 91 11/25/24 08:00 93 H 11/25/24 08:00 11/25/24 07:26 97.2 F L 97 H 18 97/62 L 91 O2 Del Method O2 Del Method 11/25/24 15:56 Room Air 11/25/24 11:19 11/25/24 11:06 Room Air 11/25/24 08:00 Nasal Cannula 11/25/24 08:00 11/25/24 08:00 Room Air 11/25/24 07:26 Room Air Laboratory Results 11/18/24 04:25 11/25/24 06:14 PG Care Time/CCT Total # of Minutes Spent Total Time Spent with Patient: I personally spent: 50 minutes today on clinical care activities including: reviewing chart notes and vital signs reviewing labs reviewing field consultant recommendations discussion with managed care coordinator peer to peer phone call with her insurance company examining and counseling the patient writing orders documentation Coding Level of Care Code 86026 SUB INP/OBS CARE 3/50MIN Diagnoses Cardiogenic shock R57.0 Septic shock A41.9; R65.21 Influenza A J10.1 Acute on chronic systolic CHF (congestive heart failure) I50.23 Atrial fibrillation with rapid ventricular response I48.91 Pneumonia J18.9 Lactic acidosis E87.20 Coronary artery disease I25.10 Acute respiratory failure with hypoxia J96.01 Shock liver K72.00 Numbness of feet R20.0 Positive blood culture R78.81 Constipation K59.00 Musculoskeletal chest pain R07.89
[2024-11-26 07:03] VITALS: RESP 18
[2024-11-26 11:04] VITALS: BP 117/76; PULSE 87; TEMP 97.3; O2SAT 96
== END 2024-11-26 13:10 | DRG 871 ==
LOC: ED 12:49 → 1E 17:45 → SUATTDRO 17:45 → 1E 19:53 → 4W 11-22 19:25